=== PATIENT | male | born 1940 | race Caucasian/White ===

== ENCOUNTER 2018-09-20 17:35 | Inpatient (IN) | payer MEDICARE, OTHER, SELFPAY ==
[2018-09-20 18:15] VITALS: BP 168/75; PULSE 79; RESP 16; TEMP 36.3; O2SAT 95; BMI 22.3
[2018-09-20 20:37] VITALS: PULSE 80; O2SAT 95
--- NOTE | 2018-09-20 21:53 | PCM.HP.STD ---
Problem List (1) Debility Status: Acute (2) Multiple falls Status: Acute (3) Healthcare-associated pneumonia Status: Acute (4) Urinary tract infection Status: Acute (5) Chronic obstructive pulmonary disease Status: Chronic (6) Bronchiectasis Status: Chronic (7) Gastric mass Status: Acute (8) Intra-abdominal lymphadenopathy Status: Acute (9) Diabetes mellitus Status: Chronic (10) Hypertension Status: Chronic (11) Hyperlipidemia Status: Chronic (12) GERD (gastroesophageal reflux disease) Status: Chronic History of Present Illness Date of Admission: 09/20/18 Chief Complaint: Here for rehabilitation, strengthening, prior to disposition determination. The patient is a 78 year old Male with below past medical history significant for COPD(no home oxygen), former 30 pack year smoker, diabetes, HTN, presented to [facility] Emergency Department 09/13/2018 with shortness of breath, weakness, productive cough, fever, chills nausea. 1 month prior, he was treated for community acquired pneumonia at [facility]. 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 Patient was treated with Vancomycin, Zosyn, Azithromycin after huerta cultures. Urine antigens for s. pneumo, legionella negative, patient will continue IV Zosyn for 3 more days to complete 10 day total course of IV antibiotics. Urine culture grew. E. Faecalis which is PCN sensitive. Blood cultures negative. 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 EGD with biopsy recommended for 2.4 x 2.4CM gastric mass on smaller curvature of stomach. Patient declined EGD. Oncology consulted but unable to treat without tissue biopsy. Patient's cough, pneumonia, shortness of breath, bronchiectasis improved with treatment, he will be discharged on prednisone taper. 09/20/2018 Admit to TCU with debility, here for rehabilitation, strengthening, intravenous antibiotics, prior to disposition determination. Resident's code status is [id number]-A. Consider EGD with biopsy after resident regains his strength, stamina. Past Medical History Past Medical History (Chronic Problems): Chronic Problems Chronic obstructive pulmonary disease (Chronic) Bronchiectasis (Chronic) Diabetes mellitus (Chronic) Hypertension (Chronic) Hyperlipidemia (Chronic) GERD (gastroesophageal reflux disease) (Chronic) Allergies Iodinated Contrast- Oral and IV Dye [CONTRASTS] Adverse Reaction (Verified 09/20/18 19:28) Unknown NSAIDS (Non-Steroidal Anti-Inflamma Adverse Reaction (Verified 09/20/18 19:28) GI bleed Home Medications: Ambulatory Orders Medication Instructions Recorded Ipratropium/Albuterol Sulfate 3 ml INHALATION Q2H PRN PRN 09/20/18 [Duoneb] Losartan Potassium [Cozaar] 75 mg PO DAILY 09/20/18 Metformin HCl 500 mg PO DAILY 09/20/18 Metoprolol(XL)Succ [Toprol Xl 50 mg PO DAILY 09/20/18 (Beta Radha)] Pantoprazole Sodium [Protonix] 40 mg PO DAILY 09/20/18 Piperacillin Sodium/Tazobactam 4.5 gm IV Q6H 09/20/18 [Zosyn 4.5 Gram Vial] Prednisone 10 mg PO DAILY 09/20/18 Surgical History: no surgical history, - - Left heart cath, EGD with cauterization gastric ulcer. Psychiatric History: No pertinent psych hx Lives: Spouse/ Significant Other Smoking Status: Former smoker - 30 pack year smoking history. Tobacco Use: Non-smoker Alcohol: None Drugs: None - *Family History Maternal History Items: No pertinent history Paternal History Items: No pertinent history Review of Systems Constitutional: Denies: Chills, Fever, Weight Change HEENT: Denies: Head Aches, Sinus Congestion, Sinus Drainage Cardiovascular: Denies: Chest Pain, Palpitations Respiratory: Denies: Cough, Shortness of breath at rest, Sputum production Gastrointestinal: Denies: Abdominal Pain, Nausea, Vomiting Genitourinary: Denies: Dysuria Musculoskeletal: Denies: Joint Pain, Joint Tenderness Skin: Denies: Rash, Wounds Neurological: Denies: Numbness, Tingling, Focal weakness Psychiatric: Denies: Anxiety, Depression, Homicidal Ideations, Suicidal Ideations Hematologic/ Lymphatic: Denies: Easy Bruising, Easy Bleeding VTE Information - Inpt Only VTE Present on Admission: No VTE Mechan Device Prophylaxis: Knee High LAUREL Hose VTE Pharm Prophylaxis ordered?: Yes Patient Problems: Active and Suspected Problems Debility (Acute) Multiple falls (Acute) Healthcare-associated pneumonia (Acute) Urinary tract infection (Acute) Gastric mass (Acute) Intra-abdominal lymphadenopathy (Acute) - Physical Exam General: Alert, Oriented x3, Cooperative HEENT: Atraumatic, PERRLA, EOMI, Normocephalic Neck: Supple, No JVD, Negative Carotid Bruits Lungs: Diminished - at bases., Rhonchi - Few. Cardiovascular: Regular rate, No murmurs Abdomen: Bowel Sounds Present, Soft, Non Tender Extremities: No edema, Capillary Refill Less than 3 Seconds Skin: No rashes, No breakdown Musculoskeletal: No Tenderness to Palpation of Joints or Extremities Neurological: Cranial nerves II-XII grossly intact Psych/Mental Status: Normal Affect, Appropriate Vital Signs Temp Pulse Resp BP Pulse Ox 97.3 F L 79 16 168/75 H 95 09/20/18 18:15 09/20/18 18:15 09/20/18 18:15 09/20/18 18:15 09/20/18 18:15 Oxygen Delivery Method Room Air Weight: 64.637 kg Body Mass Index (BMI) 22.3 Intake and Output for Last 24 Hours 09/18/18 09/19/18 09/20/18 23:59 23:59 23:59 Intake Total 120 / 120 Output Total 100 / 100 Balance Assessment/Plan All Active Problems Debility (Acute) Multiple falls (Acute) Healthcare-associated pneumonia (Acute) Urinary tract infection (Acute) Gastric mass (Acute) Intra-abdominal lymphadenopathy (Acute) 78 year old male with below past medical history hospitalized for sepsis, secondary to healthcare associated pneumonia, complicated by gastric mass with gastrohepatic lymphadenopathy, but patient declined evaluation, admitted to TCU with debility, here for rehabilitation, strengthening, prior to disposition determination. Debility - PT/OT. Dysphagia - ST. Pain - Tylenol 1000MG Q6H PRN mild pain. Bowel - Miralax 17GM daily, Dulcolax 10MG daily PRN. Pneumonia vaccination - Administer Prevnar 13 and/or Pneumovax 23 as necessary. DVT prophylaxis - Lovenox 30MG SC daily. COPD - Duoneb 3ML Q2H PRN, Prednisone taper. Hypertension - Metoprolol succinate 50MG daily, Losartan 100MG daily. Diabetes Mellitus II - Metformin 500MG daily, check A1c. GERD - Pantoprazole 40MG daily. Healthcare associated pneumonia/E. Faecalis urinary tract infection - Zosyn 3.375GM IV Q8H thru 09/23/2018. Gastric mass with intra-abdominal lymphadenopathy - Consider EGD with biopsy as outpatient.
[2018-09-20] MEDS: Piperacil/Tazobactam 3.375 GM/50 ML ML IV (21:59)
[2018-09-20 22:00] VITALS: PULSE 79; RESP 18
[2018-09-20] MEDS: Ipratropium/Albuterol Sulfate 3 ML AMPUL.NEB INHALATION (22:00)
--- NOTE | 2018-09-20 22:03 | HP.PCM_ITS ---
Problem List (1) Debility Status: Acute (2) Multiple falls Status: Acute (3) Healthcare-associated pneumonia Status: Acute (4) Urinary tract infection Status: Acute (5) Chronic obstructive pulmonary disease Status: Chronic (6) Bronchiectasis Status: Chronic (7) Gastric mass Status: Acute (8) Intra-abdominal lymphadenopathy Status: Acute (9) Diabetes mellitus Status: Chronic (10) Hypertension Status: Chronic (11) Hyperlipidemia Status: Chronic (12) GERD (gastroesophageal reflux disease) Status: Chronic History of Present Illness Date of Admission: 09/20/18 Chief Complaint: Here for rehabilitation, strengthening, prior to disposition determination. The patient is a 78 year old Male with below past medical history significant for COPD(no home oxygen), former 30 pack year smoker, diabetes, HTN, presented to [facility] Emergency Department 09/13/2018 with shortness of breath, weakness, productive cough, fever, chills nausea. 1 month prior, he was treated for community acquired pneumonia at [facility]. 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 Patient was treated with Vancomycin, Zosyn, Azithromycin after huerta cultures. Urine antigens for s. pneumo, legionella negative, patient will continue IV Zosyn for 3 more days to complete 10 day total course of IV antibiotics. Urine culture grew. E. Faecalis which is PCN sensitive. Blood cultures negative. 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 EGD with biopsy recommended for 2.4 x 2.4CM gastric mass on smaller curvature of stomach. Patient declined EGD. Oncology consulted but unable to treat without tissue biopsy. Patient's cough, pneumonia, shortness of breath, bronchiectasis improved with treatment, he will be discharged on prednisone taper. 09/20/2018 Admit to TCU with debility, here for rehabilitation, strengthening, intravenous antibiotics, prior to disposition determination. Resident's code status is [email or web address]-A. Consider EGD with biopsy after resident regains his strength, stamina. Past Medical History Past Medical History (Chronic Problems): Chronic Problems Chronic obstructive pulmonary disease (Chronic) Bronchiectasis (Chronic) Diabetes mellitus (Chronic) Hypertension (Chronic) Hyperlipidemia (Chronic) GERD (gastroesophageal reflux disease) (Chronic) Allergies Iodinated Contrast- Oral and IV Dye [CONTRASTS] Adverse Reaction (Verified 09/20/18 19:28) Unknown NSAIDS (Non-Steroidal Anti-Inflamma Adverse Reaction (Verified 09/20/18 19:28) GI bleed Home Medications: Ambulatory Orders Medication Instructions Recorded Ipratropium/Albuterol Sulfate 3 ml INHALATION Q2H PRN PRN 09/20/18 [Duoneb] Losartan Potassium [Cozaar] 75 mg PO DAILY 09/20/18 Metformin HCl 500 mg PO DAILY 09/20/18 Metoprolol(XL)Succ [Toprol Xl 50 mg PO DAILY 09/20/18 (Beta Radha)] Pantoprazole Sodium [Protonix] 40 mg PO DAILY 09/20/18 Piperacillin Sodium/Tazobactam 4.5 gm IV Q6H 09/20/18 [Zosyn 4.5 Gram Vial] Prednisone 10 mg PO DAILY 09/20/18 Surgical History: no surgical history, - - Left heart cath, EGD with cauterization gastric ulcer. Psychiatric History: No pertinent psych hx Lives: Spouse/ Significant Other Smoking Status: Former smoker - 30 pack year smoking history. Tobacco Use: Non-smoker Alcohol: None Drugs: None - *Family History Maternal History Items: No pertinent history Paternal History Items: No pertinent history Review of Systems Constitutional: Denies: Chills, Fever, Weight Change HEENT: Denies: Head Aches, Sinus Congestion, Sinus Drainage Cardiovascular: Denies: Chest Pain, Palpitations Respiratory: Denies: Cough, Shortness of breath at rest, Sputum production Gastrointestinal: Denies: Abdominal Pain, Nausea, Vomiting Genitourinary: Denies: Dysuria Musculoskeletal: Denies: Joint Pain, Joint Tenderness Skin: Denies: Rash, Wounds Neurological: Denies: Numbness, Tingling, Focal weakness Psychiatric: Denies: Anxiety, Depression, Homicidal Ideations, Suicidal Ideations Hematologic/ Lymphatic: Denies: Easy Bruising, Easy Bleeding VTE Information - Inpt Only VTE Present on Admission: No VTE Mechan Device Prophylaxis: Knee High LAUREL Hose VTE Pharm Prophylaxis ordered?: Yes Patient Problems: Active and Suspected Problems Debility (Acute) Multiple falls (Acute) Healthcare-associated pneumonia (Acute) Urinary tract infection (Acute) Gastric mass (Acute) Intra-abdominal lymphadenopathy (Acute) - Physical Exam General: Alert, Oriented x3, Cooperative HEENT: Atraumatic, PERRLA, EOMI, Normocephalic Neck: Supple, No JVD, Negative Carotid Bruits Lungs: Diminished - at bases., Rhonchi - Few. Cardiovascular: Regular rate, No murmurs Abdomen: Bowel Sounds Present, Soft, Non Tender Extremities: No edema, Capillary Refill Less than 3 Seconds Skin: No rashes, No breakdown Musculoskeletal: No Tenderness to Palpation of Joints or Extremities Neurological: Cranial nerves II-XII grossly intact Psych/Mental Status: Normal Affect, Appropriate Vital Signs Temp Pulse Resp BP Pulse Ox 97.3 F L 79 16 168/75 H 95 09/20/18 18:15 09/20/18 18:15 09/20/18 18:15 09/20/18 18:15 09/20/18 18:15 Oxygen Delivery Method Room Air Weight: 64.637 kg Body Mass Index (BMI) 22.3 Intake and Output for Last 24 Hours 09/18/18 09/19/18 09/20/18 23:59 23:59 23:59 Intake Total 120 / 120 Output Total 100 / 100 Balance Assessment/Plan All Active Problems Debility (Acute) Multiple falls (Acute) Healthcare-associated pneumonia (Acute) Urinary tract infection (Acute) Gastric mass (Acute) Intra-abdominal lymphadenopathy (Acute) 78 year old male with below past medical history hospitalized for sepsis, secondary to healthcare associated pneumonia, complicated by gastric mass with gastrohepatic lymphadenopathy, but patient declined evaluation, admitted to TCU with debility, here for rehabilitation, strengthening, prior to disposition determination. * Debility - PT/OT. * Dysphagia - ST. * Pain - Tylenol 1000MG Q6H PRN mild pain. * Bowel - Miralax 17GM daily, Dulcolax 10MG daily PRN. * Pneumonia vaccination - Administer Prevnar 13 and/or Pneumovax 23 as necessary. * DVT prophylaxis - Lovenox 30MG SC daily. * COPD - Duoneb 3ML Q2H PRN, Prednisone taper. * Hypertension - Metoprolol succinate 50MG daily, Losartan 100MG daily. * Diabetes Mellitus II - Metformin 500MG daily, check A1c. * GERD - Pantoprazole 40MG daily. * Healthcare associated pneumonia/E. Faecalis urinary tract infection - Zosyn 3.375GM IV Q8H thru 09/23/2018. * Gastric mass with intra-abdominal lymphadenopathy - Consider EGD with biopsy as outpatient.
--- NOTE | 2018-09-21 01:20 | NURSING ---
Pt noted to be urinating 100cc at a time. bladder scanned for 240cc of urine. Continue to monitor.
[2018-09-21] MEDS: Menthol/Lanolin/Calamine/Znox 113 GM Tube 1 APPLIC TOPICAL ×2 (05:19→16:59)
[2018-09-21] MEDS: Losartan Potassium 100 MG Tablet PO (05:20)
[2018-09-21] MEDS: Pantoprazole Sodium 40 MG Tablet PO (05:21)
[2018-09-21] MEDS: Enoxaparin 30 MG/0.3 ML Syringe SC (05:21)
[2018-09-21] MEDS: Piperacil/Tazobactam 3.375 GM/50 ML ML IV ×3 (05:24→21:06)
[2018-09-21] MEDS: 0.9% NaCl IVPB Med Flush (250 mL) 15 ML IV ×2 (05:24→21:01)
[2018-09-21] MEDS: 0.9% NaCl Peripheral Flush Adult/Peds IV ×2 (05:24→14:16)
[2018-09-21 05:25] VITALS: BP 162/96; PULSE 85
[2018-09-21] MEDS: Metoprolol(XL)Succ 50 MG Tablet PO (05:25)
[2018-09-21 06:24] LABS: Absolute Lymphocyte Count 1.33 X10^3/ul (0.83-4.51); Absolute Neutrophil Count 8.7 X10^3/uL (2.0-7.7); Basophil# 0.01 X10^3/uL; Basophil% 0.1 % (0-1); Eosinophil# 0.04 X10^3/uL; Eosinophils% 0.4 % (0-5); Hematocrit 42.5 % (40-54); Hemoglobin 13.8 g/dl (13.0-16.5); Lymphocyte # 1.33 X10^3/ul (4.0); Mean Corp Hgb Conc 32.5 g/gl (32-36); Mean Corpuscular Hgb 29.6 pg (27.0-32.0); Mean Corpuscular Volume 91.2 fL (80-94); Mean Platelet Vol. 10.2 fl (6.2-12.0); Monocyte# 0.89 X10^3/uL; Neutrophil % 78.7 % (47-70); Platelet Count 311 K/mm3 (150-450); RBC Distribution Width CV 13.4 % (11.6-14.6); RBC Distribution Width SD 43.6 fl (35.1-43.9); Red Blood Count 4.66 M/mm3 (4.6-6.2); White Blood Count 11.1 K/mm3 (4.4-11.0)
[2018-09-21 06:36] LABS: Bedside Glucose 160 mg/dL (70-110)
[2018-09-21 06:50] LABS: Anion Gap 9 (5-15); BUN 28 mg/dL (7-18); BUN/Creat Ratio 23.9 RATIO (10-20); Chloride 103 mmol/L (98-107); Creatinine, Serum 1.17 mg/dL (0.70-1.30); EST Glomerular Filtration Rate 64 mL/min (>60); Est Glom Filt Rate - Afr Amer 77 mL/min (>60); Estimated Creatinine Clearance 46.81 ml/min; Glucose 147 mg/dL (74-106); Potassium 3.9 mmol/L (3.5-5.1); Sodium Level 138 mmol/L (136-145)
[2018-09-21 07:01] LABS: POSITIVE COUNT NO; POSITIVE DIFFERENTIAL NO; POSITIVE MORPHOLOGY NO
[2018-09-21] MEDS: predniSONE 10 MG Tablet 40 MG PO (08:08)
[2018-09-21 08:48] LABS: Hemoglobin A1c 7.8 % (4.2-6.3)
--- NOTE | 2018-09-21 10:54 | NURSING ---
Addendum entered by Larisa Boyd 09/21/18 15:50: pt updated on new order, agreeable. Original Note: Addendum entered by Larisa Boyd 09/21/18 11:35: new order added by Dr Cruz [facility] for BPH Original Note: Dr Cruz updated on A1c, no new orders.
[2018-09-21] MEDS: Tamsulosin HCl 0.4 MG Capsule PO ×2 (11:34→17:00)
[2018-09-21] MEDS: Tuberculin,Purif.prot.deriv. 50 TU/ML Vial 5 ML ID (11:48)
[2018-09-21 16:00] VITALS: BP 123/69; PULSE 84; RESP 18; TEMP 35.7; O2SAT 93
--- NOTE | 2018-09-21 18:43 | NURSING ---
Gel cushion placed under pt d/t bottom hurting, pt felt that it made it worse. tried another it was too painful. pillow placed under buttocks and pt feels thats better than cushoins tried previously.
[2018-09-21] MEDS: Mirtazapine 15 MG Tablet 7.5 MG PO (21:01)
[2018-09-21 21:22] VITALS: PULSE 82; RESP 18
[2018-09-21] MEDS: Ipratropium/Albuterol Sulfate 3 ML AMPUL.NEB INHALATION (21:22)
[2018-09-22] VITALS (8 sets, daily range): BP systolic 104–137; BP diastolic 65–75; PULSE 77–113; RESP 16–24; TEMP 36.3–36.5; O2SAT 90–98
--- NOTE | 2018-09-22 02:11 | NURSING ---
Pt called out to nurses' station reporting he can't breath. Vitals obtained, O2 applied, posterior lungs with wheezes. Dr Cruz notified N.O. DuoNeb now, CXR, and Vest therapy q shift. Will continue to monitor and asses.
--- NOTE | 2018-09-22 02:50 | RAD_ITS ---
STUDY: X-RAY CHEST REASON FOR EXAM: Male, 78 years old. Cough TECHNIQUE: PA and lateral COMPARISON: None. FINDINGS: Lungs are well expanded. There are bibasilar infiltrates greater on the LEFT. There is a small LEFT pleural effusion. There is NO pneumothorax. Normal size heart. Normal mediastinum and yoselyn. Normal visualized pulmonary arteries. Normal visualized aortic arch and descending thoracic aorta. Normal visualized thoracic spine. Normal visualized ribs, clavicles, and shoulders. There is no demonstrated abnormality of the visualized soft tissue structures of the upper abdomen. RAD/Chest PA and Lateral IMPRESSION: Lungs are well expanded. There are bibasilar infiltrates greater on the LEFT. There is a small LEFT pleural effusion. There is NO pneumothorax. There is no demonstrated pleural abnormality. Normal size heart. Electronically Signed: Grupo Riley MD at 7:52 EST , Service support ,
[2018-09-22] MEDS: Piperacil/Tazobactam 3.375 GM/50 ML ML IV ×3 (05:06→21:39)
[2018-09-22] MEDS: Menthol/Lanolin/Calamine/Znox 113 GM Tube 1 APPLIC TOPICAL ×2 (05:13→17:23)
[2018-09-22] MEDS: Metoprolol(XL)Succ 50 MG Tablet PO (06:29)
[2018-09-22] MEDS: Losartan Potassium 100 MG Tablet PO (06:29)
[2018-09-22] MEDS: Pantoprazole Sodium 40 MG Tablet PO (06:29)
[2018-09-22] MEDS: Enoxaparin 30 MG/0.3 ML Syringe SC (06:30)
[2018-09-22] MEDS: Ipratropium/Albuterol Sulfate 3 ML AMPUL.NEB INHALATION ×3 (06:45→21:08)
[2018-09-22 06:46] LABS: Bedside Glucose 126 mg/dL (70-110)
--- NOTE | 2018-09-22 08:08 | NURSING ---
Dr. Cruz reviewed CXR, NO for incentive spirometer.
--- NOTE | 2018-09-22 08:37 | NURSING ---
NO for albuterol nebs [id number] PRN and incentive spirometer.
[2018-09-22] MEDS: predniSONE 10 MG Tablet PO (09:00)
[2018-09-22] MEDS: Acetaminophen 500 MG Tablet 1000 MG PO (10:29)
[2018-09-22] MEDS: 0.9% NaCl Peripheral Flush Adult/Peds IV ×3 (10:30→21:40)
--- NOTE | 2018-09-22 12:33 | PCM.PN.RX ---
<Farhat Garcia D - Last Filed: 09/22/18 12:33> Progress Note - Pharmacy Subjective: TCU Admission Objective: Allergies Iodinated Contrast- Oral and IV Dye [CONTRASTS] Adverse Reaction (Verified 09/20/18 19:28) Unknown NSAIDS (Non-Steroidal Anti-Inflamma Adverse Reaction (Verified 09/20/18 19:28) GI bleed Current Medications Generic Name Dose Route Start Last Admin Trade Name Freq PRN Reason Stop Dose Admin Acetaminophen 1,000 mg 09/20/18 22:14 09/22/18 10:29 Tylenol PO 1,000 mg Q8H PRN PRN Administration MILD PAIN (1-11/28) Albuterol Sulfate 2.5 mg 09/22/18 08:31 Ventolin Aerosols INHALATION Q2H PRN PRN SHORTNESS OF BREATH Albuterol/Ipratropium 3 ml 09/21/18 16:45 09/22/18 06:45 Duoneb INHALATION 3 ml Q6HWA.RT GLORIA Administration Bisacodyl 10 mg 09/20/18 22:15 Dulcolax PO DAILY PRN Constipation Calamine/Phenol 1 applic 09/21/18 06:00 09/22/18 05:13 Calmoseptine Ointment TOPICAL 1 applicatio BID GLORIA Administration Protocol Enoxaparin Sodium 30 mg 09/21/18 06:00 09/22/18 06:30 Lovenox SC 30 mg DAILY@0600 GLORIA Administration Piperacillin Sod/Tazobactam Sod 3.375 gm in 50 mls @ 12.5 mls/hr 09/20/18 22:00 09/22/18 05:06 Zosyn IV 09/23/18 23:59 12.5 mls/hr Q8 GLORIA Administration Sodium Chloride 250 mls @ 15 mls/hr 09/20/18 23:30 09/21/18 21:01 IV 15 mls/hr .[id number] PRN Administration SALINE FLUSH Losartan Potassium 100 mg 09/21/18 06:00 09/22/18 06:29 Cozaar PO 100 mg DAILY GLORIA Administration Metformin HCl 500 mg 09/21/18 08:00 09/22/18 09:00 Glucophage PO 500 mg DAILY@0800 GLORIA Administration Metoprolol Succinate 50 mg 09/21/18 06:00 09/22/18 06:29 Toprol Xl (Beta Radha) PO 50 mg DAILY GLORIA Administration Mirtazapine 7.5 mg 09/21/18 22:00 09/21/18 21:01 Remeron PO 7.5 mg QHS GLORIA Administration Multi-Ingredient Cream 1 applic 09/21/18 01:20 Eucerin TOPICAL BID PRN PRN Protocol Pantoprazole Sodium 40 mg 09/21/18 06:00 09/22/18 06:29 Protonix PO 40 mg DAILY GLORIA Administration Polyethylene Glycol 17 gm 09/21/18 06:00 09/22/18 06:30 Miralax PO Not Given DAILY GLORIA Prednisone 40 mg 09/22/18 08:00 09/22/18 09:00 PO 09/30/18 07:59 40 mg DAILY@0800 GLORIA Administration Taper Sodium Chloride 5 - 15 ml 09/20/18 23:30 09/22/18 10:30 IV 10 ml UD PRN Administration SALINE FLUSH Tamsulosin HCl 0.4 mg 09/21/18 17:30 09/21/18 17:00 Flomax PO 0.4 mg DAILY@1730 GLORIA Administration Tuberculin PPD 5 tu 09/28/18 10:00 Tubersol, Aplisol, Ppd ID 09/28/18 10:01 X1 ONE Problem List Debility (Acute) Multiple falls (Acute) Healthcare-associated pneumonia (Acute) Urinary tract infection (Acute) Chronic obstructive pulmonary disease (Chronic) Bronchiectasis (Chronic) Gastric mass (Acute) Intra-abdominal lymphadenopathy (Acute) Diabetes mellitus (Chronic) Hypertension (Chronic) Hyperlipidemia (Chronic) GERD (gastroesophageal reflux disease) (Chronic) Vital Signs Temp Pulse Resp BP Pulse Ox 97.7 F L 77 18 137/75 H 90 09/22/18 02:03 09/22/18 06:45 09/22/18 06:45 09/22/18 06:29 09/22/18 06:45 Oxygen Flow Rate (L/min) 2 Oxygen Delivery Method Room Air Weight: 61.915 kg Body Mass Index (BMI) 22.3 Sodium 138 mmol/L (136-145) 09/21/18 05:15 Potassium 3.9 mmol/L (3.5-5.1) 09/21/18 05:15 Chloride 103 mmol/L (98-107) 09/21/18 05:15 Carbon Dioxide 26.0 mmol/L (21.0-32.0) 09/21/18 05:15 Anion Gap 9 (5-15) 09/21/18 05:15 BUN 28 mg/dL (7-18) H 09/21/18 05:15 Creatinine 1.17 mg/dL (0.70-1.30) 09/21/18 05:15 Est GFR (MDRD) Af Amer 77 mL/min (>60) 09/21/18 05:15 Est GFR (MDRD) Non-Af 64 mL/min (>60) 09/21/18 05:15 BUN/Creatinine Ratio 23.9 RATIO (10-20) H 09/21/18 05:15 Glucose 147 mg/dL (74-106) H 09/21/18 05:15 Assessment/Plan: 1) Pain APAP for mild pain. Continue to monitor prn medication use, daily pain scores. 2) Pulm Duoneb aerosols, prn albuterol, prednisone. Continue to monitor prn medication use, for shortness of breath. 3) HTN Losartan, metoprolol XL. Continue to monitor BP/HR, electrolytes, renal function. 4) DM2 Metformin daily. Continue to monitor BGT, renal function. 5) GI Pantoprazole daily. Continue to monitor s/s GI distress. 6) ID Piperacillin/tazobactam until 09/23. Continue to monitor s/s infection. 7) BPH Tamsulosin daily. Continue to monitor for symptoms. 8) DVT PPx Enoxaparin daily. Continue to monitor for bleeding/clot. Psychotropic Medications: 9) Appetite/Insomnia Mirtazapine at HS. Continue to monitor for insomnia, weight loss. Unnecessary Medications: None Bowel Regimen: 10) PEG, prn bisacodyl. Continue to monitor prn medication use, for constipation/diarrhea. Date of Note:: 09/22/18 - Provider Comments Provider responsibility: Provider responsible to enter orders to implement recommendations <Dion Cruz Chi - Last Filed: 09/22/18 17:54> Progress Note - Pharmacy Subjective: [] Objective: Allergies Iodinated Contrast- Oral and IV Dye [CONTRASTS] Adverse Reaction (Verified 09/20/18 19:28) Unknown NSAIDS (Non-Steroidal Anti-Inflamma Adverse Reaction (Verified 09/20/18 19:28) GI bleed Current Medications Generic Name Dose Route Start Last Admin Trade Name Freq PRN Reason Stop Dose Admin Acetaminophen 1,000 mg 09/20/18 22:14 09/22/18 10:29 Tylenol PO 1,000 mg Q8H PRN PRN Administration MILD PAIN (1-10) Albuterol Sulfate 2.5 mg 09/22/18 08:31 Ventolin Aerosols INHALATION Q2H PRN PRN SHORTNESS OF BREATH Albuterol/Ipratropium 3 ml 09/21/18 16:45 09/22/18 13:58 Duoneb INHALATION 3 ml Q6HWA.RT GLORIA Administration Bisacodyl 10 mg 09/20/18 22:15 Dulcolax PO DAILY PRN Constipation Calamine/Phenol 1 applic 09/21/18 06:00 09/22/18 17:23 Calmoseptine Ointment TOPICAL 1 applicatio BID GLORIA Administration Protocol Enoxaparin Sodium 30 mg 09/21/18 06:00 09/22/18 06:30 Lovenox SC 30 mg DAILY@0600 GLORIA Administration Piperacillin Sod/Tazobactam Sod 3.375 gm in 50 mls @ 12.5 mls/hr 09/20/18 22:00 09/22/18 13:35 Zosyn IV 09/23/18 23:59 12.5 mls/hr Q8 GLORIA Administration Sodium Chloride 250 mls @ 15 mls/hr 09/20/18 23:30 09/21/18 21:01 IV 15 mls/hr .[id number] PRN Administration SALINE FLUSH Losartan Potassium 100 mg 09/21/18 06:00 09/22/18 06:29 Cozaar PO 100 mg DAILY GLORIA Administration Metformin HCl 500 mg 09/21/18 08:00 09/22/18 09:00 Glucophage PO 500 mg DAILY@0800 GLORIA Administration Metoprolol Succinate 50 mg 09/21/18 06:00 09/22/18 06:29 Toprol Xl (Beta Radha) PO 50 mg DAILY GLORIA Administration Mirtazapine 7.5 mg 09/21/18 22:00 09/21/18 21:01 Remeron PO 7.5 mg QHS GLORIA Administration Multi-Ingredient Cream 1 applic 09/21/18 01:20 Eucerin TOPICAL BID PRN PRN Protocol Pantoprazole Sodium 40 mg 09/21/18 06:00 09/22/18 06:29 Protonix PO 40 mg DAILY GLORIA Administration Polyethylene Glycol 17 gm 09/21/18 06:00 09/22/18 06:30 Miralax PO Not Given DAILY GLORIA Prednisone 40 mg 09/22/18 08:00 09/22/18 09:00 PO 09/30/18 07:59 40 mg DAILY@0800 GLORIA Administration Taper Sodium Chloride 5 - 15 ml 09/20/18 23:30 09/22/18 13:36 IV 10 ml UD PRN Administration SALINE FLUSH Tamsulosin HCl 0.4 mg 09/21/18 17:30 09/22/18 17:22 Flomax PO 0.4 mg DAILY@1730 GLORIA Administration Tuberculin PPD 5 tu 09/28/18 10:00 Tubersol, Aplisol, Ppd ID 09/28/18 10:01 X1 ONE Problem List Debility (Acute) Multiple falls (Acute) Healthcare-associated pneumonia (Acute) Urinary tract infection (Acute) Chronic obstructive pulmonary disease (Chronic) Bronchiectasis (Chronic) Gastric mass (Acute) Intra-abdominal lymphadenopathy (Acute) Diabetes mellitus (Chronic) Hypertension (Chronic) Hyperlipidemia (Chronic) GERD (gastroesophageal reflux disease) (Chronic) Vital Signs Temp Pulse Resp BP Pulse Ox 97.3 F L 92 18 104/65 95 09/22/18 15:49 09/22/18 15:49 09/22/18 15:49 09/22/18 15:49 09/22/18 15:49 Oxygen Flow Rate (L/min) 2 Oxygen Delivery Method Room Air Weight: 61.915 kg Body Mass Index (BMI) 22.3 Sodium 138 mmol/L (136-145) 09/21/18 05:15 Potassium 3.9 mmol/L (3.5-5.1) 09/21/18 05:15 Chloride 103 mmol/L (98-107) 09/21/18 05:15 Carbon Dioxide 26.0 mmol/L (21.0-32.0) 09/21/18 05:15 Anion Gap 9 (5-15) 09/21/18 05:15 BUN 28 mg/dL (7-18) H 09/21/18 05:15 Creatinine 1.17 mg/dL (0.70-1.30) 09/21/18 05:15 Est GFR (MDRD) Af Amer 77 mL/min (>60) 09/21/18 05:15 Est GFR (MDRD) Non-Af 64 mL/min (>60) 09/21/18 05:15 BUN/Creatinine Ratio 23.9 RATIO (10-20) H 09/21/18 05:15 Glucose 147 mg/dL (74-106) H 09/21/18 05:15 Assessment/Plan: Psychotropic Medications: Unnecessary Medications: Bowel Regimen: - Provider Comments Provider responsibility: Provider responsible to enter orders to implement recommendations Provider Comments to Recommendations by Pharmacy: Agree
[2018-09-22] MEDS: Tamsulosin HCl 0.4 MG Capsule PO (17:22)
--- NOTE | 2018-09-22 18:46 | NURSING ---
NO to add magic cup to meals.
[2018-09-22] MEDS: 0.9% NaCl IVPB Med Flush (250 mL) 15 ML IV (21:39)
[2018-09-22] MEDS: Mirtazapine 15 MG Tablet 7.5 MG PO (21:40)
[2018-09-22] MEDS: Albuterol 2.5 MG/3 ML VIAL.NEB. INHALATION (23:20)
[2018-09-23] MEDS: Piperacil/Tazobactam 3.375 GM/50 ML ML IV ×3 (05:08→21:07)
[2018-09-23] MEDS: Menthol/Lanolin/Calamine/Znox 113 GM Tube 1 APPLIC TOPICAL ×2 (05:10→17:54)
[2018-09-23 05:11] VITALS: BP 150/81; PULSE 74
[2018-09-23] MEDS: Metoprolol(XL)Succ 50 MG Tablet PO (05:11)
[2018-09-23] MEDS: Pantoprazole Sodium 40 MG Tablet PO (05:11)
[2018-09-23] MEDS: Losartan Potassium 100 MG Tablet PO (05:11)
[2018-09-23] MEDS: Enoxaparin 30 MG/0.3 ML Syringe SC (05:11)
[2018-09-23 06:31] LABS: Bedside Glucose 143 mg/dL (70-110)
[2018-09-23 06:45] VITALS: PULSE 82; RESP 20
[2018-09-23] MEDS: Ipratropium/Albuterol Sulfate 3 ML AMPUL.NEB INHALATION ×3 (06:45→23:38)
[2018-09-23] MEDS: predniSONE 10 MG Tablet PO (08:04)
[2018-09-23 11:40] VITALS: PULSE 84; RESP 20
[2018-09-23] MEDS: 0.9% NaCl Peripheral Flush Adult/Peds IV ×2 (14:06→21:07)
[2018-09-23] MEDS: 0.9% NaCl IVPB Med Flush (250 mL) 15 ML IV (14:06)
[2018-09-23 15:05] LABS: Bedside Glucose 226 mg/dL (70-110)
--- NOTE | 2018-09-23 15:20 | NURSING ---
Addendum entered by Sandra Oconnell 09/23/18 18:10: DR. THORNE AWARE. N.O. FOR NS BOLUS. Original Note: 1500-KELLEIGH FROM P.T. INFORMED THIS NURSE THAT R' BECAME UNSTEADY AND C/O DIZZINESS WHILE IN THERAPY. ASSISTED R' BACK TO R/C. VS OBTAINED- 125/78, 92HR, 97%RA, 96.1, 18R. ONCE BACK IN R/C R' DENIES FURTHER DIZZINESS. NEURO CHECKS WNL. R' DENIED CP. R' SLIGHTLY SOB. BLOOD SUGAR CHECKED-226. ENCOURAGED R' TO DRINK FLUIDS. THICKENED JUICE GIVEN PER REQUEST. WILL MONITOR. RESTING AT THIS TIME WITH LEGS ELEVATED IN R/C.
[2018-09-23 15:46] VITALS: BP 125/78; PULSE 92; RESP 18; TEMP 35.6; O2SAT 96
[2018-09-23] MEDS: Tamsulosin HCl 0.4 MG Capsule PO (17:54)
--- NOTE | 2018-09-23 18:10 | NURSING ---
NO for 1L IV NS bolus.
[2018-09-23] MEDS: 0.9% Normal Saline 1,000 ML 999 ML IV (18:12)
[2018-09-23] MEDS: Mirtazapine 15 MG Tablet 7.5 MG PO (20:23)
[2018-09-23 23:37] VITALS: PULSE 82; RESP 20
[2018-09-24 05:16] VITALS: BP 158/80; PULSE 78
[2018-09-24] MEDS: Losartan Potassium 100 MG Tablet PO (05:16)
[2018-09-24] MEDS: Pantoprazole Sodium 40 MG Tablet PO (05:16)
[2018-09-24] MEDS: Metoprolol(XL)Succ 50 MG Tablet PO (05:16)
[2018-09-24] MEDS: Menthol/Lanolin/Calamine/Znox 113 GM Tube 1 APPLIC TOPICAL ×2 (05:17→16:05)
[2018-09-24] MEDS: Enoxaparin 30 MG/0.3 ML Syringe SC (05:17)
[2018-09-24 06:36] LABS: Bedside Glucose 115 mg/dL (70-110)
[2018-09-24 06:45] VITALS: PULSE 88; RESP 18; O2SAT 95
[2018-09-24] MEDS: Ipratropium/Albuterol Sulfate 3 ML AMPUL.NEB INHALATION ×2 (06:45→13:40)
[2018-09-24] MEDS: predniSONE 10 MG Tablet PO (08:04)
[2018-09-24 13:40] VITALS: PULSE 86; RESP 16
[2018-09-24 15:21] VITALS: BP 119/77; PULSE 93; RESP 18; TEMP 36.9; O2SAT 94
[2018-09-24] MEDS: Tamsulosin HCl 0.4 MG Capsule PO (17:29)
--- NOTE | 2018-09-24 18:45 | NURSING ---
Attempt made to move pt closer to nurses' station for safety. Pt transferred to rm 12. Pt very upset and angry. Pt informed staff he was going to transfer back to rm [address] Cruz aware. Dr Cruz requesting staff transfer pt back to rm 19.
[2018-09-24] MEDS: Mirtazapine 15 MG Tablet 7.5 MG PO (20:34)
[2018-09-25 06:03] VITALS: BP 148/77; PULSE 92
[2018-09-25] MEDS: Metoprolol(XL)Succ 50 MG Tablet PO (06:03)
[2018-09-25] MEDS: Enoxaparin 30 MG/0.3 ML Syringe SC (06:04)
[2018-09-25] MEDS: Polyethylene Glycol 3350 17 GM PACKET PO (06:04)
[2018-09-25] MEDS: Pantoprazole Sodium 40 MG Tablet PO (06:04)
[2018-09-25] MEDS: Menthol/Lanolin/Calamine/Znox 113 GM Tube 1 APPLIC TOPICAL ×2 (06:04→18:16)
[2018-09-25] MEDS: Losartan Potassium 100 MG Tablet PO (06:04)
[2018-09-25 06:31] LABS: Bedside Glucose 124 mg/dL (70-110)
[2018-09-25 06:35] VITALS: PULSE 88; RESP 20; O2SAT 96
[2018-09-25] MEDS: Ipratropium/Albuterol Sulfate 3 ML AMPUL.NEB INHALATION ×3 (06:35→21:15)
[2018-09-25] MEDS: predniSONE 10 MG Tablet PO (08:04)
[2018-09-25 13:20] VITALS: PULSE 85; RESP 20
[2018-09-25 16:00] VITALS: BP 121/71; PULSE 106; RESP 18; TEMP 35.8; O2SAT 95
[2018-09-25] MEDS: Tamsulosin HCl 0.4 MG Capsule PO (18:14)
[2018-09-25] MEDS: Mirtazapine 15 MG Tablet 7.5 MG PO (21:00)
[2018-09-25 21:15] VITALS: PULSE 93; RESP 18
--- NOTE | 2018-09-25 21:32 | CPS ---
chun not done this round, pt very drowsy, will be done in am
[2018-09-26 05:44] VITALS: BP 129/58; PULSE 109
[2018-09-26] MEDS: Pantoprazole Sodium 40 MG Tablet PO (05:44)
[2018-09-26] MEDS: Metoprolol(XL)Succ 50 MG Tablet PO (05:44)
[2018-09-26] MEDS: Losartan Potassium 100 MG Tablet PO (05:45)
[2018-09-26] MEDS: Enoxaparin 30 MG/0.3 ML Syringe SC (05:45)
[2018-09-26] MEDS: Menthol/Lanolin/Calamine/Znox 113 GM Tube 1 APPLIC TOPICAL ×2 (05:52→17:27)
[2018-09-26 06:46] LABS: Bedside Glucose 147 mg/dL (70-110)
[2018-09-26] MEDS: Ipratropium/Albuterol Sulfate 3 ML AMPUL.NEB INHALATION (06:50)
[2018-09-26 07:07] VITALS: PULSE 89; RESP 17; O2SAT 95
--- NOTE | 2018-09-26 07:08 | CPS ---
did not do vest, patient sleeping
[2018-09-26] MEDS: predniSONE 10 MG Tablet PO (08:24)
[2018-09-26 13:18] VITALS: PULSE 82; RESP 18
[2018-09-26 15:25] VITALS: BP 109/55; PULSE 91; RESP 17; TEMP 36.9; O2SAT 95
[2018-09-26] MEDS: Tamsulosin HCl 0.4 MG Capsule PO (17:27)
[2018-09-26] MEDS: Mirtazapine 15 MG Tablet 7.5 MG PO (19:42)
[2018-09-27 05:07] VITALS: BP 125/66; PULSE 93
[2018-09-27] MEDS: Metoprolol(XL)Succ 50 MG Tablet PO (05:07)
[2018-09-27] MEDS: Losartan Potassium 50 MG Tablet PO (05:08)
[2018-09-27] MEDS: Pantoprazole Sodium 40 MG Tablet PO (05:08)
[2018-09-27] MEDS: Enoxaparin 30 MG/0.3 ML Syringe SC (05:08)
[2018-09-27] MEDS: Menthol/Lanolin/Calamine/Znox 113 GM Tube 1 APPLIC TOPICAL ×2 (05:11→17:51)
[2018-09-27 06:37] VITALS: PULSE 87; RESP 18; O2SAT 97
[2018-09-27] MEDS: Ipratropium/Albuterol Sulfate 3 ML AMPUL.NEB INHALATION ×2 (06:37→18:34)
[2018-09-27 06:45] LABS: Bedside Glucose 114 mg/dL (70-110)
[2018-09-27] MEDS: predniSONE 10 MG Tablet PO (08:46)
[2018-09-27 12:55] VITALS: PULSE 100; RESP 16
[2018-09-27 15:45] VITALS: BP 120/67; PULSE 87; RESP 16; TEMP 35.8; O2SAT 97
--- NOTE | 2018-09-27 16:03 | CASEMGMT ---
Brief interview for mental status (BIMS) and resident mood interview (PHQ-9) completed on this day. BIMS score 15/15. PHQ-9 score
[2018-09-27] MEDS: Tamsulosin HCl 0.4 MG Capsule PO (17:51)
[2018-09-27 18:34] VITALS: PULSE 88; RESP 16; O2SAT 97
[2018-09-27] MEDS: Mirtazapine 15 MG Tablet 7.5 MG PO (20:30)
[2018-09-28] MEDS: Polyethylene Glycol 3350 17 GM PACKET PO (06:02)
[2018-09-28 06:03] VITALS: BP 116/63; PULSE 84
[2018-09-28] MEDS: Losartan Potassium 50 MG Tablet PO (06:03)
[2018-09-28] MEDS: Enoxaparin 30 MG/0.3 ML Syringe SC (06:03)
[2018-09-28] MEDS: Metoprolol(XL)Succ 50 MG Tablet PO (06:03)
[2018-09-28] MEDS: Pantoprazole Sodium 40 MG Tablet PO (06:03)
[2018-09-28] MEDS: Menthol/Lanolin/Calamine/Znox 113 GM Tube 1 APPLIC TOPICAL ×2 (06:14→16:44)
[2018-09-28 06:24] LABS: Absolute Lymphocyte Count 2.34 X10^3/ul (0.83-4.51); Absolute Neutrophil Count 4.6 X10^3/uL (2.0-7.7); Basophil# 0.03 X10^3/uL; Basophil% 0.4 % (0-1); Eosinophil# 0.08 X10^3/uL; Hematocrit 36.1 % (40-54); Hemoglobin 11.4 g/dl (13.0-16.5); Lymphocyte # 2.34 X10^3/ul (4.0); Lymphocyte % 30.5 % (19-41); Mean Corp Hgb Conc 31.6 g/gl (32-36); Mean Corpuscular Hgb 29.6 pg (27.0-32.0); Mean Corpuscular Volume 93.8 fL (80-94); Mean Platelet Vol. 10.6 fl (6.2-12.0); Monocyte# 0.59 X10^3/uL; Monocyte% 7.7 % (0-10); Platelet Count 198 K/mm3 (150-450); RBC Distribution Width CV 14.7 % (11.6-14.6); RBC Distribution Width SD 48.2 fl (35.1-43.9); Red Blood Count 3.85 M/mm3 (4.6-6.2); White Blood Count 7.7 K/mm3 (4.4-11.0)
[2018-09-28 06:26] LABS: BUN 39 mg/dL (7-18); Creatinine, Serum 1.13 mg/dL (0.70-1.30); EST Glomerular Filtration Rate 67 mL/min (>60); Estimated Creatinine Clearance 46.42 ml/min; Glucose 110 mg/dL (74-106); POSITIVE COUNT NO; POSITIVE DIFFERENTIAL NO; POSITIVE MORPHOLOGY NO
[2018-09-28 06:27] LABS: Anion Gap 8 (5-15); BUN/Creat Ratio 34.5 RATIO (10-20); Calcium,Total 8.4 mg/dL (8.5-10.1); Chloride 108 mmol/L (98-107); Est Glom Filt Rate - Afr Amer 80 mL/min (>60); Potassium 3.8 mmol/L (3.5-5.1); Sodium Level 144 mmol/L (136-145)
[2018-09-28 06:41] LABS: Bedside Glucose 108 mg/dL (70-110)
[2018-09-28 06:58] VITALS: PULSE 90; RESP 18
[2018-09-28] MEDS: predniSONE 10 MG Tablet PO (07:55)
[2018-09-28] MEDS: Tuberculin,Purif.prot.deriv. 50 TU/ML Vial 5 ML ID (10:35)
[2018-09-28 13:08] VITALS: PULSE 97; RESP 18
[2018-09-28 15:21] VITALS: BP 104/61; PULSE 94; RESP 18; TEMP 36.2; O2SAT 94
[2018-09-28] MEDS: Tamsulosin HCl 0.4 MG Capsule PO (16:44)
[2018-09-28 19:38] VITALS: PULSE 94; RESP 18
[2018-09-28] MEDS: Ipratropium/Albuterol Sulfate 3 ML AMPUL.NEB INHALATION (19:38)
[2018-09-28] MEDS: Mirtazapine 15 MG Tablet 7.5 MG PO (20:32)
[2018-09-29 04:21] VITALS: BP 124/67; PULSE 105
[2018-09-29] MEDS: Metoprolol(XL)Succ 50 MG Tablet PO (04:21)
[2018-09-29] MEDS: Pantoprazole Sodium 40 MG Tablet PO (04:21)
[2018-09-29] MEDS: Enoxaparin 30 MG/0.3 ML Syringe SC (04:21)
[2018-09-29] MEDS: Losartan Potassium 50 MG Tablet PO (04:24)
[2018-09-29] MEDS: Menthol/Lanolin/Calamine/Znox 113 GM Tube 1 APPLIC TOPICAL ×2 (04:26→17:28)
[2018-09-29 07:20] LABS: Bedside Glucose 151 mg/dL (70-110)
[2018-09-29] MEDS: predniSONE 10 MG Tablet PO (08:04)
--- NOTE | 2018-09-29 10:00 | NURSING ---
Addendum entered by Larisa Urban Oliver 09/29/18 15:03: pt only ate few bites fries, none of sandwich. Pt assisted to BR to void and then pt layed down to rest in bed. pt laying on rt side. alarm in place. Placed leftovers in fridge to reheat later per pt request. Original Note: Addendum entered by Larisa Urban Oliver 09/29/18 14:35: pt had lunch tray delivered at 1140, speech in with pt, pt ate 25% of that meal. Daughter brought in a sandwich & fries from outside restaurant. pt working on fries at this time. States taste is different than hospital food. Will continue to monitor intake. Original Note: Addendum entered by Larisa Urban Oliver 09/29/18 10:41: PT DEVOURING ALL OF HIS SALAD AND EGG. WILL ASSIST PT WITH MENU TO GET BETTER CHOICES FOR PT Original Note: PT REQUESTING SOMETHING TO EAT, PT DID NOT EAT BRKFST FOOD. NOTIFIED DIETARY DEPT, PT WANTING SALAD W/TONGAN DRSG & BOILED EGG, OJ. PT FINISHING UP IN THERAPY.
[2018-09-29 10:24] VITALS: RESP 18; O2SAT 99
[2018-09-29 14:00] VITALS: PULSE 91; RESP 18; O2SAT 97
[2018-09-29] MEDS: Ipratropium/Albuterol Sulfate 3 ML AMPUL.NEB INHALATION ×2 (14:00→19:12)
[2018-09-29 15:33] VITALS: BP 99/59; PULSE 98; RESP 18; TEMP 36.4; O2SAT 97
[2018-09-29] MEDS: Tamsulosin HCl 0.4 MG Capsule PO (17:28)
[2018-09-29 19:12] VITALS: PULSE 95; RESP 18
[2018-09-29] MEDS: Mirtazapine 15 MG Tablet 7.5 MG PO (20:17)
[2018-09-30] MEDS: Losartan Potassium 50 MG Tablet PO (05:49)
[2018-09-30] MEDS: Polyethylene Glycol 3350 17 GM PACKET PO (05:49)
[2018-09-30] MEDS: Pantoprazole Sodium 40 MG Tablet PO (05:49)
[2018-09-30 05:50] VITALS: BP 103/59; PULSE 100
[2018-09-30] MEDS: Enoxaparin 30 MG/0.3 ML Syringe SC (05:50)
[2018-09-30] MEDS: Metoprolol(XL)Succ 50 MG Tablet PO (05:50)
[2018-09-30] MEDS: Menthol/Lanolin/Calamine/Znox 113 GM Tube 1 APPLIC TOPICAL (05:50)
[2018-09-30 06:40] LABS: Bedside Glucose 179 mg/dL (70-110)
[2018-09-30 06:53] VITALS: PULSE 88; RESP 16; O2SAT 96
[2018-09-30] MEDS: Ipratropium/Albuterol Sulfate 3 ML AMPUL.NEB INHALATION ×2 (06:53→13:05)
--- NOTE | 2018-09-30 07:45 | MDS.RN ---
Information for the mds was obtained from review of the clinical record, interview of resident, staff, and direct observation of resident's care.
[2018-09-30 13:05] VITALS: PULSE 98; RESP 16
[2018-09-30 13:51] LABS: Bedside Glucose 227 mg/dL (70-110)
[2018-09-30 14:17] LABS: Absolute Lymphocyte Count 3.59 X10^3/ul (0.83-4.51); Absolute Neutrophil Count 7.3 X10^3/uL (2.0-7.7); Basophil# 0.04 X10^3/uL; Basophil% 0.3 % (0-1); Eosinophil# 0.04 X10^3/uL; Eosinophils% 0.3 % (0-5); Hematocrit 30.7 % (40-54); Hemoglobin 9.6 g/dl (13.0-16.5); Lymphocyte # 3.59 X10^3/ul (4.0); Lymphocyte % 30.7 % (19-41); Mean Corp Hgb Conc 31.3 g/gl (32-36); Mean Corpuscular Hgb 30.4 pg (27.0-32.0); Mean Corpuscular Volume 97.2 fL (80-94); Mean Platelet Vol. 10.1 fl (6.2-12.0); Monocyte# 0.66 X10^3/uL; Monocyte% 5.6 % (0-10); Neutrophil # 7.33 X10^3/uL (2.7-7.7); Neutrophil % 62.7 % (47-70); Platelet Count 199 K/mm3 (150-450); RBC Distribution Width CV 15.1 % (11.6-14.6); Red Blood Count 3.16 M/mm3 (4.6-6.2); White Blood Count 11.7 K/mm3 (4.4-11.0)
[2018-09-30 14:19] LABS: POSITIVE COUNT NO; POSITIVE DIFFERENTIAL NO; POSITIVE MORPHOLOGY NO
[2018-09-30] MEDS: 0.9% Normal Saline 1,000 ML 999 ML IV (14:26)
[2018-09-30 14:28] LABS: Anion Gap 8 (5-15); BUN 63 mg/dL (7-18); BUN/Creat Ratio 44.4 RATIO (10-20); Calcium,Total 8.2 mg/dL (8.5-10.1); Chloride 112 mmol/L (98-107); Creatinine, Serum 1.42 mg/dL (0.70-1.30); EST Glomerular Filtration Rate 51 mL/min (>60); Est Glom Filt Rate - Afr Amer 62 mL/min (>60); Estimated Creatinine Clearance 35.27 ml/min; Glucose 230 mg/dL (74-106); Potassium 4.5 mmol/L (3.5-5.1); Sodium Level 145 mmol/L (136-145)
--- NOTE | 2018-09-30 14:57 | CHAPLAIN ---
Type of Pastoral Visit ___ Initial Visit ___ Follow-up Visit ___ On-call Visit ___ General Patient Visit ___ Spiritual Assessment ___ Family Conference ___ Bereavement _x__ Rapid Response ___ Code Blue ___ Other (describe below) Pastoral Care Referral From ___ Patient ___ Family ___ Nurse ___ Physician ___ Director Of Guidance ___ Bow Tacker ___ Other (describe below) Sacrament/Intervention ___ Active listening ___ Anointing ___ Presybeterian ___ Bereavement ___ Communion ___ Estephania exploration ___ ___ Life review ___ Prayer ___ Reconciliation ___ Sacrament of Sick ___ Supportive presence ___ Wedding ___ Other (describe below) Pastoral Comments communication with daughter of patient; offer of support;
--- NOTE | 2018-09-30 15:03 | NURSING ---
HUMAN DEVELOPMENT PROFESSOR called for pt collapsing on toilet this shift
[2018-09-30 15:11] VITALS: BP 103/53; PULSE 113; RESP 18; TEMP 36.6; O2SAT 99
--- NOTE | 2018-09-30 15:34 | CASEMGMT ---
Plan of care meeting held. 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 Resident daughter wanting to continue with meeting to be able to establish resident level of functioning prior to ENGINEERING ASSOCIATE. No discharge date set at this time. Resident to continue with further care and treatment on the Transitional Care Unit. Resident plans to discharge to home with spouse at time of discharge. Support given. Aissatou Arriaga, CABLE REPAIRER, SENIOR ECONOMIST
--- NOTE | 2018-09-30 16:23 | NURSING ---
pt sent to ED per Dr. Cruz for declining hemoglobin, black tarry stools and decreasing LoC
--- NOTE | 2018-09-30 20:51 | DCINST_ITS ---
- Discharge Diagnoses Current Active Problems: Current Active and Chronic Problems Acute blood loss anemia (Acute) GI bleed (Acute) gastric mass NABEEL (acute kidney injury) (Acute) Lactic acidosis (Acute) Syncope (Acute) You will use the following diet at home:: No restrictions, Regular Your food should be the consistency of: Regular Your liquids should be the consistency of: Regular/Thin Discharge Activity: Return to Normal Activity, Use Walker Weight Bearing Status: Weight bearing as tolerated Call your doctor if you observe: Fever of 101 or Higher, Inability to urinate, Inability to have a bowel movement, Shortness of breath, Chest pain, Uncontrolled pain Allergies/Adverse Reactions: Allergies Iodinated Contrast- Oral and IV Dye [CONTRASTS] Adverse Reaction (Verified 09/30/18 16:13) Unknown NSAIDS (Non-Steroidal Anti-Inflamma Adverse Reaction (Verified 09/30/18 16:13) GI bleed Medications to take at Discharge Ipratropium/Albuterol Sulfate [Duoneb] 3 ml INHALATION Q2H PRN PRN 09/20/18 Losartan Potassium [Cozaar] 50 mg PO DAILY 09/20/18 Metformin HCl 500 mg PO DAILY 09/20/18 Metoprolol(XL)Succ [Toprol Xl (Beta Radha)] 50 mg PO DAILY 09/20/18 Pantoprazole Sodium [Protonix] 40 mg PO DAILY 09/20/18 Prednisone See Taper PO DAILY 09/20/18 Acetaminophen [Tylenol Extra Strength] 500 mg PO Q6H PRN PRN 09/30/18 Albuterol Aerosols [Ventolin Aerosols] 2.5 mg INHALATION Q2H PRN PRN 09/30/18 Bisacodyl [Dulcolax] 10 mg PO Q6H PRN PRN 09/30/18 Enoxaparin Sodium [Lovenox] 30 mg SQ DAILY 09/30/18 Menthol/Lanolin/Calamine/Znox [Calmoseptine Ointment] 1 applic TOPICAL BID 09/30/18 Mineral Oil/Petrolatum,White [Eucerin] 1 applic TOPICAL DAILY PRN PRN 09/30/18 Mirtazapine [Remeron] 7.5 mg PO QHS 09/30/18 Polyethylene Glycol 3350 [Miralax] 17 gm PO DAILY 09/30/18 Tamsulosin HCl 0.4 mg PO DAILY 09/30/18 Test Results: Test results from this visit will be discussed in further detail at your follow- up appointment, if applicable. Proposed Discharge Date: 09/30/18
--- NOTE | 2018-09-30 20:55 | DS.PCM_ITS ---
Discharge Date and Diagnosis - Problem List Patient Problems: Active and Suspected Problems Acute blood loss anemia (Acute) GI bleed (Acute) gastric mass NABEEL (acute kidney injury) (Acute) Lactic acidosis (Acute) Syncope (Acute) Date of Admission: 09/20/18 Date of Discharge: 09/30/18 - Primary Discharge Diagnosis Active and Suspected Problems Acute blood loss anemia (Acute) GI bleed (Acute) gastric mass NABEEL (acute kidney injury) (Acute) Lactic acidosis (Acute) Syncope (Acute) - Secondary Discharge Diagnosis Chronic Problems Chronic obstructive pulmonary disease (Chronic) Bronchiectasis (Chronic) Diabetes mellitus (Chronic) Hypertension (Chronic) Hyperlipidemia (Chronic) GERD (gastroesophageal reflux disease) (Chronic) Hospital Course and Treatment Imaging Results: Clinical Impression(s) from Imaging Studies Chest X-Ray 09/22/18 02:50 IMPRESSION: Lungs are well expanded. There are bibasilar infiltrates greater on the LEFT. There is a small LEFT pleural effusion. There is NO pneumothorax. There is no demonstrated pleural abnormality. Normal size heart. Electronically Signed: Grupo Riley MD at 7:52 EST , Service support , Labs (Last 48 Hours) 09/29/18 09/30/18 09/30/18 07:03 06:28 13:44 WBC RBC Hgb Hct MCV MCH MCHC RDW RDW Differential Plt Count MPV Immature Gran % (Auto) Neut % (Auto) Lymph % (Auto) Cass % (Auto) Eos % (Auto) Baso % (Auto) Absolute Neuts (auto) Absolute Lymphs (auto) Total Counted Sodium Potassium Chloride Carbon Dioxide Anion Gap BUN Creatinine Estim Creat Clear Calc Est GFR (MDRD) Af Amer Est GFR (MDRD) Non-Af BUN/Creatinine Ratio Glucose Calcium POC Glucose 151 H 179 H 227 H 09/30/18 09/30/18 14:08 14:08 WBC 11.7 H RBC 3.16 L Hgb 9.6 L Hct 30.7 L MCV 97.2 H MCH 30.4 MCHC 31.3 L RDW 15.1 H RDW Differential 51.0 H Plt Count 199 MPV 10.1 Immature Gran % (Auto) 0.400 Neut % (Auto) 62.7 Lymph % (Auto) 30.7 Cass % (Auto) 5.6 Eos % (Auto) 0.3 Baso % (Auto) 0.3 Absolute Neuts (auto) 7.3 Absolute Lymphs (auto) 3.59 Total Counted Not Reportable Sodium 145 Potassium 4.5 Chloride 112 H Carbon Dioxide 25.0 Anion Gap 8 BUN 63 H Creatinine 1.42 H Estim Creat Clear Calc 35.27 Est GFR (MDRD) Af Amer 62 Est GFR (MDRD) Non-Af 51 L BUN/Creatinine Ratio 44.4 H Glucose 230 H Calcium 8.2 L POC Glucose Operations: None Procedures: None Summary of Care Provided: The patient is a 78 year old Male with below past medical history hospitalized for sepsis, secondary to healthcare associated pneumonia, complicated by gastric mass with gastrohepatic lymphadenopathy, but patient declined evaluation, admitted to TCU with debility, here for rehabilitation, strengthening, prior to disposition determination. 09/30/2018 Resident became unresponsive, had large bowel movement of melanotic stool, Hemoglobin trending down. Discharge to [facility] Emergency Department for evaluation, admission to hospital. If gastric cancer confirmed by biopsy, recommend discharge to [facility] with Hospice. Resident spouse unable to care for him at home. Patient Problems: Active and Suspected Problems Acute blood loss anemia (Acute) GI bleed (Acute) gastric mass NABEEL (acute kidney injury) (Acute) Lactic acidosis (Acute) Syncope (Acute) - Physical Exam Vital Signs Temp Pulse Resp BP Pulse Ox 97.8 F 113 H 18 103/53 L 99 09/30/18 15:11 09/30/18 15:11 09/30/18 15:11 09/30/18 15:11 09/30/18 15:11 Oxygen Flow Rate (L/min) 2 Oxygen Delivery Method Nasal Cannula Weight: 59.109 kg Body Mass Index (BMI) 22.3 Intake and Output for Last 24 Hours 09/28/18 09/29/18 09/30/18 23:59 23:59 23:59 Intake Total 360 / 360 600 / 600 360 / 360 Balance 360 / 360 600 / 600 360 / 360 Laboratory Tests Past 24 Hrs 09/30/18 09/30/18 14:08 14:08 WBC 11.7 H RBC 3.16 L Hgb 9.6 L Hct 30.7 L MCV 97.2 H MCH 30.4 MCHC 31.3 L RDW 15.1 H RDW Differential 51.0 H Plt Count 199 MPV 10.1 Immature Gran % (Auto) 0.400 Neut % (Auto) 62.7 Lymph % (Auto) 30.7 Cass % (Auto) 5.6 Eos % (Auto) 0.3 Baso % (Auto) 0.3 Absolute Neuts (auto) 7.3 Absolute Lymphs (auto) 3.59 Total Counted Not Reportable Sodium 145 Potassium 4.5 Chloride 112 H Carbon Dioxide 25.0 Anion Gap 8 BUN 63 H Creatinine 1.42 H Estim Creat Clear Calc 35.27 Est GFR (MDRD) Af Amer 62 Est GFR (MDRD) Non-Af 51 L BUN/Creatinine Ratio 44.4 H Glucose 230 H Calcium 8.2 L POC Glucose 09/30/18 09/30/18 13:44 06:28 POC Glucose 227 H 179 H Discharge Diet: No Restrictions Discharge Activity: Return to Normal Activity, Use Walker Weight Bearing Status: Weight bearing as tolerated Call your doctor if you observe: Fever of 101 or Higher, Inability to urinate, Inability to have a bowel movement, Shortness of breath, Chest pain, Uncontrolled pain Home Medications: Medications to take at Discharge Ipratropium/Albuterol Sulfate [Duoneb] 3 ml INHALATION Q2H PRN PRN 09/20/18 Losartan Potassium [Cozaar] 50 mg PO DAILY 09/20/18 Metformin HCl 500 mg PO DAILY 09/20/18 Metoprolol(XL)Succ [Toprol Xl (Beta Radha)] 50 mg PO DAILY 09/20/18 Pantoprazole Sodium [Protonix] 40 mg PO DAILY 09/20/18 Prednisone See Taper PO DAILY 09/20/18 Acetaminophen [Tylenol Extra Strength] 500 mg PO Q6H PRN PRN 09/30/18 Albuterol Aerosols [Ventolin Aerosols] 2.5 mg INHALATION Q2H PRN PRN 09/30/18 Bisacodyl [Dulcolax] 10 mg PO Q6H PRN PRN 09/30/18 Enoxaparin Sodium [Lovenox] 30 mg SQ DAILY 09/30/18 Menthol/Lanolin/Calamine/Znox [Calmoseptine Ointment] 1 applic TOPICAL BID 09/30/18 Mineral Oil/Petrolatum,White [Eucerin] 1 applic TOPICAL DAILY PRN PRN 09/30/18 Mirtazapine [Remeron] 7.5 mg PO QHS 09/30/18 Polyethylene Glycol 3350 [Miralax] 17 gm PO DAILY 09/30/18 Tamsulosin HCl 0.4 mg PO DAILY 09/30/18 Disposition: Acute care Hospital Minutes spent on discharge:: 30 Patient Condition:: Poor Medical Necessity - Tobacco Use Smoking Status: Former smoker - 30 pack year smoking history. Tobacco Use: Non-smoker Meaningful Use Info Meaningful Use Diagnoses (Choose all that apply): None applicable
== END 2018-09-30 16:23 | disposition short-term general hospital (02) | DRG 947 ==
PROVIDERS: Admitting Provider Family Medicine Geriatric Medicine; Referring Provider Family Medicine Geriatric Medicine; Visit Provider Family Medicine Geriatric Medicine
DX: R53.81 Other malaise (principal); J18.9 Pneumonia, unspecified organism; J44.0 Chronic obstructive pulmonary disease with (acute) lower respiratory infection; N39.0 Urinary tract infection, site not specified; D62 Acute posthemorrhagic anemia; K92.2 Gastrointestinal hemorrhage, unspecified; K31.89 Other diseases of stomach and duodenum; I10 Essential (primary) hypertension; E11.9 Type 2 diabetes mellitus without complications; E78.5 Hyperlipidemia, unspecified; R59.0 Localized enlarged lymph nodes; K21.9 Gastro-esophageal reflux disease without esophagitis; R29.6 Repeated falls; Z87.891 Personal history of nicotine dependence; B95.2 Enterococcus as the cause of diseases classified elsewhere; Z66 Do not resuscitate
CPT/HCPCS: 36415; 71046; 80048; 82962; 83036; 85025; 92507; 92526; 92610; 94640; 94667; 94668; 97110; 97116; 97162; 97165; 97530; 97535; J7030; J7050; A4216

== ENCOUNTER 2018-09-30 16:09 | Inpatient (IN) | payer MEDICARE, OTHER, SELFPAY ==
[2018-09-20 18:15] VITALS: BMI 22.3
[2018-09-30] VITALS (20 sets, daily range): BP systolic 81–136; BP diastolic 57–67; PULSE 101–119; RESP 16–26; TEMP 36.2–36.9; O2SAT 97–100; BMI 22.9; BMI 23.5
--- NOTE | 2018-09-30 16:17 | EKG12_ITS ---
Test Reason : Blood Pressure : / mmHG Vent. Rate : 103 BPM Atrial Rate : 103 BPM P-R Int : 148 ms QRS Dur : 060 ms QT Int : 330 ms P-R-T Axes : 065 -26 053 degrees QTc Int : 432 ms Sinus tachycardia Possible Anterior infarct , age undetermined Abnormal ECG Confirmed by JASPER ABARCA, MEHNAZ ([id number]), makeup editor BILL CORRIGAN ([id number]) on 10/05/2018 4:55:48 PM Referred By: MARK Confirmed By:MEHNAZ HUTCHINSON MD
--- NOTE | 2018-09-30 16:28 | ED.DCSUM_ITS ---
- ER Visit Summary Date of Service: 09/30/18 Chief Complaint: Black stool History of Present Illness: The patient is a 78 M with multiple medical problems who was recently admitted at [facility] for healthcare acquired pneumonia who was admitted to TCU in August. He presents because of black stool and drop in hemoglobin. She reports not feeling well. He has no other complaints. He denied cardiac or respiratory symptoms. He denies abdominal pain or vomiting. He denies decreased urine output. He does complain of weakness.. Physical Examination: Vital signs noted and remarkable for a blood pressure of 98/50 and heart rate of 104. He appears pale. Conjunctive is pale. Tongue and buccal mucosa are dry. TMs normal. Sclerae anicteric. Lungs are clear with slightly diminished breath sounds. Heart is rapid and regular. Abdomen is soft nontender. Stool sample brought from TCU is black sticky and has odor of blood. He moves all extremities. Hemoglobin on September 28 was 11.4 and hemoglobin today is 9.6. BUN is increased to 63. Reviewing TCU admission note indicates patient had a gastric mass he declined EGD/biopsy. Oncology was consulted however since there is no tissue biopsy they are unable to provide any assistance or care. Test Results: Coags are normal. Lactate is elevated at 3.1. Emergency Department Course and Treatment: Coags were obtained and patient was typed and screened. Lactate was obtained since he is tachycardic and hyper hypotensive. Will need to discuss CODE STATUS and this will determine proper unit placement. Treatment Plan: 500 cc bolus of normal saline, type and screen and consult for EGD to determine site of bleeding. Dr. Shanna Vera spoke with her father. A medical orders for life-sustaining treatment was completed. He has no CPR, no intubation, no defibrillation and no cardioversion. If he has a respiratory arrest during EGD or colonoscopy he is requesting resuscitation. Placement of central line is acceptable. Disposition: Admit ICU Impression: 1. Hemorrhagic shock secondary to GI bleed 2. Acute anemia secondary to GI bleed 3. 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 It may contain incorrect words, spelling, and punctuation that were not noted in review of the chart prior to signing ED Disposition - Plan for ED Patient: Chief Complaint: Weakness
--- NOTE | 2018-09-30 16:34 | NURSING ---
NO OLD EKGS
[2018-09-30 16:55] LABS: International Normalized Ratio 1.2; Prothrombin Time (Protime)PT. 15.1 SECONDS (11.7-14.9)
[2018-09-30 16:56] LABS: Partial Thromboplast Time 30.9 Seconds (24.1-36.2)
[2018-09-30 17:03] LABS: Lactic Acid 3.1 mmol/L (0.4-2.0)
--- NOTE | 2018-09-30 17:05 | NURSING ---
HOSPITALIST PAGED DR RAZO PAGED
--- NOTE | 2018-09-30 17:06 | ED.RN ---
dr. denson aware of lactic 3.1
--- NOTE | 2018-09-30 17:09 | NURSING ---
DR RAZO CALLED DR ROSE FOR DR PAULA
--- NOTE | 2018-09-30 17:13 | NURSING ---
DR ROSE IN ER
--- NOTE | 2018-09-30 17:22 | NURSING ---
ICU ROSE HEMORRHAGIC SHOCK, ACUTE ANEMIA SECONDARY TO GI BLEED
--- NOTE | 2018-09-30 17:33 | NURSING ---
DR RAZO IN ER
--- NOTE | 2018-09-30 17:33 | NURSING ---
ICU 4
--- NOTE | 2018-09-30 17:46 | HP.PCM_ITS ---
Problem List (1) Acute blood loss anemia Status: Acute (2) GI bleed Status: Acute (3) NABEEL (acute kidney injury) Status: Acute (4) Lactic acidosis Status: Acute (5) Syncope Status: Acute History of Present Illness Date of Admission: 09/30/18 Chief Complaint: melena The patient is a 78 year old M who has been in the transitional care unit since September 20. Previously, patient was at [facility] with pneumonia. Patient has CT imaging of his chest but cut the upper part of his abdomen that showed a mass in his stomach. His recommend that he undergo an EGD, however the patient declined given his tenuous respiratory status at that time. Is no note of any bleeding at that time. Patient was transferred over to the transitional care unit here [facility]. Today, patient had a syncopal episode when he was on the commode. Patient eventually did came to and did receive IV fluids but was noted to have melena and sent to the emergency room. In the emergency room, patient received IV fluids, he had a lactic acid of 3.1. General surgery, with Dr. Vargas, was contacted and the plan is for an EGD on the at around noon. Discussed with Dr. Vera, the patient's daughter, who stated that her mother told her and the patient has been having some bleeding prior to this as well. Patient does have a remote history of EGD that did require cauterization in the past. [] Past Medical History Past Medical History (Chronic Problems): Chronic Problems Chronic obstructive pulmonary disease (Chronic) Bronchiectasis (Chronic) Diabetes mellitus (Chronic) Hypertension (Chronic) Hyperlipidemia (Chronic) GERD (gastroesophageal reflux disease) (Chronic) Allergies Iodinated Contrast- Oral and IV Dye [CONTRASTS] Adverse Reaction (Verified 09/30/18 16:13) Unknown NSAIDS (Non-Steroidal Anti-Inflamma Adverse Reaction (Verified 09/30/18 16:13) GI bleed Home Medications: Ambulatory Orders Medication Instructions Recorded Ipratropium/Albuterol Sulfate 3 ml INHALATION Q2H PRN PRN 09/20/18 [Duoneb] Losartan Potassium [Cozaar] 75 mg PO DAILY 09/20/18 Metformin HCl 500 mg PO DAILY 09/20/18 Metoprolol(XL)Succ [Toprol Xl 50 mg PO DAILY 09/20/18 (Beta Radha)] Pantoprazole Sodium [Protonix] 40 mg PO DAILY 09/20/18 Prednisone 10 mg PO DAILY 09/20/18 Mirtazapine [Remeron] 15 mg PO QHS 09/30/18 Polyethylene Glycol 3350 [Miralax] 17 gm PO DAILY 09/30/18 Tamsulosin HCl 0.4 mg PO DAILY 09/30/18 Surgical History: no surgical history, - - Left heart cath, EGD with cauterization gastric ulcer. Psychiatric History: No pertinent psych hx Smoking Status: Former smoker Tobacco Use: Non-smoker - *Family History Maternal History Items: No pertinent history Paternal History Items: No pertinent history Review of Systems Constitutional: Reports: Malaise. Denies: Anorexia, Chills, Fever, Weakness Eyes: Denies: Blurred vision, Double vision HEENT: Reports: Difficulty Hearing Cardiovascular: Denies: Chest Pain, Palpitations Respiratory: Denies: Cough, Shortness of breath at rest, Sputum production Gastrointestinal: Reports: Abdominal Pain, Nausea, Melena. Denies: Hematochezia Genitourinary: Denies: Dysuria Musculoskeletal: Denies: Joint Pain, Joint Tenderness Skin: Denies: Rash, Wounds Neurological: Reports: - - Syncope today. Denies: Focal weakness, Numbness, Tingling Psychiatric: Denies: Anxiety, Depression Hematologic/ Lymphatic: Reports: Easy Bleeding Comment: A 10 point review of systems were negative except as mentioned in the history of present illness and the other review of systems. VTE Information - Inpt Only VTE Present on Admission: No VTE Mechan Device Prophylaxis: SCD's VTE Pharm Prophylaxis ordered?: No Reason prophylaxis not ordered:: Medical Contraindication Patient Problems: Active and Suspected Problems Debility (Acute) Multiple falls (Acute) Healthcare-associated pneumonia (Acute) Urinary tract infection (Acute) Gastric mass (Acute) Intra-abdominal lymphadenopathy (Acute) Acute blood loss anemia (Acute) GI bleed (Acute) NABEEL (acute kidney injury) (Acute) Lactic acidosis (Acute) Syncope (Acute) - Physical Exam General: Alert, Cooperative, No apparent distress, - - Heart of hearing. Afebrile. Pale complexion. HEENT: Atraumatic, Normocephalic Oral: Moist Mucosa, No Gingival or Mucosal Lesions/ Ulcerations Neck: No Nodes, Thyroid Normal Size and Texture Lungs: Clear to auscultation, Normal air movement, No rhonchi, No wheeze Cardiovascular: Regular rate, Regular Rhythm, Normal S1, Normal S2, No murmurs Abdomen: Bowel Sounds Present, Soft, Non Tender, Non-Distended, No Hepato- splenomegaly Extremities: No edema, No Calf Tenderness Skin: No rashes, No breakdown Musculoskeletal: No Tenderness to Palpation of Joints or Extremities, No Muscle Wasting Neurological: Motor Exam 5/5 strength throughout, - - No clonus Psych/Mental Status: Appropriate, Flat Affect Vital Signs Temp Pulse Resp BP Pulse Ox 36.9 C 104 H 16 98/58 L 100 09/30/18 16:11 09/30/18 16:11 09/30/18 16:11 09/30/18 16:11 09/30/18 16:11 Oxygen Flow Rate (L/min) 2 Oxygen Delivery Method Nasal Cannula Weight: 66.4 kg Body Mass Index (BMI) 22.9 Laboratory Tests Past 24 Hrs 09/30/18 09/30/18 09/30/18 16:20 16:20 16:20 PT 15.1 H INR 1.2 APTT 30.9 Lactic Acid 3.1 H Blood Type Pending Antibody Screen Pending Assessment/Plan All Active Problems Debility (Acute) Multiple falls (Acute) Healthcare-associated pneumonia (Acute) Urinary tract infection (Acute) Gastric mass (Acute) Intra-abdominal lymphadenopathy (Acute) Acute blood loss anemia (Acute) GI bleed (Acute) NABEEL (acute kidney injury) (Acute) Lactic acidosis (Acute) Syncope (Acute) 1. Acute blood loss anemia Hemoglobin in 1 day is gone from 11.4-9.6. Given the patient's current appearance, I think that 9.6 is an over estimation of his actual hemoglobin. Patient be transfused 1 unit of packed red blood cells and will cycle his H&H every 6 hours Secondary to GI bleed 2. GI bleed Source not yet identified, but could be related with PUD or this gastric mass, which I think is most likely culprit Patient be started on IV Protonix Plan is for an EGD on the roughly around noon. Discussed with Dr. Vargas 3. Acute kidney injury Likely prerenal Creatinine went from 1.13-1.42 today IV fluids and monitor 4. Syncope Occurred earlier today Likely vasovagal due to the above issues Continue IVF 5. Diabetes mellitus type II Hold metformin as patient is n.p.o. and may be complicating the patient's lactic acidosis Sliding scale insulin every 6 hours for now while he is n.p.o. 6. Lactic acidosis Secondary to acute blood loss anemia, renal failure and also metformin Currently, hemodynamically stable, therefore will qualify this is a hemorrhagic cyst shock at this time 7. DVT prophylaxis with SCDs. Chemical prophylaxis contraindicated in light of the acute hemorrhage 8. Advanced care planning: Discussed with Dr. Vera, patient is DNR Comfort Care arrest, however, for the EGD that will be rescinded but to be resumed afterwards. Code Visit Inpatient E&M: 49402 Init Hosp L3
--- NOTE | 2018-09-30 17:54 | PCM.CONS.GEN ---
Problem List (1) Gastric mass Status: Acute (2) GI bleed Status: Acute Qualifiers: Gastritis type: other gastritis Comment: gastric mass Reason for Consult Date of Consultation: 09/30/18 History of Present Illness: The patient is a 78 year old M who has been in the transitional care unit since September 20. Previously, patient was at [facility] with pneumonia. Patient has CT imaging of his chest but cut the upper part of his abdomen that showed a mass in his stomach. His recommend that he undergo an EGD, however the patient declined given his tenuous respiratory status at that time. Is no note of any bleeding at that time. Patient was transferred over to the transitional care unit here [facility]. Today, patient had a syncopal episode when he was on the commode. Patient eventually did came to and did receive IV fluids but was noted to have melena and sent to the emergency room. In the emergency room, patient received IV fluids, he had a lactic acid of 3.1. General surgery, with Dr. Vargas, was contacted and the plan is for an EGD on the at around noon. Discussed with Dr. Vera, the patient's daughter, who stated that her mother told her and the patient has been having some bleeding prior to this as well. Patient does have a remote history of EGD that did require cauterization in the past. This was done secondary to NSAID induced possible gastroduodenal bleeding. At the present time I believe the patient does have some hypovolemic shock he is tachycardic and slightly hypotensive. He is actively receiving IV bolus in the emergency department and more than likely will need to have several blood transfusions tonight. Past Medical History Past Medical History (Chronic Problems): Chronic Problems Chronic obstructive pulmonary disease (Chronic) Bronchiectasis (Chronic) Diabetes mellitus (Chronic) Hypertension (Chronic) Hyperlipidemia (Chronic) GERD (gastroesophageal reflux disease) (Chronic) Allergies Iodinated Contrast- Oral and IV Dye [CONTRASTS] Adverse Reaction (Verified 09/30/18 16:13) Unknown NSAIDS (Non-Steroidal Anti-Inflamma Adverse Reaction (Verified 09/30/18 16:13) GI bleed Home Medications: Ambulatory Orders Medication Instructions Recorded Ipratropium/Albuterol Sulfate 3 ml INHALATION Q2H PRN PRN 09/20/18 [Duoneb] Losartan Potassium [Cozaar] 50 mg PO DAILY 09/20/18 Metformin HCl 500 mg PO DAILY 09/20/18 Metoprolol(XL)Succ [Toprol Xl 50 mg PO DAILY 09/20/18 (Beta Radha)] Pantoprazole Sodium [Protonix] 40 mg PO DAILY 09/20/18 Prednisone 10 mg PO DAILY 09/20/18 Acetaminophen [Tylenol Extra 500 mg PO Q6H PRN PRN 09/30/18 Strength] Albuterol Aerosols [Ventolin 2.5 mg INHALATION Q2H PRN PRN 09/30/18 Aerosols] Bisacodyl [Dulcolax] 10 mg PO Q6H PRN PRN 09/30/18 Enoxaparin Sodium [Lovenox] 30 mg SQ DAILY 09/30/18 Menthol/Lanolin/Calamine/Znox 1 applic TOPICAL BID 09/30/18 [Calmoseptine Ointment] Mineral Oil/Petrolatum,White 1 applic TOPICAL DAILY PRN PRN 09/30/18 [Eucerin] Mirtazapine [Remeron] 15 mg PO QHS 09/30/18 Polyethylene Glycol 3350 [Miralax] 17 gm PO DAILY 09/30/18 Tamsulosin HCl 0.4 mg PO DAILY 09/30/18 Surgical History: - - Left heart cath, EGD with cauterization gastric ulcer. Psychiatric History: No pertinent psych hx Smoking Status: Former smoker Tobacco Use: Non-smoker - *Family History Maternal History Items: No pertinent history Paternal History Items: No pertinent history Review of Systems Constitutional: Reports: Anorexia, Malaise, Weight Change, Fatigue. Denies: Chills, Fever Cardiovascular: Denies: Chest Pain, Chest Pressure, Chest Tightness, Palpitations Respiratory: Denies: Cough, Hemoptysis, Shortness of breath at rest, Shortness of breath upon exertion, Wheezing Gastrointestinal: Reports: Melena. Denies: Abdominal Pain, Constipation, Diarrhea, Hematemesis, Nausea, Vomiting Genitourinary: Denies: Dysuria, Frequency, Hematuria, Urgency Musculoskeletal: Denies: Joint Pain Skin: Denies: Lesions, Rash, Wounds Hematologic/ Lymphatic: Reports: Anemia. Denies: Adenopathy, Easy Bruising, Easy Bleeding Patient Problems: Active and Suspected Problems Debility (Acute) Multiple falls (Acute) Healthcare-associated pneumonia (Acute) Urinary tract infection (Acute) Gastric mass (Acute) Intra-abdominal lymphadenopathy (Acute) Acute blood loss anemia (Acute) GI bleed (Acute) gastric mass NABEEL (acute kidney injury) (Acute) Lactic acidosis (Acute) Syncope (Acute) - Physical Exam General: Alert, Cooperative, No apparent distress Oral: Dry Mucosa Neck: Supple, No JVD, Negative Carotid Bruits, No Nodes Lungs: Clear to auscultation Cardiovascular: Regular rate, Regular Rhythm, No murmurs Abdomen: Bowel Sounds Present, Soft, Non Tender, Non-Distended Skin: No rashes, No breakdown Psych/Mental Status: Normal Affect, Appropriate Vital Signs Temp Pulse Resp BP Pulse Ox 98.4 F 104 H 16 98/58 L 100 09/30/18 16:11 09/30/18 16:11 09/30/18 16:11 09/30/18 16:11 09/30/18 16:11 Oxygen Flow Rate (L/min) 2 Oxygen Delivery Method Nasal Cannula Weight: 146 lb 6.191 oz Body Mass Index (BMI) 22.9 Laboratory Tests Past 24 Hrs 09/30/18 09/30/18 09/30/18 16:20 16:20 16:20 PT 15.1 H INR 1.2 APTT 30.9 Lactic Acid 3.1 H Blood Type O POSITIVE Antibody Screen NEGATIVE Assessment/Plan All Active Problems Debility (Acute) Multiple falls (Acute) Healthcare-associated pneumonia (Acute) Urinary tract infection (Acute) Gastric mass (Acute) Intra-abdominal lymphadenopathy (Acute) Acute blood loss anemia (Acute) GI bleed (Acute) NABEEL (acute kidney injury) (Acute) Lactic acidosis (Acute) Syncope (Acute) I believe the bleeding source is most likely going to be this gastric mass. At the present time with his hypovolemic shock I believe it is appropriate to admit him hydrate him and probably give him several units of blood to see if we can make him normotensive. I will plan on doing an upper endoscopy on him around noon or 1:00 tomorrow afternoon. It is obviously concerning to me that his lactic acidosis is at 3.1. Unfortunately I think that he has a significant mortality risk above 30% and encroaching possibly 50% with this admission. I have discussed this extensively with the patient as well as the patient's daughter (Dr. Vera). If the patient is in the ICU the my plan will be to do the scope in the ICU tomorrow. If he is on the floor he obviously will be brought down to the endoscopy unit. Hopefully we will have success using the argon beam bisque kiln placer with this mass.
[2018-09-30 19:26] LABS: Lactic Acid 2.4 mmol/L (0.4-2.0)
[2018-09-30 20:29] LABS: Reflex Lactate? Y
[2018-09-30 21:35] LABS: Allen Test POS; Base Excess -4 mmol/L (-2 to +2); Bicarbonate 20.7 mmol/L (22-26); Blood Gas Specimen Type ART; O2 Delivery Device Nasal Can; PO2 119 mmHG (75-100); SITE R Radial; SO2 99 % (95-99); Time Given 2140; Total Carbon Dioxide 22 mmol/L; pCO2 30.9 mmHg (35-45); pH 7.43 (7.35-7.45)
--- NOTE | 2018-09-30 21:51 | NURSING ---
Second unit pRBCs being infused via rapid infuser initiated at 6326
[2018-09-30 21:55] LABS: Bedside Glucose 160 mg/dL (70-110)
--- NOTE | 2018-09-30 22:19 | NURSING ---
Consent obtained by phone from Daughter Kyle Vera for EGD, Central line and Arterial line placements. Daughter and Patient are both agreeable to these procedures at this time.
--- NOTE | 2018-09-30 22:22 | NURSING ---
Vital signs documented in TAR by Winston Ford RN.
--- NOTE | 2018-09-30 22:30 | NURSING ---
Dr. Vargas bedside preparing for central line insertion. Time out performed between Dr. Vargas and this RN pt and procedure verified. Rt subclavian CVC placed at 2243. CXR ordered.
[2018-09-30 22:54] LABS: Reflex Lactate? Y
--- NOTE | 2018-09-30 23:00 | RAD_ITS ---
STUDY: X-RAY CHEST REASON FOR EXAM: Male, 78 years old. Central line placement. TECHNIQUE: Single frontal view of the chest. COMPARISON: September 22, 2018 FINDINGS: There is a persistent left pleural effusion. There is a persistent left basilar patchy opacity. There is a possibility of lung markings within the upper lungs may be secondary to underlying emphysema. There is a new right central line in place terminating within the expected region of the superior vena cava. Normal size heart. Normal mediastinum and yoselyn. Normal visualized pulmonary arteries. Normal visualized aortic arch and descending thoracic aorta. There are diffuse degenerative changes of the visualized thoracic spine. Normal visualized ribs, clavicles, and shoulders. There is no demonstrated abnormality of the visualized soft tissue structures of the upper abdomen. RAD/CXR for Line Placement IMPRESSION: Right central venous line in a grossly satisfactory position. Left pleural effusion, cannot exclude associated left basilar atelectasis and/or pneumonia. Persistent right basilar opacity may be secondary to underlying atelectasis and/or pneumonia. Electronically Signed: Herminia Daley MD at 23:19 EST Tel , Service support ,
--- NOTE | 2018-09-30 23:16 | NURSING ---
Dr. Vargas at bedside preparing for Arterial line insertion, time out performed and pt and procedure verified. Right radial arterial line placed at [id number]
[2018-10-01] VITALS (42 sets, daily range): BP systolic 103–205; BP diastolic 46–79; PULSE 79–107; RESP 15–30; TEMP 36.3–36.7; O2SAT 94–100
--- NOTE | 2018-10-01 | GASB_PTH ---
PATIENT: LAURIE LEBLANC LOC: [facility] U#:[id number] AGE/SX: 78/M ROOM: [facility] RE09/30/[address]: Dr. David Kim DO : 1940 BED: 1 DIS: 10/04/2018 SPEC #: [id number] RECD: 10/01/18 09:00 STATUS: CHELO REVarun #: [id number] LUCIA: 10/01/18 00:[address]: Rusty Vargas DEPT: SURGICAL PATHOLOGY RECD BY: Timmy Juarez ENTERED: 10/01/18 09:01 SP TYPE: Gastric Bx OTHR DR: MD Dr. Rusty Colmenares MD Dr. Eric Jopperi, DO Dr. Ghasem E Ashelfah, MD No Primary Care Phys Tissues: Gastric mucous membrane Procedures: Special Stain Group II Mucicarmine Stain (control) Surgery Specimen Level IV Alcian Blue/PAS (control) Comments: @ Ordering doctor for SUIV edited from to @ debo CHILEL at 10/01/18 152 @ Submitting doctor edited from to DR.DPEABO Cárdenas by GETACHEW at 10/01/18 1521 HEADER OPERATION: [place] DIAGNOSIS: GI bleed TISSUE SUBMITTED: Biopsy of gastric mass MICROSCOPIC DIAGNOSIS Gastric mass, biopsy: High grade neuroendocrine carcinoma. See Comment. AM:[email or web address] 10/05/18 COMMENT Immunohistochemistry ([id number]) supports the above diagnosis. No microsatellite instability noted. The tumor cells show a high-proliferation index (Ki67 staining in the tumor cells is greater than 90%). Mitotic figures vary from 4 to 7 per high power field. The tumor cells are medium to large in size and contain prominent nucleoli. Focal single cell necrosis is noted. The tumor appears to be present in a fractured, lobulated mass. Single infiltrative tumor cells are not identified. No obvious vascular invasion is seen. Mucin and Alcian blue/PAS stains with matched controls are negative. Case has been reviewed in consultation with Dr. Hendrickson who concurs with the above diagnosis. IDC:[email or web address] MICROSCOPIC DESCRIPTION Slides are reviewed. GROSS DESCRIPTION Received in fixative is one container labeled with the patient's name and designated gastric mass biopsy. The specimen consists of multiple irregular fragments of light cuenca soft tissue that in aggregate measure 0.6 x 0.6 x 0.1 cm. The specimen is totally submitted in one cassette. / AM:jessica 10/01/18 TC:0 [facility]: 25760, 70956 x2 ADDENDUM ADDENDUM ADDENDUM ADDENDUM ADDENDUM 10/07/2018 13:50 ADDENDUM 10/07/2018 13:50 ADDENDUM 10/07/2018 13:50 ADDENDUM 10/07/2018 13:50 ADDENDUM 10/07/2018 13:50 This case was reviewed and diagnosis discussed with Dr. Vargas on 10/05/[address] Hendrickson. This case was reviewed and diagnosis discussed with Dr. Ling on 10/06/[address] Terry.
--- NOTE | 2018-10-01 | IMM_PTH ---
PATIENT: LAURIE LEBLANC LOC: [facility] U#:[id number] AGE/SX: 78/M ROOM: [facility] RE09/30/[address]: Dr. David Kim, : 1940 BED: 1 DIS: 10/04/2018 SPEC #: [id number] RECD: 10/04/18 10:27 STATUS: CHELO REQ #: [id number] LUCIA: 10/01/18 00:[address]: Rusty Vargas DEPT: IMMUNOHISTOCHEMISTRY RECD BY: Lorena Grider ENTERED: 10/04/18 10:30 SP TYPE: IMMUNO OTHR DR: MD Dr. Elvis Colmenares, DO Dr. David Kim, DO No Primary Care Phys Tissues: Stomach, NOS Procedures: Synapto (add) RCC (add) CK8 (initial) MSH2 (add) MLH-1 (add) MSH6 (add) Anti-PMS2 (add) NAPSIN A (add) CD56 (add) CHROMO (add) CK20 (add) CK7 (add) LINDA-2 (add) HEP PAR (add) HER2 MARY BETH (add) KI-67 (add) P53 (add) TTF1 (add) H.PYLORI (add) CDX2 (add) NSE (add) Comments: @ Ordering doctor for NSE. edited from to @ by GETACHEW at 10/04/18 1030 @ Ordering doctor for SYN. edited from to @ by GETACHEW at 10/04/18 1030 @ Ordering doctor for RCC. edited from to DR.DPEABO Cárdenas by GETACHEW at 10/04/18 1030 @ Ordering doctor for CK8 edited from to @ by RGOOD at 10/04/18 1030 @ Ordering doctor for MSH2. edited from to DR.DPEABO Cárdenas by GETACHEW at 10/04/18 1030 @ Ordering doctor for MLH1. edited from to DR.DPEABO Cárdenas by MAYTEOD at 10/04/18 1030 @ Ordering doctor for MSH6. edited from to DR.DPEABO Cárdenas by GETACHEW at 10/04/18 1030 @ Ordering doctor for PMS2. edited from to DR.DPEABO Cárdenas by MAYTEOD at 10/04/18 1030 @ Ordering doctor for NAP. edited from to DR.DPEABO Cárdenas by GETACHEW at 10/04/18 1030 @ Ordering doctor for CD56. edited from to DR.DPEABO Cárdenas by GETACHEW at 10/04/18 1030 @ Ordering doctor for CHROMO. edited from to DR.DPEABO Cárdenas by GETACHEW at 10/04/18 1030 @ Ordering doctor for CK20. edited from to DR.DPEABO Cárdenas by GETACHEW at 10/04/18 1030 @ Ordering doctor for CK7. edited from to DR.DPEABO Cárdenas by GETACHEW at 10/04/18 1030 @ Ordering doctor for LINDA-2. edited from to DR.DPEABO Cárdenas by GETACHEW at 10/04/18 1030 @ Ordering doctor for HEPPAR. edited from to DR.DPEABO Cárdenas by GETACHEW at 10/04/18 1030 @ Ordering doctor for HER2. edited from to DR.DPEABO Cárdenas by GETACHEW at 10/04/18 1030 @ Ordering doctor for KI67. edited from to DR.DPEABO Cárdenas by GETACHEW at 10/04/18 1030 @ Ordering doctor for P53. edited from to DR.DPEABO Cárdenas by GETACHEW at 10/04/18 1030 @ Ordering doctor for TTF1. edited from to DR.DPEABO Cárdenas by GETACHEW at 10/04/18 1030 @ Ordering doctor for H.PYLORI. edited from to DR.DPEABO Cárdenas by GETACHEW at 10/04/18 1030 @ Ordering doctor for CDX2. edited from to DR.DPEABO Cárdenas by GETACHEW at 10/04/18 1030 @ Submitting doctor edited from to DR.DPEABO Cárdenas by GETACHEW at 10/04/18 1030 PHYSICIAN & [address] [address] SPECIMEN INFORMATION: Tissue Source: Biopsy of gastric mass Clinical Info: GI bleed Specimen Number: [id number] CPT code: 46824, 96361 x20 METHODOLOGY: Deparaffinized sections of prefer/formalin-fixed tissue or PAP/DQ stained slides are incubated with monoclonal/polyclonal antibodies/oligonucleotide probes. Localization is made via biotin free immunoperoxidase method. Appropriate controls are performed and reacted as expected. Results on target cell population are indicated in the following table: RESULTS: ANTIBODY / CLONE RESULT CK8 (13fgaaY16) positive CK20 (KS20.8) negative CK7 (OV-TL12/30) negative RCC (PN-15) negative H Pylori (polyclonal) negative CDX2 ([id number]) positive CD56 (123C3.D5) positive NSE Neuron Specific Enolase positive Chromo (LK2H10) positive Synapto (polyclonal) positive TTF-1 (8G7G3/1) negative Napsin A (Rabbit Polyclonal) negative HepPar (OCh1E5) positive MLH1 (M1) positive MSH2 (25D12) positive MSH6 (44) positive PMS2 (WOB3164) positive Ki-67 (30-9) positive, (>90%) P53 (DO-7) positive, ((>50%) LINDA-2 (SP21) positive, focal Her-2neu (CB11) negative These tests were developed and their performance characteristics determined by [facility]. They may not have been cleared or approved by the U.S. Food and Drug Administration. The FDA has determined that such clearance or approval is not necessary. INTERPRETATION: Gastric mass, biopsy: Consistent with high-grade neuroendocrine carcinoma. Result of Microsatellite Instability Study: Negative (no loss of mismatch protein; no microsatellite instability detected). Case has been reviewed in consultation with Dr. Hendrickson who concurs with the above diagnosis. IDC:[id number] AM:jessica 10/05/18
--- NOTE | 2018-10-01 00:45 | OP.PCM_ITS ---
Problem List (1) Gastric mass Status: Acute (2) GI bleed Status: Acute Qualifiers: Gastritis type: other gastritis Comment: gastric mass (3) Hypovolemic shock Status: Acute Report of Operation Date of Procedure: 10/01/18 Pre-Operative Diagnosis: Hypovolemic shock secondary to GI bleed Post-Operative Diagnosis: Same Surgery/Procedure Performed:: 1. Right subclavian triple-lumen catheter. 2. Right radial art line Type of Anesthesia:: Local Description of Procedure: Patient was in the intensive care unit. Bed was placed in the headdown position. The right subclavian neck and chest area was sterilely prepped and d raped in usual fashion. Local was injected in the subclavian area Seldinger's technique was used to gain access to the right subclavian vein. Guidewire was placed through the needle the needle was removed. Skin mina was made in the chest dilator was placed over the guidewire and remove triple lumen catheter was placed over the guidewire and the guidewire was then removed. Butterfly Was applied and a U stitch with 3-0 nylon was used to suture the catheter to the chest. Sterile dressings were applied. Portable chest x-ray was obtained showing no pneumothorax. Right wrist was sterilely prepped and draped in usual fashion local was injected arrow dart kit was used to gain access into the right radial artery it did not thread well and I had to inject more local proximal in the arm and use a another arrow dart kit at this point I was able to gain access to the right radial artery. It was sutured to the skin with a 3-0 nylon. Sterile dressings were applied patient tolerated this procedure well. - Admit VTE Documentation VTE Present on Admission: No VTE Mechan Device Prophylaxis: SCD's VTE Pharm Prophylaxis ordered?: No Reason prophylaxis not ordered:: Treatment Not Indicated
[2018-10-01] MEDS: 0.9% Normal Saline 1,000 ML 100 ML IV ×2 (01:20→04:27)
[2018-10-01 01:37] LABS: Absolute Lymphocyte Count 2.18 X10^3/ul (0.83-4.51); Absolute Neutrophil Count 6.5 X10^3/uL (2.0-7.7); Basophil# 0.02 X10^3/uL; Basophil% 0.2 % (0-1); Eosinophil# 0.01 X10^3/uL; Eosinophils% 0.1 % (0-5); Hematocrit 30.1 % (40-54); Hemoglobin 9.9 g/dl (13.0-16.5); Lymphocyte # 2.18 X10^3/ul (4.0); Lymphocyte % 23.4 % (19-41); Mean Corp Hgb Conc 32.9 g/gl (32-36); Mean Corpuscular Hgb 28.9 pg (27.0-32.0); Mean Corpuscular Volume 87.8 fL (80-94); Mean Platelet Vol. 9.4 fl (6.2-12.0); Monocyte# 0.55 X10^3/uL; Monocyte% 5.9 % (0-10); Neutrophil # 6.51 X10^3/uL (2.7-7.7); Neutrophil % 69.9 % (47-70); Platelet Count 92 K/mm3 (150-450); RBC Distribution Width CV 16.2 % (11.6-14.6); RBC Distribution Width SD 51.2 fl (35.1-43.9); Red Blood Count 3.43 M/mm3 (4.6-6.2); White Blood Count 9.3 K/mm3 (4.4-11.0)
[2018-10-01 01:49] LABS: International Normalized Ratio 1.2; Prothrombin Time (Protime)PT. 15.1 SECONDS (11.7-14.9)
[2018-10-01 01:51] LABS: Anion Gap 8 (5-15); BUN 66 mg/dL (7-18); BUN/Creat Ratio 61.1 RATIO (10-20); Calcium,Total 7.3 mg/dL (8.5-10.1); Chloride 117 mmol/L (98-107); Creatinine, Serum 1.08 mg/dL (0.70-1.30); EST Glomerular Filtration Rate 70 mL/min (>60); Est Glom Filt Rate - Afr Amer 85 mL/min (>60); Estimated Creatinine Clearance 51.85 ml/min; Glucose 174 mg/dL (74-106); Potassium 4.3 mmol/L (3.5-5.1); Sodium Level 149 mmol/L (136-145)
[2018-10-01 01:54] LABS: POSITIVE COUNT NO; POSITIVE DIFFERENTIAL NO; POSITIVE MORPHOLOGY YES
[2018-10-01 01:55] LABS: Differential Indicated SCAN CRITERIA MET
--- NOTE | 2018-10-01 02:10 | NURSING ---
Dr. Vargas at bedside preparing for EGD. Endoscopy RNs, and RAG COLLECTOR in room
[2018-10-01 02:53] LABS: Anisocytosis 1+; Burr Cells RARE; Differential Comment SCANNED; Ovalocyte RARE; Platelet Estimate MOD DEC (ADEQ); Reactive Lymphocyte RARE
--- NOTE | 2018-10-01 03:30 | OP.ENDO_ITS ---
Patient Name: Omar Vera Procedure Date: 10/01/2018 2:15 AM Date of : 1940 Age: 78 Procedure: Upper GI endoscopy Indications: Hematochezia, Active gastrointestinal bleeding Providers: Rusty Vargas MD Medicines: See the Anesthesia note for documentation of the administered medications Patient Profile: This is a 78 year old male. Refer to note in patient chart for documentation of history and physical. Complications: No immediate complications. Procedure: Pre-Anesthesia Assessment: - Prior to the procedure, a History and Physical was performed, and patient medications and allergies were reviewed. The patient's tolerance of previous anesthesia was also reviewed. The risks and benefits of the procedure and the sedation options and risks were discussed with the patient. All questions were answered, and informed consent was obtained. Prior Anticoagulants: The patient has taken no previous anticoagulant or antiplatelet agents. ASA Grade Assessment: IV - A patient with severe systemic disease that is a constant threat to life. After reviewing the risks and benefits, the patient was deemed in satisfactory condition to undergo the procedure. After obtaining informed consent, the endoscope was passed under direct vision. Throughout the procedure, the patient's blood pressure, pulse, and oxygen saturations were monitored continuously. The gastroscope was introduced through the mouth, and advanced to the second part of duodenum. The upper GI endoscopy was accomplished without difficulty. The patient tolerated the procedure well. Scope In: 2:22:40 AM Scope Out: 2:48:28 AM Total Procedure Duration Time 0 hours 25 minutes 48 seconds Findings: The examined esophagus was normal. A large, fungating, non-circumferential mass with no bleeding and no stigmata of recent bleeding was found at the incisura. Biopsies were taken with a cold forceps for histology. After the biopsies I used the argon beam chemical librarian for hemostasis. Once this was done I also injected it with 4 cc of epinephrine. Good hemostasis was achieved. Area was successfully injected with 4 mL of a 1:10,000 solution of epinephrine for hemostasis. One non-bleeding cratered duodenal ulcer with a visible vessel was found in the duodenal bulb. The lesion was 20 mm in largest dimension. Area was successfully injected with 4 mL of a 1:10,000 solution of epinephrine for hemostasis. I made a decision not to use the argon beam chemical librarian nor place a clip on this vessel that was not actively bleeding. I thought injection of epinephrine was enough and was frightened that I could cause more bleeding by doing those 2 other maneuvers. In addition since his platelets had gone down from 190-92 and I was not going to be able to get platelets for 4 hours I thought the most prudent thing to do was only inject the epinephrine.Since I did not see any blood within the stomach nor the duodenum I think the most likely source of his bleeding was from the duodenal ulcer and not the gastric mass. Impression: - Normal esophagus. 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 Biopsied. - One non-bleeding duodenal ulcer with a visible vessel. Injected. Recommendation: - Return patient to ICU for ongoing care. - Clear liquid diet. - Use Protonix (pantoprazole) 80 mg IV daily. - Continue present medications. Procedure Code(s): --- Professional --- 74274, 59, Esophagogastroduodenoscopy, flexible, transoral; with control of bleeding, any method 11521, Esophagogastroduodenoscopy, flexible, transoral; with biopsy, single or multiple Diagnosis Code(s): --- Professional --- C16.8, 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of overlapping sites of stomach K26.4, Chronic or unspecified duodenal ulcer with hemorrhage K92.1, Melena (includes Hematochezia) K92.2, Gastrointestinal hemorrhage, unspecified CPT copyright 2017 [employer]. All rights reserved. The codes documented in this report are preliminary and upon software engineer review may be revised to meet current compliance requirements. MD Rusty Wasserman MD 10/01/2018 3:30:23 AM This report has been signed electronically. Number of Addenda: 0 Note Initiated On: 10/01/2018 2:15 AM
--- NOTE | 2018-10-01 03:37 | PN.SURG_ITS ---
Patient Problems: Active and Suspected Problems Acute blood loss anemia (Acute) GI bleed (Acute) gastric mass NABEEL (acute kidney injury) (Acute) Lactic acidosis (Acute) Syncope (Acute) Hypovolemic shock (Acute) Subjective: At 910 this evening I got a call from the ICU nurse stating that Mr. Vera's heart rate was in the 120s and his blood pressure was 81/57. In his first unit of red blood cells was just now being infused. I immediately came up to see the patient since I was already in the hospital preparing to do an appendectomy. I gave the nurse verbal orders to order 4 units of packed red blood cells and infuse them in a level 1 trauma infuser. Once I completed my appendectomy a came back up to Mr. Vera's room I made a determination that he needed to have a central line as well as an art line which I was able to place. I also ordered 2 units of fresh frozen plasma. I was also informed that he had had several large hematochezia bowel movements. I made a determination that I was going to have to do an urgent EGD on the patient. Anesthesia came up and gave the anesthesia and I performed the upper scope. Patient was noted to have a large gastric mass at the incisura as well as a very large duodenal ulcer with a visible vessel. I injected 4 cc of epinephrine in the duodenum and since it was not actively bleeding and it blanched well with an epinephrine I thought the best course to do was to not attempt to place a clip on it nor use the argon beam hand tool filer on the vessel at this time. His platelets had dropped from 196 to 92 and I was not going to have any platelets available until roughly 5 or 6 in the morning. I thought the risk of causing more bleeding were too high with his platelet count and a precipitous fall. I was able to biopsy the gastric mass which looked malignant and I did use the argon beam hand tool filer and injected epinephrine and achieve good hemostasis from the biopsy sites. Objective: His abdomen is soft and nontender - Physical Exam Vital Signs Temp Pulse Resp BP Pulse Ox 97.5 F L 99 25 H 142/55 H 99 10/01/18 01:17 10/01/18 01:17 10/01/18 01:17 10/01/18 01:17 10/01/18 01:17 Oxygen Flow Rate (L/min) 2 Oxygen Delivery Method Nasal Cannula Weight: 150 lb Body Mass Index (BMI) 23.5 Intake and Output for Last 24 Hours 09/29/18 09/30/18 10/01/18 23:59 23:59 23:59 Intake Total 1600 / 1600 2492 / 2492 Output Total 200 / 200 Balance 1600 / 1600 2292 / 2292 Laboratory Tests Past 24 Hrs 09/30/18 09/30/18 09/30/18 16:20 16:20 16:20 WBC RBC Hgb Hct MCV MCH MCHC RDW RDW Differential Plt Count MPV Immature Gran % (Auto) Neut % (Auto) Lymph % (Auto) [place] % (Auto) Eos % (Auto) Baso % (Auto) Absolute Neuts (auto) Absolute Lymphs (auto) Total Counted Differential Comment Reactive Lymphocytes Platelet Estimate Anisocytosis Ovalocytes Manoj Cells PT 15.1 H INR 1.2 APTT 30.9 Specimen Type Sample Site pH Bicarbonate Actual POC Total CO2 Base Excess O2 Saturation ABG pCO2 ABG pO2 Blas Test O2 Delivery Device Liter Flow Blood Gas Notified Whom Blood Gas Notified Time Sodium Potassium Chloride Carbon Dioxide Anion Gap BUN Creatinine Estim Creat Clear Calc Est GFR (MDRD) Af Amer Est GFR (MDRD) Non-Af BUN/Creatinine Ratio Glucose Lactic Acid 3.1 H Calcium Blood Type O POSITIVE Antibody Screen NEGATIVE Crossmatch 09/30/18 09/30/18 09/30/18 16:20 16:20 18:50 WBC RBC Hgb Hct MCV MCH MCHC RDW RDW Differential Plt Count MPV Immature Gran % (Auto) Neut % (Auto) Lymph % (Auto) [place] % (Auto) Eos % (Auto) Baso % (Auto) Absolute Neuts (auto) Absolute Lymphs (auto) Total Counted Differential Comment Reactive Lymphocytes Platelet Estimate Anisocytosis Ovalocytes Manoj Cells PT INR APTT Specimen Type Sample Site pH Bicarbonate Actual POC Total CO2 Base Excess O2 Saturation ABG pCO2 ABG pO2 Blas Test O2 Delivery Device Liter Flow Blood Gas Notified Whom Blood Gas Notified Time Sodium Potassium Chloride Carbon Dioxide Anion Gap BUN Creatinine Estim Creat Clear Calc Est GFR (MDRD) Af Amer Est GFR (MDRD) Non-Af BUN/Creatinine Ratio Glucose Lactic Acid 2.4 H Calcium Blood Type Antibody Screen Crossmatch See Detail See Detail 09/30/18 10/01/18 10/01/18 21:33 01:25 01:25 WBC 9.3 RBC 3.43 L Hgb 9.9 L Hct 30.1 L MCV 87.8 MCH 28.9 MCHC 32.9 RDW 16.2 H RDW Differential 51.2 H Plt Count 92 L MPV 9.4 Immature Gran % (Auto) 0.500 Neut % (Auto) 69.9 Lymph % (Auto) 23.4 [place] % (Auto) 5.9 Eos % (Auto) 0.1 Baso % (Auto) 0.2 Absolute Neuts (auto) 6.5 Absolute Lymphs (auto) 2.18 Total Counted Not Reportable Differential Comment SCANNED Reactive Lymphocytes RARE Platelet Estimate MOD DEC Anisocytosis 1+ Ovalocytes RARE Manoj Cells RARE PT INR APTT Specimen Type ART Sample Site R Radial pH 7.43 Bicarbonate Actual 20.7 L POC Total CO2 22 Base Excess -4 L O2 Saturation 99 ABG pCO2 30.9 L ABG pO2 119 H Blas Test POS O2 Delivery Device Nasal Can Liter Flow 2.0 Blood Gas Notified Whom ICU MD Blood Gas Notified Time 2140 Sodium 149 H Potassium 4.3 Chloride 117 H Carbon Dioxide 24.0 Anion Gap 8 BUN 66 H Creatinine 1.08 Estim Creat Clear Calc 51.85 Est GFR (MDRD) Af Amer 85 Est GFR (MDRD) Non-Af 70 BUN/Creatinine Ratio 61.1 H Glucose 174 H Lactic Acid Calcium 7.3 L Blood Type Antibody Screen Crossmatch 10/01/18 01:25 WBC RBC Hgb Hct MCV MCH MCHC RDW RDW Differential Plt Count MPV Immature Gran % (Auto) Neut % (Auto) Lymph % (Auto) [place] % (Auto) Eos % (Auto) Baso % (Auto) Absolute Neuts (auto) Absolute Lymphs (auto) Total Counted Differential Comment Reactive Lymphocytes Platelet Estimate Anisocytosis Ovalocytes [place] Cells PT 15.1 H INR 1.2 APTT 32.0 Specimen Type Sample Site pH Bicarbonate Actual POC Total CO2 Base Excess O2 Saturation ABG pCO2 ABG pO2 Blas Test O2 Delivery Device Liter Flow Blood Gas Notified Whom Blood Gas Notified Time Sodium Potassium Chloride Carbon Dioxide Anion Gap BUN Creatinine Estim Creat Clear Calc Est GFR (MDRD) Af Amer Est GFR (MDRD) Non-Af BUN/Creatinine Ratio Glucose Lactic Acid Calcium Blood Type Antibody Screen Crossmatch POC Glucose 09/30/18 20:22 POC Glucose 160 H Medical Necessity - Tobacco Use Smoking Status: Former smoker Tobacco Use: Non-smoker Assessment/Plan All Active Problems Debility (Acute) Multiple falls (Acute) Healthcare-associated pneumonia (Acute) Urinary tract infection (Acute) Gastric mass (Acute) Intra-abdominal lymphadenopathy (Acute) Acute blood loss anemia (Acute) GI bleed (Acute) NABEEL (acute kidney injury) (Acute) Lactic acidosis (Acute) Syncope (Acute) Hypovolemic shock (Acute) This point we are going to repeat another hemoglobin at 6:00 in the morning and he will be receiving his platelets hopefully either at the same time or after the blood draw was performed. I also gave him a bolus of 80 mg of IV Protonix and will be starting a Protonix drip. I fully anticipate him to have further melanotic stools but unless he has a precipitous fall in his blood pressure or becomes tachycardic I do not think I am going to have to do a repeat EGD at this hospitalization. His blood pressure had been increasing in nature and actually was slightly hypertensive and I am going to defer that management to Dr. Meredith. At this point I believe the patient is stable although he has a guarded condition still.
[2018-10-01] MEDS: Labetalol 20 MG/4 ML Vial 10 MG IV ×2 (04:26→09:15)
[2018-10-01] MEDS: CHLORHEXIDINE GLUC 2% CLOTH 1 EACH TOWELETTE TOPICAL (05:47)
[2018-10-01 06:51] LABS: Absolute Lymphocyte Count 3.53 X10^3/ul (0.83-4.51); Absolute Neutrophil Count 9.9 X10^3/uL (2.0-7.7); Basophil# 0.01 X10^3/uL; Basophil% 0.1 % (0-1); Eosinophil# 0.04 X10^3/uL; Eosinophils% 0.3 % (0-5); Hematocrit 31.1 % (40-54); Hemoglobin 10.2 g/dl (13.0-16.5); Lymphocyte # 3.53 X10^3/ul (4.0); Lymphocyte % 24.7 % (19-41); Mean Corp Hgb Conc 32.8 g/gl (32-36); Mean Corpuscular Hgb 28.8 pg (27.0-32.0); Mean Corpuscular Volume 87.9 fL (80-94); Mean Platelet Vol. 10.5 fl (6.2-12.0); Monocyte# 0.75 X10^3/uL; Monocyte% 5.2 % (0-10); Neutrophil # 9.91 X10^3/uL (2.7-7.7); Neutrophil % 69.4 % (47-70); Platelet Count 108 K/mm3 (150-450); RBC Distribution Width CV 16.7 % (11.6-14.6); RBC Distribution Width SD 50.7 fl (35.1-43.9); Red Blood Count 3.54 M/mm3 (4.6-6.2); White Blood Count 14.3 K/mm3 (4.4-11.0)
[2018-10-01 06:59] LABS: POSITIVE COUNT NO; POSITIVE DIFFERENTIAL NO; POSITIVE MORPHOLOGY NO
[2018-10-01] MEDS: Lactated Ringers 1,000 ML 100 ML IV ×2 (07:00→17:25)
[2018-10-01] MEDS: hydrALAZINE 20 MG/ML Vial 10 MG IV (07:02)
--- NOTE | 2018-10-01 07:05 | CON.PCM_ITS ---
Problem List (1) Debility Status: Acute (2) Multiple falls Status: Acute (3) Chronic obstructive pulmonary disease Status: Chronic (4) Bronchiectasis Status: Chronic (5) Gastric mass Status: Acute (6) Diabetes mellitus Status: Chronic (7) Hypertension Status: Chronic (8) Hyperlipidemia Status: Chronic (9) GERD (gastroesophageal reflux disease) Status: Chronic (10) Hypovolemic shock Status: Acute Reason for Consult Date of Consultation: 10/01/18 Reason for Consultation: Hemorrhagic shock History of Present Illness: The patient is a 78 year old M, with past medical history listed below, who presented to [facility] [place] on 09/30/2018 secondary to black stools. Patient reportedly had recently been admitted to [facility] for healthcare acquired pneumonia and was transferred to the TCU in August. Patient started to have black stools with a drop in hemoglobin and complained of not feeling well. Patient did not have any complaints of pain, respiratory distress, nausea or vomiting. On presentation to the ER, patient was noted to have a blood pressure of 98/50 with a heart rate of 104 and appeared pale. Buccal mucosa were reported as dry. Laboratory workup showed a drop in hemoglobin by over 2 g with an elevation of BUN to 63. Patient reportedly had a known gastric mass, but declined EGD and biopsy previously. Patient's lactate was noted to be 3.1, so patient was transferred to the intensive care unit for monitoring. Patient does have a central line and arterial line in place. Overnight, patient had 2 large bloody bowel movements. Surgery was informed and patient eventually had an emergent EGD overnight requiring injection of epinephrine and cautery. Operative note was reviewed. Patient has received a total of 4 units of packed red blood cells, 2 units of FFP and 1 of platelets thus far overnight. Patient has not had any respiratory issues, but hypertension was noted following EGD. Patient has responded well to labetalol. This morning, patient is intermittently confused. Patient continues to deny any pain, but states he does have discomfort from the Fowler. Patient has not had any hematemesis and denies any nausea. No abdominal pain has been noted. Patient has had bowel movement since EGD, but these are reportedly darker and more formed than previous. Patient not cooperative with a more expansive review of systems at this time. Past Medical History Past Medical History (Chronic Problems): Chronic Problems Chronic obstructive pulmonary disease (Chronic) Bronchiectasis (Chronic) Diabetes mellitus (Chronic) Hypertension (Chronic) Hyperlipidemia (Chronic) GERD (gastroesophageal reflux disease) (Chronic) Allergies Iodinated Contrast- Oral and IV Dye [CONTRASTS] Adverse Reaction (Verified 09/30/18 16:13) Unknown NSAIDS (Non-Steroidal Anti-Inflamma Adverse Reaction (Verified 09/30/18 16:13) GI bleed Home Medications: Ambulatory Orders Medication Instructions Recorded Ipratropium/Albuterol Sulfate 3 ml INHALATION Q2H PRN PRN 09/20/18 [Duoneb] Losartan Potassium [Cozaar] 50 mg PO DAILY 09/20/18 Metformin HCl 500 mg PO DAILY 09/20/18 Metoprolol(XL)Succ [Toprol Xl 50 mg PO DAILY 09/20/18 (Beta Radha)] Pantoprazole Sodium [Protonix] 40 mg PO DAILY 09/20/18 Prednisone See Taper PO DAILY 09/20/18 Acetaminophen [Tylenol Extra 500 mg PO Q6H PRN PRN 09/30/18 Strength] Albuterol Aerosols [Ventolin 2.5 mg INHALATION Q2H PRN PRN 09/30/18 Aerosols] Bisacodyl [Dulcolax] 10 mg PO Q6H PRN PRN 09/30/18 Enoxaparin Sodium [Lovenox] 30 mg SQ DAILY 09/30/18 Menthol/Lanolin/Calamine/Znox 1 applic TOPICAL BID 09/30/18 [Calmoseptine Ointment] Mineral Oil/Petrolatum,White 1 applic TOPICAL DAILY PRN PRN 09/30/18 [Eucerin] Mirtazapine [Remeron] 7.5 mg PO QHS 09/30/18 Polyethylene Glycol 3350 [Miralax] 17 gm PO DAILY 09/30/18 Tamsulosin HCl 0.4 mg PO DAILY 09/30/18 Surgical History: - - Left heart cath, EGD with cauterization gastric ulcer. Psychiatric History: No pertinent psych hx Smoking Status: Former smoker Tobacco Use: Non-smoker - *Family History Maternal History Items: No pertinent history Paternal History Items: No pertinent history Review of Systems Comment: See HPI Patient Problems: Active and Suspected Problems Acute blood loss anemia (Acute) GI bleed (Acute) gastric mass NABEEL (acute kidney injury) (Acute) Lactic acidosis (Acute) Syncope (Acute) Hypovolemic shock (Acute) Objective: Chest x-ray shows a right subclavian central line and a minimal left-sided effusion. No echocardiogram is available for review. - Physical Exam General: Alert, Cooperative, No apparent distress, Disoriented, - - No conversational dyspnea. HEENT: Atraumatic, PERRLA, EOMI, Normocephalic, - - No scleral icterus or injection noted. Oral: Moist Mucosa, No Gingival or Mucosal Lesions/ Ulcerations Neck: Supple, No JVD, No Nodes, Trachea Midline Lungs: Clear to auscultation, Normal air movement, No rhonchi, No wheeze, No rales, - - Central line is clean, dry and intact. Cardiovascular: Normal S1, Normal S2, No murmurs, No rub noted, No Gallop, Tachycardic Abdomen: Bowel Sounds Present, Soft, Non Tender, Distended - Slightly Extremities: No clubbing, No cyanosis, No edema, Capillary Refill Less than 3 Seconds Skin: No rashes, No breakdown Musculoskeletal: No Tenderness to Palpation of Joints or Extremities Lymphatic: No Cervical, Supraclavicular, or Inguinal Adenopathy Neurological: Cranial nerves II-XII grossly intact, Neuro grossly intact, Motor Exam 5/5 strength throughout Psych/Mental Status: Agitated, Restless Vital Signs Temp Pulse Resp BP Pulse Ox 36.4 C L 79 18 169/57 H 98 10/01/18 06:55 10/01/18 06:55 10/01/18 06:55 10/01/18 06:55 10/01/18 06:55 Oxygen Flow Rate (L/min) 2 Oxygen Delivery Method Room Air Weight: 62.9 kg Body Mass Index (BMI) 23.5 Intake and Output for Last 24 Hours 09/29/18 09/30/18 10/01/18 23:59 23:59 23:59 Intake Total 1600 / 1600 2841 / 2841 Output Total 1000 / 1000 Balance 1600 / 1600 1841 / 1841 Laboratory Tests Past 24 Hrs 09/30/18 09/30/18 09/30/18 16:20 16:20 16:20 WBC RBC Hgb Hct MCV MCH MCHC RDW RDW Differential Plt Count MPV Immature Gran % (Auto) Neut % (Auto) Lymph % (Auto) Mathews % (Auto) Eos % (Auto) Baso % (Auto) Absolute Neuts (auto) Absolute Lymphs (auto) Total Counted Differential Comment Reactive Lymphocytes Platelet Estimate Anisocytosis Ovalocytes Manoj Cells PT 15.1 H INR 1.2 APTT 30.9 Specimen Type Sample Site pH Bicarbonate Actual POC Total CO2 Base Excess O2 Saturation ABG pCO2 ABG pO2 Blas Test O2 Delivery Device Liter Flow Blood Gas Notified Whom Blood Gas Notified Time Sodium Potassium Chloride Carbon Dioxide Anion Gap BUN Creatinine Estim Creat Clear Calc Est GFR (MDRD) Af Amer Est GFR (MDRD) Non-Af BUN/Creatinine Ratio Glucose Lactic Acid 3.1 H Calcium Blood Type O POSITIVE Antibody Screen NEGATIVE Crossmatch 09/30/18 09/30/18 09/30/18 16:20 16:20 18:50 WBC RBC Hgb Hct MCV MCH MCHC RDW RDW Differential Plt Count MPV Immature Gran % (Auto) Neut % (Auto) Lymph % (Auto) Mathews % (Auto) Eos % (Auto) Baso % (Auto) Absolute Neuts (auto) Absolute Lymphs (auto) Total Counted Differential Comment Reactive Lymphocytes Platelet Estimate Anisocytosis Ovalocytes Manoj Cells PT INR APTT Specimen Type Sample Site pH Bicarbonate Actual POC Total CO2 Base Excess O2 Saturation ABG pCO2 ABG pO2 Blas Test O2 Delivery Device Liter Flow Blood Gas Notified Whom Blood Gas Notified Time Sodium Potassium Chloride Carbon Dioxide Anion Gap BUN Creatinine Estim Creat Clear Calc Est GFR (MDRD) Af Amer Est GFR (MDRD) Non-Af BUN/Creatinine Ratio Glucose Lactic Acid 2.4 H Calcium Blood Type Antibody Screen Crossmatch See Detail See Detail 09/30/18 10/01/18 10/01/18 21:33 01:25 01:25 WBC 9.3 RBC 3.43 L Hgb 9.9 L Hct 30.1 L MCV 87.8 MCH 28.9 MCHC 32.9 RDW 16.2 H RDW Differential 51.2 H Plt Count 92 L MPV 9.4 Immature Gran % (Auto) 0.500 Neut % (Auto) 69.9 Lymph % (Auto) 23.4 Mathews % (Auto) 5.9 Eos % (Auto) 0.1 Baso % (Auto) 0.2 Absolute Neuts (auto) 6.5 Absolute Lymphs (auto) 2.18 Total Counted Not Reportable Differential Comment SCANNED Reactive Lymphocytes RARE Platelet Estimate MOD DEC Anisocytosis 1+ Ovalocytes RARE Manoj Cells RARE PT INR APTT Specimen Type ART Sample Site R Radial pH 7.43 Bicarbonate Actual 20.7 L POC Total CO2 22 Base Excess -4 L O2 Saturation 99 ABG pCO2 30.9 L ABG pO2 119 H Blas Test POS O2 Delivery Device Nasal Can Liter Flow 2.0 Blood Gas Notified Whom ICU Blood Gas Notified Time 2140 Sodium 149 H Potassium 4.3 Chloride 117 H Carbon Dioxide 24.0 Anion Gap 8 BUN 66 H Creatinine 1.08 Estim Creat Clear Calc 51.85 Est GFR (MDRD) Af Amer 85 Est GFR (MDRD) Non-Af 70 BUN/Creatinine Ratio 61.1 H Glucose 174 H Lactic Acid Calcium 7.3 L Blood Type Antibody Screen Crossmatch 10/01/18 10/01/18 01:25 06:00 WBC Pending RBC Pending Hgb Pending Hct Pending MCV Pending MCH Pending MCHC Pending RDW Pending RDW Differential Pending Plt Count Pending MPV Immature Gran % (Auto) Neut % (Auto) Pending Lymph % (Auto) Mathews % (Auto) Eos % (Auto) Baso % (Auto) Absolute Neuts (auto) Pending Absolute Lymphs (auto) Total Counted Pending Differential Comment Reactive Lymphocytes Platelet Estimate Anisocytosis Ovalocytes [employer] Cells PT 15.1 H INR 1.2 APTT 32.0 Specimen Type Sample Site pH Bicarbonate Actual POC Total CO2 Base Excess O2 Saturation ABG pCO2 ABG pO2 Blas Test O2 Delivery Device Liter Flow Blood Gas Notified Whom Blood Gas Notified Time Sodium Potassium Chloride Carbon Dioxide Anion Gap BUN Creatinine Estim Creat Clear Calc Est GFR (MDRD) Af Amer Est GFR (MDRD) Non-Af BUN/Creatinine Ratio Glucose Lactic Acid Calcium Blood Type Antibody Screen Crossmatch POC Glucose 09/30/18 20:22 POC Glucose 160 H Clinical Impression(s) from Imaging Studies Chest X-Ray 09/30/18 23:00 IMPRESSION: Right central venous line in a grossly satisfactory position. Left pleural effusion, cannot exclude associated left basilar atelectasis and/or pneumonia. Persistent right basilar opacity may be secondary to underlying atelectasis and/or pneumonia. Electronically Signed: Herminia Daley MD at 23:19 EST Tel , Service support , Assessment/Plan Active and Suspected Problems Acute blood loss anemia (Acute) GI bleed (Acute) gastric mass NABEEL (acute kidney injury) (Acute) Lactic acidosis (Acute) Syncope (Acute) Hypovolemic shock (Acute) RECOMMENDATIONS: 1. Continue to monitor H&H every 6 2. Labetalol and hydralazine as needed for hypertension 3. Await pathology for prognostication 4. Potential need for repeat endoscopy 5. Monitor in ICU for at least 24 hours given visible vessel 6. Continue PPI drip IMPRESSIONS: 1. Acute blood loss anemia secondary to duodenal ulcer and probable gastric cancer Patient has received 4 units of packed red blood cells, 2 units of FFP and 1 unit of platelets overnight. Patient did have a visible vessel with intervention overnight. Will need to monitor in the intensive care unit for at least 24 hours. Continue with H&H every 6 hours. Transfuse to keep hemoglobin greater than 8 given high likelihood of repeat bleed. Cannot rule out the potential for a repeat endoscopy. Will await pathology results for prognostication. Patient does have reported abdominal adenopathy, so metastatic disease is likely. 2. Hemorrhagic shock secondary to upper GI bleed Patient with elevated lactate and bump in creatinine associated with active GI bleed. Patient has been resuscitated at this time. Hemoglobin is in acceptable range. We will continue to monitor closely. Urine output has remained stable. 3. Hypertensive urgency Patient's blood pressure was elevated following EGD. Unclear if this is secondary to epinephrine versus stability of active blood loss with endogenous endorphins. Patient has responded well to labetalol therapy. We will continue to keep blood pressures less than 160. If patient starts bleeding, this may be tightened further. 4. Recent syncope Clinical suspicion for a vasovagal episode associated with active upper GI bleed. We will continue to monitor. No focal neurologic deficits appreciated at this time. 5. Diabetes mellitus type 2/acute kidney injury/lactic acidosis/advanced age/hypernatremia/hyperchloremia Complicates care, management, recovery and prognosis. Patient has received significant volume resuscitation with normal saline and this likely accounts for the hypernatremia and hyperchloremia. Will transition over to lactated Ringer's Code Visit Inpatient E&M: 04300 Init Hosp L3
[2018-10-01 08:55] LABS: Bedside Glucose 110 mg/dL (70-110)
--- NOTE | 2018-10-01 09:32 | PCM.PROGNOTE ---
Patient Problems: Active and Suspected Problems Acute blood loss anemia (Acute) GI bleed (Acute) gastric mass NABEEL (acute kidney injury) (Acute) Lactic acidosis (Acute) Syncope (Acute) Hypovolemic shock (Acute) Subjective: Chief complaint: Follow-up after admission for hemorrhagic shock secondary to GI bleed, acute blood loss anemia, gastric mass and syncope. Patient seen and examined. No acute events overnight. This morning, he complained of pain at the penile area due to the Fowler catheter. Denies chest pain or shortness of breath. Denied abdominal pain, nausea or vomiting. He is afebrile, slightly tachycardic, blood pressure is elevated, pulse ox is maintained on room air. - Physical Exam General: Alert, Cooperative, No apparent distress, - HEENT: Atraumatic, PERRLA, EOMI, Normocephalic Oral: Moist Mucosa, No Gingival or Mucosal Lesions/ Ulcerations Neck: Supple, No JVD, Negative Carotid Bruits, Trachea Midline, Thyroid Normal Size and Texture Lungs: Clear to auscultation, No rhonchi, No wheeze, No rales, Diminished Cardiovascular: Regular rate, Regular Rhythm, Normal S1, Normal S2, PMI Normal, Tachycardic Abdomen: Bowel Sounds Present, Soft, Non Tender, Non-Distended, No Hepato-splenomegaly Extremities: No clubbing, No cyanosis, No edema Skin: No rashes, No breakdown Lymphatic: No Cervical, Supraclavicular, or Inguinal Adenopathy Neurological: Cranial nerves II-XII grossly intact, Motor Exam 5/5 strength throughout Psych/Mental Status: Agitated, Restless Vital Signs Temp Pulse Resp BP Pulse Ox 97.3 F L 107 H 20 H 165/64 H 95 10/01/18 07:14 10/01/18 08:00 10/01/18 08:00 10/01/18 08:00 10/01/18 08:00 Oxygen Flow Rate (L/min) 2 Oxygen Delivery Method Room Air Weight: 138 lb 10.732 oz Body Mass Index (BMI) 23.5 Intake and Output for Last 24 Hours 09/29/18 09/30/18 10/01/18 23:59 23:59 23:59 Intake Total 1600 / 1600 3041 / 3041 Output Total 1000 / 1000 Balance 1600 / 1600 2040 / 2040 Laboratory Tests Past 24 Hrs 09/30/18 09/30/18 09/30/18 16:20 16:20 16:20 WBC RBC Hgb Hct MCV MCH MCHC RDW RDW Differential Plt Count MPV Immature Gran % (Auto) Neut % (Auto) Lymph % (Auto) Benson % (Auto) Eos % (Auto) Baso % (Auto) Absolute Neuts (auto) Absolute Lymphs (auto) Total Counted Differential Comment Reactive Lymphocytes Platelet Estimate Anisocytosis Ovalocytes Manoj Cells PT 15.1 H INR 1.2 APTT 30.9 Specimen Type Sample Site pH Bicarbonate Actual POC Total CO2 Base Excess O2 Saturation ABG pCO2 ABG pO2 Blas Test O2 Delivery Device Liter Flow Blood Gas Notified Whom Blood Gas Notified Time Sodium Potassium Chloride Carbon Dioxide Anion Gap BUN Creatinine Estim Creat Clear Calc Est GFR (MDRD) Af Amer Est GFR (MDRD) Non-Af BUN/Creatinine Ratio Glucose Lactic Acid 3.1 H Calcium Blood Type O POSITIVE Antibody Screen NEGATIVE Crossmatch 09/30/18 09/30/18 09/30/18 16:20 16:20 18:50 WBC RBC Hgb Hct MCV MCH MCHC RDW RDW Differential Plt Count MPV Immature Gran % (Auto) Neut % (Auto) Lymph % (Auto) Benson % (Auto) Eos % (Auto) Baso % (Auto) Absolute Neuts (auto) Absolute Lymphs (auto) Total Counted Differential Comment Reactive Lymphocytes Platelet Estimate Anisocytosis Ovalocytes [place] Cells PT INR APTT Specimen Type Sample Site pH Bicarbonate Actual POC Total CO2 Base Excess O2 Saturation ABG pCO2 ABG pO2 Blas Test O2 Delivery Device Liter Flow Blood Gas Notified Whom Blood Gas Notified Time Sodium Potassium Chloride Carbon Dioxide Anion Gap BUN Creatinine Estim Creat Clear Calc Est GFR (MDRD) Af Amer Est GFR (MDRD) Non-Af BUN/Creatinine Ratio Glucose Lactic Acid 2.4 H Calcium Blood Type Antibody Screen Crossmatch See Detail See Detail 09/30/18 10/01/18 10/01/18 21:33 01:25 01:25 WBC 9.3 RBC 3.43 L Hgb 9.9 L Hct 30.1 L MCV 87.8 MCH 28.9 MCHC 32.9 RDW 16.2 H RDW Differential 51.2 H Plt Count 92 L MPV 9.4 Immature Gran % (Auto) 0.500 Neut % (Auto) 69.9 Lymph % (Auto) 23.4 Benson % (Auto) 5.9 Eos % (Auto) 0.1 Baso % (Auto) 0.2 Absolute Neuts (auto) 6.5 Absolute Lymphs (auto) 2.18 Total Counted Not Reportable Differential Comment SCANNED Reactive Lymphocytes RARE Platelet Estimate MOD DEC Anisocytosis 1+ Ovalocytes RARE [place] Cells RARE PT INR APTT Specimen Type ART Sample Site R Radial pH 7.43 Bicarbonate Actual 20.7 L POC Total CO2 22 Base Excess -4 L O2 Saturation 99 ABG pCO2 30.9 L ABG pO2 119 H Blas Test POS O2 Delivery Device Nasal Can Liter Flow 2.0 Blood Gas Notified Whom ICU Blood Gas Notified Time 2140 Sodium 149 H Potassium 4.3 Chloride 117 H Carbon Dioxide 24.0 Anion Gap 8 BUN 66 H Creatinine 1.08 Estim Creat Clear Calc 51.85 Est GFR (MDRD) Af Amer 85 Est GFR (MDRD) Non-Af 70 BUN/Creatinine Ratio 61.1 H Glucose 174 H Lactic Acid Calcium 7.3 L Blood Type Antibody Screen Crossmatch 10/01/18 10/01/18 01:25 06:00 WBC 14.3 H RBC 3.54 L Hgb 10.2 L Hct 31.1 L MCV 87.9 MCH 28.8 MCHC 32.8 RDW 16.7 H RDW Differential 50.7 H Plt Count 108 L MPV 10.5 Immature Gran % (Auto) 0.300 Neut % (Auto) 69.4 Lymph % (Auto) 24.7 Benson % (Auto) 5.2 Eos % (Auto) 0.3 Baso % (Auto) 0.1 Absolute Neuts (auto) 9.9 H Absolute Lymphs (auto) 3.53 Total Counted Not Reportable Differential Comment Reactive Lymphocytes Platelet Estimate Anisocytosis Ovalocytes Manoj Cells PT 15.1 H INR 1.2 APTT 32.0 Specimen Type Sample Site pH Bicarbonate Actual POC Total CO2 Base Excess O2 Saturation ABG pCO2 ABG pO2 Blas Test O2 Delivery Device Liter Flow Blood Gas Notified Whom Blood Gas Notified Time Sodium Potassium Chloride Carbon Dioxide Anion Gap BUN Creatinine Estim Creat Clear Calc Est GFR (MDRD) Af Amer Est GFR (MDRD) Non-Af BUN/Creatinine Ratio Glucose Lactic Acid Calcium Blood Type Antibody Screen Crossmatch POC Glucose 10/01/18 09/30/18 05:57 20:22 POC Glucose 110 160 H Medical Necessity - Tobacco Use Smoking Status: Former smoker Tobacco Use: Non-smoker Assessment/Plan All Active Problems Gastric mass (Acute) Acute blood loss anemia (Acute) GI bleed (Acute) NABEEL (acute kidney injury) (Acute) Lactic acidosis (Acute) Syncope (Acute) Hypovolemic shock (Acute) This is a 78 years old male patient was sent from TCU down to the ED because of syncopal episode and black stools, found to have hemorrhagic shock secondary to GI bleed and acute blood loss anemia. Recently, patient was admitted at another hospital for pneumonia, had CT scan chest including the upper part of the abdomen that showed mass in his stomach. #1 hemorrhagic shock: Secondary to GI bleed. Patient has been on IV fluids, received blood transfusion. Blood pressure maintained at this time, still slightly tachycardic, other vital signs are stable. His lactic acid was elevated at 3.1 which is likely because of the shock, improved with IV fluids and blood transfusion. He is on IV fluids, IV Protonix. Plan to continue same treatment. #2 GI bleed/gastric mass: Status post upper EGD that revealed gastric mass, biopsy taken, visible blood vessel with blood clot was seen, status post epinephrine injection. Patient received blood transfusion with packed RBCs and platelets. At this time, blood pressure stable, still tachycardic. Plan to continue same treatment, awaiting biopsy results from the gastric mass. #3 acute blood loss anemia: Probably due to the gastric mass. Patient received a total of 4 units of packed RBCs, 2 units of fresh frozen plasma and 1 unit of platelets. Today's hemoglobin is 10.2 g/dL. Platelet count is 108,000. INR is 1.2. Plan to check H&H every 6 hours, transfuse if hemoglobin came down below 8 g/dL. #5 hypertensive urgency: At this time, blood pressure stabilized. Patient is on IV hydralazine as needed as well as labetalol IV. Plan to monitor. #6 syncopal episode: Attributed to vasovagal syncope due to hemorrhagic shock and blood loss anemia. #7 type 2 diabetes mellitus: Patient kept on n.p.o., blood sugar stable. Continue insulin sliding scale. #8 hypertension: Blood pressure stable at this time, plan as above. #9 hyperlipidemia: Hold statins. #10 GERD: He is on IV Protonix. #11 DVT prophylaxis: SCDs. This note was generated with [employer] software. It may contain incorrect words, spelling, and punctuation that were not noted in checking the note before signing. Code Visit Inpatient E&M: 77901 Subs Hosp L2
[2018-10-01 12:10] LABS: Bedside Glucose 96 mg/dL (70-110)
[2018-10-01 12:12] LABS: Hematocrit 28.2 % (40-54); Hemoglobin 9.2 g/dl (13.0-16.5)
--- NOTE | 2018-10-01 14:18 | CASEMGMT ---
CAR received message from Madyson in TCU, she states pt can return to TCU when ready. SW spoke w/pt's daughter in regard to pt. Pt's daughter is considering hospice, but would like to speak w/pt about it. She did attempt to speak w/pt, however he is too confused at present. Pt's daughter did speak w/pt's however and she does not feel that she can care for pt at home. CAR explained that if they decide on hospice, pt can have hospice at home, hospice in a [place]--explained the hospice services would be covered but room and board would be private pay, or hospice in an inpt facility if pt is symptomatic--and explained that this would be covered by Medicare. Pt's daughter states they would want something in [facility] as pt lives in [place]. SW explained will look into facilities and let her know. SUZANNE Plunkett, D[employer]ITAL MEDIA PRODUCER
--- NOTE | 2018-10-01 14:22 | CASEMGMT ---
CAR called the following hospice facilities in [facility]: [facility], [address] [address] , fax [phone]. [facility] has longer term hospice, where the cost is $160/day for room and board, and hospice services are covered. If someone is symptomatic, it is covered fully by Medicare. They are full right now, and it could be a 1-2 week wait at present. If family is interested, we can fax clinical information to them for them to review, and see if pt qualifies for inpt symptom management. [facility], 3 locations--[place], [place] and [place] To have pt assessed, they would need to see the pt in person to assess for symptom management. To start the process we would need to call and fax any needed clinical information. [facility] [address] To have someone assessed, they would need to speak w/the RN, possibly see the pt in person. To start the process we would need to call and fax requested clinical information. [facility] [address] [place], [place] To have pt assessed, they would have a nurse come to see and assess for inpt symptom management. They have longer term hospice also, cost is $280/day but there is a wait for this. They also offer at home hospice and [place] in [place] [facility] [place]. Other possible options for hospice at home in [facility]: [facility] [phone] [facility] [phone] [facility] Or, if pt would like to go to a [place], we can make a referral to any [place] of pt and family's choice, and find out which hospice agencies go to this facility. Or, if there is a hospice they prefer, we can find out which facilities they cover. CAR will leave this information for pt's daughter. SUZANNE Plunkett, PRESIDING STEWARD
--- NOTE | 2018-10-01 14:53 | CASEMGMT ---
SW called pt's daughter back and reviewed the information in the previous note, explained will leave copy of the note in the chart for her. SW also did make a couple of additional phone calls and included this information in the note as well. CAR explained to let the SW on Thursday know what she would like to do, and SW on Thursday can make the appropriate referral. Pt's daughter states pt may not be able to afford to cover the cost of long-term, but also states that pt will likely not qualify for Medicaid--as this is the one insurance that would cover the room and board for pt in a long-term while on hospice. SW explained that pt can still go back to TCU also while they decide what they want to do. Daughter states too she spoke w/the oncologist and there may be some gentle treatment options, so this is another factor to consider. Plan: TBD. Return to TCU vs referral to hospice of pt and family's choice. If pt does not qualify for inpt symptom management, family to decide if can afford hospice in long-term or will take pt home w/hospice. Daughter to reach out to CAR on Thursday. SUZANNE Plunkett, SERVER ASSISTANT
[2018-10-01 16:45] LABS: Bedside Glucose 87 mg/dL (70-110)
[2018-10-01 16:53] LABS: Hematocrit 29.3 % (40-54); Hemoglobin 9.5 g/dl (13.0-16.5)
[2018-10-02] VITALS (18 sets, daily range): BP systolic 106–156; BP diastolic 50–76; PULSE 78–98; RESP 14–20; TEMP 36.4–37.2; O2SAT 95–98
[2018-10-02] MEDS: Dext 5%-0.45% NS 1,000 ML 100 ML IV ×3 (00:02→18:22)
[2018-10-02 06:21] LABS: Absolute Lymphocyte Count 1.55 X10^3/ul (0.83-4.51); Basophil# 0.01 X10^3/uL; Basophil% 0.1 % (0-1); Eosinophil# 0.08 X10^3/uL; Hematocrit 27.8 % (40-54); Hemoglobin 9.1 g/dl (13.0-16.5); Lymphocyte # 1.55 X10^3/ul (4.0); Lymphocyte % 19.1 % (19-41); Mean Corp Hgb Conc 32.7 g/gl (32-36); Mean Corpuscular Volume 88.5 fL (80-94); Mean Platelet Vol. 9.6 fl (6.2-12.0); Monocyte# 0.44 X10^3/uL; Monocyte% 5.4 % (0-10); Neutrophil % 74.2 % (47-70); Platelet Count 117 K/mm3 (150-450); RBC Distribution Width CV 17.1 % (11.6-14.6); RBC Distribution Width SD 54.1 fl (35.1-43.9); Red Blood Count 3.14 M/mm3 (4.6-6.2); White Blood Count 8.1 K/mm3 (4.4-11.0)
[2018-10-02 06:24] LABS: Anion Gap 7 (5-15); BUN 25 mg/dL (7-18); BUN/Creat Ratio 28.1 RATIO (10-20); Calcium,Total 7.5 mg/dL (8.5-10.1); Chloride 112 mmol/L (98-107); Creatinine, Serum 0.89 mg/dL (0.70-1.30); EST Glomerular Filtration Rate 88 mL/min (>60); Est Glom Filt Rate - Afr Amer 106 mL/min (>60); Estimated Creatinine Clearance 62.92 ml/min; Glucose 103 mg/dL (74-106); Magnesium 1.9 mg/dL (1.6-2.6); Phosphorus 2.2 mg/dL (2.5-4.9); Potassium 3.5 mmol/L (3.5-5.1); Sodium Level 144 mmol/L (136-145)
[2018-10-02 06:26] LABS: POSITIVE COUNT NO; POSITIVE DIFFERENTIAL NO; POSITIVE MORPHOLOGY NO
--- NOTE | 2018-10-02 06:49 | PCM.PN.INT ---
Subjective: Patient did well overnight. No acute issues were reported. Patient has not had any repeat bleeding noted by nursing such as melena, hematochezia, hemoptysis or coffee-ground emesis. Patient continues to report Fowler pain, but otherwise no complaints of dyspnea or chest pain. General: Alert, Cooperative, Confused - Intermittently, - - Appears stated age. No conversational dyspnea appreciated. HEENT: Atraumatic, PERRLA, EOMI, Normocephalic, - - No scleral icterus or injection noted Oral: Moist Mucosa, No Gingival or Mucosal Lesions/ Ulcerations Neck: Supple, No JVD, No Nodes, Trachea Midline Lungs: No rhonchi, No wheeze, No rales, Diminished, - - Symmetric expansion. No dullness to percussion. Cardiovascular: Regular rate, Regular Rhythm, Normal S1, Normal S2, No murmurs, No rub noted, No Gallop Abdomen: Bowel Sounds Present, Soft, Non Tender, Non-Distended Extremities: No clubbing, No cyanosis, No edema Skin: No rashes, No breakdown Musculoskeletal: No Tenderness to Palpation of Joints or Extremities Lymphatic: No Cervical, Supraclavicular, or Inguinal Adenopathy Neurological: Cranial nerves II-XII grossly intact, Neuro grossly intact, Motor Exam 5/5 strength throughout Psych/Mental Status: Flat Affect Vital Signs Temp Pulse Resp BP Pulse Ox 36.6 C 80 15 106/65 96 10/02/18 00:00 10/02/18 06:00 10/02/18 06:00 10/02/18 06:00 10/02/18 06:00 Oxygen Flow Rate (L/min) 2 Oxygen Delivery Method Room Air Weight: 92.4 kg Body Mass Index (BMI) 23.5 Intake and Output for Last 24 Hours 09/30/18 10/01/18 10/02/18 23:59 23:59 23:59 Intake Total 1600 / 1600 4446 / 4446 681 / 681 Output Total 2365 / 2365 600 / 600 Balance 1600 / 1600 2081 / 2081 81 / 81 Labs (Last 48 Hours) 09/30/18 09/30/18 09/30/18 16:20 16:20 16:20 WBC RBC Hgb Hct MCV MCH MCHC RDW RDW Differential Plt Count MPV Immature Gran % (Auto) Neut % (Auto) Lymph % (Auto) [place] % (Auto) Eos % (Auto) Baso % (Auto) Absolute Neuts (auto) Absolute Lymphs (auto) Total Counted Differential Comment Reactive Lymphocytes Platelet Estimate Anisocytosis Ovalocytes Manoj Cells PT 15.1 H INR 1.2 APTT 30.9 Specimen Type Sample Site pH Bicarbonate Actual POC Total CO2 Base Excess O2 Saturation ABG pCO2 ABG pO2 Blas Test O2 Delivery Device Liter Flow Blood Gas Notified Whom Blood Gas Notified Time Sodium Potassium Chloride Carbon Dioxide Anion Gap BUN Creatinine Estim Creat Clear Calc Est GFR (MDRD) Af Amer Est GFR (MDRD) Non-Af BUN/Creatinine Ratio Glucose Lactic Acid 3.1 H Calcium Phosphorus Magnesium POC Glucose Blood Type O POSITIVE Antibody Screen NEGATIVE Crossmatch 09/30/18 09/30/18 09/30/18 16:20 16:20 18:50 WBC RBC Hgb Hct MCV MCH MCHC RDW RDW Differential Plt Count MPV Immature Gran % (Auto) Neut % (Auto) Lymph % (Auto) [place] % (Auto) Eos % (Auto) Baso % (Auto) Absolute Neuts (auto) Absolute Lymphs (auto) Total Counted Differential Comment Reactive Lymphocytes Platelet Estimate Anisocytosis Ovalocytes Manoj Cells PT INR APTT Specimen Type Sample Site pH Bicarbonate Actual POC Total CO2 Base Excess O2 Saturation ABG pCO2 ABG pO2 Blas Test O2 Delivery Device Liter Flow Blood Gas Notified Whom Blood Gas Notified Time Sodium Potassium Chloride Carbon Dioxide Anion Gap BUN Creatinine Estim Creat Clear Calc Est GFR (MDRD) Af Amer Est GFR (MDRD) Non-Af BUN/Creatinine Ratio Glucose Lactic Acid 2.4 H Calcium Phosphorus Magnesium POC Glucose Blood Type Antibody Screen Crossmatch See Detail See Detail 09/30/18 09/30/18 10/01/18 20:22 21:33 01:25 WBC RBC Hgb Hct MCV MCH MCHC RDW RDW Differential Plt Count MPV Immature Gran % (Auto) Neut % (Auto) Lymph % (Auto) [place] % (Auto) Eos % (Auto) Baso % (Auto) Absolute Neuts (auto) Absolute Lymphs (auto) Total Counted Differential Comment Reactive Lymphocytes Platelet Estimate Anisocytosis Ovalocytes [place] Cells PT INR APTT Specimen Type ART Sample Site R Radial pH 7.43 Bicarbonate Actual 20.7 L POC Total CO2 22 Base Excess -4 L O2 Saturation 99 ABG pCO2 30.9 L ABG pO2 119 H Blas Test POS O2 Delivery Device Nasal Can Liter Flow 2.0 Blood Gas Notified Whom ICU MD Blood Gas Notified Time 2140 Sodium 149 H Potassium 4.3 Chloride 117 H Carbon Dioxide 24.0 Anion Gap 8 BUN 66 H Creatinine 1.08 Estim Creat Clear Calc 51.85 Est GFR (MDRD) Af Amer 85 Est GFR (MDRD) Non-Af 70 BUN/Creatinine Ratio 61.1 H Glucose 174 H Lactic Acid Calcium 7.3 L Phosphorus Magnesium POC Glucose 160 H Blood Type Antibody Screen Crossmatch 10/01/18 10/01/18 10/01/18 01:25 01:25 05:57 WBC 9.3 RBC 3.43 L Hgb 9.9 L Hct 30.1 L MCV 87.8 MCH 28.9 MCHC 32.9 RDW 16.2 H RDW Differential 51.2 H Plt Count 92 L MPV 9.4 Immature Gran % (Auto) 0.500 Neut % (Auto) 69.9 Lymph % (Auto) 23.4 [place] % (Auto) 5.9 Eos % (Auto) 0.1 Baso % (Auto) 0.2 Absolute Neuts (auto) 6.5 Absolute Lymphs (auto) 2.18 Total Counted Not Reportable Differential Comment SCANNED Reactive Lymphocytes RARE Platelet Estimate MOD DEC Anisocytosis 1+ Ovalocytes RARE Manoj Cells RARE PT 15.1 H INR 1.2 APTT 32.0 Specimen Type Sample Site pH Bicarbonate Actual POC Total CO2 Base Excess O2 Saturation ABG pCO2 ABG pO2 Blas Test O2 Delivery Device Liter Flow Blood Gas Notified Whom Blood Gas Notified Time Sodium Potassium Chloride Carbon Dioxide Anion Gap BUN Creatinine Estim Creat Clear Calc Est GFR (MDRD) Af Amer Est GFR (MDRD) Non-Af BUN/Creatinine Ratio Glucose Lactic Acid Calcium Phosphorus Magnesium POC Glucose 110 Blood Type Antibody Screen Crossmatch 10/01/18 10/01/18 10/01/18 06:00 11:45 12:04 WBC 14.3 H RBC 3.54 L Hgb 10.2 L 9.2 L Hct 31.1 L 28.2 L MCV 87.9 MCH 28.8 MCHC 32.8 RDW 16.7 H RDW Differential 50.7 H Plt Count 108 L MPV 10.5 Immature Gran % (Auto) 0.300 Neut % (Auto) 69.4 Lymph % (Auto) 24.7 [place] % (Auto) 5.2 Eos % (Auto) 0.3 Baso % (Auto) 0.1 Absolute Neuts (auto) 9.9 H Absolute Lymphs (auto) 3.53 Total Counted Not Reportable Differential Comment Reactive Lymphocytes Platelet Estimate Anisocytosis Ovalocytes [place] Cells PT INR APTT Specimen Type Sample Site pH Bicarbonate Actual POC Total CO2 Base Excess O2 Saturation ABG pCO2 ABG pO2 Blas Test O2 Delivery Device Liter Flow Blood Gas Notified Whom Blood Gas Notified Time Sodium Potassium Chloride Carbon Dioxide Anion Gap BUN Creatinine Estim Creat Clear Calc Est GFR (MDRD) Af Amer Est GFR (MDRD) Non-Af BUN/Creatinine Ratio Glucose Lactic Acid Calcium Phosphorus Magnesium POC Glucose 96 Blood Type Antibody Screen Crossmatch 10/01/18 10/01/18 10/02/18 16:30 16:41 06:00 WBC 8.1 RBC 3.14 L Hgb 9.5 L 9.1 L Hct 29.3 L 27.8 L MCV 88.5 MCH 29.0 MCHC 32.7 RDW 17.1 H RDW Differential 54.1 H Plt Count 117 L MPV 9.6 Immature Gran % (Auto) 0.200 Neut % (Auto) 74.2 H Lymph % (Auto) 19.1 [place] % (Auto) 5.4 Eos % (Auto) 1.0 Baso % (Auto) 0.1 Absolute Neuts (auto) 6.0 Absolute Lymphs (auto) 1.55 Total Counted Not Reportable Differential Comment Reactive Lymphocytes Platelet Estimate Anisocytosis Ovalocytes [place] Cells PT INR APTT Specimen Type Sample Site pH Bicarbonate Actual POC Total CO2 Base Excess O2 Saturation ABG pCO2 ABG pO2 Blas Test O2 Delivery Device Liter Flow Blood Gas Notified Whom Blood Gas Notified Time Sodium Potassium Chloride Carbon Dioxide Anion Gap BUN Creatinine Estim Creat Clear Calc Est GFR (MDRD) Af Amer Est GFR (MDRD) Non-Af BUN/Creatinine Ratio Glucose Lactic Acid Calcium Phosphorus Magnesium POC Glucose 87 Blood Type Antibody Screen Crossmatch 10/02/18 06:00 WBC RBC Hgb Hct MCV MCH MCHC RDW RDW Differential Plt Count MPV Immature Gran % (Auto) Neut % (Auto) Lymph % (Auto) [place] % (Auto) Eos % (Auto) Baso % (Auto) Absolute Neuts (auto) Absolute Lymphs (auto) Total Counted Differential Comment Reactive Lymphocytes Platelet Estimate Anisocytosis Ovalocytes Manoj Cells PT INR APTT Specimen Type Sample Site pH Bicarbonate Actual POC Total CO2 Base Excess O2 Saturation ABG pCO2 ABG pO2 Blas Test O2 Delivery Device Liter Flow Blood Gas Notified Whom Blood Gas Notified Time Sodium 144 Potassium 3.5 Chloride 112 H Carbon Dioxide 25.0 Anion Gap 7 BUN 25 H Creatinine 0.89 Estim Creat Clear Calc 62.92 Est GFR (MDRD) Af Amer 106 Est GFR (MDRD) Non-Af 88 BUN/Creatinine Ratio 28.1 H Glucose 103 Lactic Acid Calcium 7.5 L Phosphorus 2.2 L Magnesium 1.9 POC Glucose Blood Type Antibody Screen Crossmatch Medical Necessity - Tobacco Use Smoking Status: Former smoker Tobacco Use: Non-smoker Assessment/Plan All Active Problems Gastric mass (Acute) Acute blood loss anemia (Acute) GI bleed (Acute) NABEEL (acute kidney injury) (Acute) Lactic acidosis (Acute) Syncope (Acute) Hypovolemic shock (Acute) RECOMMENDATIONS: 1. Okay to monitor H&H daily and discontinue art line 2. Labetalol and hydralazine as needed for hypertension 3. Await pathology for prognostication 4. Defer to surgery on repeat endoscopy 5. Transition to twice daily PPI per orders 6. Possible transfer out of the intensive care unit later today 7. Okay to initiate voiding trial from my perspective IMPRESSIONS: 1. Acute blood loss anemia secondary to duodenal ulcer and probable gastric cancer Patient has received 4 units of packed red blood cells, 2 units of FFP and 1 unit of platelets in total. Patient did have a visible vessel with intervention initially. Monitor H&H on a daily basis. Transfuse to keep hemoglobin greater than 8 given high likelihood of repeat bleed. Cannot rule out the potential for a repeat endoscopy. Will await pathology results for prognostication. Patient does have reported abdominal adenopathy, so metastatic disease is likely. 2. Hemorrhagic shock secondary to upper GI bleed Patient with elevated lactate and bump in creatinine associated with active GI bleed. Patient has been resuscitated at this time. Hemoglobin is in acceptable range. We will continue to monitor closely. Creatinine has normalized with volume resuscitation. No signs of repeat bleeding. 3. Hypertensive urgency Patient's blood pressure was elevated following EGD. Unclear if this is secondary to epinephrine versus stability of active blood loss with endogenous endorphins. Patient has responded well to labetalol therapy as needed. Okay to discontinue art line 4. Recent syncope Clinical suspicion for a vasovagal episode associated with active upper GI bleed. We will continue to monitor. No focal neurologic deficits appreciated at this time. 5. Diabetes mellitus type 2/acute kidney injury/lactic acidosis/advanced age/hypernatremia/hyperchloremia Complicates care, management, recovery and prognosis. Patient has received significant volume resuscitation with normal saline and this likely accounts for the hypernatremia and hyperchloremia. Transition LR appears to have addressed the situation. Okay to Hep-Lock IV from my perspective. Code Visit Inpatient E&M: 92717 Subs Hosp L3
--- NOTE | 2018-10-02 08:43 | PN.SURG_ITS ---
Patient Problems: Active and Suspected Problems Acute blood loss anemia (Acute) GI bleed (Acute) gastric mass NABEEL (acute kidney injury) (Acute) Lactic acidosis (Acute) Syncope (Acute) Hypovolemic shock (Acute) Subjective: Patient's hemoglobin has remained stable, patient does complain of being weak/no energy - Physical Exam General: Alert, Oriented x3, Cooperative, No apparent distress HEENT: Atraumatic Lungs: Normal air movement Cardiovascular: Regular rate Abdomen: Soft, Non Tender, Non-Distended Vital Signs Temp Pulse Resp BP Pulse Ox 97.6 F L 78 15 119/61 98 10/02/18 04:00 10/02/18 07:00 10/02/18 07:00 10/02/18 07:00 10/02/18 07:00 Oxygen Flow Rate (L/min) 2 Oxygen Delivery Method Room Air Weight: 203 lb 11.314 oz Body Mass Index (BMI) 23.5 Intake and Output for Last 24 Hours 09/30/18 10/01/18 10/02/18 23:59 23:59 23:59 Intake Total 1600 / 1600 4446 / 4446 1384 / 1384 Output Total 2365 / 2365 1125 / 1125 Balance 1600 / 1600 2081 / 2081 259 / 259 Laboratory Tests Past 24 Hrs 10/01/18 10/01/18 10/02/18 11:45 16:30 06:00 WBC 8.1 RBC 3.14 L Hgb 9.2 L 9.5 L 9.1 L Hct 28.2 L 29.3 L 27.8 L MCV 88.5 MCH 29.0 MCHC 32.7 RDW 17.1 H RDW Differential 54.1 H Plt Count 117 L MPV 9.6 Immature Gran % (Auto) 0.200 Neut % (Auto) 74.2 H Lymph % (Auto) 19.1 [place] % (Auto) 5.4 Eos % (Auto) 1.0 Baso % (Auto) 0.1 Absolute Neuts (auto) 6.0 Absolute Lymphs (auto) 1.55 Total Counted Not Reportable Sodium Potassium Chloride Carbon Dioxide Anion Gap BUN Creatinine Estim Creat Clear Calc Est GFR (MDRD) Af Amer Est GFR (MDRD) Non-Af BUN/Creatinine Ratio Glucose Calcium Phosphorus Magnesium 10/02/18 06:00 WBC RBC Hgb Hct MCV MCH MCHC RDW RDW Differential Plt Count MPV Immature Gran % (Auto) Neut % (Auto) Lymph % (Auto) [place] % (Auto) Eos % (Auto) Baso % (Auto) Absolute Neuts (auto) Absolute Lymphs (auto) Total Counted Sodium 144 Potassium 3.5 Chloride 112 H Carbon Dioxide 25.0 Anion Gap 7 BUN 25 H Creatinine 0.89 Estim Creat Clear Calc 62.92 Est GFR (MDRD) Af Amer 106 Est GFR (MDRD) Non-Af 88 BUN/Creatinine Ratio 28.1 H Glucose 103 Calcium 7.5 L Phosphorus 2.2 L Magnesium 1.9 POC Glucose 10/01/18 10/01/18 10/01/18 16:41 12:04 05:57 POC Glucose 87 96 110 Medical Necessity - Tobacco Use Smoking Status: Former smoker Tobacco Use: Non-smoker Assessment/Plan All Active Problems Gastric mass (Acute) Acute blood loss anemia (Acute) GI bleed (Acute) NABEEL (acute kidney injury) (Acute) Lactic acidosis (Acute) Syncope (Acute) Hypovolemic shock (Acute) Continue n.p.o. for today, to allow the areas of previous bleeding to heal Continue to monitor hemoglobin Continue PPI Await pathology Griselda Holbrook M.D. Pager: [phone] [facility] [address] [place] [address], [facility], [address] [place] [address] Office: [phone]
--- NOTE | 2018-10-02 09:04 | PCM.PROGNOTE ---
Patient Problems: Active and Suspected Problems Acute blood loss anemia (Acute) GI bleed (Acute) gastric mass NABEEL (acute kidney injury) (Acute) Lactic acidosis (Acute) Syncope (Acute) Hypovolemic shock (Acute) Subjective: Chief complaint: Follow-up after admission for hemorrhagic shock secondary to GI bleed, acute blood loss anemia, gastric mass and syncope. Patient seen and examined. No acute events overnight. He denied abdominal pain, nausea or vomiting. No reported melena, hematochezia or hematemesis. Denies chest pain or shortness of breath. His vital signs are stable. - Physical Exam General: Alert, Cooperative, No apparent distress HEENT: Atraumatic, PERRLA, EOMI, Normocephalic Oral: Moist Mucosa, No Gingival or Mucosal Lesions/ Ulcerations Neck: Supple, No JVD, Negative Carotid Bruits, Trachea Midline, Thyroid Normal Size and Texture Lungs: Clear to auscultation, No rhonchi, No wheeze, No rales, Diminished Cardiovascular: Regular rate, Regular Rhythm, Normal S1, Normal S2, No murmurs, PMI Normal Abdomen: Bowel Sounds Present, Soft, Non Tender, Non-Distended, No Hepato-splenomegaly Extremities: No clubbing, No cyanosis, No edema Skin: No rashes, No breakdown Lymphatic: No Cervical, Supraclavicular, or Inguinal Adenopathy Neurological: Cranial nerves II-XII grossly intact, Neuro grossly intact Psych/Mental Status: Flat Affect Vital Signs Temp Pulse Resp BP Pulse Ox 97.6 F L 78 15 119/61 98 10/02/18 04:00 10/02/18 07:00 10/02/18 07:00 10/02/18 07:00 10/02/18 07:00 Oxygen Flow Rate (L/min) 2 Oxygen Delivery Method Room Air Weight: 203 lb 11.314 oz Body Mass Index (BMI) 23.5 Intake and Output for Last 24 Hours 09/30/18 10/01/18 10/02/18 23:59 23:59 23:59 Intake Total 1600 / 1600 4446 / 4446 1384 / 1384 Output Total 2365 / 2365 1125 / 1125 Balance 1600 / 1600 2081 / 2081 259 / 259 Laboratory Tests Past 24 Hrs 10/01/18 10/01/18 10/02/18 11:45 16:30 06:00 WBC 8.1 RBC 3.14 L Hgb 9.2 L 9.5 L 9.1 L Hct 28.2 L 29.3 L 27.8 L MCV 88.5 MCH 29.0 MCHC 32.7 RDW 17.1 H RDW Differential 54.1 H Plt Count 117 L MPV 9.6 Immature Gran % (Auto) 0.200 Neut % (Auto) 74.2 H Lymph % (Auto) 19.1 [place] % (Auto) 5.4 Eos % (Auto) 1.0 Baso % (Auto) 0.1 Absolute Neuts (auto) 6.0 Absolute Lymphs (auto) 1.55 Total Counted Not Reportable Sodium Potassium Chloride Carbon Dioxide Anion Gap BUN Creatinine Estim Creat Clear Calc Est GFR (MDRD) Af Amer Est GFR (MDRD) Non-Af BUN/Creatinine Ratio Glucose Calcium Phosphorus Magnesium 10/02/18 06:00 WBC RBC Hgb Hct MCV MCH MCHC RDW RDW Differential Plt Count MPV Immature Gran % (Auto) Neut % (Auto) Lymph % (Auto) [place] % (Auto) Eos % (Auto) Baso % (Auto) Absolute Neuts (auto) Absolute Lymphs (auto) Total Counted Sodium 144 Potassium 3.5 Chloride 112 H Carbon Dioxide 25.0 Anion Gap 7 BUN 25 H Creatinine 0.89 Estim Creat Clear Calc 62.92 Est GFR (MDRD) Af Amer 106 Est GFR (MDRD) Non-Af 88 BUN/Creatinine Ratio 28.1 H Glucose 103 Calcium 7.5 L Phosphorus 2.2 L Magnesium 1.9 POC Glucose 10/01/18 10/01/18 16:41 12:04 POC Glucose 87 96 Medical Necessity - Tobacco Use Smoking Status: Former smoker Tobacco Use: Non-smoker Assessment/Plan All Active Problems Gastric mass (Acute) Acute blood loss anemia (Acute) GI bleed (Acute) NABEEL (acute kidney injury) (Acute) Lactic acidosis (Acute) Syncope (Acute) Hypovolemic shock (Acute) This is a 78 years old male patient was sent from TCU down to the ED because of syncopal episode and black stools, found to have hemorrhagic shock secondary to GI bleed and acute blood loss anemia. Recently, patient was admitted at another hospital for pneumonia, had CT scan chest including the upper part of the abdomen that showed mass in his stomach. #1 hemorrhagic shock: Secondary to GI bleed. Blood pressure stabilized, no more tachycardia. Patient is on IV PPI and IV fluids. He received a total of 4 units of packed RBCs. He was kept on n.p.o. Plan to continue same treatment, transfer to PCU. #2 GI bleed/gastric mass: Status post upper EGD that revealed gastric mass, biopsy taken, nonbleeding duodenal ulcer with visible blood vessel, injected with epinephrine. Patient received blood transfusion with packed RBCs and platelets. Blood pressure and heart rate stabilized. He is on IV Protonix. Gastric biopsies pending. Plan as above. #3 acute blood loss anemia: Probably due to the gastric mass. Patient received a total of 4 units of packed RBCs, 2 units of fresh frozen plasma and 1 unit of platelets. Today's hemoglobin is 9.1 g/dL. Platelet count is 117,000. Plan to repeat CBC tomorrow morning. #5 hypertensive urgency: Blood pressure improved. Patient is on IV hydralazine as needed as well as labetalol IV. Plan to monitor. #6 syncopal episode: Attributed to vasovagal syncope due to hemorrhagic shock and blood loss anemia. #7 type 2 diabetes mellitus: Patient kept on n.p.o., blood sugar stable. Continue insulin sliding scale. #8 hypertension: Blood pressure stable at this time, plan as above. #9 hyperlipidemia: Hold statins. #10 GERD: He is on IV Protonix. #11 DVT prophylaxis: SCDs. This note was generated with [employer] software. It may contain incorrect words, spelling, and punctuation that were not noted in checking the note before signing. Code Visit Inpatient E&M: 23452 Subs Hosp L2
--- NOTE | 2018-10-02 10:10 | CM.UR ---
participated in interdisciplinary rounds. He has gotten 4 units of PRBCs, FFP and platelets. Plan is to transfer out of ICU today. Discharge plan is return to TCU vs inpatient hospice. Jona Meier RN, CCM.
[2018-10-02 11:56] LABS: Bedside Glucose 100 mg/dL (70-110)
--- NOTE | 2018-10-02 13:26 | CASEMGMT ---
Social Work Note SW attempted to meet with pt. Pt still confused. SW placed a call to pt's daughter Dr. Vera. Dr. Vera states she would like pt to return to TCU once medically cleared. Dr. Vera states she will be at [facility] later today. Per previous notes, pt is able to return to TCU once medically cleared. Green sheet on chart. Plan: TCU once medically cleared Sandra Quiroga ASSISTANT AT SURGERY, [employer]E [employer]IPPER
[2018-10-02 18:36] LABS: Bedside Glucose 115 mg/dL (70-110)
[2018-10-03] VITALS (13 sets, daily range): BP systolic 120–137; BP diastolic 64–72; PULSE 82–119; RESP 16–18; TEMP 36.6–37.1; O2SAT 94–98
[2018-10-03 01:11] LABS: Bedside Glucose 87 mg/dL (70-110)
[2018-10-03 01:11] LABS: Bedside Glucose 77 mg/dL (70-110)
[2018-10-03 01:15] LABS: Bedside Glucose 135 mg/dL (70-110)
[2018-10-03] MEDS: Dext 5%-0.45% NS 1,000 ML 100 ML IV (05:13)
[2018-10-03 05:31] LABS: Bedside Glucose 120 mg/dL (70-110)
[2018-10-03 06:24] LABS: Absolute Lymphocyte Count 1.55 X10^3/ul (0.83-4.51); Absolute Neutrophil Count 4.3 X10^3/uL (2.0-7.7); Basophil# 0.01 X10^3/uL; Basophil% 0.2 % (0-1); Eosinophils% 1.5 % (0-5); Hematocrit 29.2 % (40-54); Hemoglobin 9.5 g/dl (13.0-16.5); Lymphocyte # 1.55 X10^3/ul (4.0); Lymphocyte % 23.8 % (19-41); Mean Corp Hgb Conc 32.5 g/gl (32-36); Mean Corpuscular Hgb 28.9 pg (27.0-32.0); Mean Corpuscular Volume 88.8 fL (80-94); Mean Platelet Vol. 9.9 fl (6.2-12.0); Monocyte% 7.7 % (0-10); Neutrophil # 4.32 X10^3/uL (2.7-7.7); Neutrophil % 66.5 % (47-70); Platelet Count 135 K/mm3 (150-450); RBC Distribution Width CV 16.4 % (11.6-14.6); RBC Distribution Width SD 52.5 fl (35.1-43.9); Red Blood Count 3.29 M/mm3 (4.6-6.2); White Blood Count 6.5 K/mm3 (4.4-11.0)
[2018-10-03 06:32] LABS: POSITIVE COUNT NO; POSITIVE DIFFERENTIAL NO; POSITIVE MORPHOLOGY NO
[2018-10-03 06:49] LABS: Anion Gap 8 (5-15); BUN 11 mg/dL (7-18); BUN/Creat Ratio 10.5 RATIO (10-20); Calcium,Total 7.5 mg/dL (8.5-10.1); Chloride 109 mmol/L (98-107); Creatinine, Serum 1.05 mg/dL (0.70-1.30); EST Glomerular Filtration Rate 72 mL/min (>60); Est Glom Filt Rate - Afr Amer 88 mL/min (>60); Estimated Creatinine Clearance 49.14 ml/min; Glucose 129 mg/dL (74-106); Potassium 3.1 mmol/L (3.5-5.1); Sodium Level 142 mmol/L (136-145)
--- NOTE | 2018-10-03 08:26 | PCM.PN.SRG ---
Patient Problems: Active and Suspected Problems Acute blood loss anemia (Acute) GI bleed (Acute) gastric mass NABEEL (acute kidney injury) (Acute) Lactic acidosis (Acute) Syncope (Acute) Hypovolemic shock (Acute) Subjective: Patient hemoglobin remains stable, tolerated some clears yesterday - Physical Exam General: Alert, Cooperative, No apparent distress Lungs: Normal air movement Cardiovascular: Regular rate Abdomen: Soft, Non Tender, Non-Distended Vital Signs Temp Pulse Resp BP Pulse Ox 98.7 F 82 18 130/68 H 94 10/03/18 05:17 10/03/18 06:58 10/03/18 05:17 10/03/18 05:17 10/03/18 08:14 Oxygen Flow Rate (L/min) 2 Oxygen Delivery Method Room Air Weight: 134 lb 4.184 oz Body Mass Index (BMI) 23.5 Intake and Output for Last 24 Hours 10/01/18 10/02/18 10/03/18 23:59 23:59 23:59 Intake Total 4446 / 4446 2648 / 2648 1192.3 / 1192.3 Output Total 2365 / 2365 2200 / 2200 2125 / 2125 Balance 2080 / 2080 448 / 448 -932.7 / -932.7 Laboratory Tests Past 24 Hrs 10/03/18 10/03/18 06:00 06:00 WBC 6.5 RBC 3.29 L Hgb 9.5 L Hct 29.2 L MCV 88.8 MCH 28.9 MCHC 32.5 RDW 16.4 H RDW Differential 52.5 H Plt Count 135 L MPV 9.9 Immature Gran % (Auto) 0.300 Neut % (Auto) 66.5 Lymph % (Auto) 23.8 [place] % (Auto) 7.7 Eos % (Auto) 1.5 Baso % (Auto) 0.2 Absolute Neuts (auto) 4.3 Absolute Lymphs (auto) 1.55 Total Counted Not Reportable Sodium 142 Potassium 3.1 L Chloride 109 H Carbon Dioxide 25.0 Anion Gap 8 BUN 11 Creatinine 1.05 Estim Creat Clear Calc 49.14 Est GFR (MDRD) Af Amer 88 Est GFR (MDRD) Non-Af 72 BUN/Creatinine Ratio 10.5 Glucose 129 H Calcium 7.5 L POC Glucose 10/03/18 10/03/18 10/02/18 05:13 00:26 18:16 POC Glucose 120 H 135 H 115 H 10/02/18 10/02/18 10/01/18 11:21 00:49 23:49 POC Glucose 100 87 77 Medical Necessity - Tobacco Use Smoking Status: Former smoker Tobacco Use: Non-smoker Assessment/Plan All Active Problems Gastric mass (Acute) Acute blood loss anemia (Acute) GI bleed (Acute) NABEEL (acute kidney injury) (Acute) Lactic acidosis (Acute) Syncope (Acute) Hypovolemic shock (Acute) Continue clears for today, patient is at high risk for rebleeding due to a gastric mass along with a visible vessel in the duodenal ulcer Continue to monitor hemoglobin Continue PPI Await pathology Griselda Holbrook M.D. Pager: [phone] [facility] [address] [place] [address], [address] [place] [id number] Office: [phone]
[2018-10-03] MEDS: Tamsulosin HCl 0.4 MG Capsule PO (08:49)
--- NOTE | 2018-10-03 08:51 | PCM.PROGNOTE ---
Patient Problems: Active and Suspected Problems Acute blood loss anemia (Acute) GI bleed (Acute) gastric mass NABEEL (acute kidney injury) (Acute) Lactic acidosis (Acute) Syncope (Acute) Hypovolemic shock (Acute) Subjective: Chief complaint: Follow-up after admission for hemorrhagic shock secondary to GI bleed, acute blood loss anemia, gastric mass and syncope. Patient seen and examined. No acute events overnight. He denied any specific complaints apart from discomfort because of the Fowler catheter. Denied abdominal pain, nausea or vomiting. He tolerated full liquid diet. His vital signs are stable. - Physical Exam General: Alert, Oriented x3, Cooperative, No apparent distress HEENT: Atraumatic, PERRLA, EOMI, Normocephalic Oral: Moist Mucosa, No Gingival or Mucosal Lesions/ Ulcerations Neck: Supple, No JVD, Negative Carotid Bruits, Trachea Midline, Thyroid Normal Size and Texture Lungs: Clear to auscultation, No rhonchi, No wheeze, No rales, Diminished Cardiovascular: Regular rate, Regular Rhythm, Normal S1, Normal S2 Abdomen: Bowel Sounds Present, Soft, Non Tender, Non-Distended, No Hepato-splenomegaly Extremities: No clubbing, No cyanosis, No edema Skin: No rashes, No breakdown Lymphatic: No Cervical, Supraclavicular, or Inguinal Adenopathy Neurological: Cranial nerves II-XII grossly intact, Neuro grossly intact Psych/Mental Status: Normal Affect, Appropriate, Alert and oriented to time, place, person, mood and affect Vital Signs Temp Pulse Resp BP Pulse Ox 98.7 F 82 18 130/68 H 94 10/03/18 05:17 10/03/18 06:58 10/03/18 05:17 10/03/18 05:17 10/03/18 08:14 Oxygen Flow Rate (L/min) 2 Oxygen Delivery Method Room Air Weight: 134 lb 4.184 oz Body Mass Index (BMI) 23.5 Intake and Output for Last 24 Hours 10/01/18 10/02/18 10/03/18 23:59 23:59 23:59 Intake Total 4446 / 4446 2648 / 2648 1192.3 / 1192.3 Output Total 2365 / 2365 2200 / 2200 2125 / 2125 Balance 2080 / 208 448 / 448 -932.7 / -932.7 Laboratory Tests Past 24 Hrs 10/03/18 10/03/18 06:00 06:00 WBC 6.5 RBC 3.29 L Hgb 9.5 L Hct 29.2 L MCV 88.8 MCH 28.9 MCHC 32.5 RDW 16.4 H RDW Differential 52.5 H Plt Count 135 L MPV 9.9 Immature Gran % (Auto) 0.300 Neut % (Auto) 66.5 Lymph % (Auto) 23.8 Gilchrist % (Auto) 7.7 Eos % (Auto) 1.5 Baso % (Auto) 0.2 Absolute Neuts (auto) 4.3 Absolute Lymphs (auto) 1.55 Total Counted Not Reportable Sodium 142 Potassium 3.1 L Chloride 109 H Carbon Dioxide 25.0 Anion Gap 8 BUN 11 Creatinine 1.05 Estim Creat Clear Calc 49.14 Est GFR (MDRD) Af Amer 88 Est GFR (MDRD) Non-Af 72 BUN/Creatinine Ratio 10.5 Glucose 129 H Calcium 7.5 L POC Glucose 10/03/18 10/03/18 10/02/18 05:13 00:26 18:16 POC Glucose 120 H 135 H 115 H 10/02/18 10/02/18 10/01/18 11:21 00:49 23:49 POC Glucose 100 87 77 Medical Necessity - Tobacco Use Smoking Status: Former smoker Tobacco Use: Non-smoker Assessment/Plan All Active Problems Gastric mass (Acute) Acute blood loss anemia (Acute) GI bleed (Acute) NABEEL (acute kidney injury) (Acute) Lactic acidosis (Acute) Syncope (Acute) Hypovolemic shock (Acute) This is a 78 years old male patient was sent from TCU down to the ED because of syncopal episode and black stools, found to have hemorrhagic shock secondary to GI bleed and acute blood loss anemia. Recently, patient was admitted at another hospital for pneumonia, had CT scan chest including the upper part of the abdomen that showed mass in his stomach. #1 hemorrhagic shock: Secondary to GI bleed. Blood pressure and heart rate has been stable, no tachycardia. Patient is on IV PPI and IV fluids. He received a total of 4 units of packed RBCs. He is tolerating full liquid diet. Plan: Resume oral medications, change Protonix to p.o., continue full liquid diet, repeat CBC tomorrow morning. #2 GI bleed/gastric mass: Status post upper EGD that revealed gastric mass, biopsy taken, nonbleeding duodenal ulcer with visible blood vessel, injected with epinephrine. Patient received blood transfusion with packed RBCs and platelets. Blood pressure and heart rate stabilized. Gastric mass biopsies pending. #3 acute blood loss anemia: Probably due to the gastric mass. Patient received a total of 4 units of packed RBCs, 2 units of fresh frozen plasma and 1 unit of platelets. Today's hemoglobin is 9.5 g/dL. Platelet count is 135,000. Plan to repeat CBC tomorrow morning. #5 hypertensive urgency: Blood pressure improved. Patient is on IV hydralazine as needed as well as labetalol IV. Plan to resume losartan and metoprolol. #6 syncopal episode: Attributed to vasovagal syncope due to hemorrhagic shock and blood loss anemia. #7 type 2 diabetes mellitus: Tolerating full liquid diet, blood sugar stable. Continue insulin sliding scale. #8 hypertension: Blood pressure stable at this time, plan as above. #9 hyperlipidemia: Resume statins. #10 GERD: He is on IV Protonix, will change it to oral. #11 DVT prophylaxis: SCDs. This note was generated with [employer] dictation software. It may contain incorrect words, spelling, and punctuation that were not noted in checking the note before signing. Code Visit Inpatient E&M: 91930 Subs Hosp L2
[2018-10-03] MEDS: Pantoprazole Sodium 40 MG Tablet PO ×2 (09:10→21:26)
[2018-10-03] MEDS: Losartan Potassium 50 MG Tablet PO (09:10)
[2018-10-03] MEDS: Metoprolol(XL)Succ 50 MG Tablet PO (09:10)
[2018-10-03 11:46] LABS: Bedside Glucose 128 mg/dL (70-110)
[2018-10-03 16:45] LABS: Bedside Glucose 149 mg/dL (70-110)
[2018-10-03] MEDS: Mirtazapine 15 MG Tablet 7.5 MG PO (21:26)
[2018-10-03 21:30] LABS: Bedside Glucose 109 mg/dL (70-110)
[2018-10-04] VITALS (7 sets, daily range): BP systolic 119–124; BP diastolic 56–75; PULSE 88–100; RESP 16–18; TEMP 36.9–37.2; O2SAT 93–96
[2018-10-04 07:05] LABS: Bedside Glucose 108 mg/dL (70-110)
[2018-10-04] MEDS: Ipratropium/Albuterol Sulfate 3 ML AMPUL.NEB INHALATION (07:17)
[2018-10-04 08:00] LABS: Absolute Lymphocyte Count 1.82 X10^3/ul (0.83-4.51); Absolute Neutrophil Count 3.6 X10^3/uL (2.0-7.7); Basophil# 0.01 X10^3/uL; Basophil% 0.2 % (0-1); Eosinophil# 0.13 X10^3/uL; Eosinophils% 2.1 % (0-5); Hematocrit 30.3 % (40-54); Hemoglobin 9.7 g/dl (13.0-16.5); Lymphocyte # 1.82 X10^3/ul (4.0); Lymphocyte % 29.4 % (19-41); Mean Corpuscular Volume 90.4 fL (80-94); Mean Platelet Vol. 10.3 fl (6.2-12.0); Monocyte# 0.58 X10^3/uL; Monocyte% 9.4 % (0-10); Neutrophil # 3.63 X10^3/uL (2.7-7.7); Neutrophil % 58.6 % (47-70); Platelet Count 160 K/mm3 (150-450); RBC Distribution Width CV 16.6 % (11.6-14.6); RBC Distribution Width SD 53.7 fl (35.1-43.9); Red Blood Count 3.35 M/mm3 (4.6-6.2); White Blood Count 6.2 K/mm3 (4.4-11.0)
[2018-10-04 08:02] LABS: POSITIVE COUNT NO; POSITIVE DIFFERENTIAL NO; POSITIVE MORPHOLOGY NO
[2018-10-04] MEDS: Tamsulosin HCl 0.4 MG Capsule PO (09:38)
[2018-10-04] MEDS: Pantoprazole Sodium 40 MG Tablet PO (11:06)
[2018-10-04] MEDS: Metoprolol(XL)Succ 50 MG Tablet PO (11:06)
[2018-10-04] MEDS: Losartan Potassium 50 MG Tablet PO (11:06)
[2018-10-04] MEDS: Insulin Lispro 100 UNIT/ML INSULN.PEN SQ (11:45)
--- NOTE | 2018-10-04 11:48 | PCM.TXEXTCAR ---
- Diet 10/04/18 10:49 Diet: Regular Diet Is pt able to select menu?: No - Routine Orders/Code Status Suppository Type: Dulcolax 10mg Suppository Frequency: Daily PRN Routine Lab Work: CBC - 3 days Code Status: DNRCC-A - Wound(s) Coccyx Wound Type: Pressure Injury - Therapies Physical Therapy: Eval and Treat Occupational Therapy: Eval and Treat - Problem/Diagnosis (1) Hypovolemic shock Status: Acute Current Visit: Yes (2) GI bleed Status: Acute Comment: gastric mass Current Visit: Yes (3) Acute blood loss anemia Status: Acute Current Visit: Yes (4) Duodenal ulcer Status: Acute Current Visit: Yes (5) Lactic acidosis Status: Acute Current Visit: Yes (6) Syncope Status: Acute Current Visit: Yes (7) Hypertensive urgency Status: Acute Current Visit: Yes (8) Gastric mass Status: Chronic Current Visit: No (9) Bronchiectasis Status: Chronic Current Visit: No (10) Chronic obstructive pulmonary disease Status: Chronic Current Visit: No (11) Diabetes mellitus Status: Chronic Current Visit: No (12) GERD (gastroesophageal reflux disease) Status: Chronic Current Visit: No (13) Hyperlipidemia Status: Chronic Current Visit: No (14) Hypertension Status: Chronic Current Visit: No - Allergies/Procedures Done in Hospital Allergies/Adverse Reactions: Allergies Iodinated Contrast- Oral and IV Dye [CONTRASTS] Adverse Reaction (Verified 09/30/18 16:13) Unknown NSAIDS (Non-Steroidal Anti-Inflamma Adverse Reaction (Verified 09/30/18 16:13) GI bleed Procedures: Blood transfusion, EGD - Type of Care/Length of Stay Estimated LOS: Convalescent Care Less Than 30 days Type of Care Needed: Skilled Rehab Potential: Fair Prognosis: Fair - Additional Orders/Day of Discharge Day of Discharge: 10/04/18 - Dietary and Speech Recommendations Dietitian Recommendations/Changes: Consider parenteral nutrition support if NPO continues with contraindication for PO/enteral nutrition. As medically able, rec diet as tolerated to Transitional/low residue, cardiac, 1800 calorie. - Follow Up Care Primary Care Physician: Care Physician,No Primary [Primary Care Provider] - Please follow up with your Primary Care Physician in: 1-2 weeks Please Follow Up With: Rusty Vargas MD When: 1 week
[2018-10-04 12:31] LABS: Bedside Glucose 230 mg/dL (70-110)
--- NOTE | 2018-10-04 12:54 | CASEMGMT ---
Patient is ready for d/c back to TCU. SW spoke with Madyson in TCU and she can take patient back today. Physician spoke with patient's daughter and let her know patient will be going back to TCU today. Plan: d/c back to TCU under skilled level of care. Tresa PATTERSON MSW
--- NOTE | 2018-10-04 14:01 | NURSING ---
REPORT GIVEN TO [facility] AT [facility]-
--- NOTE | 2018-10-04 14:44 | DS.PCM_ITS ---
Discharge Date and Diagnosis - Problem List Patient Problems: Active and Suspected Problems Hypertensive urgency (Acute) Duodenal ulcer (Acute) Acute blood loss anemia (Acute) GI bleed (Acute) gastric mass NABEEL (acute kidney injury) (Acute) Lactic acidosis (Acute) Syncope (Acute) Hypovolemic shock (Acute) Date of Admission: 09/30/18 Date of Discharge: 10/04/18 - Primary Discharge Diagnosis Active and Suspected Problems Acute blood loss anemia secondary to gastric mass, duodenal ulcers Hemorrhagic shock secondary to above Hypertensive urgency Syncope secondary to anemia Type 2 diabetes mellitus Hypertension Hyperlipidemia GERD - Secondary Discharge Diagnosis Chronic Problems Chronic obstructive pulmonary disease (Chronic) Bronchiectasis (Chronic) Gastric mass (Chronic) Diabetes mellitus (Chronic) Hypertension (Chronic) Hyperlipidemia (Chronic) GERD (gastroesophageal reflux disease) (Chronic) Hospital Course and Treatment Imaging Results: RAD/CXR for Line Placement IMPRESSION: Right central venous line in a grossly satisfactory position. Left pleural effusion, cannot exclude associated left basilar atelectasis and/or pneumonia. Persistent right basilar opacity may be secondary to underlying atelectasis and/or pneumonia. Consults: [place] - clean energy policy analyst [place] - general surgery Operations: None Procedures: EGD Summary of Care Provided: Hospital course: The patient is a 78 year old M with past medical history as above who was sent from the TCU after experiencing a syncopal episode and black stools to the emergency room, he was found to have hemorrhagic shock and anemia suspected secondary to upper GI bleed. He had recently had a gastric mass found on a CT scan during a prior hospitalization for pneumonia. The patient was admitted to the ICU and given 4 units of packed red blood cells. General surgery was consulted and performed an EGD in the ICU which found a gastric mass which was biopsied and a duodenal ulcer with a vein present that was injected with epinephrine. He was placed on IV PPI which was transitioned to p.o. twice daily Protonix. He remained stable and was transitioned to the PCU where he was changed to oral Protonix and had his diet gradually advanced. His hemoglobin remained stable and he had no further issues with bleeding, blood loss, or hypotension. He did have hypertensive urgency following the EGD and was given as needed medications such as labetalol and hydralazine which were eventually discontinued without further need for additional oral medications at this time. He was [facility] to [facility] the TCU, in stable condition with the addition of Protonix twice daily at discharge. He will need to follow-up with Dr. Vargas in 1 week and with his PCP in 1-2 weeks. This patient was seen by Jr Nelson PA-C under the supervision of Doctor Julio. [] Patient Problems: Active and Suspected Problems Hypertensive urgency (Acute) Duodenal ulcer (Acute) Acute blood loss anemia (Acute) GI bleed (Acute) gastric mass NABEEL (acute kidney injury) (Acute) Lactic acidosis (Acute) Syncope (Acute) Hypovolemic shock (Acute) - Physical Exam General: Alert, Oriented x3, Cooperative HEENT: Atraumatic, PERRLA, EOMI, Normocephalic Neck: Supple, No JVD, Negative Carotid Bruits Lungs: Clear to auscultation, Normal air movement Cardiovascular: Regular rate, No murmurs Abdomen: Bowel Sounds Present, Soft, Non Tender Extremities: No edema, Capillary Refill Less than 3 Seconds Skin: No rashes, No breakdown Musculoskeletal: No Tenderness to Palpation of Joints or Extremities Neurological: Cranial nerves II-XII grossly intact Psych/Mental Status: Normal Affect, Appropriate, Alert and oriented to time, place, person, mood and affect Vital Signs Temp Pulse Resp BP Pulse Ox 98.9 F 95 16 119/56 L 95 10/04/18 11:08 10/04/18 12:39 10/04/18 11:08 10/04/18 11:08 10/04/18 11:08 Oxygen Flow Rate (L/min) 2 Oxygen Delivery Method Room Air Weight: 138 lb 3.677 oz Body Mass Index (BMI) 23.5 Intake and Output for Last 24 Hours 10/02/18 10/03/18 10/04/18 23:59 23:59 23:59 Intake Total 2648 / 2648 1843.3 / 1843.3 490 / 490 Output Total 2200 / 2200 2605 / 2605 100 / 100 Balance 448 / 448 -761.7 / -761.7 390 / 390 Laboratory Tests Past 24 Hrs 10/04/18 04:45 WBC 6.2 RBC 3.35 L Hgb 9.7 L Hct 30.3 L MCV 90.4 MCH 29.0 MCHC 32.0 RDW 16.6 H RDW Differential 53.7 H Plt Count 160 MPV 10.3 Immature Gran % (Auto) 0.300 Neut % (Auto) 58.6 Lymph % (Auto) 29.4 Garland % (Auto) 9.4 Eos % (Auto) 2.1 Baso % (Auto) 0.2 Absolute Neuts (auto) 3.6 Absolute Lymphs (auto) 1.82 Total Counted Not Reportable POC Glucose 10/04/18 10/04/18 10/03/18 11:41 06:54 21:24 POC Glucose 230 H 108 109 10/03/18 16:20 POC Glucose 149 H Discharge Diet: No Restrictions Discharge Activity: Return to Normal Activity Home Medications: Medications to take at Discharge Ipratropium/Albuterol Sulfate [Duoneb] 3 ml INHALATION Q2H PRN PRN 09/20/18 Losartan Potassium [Cozaar] 50 mg PO DAILY 09/20/18 Metformin HCl 500 mg PO DAILY 09/20/18 Metoprolol(XL)Succ [Toprol Xl (Beta Radha)] 50 mg PO DAILY 09/20/18 Acetaminophen [Tylenol] 500 mg PO Q6H PRN PRN 09/30/18 Albuterol Aerosols [Ventolin Aerosols] 2.5 mg INHALATION Q2H PRN PRN 09/30/18 Bisacodyl [Dulcolax] 10 mg PO Q6H PRN PRN 09/30/18 Menthol/Lanolin/Calamine/Znox [Calmoseptine Ointment] 1 applic TOPICAL BID 09/30/18 Mineral Oil/Petrolatum,White [Eucerin] 1 applic TOPICAL DAILY PRN PRN 09/30/18 Mirtazapine [Remeron] 7.5 mg PO QHS 09/30/18 Polyethylene Glycol 3350 [Miralax] 17 gm PO DAILY 09/30/18 Tamsulosin HCl 0.4 mg PO DAILY 09/30/18 Pantoprazole Sodium [Protonix] 40 mg PO BID #0 tablet 10/04/18 Primary Care Physician: Care Physician,No Primary [Primary Care Provider] - Please follow up with your Primary Care Physician in: 1-2 weeks Please Follow Up With: Rusty Vargas MD When: 1 week Disposition: [facility] facility Minutes spent on discharge:: 35 Patient Condition:: Stable Medical Necessity - Tobacco Use Smoking Status: Former smoker Tobacco Use: Non-smoker Meaningful Use Info Meaningful Use Diagnoses (Choose all that apply): None applicable
== END 2018-10-04 16:02 | disposition skilled nursing facility (03) | DRG 377 ==
LOC: ED 16:47 → ICU 17:51 → PCU 10-02 11:39
PROVIDERS: Hospitalist; Internal Medicine Critical Care Medicine; Surgery; Emergency Provider Emergency Medicine; Visit Provider Internal Medicine
PROC: 0DJ08ZZ Inspection of Upper Intestinal Tract, Via Natural or Artificial Opening Endoscopic (ICD-10-PCS; CPT 43235; principal; 2018-10-01 02:00)
DX: K26.4 Chronic or unspecified duodenal ulcer with hemorrhage (principal); R57.8 Other shock; D62 Acute posthemorrhagic anemia; N17.9 Acute kidney failure, unspecified; E87.2 Acidosis; E11.9 Type 2 diabetes mellitus without complications; K31.9 Disease of stomach and duodenum, unspecified; Z79.84 Long term (current) use of oral hypoglycemic drugs; E78.5 Hyperlipidemia, unspecified; I16.0 Hypertensive urgency; K21.9 Gastro-esophageal reflux disease without esophagitis; I10 Essential (primary) hypertension; J47.9 Bronchiectasis, uncomplicated; Z87.891 Personal history of nicotine dependence; Z79.899 Other long term (current) drug therapy
CPT/HCPCS: 36600; 71045; 80048; 82803; 82962; 83605; 83735; 84100; 85014; 85018; 85025; 85610; 85730; 86644; 86850; 86900; 86920; 86922; 86965; 88305; 88313; 88341; 88342; 93005; 94640; 97162; 97165; 97530; 97535; 99283; J7030; J7040; J7120; P9016; P9017; P9035; A4216; C1751; J3490; J7799

== ENCOUNTER 2018-10-04 16:18 | Inpatient (IN) | payer MEDICARE, OTHER, SELFPAY ==
[2018-10-04 16:18] VITALS: BMI 22.9
[2018-10-04 16:24] VITALS: BP 133/46; PULSE 104; RESP 18; TEMP 37.2; O2SAT 96; BMI 20.3
--- NOTE | 2018-10-04 16:24 | NURSING ---
pt arrived from [facility] via bed at 1624
[2018-10-04] MEDS: Pantoprazole Sodium 40 MG Tablet PO (17:33)
[2018-10-04] MEDS: Menthol/Lanolin/Calamine/Znox 113 GM Tube 1 APPLIC TOPICAL (17:34)
[2018-10-04] MEDS: Mirtazapine 15 MG Tablet 7.5 MG PO (20:12)
--- NOTE | 2018-10-04 20:23 | PCM.HP.STD ---
Problem List (1) Upper gastrointestinal bleed Status: Acute (2) Multiple falls Status: Chronic (3) Debility Status: Chronic (4) Healthcare-associated pneumonia Status: Chronic (5) Intra-abdominal lymphadenopathy Status: Chronic (6) Duodenal ulcer Status: Acute (7) Chronic obstructive pulmonary disease Status: Chronic (8) Bronchiectasis Status: Chronic (9) Gastric mass Status: Chronic (10) Diabetes mellitus Status: Chronic (11) Hypertension Status: Chronic (12) Hyperlipidemia Status: Chronic (13) GERD (gastroesophageal reflux disease) Status: Chronic (14) Syncope Status: Acute History of Present Illness Date of Admission: 10/04/18 Chief Complaint: Here for rehabilitation, strengthening, prior to discharge home with spouse. The patient is a 78 year old Male with below past medical history TCU resident after hospitalization at [facility] for healthcare associated pneumonia, urinary tract infection, debility. 09/30/2018 resident unresponsive, hypotensive, large bowel movement of melanotic stool, Rapid Response Team called. Resident transferred to [facility] Emergency Department for evaluation and admission to hospital. Patient found to have hypotensive shock due to acute anemia from upper gastrointestinal bleeding. 09/30/2018 Admit to ICU Patient was transfused 4 units Packed Red Blood Cells, 2 units Fresh Frozen Plasma, [address] Vargas consulted and performed EGD with biopsy of gastric mass, injected duodenal ulcer with vein with epinephrine. Patient treated with IV Protonix twice daily, then transitioned to PO Protonix twice daily. Hemoglobin stable, diet advanced. Hypertensive urgency controlled with as needed doses of Labetalol, Hydralazine, both of which have been discontinued. Gastric mass biopsy results pending. 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 10/04/2018 Admit to TCU with debility, here for rehabilitation, strengthening, prior to disposition determination. Resident would prefer to go home afterwards, but his spouse states she is unable to care for him at home. He maybe able to go home with 24 hour private duty aides. 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 If biopsy confirmed will discuss with resident whether he would like to pursue treatment, consult [facility] oncology at that time. Past Medical History Past Medical History (Chronic Problems): Chronic Problems Multiple falls (Chronic) Debility (Chronic) Healthcare-associated pneumonia (Chronic) Intra-abdominal lymphadenopathy (Chronic) Chronic obstructive pulmonary disease (Chronic) Bronchiectasis (Chronic) Gastric mass (Chronic) Diabetes mellitus (Chronic) Hypertension (Chronic) Hyperlipidemia (Chronic) GERD (gastroesophageal reflux disease) (Chronic) Allergies Iodinated Contrast- Oral and IV Dye [CONTRASTS] Adverse Reaction (Verified 09/30/18 16:13) Unknown NSAIDS (Non-Steroidal Anti-Inflamma Adverse Reaction (Verified 09/30/18 16:13) GI bleed Home Medications: Ambulatory Orders Medication Instructions Recorded Ipratropium/Albuterol Sulfate 3 ml INHALATION Q2H PRN PRN 09/20/18 [Duoneb] Losartan Potassium [Cozaar] 50 mg PO DAILY 09/20/18 Metformin HCl 500 mg PO DAILY 09/20/18 Metoprolol(XL)Succ [Toprol Xl 50 mg PO DAILY 09/20/18 (Beta Radha)] Acetaminophen [Tylenol] 500 mg PO Q6H PRN PRN 09/30/18 Albuterol Aerosols [Ventolin 2.5 mg INHALATION Q2H PRN PRN 09/30/18 Aerosols] Bisacodyl [Dulcolax] 10 mg PO Q6H PRN PRN 09/30/18 Menthol/Lanolin/Calamine/Znox 1 applic TOPICAL BID 09/30/18 [Calmoseptine Ointment] Mineral Oil/Petrolatum,White 1 applic TOPICAL DAILY PRN PRN 09/30/18 [Eucerin] Mirtazapine [Remeron] 7.5 mg PO QHS 09/30/18 Polyethylene Glycol 3350 [Miralax] 17 gm PO DAILY 09/30/18 Tamsulosin HCl 0.4 mg PO DAILY 09/30/18 Pantoprazole Sodium [Protonix] 40 mg PO BID 10/04/18 Surgical History: - - Left heart cath, EGD with cauterization gastric ulcer, EGD with gastric biopsy, epinephrine injection duodenal ulcer. Psychiatric History: No pertinent psych hx Lives: Spouse/ Significant Other Smoking Status: Former smoker - 30 pack year smoking history. Tobacco Use: Non-smoker Alcohol: None Drugs: None - *Family History Maternal History Items: No pertinent history Paternal History Items: No pertinent history Review of Systems Constitutional: Denies: Chills, Fever, Weight Change HEENT: Denies: Head Aches, Sinus Congestion, Sinus Drainage Cardiovascular: Denies: Chest Pain, Palpitations Respiratory: Denies: Cough, Shortness of breath at rest, Sputum production Gastrointestinal: Denies: Abdominal Pain, Nausea, Vomiting Genitourinary: Denies: Dysuria Musculoskeletal: Denies: Joint Pain, Joint Tenderness Skin: Denies: Rash, Wounds Neurological: Denies: Numbness, Tingling, Focal weakness Psychiatric: Denies: Anxiety, Depression, Homicidal Ideations, Suicidal Ideations Hematologic/ Lymphatic: Denies: Easy Bruising, Easy Bleeding VTE Information - Inpt Only VTE Present on Admission: No VTE Mechan Device Prophylaxis: Knee High LAUREL Hose VTE Pharm Prophylaxis ordered?: No Reason prophylaxis not ordered:: Medical Contraindication Patient Problems: Active and Suspected Problems Upper gastrointestinal bleed (Acute) - Physical Exam General: Alert, Oriented x3, Cooperative HEENT: Atraumatic, PERRLA, EOMI, Normocephalic Neck: Supple, No JVD, Negative Carotid Bruits Lungs: Clear to auscultation, Normal air movement Cardiovascular: Regular rate, No murmurs Abdomen: Bowel Sounds Present, Soft, Non Tender Extremities: No edema, Capillary Refill Less than 3 Seconds Skin: No rashes, No breakdown Musculoskeletal: No Tenderness to Palpation of Joints or Extremities Neurological: Cranial nerves II-XII grossly intact Psych/Mental Status: Normal Affect, Appropriate Vital Signs Temp Pulse Resp BP Pulse Ox 98.9 F 104 H 18 133/46 H 96 10/04/18 16:24 10/04/18 16:24 10/04/18 16:24 10/04/18 16:24 10/04/18 16:24 Oxygen Delivery Method Room Air Weight: 58.876 kg Body Mass Index (BMI) 20.3 Intake and Output for Last 24 Hours 10/02/18 10/03/18 10/04/18 23:59 23:59 23:59 Intake Total 330 / 330 Balance 330 / 330 Assessment/Plan All Active Problems Hypertensive urgency (Acute) Duodenal ulcer (Acute) Upper gastrointestinal bleed (Acute) Acute blood loss anemia (Acute) GI bleed (Acute) NABEEL (acute kidney injury) (Acute) Lactic acidosis (Acute) Syncope (Acute) Hypovolemic shock (Acute) 78 year old male with below past medical history significant for gastric mass hospitalized for hypovolumic shock secondary to upper gastrointestinal bleed from duodenal ulcer, admitted to TCU with debility, here for rehabilitation, strengthening, prior to disposition determination. Debility - PT/OT. Pain - Tylenol 1000MG Q6H PRN mild pain. Bowel - Miralax 17GM daily, Senna/colace 1 tablet BID, Dulcolax 10MG PO daily PRN. Pneumonia vaccination - Administer Prevnar 13 and/or Pneumovax 23 as necessary. DVT prophylaxis - contraindicated due to UGIB. COPD - Duoneb 3ML Q2H PRN. Albuterol 2.5MG Q2H PRN. Hypertension - Metoprolol succinate 50MG daily, Losartan 50MG daily. Skin irritation - Calmoseptine BID buttocks, Eucerin daily PRN dry skin. Diabetes Mellitus II - Metformin 500MG daily. Duodenal ulcer - Pantoprazole 40MG BID. BPH - Tamsulosin 0.4MG daily. 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
--- NOTE | 2018-10-04 20:33 | HP.PCM_ITS ---
Problem List (1) Upper gastrointestinal bleed Status: Acute (2) Multiple falls Status: Chronic (3) Debility Status: Chronic (4) Healthcare-associated pneumonia Status: Chronic (5) Intra-abdominal lymphadenopathy Status: Chronic (6) Duodenal ulcer Status: Acute (7) Chronic obstructive pulmonary disease Status: Chronic (8) Bronchiectasis Status: Chronic (9) Gastric mass Status: Chronic (10) Diabetes mellitus Status: Chronic (11) Hypertension Status: Chronic (12) Hyperlipidemia Status: Chronic (13) GERD (gastroesophageal reflux disease) Status: Chronic (14) Syncope Status: Acute History of Present Illness Date of Admission: 10/04/18 Chief Complaint: Here for rehabilitation, strengthening, prior to discharge home with spouse. The patient is a 78 year old Male with below past medical history TCU resident after hospitalization at [facility] for healthcare associated pneumonia, urinary tract infection, debility. 09/30/2018 resident unresponsive, hypotensive, large bowel movement of melanotic stool, Rapid Response Team called. Resident transferred to [facility] Emergency Department for evaluation and admission to hospital. Patient found to have hypotensive shock due to acute anemia from upper gastrointestinal bleeding. 09/30/2018 Admit to ICU Patient was transfused 4 units Packed Red Blood Cells, 2 units Fresh Frozen Plasma, [address] Vargas consulted and performed EGD with biopsy of gastric mass, injected duodenal ulcer with vein with epinephrine. Patient treated with IV Protonix twice daily, then transitioned to PO Protonix twice daily. Hemoglobin stable, diet advanced. Hypertensive urgency controlled with as needed doses of Labetalol, Hydralazine, both of which have been discontinued. Gastric mass biopsy results pending. 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 10/04/2018 Admit to TCU with debility, here for rehabilitation, strengthening, prior to disposition determination. Resident would prefer to go home afterwards, but his spouse states she is unable to care for him at home. He maybe able to go home with 24 hour private duty aides. 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 If biopsy confirmed will discuss with resident whether he would like to pursue treatment, consult [facility] oncology at that time. Past Medical History Past Medical History (Chronic Problems): Chronic Problems Multiple falls (Chronic) Debility (Chronic) Healthcare-associated pneumonia (Chronic) Intra-abdominal lymphadenopathy (Chronic) Chronic obstructive pulmonary disease (Chronic) Bronchiectasis (Chronic) Gastric mass (Chronic) Diabetes mellitus (Chronic) Hypertension (Chronic) Hyperlipidemia (Chronic) GERD (gastroesophageal reflux disease) (Chronic) Allergies Iodinated Contrast- Oral and IV Dye [CONTRASTS] Adverse Reaction (Verified 09/30/18 16:13) Unknown NSAIDS (Non-Steroidal Anti-Inflamma Adverse Reaction (Verified 09/30/18 16:13) GI bleed Home Medications: Ambulatory Orders Medication Instructions Recorded Ipratropium/Albuterol Sulfate 3 ml INHALATION Q2H PRN PRN 09/20/18 [Duoneb] Losartan Potassium [Cozaar] 50 mg PO DAILY 09/20/18 Metformin HCl 500 mg PO DAILY 09/20/18 Metoprolol(XL)Succ [Toprol Xl 50 mg PO DAILY 09/20/18 (Beta Radha)] Acetaminophen [Tylenol] 500 mg PO Q6H PRN PRN 09/30/18 Albuterol Aerosols [Ventolin 2.5 mg INHALATION Q2H PRN PRN 09/30/18 Aerosols] Bisacodyl [Dulcolax] 10 mg PO Q6H PRN PRN 09/30/18 Menthol/Lanolin/Calamine/Znox 1 applic TOPICAL BID 09/30/18 [Calmoseptine Ointment] Mineral Oil/Petrolatum,White 1 applic TOPICAL DAILY PRN PRN 09/30/18 [Eucerin] Mirtazapine [Remeron] 7.5 mg PO QHS 09/30/18 Polyethylene Glycol 3350 [Miralax] 17 gm PO DAILY 09/30/18 Tamsulosin HCl 0.4 mg PO DAILY 09/30/18 Pantoprazole Sodium [Protonix] 40 mg PO BID 10/04/18 Surgical History: - - Left heart cath, EGD with cauterization gastric ulcer, EGD with gastric biopsy, epinephrine injection duodenal ulcer. Psychiatric History: No pertinent psych hx Lives: Spouse/ Significant Other Smoking Status: Former smoker - 30 pack year smoking history. Tobacco Use: Non-smoker Alcohol: None Drugs: None - *Family History Maternal History Items: No pertinent history Paternal History Items: No pertinent history Review of Systems Constitutional: Denies: Chills, Fever, Weight Change HEENT: Denies: Head Aches, Sinus Congestion, Sinus Drainage Cardiovascular: Denies: Chest Pain, Palpitations Respiratory: Denies: Cough, Shortness of breath at rest, Sputum production Gastrointestinal: Denies: Abdominal Pain, Nausea, Vomiting Genitourinary: Denies: Dysuria Musculoskeletal: Denies: Joint Pain, Joint Tenderness Skin: Denies: Rash, Wounds Neurological: Denies: Numbness, Tingling, Focal weakness Psychiatric: Denies: Anxiety, Depression, Homicidal Ideations, Suicidal Ideations Hematologic/ Lymphatic: Denies: Easy Bruising, Easy Bleeding VTE Information - Inpt Only VTE Present on Admission: No VTE Mechan Device Prophylaxis: Knee High LAUREL Hose VTE Pharm Prophylaxis ordered?: No Reason prophylaxis not ordered:: Medical Contraindication Patient Problems: Active and Suspected Problems Upper gastrointestinal bleed (Acute) - Physical Exam General: Alert, Oriented x3, Cooperative HEENT: Atraumatic, PERRLA, EOMI, Normocephalic Neck: Supple, No JVD, Negative Carotid Bruits Lungs: Clear to auscultation, Normal air movement Cardiovascular: Regular rate, No murmurs Abdomen: Bowel Sounds Present, Soft, Non Tender Extremities: No edema, Capillary Refill Less than 3 Seconds Skin: No rashes, No breakdown Musculoskeletal: No Tenderness to Palpation of Joints or Extremities Neurological: Cranial nerves II-XII grossly intact Psych/Mental Status: Normal Affect, Appropriate Vital Signs Temp Pulse Resp BP Pulse Ox 98.9 F 104 H 18 133/46 H 96 10/04/18 16:24 10/04/18 16:24 10/04/18 16:24 10/04/18 16:24 10/04/18 16:24 Oxygen Delivery Method Room Air Weight: 58.876 kg Body Mass Index (BMI) 20.3 Intake and Output for Last 24 Hours 10/02/18 10/03/18 10/04/18 23:59 23:59 23:59 Intake Total 330 / 330 Balance 330 / 330 Assessment/Plan All Active Problems Hypertensive urgency (Acute) Duodenal ulcer (Acute) Upper gastrointestinal bleed (Acute) Acute blood loss anemia (Acute) GI bleed (Acute) NABEEL (acute kidney injury) (Acute) Lactic acidosis (Acute) Syncope (Acute) Hypovolemic shock (Acute) 78 year old male with below past medical history significant for gastric mass hospitalized for hypovolumic shock secondary to upper gastrointestinal bleed from duodenal ulcer, admitted to TCU with debility, here for rehabilitation, strengthening, prior to disposition determination. * Debility - PT/OT. * Pain - Tylenol 1000MG Q6H PRN mild pain. * Bowel - Miralax 17GM daily, Senna/colace 1 tablet BID, Dulcolax 10MG PO daily PRN. * Pneumonia vaccination - Administer Prevnar 13 and/or Pneumovax 23 as necessary. * DVT prophylaxis - contraindicated due to UGIB. * COPD - Duoneb 3ML Q2H PRN. Albuterol 2.5MG Q2H PRN. * Hypertension - Metoprolol succinate 50MG daily, Losartan 50MG daily. * Skin irritation - Calmoseptine BID buttocks, Eucerin daily PRN dry skin. * Diabetes Mellitus II - Metformin 500MG daily. * Duodenal ulcer - Pantoprazole 40MG BID. * BPH - Tamsulosin 0.4MG daily. 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
[2018-10-04 22:36] LABS: Bedside Glucose 150 mg/dL (70-110)
[2018-10-05] MEDS: Losartan Potassium 50 MG Tablet PO (05:15)
[2018-10-05] MEDS: Menthol/Lanolin/Calamine/Znox 113 GM Tube 1 APPLIC TOPICAL ×2 (05:15→17:40)
[2018-10-05] MEDS: Pantoprazole Sodium 40 MG Tablet PO ×2 (05:16→17:38)
[2018-10-05] MEDS: Polyethylene Glycol 3350 17 GM PACKET PO (05:16)
[2018-10-05] MEDS: Tamsulosin HCl 0.4 MG Capsule PO (05:16)
[2018-10-05] MEDS: Senna/Docusate Sodium 1 Tablet PO ×2 (05:17→17:38)
[2018-10-05] MEDS: Bisacodyl 5 MG Tablet 10 MG PO (05:19)
[2018-10-05 05:23] VITALS: BP 147/79; PULSE 90
[2018-10-05] MEDS: Metoprolol(XL)Succ 50 MG Tablet PO (05:23)
[2018-10-05 05:37] LABS: Absolute Lymphocyte Count 1.95 X10^3/ul (0.83-4.51); Absolute Neutrophil Count 2.8 X10^3/uL (2.0-7.7); Basophil# 0.01 X10^3/uL; Basophil% 0.2 % (0-1); Eosinophil# 0.17 X10^3/uL; Eosinophils% 3.1 % (0-5); Hematocrit 29.8 % (40-54); Hemoglobin 9.7 g/dl (13.0-16.5); Lymphocyte # 1.95 X10^3/ul (4.0); Lymphocyte % 35.1 % (19-41); Mean Corp Hgb Conc 32.6 g/gl (32-36); Mean Corpuscular Hgb 29.7 pg (27.0-32.0); Mean Corpuscular Volume 91.1 fL (80-94); Mean Platelet Vol. 10.1 fl (6.2-12.0); Monocyte# 0.57 X10^3/uL; Monocyte% 10.3 % (0-10); Neutrophil # 2.84 X10^3/uL (2.7-7.7); Neutrophil % 50.9 % (47-70); Platelet Count 194 K/mm3 (150-450); RBC Distribution Width CV 16.6 % (11.6-14.6); RBC Distribution Width SD 52.6 fl (35.1-43.9); Red Blood Count 3.27 M/mm3 (4.6-6.2); White Blood Count 5.6 K/mm3 (4.4-11.0)
[2018-10-05 05:55] LABS: POSITIVE COUNT NO; POSITIVE DIFFERENTIAL NO; POSITIVE MORPHOLOGY NO
[2018-10-05 05:59] LABS: Anion Gap 8 (5-15); BUN 14 mg/dL (7-18); BUN/Creat Ratio 12.4 RATIO (10-20); Calcium,Total 7.9 mg/dL (8.5-10.1); Chloride 110 mmol/L (98-107); Creatinine, Serum 1.13 mg/dL (0.70-1.30); EST Glomerular Filtration Rate 67 mL/min (>60); Est Glom Filt Rate - Afr Amer 80 mL/min (>60); Estimated Creatinine Clearance 44.14 ml/min; Glucose 116 mg/dL (74-106); Potassium 3.9 mmol/L (3.5-5.1); Sodium Level 142 mmol/L (136-145)
[2018-10-05 06:31] LABS: Bedside Glucose 116 mg/dL (70-110)
[2018-10-05] MEDS: Iron Polysaccharide Complex 150 MG CAPSULE PO (08:34)
[2018-10-05] MEDS: Ipratropium/Albuterol Sulfate 3 ML AMPUL.NEB INHALATION (09:27)
[2018-10-05 09:38] VITALS: PULSE 99; RESP 18; O2SAT 95
[2018-10-05 10:58] LABS: LDH 281 U/L (87-241)
[2018-10-05 11:45] LABS: Bedside Glucose 196 mg/dL (70-110)
[2018-10-05 13:35] VITALS: PULSE 98; RESP 16; O2SAT 98
--- NOTE | 2018-10-05 14:17 | NURSING ---
KEEP ASKING PT IF HE WOULD LIKE SOME PAIN MEDS FOR HIS PAIN ON BOTTOM AND PT STATES NO.
--- NOTE | 2018-10-05 14:41 | CHAPLAIN ---
Type of Pastoral Visit _x__ Initial Visit ___ Follow-up Visit ___ On-call Visit ___ General Patient Visit ___ Spiritual Assessment ___ Family Conference ___ Bereavement ___ Rapid Response ___ Code Blue ___ Other (describe below) Pastoral Care Referral From _x__ Patient ___ Family ___ Nurse ___ Physician ___ Friction Paint Machine Tender ___ Geothermal Powerplant Mechanic Helper ___ Other (describe below) Sacrament/Intervention _x__ Active listening ___ Anointing ___ Yarsani ___ Bereavement ___ Communion _x__ Estephania exploration ___ ___ Life review _x__ Prayer ___ Reconciliation ___ Sacrament of Sick _x__ Supportive presence ___ Wedding ___ Other (describe below) Pastoral Comments gave time and presence for patient to report on his current condition and the status of future treatments; pt says he has turned down surgery and chemotherapy and is coming to terms of peace with his situation; pt accepts that there are few answers and certainties in his condition; pt has a bahai in [place] of [employer] and has the support of pigment furnace tender; pt daughter is local here; pt also has and son that are supportive; pt welcomes prayer and spiritual support of voip technician in the future as needed
--- NOTE | 2018-10-05 14:59 | PCM.PN.RX ---
<Farhat Garcia D - Last Filed: 10/05/18 14:59> Progress Note - Pharmacy Subjective: TCU Admission Objective: Allergies Iodinated Contrast- Oral and IV Dye [CONTRASTS] Adverse Reaction (Verified 09/30/18 16:13) Unknown NSAIDS (Non-Steroidal Anti-Inflamma Adverse Reaction (Verified 09/30/18 16:13) GI bleed Current Medications Generic Name Dose Route Start Last Admin Trade Name Freq PRN Reason Stop Dose Admin Acetaminophen 1,000 mg 10/04/18 20:45 Tylenol PO Q6H PRN PRN MILD PAIN (-11/28) Albuterol Sulfate 2.5 mg 10/04/18 16:28 Ventolin Aerosols INHALATION Q2H PRN PRN SOB &/OR WHEEZING Albuterol/Ipratropium 3 ml 10/04/18 16:28 10/05/18 09:27 Duoneb INHALATION 3 ml Q2H PRN PRN Administration SOB &/OR WHEEZING Bisacodyl 10 mg 10/05/18 06:00 10/05/18 05:19 Dulcolax PO 10 mg DAILY GLORIA Administration Calamine/Phenol 1 applic 10/04/18 18:00 10/05/18 05:15 Calmoseptine Ointment TOPICAL 1 applicatio BID GLORIA Administration Protocol Losartan Potassium 50 mg 10/05/18 06:00 10/05/18 05:15 Cozaar PO 50 mg DAILY GLORIA Administration Metformin HCl 500 mg 10/05/18 08:00 10/05/18 08:34 Glucophage PO 500 mg DAILYCM GLORIA Administration Metoprolol Succinate 50 mg 10/05/18 06:00 10/05/18 05:23 Toprol Xl (Beta Radha) PO 50 mg DAILY GLORIA Administration Pantoprazole Sodium 40 mg 10/04/18 18:00 10/05/18 05:16 Protonix PO 40 mg BID GLORIA Administration Polyethylene Glycol 17 gm 10/05/18 06:00 10/05/18 05:16 Miralax PO 17 gm DAILY GLORIA Administration Polysaccharide Iron Complex 150 mg 10/05/18 08:00 10/05/18 08:34 Ferrex 150 PO 150 mg DAILYCM GLORIA Administration Senna/Docusate Sodium 1 tablet 10/05/18 06:00 10/05/18 05:17 Senokot-S, Britt-Colace PO 1 tablet BID GLORIA Administration Tamsulosin HCl 0.4 mg 10/05/18 06:00 10/05/18 05:16 Flomax PO 0.4 mg DAILY GLORIA Administration Tuberculin PPD 5 tu 10/12/18 10:00 Tubersol, Aplisol, Ppd ID 10/12/18 10:01 X1 ONE Problem List Upper gastrointestinal bleed (Acute) Multiple falls (Chronic) Debility (Chronic) Healthcare-associated pneumonia (Chronic) Intra-abdominal lymphadenopathy (Chronic) Vital Signs Temp Pulse Resp BP Pulse Ox 98.9 F 99 18 147/79 H 95 10/04/18 16:24 10/05/18 09:38 10/05/18 09:38 10/05/18 05:23 10/05/18 09:38 Oxygen Delivery Method Room Air Weight: 58.74 kg Body Mass Index (BMI) 20.3 Sodium 142 mmol/L (136-145) 10/05/18 05:10 Potassium 3.9 mmol/L (3.5-5.1) 10/05/18 05:10 Chloride 110 mmol/L (98-107) H 10/05/18 05:10 Carbon Dioxide 24.0 mmol/L (21.0-32.0) 10/05/18 05:10 Anion Gap 8 (5-15) 10/05/18 05:10 BUN 14 mg/dL (7-18) 10/05/18 05:10 Creatinine 1.13 mg/dL (0.70-1.30) 10/05/18 05:10 Est GFR (MDRD) Af Amer 80 mL/min (>60) 10/05/18 05:10 Est GFR (MDRD) Non-Af 67 mL/min (>60) 10/05/18 05:10 BUN/Creatinine Ratio 12.4 RATIO (10-20) 10/05/18 05:10 Glucose 116 mg/dL (74-106) H 10/05/18 05:10 Assessment/Plan: 1) Pain APAP for mild pain. Continue to monitor prn medication use, daily pain scores. 2) Pulm Duoneb aerosols, prn albuterol. Continue to monitor prn medication use, for shortness of breath. 3) HTN Losartan, metoprolol XL. Continue to monitor BP/HR, electrolytes, renal function. 4) DM2 Metformin daily. Continue to monitor BGT, renal function. 5) GI Pantoprazole daily. Continue to monitor s/s GI distress. 6) BPH Tamsulosin daily. Continue to monitor for symptoms. Psychotropic Medications: None Unnecessary Medications: None Bowel Regimen: 7) PEG, prn bisacodyl. Continue to monitor prn medication use, for constipation/diarrhea. Date of Note:: 10/05/18 - Provider Comments Provider responsibility: Provider responsible to enter orders to implement recommendations <Dion Cruz Chi - Last Filed: 10/05/18 17:50> Progress Note - Pharmacy Subjective: [] Objective: Allergies Iodinated Contrast- Oral and IV Dye [CONTRASTS] Adverse Reaction (Verified 09/30/18 16:13) Unknown NSAIDS (Non-Steroidal Anti-Inflamma Adverse Reaction (Verified 09/30/18 16:13) GI bleed Current Medications Generic Name Dose Route Start Last Admin Trade Name Freq PRN Reason Stop Dose Admin Acetaminophen 1,000 mg 10/04/18 20:45 Tylenol PO Q6H PRN PRN MILD PAIN (1-310) Albuterol Sulfate 2.5 mg 10/04/18 16:28 Ventolin Aerosols INHALATION Q2H PRN PRN SOB &/OR WHEEZING Albuterol/Ipratropium 3 ml 10/04/18 16:28 10/05/18 09:27 Duoneb INHALATION 3 ml Q2H PRN PRN Administration SOB &/OR WHEEZING Bisacodyl 10 mg 10/05/18 06:00 10/05/18 05:19 Dulcolax PO 10 mg DAILY GLORIA Administration Calamine/Phenol 1 applic 10/04/18 18:00 10/05/18 17:40 Calmoseptine Ointment TOPICAL 1 applicatio BID GLORIA Administration Protocol Losartan Potassium 50 mg 10/05/18 06:00 10/05/18 05:15 Cozaar PO 50 mg DAILY GLORIA Administration Metformin HCl 500 mg 10/05/18 08:00 10/05/18 08:34 Glucophage PO 500 mg DAILYCM GLORIA Administration Metoprolol Succinate 50 mg 10/05/18 06:00 10/05/18 05:23 Toprol Xl (Beta Radha) PO 50 mg DAILY GLORIA Administration Pantoprazole Sodium 40 mg 10/04/18 18:00 10/05/18 17:38 Protonix PO 40 mg BID GLORIA Administration Polyethylene Glycol 17 gm 10/05/18 06:00 10/05/18 05:16 Miralax PO 17 gm DAILY GLORIA Administration Polysaccharide Iron Complex 150 mg 10/05/18 08:00 10/05/18 08:34 Ferrex 150 PO 150 mg DAILYCM GLORIA Administration Senna/Docusate Sodium 1 tablet 10/05/18 06:00 10/05/18 17:38 Senokot-S, Britt-Colace PO 1 tablet BID GLORIA Administration Tamsulosin HCl 0.4 mg 10/05/18 06:00 10/05/18 05:16 Flomax PO 0.4 mg DAILY GLORIA Administration Tuberculin PPD 5 tu 10/12/18 10:00 Tubersol, Aplisol, Ppd ID 10/12/18 10:01 X1 ONE Problem List Upper gastrointestinal bleed (Acute) Multiple falls (Chronic) Debility (Chronic) Healthcare-associated pneumonia (Chronic) Intra-abdominal lymphadenopathy (Chronic) Vital Signs Temp Pulse Resp BP Pulse Ox 98.9 F 100 16 94/55 L 98 10/05/18 15:58 10/05/18 15:58 10/05/18 15:58 10/05/18 15:58 10/05/18 15:58 Oxygen Delivery Method Room Air Weight: 58.74 kg Body Mass Index (BMI) 20.3 Sodium 142 mmol/L (136-145) 10/05/18 05:10 Potassium 3.9 mmol/L (3.5-5.1) 10/05/18 05:10 Chloride 110 mmol/L (98-107) H 10/05/18 05:10 Carbon Dioxide 24.0 mmol/L (21.0-32.0) 10/05/18 05:10 Anion Gap 8 (5-15) 10/05/18 05:10 BUN 14 mg/dL (7-18) 10/05/18 05:10 Creatinine 1.13 mg/dL (0.70-1.30) 10/05/18 05:10 Est GFR (MDRD) Af Amer 80 mL/min (>60) 10/05/18 05:10 Est GFR (MDRD) Non-Af 67 mL/min (>60) 10/05/18 05:10 BUN/Creatinine Ratio 12.4 RATIO (10-20) 10/05/18 05:10 Glucose 116 mg/dL (74-106) H 10/05/18 05:10 Assessment/Plan: Psychotropic Medications: Unnecessary Medications: Bowel Regimen: - Provider Comments Provider responsibility: Provider responsible to enter orders to implement recommendations Provider Comments to Recommendations by Pharmacy: Agree
[2018-10-05 15:58] VITALS: BP 94/55; PULSE 100; RESP 16; TEMP 37.2; O2SAT 98
--- NOTE | 2018-10-05 16:20 | NURSING ---
HEELS RED, FLOAT HEELS. REPORTED TO GABY MURILLO
[2018-10-05 16:51] LABS: Bedside Glucose 126 mg/dL (70-110)
[2018-10-05 21:26] LABS: Bedside Glucose 131 mg/dL (70-110)
[2018-10-06] MEDS: Menthol/Lanolin/Calamine/Znox 113 GM Tube 1 APPLIC TOPICAL ×2 (05:42→16:55)
[2018-10-06] MEDS: Polyethylene Glycol 3350 17 GM PACKET PO (05:44)
[2018-10-06 05:45] VITALS: BP 134/75; PULSE 96
[2018-10-06] MEDS: Pantoprazole Sodium 40 MG Tablet PO ×2 (05:45→16:55)
[2018-10-06] MEDS: Metoprolol(XL)Succ 50 MG Tablet PO (05:45)
[2018-10-06] MEDS: Tamsulosin HCl 0.4 MG Capsule PO (05:45)
[2018-10-06] MEDS: Senna/Docusate Sodium 1 Tablet PO ×2 (05:45→16:55)
[2018-10-06] MEDS: Losartan Potassium 50 MG Tablet PO (05:45)
[2018-10-06] MEDS: Bisacodyl 5 MG Tablet 10 MG PO (05:47)
[2018-10-06 06:45] LABS: Bedside Glucose 110 mg/dL (70-110)
[2018-10-06] MEDS: Iron Polysaccharide Complex 150 MG CAPSULE PO (08:10)
--- NOTE | 2018-10-06 08:34 | CON.PCM_ITS ---
Problem List (1) Primary neuroendocrine carcinoma of stomach Status: Acute - Consult Date of Consult: 10/06/18 - Reason for Consult HPI: patient is a 78-year-old male who has a past medical history significant for COPD. He was admitted to [facility] at the end of July for pneumonia. Evidently he was treated with steroids in addition to antibiotics. a CT of the chest was performed during his hospitalization and he was observed to have a possible gastric mass. EGD was entertained but deferred secondary to his respiratory status at the time.He was discharged to the [facility] transitional care unit. while there he developed a syncopal episode and was noted to have melena. He was transferred to the emergency department. He was then admitted to the ICU for hypovolemic shock and was managed acutely with volume resuscitation and transfusion. He underwent an urgent EGD which revealed a sessile gastric mass that was biopsied. He was also observed to have a duodenal ulcer with visible vessel. The vessel was treated with epinephrine injection. 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 The patient does not have a history of reflux. However in retrospect he may have been having some melena/bright red blood per stool for several months. He is also lost weight. His appetite is rather poor. He denies nausea. He denies abdominal pain. He has been having diarrhea and bowel incontinence. Allergies Iodinated Contrast- Oral and IV Dye [CONTRASTS] Adverse Reaction (Verified 09/30/18 16:13) Unknown NSAIDS (Non-Steroidal Anti-Inflamma Adverse Reaction (Verified 09/30/18 16:13) GI bleed Current Medications Acetaminophen (Tylenol) 1,000 mg PO Q6H PRN PRN PRN Reason: MILD PAIN (-11/28) Albuterol Sulfate (Ventolin Aerosols) 2.5 mg INHALATION Q2H PRN PRN PRN Reason: SOB &/OR WHEEZING Albuterol/Ipratropium (Duoneb) 3 ml INHALATION Q2H PRN PRN PRN Reason: SOB &/OR WHEEZING Last Admin: 10/05/18 09:27 Dose: 3 ml Bisacodyl (Dulcolax) 10 mg PO DAILY [facility] Last Admin: 10/06/18 05:47 Dose: 10 mg Calamine/Phenol (Calmoseptine Ointment) 1 applic TOPICAL BID [facility]; Protocol Last Admin: 10/06/18 05:42 Dose: 1 applicatio Losartan Potassium (Cozaar) 50 mg PO DAILY [facility] Last Admin: 10/06/18 05:45 Dose: 50 mg [facility] ([facility]) [facility] Last Admin: 10/06/18 08:10 Dose: 500 mg Metoprolol Succinate (Toprol Xl (Beta Radha)) 50 mg PO DAILY [facility] Last Admin: 10/06/18 05:45 Dose: 50 mg Pantoprazole Sodium (Protonix) 40 mg PO BID [facility] Last Admin: 10/06/18 05:45 Dose: 40 mg Polyethylene Glycol (Miralax) 17 gm PO DAILY [facility] Last Admin: 10/06/18 05:44 Dose: 17 gm Polysaccharide Iron Complex (Ferrex 150) [facility] Last Admin: 10/06/18 08:10 Dose: 150 mg Senna/Docusate Sodium (Senokot-S, Britt-Colace) 1 tablet PO BID [facility] Last Admin: 10/06/18 05:45 Dose: 1 tablet Tamsulosin HCl (Flomax) 0.4 mg PO DAILY [facility] Last Admin: 10/06/18 05:45 Dose: 0.4 mg Tuberculin PPD (Tubersol, Aplisol, Ppd) 5 tu ID [id number] ONE Stop: 10/12/18 10:01 Problem List Upper gastrointestinal bleed (Acute) Multiple falls (Chronic) Debility (Chronic) Healthcare-associated pneumonia (Chronic) Intra-abdominal lymphadenopathy (Chronic) Primary neuroendocrine carcinoma of stomach (Acute) Surgical History: - - Left heart cath, EGD with cauterization gastric ulcer, EGD with gastric biopsy, epinephrine injection duodenal ulcer. Psychiatric History: No pertinent psych hx Lives: Spouse/ Significant Other Smoking Status: Former smoker - 30 pack year smoking history. Tobacco Use: Non-smoker Alcohol: None Drugs: None - *Family History Maternal History Items: No pertinent history Paternal History Items: No pertinent history Review of Systems Constitutional: Denies: Chills, Fever HEENT: Denies: Head Aches, Sinus Congestion, Sinus Drainage Cardiovascular: Denies: Chest Pain, Palpitations Respiratory: Denies: Cough has improved. No sputum production currently. Gastrointestinal: See above. Genitourinary: Denies: Dysuria Musculoskeletal: Denies: Joint Pain, Joint Tenderness Skin: Denies: Rash, Wounds Neurological: Denies: Numbness, Tingling, Focal weakness Psychiatric: Denies: Anxiety, Depression, Homicidal Ideations, Suicidal Ideations Hematologic/ Lymphatic: Denies: Easy Bruising, Easy Bleeding PHYSICAL EXAM: Vitals: Vital Signs Temp 98.9 F 10/05/18 15:58 Pulse 96 10/06/18 05:45 Resp 16 10/05/18 15:58 BP 134/75 H 10/06/18 05:45 Pulse Ox 98 10/05/18 15:58 Intake & Output 10/04/18 10/05/18 10/06/18 23:59 23:59 23:59 Intake Total 330 / 330 580 / 580 90 / 90 Balance 330 / 330 580 / 580 90 / 90 Weight: 58.876 kg 58.74 kg Intake: Oral 330 / 330 580 / 580 90 / 90 Other: Incontinent Amount Large Large Number of Bowel Movements 1 Fatigued-appearing but in no acute distress. EYES: Sclerae are anicteric bilaterally. NECK: Supple. LYMPHATIC: There is no palpable cervical or supraclavicular adenopathy. RESPIRATORY: Inspiratory breath sounds are of diminished intensity in all sibley. CARDIOVASCULAR: Rhythm is regular. ABDOMEN: The abdomen is nondistended. No organomegaly. No mass appreciated and no tenderness. Extremities: No swelling or edema. SKIN: No jaundice or rash. Laboratory Results - last 24 hr 10/05/18 10/05/18 10/05/18 05:10 11:38 16:47 Lactate Dehydrogenase 281 H POC Glucose 196 H 126 H 10/05/18 10/06/18 21:19 06:39 Lactate Dehydrogenase POC Glucose 131 H 110 ASSESSMENT/PLAN: 1) high-grade gastric neuroendocrine tumor. Assessment: -Unclear as to whether the diarrhea is related but otherwise patient is asymptomatic from the disease. -I discussed the case with Dr. Vargas. Endoscopically it was evident that the duodenal ulcer had cause the significant GI bleed. Most likely etiology of the ulcer is stress and recent use of high-dose steroids to manage COPD exacerbation/pneumonia. -I discussed with the patient and his daughter the approach to workup. I recommended staging with an abdominal MRI given his allergy to IV contrast material and the need to avoid steroid prep given the recent ulcer. Also he'll require biochemical workup which will include a 24-hour urine collection to quantitate 5-hydroxyindoleacetic acid. -We also discussed the potential use of octreotide to potentially palliate diarrhea and also potentially increase progression free survival. -Clinically, likelihood of Mitch-Wilkinson syndrome very low given age of presentation. Additionally cannot stop proton pump inhibitor currently in order to measure gastrin levels. Plan: -MRI abdomen. -24 hour urine for 5-HIAA. -Can start short acting octreotide 100 ?g subcutaneous every 8 hours following MRI.
[2018-10-06 09:24] LABS: Vitamin B12 735 pg/mL (211-911)
--- NOTE | 2018-10-06 10:04 | NURSING ---
dr Ling here to see pt for consult order. Had ordered 24 hr urine, notified him that pt incont of urine most of time. new order to discontinue order.
[2018-10-06 11:56] LABS: Bedside Glucose 147 mg/dL (70-110)
--- NOTE | 2018-10-06 14:12 | NURSING ---
pt off unit via bed to MRI at this time.
[2018-10-06 15:45] VITALS: BP 106/58; PULSE 91; RESP 16; TEMP 37.2; O2SAT 94
--- NOTE | 2018-10-06 15:52 | CASEMGMT ---
Social Work Spoke with resident daughter, Shanna. Shanna voicing that resident is currently unsure about hospice services but if resident would choose to go with hospice services, [facility] ([phone]) in [place], [place] would be resident's choice. Will continue to follow. ELVIA Anna
[2018-10-06 16:51] LABS: Bedside Glucose 125 mg/dL (70-110)
--- NOTE | 2018-10-06 19:02 | NURSING ---
Addendum entered by Larisa Boyd 10/06/18 19:06: Dr Cruz notified, new order chest xray, solumedrol 125 x1 & vest therapy, give aerosal tx now. stat Original Note: This nurse notified by Marisol MERCADO that PT wasn't responding to questions, and didn't look well, and stumbled durning transfer. Pt noted to be pale in color and lying in bed, Pt wouldn't respond to this nurse questions, pulse 109 , SP02 96 . This nurse notified Larisa GRIFFIN
[2018-10-06 19:05] VITALS: BP 81/58; PULSE 104; RESP 18; O2SAT 95
[2018-10-06 19:08] VITALS: PULSE 93; RESP 16
[2018-10-06] MEDS: Ipratropium/Albuterol Sulfate 3 ML AMPUL.NEB INHALATION (19:08)
--- NOTE | 2018-10-06 19:20 | RAD_ITS ---
STUDY: X-RAY CHEST REASON FOR EXAM: Male, 78 years old. Shortness of breath TECHNIQUE: Frontal and lateral views COMPARISON: September 30, 2018 FINDINGS: Interval removal of right venous line. The lungs are expanded. Left pleural effusion is again noted. Bibasilar interstitial prominence. Possible left perihilar infiltrate. Normal size heart. Normal mediastinum and yoselyn. Normal visualized pulmonary arteries. Normal visualized aortic arch and descending thoracic aorta. Degenerative changes of the thoracic spine. Normal visualized ribs, clavicles, and shoulders. There is no demonstrated abnormality of the visualized soft tissue structures of the upper abdomen. RAD/Chest PA and Lateral IMPRESSION: Left pleural effusion is again noted. Bibasilar interstitial prominence. Possible left perihilar infiltrate. Electronically Signed: Vitor Maddox DO at 23:56 EST Tel [phone], Service support ,
[2018-10-06] MEDS: 0.9% NaCl Peripheral Flush Adult/Peds IV ×3 (19:42→21:47)
[2018-10-06] MEDS: MethylPREDNISolone 125 MG/2 ML Vial IV (19:42)
[2018-10-06 19:45] LABS: Hematocrit 31.6 % (40-54)
[2018-10-06 21:16] LABS: Bedside Glucose 188 mg/dL (70-110)
[2018-10-06] MEDS: Mirtazapine 15 MG Tablet 7.5 MG PO (21:25)
--- NOTE | 2018-10-06 21:34 | NURSING ---
Pt accepted hs med without issue, mouth care provided at this time. Appears comfortable and in no distress. RN aware, continuing to monitor.
[2018-10-06] MEDS: 0.9% Normal Saline 1,000 ML 999 ML IV (21:51)
[2018-10-07 05:22] VITALS: BP 95/56; PULSE 88
[2018-10-07] MEDS: Menthol/Lanolin/Calamine/Znox 113 GM Tube 1 APPLIC TOPICAL ×2 (05:22→17:39)
[2018-10-07] MEDS: Metoprolol(XL)Succ 25 MG Tablet PO (05:22)
[2018-10-07] MEDS: Senna/Docusate Sodium 1 Tablet PO ×2 (05:23→17:35)
[2018-10-07] MEDS: Polyethylene Glycol 3350 17 GM PACKET PO (05:23)
[2018-10-07] MEDS: Pantoprazole Sodium 40 MG Tablet PO ×2 (05:23→17:35)
[2018-10-07] MEDS: Tamsulosin HCl 0.4 MG Capsule PO (05:25)
[2018-10-07 06:41] LABS: Bedside Glucose 200 mg/dL (70-110)
[2018-10-07] MEDS: Iron Polysaccharide Complex 150 MG CAPSULE PO (08:11)
[2018-10-07 09:05] VITALS: PULSE 89; RESP 20
[2018-10-07] MEDS: Ipratropium/Albuterol Sulfate 3 ML AMPUL.NEB INHALATION ×3 (09:05→19:02)
[2018-10-07] MEDS: 0.9% NaCl Peripheral Flush Adult/Peds IV (09:31)
[2018-10-07] MEDS: 0.9% Normal Saline 1,000 ML 60 ML IV (09:39)
[2018-10-07 11:11] LABS: Bedside Glucose 200 mg/dL (70-110)
[2018-10-07 12:42] VITALS: PULSE 85; RESP 16
[2018-10-07 13:00] VITALS: PULSE 94; RESP 16; O2SAT 97
[2018-10-07 15:25] VITALS: BP 109/62; PULSE 94; RESP 20; TEMP 36.6; O2SAT 97
[2018-10-07 17:11] LABS: Bedside Glucose 141 mg/dL (70-110)
[2018-10-07 19:02] VITALS: PULSE 95; RESP 16; O2SAT 95
[2018-10-07 21:15] LABS: Bedside Glucose 166 mg/dL (70-110)
[2018-10-08] MEDS: 0.9% Normal Saline 1,000 ML 60 ML IV ×2 (02:29→20:05)
[2018-10-08] MEDS: Pantoprazole Sodium 40 MG Tablet PO ×2 (06:25→17:09)
[2018-10-08] MEDS: Senna/Docusate Sodium 1 Tablet PO ×2 (06:25→17:09)
[2018-10-08] MEDS: Tamsulosin HCl 0.4 MG Capsule PO (06:25)
[2018-10-08 06:27] VITALS: PULSE 88
[2018-10-08] MEDS: Metoprolol(XL)Succ 25 MG Tablet PO (06:27)
[2018-10-08] MEDS: Menthol/Lanolin/Calamine/Znox 113 GM Tube 1 APPLIC TOPICAL ×2 (06:31→17:15)
[2018-10-08 06:45] LABS: Bedside Glucose 87 mg/dL (70-110)
[2018-10-08 06:47] VITALS: PULSE 76; RESP 18; O2SAT 99
[2018-10-08] MEDS: Ipratropium/Albuterol Sulfate 3 ML AMPUL.NEB INHALATION ×3 (06:47→18:50)
[2018-10-08] MEDS: Iron Polysaccharide Complex 150 MG CAPSULE PO (08:16)
--- NOTE | 2018-10-08 08:29 | NURSING ---
Dr. Cruz reviewed MRI results, NNO.
[2018-10-08 11:36] LABS: Bedside Glucose 93 mg/dL (70-110)
[2018-10-08 12:59] VITALS: PULSE 89; RESP 18
[2018-10-08 16:00] VITALS: BP 127/70; PULSE 107; RESP 18; TEMP 36.8; O2SAT 98
--- NOTE | 2018-10-08 17:01 | PCM.PROGNOTE ---
Patient Problems: Active and Suspected Problems Upper gastrointestinal bleed (Acute) Primary neuroendocrine carcinoma of stomach (Acute) - Physical Exam Vital Signs Temp Pulse Resp BP Pulse Ox 98.2 F 107 H 18 127/70 H 98 10/08/18 16:00 10/08/18 16:00 10/08/18 16:00 10/08/18 16:00 10/08/18 16:00 Oxygen Delivery Method Room Air Weight: 58.74 kg Body Mass Index (BMI) 20.3 Intake and Output for Last 24 Hours 10/06/18 10/07/18 10/08/18 23:59 23:59 23:59 Intake Total 630 / 630 700 / 700 600 / 600 Balance 630 / 630 700 / 700 600 / 600 POC Glucose 10/08/18 10/08/18 10/07/18 11:25 06:41 21:08 POC Glucose 93 87 166 H 10/07/18 17:01 POC Glucose 141 H Medical Necessity - Tobacco Use Smoking Status: Former smoker - 30 pack year smoking history. Tobacco Use: Non-smoker Assessment/Plan All Active Problems Hypertensive urgency (Acute) Duodenal ulcer (Acute) Upper gastrointestinal bleed (Acute) Primary neuroendocrine carcinoma of stomach (Acute) Acute blood loss anemia (Acute) GI bleed (Acute) NABEEL (acute kidney injury) (Acute) Lactic acidosis (Acute) Syncope (Acute) Hypovolemic shock (Acute) Met with patient and family today to discuss treatment plan. Patient not having abdominal pain. Typically 3-4 loose stools a day without watery diarrhea. Can have nocturnal bowel incontinence. No nausea. Appetite fluctuates. Discussed that in ideal circumstances, would obtain octreotide scan and obtain surgical opinion if no distant metastatic disease, but given his recent h/o of pneumonia and GI bleed with ensuing debility, he prefers a medical approach at this time. I suggested a trial of octreotide to which he agrees. Tentatively plan to reimage in a couple months.
[2018-10-08 17:06] LABS: Bedside Glucose 114 mg/dL (70-110)
--- NOTE | 2018-10-08 18:13 | NURSING ---
Dr. Ling in to see patient today, NO for sandostatin 0.1mg SQ TID x 7 days.
[2018-10-08 18:50] VITALS: PULSE 93; RESP 18
[2018-10-08] MEDS: 0.9% NaCl Peripheral Flush Adult/Peds IV (20:08)
[2018-10-08 21:16] LABS: Bedside Glucose 106 mg/dL (70-110)
[2018-10-08 22:20] VITALS: RESP 16; O2SAT 96
--- NOTE | 2018-10-09 03:30 | NURSING ---
Addendum entered by Cynthia Banda 10/09/18 04:13: While in pt room with nurse GABY Henao cleansing pt abrasion to right outer knee this nurse notice a bed bug crawling on the pt bed. Put bed bug in container notified clerical warehouse worker and housekeeping. Original Note: During pt rounds, pt found sitting upright on buttocks without gown on, and attends off facing bathroom door in his room with IV pole standing next to him. Pt stated he was going to the bathroom. Personal alarm noted to be unclipped. Pt denies hitting head. Pt denies pain. Small abrasions noted to Right elbow; bandaid applied and Right knee; adaptic dressing applied. Alert to self and time, reoriented to place. BP 141/77, Temp 98.2, Pulse Ox- 96%, HR 104. Dr Cruz notified. Madyson and Nikki emailed.
[2018-10-09 06:30] VITALS: PULSE 88; RESP 16
[2018-10-09] MEDS: Ipratropium/Albuterol Sulfate 3 ML AMPUL.NEB INHALATION ×2 (06:30→19:05)
[2018-10-09 06:31] LABS: Bedside Glucose 89 mg/dL (70-110)
[2018-10-09 07:09] VITALS: PULSE 94
[2018-10-09] MEDS: Metoprolol(XL)Succ 25 MG Tablet PO (07:09)
[2018-10-09] MEDS: Polyethylene Glycol 3350 17 GM PACKET PO (07:09)
[2018-10-09] MEDS: Pantoprazole Sodium 40 MG Tablet PO ×2 (07:09→16:36)
[2018-10-09] MEDS: Senna/Docusate Sodium 1 Tablet PO ×2 (07:10→16:37)
[2018-10-09] MEDS: Tamsulosin HCl 0.4 MG Capsule PO (07:11)
[2018-10-09] MEDS: Menthol/Lanolin/Calamine/Znox 113 GM Tube 1 APPLIC TOPICAL ×2 (07:16→16:51)
[2018-10-09] MEDS: Octreotide 0.1 MG/ML ML SC ×3 (09:47→22:08)
[2018-10-09] MEDS: Iron Polysaccharide Complex 150 MG CAPSULE PO (09:50)
[2018-10-09 11:06] LABS: Bedside Glucose 105 mg/dL (70-110)
[2018-10-09] MEDS: 0.9% Normal Saline 1,000 ML 60 ML IV (13:00)
[2018-10-09 15:26] VITALS: BP 148/87; PULSE 82; RESP 16; TEMP 36.2; O2SAT 96
--- NOTE | 2018-10-09 16:11 | NURSING ---
Pt refusing is Sc injection at this time. Pt not understanding why he has to get this medication by injection. Pt was very upset when this nurse gave first dose this AM and is refusing this dose. Larisa GRIFFIN aware
[2018-10-09 17:01] LABS: Bedside Glucose 200 mg/dL (70-110)
[2018-10-09 19:05] VITALS: PULSE 84; RESP 16
[2018-10-09 20:56] LABS: Bedside Glucose 199 mg/dL (70-110)
[2018-10-09 22:00] VITALS: PULSE 82; RESP 16; O2SAT 96
[2018-10-10] VITALS (7 sets, daily range): BP systolic 143–163; BP diastolic 84–85; PULSE 66–96; RESP 16–18; TEMP 37; O2SAT 94–95
[2018-10-10] MEDS: Pantoprazole Sodium 40 MG Tablet PO ×2 (06:45→17:03)
[2018-10-10] MEDS: Polyethylene Glycol 3350 17 GM PACKET PO (06:45)
[2018-10-10 06:46] LABS: Bedside Glucose 134 mg/dL (70-110)
[2018-10-10] MEDS: Tamsulosin HCl 0.4 MG Capsule PO (06:46)
[2018-10-10] MEDS: Senna/Docusate Sodium 1 Tablet PO ×2 (06:46→17:03)
[2018-10-10] MEDS: Menthol/Lanolin/Calamine/Znox 113 GM Tube 1 APPLIC TOPICAL ×2 (06:46→17:03)
[2018-10-10] MEDS: Octreotide 0.1 MG/ML ML SC ×3 (06:47→20:01)
[2018-10-10] MEDS: Ipratropium/Albuterol Sulfate 3 ML AMPUL.NEB INHALATION ×2 (06:50→13:20)
[2018-10-10] MEDS: Metoprolol(XL)Succ 50 MG Tablet PO (06:51)
[2018-10-10] MEDS: Iron Polysaccharide Complex 150 MG CAPSULE PO (07:59)
[2018-10-10 11:20] LABS: Bedside Glucose 150 mg/dL (70-110)
[2018-10-10] MEDS: Losartan Potassium 50 MG Tablet PO (11:38)
[2018-10-10 16:50] LABS: Bedside Glucose 126 mg/dL (70-110)
[2018-10-10 21:20] LABS: Bedside Glucose 172 mg/dL (70-110)
[2018-10-11] MEDS: Menthol/Lanolin/Calamine/Znox 113 GM Tube 1 APPLIC TOPICAL ×2 (05:11→17:54)
[2018-10-11] MEDS: Polyethylene Glycol 3350 17 GM PACKET PO (05:12)
[2018-10-11] MEDS: Pantoprazole Sodium 40 MG Tablet PO ×2 (05:12→17:52)
[2018-10-11] MEDS: Tamsulosin HCl 0.4 MG Capsule PO (05:12)
[2018-10-11 05:13] VITALS: BP 142/82; PULSE 72
[2018-10-11] MEDS: Metoprolol(XL)Succ 50 MG Tablet PO (05:13)
[2018-10-11] MEDS: Octreotide 0.1 MG/ML ML SC ×2 (05:13→13:20)
[2018-10-11] MEDS: Senna/Docusate Sodium 1 Tablet PO ×2 (05:13→17:52)
[2018-10-11] MEDS: Losartan Potassium 50 MG Tablet PO (05:14)
[2018-10-11 06:40] VITALS: PULSE 88; RESP 20
[2018-10-11] MEDS: Ipratropium/Albuterol Sulfate 3 ML AMPUL.NEB INHALATION ×2 (06:40→23:19)
[2018-10-11] MEDS: Iron Polysaccharide Complex 150 MG CAPSULE PO (07:52)
[2018-10-11 09:01] LABS: Bedside Glucose 107 mg/dL (70-110)
[2018-10-11 11:15] LABS: Bedside Glucose 198 mg/dL (70-110)
--- NOTE | 2018-10-11 13:28 | CASEMGMT ---
Brief interview for mental status (BIMS) and resident mood interview (PHQ-9) completed on this day. BIMS score 08/05. PHQ-9 score 02/14
[2018-10-11 15:27] VITALS: BP 123/63; PULSE 72; RESP 18; TEMP 36.3; O2SAT 94
[2018-10-11 16:52] LABS: Bedside Glucose 182 mg/dL (70-110)
[2018-10-11 21:26] LABS: Bedside Glucose 263 mg/dL (70-110)
--- NOTE | 2018-10-11 22:00 | NURSING ---
This nurse tried administering sandostatin injection pt refused stating he do not get it at this time. Had a Rn try and pt refused again. States will take in the morning.
[2018-10-11 22:43] VITALS: PULSE 74; RESP 16; O2SAT 97
[2018-10-11 23:19] VITALS: PULSE 75; RESP 18
[2018-10-12 05:49] LABS: Absolute Lymphocyte Count 2.15 X10^3/ul (0.83-4.51); Basophil# 0.02 X10^3/uL; Basophil% 0.4 % (0-1); Eosinophil# 0.12 X10^3/uL; Eosinophils% 2.5 % (0-5); Hematocrit 31.6 % (40-54); Hemoglobin 9.8 g/dl (13.0-16.5); Lymphocyte # 2.15 X10^3/ul (4.0); Lymphocyte % 44.8 % (19-41); Mean Corpuscular Hgb 29.1 pg (27.0-32.0); Mean Corpuscular Volume 93.8 fL (80-94); Mean Platelet Vol. 9.4 fl (6.2-12.0); Monocyte# 0.48 X10^3/uL; Neutrophil # 2.02 X10^3/uL (2.7-7.7); Neutrophil % 42.1 % (47-70); Platelet Count 321 K/mm3 (150-450); RBC Distribution Width CV 16.7 % (11.6-14.6); RBC Distribution Width SD 54.6 fl (35.1-43.9); Red Blood Count 3.37 M/mm3 (4.6-6.2); White Blood Count 4.8 K/mm3 (4.4-11.0)
[2018-10-12 06:03] LABS: POSITIVE COUNT NO; POSITIVE DIFFERENTIAL NO; POSITIVE MORPHOLOGY NO
[2018-10-12 06:21] LABS: Anion Gap 8 (5-15); BUN 15 mg/dL (7-18); BUN/Creat Ratio 12.9 RATIO (10-20); Calcium,Total 7.9 mg/dL (8.5-10.1); Chloride 111 mmol/L (98-107); Creatinine, Serum 1.16 mg/dL (0.70-1.30); EST Glomerular Filtration Rate 65 mL/min (>60); Est Glom Filt Rate - Afr Amer 78 mL/min (>60); Glucose 124 mg/dL (74-106); Potassium 3.4 mmol/L (3.5-5.1); Sodium Level 145 mmol/L (136-145)
[2018-10-12] MEDS: Albuterol 2.5 MG/3 ML VIAL.NEB. INHALATION (06:53)
[2018-10-12 06:54] VITALS: PULSE 82
[2018-10-12] MEDS: Pantoprazole Sodium 40 MG Tablet PO ×2 (06:54→17:00)
[2018-10-12] MEDS: Metoprolol(XL)Succ 50 MG Tablet PO (06:54)
[2018-10-12] MEDS: Senna/Docusate Sodium 1 Tablet PO ×2 (06:54→17:00)
[2018-10-12] MEDS: Losartan Potassium 50 MG Tablet PO (06:55)
[2018-10-12] MEDS: Tamsulosin HCl 0.4 MG Capsule PO (06:55)
[2018-10-12] MEDS: Polyethylene Glycol 3350 17 GM PACKET PO (06:57)
[2018-10-12] MEDS: Menthol/Lanolin/Calamine/Znox 113 GM Tube 1 APPLIC TOPICAL ×2 (06:58→18:41)
[2018-10-12 07:15] LABS: Bedside Glucose 121 mg/dL (70-110)
[2018-10-12 07:21] VITALS: PULSE 82; RESP 20
--- NOTE | 2018-10-12 07:39 | NURSING ---
This nurse notice increase confusion this morning from pt. Tried given sandostatin injection pt refused stating he gets it at 10 am not 6 am tried explain to pt what time injection are given. Took medication as order but when given water pitcher to drink pt tilted the cup instead of sucking out of the straw. This nurse had to cue pt to suck of straw twices. Rn's made aware.
[2018-10-12] MEDS: Iron Polysaccharide Complex 150 MG CAPSULE PO (07:57)
--- NOTE | 2018-10-12 08:41 | NURSING ---
Dr. Cruz reviewed labs, NO for KCL 20mEq x1 and recheck BMP in AM.
[2018-10-12 11:31] LABS: Bedside Glucose 182 mg/dL (70-110)
[2018-10-12] MEDS: Octreotide 0.1 MG/ML ML SC ×2 (14:50→21:21)
[2018-10-12 15:56] VITALS: BP 123/68; PULSE 76; RESP 18; TEMP 37; O2SAT 95
[2018-10-12 16:51] LABS: Bedside Glucose 133 mg/dL (70-110)
[2018-10-12 18:53] VITALS: PULSE 79; RESP 18
[2018-10-12] MEDS: Ipratropium/Albuterol Sulfate 3 ML AMPUL.NEB INHALATION (18:53)
[2018-10-12 21:21] LABS: Bedside Glucose 242 mg/dL (70-110)
[2018-10-12 22:33] VITALS: PULSE 78; RESP 18; O2SAT 96
[2018-10-13 06:13] LABS: Anion Gap 9 (5-15); BUN 15 mg/dL (7-18); BUN/Creat Ratio 12.8 RATIO (10-20); Calcium,Total 8.1 mg/dL (8.5-10.1); Chloride 111 mmol/L (98-107); Creatinine, Serum 1.17 mg/dL (0.70-1.30); EST Glomerular Filtration Rate 64 mL/min (>60); Est Glom Filt Rate - Afr Amer 77 mL/min (>60); Estimated Creatinine Clearance 42.43 ml/min; Glucose 158 mg/dL (74-106); Potassium 3.6 mmol/L (3.5-5.1); Sodium Level 146 mmol/L (136-145)
[2018-10-13 06:31] VITALS: PULSE 87
[2018-10-13] MEDS: Menthol/Lanolin/Calamine/Znox 113 GM Tube 1 APPLIC TOPICAL ×2 (06:31→18:39)
[2018-10-13] MEDS: Pantoprazole Sodium 40 MG Tablet PO ×2 (06:31→18:35)
[2018-10-13] MEDS: Metoprolol(XL)Succ 50 MG Tablet PO (06:31)
[2018-10-13] MEDS: Tamsulosin HCl 0.4 MG Capsule PO (06:32)
[2018-10-13] MEDS: Octreotide 0.1 MG/ML ML SC ×3 (06:32→21:22)
[2018-10-13] MEDS: Losartan Potassium 50 MG Tablet PO (06:32)
[2018-10-13 06:50] LABS: Bedside Glucose 149 mg/dL (70-110)
[2018-10-13 07:49] VITALS: PULSE 86; RESP 16; O2SAT 92
[2018-10-13] MEDS: Ipratropium/Albuterol Sulfate 3 ML AMPUL.NEB INHALATION ×2 (07:49→13:00)
[2018-10-13] MEDS: Iron Polysaccharide Complex 150 MG CAPSULE PO (08:57)
[2018-10-13 11:45] LABS: Bedside Glucose 222 mg/dL (70-110)
[2018-10-13 13:00] VITALS: PULSE 89; RESP 16; O2SAT 94
--- NOTE | 2018-10-13 13:22 | MDS.RN ---
Information for the mds was obtained from review of the clinical record, interview of resident, staff, and direct observation of resident's care.
[2018-10-13 15:20] VITALS: BP 128/72; PULSE 88; RESP 16; TEMP 37.2; O2SAT 97
[2018-10-13 17:01] LABS: Bedside Glucose 400 mg/dL (70-110)
--- NOTE | 2018-10-13 17:37 | NURSING ---
Pt BS elevated at 400 this evening, Dr. Cruz notified. NO for x1 dose of humalog 10units SC.
[2018-10-13] MEDS: Senna/Docusate Sodium 1 Tablet PO (18:35)
[2018-10-13] MEDS: Insulin Lispro 100 UNIT/ML INSULN.PEN 10 UNIT SC (18:37)
[2018-10-13 20:14] VITALS: PULSE 76; RESP 18; O2SAT 94
[2018-10-13 20:55] LABS: Bedside Glucose 63 mg/dL (70-110)
[2018-10-13 21:20] LABS: Bedside Glucose 98 mg/dL (70-110)
[2018-10-14] MEDS: Pantoprazole Sodium 40 MG Tablet PO ×2 (06:09→17:56)
[2018-10-14] MEDS: Losartan Potassium 50 MG Tablet PO (06:09)
[2018-10-14] MEDS: Menthol/Lanolin/Calamine/Znox 113 GM Tube 1 APPLIC TOPICAL ×2 (06:09→17:56)
[2018-10-14 06:10] VITALS: PULSE 83
[2018-10-14] MEDS: Octreotide 0.1 MG/ML ML SC ×3 (06:10→22:27)
[2018-10-14] MEDS: Metoprolol(XL)Succ 50 MG Tablet PO (06:10)
[2018-10-14] MEDS: Tamsulosin HCl 0.4 MG Capsule PO (06:10)
[2018-10-14 06:22] VITALS: PULSE 88; RESP 20
[2018-10-14] MEDS: Ipratropium/Albuterol Sulfate 3 ML AMPUL.NEB INHALATION ×3 (06:22→18:40)
[2018-10-14 06:31] LABS: Bedside Glucose 135 mg/dL (70-110)
[2018-10-14] MEDS: Iron Polysaccharide Complex 150 MG CAPSULE PO (07:55)
[2018-10-14 10:51] LABS: Bedside Glucose 332 mg/dL (70-110)
--- NOTE | 2018-10-14 12:01 | NURSING ---
blood sugar preprandial 332 at lunch, Dr Cruz notified, new order for metformin x1 now and daily.
[2018-10-14 13:30] VITALS: PULSE 79; RESP 16
[2018-10-14 15:27] VITALS: BP 127/72; PULSE 92; RESP 16; TEMP 37.1; O2SAT 95
--- NOTE | 2018-10-14 15:52 | CHAPLAIN ---
Type of Pastoral Visit ___ Initial Visit _x__ Follow-up Visit ___ On-call Visit ___ General Patient Visit ___ Spiritual Assessment ___ Family Conference ___ Bereavement ___ Rapid Response ___ Code Blue ___ Other (describe below) Pastoral Care Referral From _x__ Patient ___ Family ___ Nurse ___ Physician ___ Machine Fastener ___ Film Crew Member ___ Other (describe below) Sacrament/Intervention _x__ Active listening ___ Anointing ___ Samaritan ___ Bereavement ___ Communion ___ Estephania exploration ___ ___ Life review _x__ Prayer ___ Reconciliation ___ Sacrament of Sick _x__ Supportive presence ___ Wedding ___ Other (describe below) Pastoral Comments patient discusses his status with therapy and signs of progress; pt is focused on his Care Team meeting tomorrow afternoon; pt asks for prayer to accept what the staff decides is best for him; pt has goal to be at home; pt says that staff at hospital is good but his stay has been very long for him
[2018-10-14 17:30] LABS: Bedside Glucose 235 mg/dL (70-110)
[2018-10-14 18:40] VITALS: PULSE 75; RESP 16; O2SAT 94
[2018-10-14 21:11] LABS: Bedside Glucose 137 mg/dL (70-110)
[2018-10-15] MEDS: Octreotide 0.1 MG/ML ML SC ×3 (06:09→22:19)
[2018-10-15] MEDS: Pantoprazole Sodium 40 MG Tablet PO ×2 (06:10→17:46)
[2018-10-15] MEDS: Tamsulosin HCl 0.4 MG Capsule PO (06:10)
[2018-10-15] MEDS: Losartan Potassium 50 MG Tablet PO (06:11)
[2018-10-15] MEDS: Senna/Docusate Sodium 1 Tablet PO ×2 (06:11→17:46)
[2018-10-15 06:13] VITALS: BP 141/77; PULSE 75
[2018-10-15] MEDS: Polyethylene Glycol 3350 17 GM PACKET PO (06:13)
[2018-10-15] MEDS: Metoprolol(XL)Succ 50 MG Tablet PO (06:13)
[2018-10-15] MEDS: Menthol/Lanolin/Calamine/Znox 113 GM Tube 1 APPLIC TOPICAL ×2 (06:19→17:47)
[2018-10-15 06:30] VITALS: PULSE 78; RESP 16
[2018-10-15] MEDS: Ipratropium/Albuterol Sulfate 3 ML AMPUL.NEB INHALATION ×2 (06:30→19:00)
[2018-10-15 06:51] LABS: Bedside Glucose 142 mg/dL (70-110)
[2018-10-15] MEDS: Iron Polysaccharide Complex 150 MG CAPSULE PO (08:36)
--- NOTE | 2018-10-15 09:28 | CASEMGMT ---
Addendum entered by Jessie Arriaga 10/15/18 10:56: Reviewed and approved [employer] student M[employer] documentation. ELVIA GARCIA Original Note: Brief interview for mental status (BIMS) and mood (PHQ-9) completed on this day. BIMS score 08/05. PHQ-9 score 02/14. Amado Deleon social work student
[2018-10-15 11:50] LABS: Bedside Glucose 194 mg/dL (70-110)
--- NOTE | 2018-10-15 14:54 | CASEMGMT ---
Plan of care meeting held. Resident present as well as resident family. No discharge date set at this time. Resident to continue with further care and treatment on the Transitional Care Unit. Resident plans to discharge to home with spouse at time of discharge. Support given. Will continue to follow. ELVIA Anna
[2018-10-15 16:00] VITALS: BP 125/69; PULSE 84; RESP 18; TEMP 36.4; O2SAT 95
[2018-10-15 19:00] VITALS: PULSE 76; RESP 16
[2018-10-15 20:51] LABS: Bedside Glucose 162 mg/dL (70-110)
[2018-10-16] MEDS: Losartan Potassium 50 MG Tablet PO (05:05)
[2018-10-16] MEDS: Senna/Docusate Sodium 1 Tablet PO ×2 (05:05→18:25)
[2018-10-16] MEDS: Polyethylene Glycol 3350 17 GM PACKET PO (05:05)
[2018-10-16] MEDS: Tamsulosin HCl 0.4 MG Capsule PO (05:05)
[2018-10-16] MEDS: Pantoprazole Sodium 40 MG Tablet PO ×2 (05:05→18:25)
[2018-10-16 05:07] VITALS: BP 124/79; PULSE 75
[2018-10-16] MEDS: Metoprolol(XL)Succ 50 MG Tablet PO (05:07)
[2018-10-16] MEDS: Octreotide 0.1 MG/ML ML SC ×2 (05:11→13:15)
[2018-10-16] MEDS: Menthol/Lanolin/Calamine/Znox 113 GM Tube 1 APPLIC TOPICAL ×2 (05:11→18:28)
[2018-10-16 06:51] LABS: Bedside Glucose 145 mg/dL (70-110)
[2018-10-16 07:05] VITALS: PULSE 72; RESP 16; O2SAT 97
[2018-10-16] MEDS: Ipratropium/Albuterol Sulfate 3 ML AMPUL.NEB INHALATION ×3 (07:08→19:36)
[2018-10-16] MEDS: Iron Polysaccharide Complex 150 MG CAPSULE PO (07:45)
[2018-10-16 11:50] LABS: Bedside Glucose 295 mg/dL (70-110)
[2018-10-16 13:24] VITALS: PULSE 76; RESP 18
[2018-10-16 15:10] VITALS: PULSE 84; RESP 16; O2SAT 97
[2018-10-16 15:24] VITALS: BP 137/74; PULSE 82; RESP 18; TEMP 37; O2SAT 95
[2018-10-16 16:50] LABS: Bedside Glucose 302 mg/dL (70-110)
[2018-10-16 19:36] VITALS: PULSE 78; RESP 16
[2018-10-16 21:21] LABS: Bedside Glucose 192 mg/dL (70-110)
[2018-10-17 06:54] VITALS: PULSE 82; RESP 18; O2SAT 96
[2018-10-17] MEDS: Ipratropium/Albuterol Sulfate 3 ML AMPUL.NEB INHALATION ×3 (06:54→19:45)
[2018-10-17 07:00] LABS: Bedside Glucose 142 mg/dL (70-110)
[2018-10-17 07:16] VITALS: PULSE 89
[2018-10-17] MEDS: Tamsulosin HCl 0.4 MG Capsule PO (07:16)
[2018-10-17] MEDS: Metoprolol(XL)Succ 50 MG Tablet PO (07:16)
[2018-10-17] MEDS: Pantoprazole Sodium 40 MG Tablet PO ×2 (07:16→18:04)
[2018-10-17] MEDS: Losartan Potassium 50 MG Tablet PO (07:16)
[2018-10-17] MEDS: Senna/Docusate Sodium 1 Tablet PO ×2 (07:16→18:04)
[2018-10-17] MEDS: Menthol/Lanolin/Calamine/Znox 113 GM Tube 1 APPLIC TOPICAL ×2 (07:19→18:05)
[2018-10-17] MEDS: Iron Polysaccharide Complex 150 MG CAPSULE PO (07:46)
[2018-10-17 11:50] LABS: Bedside Glucose 165 mg/dL (70-110)
[2018-10-17 13:00] VITALS: PULSE 90; RESP 16; O2SAT 96
[2018-10-17 13:04] VITALS: PULSE 86; RESP 18
[2018-10-17 15:19] VITALS: BP 131/74; PULSE 84; RESP 16; TEMP 36.9; O2SAT 97
[2018-10-17 17:10] LABS: Bedside Glucose 156 mg/dL (70-110)
[2018-10-17 19:45] VITALS: PULSE 86; RESP 14; O2SAT 96
[2018-10-17 22:16] LABS: Bedside Glucose 231 mg/dL (70-110)
[2018-10-18] MEDS: Losartan Potassium 50 MG Tablet PO (05:51)
[2018-10-18] MEDS: Tamsulosin HCl 0.4 MG Capsule PO (05:51)
[2018-10-18] MEDS: Pantoprazole Sodium 40 MG Tablet PO ×2 (05:51→16:45)
[2018-10-18] MEDS: Senna/Docusate Sodium 1 Tablet PO ×2 (05:51→16:45)
[2018-10-18 05:54] VITALS: BP 136/85; PULSE 79
[2018-10-18] MEDS: Metoprolol(XL)Succ 50 MG Tablet PO (05:54)
[2018-10-18] MEDS: Polyethylene Glycol 3350 17 GM PACKET PO (05:56)
[2018-10-18] MEDS: Menthol/Lanolin/Calamine/Znox 113 GM Tube 1 APPLIC TOPICAL ×2 (05:56→16:48)
[2018-10-18 05:57] VITALS: BP 136/85; PULSE 79
[2018-10-18 06:20] VITALS: PULSE 88; RESP 16
[2018-10-18] MEDS: Ipratropium/Albuterol Sulfate 3 ML AMPUL.NEB INHALATION ×3 (06:20→18:53)
[2018-10-18 06:45] LABS: Bedside Glucose 109 mg/dL (70-110)
[2018-10-18] MEDS: Iron Polysaccharide Complex 150 MG CAPSULE PO (09:22)
[2018-10-18 11:26] LABS: Bedside Glucose 177 mg/dL (70-110)
[2018-10-18] MEDS: Octreotide 0.1 MG/ML ML SC ×2 (15:04→21:46)
[2018-10-18 15:40] VITALS: BP 139/80; PULSE 87; RESP 18; TEMP 36.7; O2SAT 96
[2018-10-18 17:11] LABS: Bedside Glucose 186 mg/dL (70-110)
[2018-10-18 18:53] VITALS: PULSE 85; RESP 18
[2018-10-18 21:26] LABS: Bedside Glucose 240 mg/dL (70-110)
[2018-10-18 22:00] VITALS: PULSE 88; RESP 18; O2SAT 95
[2018-10-19 05:53] LABS: Absolute Lymphocyte Count 2.18 X10^3/ul (0.83-4.51); Absolute Neutrophil Count 2.8 X10^3/uL (2.0-7.7); Basophil# 0.02 X10^3/uL; Basophil% 0.4 % (0-1); Eosinophil# 0.07 X10^3/uL; Eosinophils% 1.2 % (0-5); Hematocrit 33.5 % (40-54); Hemoglobin 10.3 g/dl (13.0-16.5); Lymphocyte # 2.18 X10^3/ul (4.0); Lymphocyte % 38.4 % (19-41); Mean Corp Hgb Conc 30.7 g/gl (32-36); Mean Corpuscular Hgb 29.5 pg (27.0-32.0); Mean Platelet Vol. 9.3 fl (6.2-12.0); Monocyte# 0.59 X10^3/uL; Monocyte% 10.4 % (0-10); Neutrophil % 49.2 % (47-70); Platelet Count 254 K/mm3 (150-450); RBC Distribution Width CV 17.7 % (11.6-14.6); RBC Distribution Width SD 59.7 fl (35.1-43.9); Red Blood Count 3.49 M/mm3 (4.6-6.2); White Blood Count 5.7 K/mm3 (4.4-11.0)
[2018-10-19 05:54] LABS: POSITIVE COUNT NO; POSITIVE DIFFERENTIAL NO; POSITIVE MORPHOLOGY NO
[2018-10-19 06:15] LABS: Anion Gap 8 (5-15); BUN 17 mg/dL (7-18); BUN/Creat Ratio 13.9 RATIO (10-20); Calcium,Total 8.7 mg/dL (8.5-10.1); Chloride 107 mmol/L (98-107); Creatinine, Serum 1.22 mg/dL (0.70-1.30); EST Glomerular Filtration Rate 61 mL/min (>60); Est Glom Filt Rate - Afr Amer 74 mL/min (>60); Estimated Creatinine Clearance 40.69 ml/min; Glucose 133 mg/dL (74-106); Potassium 3.8 mmol/L (3.5-5.1); Sodium Level 145 mmol/L (136-145)
[2018-10-19] MEDS: Pantoprazole Sodium 40 MG Tablet PO ×2 (06:29→17:04)
[2018-10-19] MEDS: Tamsulosin HCl 0.4 MG Capsule PO (06:29)
[2018-10-19] MEDS: Senna/Docusate Sodium 1 Tablet PO ×2 (06:29→17:04)
[2018-10-19] MEDS: Octreotide 0.1 MG/ML ML SC ×3 (06:30→21:59)
[2018-10-19] MEDS: Losartan Potassium 50 MG Tablet PO (06:30)
[2018-10-19] MEDS: Polyethylene Glycol 3350 17 GM PACKET PO (06:30)
[2018-10-19 06:35] VITALS: PULSE 82
[2018-10-19] MEDS: Metoprolol(XL)Succ 50 MG Tablet PO (06:35)
[2018-10-19] MEDS: Menthol/Lanolin/Calamine/Znox 113 GM Tube 1 APPLIC TOPICAL ×2 (06:39→17:04)
[2018-10-19 06:46] VITALS: PULSE 84; RESP 20
[2018-10-19] MEDS: Ipratropium/Albuterol Sulfate 3 ML AMPUL.NEB INHALATION ×3 (06:46→19:56)
[2018-10-19 07:06] LABS: Bedside Glucose 142 mg/dL (70-110)
[2018-10-19] MEDS: Iron Polysaccharide Complex 150 MG CAPSULE PO (09:34)
[2018-10-19 11:45] LABS: Bedside Glucose 241 mg/dL (70-110)
--- NOTE | 2018-10-19 12:53 | CASEMGMT ---
Reviewed and approved [employer] student documentation. ELVIA Anna
[2018-10-19 13:05] VITALS: PULSE 88; RESP 20
[2018-10-19 14:50] VITALS: PULSE 76; RESP 16; O2SAT 95
[2018-10-19 15:28] VITALS: BP 129/73; PULSE 76; RESP 18; TEMP 36.4; O2SAT 95
[2018-10-19 17:10] LABS: Bedside Glucose 172 mg/dL (70-110)
[2018-10-19 19:55] VITALS: PULSE 86; RESP 16
[2018-10-19 21:15] LABS: Bedside Glucose 192 mg/dL (70-110)
[2018-10-20] MEDS: Menthol/Lanolin/Calamine/Znox 113 GM Tube 1 APPLIC TOPICAL ×2 (06:19→18:07)
[2018-10-20] MEDS: Polyethylene Glycol 3350 17 GM PACKET PO (06:20)
[2018-10-20 06:21] VITALS: BP 142/77; PULSE 80
[2018-10-20] MEDS: Losartan Potassium 50 MG Tablet PO (06:21)
[2018-10-20] MEDS: Tamsulosin HCl 0.4 MG Capsule PO (06:21)
[2018-10-20] MEDS: Pantoprazole Sodium 40 MG Tablet PO ×2 (06:21→18:04)
[2018-10-20] MEDS: Senna/Docusate Sodium 1 Tablet PO ×2 (06:21→18:04)
[2018-10-20] MEDS: Metoprolol(XL)Succ 50 MG Tablet PO (06:21)
[2018-10-20] MEDS: Octreotide 0.1 MG/ML ML SC ×3 (06:27→21:33)
[2018-10-20 06:51] LABS: Bedside Glucose 142 mg/dL (70-110)
[2018-10-20] MEDS: Iron Polysaccharide Complex 150 MG CAPSULE PO (08:44)
[2018-10-20 11:51] LABS: Bedside Glucose 152 mg/dL (70-110)
--- NOTE | 2018-10-20 12:46 | NURSING ---
pt diabetic, spoke with lorena, customer service representative teacher regarding Ensure vs. glucerna. order change to glucerna. She is also recommending appetite stimulant d/t wt loss. will update dr greer
[2018-10-20 13:21] VITALS: PULSE 72; RESP 18; O2SAT 94
[2018-10-20] MEDS: Ipratropium/Albuterol Sulfate 3 ML AMPUL.NEB INHALATION (13:21)
[2018-10-20 16:00] VITALS: BP 130/70; PULSE 88; RESP 16; TEMP 36.7; O2SAT 96
[2018-10-20 17:31] LABS: Bedside Glucose 167 mg/dL (70-110)
[2018-10-20] MEDS: Glucerna Shake 120 ML LIQUID PO ×2 (18:05→21:33)
[2018-10-20] MEDS: Mirtazapine 15 MG Tablet 7.5 MG PO (21:33)
[2018-10-20 21:36] LABS: Bedside Glucose 210 mg/dL (70-110)
[2018-10-21] MEDS: Octreotide 0.1 MG/ML ML SC ×3 (06:33→22:09)
[2018-10-21] MEDS: Glucerna Shake 120 ML LIQUID PO (06:33)
[2018-10-21] MEDS: Tamsulosin HCl 0.4 MG Capsule PO (06:34)
[2018-10-21] MEDS: Losartan Potassium 50 MG Tablet PO (06:34)
[2018-10-21] MEDS: Polyethylene Glycol 3350 17 GM PACKET PO (06:34)
[2018-10-21 06:35] VITALS: PULSE 68; RESP 18; O2SAT 97
[2018-10-21] MEDS: Ipratropium/Albuterol Sulfate 3 ML AMPUL.NEB INHALATION ×2 (06:35→18:48)
[2018-10-21] MEDS: Pantoprazole Sodium 40 MG Tablet PO ×2 (06:35→17:03)
[2018-10-21] MEDS: Senna/Docusate Sodium 1 Tablet PO ×2 (06:35→17:03)
[2018-10-21] MEDS: Menthol/Lanolin/Calamine/Znox 113 GM Tube 1 APPLIC TOPICAL ×2 (06:36→17:03)
[2018-10-21 06:41] VITALS: BP 140/78; PULSE 67
[2018-10-21] MEDS: Metoprolol(XL)Succ 50 MG Tablet PO (06:41)
[2018-10-21 06:51] LABS: Bedside Glucose 130 mg/dL (70-110)
[2018-10-21] MEDS: Iron Polysaccharide Complex 150 MG CAPSULE PO (08:20)
[2018-10-21 11:56] LABS: Bedside Glucose 231 mg/dL (70-110)
[2018-10-21 16:00] VITALS: BP 127/78; PULSE 80; RESP 16; TEMP 36.3; O2SAT 95
--- NOTE | 2018-10-21 17:00 | CASEMGMT ---
Social Work Advanced directives in chart noted to not have been signed by resident. Met with resident and resident family in room. Completed new documented for Health Care Power of civil litigation attorney as well as Living Will. Original given to resident and resident family and copy placed on resident chart. Aissatou PATTERSON MSW
[2018-10-21 17:16] LABS: Bedside Glucose 176 mg/dL (70-110)
[2018-10-21 18:48] VITALS: PULSE 87; RESP 18
[2018-10-21 21:16] LABS: Bedside Glucose 229 mg/dL (70-110)
[2018-10-21 23:17] VITALS: PULSE 80; RESP 18; O2SAT 93
[2018-10-22] MEDS: Glucerna Shake 120 ML LIQUID PO (06:13)
[2018-10-22] MEDS: Tamsulosin HCl 0.4 MG Capsule PO (06:14)
[2018-10-22] MEDS: Pantoprazole Sodium 40 MG Tablet PO ×2 (06:14→17:17)
[2018-10-22] MEDS: Senna/Docusate Sodium 1 Tablet PO ×2 (06:14→17:17)
[2018-10-22 06:15] VITALS: BP 145/75; PULSE 75
[2018-10-22] MEDS: Polyethylene Glycol 3350 17 GM PACKET PO (06:15)
[2018-10-22] MEDS: Metoprolol(XL)Succ 50 MG Tablet PO (06:15)
[2018-10-22] MEDS: Losartan Potassium 50 MG Tablet PO (06:16)
[2018-10-22] MEDS: Menthol/Lanolin/Calamine/Znox 113 GM Tube 1 APPLIC TOPICAL ×2 (06:17→17:17)
[2018-10-22] MEDS: Octreotide 0.1 MG/ML ML SC ×3 (06:18→21:58)
[2018-10-22 06:51] LABS: Bedside Glucose 128 mg/dL (70-110)
[2018-10-22 08:20] VITALS: PULSE 81; RESP 16; O2SAT 94
[2018-10-22] MEDS: Ipratropium/Albuterol Sulfate 3 ML AMPUL.NEB INHALATION ×3 (08:20→19:18)
[2018-10-22] MEDS: Iron Polysaccharide Complex 150 MG CAPSULE PO (08:44)
[2018-10-22 11:01] LABS: Bedside Glucose 139 mg/dL (70-110)
[2018-10-22 13:30] VITALS: PULSE 85; RESP 16; O2SAT 95
[2018-10-22 15:00] VITALS: PULSE 110; RESP 18; O2SAT 92
[2018-10-22 15:46] VITALS: BP 130/73; PULSE 105; RESP 18; TEMP 37.4; O2SAT 93
[2018-10-22 17:01] LABS: Bedside Glucose 192 mg/dL (70-110)
[2018-10-22 19:18] VITALS: PULSE 78; RESP 16
[2018-10-22 21:31] LABS: Bedside Glucose 173 mg/dL (70-110)
--- NOTE | 2018-10-22 22:10 | NURSING ---
Addendum entered by Kari Painter 10/22/18 22:34: Dr. Cruz notified. New orders given for respiratory panel, daily weight, and Amoxicillin 500mg TID x 10 day first dose given now for sinusitis. Original Note: Addendum entered by Cynthia Banda 10/22/18 22:15: Eriberto Mata notified Original Note: This nurse was administering meds as ordered noticed pt had swelling around both eyes and redness to cheek. Listen to abdomen are normative in all four quadrant. Lungs clear A&P bilaterally, heart sounds regular, +1 pitting edema in BLE. VS BP- 139/81, P-95, R-18, Temp-99.1 oral.
[2018-10-23] MEDS: AMOXICILLIN 500 MG CAPSULE PO ×4 (00:14→21:35)
[2018-10-23] MEDS: Senna/Docusate Sodium 1 Tablet PO ×2 (06:05→18:49)
[2018-10-23] MEDS: Tamsulosin HCl 0.4 MG Capsule PO (06:05)
[2018-10-23] MEDS: Losartan Potassium 50 MG Tablet PO (06:05)
[2018-10-23] MEDS: Glucerna Shake 120 ML LIQUID PO ×3 (06:05→18:49)
[2018-10-23] MEDS: Pantoprazole Sodium 40 MG Tablet PO ×2 (06:05→18:49)
[2018-10-23] MEDS: Polyethylene Glycol 3350 17 GM PACKET PO (06:05)
[2018-10-23] MEDS: Octreotide 0.1 MG/ML ML SC ×3 (06:05→21:35)
[2018-10-23] MEDS: Menthol/Lanolin/Calamine/Znox 113 GM Tube 1 APPLIC TOPICAL ×2 (06:13→18:53)
[2018-10-23 06:14] VITALS: BP 119/71; PULSE 95
[2018-10-23] MEDS: Metoprolol(XL)Succ 50 MG Tablet PO (06:14)
[2018-10-23 06:47] VITALS: PULSE 75; RESP 16
[2018-10-23] MEDS: Ipratropium/Albuterol Sulfate 3 ML AMPUL.NEB INHALATION ×3 (06:47→19:26)
[2018-10-23 07:11] LABS: Bedside Glucose 136 mg/dL (70-110)
[2018-10-23] MEDS: Iron Polysaccharide Complex 150 MG CAPSULE PO (09:49)
[2018-10-23 11:41] LABS: Bedside Glucose 222 mg/dL (70-110)
[2018-10-23 13:12] VITALS: PULSE 78; RESP 20
--- NOTE | 2018-10-23 15:50 | NURSING ---
Dr. Cruz notified of resp panel results, nno.
[2018-10-23 16:00] VITALS: BP 111/63; PULSE 76; RESP 16; TEMP 37.1; O2SAT 94
[2018-10-23 17:16] LABS: Bedside Glucose 262 mg/dL (70-110)
[2018-10-23 18:42] LABS: Bacteria 0 SEEN /hpf (None Seen); Red Blood Cells-Urine 0 SEEN /hpf (0-5); Squamous Epithelial Cells - UA 0 SEEN /hpf (0-5)
[2018-10-23 18:44] LABS: Color, Urine Yellow (Yellow); Glucose, Dipstick 250 mg/dl (Normal); Ketone-Dipstick Negative (Negative); Leukocyte Esterase-Dipstick 25 /ul (Negative); Nitrite-Dipstick Negative (Negative); Occult Blood-Urine Negative /ul (Negative); Protein-Dipstick 30 mg/dl (Negative); Urine Bilirubin Dipstick Negative (Negative); Urine Clarity Clear (Clear); Urine Urobilinogen Normal (Normal)
--- NOTE | 2018-10-23 18:50 | NURSING ---
Pt refusing straight cath for sample for UA, attempted to collect clean catch specimen, patient not very accommodating during sample collection.
[2018-10-23 18:56] LABS: Mucous, Urine 1+ /hpf (<or=2+); White Blood Cells 0-5 SEEN /hpf (0-5)
[2018-10-23 19:26] VITALS: PULSE 84; RESP 18; O2SAT 95
[2018-10-23 20:35] VITALS: PULSE 92; O2SAT 96
[2018-10-23 21:41] LABS: Bedside Glucose 208 mg/dL (70-110)
[2018-10-24] MEDS: AMOXICILLIN 500 MG CAPSULE PO ×3 (05:30→21:16)
[2018-10-24] MEDS: Menthol/Lanolin/Calamine/Znox 113 GM Tube 1 APPLIC TOPICAL ×2 (05:30→18:52)
[2018-10-24 05:31] VITALS: BP 113/65; PULSE 81
[2018-10-24] MEDS: Tamsulosin HCl 0.4 MG Capsule PO (05:31)
[2018-10-24] MEDS: Pantoprazole Sodium 40 MG Tablet PO ×2 (05:31→18:50)
[2018-10-24] MEDS: Senna/Docusate Sodium 1 Tablet PO ×2 (05:31→18:53)
[2018-10-24] MEDS: Metoprolol(XL)Succ 50 MG Tablet PO (05:31)
[2018-10-24] MEDS: Glucerna Shake 120 ML LIQUID PO ×3 (05:31→21:16)
[2018-10-24] MEDS: Polyethylene Glycol 3350 17 GM PACKET PO (05:31)
[2018-10-24] MEDS: Losartan Potassium 50 MG Tablet PO (05:31)
[2018-10-24] MEDS: Octreotide 0.1 MG/ML ML SC ×3 (05:38→21:24)
[2018-10-24 06:18] VITALS: PULSE 80; RESP 16
[2018-10-24] MEDS: Ipratropium/Albuterol Sulfate 3 ML AMPUL.NEB INHALATION ×3 (06:18→19:12)
[2018-10-24 07:06] LABS: Bedside Glucose 154 mg/dL (70-110)
[2018-10-24] MEDS: Iron Polysaccharide Complex 150 MG CAPSULE PO (08:28)
--- NOTE | 2018-10-24 10:30 | NURSING ---
Dr. Cruz reviewed UA results, NNO.
[2018-10-24 11:26] LABS: Bedside Glucose 271 mg/dL (70-110)
[2018-10-24 12:51] VITALS: PULSE 80; RESP 16
[2018-10-24 15:36] VITALS: BP 120/68; PULSE 86; RESP 16; TEMP 36.8; O2SAT 94
[2018-10-24 16:56] LABS: Bedside Glucose 156 mg/dL (70-110)
[2018-10-24 19:12] VITALS: PULSE 90; RESP 18
[2018-10-24 21:06] LABS: Bedside Glucose 235 mg/dL (70-110)
[2018-10-24 21:17] VITALS: PULSE 85; O2SAT 97
[2018-10-25] MEDS: Polyethylene Glycol 3350 17 GM PACKET PO (06:06)
[2018-10-25] MEDS: Losartan Potassium 50 MG Tablet PO (06:06)
[2018-10-25] MEDS: AMOXICILLIN 500 MG CAPSULE PO ×3 (06:06→21:34)
[2018-10-25] MEDS: Menthol/Lanolin/Calamine/Znox 113 GM Tube 1 APPLIC TOPICAL ×2 (06:06→17:36)
[2018-10-25 06:07] VITALS: BP 114/56; PULSE 78
[2018-10-25] MEDS: Metoprolol(XL)Succ 50 MG Tablet PO (06:07)
[2018-10-25] MEDS: Pantoprazole Sodium 40 MG Tablet PO ×2 (06:07→17:34)
[2018-10-25] MEDS: Tamsulosin HCl 0.4 MG Capsule PO (06:07)
[2018-10-25] MEDS: Octreotide 0.1 MG/ML ML SC ×3 (06:13→21:41)
[2018-10-25 06:36] LABS: Bedside Glucose 145 mg/dL (70-110)
[2018-10-25] MEDS: Ipratropium/Albuterol Sulfate 3 ML AMPUL.NEB INHALATION ×2 (07:10→20:21)
[2018-10-25 07:24] VITALS: PULSE 82; RESP 19
[2018-10-25] MEDS: Iron Polysaccharide Complex 150 MG CAPSULE PO (07:35)
[2018-10-25 10:45] VITALS: PULSE 76; RESP 16; O2SAT 98
[2018-10-25 11:31] LABS: Bedside Glucose 277 mg/dL (70-110)
[2018-10-25] MEDS: Glucerna Shake 120 ML LIQUID PO ×2 (11:37→21:40)
--- NOTE | 2018-10-25 15:26 | CASEMGMT ---
Social Work Spoke with resident and resident family in room. Resident requesting for discharge date to be set for 10/28/18. Spoke with team, team is agreeable to discharge date and recommending for resident to continue with physical therapy and to have 24hr care within the home at time of discharge. Resident and resident family voicing understanding to recommendations. Resident requesting for outpatient physical therapy to be set up through [facility] through [facility] - [phone]. Resident does not want to have home therapy. Resident to discharge to home with spouse. Resident reporting to have all needed durable medical equipment already set up within the home. Resident family to provide transportation home for resident at time of discharge. Support given. Telephone call to [facility], mail left. Will continue to follow to set up appointment. Proposed discharge date: 10/28/18 PLAN: Discharge to home with spouse and outpatient physical therapy. Aissatou GAN, YESENIA
[2018-10-25 15:37] VITALS: BP 117/70; PULSE 88; RESP 14; TEMP 36.6; O2SAT 97
[2018-10-25 16:02] LABS: Bedside Glucose 203 mg/dL (70-110)
--- NOTE | 2018-10-25 16:42 | CASEMGMT ---
Social Work Telephone call from [facility] [place] Office (P:[phone]; F:[phone]). Outpatient physical therapy set up for 11/01/18 @ 12:15pm. Order to be faxed when obtained. Resident agreeable to appointment time and date. Appointment reminder provided to resident. Proposed discharge date: 10/28/18 PLAN: Discharge to home with spouse and outpatient physical therapy. Aissatou GAN, YESENIA
[2018-10-25] MEDS: Senna/Docusate Sodium 1 Tablet PO (17:35)
--- NOTE | 2018-10-25 20:21 | PCM.DC ---
- Discharge Diagnoses Current Active Problems: Current Active and Chronic Problems Upper gastrointestinal bleed (Acute) Multiple falls (Chronic) Debility (Chronic) Healthcare-associated pneumonia (Chronic) Intra-abdominal lymphadenopathy (Chronic) Primary neuroendocrine carcinoma of stomach (Acute) You will use the following diet at home:: No restrictions, Regular Your food should be the consistency of: Regular Your liquids should be the consistency of: Regular/Thin Discharge Activity: Return to Normal Activity, May Shower, Use Walker May resume sexual activity in: No Restrictions Weight Bearing Status: Weight bearing as tolerated Call your doctor if you observe: Fever of 101 or Higher, Inability to urinate, Inability to have a bowel movement, Shortness of breath, Chest pain, Uncontrolled pain Allergies/Adverse Reactions: Allergies Iodinated Contrast- Oral and IV Dye [CONTRASTS] Adverse Reaction (Verified 09/30/18 16:13) Unknown NSAIDS (Non-Steroidal Anti-Inflamma Adverse Reaction (Verified 09/30/18 16:13) GI bleed Medications to take at Discharge Menthol/Lanolin/Calamine/Znox [Calmoseptine Ointment] 1 applic TOPICAL BID 09/30/18 Mineral Oil/Petrolatum,White [Eucerin] 1 applic TOPICAL DAILY PRN PRN 09/30/18 Acetaminophen [Tylenol] 1,000 mg PO Q6H PRN PRN tablet 10/25/18 Ipratropium/Albuterol Sulfate [Duoneb] 3 ml INHALATION Q6HWA.RT PRN 30 Days #120 ampul.neb 10/25/18 Iron Polysaccharide Complex [Ferrex 150] 150 mg PO DAILYCM #30 cap 10/25/18 Losartan Potassium [Cozaar] 50 mg PO DAILY #30 tab 10/25/18 Metformin HCl [Glucophage] 500 mg PO BIDCM #60 tab 10/25/18 Metoprolol(XL)Succ [Toprol Xl (Beta Radha)] 50 mg PO DAILY #30 tab 10/25/18 Pantoprazole Sodium [Protonix] 40 mg PO BID #60 tab 10/25/18 Tamsulosin HCl 0.4 mg PO DAILY #30 cap 10/25/18 The following prescriptions were given: Ipratropium/Albuterol Sulfate [Duoneb] 3 ml INHALATION Q6HWA.RT PRN 30 Days #120 ampul.neb PRN Reason: Shortness Of Breath Iron Polysaccharide Complex [Ferrex 150] 150 mg PO DAILYCM #30 cap Losartan Potassium [Cozaar] 50 mg PO DAILY #30 tab Metoprolol(XL)Succ [Toprol Xl (Beta Radha)] 50 mg PO DAILY #30 tab Tamsulosin HCl 0.4 mg PO DAILY #30 cap Metformin HCl [Glucophage] 500 mg PO BIDCM #60 tab Pantoprazole Sodium [Protonix] 40 mg PO BID #60 tab Primary Care Physician: Care Physician,No Primary [Primary Care Provider] - Please follow up with your Primary Care Physician in: Froylan Burkett MD in 1 week. [phone] Test Results: Test results from this visit will be discussed in further detail at your follow-up appointment, if applicable. Please Follow Up With: Shai Ling DO When: [phone] in 1 week. Proposed Discharge Date: 10/28/18
[2018-10-25 20:22] VITALS: PULSE 85; RESP 18
--- NOTE | 2018-10-25 20:24 | DCINST_ITS ---
- Discharge Diagnoses Current Active Problems: Current Active and Chronic Problems Upper gastrointestinal bleed (Acute) Multiple falls (Chronic) Debility (Chronic) Healthcare-associated pneumonia (Chronic) Intra-abdominal lymphadenopathy (Chronic) Primary neuroendocrine carcinoma of stomach (Acute) You will use the following diet at home:: No restrictions, Regular Your food should be the consistency of: Regular Your liquids should be the consistency of: Regular/Thin Discharge Activity: Return to Normal Activity, May Shower, Use Walker May resume sexual activity in: No Restrictions Weight Bearing Status: Weight bearing as tolerated Call your doctor if you observe: Fever of 101 or Higher, Inability to urinate, Inability to have a bowel movement, Shortness of breath, Chest pain, Uncontrolled pain Allergies/Adverse Reactions: Allergies Iodinated Contrast- Oral and IV Dye [CONTRASTS] Adverse Reaction (Verified 09/30/18 16:13) Unknown NSAIDS (Non-Steroidal Anti-Inflamma Adverse Reaction (Verified 09/30/18 16:13) GI bleed Medications to take at Discharge Menthol/Lanolin/Calamine/Znox [Calmoseptine Ointment] 1 applic TOPICAL BID 09/30/18 Mineral Oil/Petrolatum,White [Eucerin] 1 applic TOPICAL DAILY PRN PRN 09/30/18 Acetaminophen [Tylenol] 1,000 mg PO Q6H PRN PRN tablet 10/25/18 Ipratropium/Albuterol Sulfate [Duoneb] 3 ml INHALATION Q6HWA.RT PRN 30 Days #120 ampul.neb 10/25/18 Iron Polysaccharide Complex [Ferrex 150] 150 mg PO DAILYCM #30 cap 10/25/18 Losartan Potassium [Cozaar] 50 mg PO DAILY #30 tab 10/25/18 Metformin HCl [Glucophage] 500 mg PO BIDCM #60 tab 10/25/18 Metoprolol(XL)Succ [Toprol Xl (Beta Radha)] 50 mg PO DAILY #30 tab 10/25/18 Pantoprazole Sodium [Protonix] 40 mg PO BID #60 tab 10/25/18 Tamsulosin HCl 0.4 mg PO DAILY #30 cap 10/25/18 The following prescriptions were given: Ipratropium/Albuterol Sulfate [Duoneb] 3 ml INHALATION Q6HWA.RT PRN 30 Days #120 ampul.neb PRN Reason: Shortness Of Breath Iron Polysaccharide Complex [Ferrex 150] 150 mg PO DAILYCM #30 cap Losartan Potassium [Cozaar] 50 mg PO DAILY #30 tab Metoprolol(XL)Succ [Toprol Xl (Beta Radah)] 50 mg PO DAILY #30 tab Tamsulosin HCl 0.4 mg PO DAILY #30 cap Metformin HCl [Glucophage] 500 mg PO BIDCM #60 tab Pantoprazole Sodium [Protonix] 40 mg PO BID #60 tab Primary Care Physician: Care Physician,No Primary [Primary Care Provider] - Please follow up with your Primary Care Physician in: Froylan Burkett MD in 1 week. [phone] Test Results: Test results from this visit will be discussed in further detail at your follow- up appointment, if applicable. Please Follow Up With: Shai Ling DO When: [phone] in 1 week. Proposed Discharge Date: 10/28/18
--- NOTE | 2018-10-25 20:24 | PCM.DC.SUM ---
Discharge Date and Diagnosis - Problem List Patient Problems: Active and Suspected Problems Upper gastrointestinal bleed (Acute) Primary neuroendocrine carcinoma of stomach (Acute) Date of Admission: 10/04/18 Date of Discharge: 10/28/18 - Primary Discharge Diagnosis Active and Suspected Problems Upper gastrointestinal bleed (Acute) Primary neuroendocrine carcinoma of stomach (Acute) - Secondary Discharge Diagnosis Chronic Problems Multiple falls (Chronic) Debility (Chronic) Healthcare-associated pneumonia (Chronic) Intra-abdominal lymphadenopathy (Chronic) Chronic obstructive pulmonary disease (Chronic) Bronchiectasis (Chronic) Gastric mass (Chronic) Diabetes mellitus (Chronic) Hypertension (Chronic) Hyperlipidemia (Chronic) GERD (gastroesophageal reflux disease) (Chronic) Hospital Course and Treatment Imaging Results: 10/04/18 16:30 Diet: Regular Diet Clinical Impression(s) from Imaging Studies Chest X-Ray 10/06/18 19:20 IMPRESSION: Left pleural effusion is again noted. Bibasilar interstitial prominence. Possible left perihilar infiltrate. Electronically Signed: Vitor Maddox DO at 23:56 EST Tel [phone], Service support , Labs (Last 48 Hours) 10/23/18 10/24/18 10/24/18 21:28 07:01 11:20 POC Glucose 208 H 154 H 271 H 10/24/18 10/24/18 10/25/18 16:50 20:54 06:33 POC Glucose 156 H 235 H 145 H 10/25/18 10/25/18 11:19 15:50 POC Glucose 277 H 203 H Operations: None Procedures: None Summary of Care Provided: The patient is a 78 year old Male with below past medical history significant for gastric mass hospitalized for hypovolumic shock secondary to upper gastrointestinal bleed from duodenal ulcer, admitted to TCU with debility, here for rehabilitation, strengthening, prior to disposition determination. 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 Shai Ling at [facility] to receive octreotide injections every month. Once octreotide ineffective, refer resident to hospice at home, or retirement care facility with hospice. His spouse is unable to care for him if he becomes debilitated. Discharge home with spouse, and outpatient physical therapy. Patient Problems: Active and Suspected Problems Upper gastrointestinal bleed (Acute) Primary neuroendocrine carcinoma of stomach (Acute) - Physical Exam Vital Signs Temp Pulse Resp BP Pulse Ox 97.8 F 85 18 117/70 97 10/25/18 15:37 10/25/18 20:22 10/25/18 20:22 10/25/18 15:37 10/25/18 15:37 Oxygen Delivery Method Room Air Weight: 56.926 kg Body Mass Index (BMI) 20.3 Intake and Output for Last 24 Hours 10/23/18 10/24/18 10/25/18 23:59 23:59 23:59 Intake Total 540 / 540 460 / 460 780 / 780 Balance 540 / 540 460 / 460 780 / 780 Microbiology Past 72 Hours 10/23/18 00:45 Respiratory Panel (PCR) - Final Mucosa - Nasopharyngeal POC Glucose 10/25/18 10/25/18 10/25/18 15:50 11:19 06:33 POC Glucose 203 H 277 H 145 H 10/24/18 20:54 POC Glucose 235 H Discharge Diet: No Restrictions Discharge Activity: Return to Normal Activity, May Shower, Use Walker May resume sexual activity in: No Restrictions Weight Bearing Status: Weight bearing as tolerated Call your doctor if you observe: Fever of 101 or Higher, Inability to urinate, Inability to have a bowel movement, Shortness of breath, Chest pain, Uncontrolled pain Home Medications: Medications to take at Discharge Menthol/Lanolin/Calamine/Znox [Calmoseptine Ointment] 1 applic TOPICAL BID 09/30/18 Mineral Oil/Petrolatum,White [Eucerin] 1 applic TOPICAL DAILY PRN PRN 09/30/18 Acetaminophen [Tylenol] 1,000 mg PO Q6H PRN PRN tablet 10/25/18 Ipratropium/Albuterol Sulfate [Duoneb] 3 ml INHALATION Q6HWA.RT PRN 30 Days #120 ampul.neb 10/25/18 Iron Polysaccharide Complex [Ferrex 150] 150 mg PO DAILYCM #30 cap 10/25/18 Losartan Potassium [Cozaar] 50 mg PO DAILY #30 tab 10/25/18 Metformin HCl [Glucophage] 500 mg PO BIDCM #60 tab 10/25/18 Metoprolol(XL)Succ [Toprol Xl (Beta Radha)] 50 mg PO DAILY #30 tab 10/25/18 Pantoprazole Sodium [Protonix] 40 mg PO BID #60 tab 10/25/18 Tamsulosin HCl 0.4 mg PO DAILY #30 cap 10/25/18 Following Prescrptions Were Given to Patient: Ipratropium/Albuterol Sulfate [Duoneb] 3 ml INHALATION Q6HWA.RT PRN 30 Days #120 ampul.neb PRN Reason: Shortness Of Breath Iron Polysaccharide Complex [Ferrex 150] 150 mg PO DAILYCM #30 cap Losartan Potassium [Cozaar] 50 mg PO DAILY #30 tab Metoprolol(XL)Succ [Toprol Xl (Beta Radha)] 50 mg PO DAILY #30 tab Tamsulosin HCl 0.4 mg PO DAILY #30 cap Metformin HCl [Glucophage] 500 mg PO BIDCM #60 tab Pantoprazole Sodium [Protonix] 40 mg PO BID #60 tab Primary Care Physician: Care Physician,No Primary [Primary Care Provider] - Please follow up with your Primary Care Physician in: Froylan Burkett MD in 1 week. [phone] Please Follow Up With: Shai Ling DO When: [phone] in 1 week. Disposition: Home Minutes spent on discharge:: 30 Patient Condition:: Poor Medical Necessity - Tobacco Use Smoking Status: Former smoker - 30 pack year smoking history. Tobacco Use: Non-smoker Meaningful Use Info Meaningful Use Diagnoses (Choose all that apply): None applicable
--- NOTE | 2018-10-25 20:27 | DS.PCM_ITS ---
Discharge Date and Diagnosis - Problem List Patient Problems: Active and Suspected Problems Upper gastrointestinal bleed (Acute) Primary neuroendocrine carcinoma of stomach (Acute) Date of Admission: 10/04/18 Date of Discharge: 10/28/18 - Primary Discharge Diagnosis Active and Suspected Problems Upper gastrointestinal bleed (Acute) Primary neuroendocrine carcinoma of stomach (Acute) - Secondary Discharge Diagnosis Chronic Problems Multiple falls (Chronic) Debility (Chronic) Healthcare-associated pneumonia (Chronic) Intra-abdominal lymphadenopathy (Chronic) Chronic obstructive pulmonary disease (Chronic) Bronchiectasis (Chronic) Gastric mass (Chronic) Diabetes mellitus (Chronic) Hypertension (Chronic) Hyperlipidemia (Chronic) GERD (gastroesophageal reflux disease) (Chronic) Hospital Course and Treatment Imaging Results: 10/04/18 16:30 Diet: Regular Diet Clinical Impression(s) from Imaging Studies Chest X-Ray 10/06/18 19:20 IMPRESSION: Left pleural effusion is again noted. Bibasilar interstitial prominence. Possible left perihilar infiltrate. Electronically Signed: Vitor Maddox DO at 23:56 EST Tel [phone], Service support , Labs (Last 48 Hours) 10/23/18 10/24/18 10/24/18 21:28 07:01 11:20 POC Glucose 208 H 154 H 271 H 10/24/18 10/24/18 10/25/18 16:50 20:54 06:33 POC Glucose 156 H 235 H 145 H 10/25/18 10/25/18 11:19 15:50 POC Glucose 277 H 203 H Operations: None Procedures: None Summary of Care Provided: The patient is a 78 year old Male with below past medical history significant for gastric mass hospitalized for hypovolumic shock secondary to upper gastrointestinal bleed from duodenal ulcer, admitted to TCU with debility, here for rehabilitation, strengthening, prior to disposition determination. 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 Shai Ling at [facility] to receive octreotide injections every month. Once octreotide ineffective, refer resident to hospice at home, or retirement care facility with hospice. His spouse is unable to care for him if he becomes debilitated. Discharge home with spouse, and outpatient physical therapy. Patient Problems: Active and Suspected Problems Upper gastrointestinal bleed (Acute) Primary neuroendocrine carcinoma of stomach (Acute) - Physical Exam Vital Signs Temp Pulse Resp BP Pulse Ox 97.8 F 85 18 117/70 97 10/25/18 15:37 10/25/18 20:22 10/25/18 20:22 10/25/18 15:37 10/25/18 15:37 Oxygen Delivery Method Room Air Weight: 56.926 kg Body Mass Index (BMI) 20.3 Intake and Output for Last 24 Hours 10/23/18 10/24/18 10/25/18 23:59 23:59 23:59 Intake Total 540 / 540 460 / 460 780 / 780 Balance 540 / 540 460 / 460 780 / 780 Microbiology Past 72 Hours 10/23/18 00:45 Respiratory Panel (PCR) - Final Mucosa - Nasopharyngeal POC Glucose 10/25/18 10/25/18 10/25/18 15:50 11:19 06:33 POC Glucose 203 H 277 H 145 H 10/24/18 20:54 POC Glucose 235 H Discharge Diet: No Restrictions Discharge Activity: Return to Normal Activity, May Shower, Use Walker May resume sexual activity in: No Restrictions Weight Bearing Status: Weight bearing as tolerated Call your doctor if you observe: Fever of 101 or Higher, Inability to urinate, Inability to have a bowel movement, Shortness of breath, Chest pain, Uncontrolled pain Home Medications: Medications to take at Discharge Menthol/Lanolin/Calamine/Znox [Calmoseptine Ointment] 1 applic TOPICAL BID 09/30/18 Mineral Oil/Petrolatum,White [Eucerin] 1 applic TOPICAL DAILY PRN PRN 09/30/18 Acetaminophen [Tylenol] 1,000 mg PO Q6H PRN PRN tablet 10/25/18 Ipratropium/Albuterol Sulfate [Duoneb] 3 ml INHALATION Q6HWA.RT PRN 30 Days #120 ampul.neb 10/25/18 Iron Polysaccharide Complex [Ferrex 150] 150 mg PO DAILYCM #30 cap 10/25/18 Losartan Potassium [Cozaar] 50 mg PO DAILY #30 tab 10/25/18 Metformin HCl [Glucophage] 500 mg PO BIDCM #60 tab 10/25/18 Metoprolol(XL)Succ [Toprol Xl (Beta Radha)] 50 mg PO DAILY #30 tab 10/25/18 Pantoprazole Sodium [Protonix] 40 mg PO BID #60 tab 10/25/18 Tamsulosin HCl 0.4 mg PO DAILY #30 cap 10/25/18 Following Prescrptions Were Given to Patient: Ipratropium/Albuterol Sulfate [Duoneb] 3 ml INHALATION Q6HWA.RT PRN 30 Days #120 ampul.neb PRN Reason: Shortness Of Breath Iron Polysaccharide Complex [Ferrex 150] 150 mg PO DAILYCM #30 cap Losartan Potassium [Cozaar] 50 mg PO DAILY #30 tab Metoprolol(XL)Succ [Toprol Xl (Beta Radha)] 50 mg PO DAILY #30 tab Tamsulosin HCl 0.4 mg PO DAILY #30 cap Metformin HCl [Glucophage] 500 mg PO BIDCM #60 tab Pantoprazole Sodium [Protonix] 40 mg PO BID #60 tab Primary Care Physician: Care Physician,No Primary [Primary Care Provider] - Please follow up with your Primary Care Physician in: Froylan Burkett MD in 1 week. [phone] Please Follow Up With: Shai Ling DO When: [phone] in 1 week. Disposition: Home Minutes spent on discharge:: 30 Patient Condition:: Poor Medical Necessity - Tobacco Use Smoking Status: Former smoker - 30 pack year smoking history. Tobacco Use: Non-smoker Meaningful Use Info Meaningful Use Diagnoses (Choose all that apply): None applicable
[2018-10-25 20:56] LABS: Bedside Glucose 168 mg/dL (70-110)
[2018-10-26 06:57] LABS: Bedside Glucose 136 mg/dL (70-110)
[2018-10-26 07:13] VITALS: PULSE 79; RESP 18; O2SAT 98
[2018-10-26] MEDS: Ipratropium/Albuterol Sulfate 3 ML AMPUL.NEB INHALATION ×2 (07:13→19:54)
[2018-10-26] MEDS: Tamsulosin HCl 0.4 MG Capsule PO (07:17)
[2018-10-26] MEDS: Glucerna Shake 120 ML LIQUID PO ×2 (07:17→11:52)
[2018-10-26] MEDS: Polyethylene Glycol 3350 17 GM PACKET PO (07:17)
[2018-10-26] MEDS: Losartan Potassium 50 MG Tablet PO (07:17)
[2018-10-26] MEDS: Senna/Docusate Sodium 1 Tablet PO ×2 (07:18→17:38)
[2018-10-26] MEDS: AMOXICILLIN 500 MG CAPSULE PO ×3 (07:18→21:47)
[2018-10-26] MEDS: Pantoprazole Sodium 40 MG Tablet PO ×2 (07:18→17:38)
[2018-10-26] MEDS: Menthol/Lanolin/Calamine/Znox 113 GM Tube 1 APPLIC TOPICAL ×2 (07:18→17:39)
[2018-10-26] MEDS: Octreotide 0.1 MG/ML ML SC ×3 (07:20→21:47)
[2018-10-26 07:25] VITALS: BP 132/76; PULSE 74
[2018-10-26] MEDS: Metoprolol(XL)Succ 50 MG Tablet PO (07:25)
[2018-10-26] MEDS: Iron Polysaccharide Complex 150 MG CAPSULE PO (07:43)
--- NOTE | 2018-10-26 09:31 | CASEMGMT ---
Social Work Faxed order for outpatient physical therapy to [facility]. Proposed discharge date: 10/28/18 PLAN: Discharge to home with spouse and outpatient physical therapy. Aissatou GAN, YESENIA
[2018-10-26 11:41] LABS: Bedside Glucose 131 mg/dL (70-110)
[2018-10-26 15:37] VITALS: BP 129/62; PULSE 74; RESP 18; TEMP 37; O2SAT 97
[2018-10-26 16:52] LABS: Bedside Glucose 110 mg/dL (70-110)
[2018-10-26 19:54] VITALS: PULSE 78; RESP 18
[2018-10-26 21:22] LABS: Bedside Glucose 223 mg/dL (70-110)
[2018-10-26 21:48] VITALS: O2SAT 97
[2018-10-27] MEDS: Polyethylene Glycol 3350 17 GM PACKET PO (06:34)
[2018-10-27 06:41] LABS: Bedside Glucose 124 mg/dL (70-110)
[2018-10-27] MEDS: Tamsulosin HCl 0.4 MG Capsule PO (06:42)
[2018-10-27] MEDS: AMOXICILLIN 500 MG CAPSULE PO ×3 (06:42→21:03)
[2018-10-27] MEDS: Pantoprazole Sodium 40 MG Tablet PO ×2 (06:42→17:22)
[2018-10-27] MEDS: Senna/Docusate Sodium 1 Tablet PO ×2 (06:42→17:22)
[2018-10-27] MEDS: Octreotide 0.1 MG/ML ML SC ×3 (06:42→21:08)
[2018-10-27] MEDS: Losartan Potassium 50 MG Tablet PO (06:42)
[2018-10-27 06:43] VITALS: BP 140/80; PULSE 78
[2018-10-27] MEDS: Metoprolol(XL)Succ 50 MG Tablet PO (06:43)
[2018-10-27] MEDS: Menthol/Lanolin/Calamine/Znox 113 GM Tube 1 APPLIC TOPICAL ×2 (06:49→17:25)
[2018-10-27 06:55] VITALS: PULSE 82; RESP 16; O2SAT 92
[2018-10-27] MEDS: Ipratropium/Albuterol Sulfate 3 ML AMPUL.NEB INHALATION ×3 (06:55→19:48)
[2018-10-27] MEDS: Iron Polysaccharide Complex 150 MG CAPSULE PO (09:12)
[2018-10-27] MEDS: Glucerna Shake 120 ML LIQUID PO ×3 (11:31→21:07)
[2018-10-27 11:56] LABS: Bedside Glucose 329 mg/dL (70-110)
[2018-10-27 12:55] VITALS: PULSE 76; RESP 16
[2018-10-27 13:35] VITALS: PULSE 91; RESP 16; O2SAT 96
[2018-10-27 15:38] VITALS: BP 124/75; PULSE 92; RESP 16; TEMP 36.3; O2SAT 95
[2018-10-27 17:06] LABS: Bedside Glucose 163 mg/dL (70-110)
--- NOTE | 2018-10-27 17:12 | CASEMGMT ---
Brief interview for mental status (BIMS) and resident mood interview (PHQ-9) completed on this day. BIMS score 15. PHQ-9 score 02/14
[2018-10-27 19:10] VITALS: PULSE 89; RESP 14
[2018-10-27 21:32] LABS: Bedside Glucose 143 mg/dL (70-110)
[2018-10-28] MEDS: Tamsulosin HCl 0.4 MG Capsule PO (05:49)
[2018-10-28] MEDS: Losartan Potassium 50 MG Tablet PO (05:49)
[2018-10-28] MEDS: Pantoprazole Sodium 40 MG Tablet PO (05:49)
[2018-10-28] MEDS: Menthol/Lanolin/Calamine/Znox 113 GM Tube 1 APPLIC TOPICAL (05:49)
[2018-10-28] MEDS: AMOXICILLIN 500 MG CAPSULE PO ×2 (05:49→13:10)
[2018-10-28] MEDS: Senna/Docusate Sodium 1 Tablet PO (05:49)
[2018-10-28] MEDS: Glucerna Shake 120 ML LIQUID PO (05:50)
[2018-10-28] MEDS: Polyethylene Glycol 3350 17 GM PACKET PO (05:50)
[2018-10-28] MEDS: Octreotide 0.1 MG/ML ML SC ×2 (05:57→13:11)
[2018-10-28 05:58] VITALS: BP 147/81; PULSE 83
[2018-10-28] MEDS: Metoprolol(XL)Succ 50 MG Tablet PO (05:58)
[2018-10-28 06:35] VITALS: PULSE 72; RESP 16; O2SAT 94
[2018-10-28] MEDS: Ipratropium/Albuterol Sulfate 3 ML AMPUL.NEB INHALATION ×2 (06:35→12:55)
[2018-10-28 06:57] LABS: Bedside Glucose 158 mg/dL (70-110)
[2018-10-28] MEDS: Iron Polysaccharide Complex 150 MG CAPSULE PO (07:41)
[2018-10-28 11:12] LABS: Bedside Glucose 206 mg/dL (70-110)
[2018-10-28 11:21] VITALS: PULSE 92; RESP 16; O2SAT 96
[2018-10-28 11:25] VITALS: BP 141/87; PULSE 90; RESP 16; TEMP 36.5; O2SAT 94
[2018-10-28 12:55] VITALS: PULSE 70; RESP 16
[2018-10-28 13:59] VITALS: BP 126/71; PULSE 89; RESP 16; TEMP 36.6; O2SAT 97
--- NOTE | 2018-11-01 14:36 | MDS.RN ---
Information for the mds was obtained from review of the clinical record, interview of resident, staff, and direct observation of resident's care.
--- NOTE | 2018-11-01 17:28 | PCM.PN.HH ---
Home Health Note - Plan Overview of reason of hospitalization: 78 year old male with below past medical history significant for gastric mass hospitalized for hypovolumic shock secondary to upper gastrointestinal bleed from duodenal ulcer, admitted to TCU with debility, here for rehabilitation, strengthening, prior to disposition determination. Discharge home with spouse, and Home Health Care. Problems: Complete List of Medical Problems Hypertensive urgency (Acute) Duodenal ulcer (Acute) Upper gastrointestinal bleed (Acute) Multiple falls (Chronic) Debility (Chronic) Healthcare-associated pneumonia (Chronic) Intra-abdominal lymphadenopathy (Chronic) Primary neuroendocrine carcinoma of stomach (Acute) Chronic obstructive pulmonary disease (Chronic) Bronchiectasis (Chronic) Gastric mass (Chronic) Diabetes mellitus (Chronic) Hypertension (Chronic) Hyperlipidemia (Chronic) GERD (gastroesophageal reflux disease) (Chronic) Acute blood loss anemia (Acute) GI bleed (Acute) NABEEL (acute kidney injury) (Acute) Lactic acidosis (Acute) Syncope (Acute) Hypovolemic shock (Acute) - Requirements and Reasons Disciplines Needed/Ordered: Physical Therapy Reason for Disciplines: Disease Specific Monitoring/education, Medication Management/Knowledge Deficit, Gait Training, Stair Training, Fall Prevention, Home Safety/Equipment Instruction, Balance and/or Posture Training, Transfer Training Related To: Change in Medical Treatment Plan, Shortness of Breath with Activity, Physical Impairments, Unsteady Gait/Balance, Fall Risk Patient is unable to leave the home: Without Aid of Supportive Devices (crutches, cane, wheelchair, walker), Without the assistance of another person - Additional Disciplines Additional Disciplines Needed/Ordered: Occupational Therapy, Home Health Aide
== END 2018-10-28 13:10 | disposition home or self-care (01) | DRG 948 ==
PROVIDERS: Internal Medicine Hematology & Oncology; Admitting Provider Family Medicine Geriatric Medicine; Referring Provider Family Medicine Geriatric Medicine; Visit Provider Family Medicine Geriatric Medicine
DX: R53.81 Other malaise (principal); C7A.8 Other malignant neuroendocrine tumors; E11.9 Type 2 diabetes mellitus without complications; N40.0 Benign prostatic hyperplasia without lower urinary tract symptoms; K26.9 Duodenal ulcer, unspecified as acute or chronic, without hemorrhage or perforation; J44.9 Chronic obstructive pulmonary disease, unspecified; I10 Essential (primary) hypertension; E78.5 Hyperlipidemia, unspecified; K21.9 Gastro-esophageal reflux disease without esophagitis; Z87.891 Personal history of nicotine dependence; F32.9 Major depressive disorder, single episode, unspecified
CPT/HCPCS: 36415; 71046; 80048; 81001; 82607; 82962; 83615; 85014; 85018; 85025; 87633; 94640; 94667; 94668; 97110; 97116; 97163; 97166; 97530; 97535; 97802; J7030; A4216; J2354

== ENCOUNTER → 2018-10-06 10:36 | Outpatient (CLI) | payer MEDICARE, OTHER, SELFPAY ==
[2018-10-04 16:24] VITALS: BMI 20.3
--- NOTE | 2018-10-06 13:15 | MRI_ITS ---
STUDY: MRI ABDOMEN WITH AND WITHOUT CONTRAST REASON FOR EXAM: Male, 78 years old. Gastric neuroendocrine tumor. Recent diagnosis of gastric mass. TECHNIQUE: Standardized fat and water weighted pulse sequences were obtained in all 3 orthogonal planes post contrast administration. 6 ml of Gadavist contrast material was administered intravenously for the contrast portion of the examination. COMPARISON: X-ray chest 10/06/2017, 09/30/2018, 09/22/2018. FINDINGS: Body wall soft tissues: No acute process. Osseous structures: Mild spondylosis. No acute process is visible. Inferior chest: Complex loculated left pleural effusion. Difficult to discern if there is a mass or dense consolidation at the left lower lobe, medial basilar favoring dense consolidation with some air bronchograms. Further characterization is necessary. Normal distal esophagus. Mild to moderate cardiomegaly without pericardial effusion. Hepatobiliary: Tiny left hepatic cyst measuring about 5 mm, too small for additional characterization. Otherwise normal liver parenchyma. No hepatomegaly. Nondilated intrahepatic biliary tree and common bile duct. A few tiny gallstones within noninflamed gallbladder. Pancreas: Trace ductal ectasia, mild to moderate atrophy, tiny cystic focus at the distal pancreatic tail measuring about 3 mm, too small for additional imaging characterization. Spleen: Normal. Adrenal glands: Normal. Urinary tract: There are several small grossly benign appearing renal cysts, the largest measuring approximately 9 mm, too small for definitive imaging characterization. There is no hydronephrosis. Vasculature: No acute process. Stomach: The gastric wall appears normal. Normal gastric lumen.. Lying medial to the lesser curvature of the gastric fundus, closely abutting the wall but with a preserved fat plane that does not appear to violate the serosa, there is a multi lobulated mass exhibiting low to intermediate signal on T1, intermediate signal on T2, bright signal on high B-value diffusion images consistent with diffusion restriction. Morphology of the lobulated mass favors multiple adjacent oval masses, quite likely a cluster of enlarged lymph nodes. The dominant oval mass superior-posterior measures approximately 2.8 x 2.0By 2.8 cm, circumscribed margins, oval shape. 3 additional immediately adjacent circumscribed oval masses masses measure 2.4 cm and 2.3 cm and 1.7 cm respectively. These exhibit a heterogeneous pattern of internal enhancement, and relatively bright rim enhancement. MRI/MRI Abd WITH and W/O Contrast IMPRESSION: 1. There are 4 closely adjacent sharply circumscribed oval enhancing masses which lie above the plane of the pancreas, just medial to the serosal margin of the lesser curvature of the gastric fundus. Intimately adjacent to the gastric artery, without apparent violation of the serosal margin of the stomach and therefore not suspected to represent extension of a gastric mass. Morphology and enhancement characteristics favor a cluster of enlarged lymph nodes. Quite suspicious for malignancy, favoring metastatic adenopathy. 2. There is no convincing evidence of gastric mass. 3. Consolidating features at the right lung base medially, with what appears to be a loculated complex pleural effusion at the left lung base. 4. Cardiomegaly. Electronically Signed: Kwadwo Newman MD at 14:18 EST Tel , Service support ,
--- OUTSIDE RECORDS SUMMARY | 2018-12-11 05:48 | XMS RPT_ITS ---
:1940 Author Organization [place] Support Name Relationship Address Phone LUCIA VERA Unavailable Unavailable + SHANNA VERA Unavailable Unavailable + LUCIA SULLIVAN Unavailable [address] + [place] [address] BENJI SHANNA Unavailable Unavailable + R Unavailable Unavailable Unavailable OMARLUCIA Unavailable [address] + [place] [address] SHANNA VERA Unavailable Unavailable + R Unavailable Unavailable Unavailable OMARLUCIA Unavailable [address] + [place] [address] SHANNA VERA Unavailable Unavailable + R Unavailable Unavailable Unavailable OMARLUCIA Unavailable [address] + [place] [address] BENJI SHANNA Unavailable Unavailable + R Unavailable Unavailable Unavailable OMARANUELEN Unavailable [address] + [place] [address] SHANNA VERA Unavailable Unavailable + R Unavailable Unavailable Unavailable OMARANUELEN Unavailable [address] + [place] [address] SHANNA VERA Unavailable Unavailable + R Unavailable Unavailable Unavailable OMARLUCIA Unavailable [address] + [place] [address] SHANNA VERA Unavailable Unavailable + R Unavailable Unavailable Unavailable OMAR LUCIA Unavailable [address] + [place] [address] BENJI SHANNA Unavailable Unavailable + R Unavailable Unavailable Unavailable DUCKANUELEN Unavailable [address] + [place] [address] BENJI SHANNA Unavailable Unavailable + R Unavailable Unavailable Unavailable DUCKANUELEN Unavailable [address] + [place] [address] BENJI SHANNA Unavailable Unavailable + R Unavailable Unavailable Unavailable DUCKANUELEN Unavailable [address] + [place] [address] BENJI SHANNA Unavailable Unavailable + R Unavailable Unavailable Unavailable DUCKANUELEN Unavailable [address] + [place] [address] BENJI SHANNA Unavailable Unavailable + R Unavailable Unavailable Unavailable DUCKANUELEN Unavailable [address] + [place] [address] BENJI SHANNA Unavailable Unavailable + R Unavailable Unavailable Unavailable ANUEL SULLIVANEN Unavailable [address] + [place] [address] BENJIALONDRASHANNA Unavailable Unavailable + R Unavailable Unavailable Unavailable LUCIA VERA Unavailable Unavailable + BENJI SHANNA Unavailable Unavailable + LUCIA VERA Unavailable [address] + [place] [address] ANUEL VERAEN Unavailable [address] + [place] [address] ANUEL VERAEN Unavailable [address] + [place] [address] ANUEL VERAEN Unavailable [address] + [place] [address] ANUEL VERAEN Unavailable [address] + [place] [address] ANUEL VERAEN Unavailable [address] + [place] [address] BENJI, LUCIA Unavailable [address] + [place] [address] BENJI, LUCIA Unavailable [address] + [place] [address] BENJI, LUCIA Unavailable [address] + [place] [address] BENJI, LUCIA Unavailable [address] + [place] [address] BENJI, LUCIA Unavailable [address] + [place] [address] BENJI, LUCIA Unavailable [address] + [place] [address] BENJI, LUCIA Unavailable [address] + [place] [address] BENJI, LUCIA Unavailable [address] + [place] [address] BENJI, LUCIA Unavailable [address] + [place] [address] BENJI, LUCIA Unavailable [address] + [place] [address] BENJI, LUCIA Unavailable [address] + [place] [address] BENJI, LUCIA Unavailable [address] + [place] [address] BENJI, LUCIA Unavailable [address] + [place] [address] Care Team Providers Name Role Phone Anthony, Dion Chi Admitting Unavailable Anthony, Dion Chi Attending Unavailable Anthony, Dion Chi Referring Unavailable Primay Care Physicia, No Primary Care Unavailable Rusty Vargas Consulting Unavailable Federico, Elvis Admitting Unavailable David Kim Attending Unavailable Jr Meredith Consulting Unavailable Federico, Elvis Admitting Unavailable Elvis Caballero Attending Unavailable Primay Care Physicia, No Primary Care Unavailable Rusty Vargas Consulting Unavailable Avinasheri, Elvis Consulting Unavailable Federico, Elvis Admitting Unavailable Rusty Vargas Attending Unavailable Primay Care Physicia, No Primary Care Unavailable Rusty Vargas Consulting Unavailable Jr Meredith Consulting Unavailable Avinasheri, Elvis Consulting Unavailable Jopperi, Elvis Admitting Unavailable Ashelfah, Ghasem Attending Unavailable Primay Care Physicia, No Primary Care Unavailable Alicia, Rusty Consulting Unavailable Masoud, Jr Consulting Unavailable Ashelfah, Ghasem Consulting Unavailable Jopperi, Elvis Admitting Unavailable Masoud, Jr Attending Unavailable Primay Care Physicia, No Primary Care Unavailable Ashland, Rusty Consulting Unavailable Masoud, Jr Consulting Unavailable Ashelfah, Ghasem Consulting Unavailable Jopperi, Elvis Admitting Unavailable Robotham, Griselda Attending Unavailable Primay Care Physicia, No Primary Care Unavailable Ashland, Rusty Consulting Unavailable Masoud, Jr Consulting Unavailable Ashelfah, Ghasem Consulting Unavailable Jopperi, Elvis Admitting Unavailable Ashelfah, Ghasem Attending Unavailable Primay Care Physicia, No Primary Care Unavailable Ashland, Rusty Consulting Unavailable Masoud, Jr Consulting Unavailable Ashelfah, Ghasem Consulting Unavailable Jopperi, Elvis Admitting Unavailable Masoud, Jr Attending Unavailable Primay Care Physicia, No Primary Care Unavailable Ashland, Rusty Consulting Unavailable Masoud, Jr Consulting Unavailable Ashelfah, Ghasem Consulting Unavailable Jopperi, Elivs Admitting Unavailable Robotham, Griselda Attending Unavailable Primay Care Physicia, No Primary Care Unavailable Ashland, Rusty Consulting Unavailable Masoud, Jr Consulting Unavailable Ashelfah, Ghasem Consulting Unavailable Jopperi, Elvis Admitting Unavailable Ashelfah, Ghasem Attending Unavailable Primay Care Physicia, No Primary Care Unavailable Alicia, Rusty Consulting Unavailable Masoud, Jr Consulting Unavailable Ashelfah, Ghasem Consulting Unavailable Margaritaky, David Attending Unavailable Jopperi, Elvis Admitting Unavailable Primay Care Physicia, No Primary Care Unavailable Alicia, Rusty Consulting Unavailable Masoud, Jr Consulting Unavailable Tereletsky, David Consulting Unavailable Anthony, Dion Chi Admitting Unavailable Anthony, Dion Chi Attending Unavailable Anthony, Dion Chi Referring Unavailable Primay Care Physicia, No Primary Care Unavailable Masci, Shai Consulting Unavailable Masci, Shai Attending Unavailable Masci, Shai Referring Unavailable Primay Care Physicia, No Primary Care Unavailable Dr. Sid Champion Attending Unavailable Dr. Karly Sepulveda Referring Unavailable UNKNOWN, PCP Primary Care Unavailable PROVIDER, UNKNOWN Admitting Unavailable PROVIDER, UNKNOWN Attending Unavailable NAIMA AKHTAR Primary Care Unavailable PROVIDER, UNKNOWN Admitting Unavailable PROVIDER, UNKNOWN Attending Unavailable AKHTAR, NAIMA Primary Care Unavailable PROVIDER, UNKNOWN Admitting Unavailable PROVIDER, UNKNOWN Attending Unavailable AKHTAR, NAIMA Primary Care Unavailable PROVIDER, UNKNOWN Admitting Unavailable PROVIDER, UNKNOWN Attending Unavailable AKHTAR, NAIMA Primary Care Unavailable AKHTAR, NAIMA Primary Care Unavailable DASARATHY, JAIVIDHYA Attending Unavailable DASARATHY, JAIVIDHYA Admitting Unavailable PROVIDER, UNKNOWN Admitting Unavailable PROVIDER, UNKNOWN Attending Unavailable AKHTAR, NAIMA Primary Care Unavailable PROVIDER, UNKNOWN Admitting Unavailable PROVIDER, UNKNOWN Attending Unavailable AKHTAR, NAIMA Primary Care Unavailable PROVIDER, UNKNOWN Admitting Unavailable PROVIDER, UNKNOWN Attending Unavailable AKHTAR, NAIMA Referring Unavailable AKHTAR, NAIMA Primary Care Unavailable PROVIDER, UNKNOWN Admitting Unavailable PROVIDER, UNKNOWN Attending Unavailable AKHTAR, NAIMA Primary Care Unavailable PROVIDER, UNKNOWN Admitting Unavailable PROVIDER, UNKNOWN Attending Unavailable AKHTAR, NAIMA Primary Care Unavailable PROVIDER, UNKNOWN Admitting Unavailable PROVIDER, UNKNOWN Attending Unavailable DASARATHY, JAIVIDHYA Referring Unavailable AKHTAR, NAIMA Primary Care Unavailable PROVIDER, UNKNOWN Admitting Unavailable PROVIDER, UNKNOWN Attending Unavailable DASARATHY, JAIVIDHYA Referring Unavailable AKHTAR, NAIMA Primary Care Unavailable PROVIDER, UNKNOWN Admitting Unavailable PROVIDER, UNKNOWN Attending Unavailable DASARATHY, JAIVIDHYA Referring Unavailable AKHTAR, NAIMA Primary Care Unavailable PROVIDER, UNKNOWN Admitting Unavailable PROVIDER, UNKNOWN Attending Unavailable DASARATHY, JAIVIDHYA Referring Unavailable AKHTAR, NAIMA Primary Care Unavailable PROVIDER, UNKNOWN Admitting Unavailable PROVIDER, UNKNOWN Attending Unavailable DASARATHY, JAIVIDHYA Referring Unavailable AKHTAR, NAIMA Primary Care Unavailable PROVIDER, UNKNOWN Admitting Unavailable PROVIDER, UNKNOWN Attending Unavailable DASARATHY, JAIVIDHYA Referring Unavailable AKHTAR, NAIMA Primary Care Unavailable PROVIDER, UNKNOWN Admitting Unavailable PROVIDER, UNKNOWN Attending Unavailable AKHTAR, NAIMA Primary Care Unavailable PROVIDER, UNKNOWN Admitting Unavailable PROVIDER, UNKNOWN Attending Unavailable AKHTAR, NAIMA Referring Unavailable AKHTAR, NAIMA Primary Care Unavailable PROVIDER, UNKNOWN Admitting Unavailable PROVIDER, UNKNOWN Attending Unavailable DASARATHY, JAIVIDHYA Referring Unavailable AKHTAR, NAIMA Primary Care Unavailable Ej Upton Attending Unavailable UNKNOWN, PCP Primary Care Unavailable Ej Upton Admitting Unavailable Ej Upton Referring Unavailable PROBLEMS PROBLEMS DATE TYPE CONDITION / CODE ATTENDING STATUS SOURCE 10/12/2018 Unknown R53.81 - Other Anthony, Dion Chi Active [facility] R53.81(ICD-10) Hospital Repository 09/20/2018 Admitting Sepsis, unspecified Ej Upton Active [facility] Medical diagnosis organism / Center A41.9(ICD-10) Repository 09/20/2018 Final diagnosis Sepsis, unspecified [facility] (discharge) organism / Center A41.9(ICD-10) Repository 09/20/2018 Final diagnosis Pneumonia, [facility], [facility] (discharge) unspecified Center organism / Repository J18.9(ICD-10) 09/20/2018 Final diagnosis Acute respiratory [facility], [facility] (discharge) failure with Center hypoxia / Repository J96.01(ICD-10) 09/20/2018 Final diagnosis Urinary tract [facility], [facility] (discharge) infection, site not Center specified / Repository N39.0(ICD-10) 09/20/2018 Final diagnosis Acute kidney [facility], [facility] (discharge) failure, Center unspecified / Repository N17.9(ICD-10) 09/20/2018 Final diagnosis 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[facility], [facility]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 Center / C16.2(ICD-10) Repository 09/20/2018 Final diagnosis 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[facility], [facility]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 Repository / C77.2(ICD-10) 09/20/2018 Final diagnosis Pleural effusion in [facility], [facility] (discharge) other conditions Center classified Repository elsewhere / J91.8(ICD-10) 09/20/2018 Final diagnosis Bronchiectasis with [facility], [facility] (discharge) acute lower Center respiratory Repository infection / J47.0(ICD-10) 09/20/2018 Final diagnosis Alkalosis / [facility], [facility] (discharge) E87.3(ICD-10) Center Repository 09/20/2018 Final diagnosis Severe sepsis [facility], [facility] (discharge) without septic Center shock / Repository R65.20(ICD-10) 09/20/2018 Final diagnosis Emphysema, [facility], [facility] (discharge) unspecified / Center J43.9(ICD-10) Repository 09/20/2018 Final diagnosis Type 2 diabetes [facility], [facility] (discharge) mellitus with Center hyperglycemia / Repository E11.65(ICD-10) 09/20/2018 Final diagnosis Pulmonary fibrosis, [facility], [facility] (discharge) unspecified / Center J84.10(ICD-10) Repository 09/20/2018 Final diagnosis Essential (primary) [facility], Ej [facility] (discharge) hypertension / Center I10(ICD-10) Repository 09/20/2018 Final diagnosis Ataxia, unspecified [facility], Ej Active [facility] (discharge) / R27.0(ICD-10) Center Repository 09/20/2018 Final diagnosis Repeated falls / [facility], Ej Active [facility] (discharge) R29.6(ICD-10) Center Repository 09/20/2018 Final diagnosis Unspecified fall, [facility], [facility]j [facility] (discharge) initial encounter / Center W19.XXXA(ICD-10) Repository 09/20/2018 Final diagnosis Pleurodynia / [facility], Ej Active [facility] (discharge) R07.81(ICD-10) Center Repository 09/20/2018 Final diagnosis Oth bacterial [facility], [facility] (discharge) agents as the cause Center of diseases classd Repository elswhr / B96.89(ICD-10) 09/20/2018 Final diagnosis Do not resuscitate [facility], [facility] (discharge) / Z66(ICD-10) Center Repository 09/20/2018 Final diagnosis Nosocomial [facility], [facility]j [facility] (discharge) condition / Center Y95(ICD-10) Repository 09/20/2018 Final diagnosis Weakness / [facility], Ej [facility] (discharge) R53.1(ICD-10) Center Repository 09/20/2018 Final diagnosis Prsnl hx of TIA [facility], [facility]j [facility] (discharge) (TIA), and cereb Center infrc w/o resid Repository deficits / Z86.73(ICD-10) 09/20/2018 Final diagnosis Personal history of [facility], Ej [facility] (discharge) nicotine dependence Center / Z87.891(ICD-10) Repository 09/20/2018 Final diagnosis Unspecified hearing [facility], Ej Active [facility] (discharge) loss, unspecified Center ear / Repository H91.90(ICD-10) 07/22/2018 Active Encounter for other Unknown Active [facility] / Z51.89(ICD-10) Repository PROCEDURES PROCEDURES DATE CODE DESCRIPTION STATUS SOURCE 08/19/2018 08486(C4) THERAPEUTIC EXERCISE Completed [facility] Repository 08/19/2018 60495(C4) NEUROMUSCULAR Completed [facility] REEDUCATION System Repository 08/19/2018 G8980(C4) MOBILITY D/C STATUS Completed [facility] Repository 08/16/2018 42628(C4) XR CHEST PA+LAT Completed [facility] Repository 07/27/2018 95834(C4) NEUROMUSCULAR Completed [facility] REEDUCATION [facility] Repository 07/27/2018 70156(C4) NEUROMUSCULAR Completed [facility] Repository 07/27/2018 52669(C4) NEUROMUSCULAR Completed [facility] Repository 07/27/2018 57511(C4) THERAPEUTIC ACTIVITY EA Completed [facility] 15MIN System Repository 07/20/2018 12949(C4) THERAPEUTIC EXERCISE Completed [facility] Repository 07/20/2018 34089(C4) NEUROMUSCULAR Completed [facility] REEDUCATION [facility] Repository 07/20/2018 92650(C4) NEUROMUSCULAR Completed [facility] Repository 07/20/2018 90919(C4) NEUROMUSCULAR Completed [facility] Repository 07/08/2018 04175(C4) THERAPEUTIC EXERCISE Completed [facility] Repository 07/08/2018 29882(C4) NEUROMUSCULAR Completed [facility] Repository 07/08/2018 72164(C4) NEUROMUSCULAR Completed [facility] Repository 07/06/2018 08617(C4) THERAPEUTIC EXERCISE Completed [facility] Repository 07/06/2018 57900(C4) NEUROMUSCULAR Completed [facility] Repository 07/06/2018 56692(C4) NEUROMUSCULAR Completed [facility] Repository 07/06/2018 25119(C4) NEUROMUSCULAR Completed [facility] Repository 06/24/2018 42126(C4) THERAPEUTIC EXERCISE Completed [facility] Repository 06/24/2018 23217(C4) GAIT TRAINING THERAPY Completed [facility] Repository 06/24/2018 80875(C4) NEUROMUSCULAR Completed [facility] Repository 06/24/2018 51915(C4) NEUROMUSCULAR Completed [facility] Repository 06/24/2018 E0100(C4) CANE, ALL TYPES Completed [facility] Repository 06/11/2018 50457(C4) XR CHEST PA+LAT Completed [facility] Repository 06/02/2018 OT105(C4) RECERT PT/OT/SPEECH [facility] 06/02/2018 46043(C4) PT EVAL HIGH COMPLEX 45 [facility] 06/02/2018 G8978(C4) MOBILITY CURRENT STATUS [facility] 06/02/2018 G8979(C4) MOBILITY GOAL STATUS Completed [facility] Repository 05/29/2018 IQM244(C4) FALL PRECAUTIONS Completed [facility] Repository 05/29/2018 30655(C4) COMPLETE BLOOD COUNT [facility] W/DIFF System Repository 05/29/2018 75858(C4) BASIC METABOLIC PANEL [facility] 05/29/2018 56342(C4) MAGNESIUM Completed [facility] Repository 05/29/2018 86277(C4) XR CHEST PA+LAT [facility] Rep[facility] 05/29/2018 93883(C4) URINALYSIS [facility] 05/29/2018 11008(C4) URINALYSIS,AUTO-IN Completed [facility] Repository 05/29/2018 44537(C4) CT HEAD W/O CONTRAST [facility] 05/29/2018 WS4026(C4) BED REQUEST FOR THE Com[facility] F[facility]OR [facility] Repository 05/29/2018 [id number](C4) ADMIT TO FLOOR [facility] 05/29/2018 [id number](C4) UPDATE TREATMENT TEAM Com[facility] RESIDENT [facility] Repository 05/29/2018 [id number](C4) UPDATE ATTENDING [facility] Rep[facility] 05/29/2018 [id number](C4) MEASURE WEIGHT [facility] 05/29/2018 [id number](C4) RECORD HEIGHT [facility] 05/29/2018 [id number](C4) MEASURE VITAL SIGNS Completed [facility] WITH PULSE OXIMETRY System Repository 05/29/2018 [id number](C4) NOTIFY MD [facility] 05/29/2018 [id number](C4) INSERT PERIPHERAL IV Com[facility] ACCESS [facility] Repository 05/29/2018 [id number](C4) IP RESPIRATORY THERAPY Completed [facility] SERVICE REQUEST System Repository 05/29/2018 CODE1(C4) FULL CODE Completed [facility] Repository 05/29/2018 UKD122(C4) FALL PRECAUTIONS Completed [facility] Repository 05/29/2018 [id number](C4) [id number] Completed [facility] Repository 05/29/2018 [id number](C4) UP WITH ASSISTANCE Completed [facility] Repository 05/29/2018 [id number](C4) BRONCHO-PULMONARY Completed [facility] HYGIENE-ASSESS FOR System Repository BRONCHPULMONARY HYGIENE 05/29/2018 [id number](C4) IP NURSING POCT GLUCOSE Completed [facility] Repository 05/29/2018 [id number](C4) IP NURSING POCT GLUCOSE Completed [facility] Repository 05/29/2018 [id number](C4) IP NURSING POCT GLUCOSE Completed [facility] Repository 05/29/2018 [id number](C4) IP NURSING POCT GLUCOSE Completed [facility] Repository 05/29/2018 [id number](C4) IP NURSING POCT GLUCOSE Completed [facility] Repository 05/29/2018 [id number](C4) IP NURSING POCT GLUCOSE Completed [facility] Repository 05/29/2018 [id number](C4) IP NURSING POCT GLUCOSE Completed [facility] Repository 05/29/2018 [id number](C4) IP NURSING POCT GLUCOSE Completed [facility] Repository 05/29/2018 [id number](C4) MEASURE INTAKE AND Completed [facility] OUTPUT System Repository 05/29/2018 [id number](C4) IP RESPIRATORY THERAPY Completed [facility] SERVICE REQUEST System Repository 05/29/2018 [id number](C4) IP PHYSICAL THERAPY Completed [facility] SERVICE REQUEST System Repository 05/29/2018 [id number](C4) IP OCCUPATIONAL THERAPY Completed [facility] SERVICE REQUEST System Repository 05/29/2018 87941(C4) GLUCOSE, FINGERSTICK-IN Completed [facility] OFFICE System Repository 05/29/2018 39835(C4) GLUCOSE, FINGERSTICK-IN Completed [facility] OFFICE System Repository 05/29/2018 40268(C4) GLUCOSE, FINGERSTICK-IN Completed [facility] OFFICE System Repository 05/29/2018 [id number](C4) INITIATE INCENTIVE Completed [facility] SPIROMETRY System Repository 05/29/2018 36268(C4) EKG 12 LEAD - PERFORM Completed [facility] Repository 05/29/2018 [id number](C4) IP NURSING POCT GLUCOSE Completed [facility] Repository 05/29/2018 [id number](C4) IP NURSING POCT GLUCOSE Completed [facility] Repository 05/29/2018 [id number](C4) IP NURSING POCT GLUCOSE Completed [facility] Repository 05/29/2018 [id number](C4) IP NURSING POCT GLUCOSE Completed [facility] Repository 05/29/2018 20666(C4) COMPLETE BLOOD COUNT Completed [facility] W/DIFF System Repository 05/29/2018 44195(C4) BASIC METABOLIC PANEL Completed [facility] Repository 05/29/2018 14462(C4) GLUCOSE, FINGERSTICK-IN Completed [facility] OFFICE System Repository 05/29/2018 30595(C4) GLUCOSE, FINGERSTICK-IN Completed [facility] OFFICE [facility] Repository 05/29/2018 41183(C4) GLUCOSE, FINGERSTICK-IN Completed [facility] OFFICE System Repository 05/29/2018 10135(C4) GLUCOSE, FINGERSTICK-IN Completed [facility] OFFICE [facility] Repository 05/29/2018 [id number](C4) IP NURSING POCT GLUCOSE Completed [facility] Repository 05/29/2018 [id number](C4) IP NURSING POCT GLUCOSE Completed [facility] Repository 05/29/2018 [id number](C4) IP NURSING POCT GLUCOSE Completed [facility] Repository 05/29/2018 [id number](C4) IP NURSING POCT GLUCOSE Completed [facility] Repository 05/29/2018 42402(C4) BASIC METABOLIC PANEL Completed [facility] Repository 05/29/2018 67072(C4) COMPLETE BLOOD COUNT Completed [facility] Repository 05/29/2018 40816(C4) GLUCOSE, FINGERSTICK-IN Completed [facility] OFFICE System Repository 05/29/2018 [id number](C4) OUT OF BED TO CHAIR FOR Completed [facility] MEALS System Repository 05/29/2018 [id number](C4) OUT OF BED TO CHAIR Completed [facility] Repository 05/29/2018 41813(C4) GLUCOSE, FINGERSTICK-IN Completed [facility] OFFICE System Repository 05/29/2018 [id number](C4) DISCHARGE PATIENT Completed [facility] Repository 05/29/2018 [id number](C4) HOME CARE SERVICE [facility] Repository 05/29/2018 E0143(C4) FOLDING WALKER, Completed [facility] SEAT System Repository 05/29/2018 PT115(C4) PHYSICAL THERAPY [facility] Repository REQUEST 05/29/2018 OT101(C4) OCCUP Com[facility] [id number] System Repository 05/29/2018 07291(C4) GLUCOSE, FINGERSTICK-IN [facility] 05/12/2018 PT101(C4) PHYS THERAPY ADULT Com[facility]TREAT [facility] RQST System Repository 05/12/2018 62441(C4) HEMOGLOBIN A1C Completed [facility] Repository 01/22/2018 66185(C4) GLUCOSE, FINGERSTICK-IN Completed [facility] [employer] [facility] OFFICE System Repository 01/22/2018 59497(C4) FULL LIPID PROFILE [facility] 01/22/2018 60582(C4) BASIC METABOLIC PANEL Completed [facility] Repository 01/22/2018 28344(C4) COMPLETE BLOOD COUNT Completed [facility] Repository 01/22/2018 03469(C4) HEPATIC FUNCTION PANEL Completed [facility] Repository 01/22/2018 07965(C4) TSH, HIGH SENSITIVITY Completed [facility] Repository 12/04/2017 52227(C4) GLUCOSE, FINGERSTICK-IN Completed [facility] Repository 12/04/2017 99950(C4) HEMOGLOBIN A1C Completed [facility] Repository RESULTS RESULTS BEDSIDE GLUCOSE Collected: 10/16/2018 Status: F Source: MANDEEP 9:14 PM [facility] REPOSITORY TYPE CODE TESTS RESULT OUT OF REFERENCE UNITS RANGE LAB L501.080 70-110 mg/dL High BEDSIDE GLU 192 Result Comment: MANAGEMENT OF PATIENT CARE PER NURSING PROTOCOL Performed By: #### L501.080 #### [facility] [place] [address] BEDSIDE GLUCOSE Collected: 10/16/2018 Status: F Source: MANDEEP 4:41 PM [facility] REPOSITORY TYPE CODE TESTS RESULT OUT OF REFERENCE UNITS RANGE LAB L501.080 70-110 mg/dL High BEDSIDE GLU 302 Result Comment: MANAGEMENT OF PATIENT CARE PER NURSING PROTOCOL Performed By: #### L501.080 #### [facility] Point of Care [address] [place] [address] BEDSIDE GLUCOSE Collected: 10/16/2018 Status: F Source: MANDEEP 11:38 AM [facility] REPOSITORY TYPE CODE TESTS RESULT OUT OF REFERENCE UNITS RANGE LAB L501.080 70-110 mg/dL High BEDSIDE GLU 295 Result Comment: MANAGEMENT OF PATIENT CARE PER NURSING PROTOCOL Performed By: #### L501.080 #### [facility] Point of Care [address] [place] [address] BEDSIDE GLUCOSE Collected: 10/16/2018 Status: F Source: MANDEEP 6:46 AM [facility] REPOSITORY TYPE CODE TESTS RESULT OUT OF REFERENCE UNITS RANGE LAB L501.080 70-110 mg/dL High BEDSIDE GLU 145 Result Comment: MANAGEMENT OF PATIENT CARE PER NURSING PROTOCOL Performed By: #### L501.080 #### [facility] Point of Care [address] [place] [address] BEDSIDE GLUCOSE Collected: 10/15/2018 Status: F Source: MANDEEP 8:41 PM [facility] REPOSITORY TYPE CODE TESTS RESULT OUT OF REFERENCE UNITS RANGE LAB L501.080 70-110 mg/dL High BEDSIDE GLU 162 Result Comment: MANAGEMENT OF PATIENT CARE PER NURSING PROTOCOL Performed By: #### L501.080 #### [facility] Point of Care [address] [place] [address] BEDSIDE GLUCOSE Collected: 10/15/2018 Status: F Source: MANDEEP 11:38 AM [facility] REPOSITORY TYPE CODE TESTS RESULT OUT OF REFERENCE UNITS RANGE LAB L501.080 70-110 mg/dL High BEDSIDE GLU 194 Result Comment: MANAGEMENT OF PATIENT CARE PER NURSING PROTOCOL Performed By: #### L501.080 #### [facility] Point of Care [address] [place] [address] BEDSIDE GLUCOSE Collected: 10/15/2018 Status: F Source: MANDEEP 6:28 AM [facility] REPOSITORY TYPE CODE TESTS RESULT OUT OF REFERENCE UNITS RANGE LAB L501.080 70-110 mg/dL High BEDSIDE GLU 142 Result Comment: MANAGEMENT OF PATIENT CARE PER NURSING PROTOCOL Performed By: #### L501.080 #### [facility] Point of Care [address] [place] [address] BEDSIDE GLUCOSE Collected: 10/14/2018 Status: F Source: MANDEEP 8:53 PM [facility] REPOSITORY TYPE CODE TESTS RESULT OUT OF REFERENCE UNITS RANGE LAB L501.080 70-110 mg/dL High BEDSIDE GLU 137 Result Comment: MANAGEMENT OF PATIENT CARE PER NURSING PROTOCOL Performed By: #### L501.080 #### [facility] Point of Care [address] [place] [address] BEDSIDE GLUCOSE Collected: 10/14/2018 Status: F Source: MANDEEP 5:17 PM [facility] REPOSITORY TYPE CODE TESTS RESULT OUT OF REFERENCE UNITS RANGE LAB L501.080 70-110 mg/dL High BEDSIDE GLU 235 Result Comment: MANAGEMENT OF PATIENT CARE PER NURSING PROTOCOL Performed By: #### L501.080 #### [facility] Point of Care [address] [place] [address] BEDSIDE GLUCOSE Collected: 10/14/2018 Status: F Source: MANDEEP 10:40 AM [facility] REPOSITORY TYPE CODE TESTS RESULT OUT OF REFERENCE UNITS RANGE LAB L501.080 70-110 mg/dL High BEDSIDE GLU 332 Result Comment: MANAGEMENT OF PATIENT CARE PER NURSING PROTOCOL Performed By: #### L501.080 #### [facility] Point of Care [address] [place] [address] BEDSIDE GLUCOSE Collected: 10/14/2018 Status: F Source: MANDEEP 6:22 AM [facility] REPOSITORY TYPE CODE TESTS RESULT OUT OF REFERENCE UNITS RANGE LAB L501.080 70-110 mg/dL High BEDSIDE GLU 135 Result Comment: MANAGEMENT OF PATIENT CARE PER NURSING PROTOCOL Performed By: #### L501.080 #### [facility] Point of Care [address] [place] [address] BEDSIDE GLUCOSE Collected: 10/13/2018 Status: F Source: MANDEEP 9:14 PM [facility] REPOSITORY TYPE CODE TESTS RESULT OUT OF RANGE REFERENCE UNITS LAB L501.080 70-110 mg/dL Normal BEDSIDE GLU 98 Result Comment: MANAGEMENT OF PATIENT CARE PER NURSING PROTOCOL Performed By: #### L501.080 #### [facility] Point of Care [address] [place] [address] BEDSIDE GLUCOSE Collected: 10/13/2018 Status: F Source: MNADEEP 8:51 PM [facility] REPOSITORY TYPE CODE TESTS RESULT OUT OF REFERENCE UNITS RANGE LAB L501.080 70-110 mg/dL Low BEDSIDE GLU 63 Result Comment: MANAGEMENT OF PATIENT CARE PER NURSING PROTOCOL Performed By: #### L501.080 #### [facility] Point of Care [address] [place] [address] BEDSIDE GLUCOSE Collected: 10/13/2018 Status: F Source: MANDEEP 4:50 PM [facility] REPOSITORY TYPE CODE TESTS RESULT OUT OF REFERENCE UNITS RANGE LAB L501.080 70-110 mg/dL High BEDSIDE GLU 400 Result Comment: MANAGEMENT OF PATIENT CARE PER NURSING PROTOCOL Performed By: #### L501.080 #### [facility] Point of Care [address] [place] [address] BEDSIDE GLUCOSE Collected: 10/13/2018 Status: F Source: MANDEEP 11:18 AM [facility] REPOSITORY TYPE CODE TESTS RESULT OUT OF REFERENCE UNITS RANGE LAB L501.080 70-110 mg/dL High BEDSIDE GLU 222 Result Comment: MANAGEMENT OF PATIENT CARE PER NURSING PROTOCOL Performed By: #### L501.080 #### [facility] Point of Care [address] [place] [address] BEDSIDE GLUCOSE Collected: 10/13/2018 Status: F Source: MANDEEP 6:29 AM [facility] REPOSITORY TYPE CODE TESTS RESULT OUT OF REFERENCE UNITS RANGE LAB L501.080 70-110 mg/dL High BEDSIDE GLU 149 Result Comment: MANAGEMENT OF PATIENT CARE PER NURSING PROTOCOL Performed By: #### L501.080 #### [facility] Point of Care [address] [place] [address] BASIC METABOLIC Collected: 10/13/2018 Status: F Source: MANDEEP PROFILE (BMP) 5:05 AM [facility] REPOSITORY TYPE CODE TESTS RESULT OUT OF RANGE REFERENCE UNITS LAB L501.0100 74-106 mg/dL High GLU 158 Result Comment: Fasting Glucose result greater than or equal to 126 mg/dL suggests DIABETES MELLITUS per A.D.A. criteria. Please note revised GLUCOSE reference range effective 2017. LAB L501.1000 7-18 mg/dL Normal BUN 15 LAB L501.1100 0.70-1.30 mg/dL Normal CREAT,SERUM 1.17 Result Comment: The validity of the calculated GFR AND GFRAA in patients over 70 years has not been determined. Clinical correlation is essential. LAB L501.1110 >60 mL/min Normal EST GFR 64 Result Comment: Non- GFR Calc LAB L501.1115 >60 mL/min Normal EST GFR - AA 77 Result Comment: GFR Calc LAB L501.1255 ml/min Normal Estimated CRCL 42.43 LAB L501.1300 10-20 RATIO Normal BUN/CRE 12.8 LAB L501.2200 8.5-10 mg/dL Low .1 CA 8.1 LAB L501.5300 136-14 mmol/L High 5 NA 146 LAB L501.5600 3.5-5. mmol/L Normal 1 K 3.6 LAB L501.5900 98-107 mmol/L High CL 111 LAB L501.6100 21.0-3 mmol/L Normal 2.0 CO2 26.0 LAB L501.6200 5-15 Normal GAP 9 Performed By: #### L500.2500 #### [facility] [address] [place], [place], [address] BEDSIDE GLUCOSE Collected: 10/12/2018 Status: F Source: MANDEEP 9:17 PM [facility] REPOSITORY TYPE CODE TESTS RESULT OUT OF REFERENCE UNITS RANGE LAB L501.080 70-110 mg/dL High BEDSIDE GLU 242 Result Comment: MANAGEMENT OF PATIENT CARE PER NURSING PROTOCOL Performed By: #### L501.080 #### [facility] Point of Care [address] [place], [place] [address] HISTORY AND PHYSICAL Observed: 10/12/2018 Status: F Source: MANDEEP EXAM 5:42 PM [facility] REPOSITORY [facility] Medical Records Department [address] [place] [address] History and Physical 10/04/182022 MR#: [id number] Acct: [id number] Name: OMAR VERA Rep #: [id number] : 1940 78 From: Dion Cruz MD PCP: Care Physician, No Primary Status: ADM IN Y Location: [place] [id number] ADDENDUM by Dion Cruz MD on 10/12/18 at 1741 Code Visit Appetite decrease/depression/insomnia - Mirtazapine 7.5MG QHS. 10/12/18 1742 <Electronically signed by Dion Cruz MD> Date Dion Cruz MD cc: No Primary Care Physician; Dion Cruz MD * Signed Problem List (1) Upper gastrointestinal bleed Status: Acute (2) Multiple falls Status: Chronic (3) Debility Status: Chronic (4) Healthcare-associated pneumonia Status: Chronic (5) Intra-abdominal lymphadenopathy Status: Chronic (6) Duodenal ulcer Status: Acute (7) Chronic obstructive pulmonary disease Status: Chronic (8) Bronchiectasis Status: Chronic (9) Gastric mass Status: Chronic (10) Diabetes mellitus Status: Chronic (11) Hypertension Status: Chronic (12) Hyperlipidemia Status: Chronic (13) GERD (gastroesophageal reflux disease) Status: Chronic (14) Syncope Status: Acute History of Present Illness Date of Admission: 10/04/18 Chief Complaint: Here for rehabilitation, strengthening, prior to discharge home with spouse. The patient is a 78 year old Male with below past medical history TCU resident after hospitalization at [facility] for healthcare associated pneumonia, urinary tract infection, debility. 09/30/2018 resident unresponsive, hypotensive, large bowel movement of melanotic stool, Rapid Response Team called. Resident transferred to [facility] Emergency Department for evaluation and admission to hospital. Patient found to have hypotensive shock due to acute anemia from upper gastrointestinal bleeding. 09/30/2018 Admit to ICU Patient was transfused 4 units Packed Red Blood Cells, 2 units Fresh Frozen Plasma, [address] Vargas consulted and performed EGD with biopsy of gastric mass, injected duodenal ulcer with vein with epinephrine. Patient treated with IV Protonix twice daily, then transitioned to PO Protonix twice daily. Hemoglobin stable, diet advanced. Hypertensive urgency controlled with as needed doses of Labetalol, Hydralazine, both of which have been discontinued. Gastric mass biopsy results pending. 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 10/04/2018 Admit to TCU with debility, here for rehabilitation, strengthening, prior to disposition determination. Resident would prefer to go home afterwards, but his spouse states she is unable to care for him at home. He maybe able to go home with 24 hour private duty aides. 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 If biopsy confirmed will discuss with resident whether he would like to pursue treatment, consult [facility] oncology at that time. Past Medical History Past Medical History (Chronic Problems): Chronic Problems Multiple falls (Chronic) Debility (Chronic) Healthcare-associated pneumonia (Chronic) Intra-abdominal lymphadenopathy (Chronic) Chronic obstructive pulmonary disease (Chronic) Bronchiectasis (Chronic) Gastric mass (Chronic) Diabetes mellitus (Chronic) Hypertension (Chronic) Hyperlipidemia (Chronic) GERD (gastroesophageal reflux disease) (Chronic) Allergies Iodinated Contrast- Oral and IV Dye [CONTRASTS] Adverse Reaction (Verified 09/30/18 16:13) Unknown NSAIDS (Non-Steroidal Anti-Inflamma Adverse Reaction (Verified 09/30/18 16:13) GI bleed Home Medications: Ambulatory Orders Medication Instructions Recorded Ipratropium/Albuterol Sulfate 3 ml INHALATION Q2H PRN PRN 09/20/18 Surgical History: - - Left heart cath, EGD with cauterization gastric ulcer, EGD with gastric biopsy, epinephrine injection duodenal ulcer. Psychiatric History: No pertinent psych hx Lives: Spouse/ Significant Other Smoking Status: Former smoker - 30 pack year smoking history. Tobacco Use: Non-smoker Alcohol: None Drugs: None - *Family History Maternal History Items: No pertinent history Paternal History Items: No pertinent history Review of Systems Constitutional: Denies: Chills, Fever, Weight Change HEENT: Denies: Head Aches, Sinus Congestion, Sinus Drainage Cardiovascular: Denies: Chest Pain, Palpitations Respiratory: Denies: Cough, Shortness of breath at rest, Sputum production Gastrointestinal: Denies: Abdominal Pain, Nausea, Vomiting Genitourinary: Denies: Dysuria Musculoskeletal: Denies: Joint Pain, Joint Tenderness Skin: Denies: Rash, Wounds Neurological: Denies: Numbness, Tingling, Focal weakness Psychiatric: Denies: Anxiety, Depression, Homicidal Ideations, Suicidal Ideations Hematologic/ Lymphatic: Denies: Easy Bruising, Easy Bleeding VTE Information - Inpt Only VTE Present on Admission: No VTE Mechan Device Prophylaxis: Knee High LAUREL Hose VTE Pharm Prophylaxis ordered?: No Reason prophylaxis not ordered:: Medical Contraindication Patient Problems: Active and Suspected Problems Upper gastrointestinal bleed (Acute) - Physical Exam General: Alert, Oriented x3, Cooperative HEENT: Atraumatic, PERRLA, EOMI, Normocephalic Neck: Supple, No JVD, Negative Carotid Bruits Lungs: Clear to auscultation, Normal air movement Cardiovascular: Regular rate, No murmurs Abdomen: Bowel Sounds Present, Soft, Non Tender Extremities: No edema, Capillary Refill Less than 3 Seconds Skin: No rashes, No breakdown Musculoskeletal: No Tenderness to Palpation of Joints or Extremities Neurological: Cranial nerves II-XII grossly intact Psych/Mental Status: Normal Affect, Appropriate Vital Signs Temp Pulse Resp BP Pulse Ox 98.9 F 104 H 18 133/46 H 96 10/04/18 16:24 10/04/18 16:24 10/04/18 16:24 10/04/18 16:24 10/04/18 16:24 Oxygen Delivery Method Room Air Weight: 58.876 kg Body Mass Index (BMI) 20.3 Intake and Output for Last 24 Hours Intake Total 330 / 330 Balance 330 / 330 Assessment/Plan All Active Problems Hypertensive urgency (Acute) Duodenal ulcer (Acute) Upper gastrointestinal bleed (Acute) Acute blood loss anemia (Acute) GI bleed (Acute) SPIKE (acute kidney injury) (Acute) Lactic acidosis (Acute) Syncope (Acute) Hypovolemic shock (Acute) 78 year old male with below past medical history significant for gastric mass hospitalized for hypovolumic shock secondary to upper gastrointestinal bleed from duodenal ulcer, admitted to TCU with debility, here for rehabilitation, strengthening, prior to disposition determination. * Debility - PT/OT. * Pain - Tylenol 1000MG Q6H PRN mild pain. * Bowel - Miralax 17GM daily, Senna/colace 1 tablet BID, Dulcolax 10MG PO daily PRN. * Pneumonia vaccination - Administer Prevnar 13 and/or Pneumovax 23 as necessary. * DVT prophylaxis - contraindicated due to UGIB. * COPD - Duoneb 3ML Q2H PRN. Albuterol 2.5MG Q2H PRN. * Hypertension - Metoprolol succinate 50MG daily, Losartan 50MG daily. * Skin irritation - Calmoseptine BID buttocks, Eucerin daily PRN dry skin. * Diabetes Mellitus II - Metformin 500MG daily. * Duodenal ulcer - Pantoprazole 40MG BID. * BPH - Tamsulosin 0.4MG daily. 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 10/04/182043 <Electronically signed by Dion Cruz MD> Date Dion Cruz MD Cosigner Signature: Date (if applicable) CC: No Primary Care Physician; Dion Cruz MD Signed BEDSIDE GLUCOSE Collected: 10/12/2018 Status: F Source: MANDEEP 4:44 PM [facility] REPOSITORY TYPE CODE TESTS RESULT OUT OF REFERENCE UNITS RANGE LAB L501.080 70-110 mg/dL High BEDSIDE GLU 133 Result Comment: MANAGEMENT OF PATIENT CARE PER NURSING PROTOCOL Performed By: #### L501.080 #### [facility] Point of Care [address] [place], [place] [address] BEDSIDE GLUCOSE Collected: 10/12/2018 Status: F Source: MANDEEP 11:19 AM [facility] REPOSITORY TYPE CODE TESTS RESULT OUT OF REFERENCE UNITS RANGE LAB L501.080 70-110 mg/dL High BEDSIDE GLU 182 Result Comment: MANAGEMENT OF PATIENT CARE PER NURSING PROTOCOL Performed By: #### L501.080 #### [facility] Point of Care [address] [place] [address] BEDSIDE GLUCOSE Collected: 10/12/2018 Status: F Source: MANDEEP 6:32 AM [facility] REPOSITORY TYPE CODE TESTS RESULT OUT OF REFERENCE UNITS RANGE LAB L501.080 70-110 mg/dL High BEDSIDE GLU 121 Result Comment: MANAGEMENT OF PATIENT CARE PER NURSING PROTOCOL Performed By: #### L501.080 #### [facility] Point of Care [address] [place], [place] [address] CBC W/DIFF, AUTOMATED Collected: 10/12/2018 Status: F Source: MANDEEP 5:05 AM [facility] REPOSITORY TYPE CODE TESTS RESULT OUT OF RANGE REFERENCE UNITS LAB L100.1000 4.4-11.0 K/mm3 Normal WBC 4.8 LAB L100.1200 4.6-6.2 M/mm3 Low RBC 3.37 LAB L100.1300 13.0-16.5 g/dl Low HGB 9.8 LAB L100.1400 40-54 % Low HCT 31.6 LAB L100.1500 80-94 fL Normal MCV 93.8 LAB L100.1600 27.0-32.0 pg Normal MCH 29.1 LAB L100.1700 32-36 g/gl Low MCHC 31.0 LAB L100.1810 11.6-14.6 % High RDW CV 16.7 LAB L100.1820 35.1-43.9 fl High RDW SD 54.6 LAB L100.1900 150-450 K/mm3 Normal PLT 321 LAB L100.2000 6.2-12.0 fl Normal MPV 9.4 LAB L100.2100 47-70 % Low NEUT% 42.1 LAB L100.2200 19-41 % High LY% 44.8 LAB L100.2300 0-10 % Normal MONO% 10.0 LAB L100.2400 0-5 % Normal EO% 2.5 LAB L100.2500 0-1 % Normal BASO% 0.4 LAB L100.2550 0.0-0.9 % Normal IM GRAN % 0.200 Result Comment: IG% - Immature Granulocytes (promyelocytes, myelocytes and metamyelocytes) > 1% indicates that a LEFT SHIFT is Present. LAB L100.2620 2.0-7.7 X10 3/uL Normal Absolute Neut 2.0 LAB L100.2720 0.83-4.51 X10 3/ul Normal Absolute Lymph 2.15 Performed By: #### L100.0100 #### [facility] [address] [place], [place], [address] BASIC METABOLIC Collected: 10/12/2018 Status: F Source: [place] PROFILE (BMP) 5:05 AM [facility] REPOSITORY TYPE CODE TESTS RESULT OUT OF RANGE REFERENCE UNITS LAB L501.0100 74-106 mg/dL High GLU 124 Result Comment: Fasting Glucose result from 100 to 125 mg/dL suggests IMPAIRED HOMEOSTASIS per A.D.A. criteria. Please note revised GLUCOSE reference range effective 2017. LAB L501.1000 7-18 mg/dL Normal BUN 15 LAB L501.1100 0.70-1.30 mg/dL Normal CREAT,SERUM 1.16 Result Comment: The validity of the calculated GFR AND GFRAA in patients over 70 years has not been determined. Clinical correlation is essential. LAB L501.1110 >60 mL/min Normal EST GFR 65 Result Comment: Non- GFR Calc LAB L501.1115 >60 mL/min Normal EST GFR - AA 78 Result Comment: GFR Calc LAB L501.1255 ml/min Normal Estimated CRCL 42.90 LAB L501.1300 10-20 RATIO Normal BUN/CRE 12.9 LAB L501.2200 8.5-10 mg/dL Low .1 CA 7.9 LAB L501.5300 136-14 mmol/L Normal 5 NA 145 LAB L501.5600 3.5-5. mmol/L Low 1 K 3.4 LAB L501.5900 98-107 mmol/L High CL 111 LAB L501.6100 21.0-3 mmol/L Normal 2.0 CO2 26.0 LAB L501.6200 5-15 Normal GAP 8 Performed By: #### L500.2500 #### [facility] [address] [place], [place], [address] BEDSIDE GLUCOSE Collected: 10/11/2018 Status: F Source: MANDEEP 9:12 PM [facility] REPOSITORY TYPE CODE TESTS RESULT OUT OF REFERENCE UNITS RANGE LAB L501.080 70-110 mg/dL High BEDSIDE GLU 263 Result Comment: MANAGEMENT OF PATIENT CARE PER NURSING PROTOCOL Performed By: #### L501.080 #### [facility] Point of Care [address] [place] [address] BEDSIDE GLUCOSE Collected: 10/11/2018 Status: F Source: MANDEEP 4:43 PM [facility] REPOSITORY TYPE CODE TESTS RESULT OUT OF REFERENCE UNITS RANGE LAB L501.080 70-110 mg/dL High BEDSIDE GLU 182 Result Comment: MANAGEMENT OF PATIENT CARE PER NURSING PROTOCOL Performed By: #### L501.080 #### [facility] Point of Care [address] [place] [address] BEDSIDE GLUCOSE Collected: 10/11/2018 Status: F Source: MANDEEP 11:01 AM [facility] REPOSITORY TYPE CODE TESTS RESULT OUT OF REFERENCE UNITS RANGE LAB L501.080 70-110 mg/dL High BEDSIDE GLU 198 Result Comment: MANAGEMENT OF PATIENT CARE PER NURSING PROTOCOL Performed By: #### L501.080 #### [facility] Point of Care [address] [place] [address] BEDSIDE GLUCOSE Collected: 10/11/2018 Status: F Source: MANDEEP 6:28 AM [facility] REPOSITORY TYPE CODE TESTS RESULT OUT OF RANGE REFERENCE UNITS LAB L501.080 70-110 mg/dL Normal BEDSIDE GLU 107 Result Comment: MANAGEMENT OF PATIENT CARE PER NURSING PROTOCOL Performed By: #### L501.080 #### [facility] Point of Care [address] [place] [address] BEDSIDE GLUCOSE Collected: 10/10/2018 Status: F Source: MANDEEP 9:17 PM [facility] REPOSITORY TYPE CODE TESTS RESULT OUT OF REFERENCE UNITS RANGE LAB L501.080 70-110 mg/dL High BEDSIDE GLU 172 Result Comment: MANAGEMENT OF PATIENT CARE PER NURSING PROTOCOL Performed By: #### L501.080 #### [facility] Point of Care [address] [place] [address] BEDSIDE GLUCOSE Collected: 10/10/2018 Status: F Source: MANDEEP 4:38 PM [facility] REPOSITORY TYPE CODE TESTS RESULT OUT OF REFERENCE UNITS RANGE LAB L501.080 70-110 mg/dL High BEDSIDE GLU 126 Result Comment: MANAGEMENT OF PATIENT CARE PER NURSING PROTOCOL Performed By: #### L501.080 #### [facility] Point of Care [address] [place] [address] BEDSIDE GLUCOSE Collected: 10/10/2018 Status: F Source: MANDEEP 11:04 AM [facility] REPOSITORY TYPE CODE TESTS RESULT OUT OF REFERENCE UNITS RANGE LAB L501.080 70-110 mg/dL High BEDSIDE GLU 150 Result Comment: MANAGEMENT OF PATIENT CARE PER NURSING PROTOCOL Performed By: #### L501.080 #### [facility] Point of Care [address] [place] [address] BEDSIDE GLUCOSE Collected: 10/10/2018 Status: F Source: MANDEEP 6:40 AM [facility] REPOSITORY TYPE CODE TESTS RESULT OUT OF REFERENCE UNITS RANGE LAB L501.080 70-110 mg/dL High BEDSIDE GLU 134 Result Comment: MANAGEMENT OF PATIENT CARE PER NURSING PROTOCOL Performed By: #### L501.080 #### [facility] Point of Care [address] [place] [address] BEDSIDE GLUCOSE Collected: 10/09/2018 Status: F Source: MANDEEP 8:53 PM [facility] REPOSITORY TYPE CODE TESTS RESULT OUT OF REFERENCE UNITS RANGE LAB L501.080 70-110 mg/dL High BEDSIDE GLU 199 Result Comment: MANAGEMENT OF PATIENT CARE PER NURSING PROTOCOL Performed By: #### L501.080 #### [facility] Point of Care [address] [place] [address] BEDSIDE GLUCOSE Collected: 10/09/2018 Status: F Source: MANDEEP 4:56 PM [facility] REPOSITORY TYPE CODE TESTS RESULT OUT OF REFERENCE UNITS RANGE LAB L501.080 70-110 mg/dL High BEDSIDE GLU 200 Result Comment: MANAGEMENT OF PATIENT CARE PER NURSING PROTOCOL Performed By: #### L501.080 #### [facility] Point of Care [address] [place] [address] BEDSIDE GLUCOSE Collected: 10/09/2018 Status: F Source: MANDEEP 10:50 AM [facility] REPOSITORY TYPE CODE TESTS RESULT OUT OF RANGE REFERENCE UNITS LAB L501.080 70-110 mg/dL Normal BEDSIDE GLU 105 Result Comment: MANAGEMENT OF PATIENT CARE PER NURSING PROTOCOL Performed By: #### L501.080 #### [facility] Point of Care [address] [place] [address] BEDSIDE GLUCOSE Collected: 10/09/2018 Status: F Source: [place] 6:24 AM [facility] REPOSITORY TYPE CODE TESTS RESULT OUT OF RANGE REFERENCE UNITS LAB L501.080 70-110 mg/dL Normal BEDSIDE GLU 89 Result Comment: MANAGEMENT OF PATIENT CARE PER NURSING PROTOCOL Performed By: #### L501.080 #### [facility] Point of Care [address] [place] [address] BEDSIDE GLUCOSE Collected: 10/08/2018 Status: F Source: [place] 9:13 PM [facility] REPOSITORY TYPE CODE TESTS RESULT OUT OF RANGE REFERENCE UNITS LAB L501.080 70-110 mg/dL Normal BEDSIDE GLU 106 Result Comment: MANAGEMENT OF PATIENT CARE PER NURSING PROTOCOL Performed By: #### L501.080 #### [facility] Point of Care [address] [place] [address] BEDSIDE GLUCOSE Collected: 10/08/2018 Status: F Source: [place] 5:01 PM [facility] REPOSITORY TYPE CODE TESTS RESULT OUT OF REFERENCE UNITS RANGE LAB L501.080 70-110 mg/dL High BEDSIDE GLU 114 Result Comment: Dr Hutton Followed MANAGEMENT OF PATIENT CARE PER NURSING PROTOCOL Performed By: #### L501.080 #### [facility] Point of Care [address] [place] [address] BEDSIDE GLUCOSE Collected: 10/08/2018 Status: F Source: [place] 11:25 AM [facility] REPOSITORY TYPE CODE TESTS RESULT OUT OF RANGE REFERENCE UNITS LAB L501.080 70-110 mg/dL Normal BEDSIDE GLU 93 Result Comment: MANAGEMENT OF PATIENT CARE PER NURSING PROTOCOL Performed By: #### L501.080 #### [facility] Point of Care [address] [place] [address] BEDSIDE GLUCOSE Collected: 10/08/2018 Status: F Source: [place] 6:41 AM [facility] REPOSITORY TYPE CODE TESTS RESULT OUT OF RANGE REFERENCE UNITS LAB L501.080 70-110 mg/dL Normal BEDSIDE GLU 87 Result Comment: MANAGEMENT OF PATIENT CARE PER NURSING PROTOCOL Performed By: #### L501.080 #### [facility] Point of Care [address] [place] [address] BEDSIDE GLUCOSE Collected: 10/07/2018 Status: F Source: [place] 9:08 PM [facility] REPOSITORY TYPE CODE TESTS RESULT OUT OF REFERENCE UNITS RANGE LAB L501.080 70-110 mg/dL High BEDSIDE GLU 166 Result Comment: MANAGEMENT OF PATIENT CARE PER NURSING PROTOCOL Performed By: #### L501.080 #### [facility] Point of Care [address] [place] [address] BEDSIDE GLUCOSE Collected: 10/07/2018 Status: F Source: [place] 5:01 PM [facility] REPOSITORY TYPE CODE TESTS RESULT OUT OF REFERENCE UNITS RANGE LAB L501.080 70-110 mg/dL High BEDSIDE GLU 141 Result Comment: MANAGEMENT OF PATIENT CARE PER NURSING PROTOCOL Performed By: #### L501.080 #### [facility] Point of Care [address] [place] [address] BEDSIDE GLUCOSE Collected: 10/07/2018 Status: F Source: [place] 10:53 AM [facility] REPOSITORY TYPE CODE TESTS RESULT OUT OF REFERENCE UNITS RANGE LAB L501.080 70-110 mg/dL High BEDSIDE GLU 200 Result Comment: MANAGEMENT OF PATIENT CARE PER NURSING PROTOCOL Performed By: #### L501.080 #### [facility] Point of Care [address] [place] [address] BEDSIDE GLUCOSE Collected: 10/07/2018 Status: F Source: [place] 6:34 AM [facility] REPOSITORY TYPE CODE TESTS RESULT OUT OF REFERENCE UNITS RANGE LAB L501.080 70-110 mg/dL High BEDSIDE GLU 200 Result Comment: MANAGEMENT OF PATIENT CARE PER NURSING PROTOCOL Performed By: #### L501.080 #### [facility] Point of Care [address] [place] [address] BEDSIDE GLUCOSE Collected: 10/06/2018 Status: F Source: [place] 9:10 PM [facility] REPOSITORY TYPE CODE TESTS RESULT OUT OF REFERENCE UNITS RANGE LAB L501.080 70-110 mg/dL High BEDSIDE GLU 188 Result Comment: MANAGEMENT OF PATIENT CARE PER NURSING PROTOCOL Performed By: #### L501.080 #### [facility] Point of Care [address] [place] [address] CHEST PA AND LATERAL Observed: 10/06/2018 Status: F Source: [place] 7:04 PM [facility] REPOSITORY [facility] Imaging Services [address] [place] [address] Chest PA and Lateral MR#: [id number] Acct: [id number] Name: OMAR VERA Rep #: [id number] : 1940 M 78 From: Vitor Maddox DO PCP: Care Physician, No Primary Status: ADM IN Study: Chest PA and Lateral Date of Exam: 10/06/18 Exam# [id number] Ordering Dr: Dion Cruz MD STUDY: X-RAY CHEST REASON FOR EXAM: Male, 78 years old. Shortness of breath TECHNIQUE: Frontal and lateral views COMPARISON: September 30, 2018 FINDINGS: Interval removal of right venous line. The lungs are expanded. Left pleural effusion is again noted. Bibasilar interstitial prominence. Possible left perihilar infiltrate. Normal size heart. Normal mediastinum and yoselyn. Normal visualized pulmonary arteries. Normal visualized aortic arch and descending thoracic aorta. Degenerative changes of the thoracic spine. Normal visualized ribs, clavicles, and shoulders. There is no demonstrated abnormality of the visualized soft tissue structures of the upper abdomen. RAD/Chest PA and Lateral IMPRESSION: Left pleural effusion is again noted. Bibasilar interstitial prominence. Possible left perihilar infiltrate. Electronically Signed: Vitor Maddox DO at 23:56 EST Tel [phone], Service support , CC: No Primary Care Physician; Dion Cruz MD Entry Level Paralegal: Signed HH, HEMOGLOBIN AND Collected: 10/06/2018 Status: F Source: [place] HEMATOCRIT 5:36 PM [facility] REPOSITORY TYPE CODE TESTS RESULT OUT OF RANGE REFERENCE UNITS LAB L100.1300 13.0-16.5 g/dl Low HGB 10.0 LAB L100.1400 40-54 % Low HCT 31.6 Performed By: #### L100.0600 #### [facility] [address] [facility] [place], [address] BEDSIDE GLUCOSE Collected: 10/06/2018 Status: F Source: [place] 4:41 PM [facility] REPOSITORY TYPE CODE TESTS RESULT OUT OF REFERENCE UNITS RANGE LAB L501.080 70-110 mg/dL High BEDSIDE GLU 125 Result Comment: MANAGEMENT OF PATIENT CARE PER NURSING PROTOCOL Performed By: #### L501.080 #### [facility] Point of Care [address] [facility] [place] [address] MRI ABD WITH AND W/O Observed: 10/06/2018 Status: F Source: [place] CONTRAST 1:17 PM [facility] REPOSITORY [facility] Imaging Services [address] [place] [address] MRI Abd WITH and W/O Contrast MR#: [id number] Acct: [id number] Name: OMAR VERA Rep #: [id number] : 1940 M 78 From: Kwadwo Newman MD PCP: Care Physician, No Primary Status: REG CLI Study: MRI Abd WITH and W/O Contrast Date of Exam: 10/06/18 Exam# [id number] Ordering Dr: Shai Ling DO STUDY: MRI ABDOMEN WITH AND WITHOUT CONTRAST REASON FOR EXAM: Male, 78 years old. Gastric neuroendocrine tumor. Recent diagnosis of gastric mass. TECHNIQUE: Standardized fat and water weighted pulse sequences were obtained in all 3 orthogonal planes post contrast administration. 6 ml of Gadavist contrast material was administered intravenously for the contrast portion of the examination. COMPARISON: X-ray chest 10/06/2017, 09/30/2018, 09/22/2018. FINDINGS: Body wall soft tissues: No acute process. Osseous structures: Mild spondylosis. No acute process is visible. Inferior chest: Complex loculated left pleural effusion. Difficult to discern if there is a mass or dense consolidation at the left lower lobe, medial basilar favoring dense consolidation with some air bronchograms. Further characterization is necessary. Normal distal esophagus. Mild to moderate cardiomegaly without pericardial effusion. Hepatobiliary: Tiny left hepatic cyst measuring about 5 mm, too small for additional characterization. Otherwise normal liver parenchyma. No hepatomegaly. Nondilated intrahepatic biliary tree and common bile duct. A few tiny gallstones within noninflamed gallbladder. Pancreas: Trace ductal ectasia, mild to moderate atrophy, tiny cystic focus at the distal pancreatic tail measuring about 3 mm, too small for additional imaging characterization. Spleen: Normal. Adrenal glands: Normal. Urinary tract: There are several small grossly benign appearing renal cysts, the largest measuring approximately 9 mm, too small for definitive imaging characterization. There is no hydronephrosis. Vasculature: No acute process. Stomach: The gastric wall appears normal. Normal gastric lumen.. Lying medial to the lesser curvature of the gastric fundus, closely abutting the wall but with a preserved fat plane that does not appear to violate the serosa, there is a multi lobulated mass exhibiting low to intermediate signal on T1, intermediate signal on T2, bright signal on high B-value diffusion images consistent with diffusion restriction. Morphology of the lobulated mass favors multiple adjacent oval masses, quite likely a cluster of enlarged lymph nodes. The dominant oval mass superior-posterior measures approximately 2.8 x 2.0By 2.8 cm, circumscribed margins, oval shape. 3 additional immediately adjacent circumscribed oval masses masses measure 2.4 cm and 2.3 cm and 1.7 cm respectively. These exhibit a heterogeneous pattern of internal enhancement, and relatively bright rim enhancement. MRI/MRI Abd WITH and W/O Contrast IMPRESSION: 1. There are 4 closely adjacent sharply circumscribed oval enhancing masses which lie above the plane of the pancreas, just medial to the serosal margin of the lesser curvature of the gastric fundus. Intimately adjacent to the gastric artery, without apparent violation of the serosal margin of the stomach and therefore not suspected to represent extension of a gastric mass. Morphology and enhancement characteristics favor a cluster of enlarged lymph nodes. Quite suspicious for malignancy, favoring metastatic adenopathy. 2. There is no convincing evidence of gastric mass. 3. Consolidating features at the right lung base medially, with what appears to be a loculated complex pleural effusion at the left lung base. 4. Cardiomegaly. Electronically Signed: Kwadwo Newman MD at 14:18 EST Tel , Service support , CC: No Primary Care Physician; Shai Ling DO Entry Level Paralegal: Signed BEDSIDE GLUCOSE Collected: 10/06/2018 Status: F Source: [place] 11:45 AM [facility] REPOSITORY TYPE CODE TESTS RESULT OUT OF REFERENCE UNITS RANGE LAB L501.080 70-110 mg/dL High BEDSIDE GLU 147 Result Comment: MANAGEMENT OF PATIENT CARE PER NURSING PROTOCOL Performed By: #### L501.080 #### [facility] Point of Care [address] [facility] [place] [address] CONSULTATION Observed: 10/06/2018 Status: F Source: [place] 8:46 AM [facility] REPOSITORY [facility] Medical Records Department [address] [place] [address] Consultation 10/06/18 0832 MR#: [id number] Acct: [id number] Name: OMAR VERA Rep #: [id number] : 1940 78 From: Shai Ling DO PCP: Care Physician, No Primary Status: ADM IN Y Location: [facility] [id number] Problem List (1) Primary neuroendocrine carcinoma of stomach Status: Acute - Consult Date of Consult: 10/06/18 - Reason for Consult HPI: patient is a 78-year-old male who has a past medical history significant for COPD. He was admitted to [facility] at the end of July for pneumonia. Evidently he was treated with steroids in addition to antibiotics. a CT of the chest was performed during his hospitalization and he was observed to have a possible gastric mass. EGD was entertained but deferred secondary to his respiratory status at the time.He was discharged to the [facility] transitional care unit. while there he developed a syncopal episode and was noted to have melena. He was transferred to the emergency department. He was then admitted to the ICU for hypovolemic shock and was managed acutely with volume resuscitation and transfusion. He underwent an urgent EGD which revealed a sessile gastric mass that was biopsied. He was also observed to have a duodenal ulcer with visible vessel. The vessel was treated with epinephrine injection. 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 The patient does not have a history of reflux. However in retrospect he may have been having some melena/bright red blood per stool for several months. He is also lost weight. His appetite is rather poor. He denies nausea. He denies abdominal pain. He has been having diarrhea and bowel incontinence. Allergies Iodinated Contrast- Oral and IV Dye [CONTRASTS] Adverse Reaction (Verified 09/30/18 16:13) Unknown NSAIDS (Non-Steroidal Anti-Inflamma Adverse Reaction (Verified 09/30/18 16:13) GI bleed Current Medications Acetaminophen (Tylenol) 1,000 mg PO Q6H PRN PRN PRN Reason: MILD PAIN (1-310) Albuterol Sulfate (Ventolin Aerosols) 2.5 mg INHALATION Q2H PRN PRN PRN Reason: SOB AND /OR WHEEZING Albuterol/Ipratropium (Duoneb) 3 ml INHALATION Q2H PRN PRN PRN Reason: SOB AND /OR WHEEZING Last Admin: 10/05/18 09:27 Dose: 3 ml Bisacodyl (Dulcolax) 10 mg PO DAILY [facility] Last Admin: 10/06/18 05:47 Dose: 10 mg Calamine/Phenol (Calmoseptine Ointment) 1 applic TOPICAL BID [facility]; Protocol Last Admin: 10/06/18 05:42 Dose: 1 applicatio Losartan Potassium (Cozaar) 50 mg PO DAILY [facility] Last Admin: 10/06/18 05:45 Dose: 50 mg Metformin HCl (Glucophage) 500 mg PO DAILYCM [facility] Last Admin: 10/06/18 08:10 Dose: 500 mg Metoprolol Succinate (Toprol Xl (Beta Radha)) 50 mg PO DAILY [facility] Last Admin: 10/06/18 05:45 Dose: 50 mg Pantoprazole Sodium (Protonix) 40 mg PO BID [facility] Last Admin: 10/06/18 05:45 Dose: 40 mg Polyethylene Glycol (Miralax) 17 gm PO DAILY [facility] Last Admin: 10/06/18 05:44 Dose: 17 gm [facility]ysaccharide [facility] Last Admin: 10/06/18 08:10 Dose: 150 mg Senna/Docusate Sodium (Senokot-S, Britt-Colace) 1 tablet PO BID [facility] Last Admin: 10/06/18 05:45 Dose: 1 tablet Tamsulosin HCl (Flomax) 0.4 mg PO DAILY [facility] Last Admin: 10/06/18 05:45 Dose: 0.4 mg Tuberculin PPD (Tubersol, Aplisol, Ppd) 5 tu ID X1 ONE Stop: 10/12/18 10:01 Problem List Upper gastrointestinal bleed (Acute) Multiple falls (Chronic) Debility (Chronic) Healthcare-associated pneumonia (Chronic) Intra-abdominal lymphadenopathy (Chronic) Primary neuroendocrine carcinoma of stomach (Acute) Surgical History: - - Left heart cath, EGD with cauterization gastric ulcer, EGD with gastric biopsy, epinephrine injection duodenal ulcer. Psychiatric History: No pertinent psych hx Lives: Spouse/ Significant Other Smoking Status: Former smoker - 30 pack year smoking history. Tobacco Use: Non-smoker Alcohol: None Drugs: None - *Family History Maternal History Items: No pertinent history Paternal History Items: No pertinent history Review of Systems Constitutional: Denies: Chills, Fever HEENT: Denies: Head Aches, Sinus Congestion, Sinus Drainage Cardiovascular: Denies: Chest Pain, Palpitations Respiratory: Denies: Cough has improved. No sputum production currently. Gastrointestinal: See above. Genitourinary: Denies: Dysuria Musculoskeletal: Denies: Joint Pain, Joint Tenderness Skin: Denies: Rash, Wounds Neurological: Denies: Numbness, Tingling, Focal weakness Psychiatric: Denies: Anxiety, Depression, Homicidal Ideations, Suicidal Ideations Hematologic/ Lymphatic: Denies: Easy Bruising, Easy Bleeding PHYSICAL EXAM: Vitals: Vital Signs Temp 98.9 F 10/05/18 15:58 Pulse 96 10/06/18 05:45 Resp 16 10/05/18 15:58 BP 134/75 H 10/06/18 05:45 Pulse Ox 98 10/05/18 15:58 Intake AND Output Intake Total 330 / 330 580 / 580 90 / 90 Fatigued-appearing but in no acute distress. EYES: Sclerae are anicteric bilaterally. NECK: Supple. LYMPHATIC: There is no palpable cervical or supraclavicular adenopathy. RESPIRATORY: Inspiratory breath sounds are of diminished intensity in all sibley. CARDIOVASCULAR: Rhythm is regular. ABDOMEN: The abdomen is nondistended. No organomegaly. No mass appreciated and no tenderness. Extremities: No swelling or edema. SKIN: No jaundice or rash. Laboratory Results - last 24 hr Lactate Dehydrogenase 281 H POC Glucose 196 H 126 H Lactate Dehydrogenase POC Glucose 131 H 110 ASSESSMENT/PLAN: 1) high-grade gastric neuroendocrine tumor. Assessment: -Unclear as to whether the diarrhea is related but otherwise patient is asymptomatic from the disease. -I discussed the case with Dr. Vargas. Endoscopically it was evident that the duodenal ulcer had cause the significant GI bleed. Most likely etiology of the ulcer is stress and recent use of high-dose steroids to manage COPD exacerbation/pneumonia. -I discussed with the patient and his daughter the approach to workup. I recommended staging with an abdominal MRI given his allergy to IV contrast material and the need to avoid steroid prep given the recent ulcer. Also he'll require biochemical workup which will include a 24-hour urine collection to quantitate 5-hydroxyindoleacetic acid. -We also discussed the potential use of octreotide to potentially palliate diarrhea and also potentially increase progression free survival. -Clinically, likelihood of Mitch-Wilkinson syndrome very low given age of presentation. Additionally cannot stop proton pump inhibitor currently in order to measure gastrin levels. Plan: -MRI abdomen. -24 hour urine for 5-HIAA. -Can start short acting octreotide 100 g subcutaneous every 8 hours following MRI. 10/06/18 0846 <Electronically signed by Shai Ling DO> Date Shai Ling DO Cosigner Signature (if applicable): Date CC: No Primary Care Physician; Shanna Vera DO; Rusty Vargas MD; Shai Ling DO; Dion Cruz MD Signed VITAMIN B12 Collected: 10/06/2018 Status: F Source: [place] 8:35 AM [facility] REPOSITORY TYPE CODE TESTS RESULT OUT OF RANGE REFERENCE UNITS LAB L503.0105 211-911 pg/mL Normal Vitamin B12 735 Performed By: #### L503.0105 #### [facility] [address] [place], [address] BEDSIDE GLUCOSE Collected: 10/06/2018 Status: F Source: [place] 6:39 AM [facility] REPOSITORY TYPE CODE TESTS RESULT OUT OF RANGE REFERENCE UNITS LAB L501.080 70-110 mg/dL Normal BEDSIDE GLU 110 Result Comment: MANAGEMENT OF PATIENT CARE PER NURSING PROTOCOL Performed By: #### L501.080 #### [facility] Point of Care [address] [place] [address] BEDSIDE GLUCOSE Collected: 10/05/2018 Status: F Source: [place] 9:19 PM [facility] REPOSITORY TYPE CODE TESTS RESULT OUT OF REFERENCE UNITS RANGE LAB L501.080 70-110 mg/dL High BEDSIDE GLU 131 Result Comment: MANAGEMENT OF PATIENT CARE PER NURSING PROTOCOL Performed By: #### L501.080 #### [facility] Point of Care [address] [place] [address] 12 LEAD ELECTROCARDIOGRAM Observed: 10/05/2018 Status: F Source: [place] 4:56 PM [facility] REPOSITORY [facility] Cardiovascular Services [address] [place] [address] 12 Lead EKG 09/30/18 1623 MR#: [id number] Acct: [id number] Name: OMAR VERA Rep #: [id number] : 1940 78 From: Kye Tim MD Attending Dr: David Kim DO Status: DIS IN Ordering Dr: Alex Crespo MD Date: 09/30/18 Location: [facility] Sex: M C Admitted: 01/10/19 Test Reason : Blood Pressure : / mmHG Vent. Rate : 103 BPM Atrial Rate : 103 BPM P-R Int : 148 ms QRS Dur : 060 ms QT Int : 330 ms P-R-T Axes : 065 -26 053 degrees QTc Int : 432 ms Sinus tachycardia Possible Anterior infarct , age undetermined Abnormal ECG Confirmed by KYE TIM MD ([id number]), video news editor BILL CORRIGAN ([id number]) on 10/05/2018 4:55:48 PM Referred By: SL Confirmed By:KYE TIM MD 10/05/18 1655 Date Kye Tim MD CC: No Primary Care Physician; David Kim DO; Alex Crespo MD Signed BEDSIDE GLUCOSE Collected: 10/05/2018 Status: F Source: [place] 4:47 PM [facility] REPOSITORY TYPE CODE TESTS RESULT OUT OF REFERENCE UNITS RANGE LAB L501.080 70-110 mg/dL High BEDSIDE GLU 126 Result Comment: MANAGEMENT OF PATIENT CARE PER NURSING PROTOCOL Performed By: #### L501.080 #### [facility] Point of Care [address] [place] [address] BEDSIDE GLUCOSE Collected: 10/05/2018 Status: F Source: [place] 11:38 AM [facility] REPOSITORY TYPE CODE TESTS RESULT OUT OF REFERENCE UNITS RANGE LAB L501.080 70-110 mg/dL High BEDSIDE GLU 196 Result Comment: MANAGEMENT OF PATIENT CARE PER NURSING PROTOCOL Performed By: #### L501.080 #### [facility] Point of Care [address] [facility] [place] [address] DISCHARGE SUMMARY Observed: 10/05/2018 Status: F Source: [place] 9:14 AM [facility] REPOSITORY [facility] Medical Records Department [address] [facility] [address] [place] [address] Discharge Summary 10/04/18 1437 MR#: [id number] Acct: [id number] Name: OMAR VERA Rep #: [id number] : 1940 78 From: Jr MIRANDA PCP: Care Physician, No Primary Status: DIS IN Y Location: [place] [id number] ADDENDUM by David Kim DO on 10/05/18 at 0914 Code Visit Seen and examined today independently of Jr Nelson, I also talked with the patient's daughter who is a physician. Patient does not appear to understand that he will be transferred to TCU for rehab, patient's daughter states that she has talked to the patient about this and he has understood it as far she knows. Patient has refused any treatment for his gastric mass. On 10/04/18, patient was seen and examined: On examination he appeared in good health and spirits. Vital signs as documented. Skin warm and dry and without overt rashes. Neck without JVD. Lungs clear. Heart exam notable for regular rhythm, normal sounds and absence of murmurs, rubs or gallops. Abdomen unremarkable and without evidence of organomegaly, masses, or abdominal aortic enlargement. Extremities nonedematous. Neuro: Cranial nerves II through XII are grossly intact, no focal motor deficits were noted, sensation to light touch and pinprick intact. Psych: Patient is alert and oriented x3, he does not appear anxious or depressed On 10/04/18, patient was seen and examined and felt to be in stable condition for transfer to TCU for further care, patient's gastric biopsy result was pending at the time of his discharge to TCU. I have reviewed Jr Nelson's discharge summary including final diagnosis and medical plan and endorse it. Inpatient E AND M: [id number] Disch Hosp 10/05/18 0914 <Electronically signed by David Kim DO> Date David Kim DO cc: No Primary Care Physician; RUTH Nelson; David Kim DO * Signed Discharge Date and Diagnosis - Problem List Patient Problems: Active and Suspected Problems Hypertensive urgency (Acute) Duodenal ulcer (Acute) Acute blood loss anemia (Acute) GI bleed (Acute) gastric mass SPIKE (acute kidney injury) (Acute) Lactic acidosis (Acute) Syncope (Acute) Hypovolemic shock (Acute) Date of Admission: 09/30/18 Date of Discharge: 10/04/18 - Primary Discharge Diagnosis Active and Suspected Problems Acute blood loss anemia secondary to gastric mass, duodenal ulcers Hemorrhagic shock secondary to above Hypertensive urgency Syncope secondary to anemia Type 2 diabetes mellitus Hypertension Hyperlipidemia GERD - Secondary Discharge Diagnosis Chronic Problems Chronic obstructive pulmonary disease (Chronic) Bronchiectasis (Chronic) Gastric mass (Chronic) Diabetes mellitus (Chronic) Hypertension (Chronic) Hyperlipidemia (Chronic) GERD (gastroesophageal reflux disease) (Chronic) Hospital Course and Treatment Imaging Results: RAD/CXR for Line Placement IMPRESSION: Right central venous line in a grossly satisfactory position. Left pleural effusion, cannot exclude associated left basilar atelectasis and/or pneumonia. Persistent right basilar opacity may be secondary to underlying atelectasis and/or pneumonia. Consults: Masoud - hop farm worker Alicia - general surgery Operations: None Procedures: EGD Summary of Care Provided: Hospital course: The patient is a 78 year old M with past medical history as above who was sent from the TCU after experiencing a syncopal episode and black stools to the emergency room, he was found to have hemorrhagic shock and anemia suspected secondary to upper GI bleed. He had recently had a gastric mass found on a CT scan during a prior hospitalization for pneumonia. The patient was admitted to the ICU and given 4 units of packed red blood cells. General surgery was consulted and performed an EGD in the ICU which found a gastric mass which was biopsied and a duodenal ulcer with a vein present that was injected with epinephrine. He was placed on IV PPI which was transitioned to p.o. twice daily Protonix. He remained stable and was transitioned to the PCU where he was changed to oral Protonix and had his diet gradually advanced. His hemoglobin remained stable and he had no further issues with bleeding, blood loss, or hypotension. He did have hypertensive urgency following the EGD and was given as needed medications such as labetalol and hydralazine which were eventually discontinued without further need for additional oral medications at this time. He was discharged back to care home, the TCU, in stable condition with the addition of Protonix twice daily at discharge. He will need to follow-up with Dr. Vargas in 1 week and with his PCP in 1- 2 weeks. This patient was seen by Jr Nelson PA-C under the supervision of Doctor Kim. [] Patient Problems: Active and Suspected Problems Hypertensive urgency (Acute) Duodenal ulcer (Acute) Acute blood loss anemia (Acute) GI bleed (Acute) gastric mass SPIKE (acute kidney injury) (Acute) Lactic acidosis (Acute) Syncope (Acute) Hypovolemic shock (Acute) - Physical Exam General: Alert, Oriented x3, Cooperative HEENT: Atraumatic, PERRLA, EOMI, Normocephalic Neck: Supple, No JVD, Negative Carotid Bruits Lungs: Clear to auscultation, Normal air movement Cardiovascular: Regular rate, No murmurs Abdomen: Bowel Sounds Present, Soft, Non Tender Extremities: No edema, Capillary Refill Less than 3 Seconds Skin: No rashes, No breakdown Musculoskeletal: No Tenderness to Palpation of Joints or Extremities Neurological: Cranial nerves II-XII grossly intact Psych/Mental Status: Normal Affect, Appropriate, Alert and oriented to time, place, person, mood and affect Vital Signs Temp Pulse Resp BP Pulse Ox 98.9 F 95 16 119/56 L 95 10/04/18 11:08 10/04/18 12:39 10/04/18 11:08 10/04/18 11:08 10/04/18 11:08 Oxygen Flow Rate (L/min) 2 Oxygen Delivery Method Room Air Weight: 138 lb 3.677 oz Body Mass Index (BMI) 23.5 Intake and Output for Last 24 Hours Intake Total 2648 / 2648 1843.3 / 1843.3 490 / 490 Output Total 2200 / 2200 2605 / 2605 100 / 100 Balance 448 / 448 -761.7 / -761.7 390 / 390 Laboratory Tests Past 24 Hrs POC Glucose POC Glucose 230 H 108 109 POC Glucose 149 H Discharge Diet: No Restrictions Discharge Activity: Return to Normal Activity Home Medications: Medications to take at Discharge Ipratropium/Albuterol Sulfate [Duoneb] 3 ml INHALATION Q2H PRN PRN 09/20/18 Losartan Potassium [Cozaar] 50 mg PO DAILY 09/20/18 Metformin HCl 500 mg PO DAILY 09/20/18 Metoprolol(XL)Succ [Toprol Xl (Beta Radha)] 50 mg PO DAILY 09/20/18 Acetaminophen [Tylenol] 500 mg PO Q6H PRN PRN 09/30/18 Albuterol Aerosols [Ventolin Aerosols] 2.5 mg INHALATION Q2H PRN PRN 09/30/18 Bisacodyl [Dulcolax] 10 mg PO Q6H PRN PRN 09/30/18 Menthol/Lanolin/Calamine/Znox [Calmoseptine Ointment] 1 applic TOPICAL BID 09/30/18 Mineral Oil/Petrolatum,White [Eucerin] 1 applic TOPICAL DAILY PRN PRN 09/30/18 Mirtazapine [Remeron] 7.5 mg PO QHS 09/30/18 Polyethylene Glycol 3350 [Miralax] 17 gm PO DAILY 09/30/18 Tamsulosin HCl 0.4 mg PO DAILY 09/30/18 Pantoprazole Sodium [Protonix] 40 mg PO BID #0 tablet 10/04/18 Primary Care Physician: Care Physician,No Primary [Primary Care Provider] - Please follow up with your Primary Care Physician in: 1-2 weeks Please Follow Up With: Rusty Vargas MD When: 1 week Disposition: Shelter facility Minutes spent on discharge:: 35 Patient Condition:: Stable Medical Necessity - Tobacco Use Smoking Status: Former smoker Tobacco Use: Non-smoker Meaningful Use Info Meaningful Use Diagnoses (Choose all that apply): None applicable 10/04/18 1445 <Electronically signed by Jr MIRANDA> Date Jr MIRANDA 10/04/18 1719<Electronically signed by David Kim DO> Cosigner Signature (if applicable): Date David Kim DO CC: No Primary Care Physician; RUTH Nelson; David Kim DO Signed BEDSIDE GLUCOSE Collected: 10/05/2018 Status: F Source: [place] 6:23 AM [facility] REPOSITORY TYPE CODE TESTS RESULT OUT OF REFERENCE UNITS RANGE LAB L501.080 70-110 mg/dL High BEDSIDE GLU 116 Result Comment: MANAGEMENT OF PATIENT CARE PER NURSING PROTOCOL Performed By: #### L501.080 #### [facility] Point of Care [address] [place], [place] [address] CBC W/DIFF, AUTOMATED Collected: 10/05/2018 Status: F Source: [place] 5:10 AM [facility] REPOSITORY TYPE CODE TESTS RESULT OUT OF RANGE REFERENCE UNITS LAB L100.1000 4.4-11.0 K/mm3 Normal WBC 5.6 LAB L100.1200 4.6-6.2 M/mm3 Low RBC 3.27 LAB L100.1300 13.0-16.5 g/dl Low HGB 9.7 LAB L100.1400 40-54 % Low HCT 29.8 LAB L100.1500 80-94 fL Normal MCV 91.1 LAB L100.1600 27.0-32.0 pg Normal MCH 29.7 LAB L100.1700 32-36 g/gl Normal MCHC 32.6 LAB L100.1810 11.6-14.6 % High RDW CV 16.6 LAB L100.1820 35.1-43.9 fl High RDW SD 52.6 LAB L100.1900 150-450 K/mm3 Normal PLT 194 LAB L100.2000 6.2-12.0 fl Normal MPV 10.1 LAB L100.2100 47-70 % Normal NEUT% 50.9 LAB L100.2200 19-41 % Normal LY% 35.1 LAB L100.2300 0-10 % High MONO% 10.3 LAB L100.2400 0-5 % Normal EO% 3.1 LAB L100.2500 0-1 % Normal BASO% 0.2 LAB L100.2550 0.0-0.9 % Normal IM GRAN % 0.400 Result Comment: IG% - Immature Granulocytes (promyelocytes, myelocytes and metamyelocytes) > 1% indicates that a LEFT SHIFT is Present. LAB L100.2620 2.0-7.7 X10 3/uL Normal Absolute Neut 2.8 LAB L100.2720 0.83-4.51 X10 3/ul Normal Absolute Lymph 1.95 Performed By: #### L100.0100 #### [facility] [address] [place], [place], [address] BASIC METABOLIC Collected: 10/05/2018 Status: F Source: [place] PROFILE (BMP) 5:10 AM [facility] REPOSITORY TYPE CODE TESTS RESULT OUT OF RANGE REFERENCE UNITS LAB L501.0100 74-106 mg/dL High GLU 116 Result Comment: Fasting Glucose result from 100 to 125 mg/dL suggests IMPAIRED HOMEOSTASIS per A.D.A. criteria. Please note revised GLUCOSE reference range effective 2017. LAB L501.1000 7-18 mg/dL Normal BUN 14 LAB L501.1100 0.70-1.30 mg/dL Normal CREAT,SERUM 1.13 Result Comment: The validity of the calculated GFR AND GFRAA in patients over 70 years has not been determined. Clinical correlation is essential. LAB L501.1110 >60 mL/min Normal EST GFR 67 Result Comment: Non- GFR Calc LAB L501.1115 >60 mL/min Normal EST GFR - AA 80 Result Comment: GFR Calc LAB L501.1255 ml/min Normal Estimated CRCL 44.14 LAB L501.1300 10-20 RATIO Normal BUN/CRE 12.4 LAB L501.2200 8.5-10 mg/dL Low .1 CA 7.9 LAB L501.5300 136-14 mmol/L Normal 5 NA 142 LAB L501.5600 3.5-5. mmol/L Normal 1 K 3.9 LAB L501.5900 98-107 mmol/L High CL 110 LAB L501.6100 21.0-3 mmol/L Normal 2.0 CO2 24.0 LAB L501.6200 5-15 Normal GAP 8 Performed By: #### L500.2500 #### [facility] [address] [place], [address] LDH Collected: 10/05/2018 Status: F Source: [place] 5:10 AM [facility] REPOSITORY TYPE CODE TESTS RESULT OUT OF RANGE REFERENCE UNITS LAB L504.2610 87-241 U/L High LDH 281 Performed By: #### L504.2610 #### [facility] [address] [place], [address] BEDSIDE GLUCOSE Collected: 10/04/2018 Status: F Source: [place] 10:33 PM [facility] REPOSITORY TYPE CODE TESTS RESULT OUT OF REFERENCE UNITS RANGE LAB L501.080 70-110 mg/dL High BEDSIDE GLU 150 Result Comment: MANAGEMENT OF PATIENT CARE PER NURSING PROTOCOL Performed By: #### L501.080 #### [facility] Point of Care [address] [place] [address] CONSULTATION Observed: 10/04/2018 Status: F Source: [place] 1:15 PM [facility] REPOSITORY [facility] Medical Records Department [address] [place] [address] Consultation 09/30/18 1754 MR#: [id number] Acct: [id number] Name: OMAR VERA Rep #: [id number] : 1940 78 From: Rusty Vargas MD PCP: Care Physician, No Primary Status: ADM IN Location: [place] [address] Problem List (1) Gastric mass Status: Acute (2) GI bleed Status: Acute Qualifiers: Gastritis type: other gastritis Comment: gastric mass Reason for Consult Date of Consultation: 09/30/18 History of Present Illness: The patient is a 78 year old M who has been in the transitional care unit since September 20. Previously, patient was at [facility] with pneumonia. Patient has CT imaging of his chest but cut the upper part of his abdomen that showed a mass in his stomach. His recommend that he undergo an EGD, however the patient declined given his tenuous respiratory status at that time. Is no note of any bleeding at that time. Patient was transferred over to the transitional care unit here [facility]. Today, patient had a syncopal episode when he was on the commode. Patient eventually did came to and did receive IV fluids but was noted to have melena and sent to the emergency room. In the emergency room, patient received IV fluids, he had a lactic acid of 3.1. General surgery, with Dr. Vargas, was contacted and the plan is for an EGD on the at around noon. Discussed with Dr. Vera, the patient's daughter, who stated that her mother told her and the patient has been having some bleeding prior to this as well. Patient does have a remote history of EGD that did require cauterization in the past. This was done secondary to NSAID induced possible gastroduodenal bleeding. At the present time I believe the patient does have some hypovolemic shock he is tachycardic and slightly hypotensive. He is actively receiving IV bolus in the emergency department and more than likely will need to have several blood transfusions tonight. Past Medical History Past Medical History (Chronic Problems): Chronic Problems Chronic obstructive pulmonary disease (Chronic) Bronchiectasis (Chronic) Diabetes mellitus (Chronic) Hypertension (Chronic) Hyperlipidemia (Chronic) GERD (gastroesophageal reflux disease) (Chronic) Allergies Iodinated Contrast- Oral and IV Dye [CONTRASTS] Adverse Reaction (Verified 09/30/18 16:13) Unknown NSAIDS (Non-Steroidal Anti-Inflamma Adverse Reaction (Verified 09/30/18 16:13) GI bleed Home Medications: Ambulatory Orders Medication Instructions Recorded Ipratropium/Albuterol Sulfate 3 ml INHALATION Q2H PRN PRN 09/20/18 [Duoneb] Losartan Potassium [Cozaar] 50 mg PO DAILY 09/20/18 Surgical History: - - Left heart cath, EGD with cauterization gastric ulcer. Psychiatric History: No pertinent psych hx Smoking Status: Former smoker Tobacco Use: Non-smoker - *Family History Maternal History Items: No pertinent history Paternal History Items: No pertinent history Review of Systems Constitutional: Reports: Anorexia, Malaise, Weight Change, Fatigue. Denies: Chills, Fever Cardiovascular: Denies: Chest Pain, Chest Pressure, Chest Tightness, Palpitations Respiratory: Denies: Cough, Hemoptysis, Shortness of breath at rest, Shortness of breath upon exertion, Wheezing Gastrointestinal: Reports: Melena. Denies: Abdominal Pain, Constipation, Diarrhea, Hematemesis, Nausea, Vomiting Genitourinary: Denies: Dysuria, Frequency, Hematuria, Urgency Musculoskeletal: Denies: Joint Pain Skin: Denies: Lesions, Rash, Wounds Hematologic/ Lymphatic: Reports: Anemia. Denies: Adenopathy, Easy Bruising, Easy Bleeding Patient Problems: Active and Suspected Problems Debility (Acute) Multiple falls (Acute) Healthcare-associated pneumonia (Acute) Urinary tract infection (Acute) Gastric mass (Acute) Intra-abdominal lymphadenopathy (Acute) Acute blood loss anemia (Acute) GI bleed (Acute) gastric mass SPIKE (acute kidney injury) (Acute) Lactic acidosis (Acute) Syncope (Acute) - Physical Exam General: Alert, Cooperative, No apparent distress Oral: Dry Mucosa Neck: Supple, No JVD, Negative Carotid Bruits, No Nodes Lungs: Clear to auscultation Cardiovascular: Regular rate, Regular Rhythm, No murmurs Abdomen: Bowel Sounds Present, Soft, Non Tender, Non-Distended Skin: No rashes, No breakdown Psych/Mental Status: Normal Affect, Appropriate Vital Signs Temp Pulse Resp BP Pulse Ox 98.4 F 104 H 16 98/58 L 100 09/30/18 16:11 09/30/18 16:11 09/30/18 16:11 09/30/18 16:11 09/30/18 16:11 Oxygen Flow Rate (L/min) 2 Oxygen Delivery Method Nasal Cannula Weight: 146 lb 6.191 oz Body Mass Index (BMI) 22.9 Laboratory Tests Past 24 Hrs PT 15.1 H INR 1.2 APTT 30.9 Lactic Acid 3.1 H Blood Type O POSITIVE Antibody Screen NEGATIVE Assessment/Plan All Active Problems Debility (Acute) Multiple falls (Acute) Healthcare-associated pneumonia (Acute) Urinary tract infection (Acute) Gastric mass (Acute) Intra-abdominal lymphadenopathy (Acute) Acute blood loss anemia (Acute) GI bleed (Acute) SPIKE (acute kidney injury) (Acute) Lactic acidosis (Acute) Syncope (Acute) I believe the bleeding source is most likely going to be this gastric mass. At the present time with his hypovolemic shock I believe it is appropriate to admit him hydrate him and probably give him several units of blood to see if we can make him normotensive. I will plan on doing an upper endoscopy on him around noon or 1:00 tomorrow afternoon. It is obviously concerning to me that his lactic acidosis is at 3.1. Unfortunately I think that he has a significant mortality risk above 30% and encroaching possibly 50% with this admission. I have discussed this extensively with the patient as well as the patient's daughter (Dr. Vera). If the patient is in the ICU the my plan will be to do the scope in the ICU tomorrow. If he is on the floor he obviously will be brought down to the endoscopy unit. Hopefully we will have success using the argon beam wheelchair rental clerk with this mass. 10/04/18 1312 <Electronically signed by Rusty Vargas MD> Date Rusty Vargas MD Cosigner Signature (if applicable): Date CC: No Primary Care Physician; Jr Meredith MD; Rusty Vargas MD Signed OPERATIVE REPORT Observed: 10/04/2018 Status: F Source: [place] 1:15 PM [facility] REPOSITORY [facility] Medical Records Department [address] [facility] [place] [address] Operative Report 10/01/18 0041 MR#: [id number] Acct: [id number] Name: OMAR VERA Rep #: [id number] : 1940 78 From: Rusty Vargas MD PCP: Care Physician, No Primary Status: ADM IN Location: [place] [address] Problem List (1) Gastric mass Status: Acute (2) GI bleed Status: Acute Qualifiers: Gastritis type: other gastritis Comment: gastric mass (3) Hypovolemic shock Status: Acute Report of Operation Date of Procedure: 10/01/18 Pre-Operative Diagnosis: Hypovolemic shock secondary to GI bleed Post-Operative Diagnosis: Same Surgery/Procedure Performed:: 1. Right subclavian triple- lumen catheter. 2. Right radial art line Type of Anesthesia:: Local Description of Procedure: Patient was in the intensive care unit. Bed was placed in the headdown position. The right subclavian neck and chest area was sterilely prepped and draped in usual fashion. Local was injected in the subclavian area Seldinger's technique was used to gain access to the right subclavian vein. Guidewire was placed through the needle the needle was removed. Skin mina was made in the chest dilator was placed over the guidewire and remove triple lumen catheter was placed over the guidewire and the guidewire was then removed. Butterfly Was applied and a U stitch with 3-0 nylon was used to suture the catheter to the chest. Sterile dressings were applied. Portable chest x-ray was obtained showing no pneumothorax. Right wrist was sterilely prepped and draped in usual fashion local was injected arrow dart kit was used to gain access into the right radial artery it did not thread well and I had to inject more local proximal in the arm and use a another arrow dart kit at this point I was able to gain access to the right radial artery. It was sutured to the skin with a 3-0 nylon. Sterile dressings were applied patient tolerated this procedure well. - Admit VTE Documentation VTE Present on Admission: No VTE Mechan Device Prophylaxis: SCD's VTE Pharm Prophylaxis ordered?: No Reason prophylaxis not ordered:: Treatment Not Indicated 10/04/18 1312 <Electronically signed by Rusty Vargas MD> Date Rusty Vargas MD CC: No Primary Care Physician; Jr Meredith MD; Rusty Vargas MD Signed TRANSFER TO [facility] Observed: 10/04/2018 Status: F Source: [facility] 12:19 PM [facility] REPOSITORY [facility] Medical Records Department [address] [place] [id number] Transfer to [facility] MR#: [id number] Acct: [id number] Name: OMAR VERA Rep #: [id number] : 1940 78 From: Jr MIRANDA PCP: Care Physician, No Primary Status: ADM IN OMAR VERA (Patient) (Health Ins. Claim No.) (Day of Discharge to Facility) Certification of patient admission REQUIRED AT TIME OF ADMISSION. I CERTIFY THAT [facility] SERVICES ARE REQUIRED TO BE GIVEN ON AN IN-PATIENT BASIS BECAUSE OF THE ABOVE NAMED PATIENT'S NEED FOR SENIOR LIVING CARE ON A CONTINUING BASIS FOR THE CONDITION(S) FOR WHICH HE/SHE WAS RECEIVING IN-PATIENT HOSPITAL SERVICES PRIOR TO HIS/HER TRANSFER TO THE [facility]. 10/04/18 1152 <Electronically signed by Jr MIRANDA> Date Jr MIRANDA - Diet 10/04/18 10:49 Diet: Regular Diet Is pt able to select menu?: No - Routine Orders/Code Status Suppository Type: Dulcolax 10mg Suppository Frequency: Daily PRN Routine Lab Work: CBC - 3 days Code Status: DNC-A - Wound(s) Coccyx Wound Type: Pressure Injury - Therapies Physical Therapy: Eval and Treat Occupational Therapy: Eval and Treat - Problem/Diagnosis (1) Hypovolemic shock Status: Acute Current Visit: Yes (2) GI bleed Status: Acute Comment: gastric mass Current Visit: Yes (3) Acute blood loss anemia Status: Acute Current Visit: Yes (4) Duodenal ulcer Status: Acute Current Visit: Yes (5) Lactic acidosis Status: Acute Current Visit: Yes (6) Syncope Status: Acute Current Visit: Yes (7) Hypertensive urgency Status: Acute Current Visit: Yes (8) Gastric mass Status: Chronic Current Visit: No (9) Bronchiectasis Status: Chronic Current Visit: No (10) Chronic obstructive pulmonary disease Status: Chronic Current Visit: No (11) Diabetes mellitus Status: Chronic Current Visit: No (12) GERD (gastroesophageal reflux disease) Status: Chronic Current Visit: No (13) Hyperlipidemia Status: Chronic Current Visit: No (14) Hypertension Status: Chronic Current Visit: No - Allergies/Procedures Done in Hospital Allergies/Adverse Reactions: Allergies Iodinated Contrast- Oral and IV Dye [CONTRASTS] Adverse Reaction (Verified 09/30/18 16:13) Unknown NSAIDS (Non-Steroidal Anti-Inflamma Adverse Reaction (Verified 09/30/18 16:13) GI bleed Procedures: Blood transfusion, EGD - Type of Care/Length of Stay Estimated LOS: Convalescent Care Less Than 30 days Type of Care Needed: Skilled Rehab Potential: Fair Prognosis: Fair - Additional Orders/Day of Discharge Day of Discharge: 10/04/18 - Dietary and Speech Recommendations Dietitian Recommendations/Changes: Consider parenteral nutrition support if NPO continues with contraindication for PO/enteral nutrition. As medically able, rec diet as tolerated to Transitional/low residue, cardiac, 1800 calorie. - Follow Up Care Primary Care Physician: Care Physician,No Primary [Primary Care Provider] - Please follow up with your Primary Care Physician in: 1-2 weeks Please Follow Up With: Rusty Vargas MD When: 1 week 10/04/18 3342 <Electronically signed by Jr MIRANDA> Date Jr MIRANDA CC: No Primary Care Physician; Jr Meredith MD; Rusty Vargas MD Signed BEDSIDE GLUCOSE Collected: 10/04/2018 Status: F Source: [place] 11:41 AM [facility] REPOSITORY TYPE CODE TESTS RESULT OUT OF REFERENCE UNITS RANGE LAB L501.080 70-110 mg/dL High BEDSIDE GLU 230 Result Comment: MANAGEMENT OF PATIENT CARE PER NURSING PROTOCOL Performed By: #### L501.080 #### [facility] Point of Care [address] [place] [address] BEDSIDE GLUCOSE Collected: 10/04/2018 Status: F Source: [place] 6:54 AM [facility] REPOSITORY TYPE CODE TESTS RESULT OUT OF RANGE REFERENCE UNITS LAB L501.080 70-110 mg/dL Normal BEDSIDE GLU 108 Result Comment: MANAGEMENT OF PATIENT CARE PER NURSING PROTOCOL Performed By: #### L501.080 #### [facility] Point of Care [address] [place], [place] [address] CBC W/DIFF, AUTOMATED Collected: 10/04/2018 Status: F Source: [place] 4:45 AM [facility] REPOSITORY TYPE CODE TESTS RESULT OUT OF RANGE REFERENCE UNITS LAB L100.1000 4.4-11.0 K/mm3 Normal WBC 6.2 LAB L100.1200 4.6-6.2 M/mm3 Low RBC 3.35 LAB L100.1300 13.0-16.5 g/dl Low HGB 9.7 LAB L100.1400 40-54 % Low HCT 30.3 LAB L100.1500 80-94 fL Normal MCV 90.4 LAB L100.1600 27.0-32.0 pg Normal MCH 29.0 LAB L100.1700 32-36 g/gl Normal MCHC 32.0 LAB L100.1810 11.6-14.6 % High RDW CV 16.6 LAB L100.1820 35.1-43.9 fl High RDW SD 53.7 LAB L100.1900 150-450 K/mm3 Normal PLT 160 LAB L100.2000 6.2-12.0 fl Normal MPV 10.3 LAB L100.2100 47-70 % Normal NEUT% 58.6 LAB L100.2200 19-41 % Normal LY% 29.4 LAB L100.2300 0-10 % Normal MONO% 9.4 LAB L100.2400 0-5 % Normal EO% 2.1 LAB L100.2500 0-1 % Normal BASO% 0.2 LAB L100.2550 0.0-0.9 % Normal IM GRAN % 0.300 Result Comment: IG% - Immature Granulocytes (promyelocytes, myelocytes and metamyelocytes) > 1% indicates that a LEFT SHIFT is Present. LAB L100.2620 2.0-7.7 X10 3/uL Normal Absolute Neut 3.6 LAB L100.2720 0.83-4.51 X10 3/ul Normal Absolute Lymph 1.82 Performed By: #### L100.0100 #### [facility] [address] [place], [place], [id number] BEDSIDE GLUCOSE Collected: 10/03/2018 Status: F Source: [place] 9:24 PM [facility] REPOSITORY TYPE CODE TESTS RESULT OUT OF RANGE REFERENCE UNITS LAB L501.080 70-110 mg/dL Normal BEDSIDE GLU 109 Result Comment: MANAGEMENT OF PATIENT CARE PER NURSING PROTOCOL Performed By: #### L501.080 #### [facility] Point of Care [address] [facility] [place], [place] [id number] BEDSIDE GLUCOSE Collected: 10/03/2018 Status: F Source: [place] 4:20 PM [facility] REPOSITORY TYPE CODE TESTS RESULT OUT OF REFERENCE UNITS RANGE LAB L501.080 70-110 mg/dL High BEDSIDE GLU 149 Result Comment: MANAGEMENT OF PATIENT CARE PER NURSING PROTOCOL Performed By: #### L501.080 #### [facility] Point of Care [address] [place], [place] [id number] BEDSIDE GLUCOSE Collected: 10/03/2018 Status: F Source: [place] 11:19 AM [facility] REPOSITORY TYPE CODE TESTS RESULT OUT OF REFERENCE UNITS RANGE LAB L501.080 70-110 mg/dL High BEDSIDE GLU 128 Result Comment: MANAGEMENT OF PATIENT CARE PER NURSING PROTOCOL Performed By: #### L501.080 #### [facility] Point of Care [address] [place], [place] [address] CBC W/DIFF, AUTOMATED Collected: 10/03/2018 Status: F Source: [place] 6:00 AM [facility] REPOSITORY TYPE CODE TESTS RESULT OUT OF RANGE REFERENCE UNITS LAB L100.1000 4.4-11.0 K/mm3 Normal WBC 6.5 LAB L100.1200 4.6-6.2 M/mm3 Low RBC 3.29 LAB L100.1300 13.0-16.5 g/dl Low HGB 9.5 LAB L100.1400 40-54 % Low HCT 29.2 LAB L100.1500 80-94 fL Normal MCV 88.8 LAB L100.1600 27.0-32.0 pg Normal MCH 28.9 LAB L100.1700 32-36 g/gl Normal MCHC 32.5 LAB L100.1810 11.6-14.6 % High RDW CV 16.4 LAB L100.1820 35.1-43.9 fl High RDW SD 52.5 LAB L100.1900 150-450 K/mm3 Low PLT 135 LAB L100.2000 6.2-12.0 fl Normal MPV 9.9 LAB L100.2100 47-70 % Normal NEUT% 66.5 LAB L100.2200 19-41 % Normal LY% 23.8 LAB L100.2300 0-10 % Normal MONO% 7.7 LAB L100.2400 0-5 % Normal EO% 1.5 LAB L100.2500 0-1 % Normal BASO% 0.2 LAB L100.2550 0.0-0.9 % Normal IM GRAN % 0.300 Result Comment: IG% - Immature Granulocytes (promyelocytes, myelocytes and metamyelocytes) > 1% indicates that a LEFT SHIFT is Present. LAB L100.2620 2.0-7.7 X10 3/uL Normal Absolute Neut 4.3 LAB L100.2720 0.83-4.51 X10 3/ul Normal Absolute Lymph 1.55 Performed By: #### L100.0100 #### [facility] [address] [place], [address] BASIC METABOLIC Collected: 10/03/2018 Status: F Source: [place] PROFILE (BMP) 6:00 AM [facility] REPOSITORY TYPE CODE TESTS RESULT OUT OF RANGE REFERENCE UNITS LAB L501.0100 74-106 mg/dL High GLU 129 Result Comment: Fasting Glucose result greater than or equal to 126 mg/dL suggests DIABETES MELLITUS per A.D.A. criteria. Please note revised GLUCOSE reference range effective 2017. LAB L501.1000 7-18 mg/dL Normal BUN 11 LAB L501.1100 0.70-1.30 mg/dL Normal CREAT,SERUM 1.05 Result Comment: The validity of the calculated GFR AND GFRAA in patients over 70 years has not been determined. Clinical correlation is essential. LAB L501.1110 >60 mL/min Normal EST GFR 72 Result Comment: Non- GFR Calc LAB L501.1115 >60 mL/min Normal EST GFR - AA 88 Result Comment: GFR Calc LAB L501.1255 ml/min Normal Estimated CRCL 49.14 LAB L501.1300 10-20 RATIO Normal BUN/CRE 10.5 LAB L501.2200 8.5-10 mg/dL Low .1 CA 7.5 LAB L501.5300 136-14 mmol/L Normal 5 NA 142 LAB L501.5600 3.5-5. mmol/L Low 1 K 3.1 LAB L501.5900 98-107 mmol/L High CL 109 LAB L501.6100 21.0-3 mmol/L Normal 2.0 CO2 25.0 LAB L501.6200 5-15 Normal GAP 8 Performed By: #### L500.2500 #### [facility] [address] [place], [place], [address] BEDSIDE GLUCOSE Collected: 10/03/2018 Status: F Source: [place] 5:13 AM [facility] REPOSITORY TYPE CODE TESTS RESULT OUT OF REFERENCE UNITS RANGE LAB L501.080 70-110 mg/dL High BEDSIDE GLU 120 Result Comment: MANAGEMENT OF PATIENT CARE PER NURSING PROTOCOL Performed By: #### L501.080 #### [facility] Point of Care [address] [place], [place] [address] BEDSIDE GLUCOSE Collected: 10/03/2018 Status: F Source: [place] 12:26 AM [facility] REPOSITORY TYPE CODE TESTS RESULT OUT OF REFERENCE UNITS RANGE LAB L501.080 70-110 mg/dL High BEDSIDE GLU 135 Result Comment: MANAGEMENT OF PATIENT CARE PER NURSING PROTOCOL Performed By: #### L501.080 #### [facility] Point of Care [address] [place] [address] BEDSIDE GLUCOSE Collected: 10/02/2018 Status: F Source: [place] 6:16 PM [facility] REPOSITORY TYPE CODE TESTS RESULT OUT OF REFERENCE UNITS RANGE LAB L501.080 70-110 mg/dL High BEDSIDE GLU 115 Result Comment: MANAGEMENT OF PATIENT CARE PER NURSING PROTOCOL Performed By: #### L501.080 #### [facility] Point of Care [address] [place] [address] BEDSIDE GLUCOSE Collected: 10/02/2018 Status: F Source: [place] 11:21 AM [facility] REPOSITORY TYPE CODE TESTS RESULT OUT OF RANGE REFERENCE UNITS LAB L501.080 70-110 mg/dL Normal BEDSIDE GLU 100 Result Comment: MANAGEMENT OF PATIENT CARE PER NURSING PROTOCOL Performed By: #### L501.080 #### [facility] Point of Care [address] [place] [address] BASIC METABOLIC Collected: 10/02/2018 Status: F Source: [place] PROFILE (BMP) 6:00 AM [facility] REPOSITORY Order Comment: LINE DRAW TYPE CODE TESTS RESULT OUT OF RANGE REFERENCE UNITS LAB L501.0100 74-106 mg/dL Normal GLU 103 Result Comment: Fasting Glucose result from 100 to 125 mg/dL suggests IMPAIRED HOMEOSTASIS per A.D.A. criteria. Please note revised GLUCOSE reference range effective 2017. LAB L501.1000 7-18 mg/dL High BUN 25 LAB L501.1100 0.70-1.30 mg/dL Normal CREAT,SERUM 0.89 Result Comment: The validity of the calculated GFR AND GFRAA in patients over 70 years has not been determined. Clinical correlation is essential. LAB L501.1110 >60 mL/min Normal EST GFR 88 Result Comment: Non- GFR Calc LAB L501.1115 >60 mL/min Normal EST GFR - AA 106 Result Comment: GFR Calc LAB L501.1255 ml/min Normal Estimated CRCL 62.92 LAB L501.1300 10-20 RATIO High BUN/CRE 28.1 LAB L501.2200 8.5-10 mg/dL Low .1 CA 7.5 LAB L501.5300 136-14 mmol/L Normal 5 NA 144 LAB L501.5600 3.5-5. mmol/L Normal 1 K 3.5 LAB L501.5900 98-107 mmol/L High CL 112 LAB L501.6100 21.0-3 mmol/L Normal 2.0 CO2 25.0 LAB L501.6200 5-15 Normal GAP 7 Performed By: #### L500.2500, L501.2300, L501.5200 #### [facility] [address] [place], [address] PHOSPHORUS Collected: 10/02/2018 Status: F Source: [place] 6:00 AM [facility] REPOSITORY Order Comment: LINE DRAW TYPE CODE TESTS RESULT OUT OF RANGE REFERENCE UNITS LAB L501.2300 2.5-4.9 mg/dL Low PHOS 2.2 Performed By: #### L500.2500, L501.2300, L501.5200 #### [facility] [address] [place], [place], [address] MAGNESIUM Collected: 10/02/2018 Status: F Source: [place] 6:00 AM [facility] REPOSITORY Order Comment: LINE DRAW TYPE CODE TESTS RESULT OUT OF RANGE REFERENCE UNITS LAB L501.5200 1.6-2.6 mg/dL Normal MG 1.9 Performed By: #### L500.2500, L501.2300, L501.5200 #### [facility] [address] [place], [address] CBC W/DIFF, AUTOMATED Collected: 10/02/2018 Status: F Source: [place] 6:00 AM [facility] REPOSITORY Order Comment: LINE DRAW TYPE CODE TESTS RESULT OUT OF RANGE REFERENCE UNITS LAB L100.1000 4.4-11.0 K/mm3 Normal WBC 8.1 LAB L100.1200 4.6-6.2 M/mm3 Low RBC 3.14 LAB L100.1300 13.0-16.5 g/dl Low HGB 9.1 LAB L100.1400 40-54 % Low HCT 27.8 LAB L100.1500 80-94 fL Normal MCV 88.5 LAB L100.1600 27.0-32.0 pg Normal MCH 29.0 LAB L100.1700 32-36 g/gl Normal MCHC 32.7 LAB L100.1810 11.6-14.6 % High RDW CV 17.1 LAB L100.1820 35.1-43.9 fl High RDW SD 54.1 LAB L100.1900 150-450 K/mm3 Low PLT 117 LAB L100.2000 6.2-12.0 fl Normal MPV 9.6 LAB L100.2100 47-70 % High NEUT% 74.2 LAB L100.2200 19-41 % Normal LY% 19.1 LAB L100.2300 0-10 % Normal MONO% 5.4 LAB L100.2400 0-5 % Normal EO% 1.0 LAB L100.2500 0-1 % Normal BASO% 0.1 LAB L100.2550 0.0-0.9 % Normal IM GRAN % 0.200 Result Comment: IG% - Immature Granulocytes (promyelocytes, myelocytes and metamyelocytes) > 1% indicates that a LEFT SHIFT is Present. LAB L100.2620 2.0-7.7 X10 3/uL Normal Absolute Neut 6.0 LAB L100.2720 0.83-4.51 X10 3/ul Normal Absolute Lymph 1.55 Performed By: #### L100.0100 #### [facility] [address] [facility] [place], [address] CONSULTATION Observed: 10/02/2018 Status: F Source: [place] 5:51 AM [facility] REPOSITORY [facility] Medical Records Department [address] [place] [address] Consultation 10/01/18 0659 MR#: [id number] Acct: [id number] Name: OMAR VERA Rep #: [id number] : 1940 78 From: Jr Meredith MD PCP: Care Physician, No Primary Status: ADM IN Y Location: ICU ICU04-1 Problem List (1) Debility Status: Acute (2) Multiple falls Status: Acute (3) Chronic obstructive pulmonary disease Status: Chronic (4) Bronchiectasis Status: Chronic (5) Gastric mass Status: Acute (6) Diabetes mellitus Status: Chronic (7) Hypertension Status: Chronic (8) Hyperlipidemia Status: Chronic (9) GERD (gastroesophageal reflux disease) Status: Chronic (10) Hypovolemic shock Status: Acute Reason for Consult Date of Consultation: 10/01/18 Reason for Consultation: Hemorrhagic shock History of Present Illness: The patient is a 78 year old M, with past medical history listed below, who presented to [facility] on 09/30/2018 secondary to black stools. Patient reportedly had recently been admitted to [facility] for healthcare acquired pneumonia and was transferred to the TCU in August. Patient started to have black stools with a drop in hemoglobin and complained of not feeling well. Patient did not have any complaints of pain, respiratory distress, nausea or vomiting. On presentation to the ER, patient was noted to have a blood pressure of 98/50 with a heart rate of 104 and appeared pale. Buccal mucosa were reported as dry. Laboratory workup showed a drop in hemoglobin by over 2 g with an elevation of BUN to 63. Patient reportedly had a known gastric mass, but declined EGD and biopsy previously. Patient's lactate was noted to be 3.1, so patient was transferred to the intensive care unit for monitoring. Patient does have a central line and arterial line in place. Overnight, patient had 2 large bloody bowel movements. Surgery was informed and patient eventually had an emergent EGD overnight requiring injection of epinephrine and cautery. Operative note was reviewed. Patient has received a total of 4 units of packed red blood cells, 2 units of FFP and 1 of platelets thus far overnight. Patient has not had any respiratory issues, but hypertension was noted following EGD. Patient has responded well to labetalol. This morning, patient is intermittently confused. Patient continues to deny any pain, but states he does have discomfort from the Fowler. Patient has not had any hematemesis and denies any nausea. No abdominal pain has been noted. Patient has had bowel movement since EGD, but these are reportedly darker and more formed than previous. Patient not cooperative with a more expansive review of systems at this time. Past Medical History Past Medical History (Chronic Problems): Chronic Problems Chronic obstructive pulmonary disease (Chronic) Bronchiectasis (Chronic) Diabetes mellitus (Chronic) Hypertension (Chronic) Hyperlipidemia (Chronic) GERD (gastroesophageal reflux disease) (Chronic) Allergies Iodinated Contrast- Oral and IV Dye [CONTRASTS] Adverse Reaction (Verified 09/30/18 16:13) Unknown NSAIDS (Non-Steroidal Anti-Inflamma Adverse Reaction (Verified 09/30/18 16:13) GI bleed Home Medications: Ambulatory Orders Medication Instructions Recorded Ipratropium/Albuterol Sulfate 3 ml INHALATION Q2H PRN PRN 09/20/18 [Duoneb] Losartan Potassium [Cozaar] 50 mg PO DAILY 09/20/18 Metformin HCl 500 mg PO DAILY 09/20/18 Surgical History: - - Left heart cath, EGD with cauterization gastric ulcer. Psychiatric History: No pertinent psych hx Smoking Status: Former smoker Tobacco Use: Non-smoker - *Family History Maternal History Items: No pertinent history Paternal History Items: No pertinent history Review of Systems Comment: See HPI Patient Problems: Active and Suspected Problems Acute blood loss anemia (Acute) GI bleed (Acute) gastric mass SPIKE (acute kidney injury) (Acute) Lactic acidosis (Acute) Syncope (Acute) Hypovolemic shock (Acute) Objective: Chest x-ray shows a right subclavian central line and a minimal left-sided effusion. No echocardiogram is available for review. - Physical Exam General: Alert, Cooperative, No apparent distress, Disoriented, - - No conversational dyspnea. HEENT: Atraumatic, PERRLA, EOMI, Normocephalic, - - No scleral icterus or injection noted. Oral: Moist Mucosa, No Gingival or Mucosal Lesions/ Ulcerations Neck: Supple, No JVD, No Nodes, Trachea Midline Lungs: Clear to auscultation, Normal air movement, No rhonchi, No wheeze, No rales, - - Central line is clean, dry and intact. Cardiovascular: Normal S1, Normal S2, No murmurs, No rub noted, No Gallop, Tachycardic Abdomen: Bowel Sounds Present, Soft, Non Tender, Distended - Slightly Extremities: No clubbing, No cyanosis, No edema, Capillary Refill Less than 3 Seconds Skin: No rashes, No breakdown Musculoskeletal: No Tenderness to Palpation of Joints or Extremities Lymphatic: No Cervical, Supraclavicular, or Inguinal Adenopathy Neurological: Cranial nerves II-XII grossly intact, Neuro grossly intact, Motor Exam 5/5 strength throughout Psych/Mental Status: Agitated, Restless Vital Signs Temp Pulse Resp BP Pulse Ox 36.4 C L 79 18 169/57 H 98 10/01/18 06:55 10/01/18 06:55 10/01/18 06:55 10/01/18 06:55 10/01/18 06:55 Oxygen Flow Rate (L/min) 2 Oxygen Delivery Method Room Air Weight: 62.9 kg Body Mass Index (BMI) 23.5 Intake and Output for Last 24 Hours Intake Total 1600 / 1600 2841 / 2841 Output Total 1000 / 1000 Balance 1600 / 1600 1841 / 1841 Laboratory Tests Past 24 Hrs WBC RBC Hgb Hct MCV MCH MCHC RDW RDW Differential WBC RBC Hgb Hct MCV MCH MCHC RDW WBC 9.3 RBC 3.43 L Hgb 9.9 L Hct 30.1 L MCV 87.8 MCH 28.9 MCHC 32.9 RDW 16.2 H RDW Differential 51.2 H WBC Pending RBC Pending Hgb Pending Hct Pending MCV Pending MCH Pending MCHC Pending POC Glucose POC Glucose 160 H Clinical Impression(s) from Imaging Studies Chest X-Ray 09/30/18 23:00 IMPRESSION: Right central venous line in a grossly satisfactory position. Left pleural effusion, cannot exclude associated left basilar atelectasis and/or pneumonia. Persistent right basilar opacity may be secondary to underlying atelectasis and/or pneumonia. Electronically Signed: Herminia Daley MD at 23:19 EST Tel , Service support , Assessment/Plan Active and Suspected Problems Acute blood loss anemia (Acute) GI bleed (Acute) gastric mass SPIKE (acute kidney injury) (Acute) Lactic acidosis (Acute) Syncope (Acute) Hypovolemic shock (Acute) RECOMMENDATIONS: 1. Continue to monitor H AND H every 6 2. Labetalol and hydralazine as needed for hypertension 3. Await pathology for prognostication 4. Potential need for repeat endoscopy 5. Monitor in ICU for at least 24 hours given visible vessel 6. Continue PPI drip IMPRESSIONS: 1. Acute blood loss anemia secondary to duodenal ulcer and probable gastric cancer Patient has received 4 units of packed red blood cells, 2 units of FFP and 1 unit of platelets overnight. Patient did have a visible vessel with intervention overnight. Will need to monitor in the intensive care unit for at least 24 hours. Continue with H AND H every 6 hours. Transfuse to keep hemoglobin greater than 8 given high likelihood of repeat bleed. Cannot rule out the potential for a repeat endoscopy. Will await pathology results for prognostication. Patient does have reported abdominal adenopathy, so metastatic disease is likely. 2. Hemorrhagic shock secondary to upper GI bleed Patient with elevated lactate and bump in creatinine associated with active GI bleed. Patient has been resuscitated at this time. Hemoglobin is in acceptable range. We will continue to monitor closely. Urine output has remained stable. 3. Hypertensive urgency Patient's blood pressure was elevated following EGD. Unclear if this is secondary to epinephrine versus stability of active blood loss with endogenous endorphins. Patient has responded well to labetalol therapy. We will continue to keep blood pressures less than 160. If patient starts bleeding, this may be tightened further. 4. Recent syncope Clinical suspicion for a vasovagal episode associated with active upper GI bleed. We will continue to monitor. No focal neurologic deficits appreciated at this time. 5. Diabetes mellitus type 2/acute kidney injury/lactic acidosis/advanced age/hypernatremia/hyperchloremia Complicates care, management, recovery and prognosis. Patient has received significant volume resuscitation with normal saline and this likely accounts for the hypernatremia and hyperchloremia. Will transition over to lactated Ringer's Code Visit Inpatient E AND M: [id number] Init Hosp L3 10/02/18 0551 <Electronically signed by Jr Meredith MD> Date Jr Meredith MD Cosigner Signature (if applicable): Date CC: No Primary Care Physician; Jr Meredith MD; Rusty Vargas MD Signed BEDSIDE GLUCOSE Collected: 10/02/2018 Status: F Source: [place] 12:49 AM [facility] REPOSITORY TYPE CODE TESTS RESULT OUT OF RANGE REFERENCE UNITS LAB L501.080 70-110 mg/dL Normal BEDSIDE GLU 87 Result Comment: MANAGEMENT OF PATIENT CARE PER NURSING PROTOCOL Performed By: #### L501.080 #### [facility] Point of Care [address] [place] [address] BEDSIDE GLUCOSE Collected: 10/01/2018 Status: F Source: [place] 11:49 PM [facility] REPOSITORY TYPE CODE TESTS RESULT OUT OF RANGE REFERENCE UNITS LAB L501.080 70-110 mg/dL Normal BEDSIDE GLU 77 Result Comment: MANAGEMENT OF PATIENT CARE PER NURSING PROTOCOL Performed By: #### L501.080 #### [facility] Point of Care [address] [place] [address] BEDSIDE GLUCOSE Collected: 10/01/2018 Status: F Source: [place] 4:41 PM [facility] REPOSITORY TYPE CODE TESTS RESULT OUT OF RANGE REFERENCE UNITS LAB L501.080 70-110 mg/dL Normal BEDSIDE GLU 87 Result Comment: MANAGEMENT OF PATIENT CARE PER NURSING PROTOCOL Performed By: #### L501.080 #### [facility] Point of Care [address] [place] [address] HH, HEMOGLOBIN AND Collected: 10/01/2018 Status: F Source: [place] HEMATOCRIT 4:30 PM [facility] REPOSITORY TYPE CODE TESTS RESULT OUT OF RANGE REFERENCE UNITS LAB L100.1300 13.0-16.5 g/dl Low HGB 9.5 LAB L100.1400 40-54 % Low HCT 29.3 Performed By: #### L100.0600 #### [facility] [address] [place], [address] BEDSIDE GLUCOSE Collected: 10/01/2018 Status: F Source: [place] 12:04 PM [facility] REPOSITORY TYPE CODE TESTS RESULT OUT OF RANGE REFERENCE UNITS LAB L501.080 70-110 mg/dL Normal BEDSIDE GLU 96 Result Comment: MANAGEMENT OF PATIENT CARE PER NURSING PROTOCOL Performed By: #### L501.080 #### [facility] Point of Care [address] [place] [address] HH, HEMOGLOBIN AND Collected: 10/01/2018 Status: F Source: [place] HEMATOCRIT 11:45 AM [facility] REPOSITORY TYPE CODE TESTS RESULT OUT OF RANGE REFERENCE UNITS LAB L100.1300 13.0-16.5 g/dl Low HGB 9.2 LAB L100.1400 40-54 % Low HCT 28.2 Performed By: #### L100.0600 #### [facility] [address] [place], [place], [id number] CBC W/DIFF, AUTOMATED Collected: 10/01/2018 Status: F Source: [place] 6:00 AM [facility] REPOSITORY TYPE CODE TESTS RESULT OUT OF RANGE REFERENCE UNITS LAB L100.1000 4.4-11.0 K/mm3 High WBC 14.3 LAB L100.1200 4.6-6.2 M/mm3 Low RBC 3.54 LAB L100.1300 13.0-16.5 g/dl Low HGB 10.2 LAB L100.1400 40-54 % Low HCT 31.1 LAB L100.1500 80-94 fL Normal MCV 87.9 LAB L100.1600 27.0-32.0 pg Normal MCH 28.8 LAB L100.1700 32-36 g/gl Normal MCHC 32.8 LAB L100.1810 11.6-14.6 % High RDW CV 16.7 LAB L100.1820 35.1-43.9 fl High RDW SD 50.7 LAB L100.1900 150-450 K/mm3 Low PLT 108 LAB L100.2000 6.2-12.0 fl Normal MPV 10.5 LAB L100.2100 47-70 % Normal NEUT% 69.4 LAB L100.2200 19-41 % Normal LY% 24.7 LAB L100.2300 0-10 % Normal MONO% 5.2 LAB L100.2400 0-5 % Normal EO% 0.3 LAB L100.2500 0-1 % Normal BASO% 0.1 LAB L100.2550 0.0-0.9 % Normal IM GRAN % 0.300 Result Comment: IG% - Immature Granulocytes (promyelocytes, myelocytes and metamyelocytes) > 1% indicates that a LEFT SHIFT is Present. LAB L100.2620 2.0-7.7 X10 3/uL High Absolute Neut 9.9 LAB L100.2720 0.83-4.51 X10 3/ul Normal Absolute Lymph 3.53 Performed By: #### L100.0100 #### [facility] [address] [place], [address] BEDSIDE GLUCOSE Collected: 10/01/2018 Status: F Source: [place] 5:57 AM [facility] REPOSITORY TYPE CODE TESTS RESULT OUT OF RANGE REFERENCE UNITS LAB L501.080 70-110 mg/dL Normal BEDSIDE GLU 110 Result Comment: MANAGEMENT OF PATIENT CARE PER NURSING PROTOCOL Performed By: #### L501.080 #### [facility] Point of Care [address] [place] [address] OPERATIVE REPORT - Observed: 10/01/2018 Status: F Source: [place] ENDOSCOPY 3:30 AM [facility] REPOSITORY [facility] Medical Records Department [address] [place] [address] Operative Report - Endoscopy MR#: [id number] Acct: [id number] Name: OMAR VERA Rep #: [id number] : 1940 78 From: Rusty Vargas MD PCP: Care Physician, No Primary Status: ADM IN Patient Name: Omar Vera Procedure Date: 10/01/2018 2:15 AM Date of : 1940 Age: 78 Procedure: Upper GI endoscopy Indications: Hematochezia, Active gastrointestinal bleeding Providers: Rusty Vargas MD Medicines: See the Anesthesia note for documentation of the administered medications Patient Profile: This is a 78 year old male. Refer to note in patient chart for documentation of history and physical. Complications: No immediate complications. Procedure: Pre-Anesthesia Assessment: - Prior to the procedure, a History and Physical was performed, and patient medications and allergies were reviewed. The patient's tolerance of previous anesthesia was also reviewed. The risks and benefits of the procedure and the sedation options and risks were discussed with the patient. All questions were answered, and informed consent was obtained. Prior Anticoagulants: The patient has taken no previous anticoagulant or antiplatelet agents. ASA Grade Assessment: IV - A patient with severe systemic disease that is a constant threat to life. After reviewing the risks and benefits, the patient was deemed in satisfactory condition to undergo the procedure. After obtaining informed consent, the endoscope was passed under direct vision. Throughout the procedure, the patient's blood pressure, pulse, and oxygen saturations were monitored continuously. The gastroscope was introduced through the mouth, and advanced to the second part of duodenum. The upper GI endoscopy was accomplished without difficulty. The patient tolerated the procedure well. Scope In: 2:22:40 AM Scope Out: 2:48:28 AM Total Procedure Duration Time 0 hours 25 minutes 48 seconds Findings: The examined esophagus was normal. A large, fungating, non-circumferential mass with no bleeding and no stigmata of recent bleeding was found at the incisura. Biopsies were taken with a cold forceps for histology. After the biopsies I used the argon beam wheelchair rental clerk for hemostasis. Once this was done I also injected it with 4 cc of epinephrine. Good hemostasis was achieved. Area was successfully injected with 4 mL of a 1:10,000 solution of epinephrine for hemostasis. One non-bleeding cratered duodenal ulcer with a visible vessel was found in the duodenal bulb. The lesion was 20 mm in largest dimension. Area was successfully injected with 4 mL of a 1:10,000 solution of epinephrine for hemostasis. I made a decision not to use the argon beam wheelchair rental clerk nor place a clip on this vessel that was not actively bleeding. I thought injection of epinephrine was enough and was frightened that I could cause more bleeding by doing those 2 other maneuvers. In addition since his platelets had gone down from 190-92 and I was not going to be able to get platelets for 4 hours I thought the most prudent thing to do was only inject the epinephrine.Since I did not see any blood within the stomach nor the duodenum I think the most likely source of his bleeding was from the duodenal ulcer and not the gastric mass. Impression: - Normal esophagus. 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 Biopsied. - One non-bleeding duodenal ulcer with a visible vessel. Injected. Recommendation: - Return patient to ICU for ongoing care. - Clear liquid diet. - Use Protonix (pantoprazole) 80 mg IV daily. - Continue present medications. Procedure Code(s): --- Professional --- 90504, 59, Esophagogastroduodenoscopy, flexible, transoral; with control of bleeding, any method 53071, Esophagogastroduodenoscopy, flexible, transoral; with biopsy, single or multiple Diagnosis Code(s): --- Professional --- C16.8, 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of overlapping sites of stomach K26.4, Chronic or unspecified duodenal ulcer with hemorrhage K92.1, Melena (includes Hematochezia) K92.2, Gastrointestinal hemorrhage, unspecified CPT copyright 2017 [employer]. All rights reserved. The codes documented in this report are preliminary and upon environmental remediation consultant review may be revised to meet current compliance requirements. MD Rusty Wasserman MD 10/01/2018 3:30:23 AM This report has been signed electronically. Number of Addenda: 0 Note Initiated On: 10/01/2018 2:15 AM 10/01/18329 Date Rusty Vargas MD Cosigner Signature: Date (if indicated) CC: No Primary Care Physician; Jr Meredith MD; Rusty Vargas MD; Elvis Caballero DO Date Dictated: 10/01/18214 Date Transcribed: Entry Level Paralegal: LAMBERT Signed PROTHROMBIN TIME W/INR Collected: 10/01/2018 Status: F Source: [place] 1:25 AM [facility] REPOSITORY TYPE CODE TESTS RESULT OUT OF RANGE REFERENCE UNITS LAB L300.4150 11.7-14.9 SECONDS High PROTIME 15.1 LAB L300.4200 Normal INR 1.2 Performed By: #### L300.3900, L300.4310 #### [facility] [address] [place], [place], [id number] PARTIAL THROMBOPLAST Collected: 10/01/2018 Status: F Source: [place] TIME 1:25 AM [facility] REPOSITORY TYPE CODE TESTS RESULT OUT OF RANGE REFERENCE UNITS LAB L300.4310 24.1-36.2 Seconds Normal PTT 32.0 Performed By: #### L300.3900, L300.4310 #### [facility] [address] [place], [address] BASIC METABOLIC Collected: 10/01/2018 Status: F Source: [place] PROFILE (BMP) 1:25 AM [facility] REPOSITORY TYPE CODE TESTS RESULT OUT OF RANGE REFERENCE UNITS LAB L501.0100 74-106 mg/dL High GLU 174 Result Comment: Fasting Glucose result greater than or equal to 126 mg/dL suggests DIABETES MELLITUS per A.D.A. criteria. Please note revised GLUCOSE reference range effective 2017. LAB L501.1000 7-18 mg/dL High BUN 66 LAB L501.1100 0.70-1.30 mg/dL Normal CREAT,SERUM 1.08 Result Comment: The validity of the calculated GFR AND GFRAA in patients over 70 years has not been determined. Clinical correlation is essential. LAB L501.1110 >60 mL/min Normal EST GFR 70 Result Comment: Non- GFR Calc LAB L501.1115 >60 mL/min Normal EST GFR - AA 85 Result Comment: GFR Calc LAB L501.1255 ml/min Normal Estimated CRCL 51.85 LAB L501.1300 10-20 RATIO High BUN/CRE 61.1 LAB L501.2200 8.5-10 mg/dL Low .1 CA 7.3 LAB L501.5300 136-14 mmol/L High 5 NA 149 LAB L501.5600 3.5-5. mmol/L Normal 1 K 4.3 LAB L501.5900 98-107 mmol/L High CL 117 LAB L501.6100 21.0-3 mmol/L Normal 2.0 CO2 24.0 LAB L501.6200 5-15 Normal GAP 8 Performed By: #### L500.2500 #### [facility] [address] [place], [address] CBC W/DIFF, AUTOMATED Collected: 10/01/2018 Status: F Source: [place] 1:25 AM [facility] REPOSITORY TYPE CODE TESTS RESULT OUT OF RANGE REFERENCE UNITS LAB L100.1000 4.4-11.0 K/mm3 Normal WBC 9.3 LAB L100.1200 4.6-6.2 M/mm3 Low RBC 3.43 LAB L100.1300 13.0-16.5 g/dl Low HGB 9.9 LAB L100.1400 40-54 % Low HCT 30.1 LAB L100.1500 80-94 fL Normal MCV 87.8 LAB L100.1600 27.0-32.0 pg Normal MCH 28.9 LAB L100.1700 32-36 g/gl Normal MCHC 32.9 LAB L100.1810 11.6-14.6 % High RDW CV 16.2 LAB L100.1820 35.1-43.9 fl High RDW SD 51.2 LAB L100.1900 150-450 K/mm3 Low PLT 92 LAB L100.2000 6.2-12.0 fl Normal MPV 9.4 LAB L100.2100 47-70 % Normal NEUT% 69.9 LAB L100.2200 19-41 % Normal LY% 23.4 LAB L100.2300 0-10 % Normal MONO% 5.9 LAB L100.2400 0-5 % Normal EO% 0.1 LAB L100.2500 0-1 % Normal BASO% 0.2 LAB L100.2550 0.0-0.9 % Normal IM GRAN % 0.500 Result Comment: IG% - Immature Granulocytes (promyelocytes, myelocytes and metamyelocytes) > 1% indicates that a LEFT SHIFT is Present. LAB L100.2620 2.0-7.7 X10 3/uL Normal Absolute Neut 6.5 LAB L100.2720 0.83-4.51 X10 3/ul Normal Absolute Lymph 2.18 LAB L100.4500 SMEAR Normal COMMENT SCANNED LAB L100.4700 Normal REACTIVE LYMPH RARE LAB L100.5500 ADEQ PLT Normal EST MOD DEC LAB L100.7200 VIGNESH Normal CELLS RARE LAB L100.7300 ANISO Normal 1+ LAB L100.8200 Normal OVALOCYTE RARE Performed By: #### L100.0100 #### [facility] [address] [place], [place], [id number] GASTRIC BIOPSY Observed: 10/01/2018 Status: F Source: [place] 12:00 AM [facility] REPOSITORY Patient: OMAR VERA : 1940 (78/M) Acct Num: [id number] Phys: David Kim DO Unit Num: [id number] Loc: [facility] [id number] Specimen: [id number] Received: 10/01/18899 Spec Type: Gastric Bx TISSUES 1 TISSUES: Gastric mucous membrane ADDENDUM Addendum Number 1 This case was reviewed and diagnosis discussed with Dr. Vargas on 10/05/[address] Hendrickson. This case was reviewed and diagnosis discussed with Dr. Ling on 10/06/[address] Terry. Addendum Signed Fernando Terry, DO <signature on file> COMMENT Immunohistochemistry ([id number]) supports the above diagnosis. No microsatellite instability noted. The tumor cells show a high-proliferation index (Ki67 staining in the tumor cells is greater than 90%). Mitotic figures vary from 4 to 7 per high power field. The tumor cells are medium to large in size and contain prominent nucleoli. Focal single cell necrosis is noted. The tumor appears to be present in a fractured, lobulated mass. Single infiltrative tumor cells are not identified. No obvious vascular invasion is seen. Mucin and Alcian blue/PAS stains with matched controls are negative. Case has been reviewed in consultation with Dr. Hendrickson who concurs with the above diagnosis. IDC:SJ GROSS DESCRIPTION Received in fixative is one container labeled with the patient's name and designated gastric mass biopsy. The specimen consists of multiple irregular fragments of light cuenca soft tissue that in aggregate measure 0.6 x 0.6 x 0.1 cm. The specimen is totally submitted in one cassette. / AM:jessica 10/01/18 TC:0 CPT: 28883, 32270 x2 HEADER OPERATION: [place] PRE[place]OP DIAGNOSIS: GI bleed TISSUE SUBMITTED: Biopsy of gastric mass MICROSCOPIC DESCRIPTION Slides are reviewed. MICROSCOPIC DIAGNOSIS Gastric mass, biopsy: High grade neuroendocrine carcinoma. See Comment. AM:jessica 10/05/18 Signed Fernando Terry, DO 10/05/18 <signature on file> Performed By: #### PGASB #### [facility] [address] [place], [address] IMMUNOHISTOCHEMISTRY Observed: 10/01/2018 Status: F Source: [place] 12:00 AM [facility] REPOSITORY Patient: OMAR VERA : 1940 (78/M) Acct Num: [id number] Phys: David Kim DO Unit Num: [id number] Loc: [facility] [id number] Specimen: [id number] Received: 10/04/181026 Spec Type: IMMUNO TISSUES 1 TISSUES: Stomach, NOS SPECIMEN INFORMATION: Tissue Source: Biopsy of gastric mass Clinical Info: GI bleed Specimen Number: [id number] CPT code: 24885, 96843 x20 METHODOLOGY: Deparaffinized sections of prefer/formalin-fixed tissue or PAP/DQ stained slides are incubated with monoclonal/polyclonal antibodies/oligonucleotide probes. Localization is made via biotin free immunoperoxidase method. Appropriate controls are performed and reacted as expected. Results on target cell population are indicated in the following table: RESULTS: ANTIBODY / CLONE RESULT CK8 (71roguH49) positive CK20 (KS20.8) negative CK7 (OV-TL12/30) negative RCC (PN-15) negative H Pylori (polyclonal) negative CDX2 ([id number]) positive CD56 (123C3.D5) positive NSE Neuron Specific Enolase positive Chromo (LK2H10) positive Synapto (polyclonal) positive TTF-1 (8G7G3/1) negative Napsin A (Rabbit Polyclonal) negative HepPar (OCh1E5) positive MLH1 (M1) positive MSH2 (25D12) positive MSH6 (44) positive PMS2 (GNJ0863) positive Ki-67 (30-9) positive, (>90%) P53 (DO-7) positive, ((>50%) LINDA-2 (SP21) positive, focal Her-2neu (CB11) negative These tests were developed and their performance characteristics determined by [facility]. They may not have been cleared or approved by the U.S. Food and Drug Administration. The FDA has determined that such clearance or approval is not necessary. INTERPRETATION: Gastric mass, biopsy: Consistent with high-grade neuroendocrine carcinoma. Result of Microsatellite Instability Study: Negative (no loss of mismatch protein; no microsatellite instability detected). Case has been reviewed in consultation with Dr. Hendrickson who concurs with the above diagnosis. IDC:JACOB AM:jessica 10/05/18 [facility] [address] [address] Signed Fernando Terry, 10/05/18 <signature on file> Performed By: #### PIMM #### [facility] [address] [place] [address]. [place], [place], [address] CXR FOR LINE PLACEMENT Observed: 09/30/2018 Status: F Source: [place] 10:45 PM [facility] REPOSITORY [facility] Imaging Services [address] [place] [address] CXR for Line Placement MR#: [id number] Acct: [id number] Name: OMAR VERA Rep #: [id number] : 1940 M 78 From: Herminia Daley MD PCP: Care Physician, No Primary Status: ADM IN Study: CXR for Line Placement Date of Exam: 09/30/18 Exam# [id number] Ordering Dr: Rusty Vargas MD STUDY: X-RAY CHEST REASON FOR EXAM: Male, 78 years old. Central line placement. TECHNIQUE: Single frontal view of the chest. COMPARISON: September 22, 2018 FINDINGS: There is a persistent left pleural effusion. There is a persistent left basilar patchy opacity. There is a possibility of lung markings within the upper lungs may be secondary to underlying emphysema. There is a new right central line in place terminating within the expected region of the superior vena cava. Normal size heart. Normal mediastinum and yoselyn. Normal visualized pulmonary arteries. Normal visualized aortic arch and descending thoracic aorta. There are diffuse degenerative changes of the visualized thoracic spine. Normal visualized ribs, clavicles, and shoulders. There is no demonstrated abnormality of the visualized soft tissue structures of the upper abdomen. RAD/CXR for Line Placement IMPRESSION: Right central venous line in a grossly satisfactory position. Left pleural effusion, cannot exclude associated left basilar atelectasis and/or pneumonia. Persistent right basilar opacity may be secondary to underlying atelectasis and/or pneumonia. Electronically Signed: Herminia Daley MD at 23:19 EST Tel , Service support , CC: No Primary Care Physician; Rusty Vargas MD Entry Level Paralegal: Signed BLOOD GASES BY CPS Collected: 09/30/2018 Status: F Source: [place] 9:33 PM [facility] REPOSITORY TYPE CODE TESTS RESULT OUT OF RANGE REFERENCE UNITS LAB L9000.9990 Normal BLD GAS TYPE ART LAB L9001.1000 Normal SITE R Radial LAB L9001.1010 Normal ALMA TEST POS LAB L9001.1050 O2 Normal Delivery Dev Nasal Can LAB L9001.1055 /min Normal LPM 2.0 LAB L9001.1104 Normal Results To ICU LAB L9001.1105 Normal Time Given 2140 LAB L9001.1110 7.35-7.45 pH Normal - I-STAT 7.43 LAB L9001.1210 35-45 mmHg Low pCO2 - ISTAT 30.9 LAB L9001.1310 75-100 mmHG High PO2 I-STAT 119 LAB L9001.2300 22-26 mmol/L Low HCO3 ISTAT 20.7 LAB L9001.2400 -2 to +2 mmol/L Low BE ISTAT -4 LAB L9001.2415 mmol/L Normal TOTAL CO2 22 ISTAT LAB L9001.2425 95-99 % Normal SO2 ISTAT 99 Performed By: #### L9000.0800 #### [facility] Point of Care [address] [place] [address] DISCHARGE SUMMARY Observed: 09/30/2018 Status: F Source: [place] 8:55 PM [facility] REPOSITORY [facility] Medical Records Department [address] [place] [address] Discharge Summary 09/30/182050 MR#: [id number] Acct: [id number] Name: OMAR VERA Rep #: [id number] : 1940 78 From: Dion Cruz MD PCP: Status: DIS IN Y Location: [place] [address] Discharge Date and Diagnosis - Problem List Patient Problems: Active and Suspected Problems Acute blood loss anemia (Acute) GI bleed (Acute) gastric mass SPIKE (acute kidney injury) (Acute) Lactic acidosis (Acute) Syncope (Acute) Date of Admission: 09/20/18 Date of Discharge: 09/30/18 - Primary Discharge Diagnosis Active and Suspected Problems Acute blood loss anemia (Acute) GI bleed (Acute) gastric mass SPIKE (acute kidney injury) (Acute) Lactic acidosis (Acute) Syncope (Acute) - Secondary Discharge Diagnosis Chronic Problems Chronic obstructive pulmonary disease (Chronic) Bronchiectasis (Chronic) Diabetes mellitus (Chronic) Hypertension (Chronic) Hyperlipidemia (Chronic) GERD (gastroesophageal reflux disease) (Chronic) Hospital Course and Treatment Imaging Results: Clinical Impression(s) from Imaging Studies Chest X-Ray 09/22/18 02:50 IMPRESSION: Lungs are well expanded. There are bibasilar infiltrates greater on the LEFT. There is a small LEFT pleural effusion. There is NO pneumothorax. There is no demonstrated pleural abnormality. Normal size heart. Electronically Signed: Grupo Riley MD at 7:52 EST , Service support , Labs (Last 48 Hours) WBC 11.7 H RBC 3.16 L Hgb 9.6 L Hct 30.7 L MCV 97.2 H MCH 30.4 MCHC 31.3 L RDW 15.1 H RDW Differential 51.0 H Operations: None Procedures: None Summary of Care Provided: The patient is a 78 year old Male with below past medical history hospitalized for sepsis, secondary to healthcare associated pneumonia, complicated by gastric mass with gastrohepatic lymphadenopathy, but patient declined evaluation, admitted to TCU with debility, here for rehabilitation, strengthening, prior to disposition determination. 09/30/2018 Resident became unresponsive, had large bowel movement of melanotic stool, Hemoglobin trending down. Discharge to [facility] for evaluation, admission to hospital. If gastric cancer confirmed by biopsy, recommend discharge to [facility] with Hospice. Resident spouse unable to care for him at home. Patient Problems: Active and Suspected Problems Acute blood loss anemia (Acute) GI bleed (Acute) gastric mass SPIKE (acute kidney injury) (Acute) Lactic acidosis (Acute) Syncope (Acute) - Physical Exam Vital Signs Temp Pulse Resp BP Pulse Ox 97.8 F 113 H 18 103/53 L 99 09/30/18 15:11 09/30/18 15:11 09/30/18 15:11 09/30/18 15:11 09/30/18 15:11 Oxygen Flow Rate (L/min) 2 Oxygen Delivery Method Nasal Cannula Weight: 59.109 kg Body Mass Index (BMI) 22.3 Intake and Output for Last 24 Hours Intake Total 360 / 360 600 / 600 360 / 360 Balance 360 / 360 600 / 600 360 / 360 Laboratory Tests Past 24 Hrs WBC 11.7 H RBC 3.16 L Hgb 9.6 L Hct 30.7 L MCV 97.2 H MCH 30.4 MCHC 31.3 L RDW 15.1 H POC Glucose POC Glucose 227 H 179 H Discharge Diet: No Restrictions Discharge Activity: Return to Normal Activity, Use Walker Weight Bearing Status: Weight bearing as tolerated Call your doctor if you observe: Fever of 101 or Higher, Inability to urinate, Inability to have a bowel movement, Shortness of breath, Chest pain, Uncontrolled pain Home Medications: Medications to take at Discharge Ipratropium/Albuterol Sulfate [Duoneb] 3 ml INHALATION Q2H PRN PRN 09/20/18 Losartan Potassium [Cozaar] 50 mg PO DAILY 09/20/18 Metformin HCl 500 mg PO DAILY 09/20/18 Metoprolol(XL)Succ [Toprol Xl (Beta Radha)] 50 mg PO DAILY 09/20/18 Pantoprazole Sodium [Protonix] 40 mg PO DAILY 09/20/18 Prednisone See Taper PO DAILY 09/20/18 Acetaminophen [Tylenol Extra Strength] 500 mg PO Q6H PRN PRN 09/30/18 Albuterol Aerosols [Ventolin Aerosols] 2.5 mg INHALATION Q2H PRN PRN 09/30/18 Bisacodyl [Dulcolax] 10 mg PO Q6H PRN PRN 09/30/18 Enoxaparin Sodium [Lovenox] 30 mg SQ DAILY 09/30/18 Menthol/Lanolin/Calamine/Znox [Calmoseptine Ointment] 1 applic TOPICAL BID 09/30/18 Mineral Oil/Petrolatum,White [Eucerin] 1 applic TOPICAL DAILY PRN PRN 09/30/18 Mirtazapine [Remeron] 7.5 mg PO QHS 09/30/18 Polyethylene Glycol 3350 [Miralax] 17 gm PO DAILY 09/30/18 Tamsulosin HCl 0.4 mg PO DAILY 09/30/18 Disposition: [facility] Minutes spent on discharge:: 30 Patient Condition:: Poor Medical Necessity - Tobacco Use Smoking Status: Former smoker - 30 pack year smoking history. Tobacco Use: Non-smoker Meaningful Use Info Meaningful Use Diagnoses (Choose all that apply): None applicable 09/30/182054 <Electronically signed by Dion Cruz MD> Date Dion Cruz MD Cosigner Signature (if applicable): Date CC: Dion Cruz MD Signed DISCHARGE INSTRUCTION Observed: 09/30/2018 Status: F Source: [place] 8:51 PM [facility] REPOSITORY [facility] Medical Records Department [address] [facility] [address] Instructions for Home/Discharge Instructions 09/30/182049 MR#: [id number] Acct: [id number] Name: OMAR VERA Rigoberto Rep #: [id number] : 1940 78 From: Dion Cruz MD PCP: Status: DIS IN - Discharge Diagnoses Current Active Problems: Current Active and Chronic Problems Acute blood loss anemia (Acute) GI bleed (Acute) gastric mass SPIKE (acute kidney injury) (Acute) Lactic acidosis (Acute) Syncope (Acute) You will use the following diet at home:: No restrictions, Regular Your food should be the consistency of: Regular Your liquids should be the consistency of: Regular/Thin Discharge Activity: Return to Normal Activity, Use Walker Weight Bearing Status: Weight bearing as tolerated Call your doctor if you observe: Fever of 101 or Higher, Inability to urinate, Inability to have a bowel movement, Shortness of breath, Chest pain, Uncontrolled pain Allergies/Adverse Reactions: Allergies Iodinated Contrast- Oral and IV Dye [CONTRASTS] Adverse Reaction (Verified 09/30/18 16:13) Unknown NSAIDS (Non-Steroidal Anti-Inflamma Adverse Reaction (Verified 09/30/18 16:13) GI bleed Medications to take at Discharge Ipratropium/Albuterol Sulfate [Duoneb] 3 ml INHALATION Q2H PRN PRN 09/20/18 Losartan Potassium [Cozaar] 50 mg PO DAILY 09/20/18 Metformin HCl 500 mg PO DAILY 09/20/18 Metoprolol(XL)Succ [Toprol Xl (Beta Rahda)] 50 mg PO DAILY 09/20/18 Pantoprazole Sodium [Protonix] 40 mg PO DAILY 09/20/18 Prednisone See Taper PO DAILY 09/20/18 Acetaminophen [Tylenol Extra Strength] 500 mg PO Q6H PRN PRN 09/30/18 Albuterol Aerosols [Ventolin Aerosols] 2.5 mg INHALATION Q2H PRN PRN 09/30/18 Bisacodyl [Dulcolax] 10 mg PO Q6H PRN PRN 09/30/18 Enoxaparin Sodium [Lovenox] 30 mg SQ DAILY 09/30/18 Menthol/Lanolin/Calamine/Znox [Calmoseptine Ointment] 1 applic TOPICAL BID 09/30/18 Mineral Oil/Petrolatum,White [Eucerin] 1 applic TOPICAL DAILY PRN PRN 09/30/18 Mirtazapine [Remeron] 7.5 mg PO QHS 09/30/18 Polyethylene Glycol 3350 [Miralax] 17 gm PO DAILY 09/30/18 Tamsulosin HCl 0.4 mg PO DAILY 09/30/18 Test Results: Test results from this visit will be discussed in further detail at your follow-up appointment, if applicable. Proposed Discharge Date: 09/30/18 09/30/182050 <Electronically signed by Dion Cruz MD> Date Dion Cruz MD CC: Signed BEDSIDE GLUCOSE Collected: 09/30/2018 Status: F Source: [place] 8:22 PM [facility] REPOSITORY TYPE CODE TESTS RESULT OUT OF REFERENCE UNITS RANGE LAB L501.080 70-110 mg/dL High BEDSIDE GLU 160 Result Comment: MANAGEMENT OF PATIENT CARE PER NURSING PROTOCOL Performed By: #### L501.080 #### [facility] Point of Care [address] [place] [address] LACTIC ACID Collected: 09/30/2018 Status: F Source: [place] 6:50 PM [facility] REPOSITORY Order Comment: Yes/No query for Sepsis Lactate Rule Y TYPE CODE TESTS RESULT OUT OF REFERENCE UNITS RANGE LAB L503.6005 0.4-2.0 mmol/L High LACTIC ACID 2.4 Result Comment: Critical Result(s) Called E.CHAVEZ at: 19:27:10 09/30/2018 by: BREONNA VALENTINE Performed By: #### L503.6005 #### [facility] [address] [place], [address] HISTORY AND PHYSICAL Observed: 09/30/2018 Status: F Source: [place] EXAM 5:53 PM [facility] REPOSITORY [facility] Medical Records Department [address] [facility] [place] [address] History and Physical 09/30/18 1741 MR#: [id number] Acct: [id number] Name: OMAR VERA Rep #: [id number] : 1940 78 From: Elvis Caballero DO PCP: Care Physician, No Primary Status: ADM IN Y Location: ICU ICU04-1 Problem List (1) Acute blood loss anemia Status: Acute (2) GI bleed Status: Acute (3) SPIKE (acute kidney injury) Status: Acute (4) Lactic acidosis Status: Acute (5) Syncope Status: Acute History of Present Illness Date of Admission: 09/30/18 Chief Complaint: melena The patient is a 78 year old M who has been in the transitional care unit since September 20. Previously, patient was at [facility] with pneumonia. Patient has CT imaging of his chest but cut the upper part of his abdomen that showed a mass in his stomach. His recommend that he undergo an EGD, however the patient declined given his tenuous respiratory status at that time. Is no note of any bleeding at that time. Patient was transferred over to the transitional care unit here [facility]. Today, patient had a syncopal episode when he was on the commode. Patient eventually did came to and did receive IV fluids but was noted to have melena and sent to the emergency room. In the emergency room, patient received IV fluids, he had a lactic acid of 3.1. General surgery, with Dr. Vargas, was contacted and the plan is for an EGD on the at around noon. Discussed with Dr. Vera, the patient's daughter, who stated that her mother told her and the patient has been having some bleeding prior to this as well. Patient does have a remote history of EGD that did require cauterization in the past. [] Past Medical History Past Medical History (Chronic Problems): Chronic Problems Chronic obstructive pulmonary disease (Chronic) Bronchiectasis (Chronic) Diabetes mellitus (Chronic) Hypertension (Chronic) Hyperlipidemia (Chronic) GERD (gastroesophageal reflux disease) (Chronic) Allergies Iodinated Contrast- Oral and IV Dye [CONTRASTS] Adverse Reaction (Verified 09/30/18 16:13) Unknown NSAIDS (Non-Steroidal Anti-Inflamma Adverse Reaction (Verified 09/30/18 16:13) GI bleed Home Medications: Ambulatory Orders Medication Instructions Recorded Ipratropium/Albuterol Sulfate 3 ml INHALATION Q2H PRN PRN 09/20/18 [Duoneb] Losartan Potassium [Cozaar] 75 mg PO DAILY 09/20/18 Surgical History: no surgical history, - - Left heart cath, EGD with cauterization gastric ulcer. Psychiatric History: No pertinent psych hx Smoking Status: Former smoker Tobacco Use: Non-smoker - *Family History Maternal History Items: No pertinent history Paternal History Items: No pertinent history Review of Systems Constitutional: Reports: Malaise. Denies: Anorexia, Chills, Fever, Weakness Eyes: Denies: Blurred vision, Double vision HEENT: Reports: Difficulty Hearing Cardiovascular: Denies: Chest Pain, Palpitations Respiratory: Denies: Cough, Shortness of breath at rest, Sputum production Gastrointestinal: Reports: Abdominal Pain, Nausea, Melena. Denies: Hematochezia Genitourinary: Denies: Dysuria Musculoskeletal: Denies: Joint Pain, Joint Tenderness Skin: Denies: Rash, Wounds Neurological: Reports: - - Syncope today. Denies: Focal weakness, Numbness, Tingling Psychiatric: Denies: Anxiety, Depression Hematologic/ Lymphatic: Reports: Easy Bleeding Comment: A 10 point review of systems were negative except as mentioned in the history of present illness and the other review of systems. VTE Information - Inpt Only VTE Present on Admission: No VTE Mechan Device Prophylaxis: SCD's VTE Pharm Prophylaxis ordered?: No Reason prophylaxis not ordered:: Medical Contraindication Patient Problems: Active and Suspected Problems Debility (Acute) Multiple falls (Acute) Healthcare-associated pneumonia (Acute) Urinary tract infection (Acute) Gastric mass (Acute) Intra-abdominal lymphadenopathy (Acute) Acute blood loss anemia (Acute) GI bleed (Acute) SPIKE (acute kidney injury) (Acute) Lactic acidosis (Acute) Syncope (Acute) - Physical Exam General: Alert, Cooperative, No apparent distress, - - Heart of hearing. Afebrile. Pale complexion. HEENT: Atraumatic, Normocephalic Oral: Moist Mucosa, No Gingival or Mucosal Lesions/ Ulcerations Neck: No Nodes, Thyroid Normal Size and Texture Lungs: Clear to auscultation, Normal air movement, No rhonchi, No wheeze Cardiovascular: Regular rate, Regular Rhythm, Normal S1, Normal S2, No murmurs Abdomen: Bowel Sounds Present, Soft, Non Tender, Non-Distended, No Hepato-splenomegaly Extremities: No edema, No Calf Tenderness Skin: No rashes, No breakdown Musculoskeletal: No Tenderness to Palpation of Joints or Extremities, No Muscle Wasting Neurological: Motor Exam 5/5 strength throughout, - - No clonus Psych/Mental Status: Appropriate, Flat Affect Vital Signs Temp Pulse Resp BP Pulse Ox 36.9 C 104 H 16 98/58 L 100 09/30/18 16:11 09/30/18 16:11 09/30/18 16:11 09/30/18 16:11 09/30/18 16:11 Oxygen Flow Rate (L/min) 2 Oxygen Delivery Method Nasal Cannula Weight: 66.4 kg Body Mass Index (BMI) 22.9 Laboratory Tests Past 24 Hrs PT 15.1 H INR 1.2 APTT 30.9 Lactic Acid 3.1 H Blood Type Pending Antibody Screen Pending Assessment/Plan All Active Problems Debility (Acute) Multiple falls (Acute) Healthcare-associated pneumonia (Acute) Urinary tract infection (Acute) Gastric mass (Acute) Intra-abdominal lymphadenopathy (Acute) Acute blood loss anemia (Acute) GI bleed (Acute) SPIKE (acute kidney injury) (Acute) Lactic acidosis (Acute) Syncope (Acute) 1. Acute blood loss anemia Hemoglobin in 1 day is gone from 11.4-9.6. Given the patient's current appearance, I think that 9.6 is an over estimation of his actual hemoglobin. Patient be transfused 1 unit of packed red blood cells and will cycle his H AND H every 6 hours Secondary to GI bleed 2. GI bleed Source not yet identified, but could be related with PUD or this gastric mass, which I think is most likely culprit Patient be started on IV Protonix Plan is for an EGD on the roughly around noon. Discussed with Dr. Vargas 3. Acute kidney injury Likely prerenal Creatinine went from 1.13-1.42 today IV fluids and monitor 4. Syncope Occurred earlier today Likely vasovagal due to the above issues Continue IVF 5. Diabetes mellitus type II Hold metformin as patient is n.p.o. and may be complicating the patient's lactic acidosis Sliding scale insulin every 6 hours for now while he is n.p.o. 6. Lactic acidosis Secondary to acute blood loss anemia, renal failure and also metformin Currently, hemodynamically stable, therefore will qualify this is a hemorrhagic cyst shock at this time 7. DVT prophylaxis with SCDs. Chemical prophylaxis contraindicated in light of the acute hemorrhage 8. Advanced care planning: Discussed with Dr. Vera, patient is DNR Comfort Care arrest, however, for the EGD that will be rescinded but to be resumed afterwards. Code Visit Inpatient E AND M: 19855 Init Hosp L3 09/30/18 0513 <Electronically signed by Elvis Caballero DO> Date Elvis Caballero DO Cosigner Signature: Date (if applicable) CC: No Primary Care Physician; Elvis Caballero DO Signed EMERGENCY DEPARTMENT Observed: 09/30/2018 Status: F Source: [place] SUMMARY 5:20 PM [facility] REPOSITORY [facility] Medical Records Department [address] [place] [address] Emergency Department Summary 09/30/18 1623 MR#: [id number] Acct: [id number] Name: OMAR VERA Rep #: [id number] : 1940 78 From: Alex Crespo MD PCP: Care Physician, No Primary Status: REG ER - ER Visit Summary Date of Service: 09/30/18 Chief Complaint: Black stool History of Present Illness: The patient is a 78 M with multiple medical problems who was recently admitted at [facility] for healthcare acquired pneumonia who was admitted to TCU in August. He presents because of black stool and drop in hemoglobin. She reports not feeling well. He has no other complaints. He denied cardiac or respiratory symptoms. He denies abdominal pain or vomiting. He denies decreased urine output. He does complain of weakness.. Physical Examination: Vital signs noted and remarkable for a blood pressure of 98/50 and heart rate of 104. He appears pale. Conjunctive is pale. Tongue and buccal mucosa are dry. TMs normal. Sclerae anicteric. Lungs are clear with slightly diminished breath sounds. Heart is rapid and regular. Abdomen is soft nontender. Stool sample brought from TCU is black sticky and has odor of blood. He moves all extremities. Hemoglobin on September 28 was 11.4 and hemoglobin today is 9.6. BUN is increased to 63. Reviewing TCU admission note indicates patient had a gastric mass he declined EGD/biopsy. Oncology was consulted however since there is no tissue biopsy they are unable to provide any assistance or care. Test Results: Coags are normal. Lactate is elevated at 3.1. Emergency Department Course and Treatment: Coags were obtained and patient was typed and screened. Lactate was obtained since he is tachycardic and hyper hypotensive. Will need to discuss CODE STATUS and this will determine proper unit placement. Treatment Plan: 500 cc bolus of normal saline, type and screen and consult for EGD to determine site of bleeding. Dr. Shanna Vera spoke with her father. A medical orders for life-sustaining treatment was completed. He has no CPR, no intubation, no defibrillation and no cardioversion. If he has a respiratory arrest during EGD or colonoscopy he is requesting resuscitation. Placement of central line is acceptable. Disposition: Admit ICU Impression: 1. Hemorrhagic shock secondary to GI bleed 2. Acute anemia secondary to GI bleed 3. History of 2.4 x 2.6 gastric mass lesser curvature This note was generated with [employer] dictation software. It may contain incorrect words, spelling, and punctuation that were not noted in review of the chart prior to signing ED Disposition - Plan for ED Patient: Chief Complaint: Weakness What to do if you have Problems For any increased pain, shortness of breath, bleeding, nausea or vomiting, chest pain, or any unexpected problems, contact your Primary Care Provider. Call [facility] ([phone]) or report to the closest Emergency Room. Call 911 if necessary. 09/30/18 1720 <Electronically signed by Alex Crespo MD> Date Alex Crespo MD Cosigner Signature (If Indicated): Date CC: No Primary Care Physician; Rusty Vargas MD PROTHROMBIN TIME W/INR Collected: 09/30/2018 Status: F Source: [place] 4:20 PM [facility] REPOSITORY TYPE CODE TESTS RESULT OUT OF RANGE REFERENCE UNITS LAB L300.4150 11.7-14.9 SECONDS High PROTIME 15.1 LAB L300.4200 Normal INR 1.2 Performed By: #### L300.3900, L300.4310 #### [facility] [address] [place], [address] PARTIAL THROMBOPLAST Collected: 09/30/2018 Status: F Source: [place] TIME 4:20 PM [facility] REPOSITORY TYPE CODE TESTS RESULT OUT OF RANGE REFERENCE UNITS LAB L300.4310 24.1-36.2 Seconds Normal PTT 30.9 Performed By: #### L300.3900, L300.4310 #### [facility] [address] [place], [address] LACTIC ACID Collected: 09/30/2018 Status: F Source: [place] 4:20 PM [facility] REPOSITORY Order Comment: Yes/No query for Sepsis Lactate Rule Y TYPE CODE TESTS RESULT OUT OF REFERENCE UNITS RANGE LAB L503.6005 0.4-2.0 mmol/L High LACTIC ACID 3.1 Result Comment: Critical Result(s) Called Darvin KAT at: 17:03:50 09/30/2018 by: BREONNA VALENTINE Performed By: #### L503.6005 #### [facility] [address] [place], [address] TYPE AND SCREEN Collected: 09/30/2018 Status: F Source: [place] 4:20 PM [facility] REPOSITORY Order Comment: Reason for Type AND Screen/Red Cells: HEMORRHAGE, GI BLEED TYPE CODE TESTS RESULT OUT OF RANGE REFERENCE UNITS LAB B10.0800 O Normal BLOOD TYPE GEL POSITIVE LAB B100.4000 Normal Antibody NEGATIVE Screen Performed By: #### B101.7450 #### [facility] [address] [place], [address] RC Collected: 09/30/2018 Status: F Source: [place] 4:20 PM [facility] REPOSITORY TYPE CODE TESTS RESULT OUT OF REFERENCE UNITS RANGE LAB U100.0000 [id number] TRANSFUSED PRODUCT: T AND S with Crossmatch, Red Cells COUNT: 2 Performed By: #### U100.0000 #### [facility] - refer to report for specific site RC Collected: 09/30/2018 Status: F Source: [place] 4:20 PM [facility] REPOSITORY TYPE CODE TESTS RESULT OUT OF REFERENCE UNITS RANGE LAB U100.0000 [id number] TRANSFUSED PRODUCT: T AND S with Crossmatch, Red Cells COUNT: 2 Performed By: #### U100.0000 #### [facility] - refer to report for specific site FFP Collected: 09/30/2018 Status: F Source: [place] 4:20 PM [facility] REPOSITORY TYPE CODE TESTS RESULT OUT OF REFERENCE UNITS RANGE LAB U100.0900 [id number] TRANSFUSED PRODUCT: Fresh Frozen Plasma COUNT: 2 Performed By: #### U100.0900 #### [facility] - refer to report for specific site CBC W/DIFF, AUTOMATED Collected: 09/30/2018 Status: F Source: [place] 2:08 PM [facility] REPOSITORY TYPE CODE TESTS RESULT OUT OF RANGE REFERENCE UNITS LAB L100.1000 4.4-11.0 K/mm3 High WBC 11.7 LAB L100.1200 4.6-6.2 M/mm3 Low RBC 3.16 LAB L100.1300 13.0-16.5 g/dl Low HGB 9.6 LAB L100.1400 40-54 % Low HCT 30.7 LAB L100.1500 80-94 fL High MCV 97.2 LAB L100.1600 27.0-32.0 pg Normal MCH 30.4 LAB L100.1700 32-36 g/gl Low MCHC 31.3 LAB L100.1810 11.6-14.6 % High RDW CV 15.1 LAB L100.1820 35.1-43.9 fl High RDW SD 51.0 LAB L100.1900 150-450 K/mm3 Normal PLT 199 LAB L100.2000 6.2-12.0 fl Normal MPV 10.1 LAB L100.2100 47-70 % Normal NEUT% 62.7 LAB L100.2200 19-41 % Normal LY% 30.7 LAB L100.2300 0-10 % Normal MONO% 5.6 LAB L100.2400 0-5 % Normal EO% 0.3 LAB L100.2500 0-1 % Normal BASO% 0.3 LAB L100.2550 0.0-0.9 % Normal IM GRAN % 0.400 Result Comment: IG% - Immature Granulocytes (promyelocytes, myelocytes and metamyelocytes) > 1% indicates that a LEFT SHIFT is Present. LAB L100.2620 2.0-7.7 X10 3/uL Normal Absolute Neut 7.3 LAB L100.2720 0.83-4.51 X10 3/ul Normal Absolute Lymph 3.59 Performed By: #### L100.0100, L500.2500 #### [facility] [address] [place], [address] BASIC METABOLIC Collected: 09/30/2018 Status: F Source: [place] PROFILE (BMP) 2:08 PM [facility] REPOSITORY TYPE CODE TESTS RESULT OUT OF RANGE REFERENCE UNITS LAB L501.0100 74-106 mg/dL High GLU 230 Result Comment: Glucose result greater than or equal to 200 mg/dL suggests DIABETES MELLITUS per A.D.A. criteria. Please note revised GLUCOSE reference range effective 2017. LAB L501.1000 7-18 mg/dL High BUN 63 LAB L501.1100 0.70-1.30 mg/dL High CREAT,SERUM 1.42 Result Comment: The validity of the calculated GFR AND GFRAA in patients over 70 years has not been determined. Clinical correlation is essential. LAB L501.1110 >60 mL/min Low EST GFR 51 Result Comment: Non- GFR Calc LAB L501.1115 >60 mL/min Normal EST GFR - AA 62 Result Comment: GFR Calc LAB L501.1255 ml/min Normal Estimated CRCL 35.27 LAB L501.1300 10-20 RATIO High BUN/CRE 44.4 LAB L501.2200 8.5-10 mg/dL Low .1 CA 8.2 LAB L501.5300 136-14 mmol/L Normal 5 NA 145 LAB L501.5600 3.5-5. mmol/L Normal 1 K 4.5 LAB L501.5900 98-107 mmol/L High CL 112 LAB L501.6100 21.0-3 mmol/L Normal 2.0 CO2 25.0 LAB L501.6200 5-15 Normal GAP 8 Performed By: #### L100.0100, L500.2500 #### [facility] [address] [place], [address] BEDSIDE GLUCOSE Collected: 09/30/2018 Status: F Source: [place] 1:44 PM [facility] REPOSITORY TYPE CODE TESTS RESULT OUT OF REFERENCE UNITS RANGE LAB L501.080 70-110 mg/dL High BEDSIDE GLU 227 Result Comment: MANAGEMENT OF PATIENT CARE PER NURSING PROTOCOL Performed By: #### L501.080 #### [facility] Point of Care [address] [place] [address] PPHR Collected: 09/30/2018 Status: F Source: [place] 11:20 AM [facility] REPOSITORY TYPE CODE TESTS RESULT OUT OF REFERENCE UNITS RANGE LAB U100.0700 [id number] TRANSFUSED PRODUCT: Platelets Apheresis PPHR LR SD COUNT: 1 Performed By: #### U100.0700 #### [facility] - refer to report for specific site BEDSIDE GLUCOSE Collected: 09/30/2018 Status: F Source: [place] 6:28 AM [facility] REPOSITORY TYPE CODE TESTS RESULT OUT OF REFERENCE UNITS RANGE LAB L501.080 70-110 mg/dL High BEDSIDE GLU 179 Result Comment: MANAGEMENT OF PATIENT CARE PER NURSING PROTOCOL Performed By: #### L501.080 #### [facility] Point of Care [address] [place] [address] BEDSIDE GLUCOSE Collected: 09/29/2018 Status: F Source: [place] 7:03 AM [facility] REPOSITORY TYPE CODE TESTS RESULT OUT OF REFERENCE UNITS RANGE LAB L501.080 70-110 mg/dL High BEDSIDE GLU 151 Result Comment: MANAGEMENT OF PATIENT CARE PER NURSING PROTOCOL Performed By: #### L501.080 #### [facility] Point of Care [address] [place] [address] BEDSIDE GLUCOSE Collected: 09/28/2018 Status: F Source: [place] 6:26 AM [facility] REPOSITORY TYPE CODE TESTS RESULT OUT OF RANGE REFERENCE UNITS LAB L501.080 70-110 mg/dL Normal BEDSIDE GLU 108 Result Comment: MANAGEMENT OF PATIENT CARE PER NURSING PROTOCOL Performed By: #### L501.080 #### [facility] Point of Care [address] [place] [address] BASIC METABOLIC Collected: 09/28/2018 Status: F Source: [place] PROFILE (BMP) 5:20 AM [facility] REPOSITORY TYPE CODE TESTS RESULT OUT OF RANGE REFERENCE UNITS LAB L501.0100 74-106 mg/dL High GLU 110 Result Comment: Fasting Glucose result from 100 to 125 mg/dL suggests IMPAIRED HOMEOSTASIS per A.D.A. criteria. Please note revised GLUCOSE reference range effective 2017. LAB L501.1000 7-18 mg/dL High BUN 39 LAB L501.1100 0.70-1.30 mg/dL Normal CREAT,SERUM 1.13 Result Comment: The validity of the calculated GFR AND GFRAA in patients over 70 years has not been determined. Clinical correlation is essential. LAB L501.1110 >60 mL/min Normal EST GFR 67 Result Comment: Non- GFR Calc LAB L501.1115 >60 mL/min Normal EST GFR - AA 80 Result Comment: GFR Calc LAB L501.1255 ml/min Normal Estimated CRCL 46.42 LAB L501.1300 10-20 RATIO High BUN/CRE 34.5 LAB L501.2200 8.5-10 mg/dL Low .1 CA 8.4 LAB L501.5300 136-14 mmol/L Normal 5 NA 144 LAB L501.5600 3.5-5. mmol/L Normal 1 K 3.8 LAB L501.5900 98-107 mmol/L High CL 108 LAB L501.6100 21.0-3 mmol/L Normal 2.0 CO2 28.0 LAB L501.6200 5-15 Normal GAP 8 Performed By: #### L500.2500 #### [facility] [address] [place], [address] CBC W/DIFF, AUTOMATED Collected: 09/28/2018 Status: F Source: [place] 5:20 AM [facility] REPOSITORY TYPE CODE TESTS RESULT OUT OF RANGE REFERENCE UNITS LAB L100.1000 4.4-11.0 K/mm3 Normal WBC 7.7 LAB L100.1200 4.6-6.2 M/mm3 Low RBC 3.85 LAB L100.1300 13.0-16.5 g/dl Low HGB 11.4 LAB L100.1400 40-54 % Low HCT 36.1 LAB L100.1500 80-94 fL Normal MCV 93.8 LAB L100.1600 27.0-32.0 pg Normal MCH 29.6 LAB L100.1700 32-36 g/gl Low MCHC 31.6 LAB L100.1810 11.6-14.6 % High RDW CV 14.7 LAB L100.1820 35.1-43.9 fl High RDW SD 48.2 LAB L100.1900 150-450 K/mm3 Normal PLT 198 LAB L100.2000 6.2-12.0 fl Normal MPV 10.6 LAB L100.2100 47-70 % Normal NEUT% 60.0 LAB L100.2200 19-41 % Normal LY% 30.5 LAB L100.2300 0-10 % Normal MONO% 7.7 LAB L100.2400 0-5 % Normal EO% 1.0 LAB L100.2500 0-1 % Normal BASO% 0.4 LAB L100.2550 0.0-0.9 % Normal IM GRAN % 0.400 Result Comment: IG% - Immature Granulocytes (promyelocytes, myelocytes and metamyelocytes) > 1% indicates that a LEFT SHIFT is Present. LAB L100.2620 2.0-7.7 X10 3/uL Normal Absolute Neut 4.6 LAB L100.2720 0.83-4.51 X10 3/ul Normal Absolute Lymph 2.34 Performed By: #### L100.0100 #### [facility] [address] [facility] [id number] BEDSIDE GLUCOSE Collected: 09/27/2018 Status: F Source: [place] 6:24 AM [facility] REPOSITORY TYPE CODE TESTS RESULT OUT OF REFERENCE UNITS RANGE LAB L501.080 70-110 mg/dL High BEDSIDE GLU 114 Result Comment: MANAGEMENT OF PATIENT CARE PER NURSING PROTOCOL Performed By: #### L501.080 #### [facility] Point of Care [address] [facility] [place], [place] [id number] BEDSIDE GLUCOSE Collected: 09/26/2018 Status: F Source: [place] 6:34 AM [facility] REPOSITORY TYPE CODE TESTS RESULT OUT OF REFERENCE UNITS RANGE LAB L501.080 70-110 mg/dL High BEDSIDE GLU 147 Result Comment: MANAGEMENT OF PATIENT CARE PER NURSING PROTOCOL Performed By: #### L501.080 #### [facility] Point of Care [address] [facility] [place] [address] BEDSIDE GLUCOSE Collected: 09/25/2018 Status: F Source: [place] 6:19 AM [facility] REPOSITORY TYPE CODE TESTS RESULT OUT OF REFERENCE UNITS RANGE LAB L501.080 70-110 mg/dL High BEDSIDE GLU 124 Result Comment: MANAGEMENT OF PATIENT CARE PER NURSING PROTOCOL Performed By: #### L501.080 #### [facility] Point of Care [address] [place] [address] BEDSIDE GLUCOSE Collected: 09/24/2018 Status: F Source: [place] 6:06 AM [facility] REPOSITORY TYPE CODE TESTS RESULT OUT OF REFERENCE UNITS RANGE LAB L501.080 70-110 mg/dL High BEDSIDE GLU 115 Result Comment: MANAGEMENT OF PATIENT CARE PER NURSING PROTOCOL Performed By: #### L501.080 #### [facility] Point of Care [address] [place] [address] BEDSIDE GLUCOSE Collected: 09/23/2018 Status: F Source: [place] 3:01 PM [facility] REPOSITORY TYPE CODE TESTS RESULT OUT OF REFERENCE UNITS RANGE LAB L501.080 70-110 mg/dL High BEDSIDE GLU 226 Result Comment: MANAGEMENT OF PATIENT CARE PER NURSING PROTOCOL Performed By: #### L501.080 #### [facility] Point of Care [address] [place] [address] BEDSIDE GLUCOSE Collected: 09/23/2018 Status: F Source: [place] 6:16 AM [facility] REPOSITORY TYPE CODE TESTS RESULT OUT OF REFERENCE UNITS RANGE LAB L501.080 70-110 mg/dL High BEDSIDE GLU 143 Result Comment: MANAGEMENT OF PATIENT CARE PER NURSING PROTOCOL Performed By: #### L501.080 #### [facility] Point of Care [address] [place] [address] BEDSIDE GLUCOSE Collected: 09/22/2018 Status: F Source: [place] 6:24 AM [facility] REPOSITORY TYPE CODE TESTS RESULT OUT OF REFERENCE UNITS RANGE LAB L501.080 70-110 mg/dL High BEDSIDE GLU 126 Result Comment: MANAGEMENT OF PATIENT CARE PER NURSING PROTOCOL Performed By: #### L501.080 #### [facility] Point of Care [address] [place] [address] CHEST PA AND LATERAL Observed: 09/22/2018 Status: F Source: [place] 2:03 AM [facility] REPOSITORY [facility] Imaging Services [address] [place] [address] Chest PA and Lateral MR#: [id number] Acct: [id number] Name: OMAR VERA Rep #: [id number] : 1940 M 78 From: Grupo Riley PCP: Status: ADM IN Study: Chest PA and Lateral Date of Exam: 09/22/18 Exam# [id number] Ordering Dr: Dion Cruz MD STUDY: X-RAY CHEST REASON FOR EXAM: Male, 78 years old. Cough TECHNIQUE: PA and lateral COMPARISON: None. FINDINGS: Lungs are well expanded. There are bibasilar infiltrates greater on the LEFT. There is a small LEFT pleural effusion. There is NO pneumothorax. Normal size heart. Normal mediastinum and yoselyn. Normal visualized pulmonary arteries. Normal visualized aortic arch and descending thoracic aorta. Normal visualized thoracic spine. Normal visualized ribs, clavicles, and shoulders. There is no demonstrated abnormality of the visualized soft tissue structures of the upper abdomen. RAD/Chest PA and Lateral IMPRESSION: Lungs are well expanded. There are bibasilar infiltrates greater on the LEFT. There is a small LEFT pleural effusion. There is NO pneumothorax. There is no demonstrated pleural abnormality. Normal size heart. Electronically Signed: Grupo Riley MD at 7:52 EST , Service support , CC: Dion Cruz MD Entry Level Paralegal: Signed HISTORY AND PHYSICAL Observed: 09/21/2018 Status: F Source: [place] EXAM 3:41 PM [facility] REPOSITORY [facility] Medical Records Department [address] [place] [address] History and Physical 09/20/18 2153 MR#: [id number] Acct: [id number] Name: OMAR VERA Rep #: [id number] : 1940 78 From: Dion Cruz MD PCP: Status: ADM IN Y Location: [facility] TCU19-1 ADDENDUM by Dion Cruz MD on 09/21/18 at 1541 Code Visit Appetite decrease/insomnia - Stop Melatonin, Start Mirtazapine 7.5MG at bedtime. 09/21/18 1541 <Electronically signed by Dion Cruz MD> Date Dion Cruz MD cc: Dion Cruz MD * Signed ADDENDUM by Dion Cruz MD on 09/20/18 at 2217 Code Visit Insomnia - Melatonin 3MG QHS PRN. 09/20/182216 <Electronically signed by Dion Cruz MD> Date Dion Cruz MD cc: Dion Cruz MD * Signed Problem List (1) Debility Status: Acute (2) Multiple falls Status: Acute (3) Healthcare-associated pneumonia Status: Acute (4) Urinary tract infection Status: Acute (5) Chronic obstructive pulmonary disease Status: Chronic (6) Bronchiectasis Status: Chronic (7) Gastric mass Status: Acute (8) Intra-abdominal lymphadenopathy Status: Acute (9) Diabetes mellitus Status: Chronic (10) Hypertension Status: Chronic (11) Hyperlipidemia Status: Chronic (12) GERD (gastroesophageal reflux disease) Status: Chronic History of Present Illness Date of Admission: 09/20/18 Chief Complaint: Here for rehabilitation, strengthening, prior to disposition determination. The patient is a 78 year old Male with below past medical history significant for COPD(no home oxygen), former 30 pack year smoker, diabetes, HTN, presented to [facility] Emergency Department 09/13/2018 with shortness of breath, weakness, productive cough, fever, chills nausea. 1 month prior, he was treated for community acquired pneumonia at [facility]. 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 Patient was treated with Vancomycin, Zosyn, Azithromycin after huerta cultures. Urine antigens for s. pneumo, legionella negative, patient will continue IV Zosyn for 3 more days to complete 10 day total course of IV antibiotics. Urine culture grew. E. Faecalis which is PCN sensitive. Blood cultures negative. 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 EGD with biopsy recommended for 2.4 x 2.4CM gastric mass on smaller curvature of stomach. Patient declined EGD. Oncology consulted but unable to treat without tissue biopsy. Patient's cough, pneumonia, shortness of breath, bronchiectasis improved with treatment, he will be discharged on prednisone taper. 09/20/2018 Admit to TCU with debility, here for rehabilitation, strengthening, intravenous antibiotics, prior to disposition determination. Resident's code status is DNRCC-A. Consider EGD with biopsy after resident regains his strength, stamina. Past Medical History Past Medical History (Chronic Problems): Chronic Problems Chronic obstructive pulmonary disease (Chronic) Bronchiectasis (Chronic) Diabetes mellitus (Chronic) Hypertension (Chronic) Hyperlipidemia (Chronic) GERD (gastroesophageal reflux disease) (Chronic) Allergies Iodinated Contrast- Oral and IV Dye [CONTRASTS] Adverse Reaction (Verified 09/20/18 19:28) Unknown NSAIDS (Non-Steroidal Anti-Inflamma Adverse Reaction (Verified 09/20/18 19:28) GI bleed Home Medications: Ambulatory Orders Medication Instructions Recorded Ipratropium/Albuterol Sulfate 3 ml INHALATION Q2H PRN PRN 09/20/18 Surgical History: no surgical history, - - Left heart cath, EGD with cauterization gastric ulcer. Psychiatric History: No pertinent psych hx Lives: Spouse/ Significant Other Smoking Status: Former smoker - 30 pack year smoking history. Tobacco Use: Non-smoker Alcohol: None Drugs: None - *Family History Maternal History Items: No pertinent history Paternal History Items: No pertinent history Review of Systems Constitutional: Denies: Chills, Fever, Weight Change HEENT: Denies: Head Aches, Sinus Congestion, Sinus Drainage Cardiovascular: Denies: Chest Pain, Palpitations Respiratory: Denies: Cough, Shortness of breath at rest, Sputum production Gastrointestinal: Denies: Abdominal Pain, Nausea, Vomiting Genitourinary: Denies: Dysuria Musculoskeletal: Denies: Joint Pain, Joint Tenderness Skin: Denies: Rash, Wounds Neurological: Denies: Numbness, Tingling, Focal weakness Psychiatric: Denies: Anxiety, Depression, Homicidal Ideations, Suicidal Ideations Hematologic/ Lymphatic: Denies: Easy Bruising, Easy Bleeding VTE Information - Inpt Only VTE Present on Admission: No VTE Mechan Device Prophylaxis: Knee High LAUREL Hose VTE Pharm Prophylaxis ordered?: Yes Patient Problems: Active and Suspected Problems Debility (Acute) Multiple falls (Acute) Healthcare-associated pneumonia (Acute) Urinary tract infection (Acute) Gastric mass (Acute) Intra-abdominal lymphadenopathy (Acute) - Physical Exam General: Alert, Oriented x3, Cooperative HEENT: Atraumatic, PERRLA, EOMI, Normocephalic Neck: Supple, No JVD, Negative Carotid Bruits Lungs: Diminished - at bases., Rhonchi - Few. Cardiovascular: Regular rate, No murmurs Abdomen: Bowel Sounds Present, Soft, Non Tender Extremities: No edema, Capillary Refill Less than 3 Seconds Skin: No rashes, No breakdown Musculoskeletal: No Tenderness to Palpation of Joints or Extremities Neurological: Cranial nerves II-XII grossly intact Psych/Mental Status: Normal Affect, Appropriate Vital Signs Temp Pulse Resp BP Pulse Ox 97.3 F L 79 16 168/75 H 95 09/20/18 18:15 09/20/18 18:15 09/20/18 18:15 09/20/18 18:15 09/20/18 18:15 Oxygen Delivery Method Room Air Weight: 64.637 kg Body Mass Index (BMI) 22.3 Intake and Output for Last 24 Hours Intake Total 120 / 120 Output Total 100 / 100 Balance Assessment/Plan All Active Problems Debility (Acute) Multiple falls (Acute) Healthcare-associated pneumonia (Acute) Urinary tract infection (Acute) Gastric mass (Acute) Intra-abdominal lymphadenopathy (Acute) 78 year old male with below past medical history hospitalized for sepsis, secondary to healthcare associated pneumonia, complicated by gastric mass with gastrohepatic lymphadenopathy, but patient declined evaluation, admitted to TCU with debility, here for rehabilitation, strengthening, prior to disposition determination. * Debility - PT/OT. * Dysphagia - ST. * Pain - Tylenol 1000MG Q6H PRN mild pain. * Bowel - Miralax 17GM daily, Dulcolax 10MG daily PRN. * Pneumonia vaccination - Administer Prevnar 13 and/or Pneumovax 23 as necessary. * DVT prophylaxis - Lovenox 30MG SC daily. * COPD - Duoneb 3ML Q2H PRN, Prednisone taper. * Hypertension - Metoprolol succinate 50MG daily, Losartan 100MG daily. * Diabetes Mellitus II - Metformin 500MG daily, check A1c. * GERD - Pantoprazole 40MG daily. * Healthcare associated pneumonia/E. Faecalis urinary tract infection - Zosyn 3.375GM IV Q8H thru 09/23/2018. * Gastric mass with intra-abdominal lymphadenopathy - Consider EGD with biopsy as outpatient. 09/20/18 [id number] <Electronically signed by Dion Cruz MD> Date Dion Cruz MD Cosigner Signature: Date (if applicable) CC: Dion Cruz MD Signed BEDSIDE GLUCOSE Collected: 09/21/2018 Status: F Source: [place] 6:24 AM [facility] REPOSITORY TYPE CODE TESTS RESULT OUT OF REFERENCE UNITS RANGE LAB L501.080 70-110 mg/dL High BEDSIDE GLU 160 Result Comment: Dr Hutton Followed MANAGEMENT OF PATIENT CARE PER NURSING PROTOCOL Performed By: #### L501.080 #### [facility] Point of Care [address] [place] [address] CBC W/DIFF, AUTOMATED Collected: 09/21/2018 Status: F Source: [place] 5:15 AM [facility] REPOSITORY TYPE CODE TESTS RESULT OUT OF RANGE REFERENCE UNITS LAB L100.1000 4.4-11.0 K/mm3 High WBC 11.1 LAB L100.1200 4.6-6.2 M/mm3 Normal RBC 4.66 LAB L100.1300 13.0-16.5 g/dl Normal HGB 13.8 LAB L100.1400 40-54 % Normal HCT 42.5 LAB L100.1500 80-94 fL Normal MCV 91.2 LAB L100.1600 27.0-32.0 pg Normal MCH 29.6 LAB L100.1700 32-36 g/gl Normal MCHC 32.5 LAB L100.1810 11.6-14.6 % Normal RDW CV 13.4 LAB L100.1820 35.1-43.9 fl Normal RDW SD 43.6 LAB L100.1900 150-450 K/mm3 Normal PLT 311 LAB L100.2000 6.2-12.0 fl Normal MPV 10.2 LAB L100.2100 47-70 % High NEUT% 78.7 LAB L100.2200 19-41 % Low LY% 12.0 LAB L100.2300 0-10 % Normal MONO% 8.0 LAB L100.2400 0-5 % Normal EO% 0.4 LAB L100.2500 0-1 % Normal BASO% 0.1 LAB L100.2550 0.0-0.9 % Normal IM GRAN % 0.800 Result Comment: IG% - Immature Granulocytes (promyelocytes, myelocytes and metamyelocytes) > 1% indicates that a LEFT SHIFT is Present. LAB L100.2620 2.0-7.7 X10 3/uL High Absolute Neut 8.7 LAB L100.2720 0.83-4.51 X10 3/ul Normal Absolute Lymph 1.33 Performed By: #### L100.0100 #### [facility] [address] [place], [address] HEMOGLOBIN A1C Collected: 09/21/2018 Status: F Source: [place] 5:15 AM [facility] REPOSITORY TYPE CODE TESTS RESULT OUT OF RANGE REFERENCE UNITS LAB L501.9985 4.2-6.3 % High HGB A1C 7.8 Performed By: #### L501.9985 #### [facility] [address] [place], [address] DISCHARGE SUMMARY Observed: 09/20/2018 Status: COMPLETED Source: [facility] 1:16 PM [facility] Send Summary: Discharge Summary Providers: Provider RoleProvider Name Saulo, Ej Lou, Todd Rob, Davian ConsultingAlberto Michel, Pcp Ej Meyer Note Recipients: Alberto Michel MD Debs, Michael, MD Raad, Dany, MD Discharge: Summary: Admission Date: .13-Sep-2018 18:18:00 Discharge Date: 20-Sep-2018 Attending Physician at Discharge: Ej Upton Admission Reason: Dyspnea(1) Final Discharge Diagnoses: #sepsis 2/2 HAP #HAP #acute respiratory failure 2/2 pna, requiring oxygen #uti #spike #gastric mass on lesser curvature #gastric malignancy, suspected #lymphadenopathy vs. lymph node mets, suspected Procedures: N/A Condition at Discharge: Satisfactory Disposition at Discharge: Shelter Facility Vital Signs: T PRBPSpO2 [id number]/8198% Date/Time09/20 8: 8: 8: 8: 8:00 Range(36.3C - 36.6C ) (66 - 93 ) (17 - 18 ) (134 - 160 )/ (64 - 88 ) (95% - 100% ) As of 19-Sep-2018 16:00:00, patient is on 2 L/min of oxygen via nasal cannula. Physical Exam: Physical Exam: Constitutional: thin, on 2L NC, awake/alert/oriented x3, no distress, alert and cooperative ENMT: moist mucus membranes Respiratory/Thorax: improved rhonchi, more pronounced at left base. Cardiovascular: Regular, rate and rhythm, no murmurs, 2+ equal pulses of the extremities, normal S 1and S 2 Gastrointestinal: Nondistended, soft, non-tender, no rebound tenderness or guarding, no masses palpable, no organomegaly, +BS, no bruits Genitourinary: deferred Musculoskeletal: ROM intact, no joint swelling, normal strength Extremities: normal extremities, trace pedal edema , contusions or wounds, no clubbing Hospital Course: 78M with PMHx of COPD (no home oxygen), former 30 pack year smoker, HTN, and DM who presented from home for worsening SOB/ dyspnea on exertion. Admits to productive cough, fevers, chills, and nausea. 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 Patient was treated with Vancomycin/Zosyn/Azithromycin before legionella/strep. pneumonia/Mycoplasma resulted negative this admission. Patient will be discharged on Zosyn for another 3 days, to complete total 7 days antibiotics for pneumonia. Patient also found to have E. faecalis in urine, sensitive to penicillins. BC remained negative. Pulm consulted and patient underwent infectious workup including negative T-spot test, and elevated IgE raising suspiscion for ABPA. Pulm recommended bronchoscopy however this was deferred to outpatient pending GI mass workup. Patient originally had CT chest for respiratory distress/pneumonia, at which time was found to have emphysema/bronchiectasis/LLL consolidation/loculated pleural effusion. Incidentally noted to have mass in lesser curvature of stomach with gastrohepatic lymph node enlargement, after which dedicated CT A/P was obtained. GI was consulted and recommended EGD with biopsy for which patient was scheduled. Family and patient aware of findings and agreeable to EGD/biopsy/ possible bronchoscopy, however on day of EGD patient changed his mind and refused EGD. EGD was cancelled and will be deferred to outpatient procedure should patient reconsider his wishes. Code status changed to DNR-CCA this admission. Patient was also seen by oncology, who were following pending pathology and biopsy results, however pt refused EGD/biopsy. Patient will be discharged to [facility] per family request as his son in-law is emergency medical service coordinator there. Will continue on IV Zosyn for 3 more days for total 10 days Abx treatment for pneumonia/UTI. Will give prednisone taper and PPI while on steroids. Will follow up with GI and pulm as an outpatient for future bronchoscopy/EGD. Discharge Information: and Continuing Care: Discharge Instructions: Additional Orders: Additional Instructions: YOU WERE TREATED FOR PNEUMONIA AND A UTI (URINARY TRACT INFECTION). FOR THIS YOU RECEIVED IV ANTIBIOTICS, STEROIDS, BREATHING TREATMENTS. YOU WERE SEEN BY DR. MICHEL, PULMONOLOGY WHO RECOMMENDED A BRONCHOSCOPY AN OUTPATIENT. FOLLOW UP WITH DR. MICHEL IN 2-3 WEEKS YOU WERE EVALUATED FOR A GASTRIC MASS ON THE LESSER CURVATURE OF YOUR STOMACH. FOR THIS YOU WERE SEEN BY DR. CHAMPION, GASTROENTEROLOGY. IT WAS RECOMMENDED THAT YOU GET AN EGD WITH A BIOPSY TO FURTHER EVALUATE THIS MASS. IF YOU CHANGE YOU MIND AND DECIDE TO PURSUE WORKUP, CONTACT DR. JACEK CHAMPION'S OFFICE. FOLLOW UP WITH DR. CHAMPION IN 3-4 WEEKS. YOU ARE BEING DISCHARGED ON IV ZOSYN, STOP DATE 09/23/2017. YOU WILL ALSO BE GIVEN A PREDNISONE TAPER WELL. Rehab Services: Occupational Therapy Orders: Eval [facility] Treat ([facility]) 3-5 times/week Physical Therapy Orders: Eval and Treat ([facility]) daily Speech Therapy Orders: Eval and Treat ([facility]) Care Recommendation: I recommend that INPATIENT care is required at:: Skilled Estimated Stay: Convalescent stay < 30 days Follow Up Appointments: Follow-Up Appointment 01: Physician/Dept/Service: Dr. Alberto Michel, Pulmonary Reason for Referral: pneumonia, possible ABPA, possible bronch Call to Schedule in: Office requests to call you directly to schedule appointment Location: [facility] [employer], [address] [address]. Follow-Up Appointment 02: Physician/Dept/Service: Dr. Jacek Champion, Gastroenterology Reason for Referral: gastric mass, possible EGD with biopsy Scheduled Date/Time: 13-Oct-2018 11:30 Location: [facility] [employer], [address] [address] Discharge Medications: Home Medication losartan - 75 milligram(s) orally once a day Toprol-XL 50 mg oral tablet, extended release - 1 tab(s) orally once a day metFORMIN 500 mg oral tablet - 1 tab(s) orally once a day piperacillin-tazobactam 4 g-0.5 g/100 mL intravenous solution - 4.5 gram(s) intravenous every 6 hours ipratropium-albuterol 0.5 mg-2.5 mg/3 mLinhalation solution - 3 milliliter(s) inhaled every 8 hours predniSONE 10 mg oral tablet - Take 40 mg daily for 3 days, then take 30 mg daily for 3 days, then take 20 mg daily for 3 days, then take 10 mg daily for 3 days. Protonix 40 mg oral delayed release tablet - 1 tab(s) orally once a day PRN Medication ipratropium-albuterol 0.5 mg-2.5 mg/3 mLinhalation solution - 3 milliliter(s) inhaled every 2 hours, As needed, Shortness of Breath Lab Results - Pending: None Radiology Results - Pending: None Signature/Cosignature/Attestation: Attending AttestationI saw and evaluated the patient. I personally obtained the boykin and critical portions of the history and physical exam or was physically present for boykin and critical portions performed by the resident/fellow. I reviewed the resident/fellows documentation and discussed the patient with the resident/fellow. I agree with the resident/fellows medical decision making as documented in the residents note. I personally evaluated the patient (as noted in the above attestation) on 20-Sep-2018 Electronic Signatures: Ej Upton) (Signed 04-Oct-2018 11:38) Authored: Summary Content, Ongoing Care, Signature/Cosignature/Attestation Co-Signer: Send Summary, Summary Content, Ongoing Care, Signature/Cosignature/Attestation Karly Sepulveda (DO (Resident)) (Signed 20-Sep-2018 13:19) Authored: Send Summary, Summary Content, Ongoing Care, Signature/Cosignature/Attestation Last Updated: 04-Oct-2018 11:38 by Ej Upton) References: 1. Data Referenced From Consult-Hematology - Oncology 09/14/2018 12:26 PM DISCHARGE PROFILE2 Observed: 09/20/2018 Status: UNK Source: [facility] 11:44 AM [facility] REPOSITORY Discharge Orders: Anticipated Discharge Date: Anticipated Discharge [id number] Additional Orders: Additional Instructions YOU WERE TREATED FOR PNEUMONIA AND A UTI (URINARY TRACT INFECTION). FOR THIS YOU RECEIVED IV ANTIBIOTICS, STEROIDS, BREATHING TREATMENTS. YOU WERE SEEN BY DR. MICHEL, PULMONOLOGY WHO RECOMMENDED A BRONCHOSCOPY AN OUTPATIENT. FOLLOW UP WITH DR. MICHEL IN 2-3 WEEKS YOU WERE EVALUATED FOR A GASTRIC MASS ON THE LESSER CURVATURE OF YOUR STOMACH. FOR THIS YOU WERE SEEN BY DR. CHAMPION, GASTROENTEROLOGY. IT WAS RECOMMENDED THAT YOU GET AN EGD WITH A BIOPSY TO FURTHER EVALUATE THIS MASS. IF YOU CHANGE YOU MIND AND DECIDE TO PURSUE WORKUP, CONTACT DR. JACEK CHAMPION'S OFFICE. FOLLOW UP WITH DR. CHAMPION IN 3-4 WEEKS. YOU ARE BEING DISCHARGED ON IV ZOSYN, STOP DATE 09/23/2017. YOU WILL ALSO BE GIVEN A PREDNISONE TAPER WELL. Hospital Course (Home Care/Gold Form): Hospital Course: Hospital Course: include significant abnormal lab values 78M with PMHx of COPD (no home oxygen), former 30 pack year smoker, HTN, and DM who presented from home for worsening SOB/ dyspnea on exertion. Admits to productive cough, fevers, chills, and nausea. 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 Patient was treated with Vancomycin/Zosyn/Azithromycin before legionella/strep. pneumonia/Mycoplasma resulted negative this admission. Patient will be discharged on Zosyn for another 3 days, to complete total 7 days antibiotics for pneumonia. Patient also found to have E. faecalis in urine, sensitive to penicillins. BC remained negative. Pulm consulted and patient underwent infectious workup including negative T-spot test, and elevated IgE raising suspiscion for ABPA. Pulm recommended bronchoscopy however this was deferred to outpatient pending GI mass workup. Patient originally had CT chest for respiratory distress/pneumonia, at which time was found to have emphysema/bronchiectasis/LLL consolidation/loculated pleural effusion. Incidentally noted to have mass in lesser curvature of stomach with gastrohepatic lymph node enlargement, after which dedicated CT A/P was obtained. GI was consulted and recommended EGD with biopsy for which patient was scheduled. Family and patient aware of findings and agreeable to EGD/biopsy/ possible bronchoscopy, however on day of EGD patient changed his mind and refused EGD. EGD was cancelled and will be deferred to outpatient procedure should patient reconsider his wishes. Code status changed to DNR-CCA this admission. Patient was also seen by oncology, who were following pending pathology and biopsy results, however pt refused EGD/biopsy. Patient will be discharged to [facility] per family request as his son in-law is emergency medical service coordinator there. Will continue on IV Zosyn for 3 more days for total 10 days Abx treatment for pneumonia/UTI. Will give prednisone taper and PPI while on steroids. Will follow up with GI and pulm as an outpatient for future bronchoscopy/EGD. Gold Form Orders: Care Recommendation: I recommend that INPATIENT care is required at:Skilled Estimated StayConvalescent stay < 30 days PrognosisGood Rehab Potential/FunctionImprove Provider CertificationI certify that inpatient care is required at the level recommended above. To the best of my knowledge, all information provided about the individual is a true and accurate reflection of the individual's condition. Therapy Orders: Occupational Therapy OrdersEval and Treat ([facility]) 3-5 times/week Physical Therapy OrdersEval and Treat ([facility]) daily Speech Therapy OrdersEval and Treat ([facility]) Provider Follow Up: Physician To Follow at Skilled/RehabAttending Physician at Skilled/Rehab Provider FINAL REVIEW of Orders: Final Review: Final Review of Medication Reconciliation and Orders Completedby Physician Reviewing ProviderKarly Sepulveda DO (Resident) at 20-Sep-2018 13:22:22 Appointments: Follow-Up Appointment 01: Physician/Dept/ServiceDr. Alberto Altaqi, Pulmonary Reason for Referralpneumonia, possible ABPA, possible bronch Call to Schedule inOffice requests to call you directly to schedule appointment [id number] [place] [address], [address] [address]. Phone [phone] CommentsPlease bring your insurance card, photo id, a list of medication in the original bottle, any co-pays you may have, and the discharge summary Follow-Up Appointment 02: Physician/Dept/ServiceDr. Jacek Champion, Gastroenterology Reason for Referralgastric mass, possible EGD with biopsy Scheduled Date/[id number] 11:[id number] [place] [address], [address], [place] [address] Phone [phone] CommentsPlease bring your insurance card, photo id, a list of medication in the original bottle, any co-pays you may have, and the discharge summary Gold Form - Nursing Summary: Special Treatments/Procedures (in past 14 days): Chemotherapyno Dialysisno IV Medicationyes, IV Zosyn Last Date [id number] Oxygen Therapyyes, 2L Transfusionsno Feverno Radiationno Ventilatorno Tracheostomyno Suctioningno Nutrition: Nutritional Statusfeeds self IV Hydration: Type Of Vascular AccessPeripheral IV Peripheral IV #1 Insertion [id number] Peripheral IV #1 LocationRight Hand Device #1Angiocath Peripheral IV #1 Gauge20 gauge Sensory/Comfort: Visionuses glasses/contacts Hearinguses hearing aid SpeechAccented Elimination: Bladderincontinent, occasional Boweldiapered, incontinent, occasional Last Bowel [id number] Toiletingdiapered, toilet Safety: Restraintsno Fall Riskprevious falls Medication/Hygiene/Mobility: Medication Administrationsupervision only Bathingassist Dressingassist Bed Mobilityindependent Wheelchairassist Transfersassist Ambulationassist Electronic Signatures: Anisha Fernández (RN) (Signed 20-Sep-2018 15:52) Authored: Gold Form - Nursing Summary Dot Vera (PT ACC REP) (Signed 20-Sep-2018 14:56) Authored: Appointments Karly Sepulveda (DO (Resident)) (Signed 20-Sep-2018 13:22) Authored: Discharge Orders, Hospital Course (Home Care/Gold Form), Gold Form Orders, Provider FINAL REVIEW of Orders, Appointments, Gold Form - Synchronous Motor Assembler Summary Last Updated: 20-Sep-2018 15:52 by Anisha Fernández (RN) GLUCOSE-POCT Collected: 09/20/2018 Status: F Source: [facility] 11:41 AM [facility] REPOSITORY TYPE CODE TESTS RESULT OUT OF RANGE REFERENCE UNITS LAB GLUP(LOINC) 74 - 99 mg/dL High 209 GLUCOSE-POCT Performed By: #### GLUPO #### [place] [id number] GLUCOSE-POCT Collected: 09/20/2018 Status: F Source: [facility] 7:48 AM [facility] REPOSITORY TYPE CODE TESTS RESULT OUT OF RANGE REFERENCE UNITS LAB GLUP(LOINC) 74 - 99 mg/dL High 158 GLUCOSE-POCT Performed By: #### GLUPO #### [address] [address] CBC Collected: 09/20/2018 Status: F Source: [facility] 5:30 AM [facility] REPOSITORY TYPE CODE TESTS RESULT OUT OF REFERENCE UNITS RANGE LAB WBCR(LOINC 4.4 - 11.3 x10E9/L ) WBC High 12.4 LAB NRBC(LOINC 0.0 - 0.0 /100 WBC ) NUCLEATED RBC 0.0 LAB RBCCT(LOIN 4.50 - 5.90 x10E12/L C) Low RBC 4.11 LAB HGB(LOINC) 13.5 - 17.5 g/dL Low HGB 12.5 LAB HCT(LOINC) 41.0 - 52.0 % Low HCT 38.3 LAB MCV(LOINC) 80 - 100 fL MCV 93 LAB MCHC2(LOIN 32.0 - 36.0 g/dL C) MCHC 32.6 LAB PLTCT(LOIN 150 - 450 x10E9/L C) PLT 337 LAB RDWCV(LOIN 11.5 - 14.5 % C) RDW-CV 13.0 Performed By: #### CBC #### [address] [address] BASIC METABOLIC PANEL Collected: 09/20/2018 Status: F Source: [facility] 5:30 AM [facility] TYPE CODE TESTS RESULT OUT OF RANGE REFERENCE UNITS LAB GLU(LOINC) 74 - 99 mg/dL High GLUCOSE 243 LAB SOD(LOINC) 136 - 145 mmol/L SODIUM 136 LAB K(LOINC) 3.5 - 5.3 mmol/L POTASSIUM 4.7 LAB CHLOR(LOIN 98 - 107 mmol/L C) CHLORIDE 102 LAB BIC(LOINC) 21 - 32 mmol/L BICARBONATE 25 LAB ANGAP(LOIN 10 - 20 mmol/L C) ANION GAP 14 LAB UREA(LOINC 6 - 23 mg/dL ) High UREA NITROGEN 30 LAB CREA(LOINC 0.50 - 1.30 mg/dL ) CREATININE 1.26 LAB GFRFN(LOIN >60 mL/min/1.7 C) 3m2 GFR-NON Abnormal AM. 55 LAB GFRAA(LOIN >60 mL/min/1.7 C) 3m2 GFR- AM. 67 Result Comment: CALCULATIONS OF ESTIMATED GFR ARE PERFORMED USING THE MDRD STUDY EQUATION FOR THE IDMS-TRACEABLE CREATININE METHODS. CLIN CHEM 2007;53:766-72 LAB CA(LOINC) 8.6 - 10.3 mg/dL Low CALCIUM 7.6 Performed By: #### BMP #### [address] [address] GLUCOSE-POCT Collected: 09/20/2018 Status: F Source: [facility] 4:12 AM [facility] REPOSITORY TYPE CODE TESTS RESULT OUT OF RANGE REFERENCE UNITS LAB GLUP(LOINC) 74 - 99 mg/dL High 236 GLUCOSE-POCT Performed By: #### GLUPO #### [address] [address] GLUCOSE-POCT Collected: 09/20/2018 Status: F Source: [facility] 12:18 AM [facility] REPOSITORY TYPE CODE TESTS RESULT OUT OF RANGE REFERENCE UNITS LAB GLUP(LOINC) 74 - 99 mg/dL High 259 GLUCOSE-POCT Performed By: #### GLUPO #### [facility] [address] [place] [address] GLUCOSE-POCT Collected: 09/19/2018 Status: F Source: [facility] 7:43 PM [facility] REPOSITORY TYPE CODE TESTS RESULT OUT OF RANGE REFERENCE UNITS LAB GLUP(LOINC) 74 - 99 mg/dL High 122 GLUCOSE-POCT Performed By: #### GLUPO #### [facility] [address] [place] [address] DAILY PROGRESS Observed: 09/19/2018 Status: COMPLETED Source: [facility] NOTE-GENERAL INTERNAL 2:59 PM [facility] MEDICINE REPOSITORY Service: General Internal Medicine Subjective Data: OMAR VERA is a 78 year old Male who is Hospital Day # 7. 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 He is ambulating with PT at a brisk pace with the aid of a walker. Objective Data: Objective Information: T PRBPSpO2 [id number]/7797% Date/Time09/19 12: 12: 12: 12: 12:00 Range(36.1C - 36.6C ) (60 - 66 ) (18 - 18 ) (143 - 175 )/ (65 - 84 ) (97% - 100% ) Physical Exam: Constitutional: thin, on 2L NC, awake/alert/oriented x3, no distress, alert and cooperative ENMT: moist mucus membranes Respiratory/Thorax: Again heard are diffuse rhonchi, loudest at left base. Cardiovascular: Regular, rate and rhythm, no murmurs, 2+ equal pulses of the extremities, normal S 1and S 2 Gastrointestinal: Nondistended, soft, non-tender, no rebound tenderness or guarding, no masses palpable, no organomegaly, +BS, no bruits Genitourinary: deferred Musculoskeletal: ROM intact, no joint swelling, normal strength Extremities: normal extremities, trace pedal edema , contusions or wounds, no clubbing Medication: Medications: Continuous Medications No continuous medications are active Scheduled Medications 1. Acetylcysteine 10% Inhalation: 4 mL Inhalation Every 8 Hours 2. Albuterol 2.5mg - Ipratropium 0.5 mg/ 3mL Neb Soln: 3 mL Inhalation Every 8 Hours 3. Azithromycin IV Piggy Back: 500 mg IntraVenous Piggyback Every 24 Hours 4. Codeine 10 mg - guaiFENesin 100mg per 5 mL Oral Liquid: 5 mL Oral Every 6 Hours 5. Enoxaparin SubCutaneous: 40 mg SubCutaneous Every 24 Hours 6. Insulin Lispro Mild Corrective Scale: unit(s) SubCutaneous Every 4 Hours 7. Losartan: 75 mg Oral Daily 8. methylPREDNISolone Sodium Succinate Injectable: 40 mg IntraMuscular Every 8 Hours 9. Metoprolol Succinate Extended Release: 50 mg Oral Daily 10. Pantoprazole Injectable: 40 mg IntraVenous Push Every 24 Hours 11. Piperacillin - Tazobactam 4.5 gram/Iso-osmotic 100 mL Premix IVPB: 100 mL IntraVenous Piggyback Every 6 Hours PRN Medications 1. Acetaminophen: 650 mg Oral Every 4 Hours 2. Albuterol 2.5mg - Ipratropium 0.5 mg/ 3mL Neb Soln: 3 mL Inhalation Every 2 Hours 3. Dextrose 50% in Water Injectable: 25 gram(s) IntraVenous Push Every 15 Minutes 4. Glucagon Injectable: 1 mg IntraMuscular Every 15 Minutes Recent Lab Results: Results: I have reviewed these laboratory results: Glucose_POCT 19-Sep-2018 12:22:00 ResultValue Glucose-POCT 260 H Complete Blood Count 19-Sep-2018 05:55:00 ResultValue White Blood Cell Count 14.1 H Nucleated Erythrocyte Count 0.0 Red Blood Cell Count 3.96 L HGB 11.9 L HCT 37.1 L MCV 94 MCHC 32.1 PLT 354 RDW-CV 12.8 Basic Metabolic Panel 19-Sep-2018 05:55:00 ResultValue Glucose, Serum 144 H NA 137 K 4.5 CL 105 Bicarbonate, Serum 24 Anion Gap, Serum 13 BUN 29 H CREAT 1.02 GFR-Non >60 GFR- >60 Calcium, Serum 7.4 L Vancomycin Level, Trough 18-Sep-2018 22:50:00 ResultValue Vancomycin Level, Trough 5.3 Radiology Results: Results: Impression: 1. Stable chest. 2. Left basilar consolidation with bandlike volume loss. 3. Small left pleural effusion versus thickening. 4. Right basilar interstitial pneumonia. Xray Chest 2 View PA + Lateral [Sep 18 2018 3:29PM] Impression: There has been no significant change from previous examination. Xray Chest 2 View PA + Lateral [Sep 17 2018 10:43AM] Assessment and Plan: Additional Dx: Pleural effusion: Entered Date: 17-Sep-2018 13:58 Pneumonia: Entered Date: 17-Sep-2018 13:58 Bronchiectasis: Entered Date: 17-Sep-2018 13:58 COPD (chronic obstructive pulmonary disease): Entered Date: 17-Sep-2018 13:57 Respiratory failure: Entered Date: 17-Sep-2018 13:[address] scan, stomach: Entered Date: 15-Sep-2018 17:52 Medical History: Lymphadenopathy: Entered Date: 15-Sep-2018 17:09 Comorbidities: Comorbidity: acute kidney injury, sepsis... Kidney: acute renal failure Sepsis: severe sepsis Assessment: 78M with PMHx of COPD, HTN, and DM who presents due to dyspnea. Admits to productive cough, ataxia, fevers, chills, and nausea. Currently admitted for sepsis 2/2 HAP, and new gastric mass / possibly gastric malignancy with enlarges lymph nodes. Family and patient now decline endoscopy/biopsy while inpatient. Code status changed to DNR-CCA this admission. He is clinically improving. Persistent leukocytosis while receiving steroids. legionella/strep pneumonia negative, sputum culture unrevealing. #sepsis 2/2 HAP #HAP #acute respiratory failure 2/2 pna, requiring oxygen - weaned to 2L NC, will continue to wean - Sepsis 3: initial tachypnea. - continue Zosyn, azithromycin for HAP, - day 6 - Vancomycin stopped after day 6 -sputum culture reveals likely respiratory aiyana -mycoplasma pending -BC negative to date -continue duonebs/solu-medrol, continue mucomyst - alpha1 anti-trypsin: pending -T-spot negative - IGE, elevated at 529. - pulm resumed steroids #UTI -UC growing E. faecalis, sensitive to penicillins -currently on zosyn/azith, #SPIKE, resolved -Cr 1.02 today -on home losartan #gastric mass on lesser curvature #gastric malignancy, suspected #lymphadenopathy vs. lymph node mets, suspected -continue protonix -GI consulted: refused EGD and biopsy. should patient reconsider, this can be done as outpatient -oncology consulted: recommend checking tumor markers . (Ca 19-9, CEA) were WNL this admission -resume diet and lovenox - Patient declines inpatient endoscopy, may pursue this as outpatient #COPD #HTN #DM2 -continue toprol XL, ISS -holding home metformin #dvt prophylaxis -lovenox, scds Code Status: DNR-CCA /DNI Dispo: Planned DC to SNF, will discuss with pill maker. PT/OT to eval Signature/Cosignature/Attestation: Attending AttestationI saw and evaluated the patient. I personally obtained the boykin and critical portions of the history and physical exam or was physically present for boykin and critical portions performed by the resident/fellow. I reviewed the resident/fellows documentation and discussed the patient with the resident/fellow. I agree with the resident/fellows medical decision making as documented in the residents note. I personally evaluated the patient (as noted in the above attestation) on 19-Sep-2018 Electronic Signatures: Ej Upton) (Signed 04-Oct-2018 11:37) Authored: Signature/Cosignature/Attestation Co-Signer: Service, Subjective Data, Objective Data, Assessment and Plan, Signature/Cosignature/Attestation Bao Morrow (DO (Resident)) (Signed 19-Sep-2018 15:09) Authored: Service, Subjective Data, Objective Data, Assessment and Plan, Signature/Cosignature/Attestation Last Updated: 04-Oct-2018 11:37 by Ej Upton) GLUCOSE-POCT Collected: 09/19/2018 Status: F Source: [facility] 12:22 PM [facility]ENTER REPOSITORY TYPE CODE TESTS RESULT OUT OF RANGE REFERENCE UNITS LAB GLUP(LOINC) 74 - 99 mg/dL High 260 GLUCOSE-POCT Performed By: #### GLUPO #### [facility] [address] [place] [address] DAILY PROGRESS Observed: 09/19/2018 Status: COMPLETED Source: [facility] NOTE-PULMONOLOGY 9:43 AM MEDICAL CENTER REPOSITORY Service: Pulmonology Subjective Data: OMAR VERA is a 78 year old Male who is Hospital Day # 7. Additional Information: Still SOB, some congestion, can't bring it out. Objective Data: Objective Information: T PRBPSpO2 [id number]% Date/Time09/19 8: 8: 8: 8: 8:00 Range(36.2C - 36.6C ) (60 - 72 ) (18 - 18 ) (143 - 170 )/ (65 - 84 ) (96% - 100% ) ---- Intake and Output ----- Mn/Dy/Year TimeIntakeOutputNet Sep 19, 2018 6:00 [id number] Sep 18, 2018 10:00 [id number] Sep 18, 2018 2:00 [id number] The Intake and Output Totals for the last 24 hours are: IntakeOutputNet [id number] Physical Exam: Constitutional: Awake, alert Eyes: PERRL, EOMI, clear sclera ENMT: mucous membranes moist, no apparent injury, no lesions seen Head/Neck: Neck supple, no apparent injury, thyroid without mass or tenderness, No JVD, trachea midline, no bruits Respiratory/Thorax: few rhonchi, few wheezes Cardiovascular: RRR Skin: Warm and dry, no lesions, no rashes Medication: Medications: ANTI-INFECTIVES: 1. Azithromycin IV Piggy Back: 500 mg IntraVenous Piggyback Every 24 Hours 2. Piperacillin - Tazobactam 4.5 gram/Iso-osmotic 100 mL Premix IVPB: 100 mL IntraVenous Piggyback Every 6 Hours CARDIOVASCULAR AGENTS: 1. Losartan: 75 mg Oral Daily 2. Metoprolol Succinate Extended Release: 50 mg Oral Daily CENTRAL NERVOUS SYSTEM AGENTS: 1. Acetaminophen: 650 mg Oral Every 4 Hours PRN COAGULATION MODIFIERS: 1. Enoxaparin SubCutaneous: 40 mg SubCutaneous Every 24 Hours GASTROINTESTINAL AGENTS: 1. Pantoprazole Injectable: 40 mg IntraVenous Push Every 24 Hours HORMONES/HORMONE MODIFIERS: 1. methylPREDNISolone Sodium Succinate Injectable: 40 mg IntraMuscular Every 8 Hours METABOLIC AGENTS: 1. Insulin Lispro Mild Corrective Scale: unit(s) SubCutaneous Every 4 Hours 2. Dextrose 50% in Water Injectable: 25 gram(s) IntraVenous Push Every 15 Minutes PRN 3. Glucagon Injectable: 1 mg IntraMuscular Every 15 Minutes PRN RESPIRATORY AGENTS: 1. Albuterol 2.5mg - Ipratropium 0.5 mg/ 3mL Neb Soln: 3 mL Inhalation Every 2 Hours PRN 2. Albuterol 2.5mg - Ipratropium 0.5 mg/ 3mL Neb Soln: 3 mL Inhalation Every 8 Hours 3. Acetylcysteine 10% Inhalation: 4 mL Inhalation Every 8 Hours 4. Codeine 10 mg - guaiFENesin 100mg per 5 mL Oral Liquid: 5 mL Oral Every 6 Hours Recent Lab Results: Results: I have reviewed these laboratory results: Complete Blood Count 19-Sep-2018 05:55:00 ResultValue White Blood Cell Count 14.1 H Nucleated Erythrocyte Count 0.0 Red Blood Cell Count 3.96 L HGB 11.9 L HCT 37.1 L MCV 94 MCHC 32.1 PLT 354 RDW-CV 12.8 Basic Metabolic Panel 19-Sep-2018 05:55:00 ResultValue Glucose, Serum 144 H NA 137 K 4.5 CL 105 Bicarbonate, Serum 24 Anion Gap, Serum 13 BUN 29 H CREAT 1.02 GFR-Non >60 GFR- >60 Calcium, Serum 7.4 L Radiology Results: Results: Impression: 1. Stable chest. 2. Left basilar consolidation with bandlike volume loss. 3. Small left pleural effusion versus thickening. 4. Right basilar interstitial pneumonia. Xray Chest 2 View PA + Lateral [Sep 18 2018 3:29PM] Assessment and Plan: Additional Dx: Pleural effusion: Entered Date: 17-Sep-2018 13:58 Pneumonia: Entered Date: 17-Sep-2018 13:58 Bronchiectasis: Entered Date: 17-Sep-2018 13:58 COPD (chronic obstructive pulmonary disease): Entered Date: 17-Sep-2018 13:57 Respiratory failure: Entered Date: 17-Sep-2018 13:[address] scan, stomach: Entered Date: 15-Sep-2018 17:52 Assessment: Add BPH. Electronic Signatures: Jazmyn Morrissey) (Signed 19-Sep-2018 09:45) Authored: Service, Subjective Data, Objective Data, Assessment and Plan, Signature/Cosignature/Attestation Last Updated: 19-Sep-2018 09:45 by Jazmyn Morrissey) CBC Collected: 09/19/2018 Status: F Source: [facility] 5:55 AM [facility]ENTER REPOSITORY TYPE CODE TESTS RESULT OUT OF REFERENCE UNITS RANGE LAB WBCR(LOINC 4.4 - 11.3 x10E9/L ) WBC High 14.1 LAB NRBC(LOINC 0.0 - 0.0 /100 WBC ) NUCLEATED RBC 0.0 LAB RBCCT(LOIN 4.50 - 5.90 x10E12/L C) Low RBC 3.96 LAB HGB(LOINC) 13.5 - 17.5 g/dL Low HGB 11.9 LAB HCT(LOINC) 41.0 - 52.0 % Low HCT 37.1 LAB MCV(LOINC) 80 - 100 fL MCV 94 LAB MCHC2(LOIN 32.0 - 36.0 g/dL C) MCHC 32.1 LAB PLTCT(LOIN 150 - 450 x10E9/L C) PLT 354 LAB RDWCV(LOIN 11.5 - 14.5 % C) RDW-CV 12.8 Performed By: #### CBC #### [facility] [address] [place] [address] BASIC METABOLIC PANEL Collected: 09/19/2018 Status: F Source: [facility] 5:55 AM [facility]ENTER REPOSITORY TYPE CODE TESTS RESULT OUT OF REFERENCE UNITS RANGE LAB GLU(LOINC) 74 - 99 mg/dL GLUCOSE High 144 LAB SOD(LOINC) 136 - 145 mmol/L SODIUM 137 LAB K(LOINC) 3.5 - 5.3 mmol/L POTASSIUM 4.5 LAB CHLOR(LOIN 98 - 107 mmol/L C) CHLORIDE 105 LAB BIC(LOINC) 21 - 32 mmol/L BICARBONATE 24 LAB ANGAP(LOIN 10 - 20 mmol/L C) ANION GAP 13 LAB UREA(LOINC 6 - 23 mg/dL ) UREA High NITROGEN 29 LAB CREA(LOINC 0.50 - 1.30 mg/dL ) CREATININE 1.02 LAB GFRFN(LOIN >60 mL/min/1.7 C) 3m2 GFR-NON AM. >60 LAB GFRAA(LOIN >60 mL/min/1.7 C) 3m2 GFR- AM. >60 Result Comment: CALCULATIONS OF ESTIMATED GFR ARE PERFORMED USING THE MDRD STUDY EQUATION FOR THE IDMS-TRACEABLE CREATININE METHODS. CLIN CHEM 2007;53:766-72 LAB CA(LOINC) 8.6 - 10.3 mg/dL Low CALCIUM 7.4 Performed By: #### BMP #### [address] [address] GLUCOSE-POCT Collected: 09/19/2018 Status: F Source: [facility] 3:51 AM [facility]ENTER REPOSITORY TYPE CODE TESTS RESULT OUT OF RANGE REFERENCE UNITS LAB GLUP(LOINC) 74 - 99 mg/dL High 185 GLUCOSE-POCT Performed By: #### GLUPO #### [address] [address] GLUCOSE-POCT Collected: 09/19/2018 Status: F Source: [facility] 12:14 AM [facility]ENTER REPOSITORY TYPE CODE TESTS RESULT OUT OF RANGE REFERENCE UNITS LAB GLUP(LOINC) 74 - 99 mg/dL High 184 GLUCOSE-POCT Performed By: #### GLUPO #### [address] [address] VANCOMYCIN,TROUGH Collected: Status: F Source: [facility] 09/18/2018 10:50 PM MEDICAL [facility]ENTER REPOSITORY TYPE CODE TESTS RESULT OUT OF RANGE REFERENCE UNITS LAB VANCT(LOINC 5.0 - 20.0 ug/mL ) 5.3 VANCOMYCIN,T ROUGH Result Comment: Vancomycin levels should be interpreted in conjunction with the dose, disease being treated, vancomycin OZZY, time of draw (trough concentrations should be obtained just before the next dose at steady-state), and other clinical information. Trough concentrations of 15-20 ug/mL are desired for severe infections. Ref.: Am J Health-Syst Pharm 66: 83-98, 2008. Performed By: #### VANCT #### [facility] [address] [place] [id number] GLUCOSE-POCT Collected: 09/18/2018 Status: F Source: [facility] 8:34 PM [facility] REPOSITORY TYPE CODE TESTS RESULT OUT OF RANGE REFERENCE UNITS LAB GLUP(LOINC) 74 - 99 mg/dL High 202 GLUCOSE-POCT Performed By: #### GLUPO #### [address] [address] DAILY PROGRESS Observed: 09/18/2018 Status: COMPLETED Source: [facility] NOTE-GENERAL INTERNAL 5:15 PM MEDICAL CENTER MEDICINE REPOSITORY Service: General Internal Medicine Subjective Data: OMAR VERA is a 78 year old Male who is Hospital Day # 6. Additional Information: Dr Vera reports feeling slightly better today with improved appetite. He is again weak. Objective Data: Objective Information: ---- Intake and Output ----- Mn/Dy/Year TimeIntakeOutputNet Sep 18, 2018 2:00 [id number] Sep 17, 2018 10:00 [id number] The Intake and Output Totals for the last 24 hours are: IntakeOutputNet [id number] Physical Exam: Constitutional: thin, on 2L NC, awake/alert/oriented x3, no distress, alert and cooperative ENMT: moist mucus membranes Respiratory/Thorax: Again heard are diffuse rhonchi, loudest at left base. Cardiovascular: Regular, rate and rhythm, no murmurs, 2+ equal pulses of the extremities, normal S 1and S 2 Gastrointestinal: Nondistended, soft, non-tender, no rebound tenderness or guarding, no masses palpable, no organomegaly, +BS, no bruits Genitourinary: deferred Musculoskeletal: ROM intact, no joint swelling, normal strength Extremities: normal extremities, trace pedal edema , contusions or wounds, no clubbing Medication: Medications: Continuous Medications No continuous medications are active Scheduled Medications 1. Acetylcysteine 10% Inhalation: 4 mL Inhalation Every 8 Hours 2. Albuterol 2.5mg - Ipratropium 0.5 mg/ 3mL Neb Soln: 3 mL Inhalation Every 8 Hours 3. Azithromycin IV Piggy Back: 500 mg IntraVenous Piggyback Every 24 Hours 4. Codeine 10 mg - guaiFENesin 100mg per 5 mL Oral Liquid: 5 mL Oral Every 6 Hours 5. Enoxaparin SubCutaneous: 40 mg SubCutaneous Every 24 Hours 6. Insulin Lispro Mild Corrective Scale: unit(s) SubCutaneous Every 4 Hours 7. Losartan: 75 mg Oral Daily 8. methylPREDNISolone Sodium Succinate Injectable: 40 mg IntraMuscular Every 8 Hours 9. Metoprolol Succinate Extended Release: 50 mg Oral Daily 10. Pantoprazole Injectable: 40 mg IntraVenous Push Every 24 Hours 11. Piperacillin - Tazobactam 4.5 gram/Iso-osmotic 100 mL Premix IVPB: 100 mL IntraVenous Piggyback Every 6 Hours PRN Medications 1. Acetaminophen: 650 mg Oral Every 4 Hours 2. Albuterol 2.5mg - Ipratropium 0.5 mg/ 3mL Neb Soln: 3 mL Inhalation Every 2 Hours 3. Dextrose 50% in Water Injectable: 25 gram(s) IntraVenous Push Every 15 Minutes 4. Glucagon Injectable: 1 mg IntraMuscular Every 15 Minutes Assessment and Plan: Additional Dx: Pleural effusion: Entered Date: 17-Sep-2018 13:58 Pneumonia: Entered Date: 17-Sep-2018 13:58 Bronchiectasis: Entered Date: 17-Sep-2018 13:58 COPD (chronic obstructive pulmonary disease): Entered Date: 17-Sep-2018 13:57 Respiratory failure: Entered Date: 17-Sep-2018 13:[address] scan, stomach: Entered Date: 15-Sep-2018 17:52 Medical History: Lymphadenopathy: Entered Date: 15-Sep-2018 17:09 Comorbidities: Comorbidity: acute kidney injury, sepsis... Kidney: acute renal failure Sepsis: severe sepsis Assessment: 78M with PMHx of COPD, HTN, and DM who presents due to dyspnea. Admits to productive cough, ataxia, fevers, chills, and nausea. 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 Family and patient now decline endoscopy/biopsy while inpatient. Code status changed to DNR-CCA this admission. #sepsis 2/2 HAP #HAP #acute respiratory failure 2/2 pna, requiring oxygen - weaned to 2L NC - Sepsis 3: initial tachypnea. leukocytosis WBC 12.6 today - continue Zosyn, azithromycin for HAP, - day 5 - Vancomycin stopped after day 6 -legionella/strep pneumonia negative, -sputum culture reveals likely respiratory aiyana -mycoplasma pending -BC negative to date -continue duonebs/solu-medrol, continue mucomyst -pulm consulted : may benefit from bronchoscopy pending GI evaluation. however this can also be done as outpatient pending gastric evaluation and workup - alpha1 anti-trypsin, T-spot pending - IGE, elevated at 529. pulm holding off on steroids at this time pending gastric mass evaluation #UTI -UC growing E. faecalis -currently on zosyn/azith, sputum culture unrevealing #SPIKE, resolved -doing ok off IVF -Cr 1.09 today -on home losartan #gastric mass on lesser curvature #gastric malignancy, suspected #lymphadenopathy vs. lymph node mets, suspected -continue protonix -GI consulted: refused EGD. should patient reconsider, this can be done as outpatient -oncology consulted: recommend checking tumor markers . (Ca 19-9, CEA) were WNL this admission -resume diet and lovenox - Patient declines inpatient endoscopy, may pursue this as outpatient #COPD #HTN #DM2 -continue toprol XL, ISS -holding home metformin #dvt prophylaxis -lovenox, scds Code Status: DNR-CCA /DNI Dispo: Planned DC to SNF, will discuss with pill maker. PT/OT to eval Signature/Cosignature/Attestation: Attending AttestationI saw and evaluated the patient. I personally obtained the boykin and critical portions of the history and physical exam or was physically present for boykin and critical portions performed by the resident/fellow. I reviewed the resident/fellows documentation and discussed the patient with the resident/fellow. I agree with the resident/fellows medical decision making as documented in the residents note. I personally evaluated the patient (as noted in the above attestation) on 19-Aug-2018 Electronic Signatures: Ej Upton) (Signed 04-Oct-2018 11:36) Authored: Signature/Cosignature/Attestation Co-Signer: Service, Subjective Data, Objective Data, Assessment and Plan, Signature/Cosignature/Attestation Bao Morrow (DO (Resident)) (Signed 18-Sep-2018 17:32) Authored: Service, Subjective Data, Objective Data, Assessment and Plan, Signature/Cosignature/Attestation Last Updated: 04-Oct-2018 11:36 by Ej Upton) GLUCOSE-POCT Collected: 09/18/2018 Status: F Source: [facility] 3:55 PM [facility]ICAL [facility]ENTER REPOSITORY TYPE CODE TESTS RESULT OUT OF RANGE REFERENCE UNITS LAB GLUP(LOINC) 74 - 99 mg/dL High 196 GLUCOSE-POCT Performed By: #### GLUPO #### [facility] [address] [id number] CHEST 2 VIEW PA AND Observed: 09/18/2018 Status: F Source: [facility] LAT 2:54 PM MEDICAL [facility]ENTER REPOSITORY Patient Name: OMAR VERA STUDY: CHEST 2 VIEW PA AND LAT; 09/18/2018 2:54 pm INDICATION: Signs/Symptoms: cough. COMPARISON: 09/17/2018 ACCESSION NUMBER(S): [id number] ORDERING CLINICIAN: BAO MORROW FINDINGS: CARDIOMEDIASTINAL SILHOUETTE: Cardiomediastinal silhouette is normal in size and configuration. LUNGS: There is persistent left basilar pneumonia with the bandlike volume loss. There is a small left pleural effusion versus thickening. There is right basilar interstitial pneumonia, unchanged. ABDOMEN: No remarkable upper abdominal findings. BONES: No acute osseous changes. IMPRESSION: 1. Stable chest. 2. Left basilar consolidation with bandlike volume loss. 3. Small left pleural effusion versus thickening. 4. Right basilar interstitial pneumonia. Electronically signed by: JOSE MIGUEL TALBERT MD GLUCOSE-POCT Collected: 09/18/2018 Status: F Source: [facility] 11:44 AM MEDICAL [facility]ENTER REPOSITORY TYPE CODE TESTS RESULT OUT OF RANGE REFERENCE UNITS LAB GLUP(LOINC) 74 - 99 mg/dL High 252 GLUCOSE-POCT Performed By: #### GLUPO #### [id number] [place] [address] GLUCOSE-POCT Collected: 09/18/2018 Status: F Source: [facility] 8:08 AM [facility]ICAL [facility]ENTER REPOSITORY TYPE CODE TESTS RESULT OUT OF RANGE REFERENCE UNITS LAB GLUP(LOINC) 74 - 99 mg/dL High 153 GLUCOSE-POCT Performed By: #### GLUPO #### [facility] [address] [place] [address] CBC Collected: 09/18/2018 Status: F Source: [facility] 5:55 AM MEDICAL [facility]ENTER REPOSITORY TYPE CODE TESTS RESULT OUT OF REFERENCE UNITS RANGE LAB WBCR(LOINC 4.4 - 11.3 x10E9/L ) WBC High 12.6 LAB NRBC(LOINC 0.0 - 0.0 /100 WBC ) NUCLEATED RBC 0.0 LAB RBCCT(LOIN 4.50 - 5.90 x10E12/L C) Low RBC 4.07 LAB HGB(LOINC) 13.5 - 17.5 g/dL Low HGB 12.3 LAB HCT(LOINC) 41.0 - 52.0 % Low HCT 38.1 LAB MCV(LOINC) 80 - 100 fL MCV 94 LAB MCHC2(LOIN 32.0 - 36.0 g/dL C) MCHC 32.3 LAB PLTCT(LOIN 150 - 450 x10E9/L C) PLT 369 LAB RDWCV(LOIN 11.5 - 14.5 % C) RDW-CV 13.0 Performed By: #### CBC #### [facility] [address] [place] [address] BASIC METABOLIC PANEL Collected: 09/18/2018 Status: F Source: [facility] 5:55 AM [facility]ENTER REPOSITORY TYPE CODE TESTS RESULT OUT OF REFERENCE UNITS RANGE LAB GLU(LOINC) 74 - 99 mg/dL GLUCOSE High 180 LAB SOD(LOINC) 136 - 145 mmol/L SODIUM 138 LAB K(LOINC) 3.5 - 5.3 mmol/L POTASSIUM 4.5 LAB CHLOR(LOIN 98 - 107 mmol/L C) CHLORIDE 106 LAB BIC(LOINC) 21 - 32 mmol/L BICARBONATE 25 LAB ANGAP(LOIN 10 - 20 mmol/L C) ANION GAP 12 LAB UREA(LOINC 6 - 23 mg/dL ) UREA High NITROGEN 30 LAB CREA(LOINC 0.50 - 1.30 mg/dL ) CREATININE 1.09 LAB GFRFN(LOIN >60 mL/min/1.7 C) 3m2 GFR-NON AM. >60 LAB GFRAA(LOIN >60 mL/min/1.7 C) 3m2 GFR- AM. >60 Result Comment: CALCULATIONS OF ESTIMATED GFR ARE PERFORMED USING THE MDRD STUDY EQUATION FOR THE IDMS-TRACEABLE CREATININE METHODS. CLIN CHEM 2007;53:766-72 LAB CA(LOINC) 8.6 - 10.3 mg/dL Low CALCIUM 7.6 Performed By: #### BMP #### [facility] [address] [place] [address] GLUCOSE-POCT Collected: 09/18/2018 Status: F Source: [facility] 4:08 AM [facility]ICAL [facility]ENTER REPOSITORY TYPE CODE TESTS RESULT OUT OF RANGE REFERENCE UNITS LAB GLUP(LOINC) 74 - 99 mg/dL High 184 GLUCOSE-POCT Performed By: #### GLUPO #### [address] [address] GLUCOSE-POCT Collected: 09/18/2018 Status: F Source: [facility] 12:06 AM [facility]ICAL [facility]ENTER REPOSITORY TYPE CODE TESTS RESULT OUT OF RANGE REFERENCE UNITS LAB GLUP(LOINC) 74 - 99 mg/dL High 266 GLUCOSE-POCT Performed By: #### GLUPO #### [address] [address] GLUCOSE-POCT Collected: 09/17/2018 Status: F Source: [facility] 8:08 PM [facility] REPOSITORY TYPE CODE TESTS RESULT OUT OF RANGE REFERENCE UNITS LAB GLUP(LOINC) 74 - 99 mg/dL High 229 GLUCOSE-POCT Performed By: #### GLUPO #### [address] [address] GLUCOSE-POCT Collected: 09/17/2018 Status: F Source: [facility] 3:46 PM [facility]ENTER REPOSITORY TYPE CODE TESTS RESULT OUT OF RANGE REFERENCE UNITS LAB GLUP(LOINC) 74 - 99 mg/dL High 225 GLUCOSE-POCT Performed By: #### GLUPO #### [address] [address] DAILY PROGRESS Observed: 09/17/2018 Status: COMPLETED Source: [facility] NOTE-PULMONOLOGY 1:55 PM [facility] REPOSITORY Service: Pulmonology Subjective Data: OMAR VERA is a 78 year old Male who is Hospital Day # 5. Additional Information: A little language barrier. Still SOB. Objective Data: Objective Information: T PRBPSpO2 [id number]/7898% Date/Time09/17 12: 12: 12: 12: 12:00 Range(36C - 36.7C ) (70 - 84 ) (16 - 18 ) (133 - 169 )/ (65 - 85 ) (93% - 98% ) Physical Exam: Constitutional: Awake, alert Eyes: PERRL, EOMI, clear sclera ENMT: mucous membranes moist, no apparent injury, no lesions seen Head/Neck: Neck supple, no apparent injury, thyroid without mass or tenderness, No JVD, trachea midline, no bruits Respiratory/Thorax: few rhonchi, few wheezes Cardiovascular: RRR Gastrointestinal: soft Skin: Warm and dry, no lesions, no rashes Medication: Medications: 1. Vancomycin - Pharmacy to Dose: 1 each As Specified Variable ANTI-INFECTIVES: 1. Vancomycin IV Piggy Back: 1.5 gram(s) IntraVenous Piggyback Every 24 Hours 2. Azithromycin IV Piggy Back: 500 mg IntraVenous Piggyback Every 24 Hours 3. Piperacillin - Tazobactam 4.5 gram/Iso-osmotic 100 mL Premix IVPB: 100 mL IntraVenous Piggyback Every 6 Hours CARDIOVASCULAR AGENTS: 1. Losartan: 75 mg Oral Daily 2. Metoprolol Succinate Extended Release: 50 mg Oral Daily CENTRAL NERVOUS SYSTEM AGENTS: 1. Acetaminophen: 650 mg Oral Every 4 Hours PRN COAGULATION MODIFIERS: 1. Enoxaparin SubCutaneous: 40 mg SubCutaneous Every 24 Hours GASTROINTESTINAL AGENTS: 1. Pantoprazole Injectable: 40 mg IntraVenous Push Every 24 Hours HORMONES/HORMONE MODIFIERS: 1. methylPREDNISolone Sodium Succinate Injectable: 40 mg IntraMuscular Every 8 Hours METABOLIC AGENTS: 1. Insulin Lispro Mild Corrective Scale: unit(s) SubCutaneous Every 4 Hours 2. Dextrose 50% in Water Injectable: 25 gram(s) IntraVenous Push Every 15 Minutes PRN 3. Glucagon Injectable: 1 mg IntraMuscular Every 15 Minutes PRN RESPIRATORY AGENTS: 1. Albuterol 2.5mg - Ipratropium 0.5 mg/ 3mL Neb Soln: 3 mL Inhalation Every 2 Hours PRN 2. Albuterol 2.5mg - Ipratropium 0.5 mg/ 3mL Neb Soln: 3 mL Inhalation Every 8 Hours 3. Acetylcysteine 10% Inhalation: 4 mL Inhalation Every 8 Hours 4. Codeine 10 mg - guaiFENesin 100mg per 5 mL Oral Liquid: 5 mL Oral Every 6 Hours Recent Lab Results: Results: I have reviewed these laboratory results: Complete Blood Count 17-Sep-2018 06:40:00 ResultValue White Blood Cell Count 10.9 Nucleated Erythrocyte Count 0.0 Red Blood Cell Count 3.89 L HGB 11.9 L HCT 37.2 L MCV 96 MCHC 32.0 PLT 377 RDW-CV 13.2 Basic Metabolic Panel 17-Sep-2018 06:40:00 ResultValue Glucose, Serum 169 H NA 139 K 4.6 CL 107 Bicarbonate, Serum 26 Anion Gap, Serum 11 BUN 29 H CREAT 1.15 GFR-Non >60 GFR- >60 Calcium, Serum 7.4 L Respiratory Allergy Profile Region 5, IC 17-Sep-2018 06:40:00 ResultValue Immunocap Interpretation, IgE SEE COMMENT REFERENCE RANGE (IMMUNOCAP) IGE KU/L CLASS INTERPRETATION < 0.35 0 BELOW DETECTION 0.35- 0.69 1 LOW POSITIVE 0.70- 3.49 2 MODERATE POSITIVE 3.50- 17.49 3 HIGH P Radiology Results: Results: Impression: There has been no significant change from previous examination. Xray Chest 2 View PA + Lateral [Sep 17 2018 10:43AM] Impression: No definite evidence of acute posttraumatic abnormality in the chest. Respiratory motion limits evaluation of the lung parenchyma. A there is moderate to severe bilateral centrilobular emphysema. Moderate bilateral cylindrical bronchiectasis with multifocal segmental and subsegmental mucoid impaction. There are bilateral tree-in-bud opacities suggesting infectious/inflammatory pneumonitis. Mildly increased bilateral interstitial markings likely reflect chronic interstitial fibrosis with or without a component of mild acute pulmonary interstitial edema. There is left lower lobe consolidation with volume loss, probably reflecting a combination of atelectasis with pneumonia or aspiration. There are calcifications within the area of consolidative left lower lobe opacity, probably reflecting old granulomas. Underlying neoplasm related to the areas of abnormal parenchymal opacity cannot be excluded. There is a small loculated left basilar pleural effusion. Empyema or malignant effusion are possibilities. Correlation with pleural fluid sampling may be helpful. No pleural effusion on the right. No pneumothorax. There are bulky gastrohepatic lymph nodes measuring up to 2.4 x 2.4 cm in transaxial diameters. There is the suggestion of a subserosal mass arising exophytically from the lesser curvature the stomach on axial images 52 and 53, poorly delineated without IV contrast but measuring at least up to 2.7 x 2.0 cm in transaxial diameters. 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 Recommend further workup with nonemergent CT abdomen and pelvis CT Chest without Contrast [Sep 13 2018 8:00PM] Assessment and Plan: Additional Dx: Pleural effusion: Entered Date: 17-Sep-2018 13:58 Pneumonia: Entered Date: 17-Sep-2018 13:58 Bronchiectasis: Entered Date: 17-Sep-2018 13:58 COPD (chronic obstructive pulmonary disease): Entered Date: 17-Sep-2018 13:57 Respiratory failure: Entered Date: 17-Sep-2018 13:[address] scan, stomach: Entered Date: 15-Sep-2018 17:52 Assessment: Same medicines for now. Electronic Signatures: Jazmyn Morrissey) (Signed 17-Sep-2018 13:59) Authored: Service, Subjective Data, Objective Data, Assessment and Plan, Signature/Cosignature/Attestation Last Updated: 17-Sep-2018 13:59 by Jazmyn Morrissey) GLUCOSE-POCT Collected: 09/17/2018 Status: F Source: [facility] 11:35 AM [facility] REPOSITORY TYPE CODE TESTS RESULT OUT OF RANGE REFERENCE UNITS LAB GLUP(LOINC) 74 - 99 mg/dL High 155 GLUCOSE-POCT Performed By: #### GLUPO #### [facility] [address] [place] [address] CHEST 2 VIEW PA AND Observed: 09/17/2018 Status: F Source: [facility] LAT 9:56 AM MEDICAL CENTER REPOSITORY Patient Name: OMAR VERA STUDY: CHEST 2 VIEW PA AND LAT; 09/17/2018 9:56 am INDICATION: Signs/Symptoms: re-assess pneumonia/bronhciectasis. COMPARISON: 09/13/2018 ACCESSION NUMBER(S): [id number] ORDERING CLINICIAN: KARLY SEPULVEDA TECHNIQUE: Frontal and lateral views of the chest. FINDINGS: The cardiomediastinal silhouette is enlarged. Moderate left pleural effusion with left lower lobe consolidative opacity. No definite right pleural effusion. Interstitial opacities within the right lower lobe. Lungs are hyperinflated and hyperlucent compatible with emphysema.. No pneumothorax. IMPRESSION: There has been no significant change from previous examination. Electronically signed by: LAKISHA ACUNA MD GLUCOSE-POCT Collected: 09/17/2018 Status: F Source: [facility] 6:49 AM [facility]ICAL [facility]ENTER REPOSITORY TYPE CODE TESTS RESULT OUT OF RANGE REFERENCE UNITS LAB GLUP(LOINC) 74 - 99 mg/dL High 209 GLUCOSE-POCT Performed By: #### GLUPO #### [facility] [address] [place] [address] CBC Collected: 09/17/2018 Status: F Source: [facility] 6:40 AM [facility] REPOSITORY TYPE CODE TESTS RESULT OUT OF REFERENCE UNITS RANGE LAB WBCR(LOINC 4.4 - 11.3 x10E9/L ) WBC 10.9 LAB NRBC(LOINC 0.0 - 0.0 /100 WBC ) NUCLEATED RBC 0.0 LAB RBCCT(LOIN 4.50 - 5.90 x10E12/L C) Low RBC 3.89 LAB HGB(LOINC) 13.5 - 17.5 g/dL Low HGB 11.9 LAB HCT(LOINC) 41.0 - 52.0 % Low HCT 37.2 LAB MCV(LOINC) 80 - 100 fL MCV 96 LAB MCHC2(LOIN 32.0 - 36.0 g/dL C) MCHC 32.0 LAB PLTCT(LOIN 150 - 450 x10E9/L C) PLT 377 LAB RDWCV(LOIN 11.5 - 14.5 % C) RDW-CV 13.2 Performed By: #### CBC #### [facility] [address] [place] [address] BASIC METABOLIC PANEL Collected: 09/17/2018 Status: F Source: [facility] 6:40 AM [facility] REPOSITORY TYPE CODE TESTS RESULT OUT OF REFERENCE UNITS RANGE LAB GLU(LOINC) 74 - 99 mg/dL GLUCOSE High 169 LAB SOD(LOINC) 136 - 145 mmol/L SODIUM 139 LAB K(LOINC) 3.5 - 5.3 mmol/L POTASSIUM 4.6 LAB CHLOR(LOIN 98 - 107 mmol/L C) CHLORIDE 107 LAB BIC(LOINC) 21 - 32 mmol/L BICARBONATE 26 LAB ANGAP(LOIN 10 - 20 mmol/L C) ANION GAP 11 LAB UREA(LOINC 6 - 23 mg/dL ) UREA High NITROGEN 29 LAB CREA(LOINC 0.50 - 1.30 mg/dL ) CREATININE 1.15 LAB GFRFN(LOIN >60 mL/min/1.7 C) 3m2 GFR-NON AM. >60 LAB GFRAA(LOIN >60 mL/min/1.7 C) 3m2 GFR- AM. >60 Result Comment: CALCULATIONS OF ESTIMATED GFR ARE PERFORMED USING THE MDRD STUDY EQUATION FOR THE IDMS-TRACEABLE CREATININE METHODS. CLIN CHEM 2007;53:766-72 LAB CA(LOINC) 8.6 - 10.3 mg/dL Low CALCIUM 7.4 Performed By: #### BMP #### [facility] [address] [place] [address] RESPIRATORY ALLERGY Collected: 09/17/2018 Status: F Source: [facility] 6:40 AM [facility] REPOSITORY TYPE CODE TESTS RESULT OUT OF REFERENCE UNITS RANGE LAB ICIGE(LOIN 0.0 - 70.0 KU/L C) High IMMUNOCAP IGE 387.0 Result Comment: Note: Omalizumab (Xolair, GenentPipeliner CRM; humanized IgG1 antihuman IgE Fc) treatment does not significantly interfere with the accuracy of total IgE on the ImmunoCAP (BeavEx) platform. J Allergy Clin Immunol 2006;117:759-66). Allergens, parasitic diseases, smoking, and alcohol consumption have been reported to increase levels of total IgE in serum. LAB ICG03(LOINC) <0.35 KU/L GRASS,BERMUDA,IGE,IC Abnormal 6.93 Result Comment: SEE IMMUNOCAP INTERP.IGE LAB ICG04(LOINC) <0.35 KU/L GRASS,CAMILLE,IGE,IC Abnormal 7.57 Result Comment: SEE IMMUNOCAP INTERP.IGE LAB ICG05(LOINC) <0.35 KU/L GRASS,[place] Abnormal BLUE,IGE,IC 7.24 Result Comment: SEE IMMUNOCAP INTERP.IGE LAB ICG02(LOINC) <0.35 KU/L GRASS,ROSEMARIE,IGE,IC Abnormal 7.15 Result Comment: SEE IMMUNOCAP INTERP.IGE LAB ICL03(LOINC) <0.35 KU/L LAMBS Abnormal QUARTERS,IGE,IC 6.96 Result Comment: SEE IMMUNOCAP INTERP.IGE LAB ICP11(LOINC) <0.35 KU/L PIGWEED,IGE,IC Abnormal 5.85 Result Comment: SEE IMMUNOCAP INTERP.IGE LAB ICR02(LOINC) <0.35 KU/L RAGWEED,SHORT,IGE,IC Abnormal 6.02 Result Comment: SEE IMMUNOCAP INTERP.IGE LAB ICA07(LOINC) <0.35 KU/L RAMOS,WHITE,IGE,IC Abnormal 6.59 Result Comment: SEE IMMUNOCAP INTERP.IGE LAB ICB02(LOINC) <0.35 KU/L Abnormal BIRCH,IGE,IC 2.86 Result Comment: SEE IMMUNOCAP INTERP.IGE LAB ICB08(LOINC) <0.35 KU/L BOX Abnormal ELDER,IGE,IC 5.49 Result Comment: SEE IMMUNOCAP INTERP.IGE LAB ICJ01(LOINC) <0.35 KU/L CEDAR MTN/JUNIPER,IGE,IC Abnormal 4.97 Result Comment: SEE IMMUNOCAP INTERP.IGE LAB ICC06(LOINC) <0.35 KU/L COTTONWOOD,IGE,IC Abnormal 4.71 Result Comment: SEE IMMUNOCAP INTERP.IGE LAB ICE03(LOINC) <0.35 KU/L Abnormal ELM,IGE,IC 4.86 Result Comment: SEE IMMUNOCAP INTERP.IGE LAB ICM07(LOINC) <0.35 KU/L Abnormal MULBERRY, WHITE, IGE,IC 3.60 Result Comment: SEE IMMUNOCAP INTERP.IGE LAB ICO01(LOINC) <0.35 KU/L Abnormal OAK,IGE,IC 5.95 Result Comment: SEE IMMUNOCAP INTERP.IGE LAB ICP09(LOINC) <0.35 KU/L PECAN Abnormal HICKORY,IGE,IC 3.14 Result Comment: SEE IMMUNOCAP INTERP.IGE LAB ICS04(LOINC) <0.35 KU/L SYCAMORE,MAPLE Abnormal LEAF IGE,IC 7.20 Result Comment: SEE IMMUNOCAP INTERP.IGE LAB ICW05(LOINC) <0.35 KU/L WAL[place]UT Abnormal TREE,IGE,IC 4.76 Result Comment: SEE IMMUNOCAP INTERP.IGE LAB ICR06(LOINC) <0.35 KU/L BERMUDIAN Abnormal THISTLE,IGE,IC 7.05 Result Comment: SEE IMMUNOCAP INTERP.IGE LAB ICS10(LOINC) <0.35 KU/L SHEEP Abnormal SORREL,IGE,IC 6.12 Result Comment: SEE IMMUNOCAP INTERP.IGE LAB ICC04(LOINC) <0.35 KU/L CAT EPI./DANDER,IGE,IC <0.35 Result Comment: SEE IMMUNOCAP INTERP.IGE LAB ICD04(LOINC) <0.35 KU/L DOG DANDER <0.35 IGE,IC Result Comment: SEE IMMUNOCAP INTERP.IGE LAB ICA03(LOINC) <0.35 KU/L ALTERNARIA,IGE,IC <0.35 Result Comment: SEE IMMUNOCAP INTERP.IGE LAB ICA04(LOINC) <0.35 KU/L ASPERGILUS,IGE,IC Abnormal 2.68 Result Comment: SEE IMMUNOCAP INTERP.IGE LAB ICC14(LOINC) <0.35 KU/L CLADOSPORIUM HERBARUM IGE,IC <0.35 Result Comment: SEE IMMUNOCAP INTERP.IGE LAB ICP05(LOINC) <0.35 KU/L PENICILLIUM,IGE,IC Abnormal 0.40 Result Comment: SEE IMMUNOCAP INTERP.IGE LAB ICE05(LOINC) <0.35 KU/L GERMAN Abnormal PLANTAIN,IGE,IC 5.52 Result Comment: SEE IMMUNOCAP INTERP.IGE LAB ICD02(LOINC) <0.35 KU/L D.FARINA,IGE,IC Abnormal 1.68 Result Comment: SEE IMMUNOCAP INTERP.IGE LAB ICD01(LOINC) <0.35 KU/L D.PTERONYSSINUS,IGE,IC <0.35 Result Comment: SEE IMMUNOCAP INTERP.IGE LAB ICC12(LOINC) <0.35 KU/L COCKROACH,IGE,IC Abnormal 3.07 Result Comment: SEE IMMUNOCAP INTERP.IGE LAB ICRRE(LOINC) IMMUNOCAP SEE INTERP.IGE COMMENT Result Comment: REFERENCE RANGE (IMMUNOCAP) IGE KU/L CLASS INTERPRETATION < 0.35 0 BELOW DETECTION 0.35- 0.69 1 LOW POSITIVE 0.70- 3.49 2 MODERATE POSITIVE 3.50- 17.49 3 HIGH POSITIVE 17.50- 49 4 VERY HIGH POSITIVE 50 - 99 5 VERY HIGH POSITIVE >100 6 VERY HIGH POSITIVE Performed By: #### ICPA2 #### [facility] [address] [place] [address] GLUCOSE-POCT Collected: 09/17/2018 Status: F Source: [facility] 3:52 AM [facility]ICAL [facility]ENTER REPOSITORY TYPE CODE TESTS RESULT OUT OF RANGE REFERENCE UNITS LAB GLUP(LOINC) 74 - 99 mg/dL High 130 GLUCOSE-POCT Performed By: #### GLUPO #### [facility] [address] [place] [address] GLUCOSE-POCT Collected: 09/16/2018 Status: F Source: [facility] 11:39 PM MEDICAL [facility]ENTER REPOSITORY TYPE CODE TESTS RESULT OUT OF RANGE REFERENCE UNITS LAB GLUP(LOINC) 74 - 99 mg/dL High 155 GLUCOSE-POCT Performed By: #### GLUPO #### [facility] [address] [place] [address] DAILY PROGRESS Observed: Status: COMPLETED Source: [facility] NOTE-GASTROENTEROLOGY 09/16/2018 8:10 PM MEDICAL CENTER REPOSITORY Service: Gastroenterology Subjective Data: OMAR VERA is a 78 year old Male who is Hospital Day # 4. Additional Information: The patient is feeling better he is not coughing on bringing up from that much as before he denied any chest pain dyspnea Objective Data: Objective Information: ---- Intake and Output ----- Mn/Dy/[facility] Sep 16, 2018 2:00 [id number] Sep 15, 2018 10:00 [id number] The Intake and Output Totals for the last 24 hours are: IntakeOutputNet [id number] T PRBPSpO2 [id number]/6597% Date/Time09/16 16: 16: 16: 16: 16:00 Range(36.1C - 37C ) (63 - 84 ) (17 - 18 ) (108 - 154 )/ (62 - 76 ) (95% - 98% ) As of 16-Sep-2018 08:00:00, patient is on 2 L/min of oxygen via nasal cannula. Highest temp of 37 C was recorded at 09/16 4:00 ---- Intake and Output ----- Mn[facility]Dy/[facility] Sep 16, 2018 2:00 [id number] Sep 15, 2018 10:00 [id number] The Intake and Output Totals for the last 24 hours are: IntakeOutputNet [id number] Physical Exam: Constitutional: He was sitting in a chair when I examined him he was alert and oriented. Examination of the lung showed some rales in bases but no wheezing noted he was not cyanotic. There is no peripheral cyanosis noted heart shows no murmurs abdomen exam is under more Recent Lab Results: Results: I have reviewed these laboratory results: Complete Blood Count 16-Sep-2018 06:05:00 ResultValue White Blood Cell Count 12.5 H Nucleated Erythrocyte Count 0.0 Red Blood Cell Count 3.80 L HGB 11.4 L HCT 35.7 L MCV 94 MCHC 31.9 L PLT 387 RDW-CV 13.0 Basic Metabolic Panel 16-Sep-2018 06:05:00 ResultValue Glucose, Serum 135 H NA 142 K 4.2 CL 110 H Bicarbonate, Serum 24 Anion Gap, Serum 12 BUN 36 H CREAT 1.13 GFR-Non >60 GFR- >60 Calcium, Serum 7.5 L Assessment and Plan: Assessment: We'll attempt an EGD on this patient tomorrow I discussed with the patient is negative would have it done. Subsequently I spoke with the daughter over the phone with the physician. She wanted to be sure that he should be resuscitated if he were to get any arrest or respiratory depression and that he should be intubated if this were to happen during a procedure. We will follow the family's wishes Electronic Signatures: Jacek Champion) (Signed 16-Sep-2018 20:13) Authored: Service, Subjective Data, Objective Data, Assessment and Plan, Signature/Cosignature/Attestation Last Updated: 16-Sep-2018 20:13 by Jacek Champion) GLUCOSE-POCT Collected: 09/16/2018 Status: F Source: [facility] 7:40 PM MEDICAL CENTER REPOSITORY TYPE CODE TESTS RESULT OUT OF RANGE REFERENCE UNITS LAB GLUP(LOINC) 74 - 99 mg/dL High 229 GLUCOSE-POCT Performed By: #### GLUPO #### [address] [address] GLUCOSE-POCT Collected: 09/16/2018 Status: F Source: [facility] 4:27 PM MEDICAL CENTER REPOSITORY TYPE CODE TESTS RESULT OUT OF RANGE REFERENCE UNITS LAB GLUP(LOINC) 74 - 99 mg/dL High 171 GLUCOSE-POCT Performed By: #### GLUPO #### [facility] [address] [place] [address] GLUCOSE-POCT Collected: 09/16/2018 Status: F Source: [facility] 11:25 AM MEDICAL CENTER REPOSITORY TYPE CODE TESTS RESULT OUT OF RANGE REFERENCE UNITS LAB GLUP(LOINC) 74 - 99 mg/dL High 230 GLUCOSE-POCT Performed By: #### GLUPO #### [facility] [address] [place] [id number] DAILY PROGRESS Observed: 09/16/2018 Status: COMPLETED Source: [facility] 10:05 AM [facility] CENTER MEDICINE REPOSITORY Service: General Internal Medicine Subjective Data: OMAR VERA is a 78 year old Male who is Hospital Day # 4. Additional Information: pt seen reports cough/SOB improved. remains on 2L NC. seen by GI yesterday and is agreeable to EGD/biopsy, is under the impression that this is a scar from previous GI bleed with cauterization. d/w GI, is scheduled to have EGD with biopsy tomorrow. -will be NPO after midnight and hold tomorrow's lovenox on 09/17/2018 d/w SW, PT recommending SNF. Family is considering SNF vs. HHC after discharge. Pt is Medicare and will not need pre-cert. Updates given to daughter Shanna over the phone. She is a high school science teacher and requesting if on discharge patient can go to [facility] where her is emergency medical service coordinator. Discussed living will, patient will sign it this admission with witnesses. Objective Data: Objective Information: ---- Intake and Output ----- Mn/Dy/Year TimeIntakeOutputNet Sep 15, 2018 10:00 [id number] Sep 15, 2018 2:00 [id number] The Intake and Output Totals for the last 24 hours are: IntakeOutputNet 508nullnull T PRBPSpO2 [id number]/6998% Date/Time09/16 12: 12: 12: 12: 12:00 Range(36.1C - 37C ) (63 - 82 ) (17 - 18 ) (108 - 154 )/ (60 - 76 ) (95% - 98% ) As of 16-Sep-2018 08:00:00, patient is on 2 L/min of oxygen via nasal cannula. Highest temp of 37 C was recorded at 09/16 4:00 Physical Exam: Constitutional: thin, on NC, awake/alert/oriented x3, no distress, alert and cooperative ENMT: moist mucus membranes Respiratory/Thorax: diffuse rhonchi more pronounced on left base, slightly improved today Cardiovascular: Regular, rate and rhythm, no murmurs, 2+ equal pulses of the extremities, normal S 1and S 2 Gastrointestinal: Nondistended, soft, non-tender, no rebound tenderness or guarding, no masses palpable, no organomegaly, +BS, no bruits Genitourinary: deferred Musculoskeletal: ROM intact, no joint swelling, normal strength Extremities: normal extremities, trace pedal edema , contusions or wounds, no clubbing Neurological: alert and oriented x3, no focal deficits Skin: Warm and dry, no lesions, no rashes Medication: Medications: Continuous Medications No continuous medications are active Scheduled Medications 1. Acetylcysteine 10% Inhalation: 4 mL Inhalation Every 8 Hours 2. Albuterol 2.5mg - Ipratropium 0.5 mg/ 3mL Neb Soln: 3 mL Inhalation Every 8 Hours 3. Azithromycin IV Piggy Back: 500 mg IntraVenous Piggyback Every 24 Hours 4. Codeine 10 mg - guaiFENesin 100mg per 5 mL Oral Liquid: 5 mL Oral Every 6 Hours 5. Enoxaparin SubCutaneous: 40 mg SubCutaneous Every 24 Hours 6. Insulin Lispro Mild Corrective Scale: unit(s) SubCutaneous Every 4 Hours 7. Losartan: 75 mg Oral Daily 8. methylPREDNISolone Sodium Succinate Injectable: 40 mg IntraMuscular Every 8 Hours 9. Metoprolol Succinate Extended Release: 50 mg Oral Daily 10. Pantoprazole Injectable: 40 mg IntraVenous Push Every 24 Hours 11. Piperacillin - Tazobactam 4.5 gram/Iso-osmotic 100 mL Premix IVPB: 100 mL IntraVenous Piggyback Every 6 Hours 12. Vancomycin - Pharmacy to Dose: 1 each As Specified Variable 13. Vancomycin IV Piggy Back: 1.5 gram(s) IntraVenous Piggyback Every 24 Hours PRN Medications 1. Acetaminophen: 650 mg Oral Every 4 Hours 2. Albuterol 2.5mg - Ipratropium 0.5 mg/ 3mL Neb Soln: 3 mL Inhalation Every 2 Hours 3. Dextrose 50% in Water Injectable: 25 gram(s) IntraVenous Push Every 15 Minutes 4. Glucagon Injectable: 1 mg IntraMuscular Every 15 Minutes Recent Lab Results: Results: I have reviewed these laboratory results: Complete Blood Count 16-Sep-2018 06:05:00 ResultValue White Blood Cell Count 12.5 H Nucleated Erythrocyte Count 0.0 Red Blood Cell Count 3.80 L HGB 11.4 L HCT 35.7 L MCV 94 MCHC 31.9 L PLT 387 RDW-CV 13.0 Basic Metabolic Panel 16-Sep-2018 06:05:00 ResultValue Glucose, Serum 135 H NA 142 K 4.2 CL 110 H Bicarbonate, Serum 24 Anion Gap, Serum 12 BUN 36 H CREAT 1.13 GFR-Non >60 GFR- >60 Calcium, Serum 7.5 L Radiology Results: Results: Impression: 1. There are 3 focal areas of nodular soft tissue thickening near the lesser curvature of the stomach identified similar to previous CT scan of the chest measuring up to 2.4 cm in thickness. 2 of the more anterior nodules abut the posterior wall of the stomach, however, the exact relationship to the gastric wall cannot be assessed due to streaking artifacts. Further evaluation with endoscopic ultrasound or re-attempt CT scan of the abdomen with Gastrografin contrast can be performed for better assessment. A PET-CT study can also be obtained for further evaluation as clinically warranted. 2. Near complete consolidation of the left lower lobe and associated loculated pleural effusion. Empyema in or abscess cannot be excluded. Clinical correlation recommended. Correlation with fluid aspiration suggested. Additional bibasilar lung infiltrate and/or atelectasis. 3. Suggestion of left renalcyst. 4. Previously seen gallbladder calculi obscured by streaking artifacts in the current exam. 5. Prostatomegaly. 6. Additional nonacute findings as described. CT Abdomen and Pelvis without Contrast [Sep 14 2018 8:37AM] Impression: No definite evidence of acute posttraumatic abnormality in the chest. Respiratory motion limits evaluation of the lung parenchyma. A there is moderate to severe bilateral centrilobular emphysema. Moderate bilateral cylindrical bronchiectasis with multifocal segmental and subsegmental mucoid impaction. There are bilateral tree-in-bud opacities suggesting infectious/inflammatory pneumonitis. Mildly increased bilateral interstitial markings likely reflect chronic interstitial fibrosis with or without a component of mild acute pulmonary interstitial edema. There is left lower lobe consolidation with volume loss, probably reflecting a combination of atelectasis with pneumonia or aspiration. There are calcifications within the area of consolidative left lower lobe opacity, probably reflecting old granulomas. Underlying neoplasm related to the areas of abnormal parenchymal opacity cannot be excluded. There is a small loculated left basilar pleural effusion. Empyema or malignant effusion are possibilities. Correlation with pleural fluid sampling may be helpful. No pleural effusion on the right. No pneumothorax. There are bulky gastrohepatic lymph nodes measuring up to 2.4 x 2.4 cm in transaxial diameters. There is the suggestion of a subserosal mass arising exophytically from the lesser curvature the stomach on axial images 52 and 53, poorly delineated without IV contrast but measuring at least up to 2.7 x 2.0 cm in transaxial diameters. 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 Recommend further workup with nonemergent CT abdomen and pelvis CT Chest without Contrast [Sep 13 2018 8:00PM] Impression: 1. Constellation of findings suggestive of fluid overload demonstrated by a small left pleural effusion, bilateral pulmonary edema and cardiomegaly. Xray Chest 1 View [Sep 13 2018 7:19PM] Assessment and Plan: Comorbidities: Comorbidity: acute kidney injury, sepsis... Kidney: acute renal failure Sepsis: severe sepsis Assessment: 78M with PMHx of COPD, HTN, and DM who presents due to dyspnea. Admits to productive cough, ataxia, fevers, chills, and nausea. 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 Family and patient aware of findings and agreeable to EGD/biopsy/ possible bronchoscopy. Code status changed to DNR-CCA this admission. #sepsis 2/2 HAP #HAP #acute respiratory failure 2/2 pna, requiring oxygen - weaned to 2L NC -SIRS criteria: initial leukocytosis WBC 14.8 and tachycardia, HR 124 -continue Vanc - day 4, and Zosyn for HAP, - day 3 -continue Azithromycin for atypicals, - day 3 -legionella/strep pneumonia negative, -sputum culture pleiomorphic growing gram + bacilli -mycoplasma pending -BC negative to date -continue duonebs/solu-medrol, continue mucomyst -pulm consulted : may benefit from bronchoscopy pending GI evaluation. however this can also be done as outpatient pending gastric evaluation and workup - alpha1 anti-trypsin, T-spot pending - IGE, elevated at 529. pulm holding off on steroids at this time pending gastric mass evaluation #UTI -UC growing E. faecalis -currently on vanc/zosyn, will consider de-escalating as sensitivities result #SPIKE, resolved -doing ok off IVF -Cr 1.13 today -will resume home losartan #gastric mass on lesser curvature #gastric malignancy, suspected #lymphadenopathy vs. lymph node mets, suspected -continue protonix -GI consulted: EGD with biopsy tomorrow -oncology consulted: recommend checking tumor markers . (Ca 19-9, CEA) were WNL this admission -will be NPO after midnight and hold tomorrow's lovenox on 09/17/2018 #COPD #HTN #DM2 -continue toprol XL, ISS -holding home metformin #dvt prophylaxis -lovenox, scds Code Status: DNR-CCA /DNI PT/OT: SNF Dispo: Going for EGD with biopsy tomorrow for gastric mass. currently treating for pneumonia. will likely need SNF Signature/Cosignature/Attestation: Attending AttestationI saw and evaluated the patient. I personally obtained the boykin and critical portions of the history and physical exam or was physically present for boykin and critical portions performed by the resident/fellow. I reviewed the resident/fellows documentation and discussed the patient with the resident/fellow. I agree with the resident/fellows medical decision making as documented in the residents note. I personally evaluated the patient (as noted in the above attestation) on 16-Sep-2018 Electronic Signatures: Ej Upton) (Signed 17-Sep-2018 16:51) Authored: Signature/Cosignature/Attestation Co-Signer: Subjective Data, Assessment and Plan, Signature/Cosignature/Attestation Karly Sepulveda (DO (Resident)) (Signed 16-Sep-2018 16:41) Authored: Service, Subjective Data, Objective Data, Assessment and Plan, Signature/Cosignature/Attestation Last Updated: 17-Sep-2018 16:51 by Ej Upton) DAILY PROGRESS Observed: 09/16/2018 Status: COMPLETED Source: [facility] 9:27 AM [facility] REPOSITORY Service: Pulmonology History of Present Illness: History Present Illness: HPI: 78 Gentleman according to sent with history of COPD and hypertension diabetes was recently discharged from [facility] for pneumonia, he presented with increased shortness breath, moderate to severe at rest, increased with exertion, associated thick phlegm, no hemoptysis, no fever no chills, 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 Subjective Data: OMAR VERA is a 78 year old Male who is Hospital Day # 4. Overnight Events: Acute events in the past 24 hours include Additional Information: Social breath, unable to expectorate today, had a history of bleeding ulcer in the past, to undergo EGD tomorrow for concern of gastric carcinoma/lymphoma History of venous of breath is at rest, requiring oxygen, associated with cough white in nature with difficult to expectorate. Objective Data: Objective Information: ---- Intake and Output ----- Mn/Dy/Year TimeIntakeOutputNet Sep 15, 2018 10:00 [id number] Sep 15, 2018 2:00 [id number] The Intake and Output Totals for the last 24 hours are: IntakeOutputNet [id number] Physical Exam: Constitutional: Well developed, awake/alert/oriented x3, no distress, alert and cooperative Eyes: PERRL, EOMI, clear sclera ENMT: mucous membranes moist, no apparent injury, no lesions seen [place] Score 2 Head/Neck: Neck supple, no apparent injury, thyroid without mass or tenderness, No JVD, trachea midline, no bruits Respiratory/Thorax: Bilateral air entry ,No dullness, persistent wheezing and rhonchi, normal I:E ratio Patent airways, CTAB, normal breath sounds with good chest expansion, thorax symmetric, he is on oxygen Cardiovascular: Regular, rate and rhythm, no murmurs, 2+ equal pulses of the extremities, normal S 1and S 2 Gastrointestinal: Nondistended, soft, non-tender, no rebound tenderness or guarding, no masses palpable, no organomegaly, +BS, no bruits Genitourinary: No Discharge, vesicles or other abnormalities Musculoskeletal: ROM intact, no joint swelling, normal strength Extremities: normal extremities, no cyanosis edema, contusions or wounds,mild clubbing Neurological: alert and oriented x3, intact senses, motor, response and reflexes, normal strength Breast: No masses, tenderness, no discharge or discoloration Lymphatic: No significant lymphadenopathy Psychological: Appropriate mood and behavior Skin: Warm and dry, no lesions, no rashes Medication: Medications: Continuous Medications No continuous medications are active Scheduled Medications 1. Acetylcysteine 10% Inhalation: 4 mL Inhalation Every 8 Hours 2. Albuterol 2.5mg - Ipratropium 0.5 mg/ 3mL Neb Soln: 3 mL Inhalation Every 8 Hours 3. Azithromycin IV Piggy Back: 500 mg IntraVenous Piggyback Every 24 Hours 4. Enoxaparin SubCutaneous: 40 mg SubCutaneous Every 24 Hours 5. Insulin Lispro Mild Corrective Scale: unit(s) SubCutaneous Every 4 Hours 6. Losartan: 75 mg Oral Daily 7. methylPREDNISolone Sodium Succinate Injectable: 40 mg IntraMuscular Every 8 Hours 8. Metoprolol Succinate Extended Release: 50 mg Oral Daily 9. Pantoprazole Injectable: 40 mg IntraVenous Push Every 24 Hours 10. Piperacillin - Tazobactam 4.5 gram/Iso-osmotic 100 mL Premix IVPB: 100 mL IntraVenous Piggyback Every 6 Hours 11. Vancomycin - Pharmacy to Dose: 1 each As Specified Variable 12. Vancomycin IV Piggy Back: 1.5 gram(s) IntraVenous Piggyback Every 24 Hours PRN Medications 1. Acetaminophen: 650 mg Oral Every 4 Hours 2. Albuterol 2.5mg - Ipratropium 0.5 mg/ 3mL Neb Soln: 3 mL Inhalation Every 2 Hours 3. Dextrose 50% in Water Injectable: 25 gram(s) IntraVenous Push Every 15 Minutes 4. Glucagon Injectable: 1 mg IntraMuscular Every 15 Minutes Recent Lab Results: Results: I have reviewed these laboratory results: Vancomycin Level, Random 15-Sep-2018 20:50:00 ResultValue Vancomycin Level, Random 7.8 Complete Blood Count Trending View [id number] 05:40:00 14-Sep-2018 11:25:00 White Blood Cell Count16.4 H 14.8 H Nucleated Erythrocyte Count0.0 0.0 Red Blood Cell Count3.66 L 4.00 L HGB10.9 L 12.3 L HCT34.4 L 37.3 L MCV94 93 MCHC31.7 L 33.0 [id number] 402 RDW-CV13.2 13.3 Basic Metabolic Panel 15-Sep-2018 05:40:00 ResultValue Glucose, Serum 153 H NA 141 K 3.7 CL 108 H Bicarbonate, Serum 23 Anion Gap, Serum 14 BUN 33 H CREAT 1.25 GFR-Non 56 A GFR- 68 Calcium, Serum 7.3 L Immunoglobulin E Level, Serum 15-Sep-2018 05:40:00 ResultValue Immunoglobulin E Level, Serum 529 H Rapid Influenza A + B Ag 14-Sep-2018 21:42:00 ResultValue Rapid Flu A Test NEGATIVE Rapid Flu B Test NEGATIVE Radiology Results: Results: Impression: 1. There are 3 focal areas of nodular soft tissue thickening near the lesser curvature of the stomach identified similar to previous CT scan of the chest measuring up to 2.4 cm in thickness. 2 of the more anterior nodules abut the posterior wall of the stomach, however, the exact relationship to the gastric wall cannot be assessed due to streaking artifacts. Further evaluation with endoscopic ultrasound or re-attempt CT scan of the abdomen with Gastrografin contrast can be performed for better assessment. A PET-CT study can also be obtained for further evaluation as clinically warranted. 2. Near complete consolidation of the left lower lobe and associated loculated pleural effusion. Empyema in or abscess cannot be excluded. Clinical correlation recommended. Correlation with fluid aspiration suggested. Additional bibasilar lung infiltrate and/or atelectasis. 3. Suggestion of left renalcyst. 4. Previously seen gallbladder calculi obscured by streaking artifacts in the current exam. 5. Prostatomegaly. 6. Additional nonacute findings as described. CT Abdomen and Pelvis without Contrast [Sep 14 2018 8:37AM] Impression: No definite evidence of acute posttraumatic abnormality in the chest. Respiratory motion limits evaluation of the lung parenchyma. A there is moderate to severe bilateral centrilobular emphysema. Moderate bilateral cylindrical bronchiectasis with multifocal segmental and subsegmental mucoid impaction. There are bilateral tree-in-bud opacities suggesting infectious/inflammatory pneumonitis. Mildly increased bilateral interstitial markings likely reflect chronic interstitial fibrosis with or without a component of mild acute pulmonary interstitial edema. There is left lower lobe consolidation with volume loss, probably reflecting a combination of atelectasis with pneumonia or aspiration. There are calcifications within the area of consolidative left lower lobe opacity, probably reflecting old granulomas. Underlying neoplasm related to the areas of abnormal parenchymal opacity cannot be excluded. There is a small loculated left basilar pleural effusion. Empyema or malignant effusion are possibilities. Correlation with pleural fluid sampling may be helpful. No pleural effusion on the right. No pneumothorax. There are bulky gastrohepatic lymph nodes measuring up to 2.4 x 2.4 cm in transaxial diameters. There is the suggestion of a subserosal mass arising exophytically from the lesser curvature the stomach on axial images 52 and 53, poorly delineated without IV contrast but measuring at least up to 2.7 x 2.0 cm in transaxial diameters. 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 09/15/18 Patient was able to expectorate better using the family claims methods above-mentioned His shortness breath is moderate at rest increased with exertion, associated with thick phlegm production, no reported hemoptysis, improved with bronchodilators and mucolytics. 09/16/18 Patient still having difficulty expectorating sputum, she he is on oxygen, shortness breath is moderate to severe on exertion moderate at rest, Labs, chest x-ray and CAT scans were reviewed and as outlined above, and reviewed imaging personally. 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 I will send region 5 IgE panel which will include Aspergillus specific antigens. Discussed with GI service, EGD is planned for tomorrow, primary concern is lymphoma versus carcinoma. Oxygen for saturation above 92% cnt bronchodilator therapy, mucolytic therapy with Mucomyst and hypertonic saline, incentive spirometry and flutter valve Continue on broad-spectrum IV antibiotics with IV vancomycin and Zosyn and azithromycin, Vanco trough was subtherapeutic we'll adjust dosing. Follow-up Checkt- spot Patient will benefit from bronchoscopy Bronchoscopy planned to be determined after GI workup was done, and a it could be done as an outpatient Check sputum culture Clinically bilateral bronchiectasis is suggestive of nontuberculous mycobacteria i.e. mac infection versus enzymatic deficiencies including alpha-1 antitrypsin versus ABPA Follow-up results of alpha-1 antitrypsin Discussed the case with the primary care provider team Electronic Signatures: Alberto Michel) (Signed 16-Sep-2018 09:34) Authored: Service, History of Present Illness, Subjective Data, Objective Data, Assessment and Plan, Signature/Cosignature/Attestation Last Updated: 16-Sep-2018 09:34 by Alberto Michel) GLUCOSE-POCT Collected: 09/16/2018 Status: F Source: [facility] 7:41 AM MEDICAL [facility]ENTER REPOSITORY TYPE CODE TESTS RESULT OUT OF RANGE REFERENCE UNITS LAB GLUP(LOINC) 74 - 99 mg/dL High 149 GLUCOSE-POCT Performed By: #### GLUPO #### [facility] [address] [place] [address] CBC Collected: 09/16/2018 Status: F Source: [facility] 6:05 AM MEDICAL CENTER REPOSITORY TYPE CODE TESTS RESULT OUT OF REFERENCE UNITS RANGE LAB WBCR(LOINC 4.4 - 11.3 x10E9/L ) WBC High 12.5 LAB NRBC(LOINC 0.0 - 0.0 /100 WBC ) NUCLEATED RBC 0.0 LAB RBCCT(LOIN 4.50 - 5.90 x10E12/L C) Low RBC 3.80 LAB HGB(LOINC) 13.5 - 17.5 g/dL Low HGB 11.4 LAB HCT(LOINC) 41.0 - 52.0 % Low HCT 35.7 LAB MCV(LOINC) 80 - 100 fL MCV 94 LAB MCHC2(LOIN 32.0 - 36.0 g/dL C) Low MCHC 31.9 LAB PLTCT(LOIN 150 - 450 x10E9/L C) PLT 387 LAB RDWCV(LOIN 11.5 - 14.5 % C) RDW-CV 13.0 Performed By: #### CBC #### [facility] [address] [place] [address] BASIC METABOLIC PANEL Collected: 09/16/2018 Status: F Source: [facility] 6:05 AM MEDICAL CENTER REPOSITORY TYPE CODE TESTS RESULT OUT OF REFERENCE UNITS RANGE LAB GLU(LOINC) 74 - 99 mg/dL GLUCOSE High 135 LAB SOD(LOINC) 136 - 145 mmol/L SODIUM 142 LAB K(LOINC) 3.5 - 5.3 mmol/L POTASSIUM 4.2 LAB CHLOR(LOIN 98 - 107 mmol/L C) CHLORIDE High 110 LAB BIC(LOINC) 21 - 32 mmol/L BICARBONATE 24 LAB ANGAP(LOIN 10 - 20 mmol/L C) ANION GAP 12 LAB UREA(LOINC 6 - 23 mg/dL ) UREA High NITROGEN 36 LAB CREA(LOINC 0.50 - 1.30 mg/dL ) CREATININE 1.13 LAB GFRFN(LOIN >60 mL/min/1.7 C) 3m2 GFR-NON AM. >60 LAB GFRAA(LOIN >60 mL/min/1.7 C) 3m2 GFR- AM. >60 Result Comment: CALCULATIONS OF ESTIMATED GFR ARE PERFORMED USING THE MDRD STUDY EQUATION FOR THE IDMS-TRACEABLE CREATININE METHODS. CLIN CHEM 2007;53:766-72 LAB CA(LOINC) 8.6 - 10.3 mg/dL Low CALCIUM 7.5 Performed By: #### BMP #### [facility] [address] [place] [address] CEA Collected: 09/16/2018 Status: F Source: [facility] [address] [place] [address] REPOSITORY TYPE CODE TESTS RESULT OUT OF RANGE REFERENCE UNITS LAB CEA(LOINC) ug/L CEA 1.1 Result Comment: CEA testing is performed by chemiluminescent immunoassay using the Siemens Advia Centaur. Values obtained with different analytic methods cannot be used interchangeably. . Serum CEA measurement is intended for use as an aid in the management of patients previously treated for cancer. This assay is not intended for screening or diagnosis of cancer in the general population. The results must not be used as the sole means for clinical diagnosis or patient management decisions. REF VALUES NONSMOKERS 0-2.5 SMOKERS 0-5.0 Performed By: #### CEA #### [facility] [address] [place] [address] CA19-9 Collected: 09/16/2018 Status: F Source: [facility] [address]:[address] [place] [address] REPOSITORY TYPE CODE TESTS RESULT OUT OF RANGE REFERENCE UNITS LAB CA199(LOINC 0.00 - 30.90 U/mL ) CA19-9 14.54 Result Comment: CA 19-9 testing is performed by chemiluminescent immunoassay using the Siemens Advia Centaur. Values obtained with different analytic methods cannot be used interchangeably. . Serum CA 19-9 measurement is indicated for the serial measurement of CA 19-9 to aid in the management of patients diagnosed with cancers of the exocrine pancreas. This assay is not intended for screening or diagnosis of cancer in the general population. The results must not be used as the sole means for clinical diagnosis or patient management decisions. . Patients known to be genotypically negative for the Marquis blood group antigens will be unable to produce CA 19-9 antigen, even in malignant tissue. Phenotyping for the presence of the Marquis antigen may be insufficient to detect true Marquis antigen negative individuals. . The results must not be used as the sole means for clinical diagnosis or patient management decisions. Performed By: #### CA199 #### [facility] [address] [place] [address] MYCOPLASMA IGG AB Collected: 09/16/2018 Status: F Source: [facility] [address] [place] [address] REPOSITORY TYPE CODE TESTS RESULT OUT OF REFERENCE UNITS RANGE LAB MYCOG(LOIN <=0.09 U/L C) MYCOPLASMA IGG 0.09 AB Result Comment: INTERPRETIVE INFORMATION: Mycoplasma pneumoniae Ab, IgG 0.09 U/L or less ............ Negative 0.10 - 0.32 U/L ............. Equivocal 0.33 U/L or greater ......... Positive INTERPRETIVE DATA: Over 50% of healthy adults have a relatively high background of specific M. pneumoniae IgG antibodies in their sera, probably because of past M. pneumoniae infections. Therefore, paired sera obtained with a time interval of 1 to 3 weeks are highly recommended in adults to confirm reinfection by M. pneumoniae, which is demonstrated by a significant change in IgG antibodies. A significant change is indicated if one sample is above 0.32 U/L and the other is below 0.20 U/L. Performed by [facility], [address] [place] [address] [email or web address] Jose Leach MD - Lab. Director Performed By: #### MYCOG #### [facility] [address] [place] [address] GLUCOSE-POCT Collected: 09/16/2018 Status: F Source: [facility] 4:24 AM MEDICAL CENTER REPOSITORY TYPE CODE TESTS RESULT OUT OF RANGE REFERENCE UNITS LAB GLUP(LOINC) 74 - 99 mg/dL High 126 GLUCOSE-POCT Performed By: #### GLUPO #### [facility] [address] [place] [address] GLUCOSE-POCT Collected: 09/16/2018 Status: F Source: [facility] 12:07 AM MEDICAL CENTER REPOSITORY TYPE CODE TESTS RESULT OUT OF RANGE REFERENCE UNITS LAB GLUP(LOINC) 74 - 99 mg/dL High 255 GLUCOSE-POCT Performed By: #### GLUPO #### [facility] [address] [place] [address] CLINICAL EVENT Observed: 09/15/2018 Status: UNK Source: [facility] NOTE-VANCO RPH TO DOSE 11:17 PM MEDICAL CENTER REPOSITORY Event: Topic: VANCO RPH TO DOSE Details: trough = 7.8 - not in range begin vanco 1.5 g iv daily at 0001. check vanco trough prior to 4th dose on 18 at 2300 goal trough = 15-20 - sepsis/pna Electronic Signatures: Roxy Glover (PharmD) (Signed 15-Sep-2018 23:25) Authored: Event Last Updated: 15-Sep-2018 23:25 by Roxy Glover (PharmD) VANCOMYCIN Collected: 09/15/2018 Status: F Source: [facility] 8:50 PM MEDICAL CENTER REPOSITORY TYPE CODE TESTS RESULT OUT OF REFERENCE UNITS RANGE LAB VANCU(LOIN ug/mL C) VANCOMYCIN 7.8 Result Comment: .Therapeutic Ranges: Peak: All ages: 30.0-40.0 ug/mL . Trough: Age <18y: 5.0-10.0 ug/mL . Age >/= 18y: 5.0-20.0 ug/mL . Vancomycin trough concentrations drawn immediately prior to the next dose at steady-state are preferred for monitoring patients treated with vancomycin. Ref.: Am J Health-Syst Pharm 66: 83-98, 2008. Performed By: #### VANCU #### [place] [id number] GLUCOSE-POCT Collected: 09/15/2018 Status: F Source: [facility] 7:39 PM MEDICAL CENTER REPOSITORY TYPE CODE TESTS RESULT OUT OF RANGE REFERENCE UNITS LAB GLUP(LOINC) 74 - 99 mg/dL High 306 GLUCOSE-POCT Performed By: #### GLUPO #### [place] [id number] CONSULT-GASTROENTEROLOGY Observed: Status: COMPLETED Source: [facility] 09/15/2018 5:39 PM MEDICAL CENTER REPOSITORY Service: Service: Gastroenterology History of Present Illness: HPI: Requested to see patient because of abnormal CAT scan This patient was seen and examined. He claims he has No GI Symptoms except in the Last 2 Weeks His Appetite Went down Because of the Recent Episode of Pneumonia and Cough. He Specifically Denies Any Heartburn Dysphagia Weight Loss or Any Abdominal Pains Dr. Vera was admitted at [facility] because of pneumonia and discharged. He became more short of breath and was admitted and is now thought to have bronchiectasis. He claims he had a colonoscopy done when he was 44 years of age. 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 There is no family history of colon cancer Review Family/Social History and ROS: Review Family/Social History and ROS: No family/social history has been recorded on this patient. No ROS has been documented on this patient. Constitutional: POSITIVE: Fever, Chills, Anorexia, Malaise Eyes: NEGATIVE: Blurry Vision, Drainage, Diploplia, Redness, Vision Loss/ Change Respiratory: POSITIVE: Productive Cough, Wheezing, Shortness of Breath Cardiac: NEGATIVE: Chest Pain, Dyspnea on Exertion, Orthopnea, Palpitations, Syncope Gastrointestinal: NEGATIVE: Nausea, Vomiting, Diarrhea, Constipation, Abdominal Pain Genitourinary: NEGATIVE: Discharge, Dysuria, Flank Pain, Frequency, Hematuria Musculoskeletal: NEGATIVE: Decreased ROM, Pain, Swelling, Stiffness, Weakness Neurological: NEGATIVE: Dizziness, Confusion, Headache, Seizures, Syncope Skin: NEGATIVE: Mass, Pain, Pruritus, Rash, Ulcer Endocrine: NEGATIVE: Heat Intolerance, Cold Intolerance, Sweat, Polyuria, Thirst Allergic/Immunologic: NEGATIVE: Anaphylaxis, Itchy/ Teary Eyes, Itching, Sneezing, Swelling Breast: NEGATIVE: Pain, Mass, Discharge, Nipple Itching, Gynecomastia All Other Systems: All other systems reviewed and are negative Allergies: NSAIDs: GI Bleeding contrast (specific type unknown): Unknown Objective: Objective Information: T PRBPSpO2 [id number]/[id number]% Date/Time09/15 15: 15: 15: 15: 15:25 Range(36.2C - 36.7C ) (67 - 95 ) (18 - 20 ) (106 - 150 )/ (54 - 71 ) (94% - 98% ) As of 15-Sep-2018 16:00:00, patient is on 2 L/min of oxygen via nasal cannula. ---- Intake and Output ----- Mn/Dy/Year TimeIntakeOutputNet Sep 15, 2018 2:00 [id number] Sep 15, 2018 6:00 [id number] Sep 14, 2018 10:00 [id number] The Intake and Output Totals for the last 24 hours are: IntakeOutputNet [id number] Physical Exam: Constitutional: A thin alert gentleman who looks older than his stated age Eyes: PERRL, EOMI, clear sclera ENMT: mucous membranes moist, no apparent injury, no lesions seen Head/Neck: Neck supple, no apparent injury, thyroid without mass or tenderness, No JVD, trachea midline, no bruits Respiratory/Thorax: Patient has a lot of rales particularly in in both the basis no wheezing is noted Cardiovascular: Regular, rate and rhythm, no murmurs, 2+ equal pulses of the extremities, normal S 1and S 2 Gastrointestinal: Nondistended, soft, non-tender, no rebound tenderness or guarding, no masses palpable, no organomegaly, +BS, no bruits. I don't feel any tenderness in the abdomen. No masses are felt no free fluid present Genitourinary: No Discharge, vesicles or other abnormalities Musculoskeletal: ROM intact, no joint swelling, normal strength Extremities: normal extremities, no cyanosis edema, contusions or wounds, no clubbing Neurological: No gross weaknesses note Breast: No masses, tenderness, no discharge or discoloration Lymphatic: No significant lymphadenopathy Psychological: Appears anxious Skin: Warm and dry, no lesions, no rashes Recent Lab Results: Results: I have reviewed these laboratory results: Complete Blood Count 15-Sep-2018 05:40:00 ResultValue White Blood Cell Count 16.4 H Nucleated Erythrocyte Count 0.0 Red Blood Cell Count 3.66 L HGB 10.9 L HCT 34.4 L MCV 94 MCHC 31.7 L PLT 412 RDW-CV 13.2 Basic Metabolic Panel 14-Sep-2018 16:00:00 ResultValue Glucose, Serum 214 H NA 141 K 4.2 CL 108 H Bicarbonate, Serum 24 Anion Gap, Serum 13 BUN 33 H CREAT 1.22 GFR-Non 57 A GFR- 69 Calcium, Serum 7.6 L Brain Natriuretic Peptide 13-Sep-2018 19:59:00 ResultValue Brain Natriuretic Peptide 92 Radiology Results: Results: Impression: 1. There are 3 focal areas of nodular soft tissue thickening near the lesser curvature of the stomach identified similar to previous CT scan of the chest measuring up to 2.4 cm in thickness. 2 of the more anterior nodules abut the posterior wall of the stomach, however, the exact relationship to the gastric wall cannot be assessed due to streaking artifacts. Further evaluation with endoscopic ultrasound or re-attempt CT scan of the abdomen with Gastrografin contrast can be performed for better assessment. A PET-CT study can also be obtained for further evaluation as clinically warranted. 2. Near complete consolidation of the left lower lobe and associated loculated pleural effusion. Empyema in or abscess cannot be excluded. Clinical correlation recommended. Correlation with fluid aspiration suggested. Additional bibasilar lung infiltrate and/or atelectasis. 3. Suggestion of left renalcyst. 4. Previously seen gallbladder calculi obscured by streaking artifacts in the current exam. 5. Prostatomegaly. 6. Additional nonacute findings as described. CT Abdomen and Pelvis without Contrast [Sep 14 2018 8:37AM] Impression: No definite evidence of acute posttraumatic abnormality in the chest. Respiratory motion limits evaluation of the lung parenchyma. A there is moderate to severe bilateral centrilobular emphysema. Moderate bilateral cylindrical bronchiectasis with multifocal segmental and subsegmental mucoid impaction. There are bilateral tree-in-bud opacities suggesting infectious/inflammatory pneumonitis. Mildly increased bilateral interstitial markings likely reflect chronic interstitial fibrosis with or without a component of mild acute pulmonary interstitial edema. There is left lower lobe consolidation with volume loss, probably reflecting a combination of atelectasis with pneumonia or aspiration. There are calcifications within the area of consolidative left lower lobe opacity, probably reflecting old granulomas. Underlying neoplasm related to the areas of abnormal parenchymal opacity cannot be excluded. There is a small loculated left basilar pleural effusion. Empyema or malignant effusion are possibilities. Correlation with pleural fluid sampling may be helpful. No pleural effusion on the right. No pneumothorax. There are bulky gastrohepatic lymph nodes measuring up to 2.4 x 2.4 cm in transaxial diameters. There is the suggestion of a subserosal mass arising exophytically from the lesser curvature the stomach on axial images 52 and 53, poorly delineated without IV contrast but measuring at least up to 2.7 x 2.0 cm in transaxial diameters. 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 Recommend further workup with nonemergent CT abdomen and pelvis CT Chest without Contrast [Sep 13 2018 8:00PM] Impression: 1. Constellation of findings suggestive of fluid overload demonstrated by a small left pleural effusion, bilateral pulmonary edema and cardiomegaly. Xray Chest 1 View [Sep 13 2018 7:19PM] Assessment: I don't appreciate any cervical lymph node or supraclavicular lymphadenopathy in this patient and I reviewed the CT scan. This clearly raises a question about a lesion in the stomach. I recommended an upper GI endoscopy evaluation on this patient. He had multiple questions which were answered to his satisfaction. I also discussed the case with the business specialist. We'll attempt to do a EGD on him on Thursday hopefully by that time his pulmonary situation should improve further. The differential diagnoses here would include an obvious carcinoma versus a lymphoma. Because of the latter concern a biopsy certainly should be obtained The patient wonder whether this could be a scar this seems very unlikely. There is also a good possibility that really nothing of any significance since occasionally 1 tends to get false positive CAT scans particularly of the stomach were distention etc. This note was created using [employer] dictation technology and unintended errors may first Electronic Signatures: Jacek Champion) (Signed 15-Sep-2018 17:51) Authored: Service, History of Present Illness, Review Family/Social History and ROS, Allergies, Objective, Assessment/Recommendations, Signature/Cosignature/Attestation Last Updated: 15-Sep-2018 17:51 by Jacek Champion) GLUCOSE-POCT Collected: 09/15/2018 Status: F Source: [facility] 4:24 PM MEDICAL CENTER REPOSITORY TYPE CODE TESTS RESULT OUT OF RANGE REFERENCE UNITS LAB GLUP(LOINC) 74 - 99 mg/dL High 188 GLUCOSE-POCT Performed By: #### GLUPO #### [facility] [address] [place] [address] DISCHARGE PLANNING Observed: 09/15/2018 Status: UNK Source: [facility] NOTE 3:48 PM MEDICAL CENTER REPOSITORY Patient Learning: Factors that Impact Ability to Learnhearing problems, language(1) Other Factors: Functional Screen: In the recent/past 2-4 weeks, patient or family have noticedno issues that require a rehabilitation consult at this time(2) Discharge Planning: Discharge Plannin09/15/18 SOCIAL WORK NOTE SW met with pt who is alert and oriented x3, own decision maker. Pt is a retired physician. SW explained therapy's recommendation of snf, pt not sure if he wants snf or go home with family and hhc. Pt does have good family support and willing to have hhc services in his home. Pt to talk to family. SW left a snf list in room and name of [facility] along with sw contact information. SW to follow up with pt's decision after his conversation with family Sagrario SUZANNE Gotti 09/16/18 SOCIAL WORK NOTE SW spoke to Dr and called pt's dtr Dr Shanna Vera about snf. Pt's son in law is the emergency medical service coordinator at [facility] and that would be an option for pt per family. Dr Shanna Vera is asking sw to discuss with pt on a [address] call which was done. Pt is aware of option to go to [facility], or to go to a snf in the area. Pt wants to think about this overnight, told sw he is having a scope tomorrow, and will discuss with sw tomorrow. SW to follow up as needed. Sagrario SUZANNE Gotti 09/17/18 SOCIAL WORK NOTE SW went to room to follow up on yesterdays conversation. Pt soundly sleeping, no family in room. Pt refused EGD/ biopsy today, pt being ruled out for malignancy. Pts dtr Dr Vera was going to call sw back with a determination on snf placement. Will follow for pt/family's decision pending test results and pt wishes. Therapy could not see today, was eating lunch per therapy note. Sagrario Genao CORI GANS 09/20/18 1524 SOCIAL WORK NOTE Followed up with patient to confirm discharge plan. He asked that I follow up with his daughter, Shanna. Phoned and spoke with Shanna who is agreeable with patient going to [facility]. Referral made via AC and patient was accepted. Patient is being discharged to [facility] for skilled placement. He is being transported via [facility] scheduled at 1530. Patient's daughter, Shanna, was notified of the transfer via phone. [id number] is pending in [facility]. SUZANNE Reid Final Disposition/Discharge: Disposition/Discharge Information: Discharge/Transfer Information: Discharge/Transfer Date/[id number] 16:30 Discharge Modewheelchair Transportation Methodambulance Valuables/Medications/Belongings [facility]es [facility] Electronic Signatures: Anisha Fernández (RN) (Signed 20-Sep-2018 16:45) Authored: Final Disposition/Discharge Citlalli Morgan (CAR) (Signed 20-Sep-2018 15:31) Authored: Discharge Planning Note Sagrario Genao (CAR) (Signed 17-Sep-2018 14:46) Authored: Discharge Planning Note Last Updated: 20-Sep-2018 16:45 by Anisha Fernández (GABY) References: 1. Data Referenced From 5. Education 09/14/2018 2:20 AM 2. Data Referenced From Admission Risk Screen - Adult 09/14/2018 2:20 AM GLUCOSE-POCT Collected: 09/15/2018 Status: F Source: [facility] 11:29 AM MEDICAL CENTER REPOSITORY TYPE CODE TESTS RESULT OUT OF RANGE REFERENCE UNITS LAB GLUP(LOINC) 74 - 99 mg/dL High 234 GLUCOSE-POCT Performed By: #### GLUPO #### [facility] [address] [place] [address] DAILY PROGRESS Observed: 09/15/2018 Status: COMPLETED Source: [facility] NOTE-PULMONOLOGY 9:40 AM MEDICAL CENTER REPOSITORY Service: Pulmonology History of Present Illness: History Present Illness: HPI: 78 Gentleman according to sent with history of COPD and hypertension diabetes was recently discharged from [facility] for pneumonia, he presented with increased shortness breath, moderate to severe at rest, increased with exertion, associated thick phlegm, no hemoptysis, no fever no chills, 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 Subjective Data: OMAR VERA is a 78 year old Male who is Hospital Day # 3. Overnight Events: Acute events in the past 24 hours include Additional Information: Increased expectoration, shortness breath, on O2, on multiple medications for airway clearance. Objective Data: Objective Information: ---- Intake and Output ----- Mn/Dy/Year TimeIntakeOutrehoboth mckin[facility] christ[facility] health care servicesNet Sep 15, 2018 6:00 [id number] Sep 14, 2018 10:00 [id number] Sep 14, 2018 2:00 [id number] The Intake and Output Totals for the last 24 hours are: IntakeOutputNet [id number] Physical Exam: Constitutional: Well developed, awake/alert/oriented x3, no distress, alert and cooperative Eyes: PERRL, EOMI, clear sclera ENMT: mucous membranes moist, no apparent injury, no lesions seen Mal[place] Score 2 Head/Neck: Neck supple, no apparent injury, thyroid without mass or tenderness, No JVD, trachea midline, no bruits Respiratory/Thorax: Bilateral air entry ,No dullness, mild wheezin and rhoinci, normal I:E ratio Patent airways, CTAB, normal breath sounds with good chest expansion, thorax symmetric Cardiovascular: Regular, rate and rhythm, no murmurs, 2+ equal pulses of the extremities, normal S 1and S 2 Gastrointestinal: Nondistended, soft, non-tender, no rebound tenderness or guarding, no masses palpable, no organomegaly, +BS, no bruits Genitourinary: No Discharge, vesicles or other abnormalities Musculoskeletal: ROM intact, no joint swelling, normal strength Extremities: normal extremities, no cyanosis edema, contusions or wounds,mild clubbing Neurological: alert and oriented x3, intact senses, motor, response and reflexes, normal strength Breast: No masses, tenderness, no discharge or discoloration Lymphatic: No significant lymphadenopathy Psychological: Appropriate mood and behavior Skin: Warm and dry, no lesions, no rashes Medication: Medications: Continuous Medications 1. Sodium Chloride 0.9% Infusion: 1000 mL IntraVenous <Continuous> Scheduled Medications 1. Acetylcysteine 10% Inhalation: 4 mL Inhalation Every 8 Hours 2. Albuterol 2.5mg - Ipratropium 0.5 mg/ 3mL Neb Soln: 3 mL Inhalation Every 8 Hours 3. Azithromycin IV Piggy Back: 500 mg IntraVenous Piggyback Every 24 Hours 4. Enoxaparin SubCutaneous: 40 mg SubCutaneous Every 24 Hours 5. Insulin Lispro Mild Corrective Scale: unit(s) SubCutaneous Every 4 Hours 6. methylPREDNISolone Sodium Succinate Injectable: 40 mg IntraMuscular Every 8 Hours 7. Metoprolol Succinate Extended Release: 50 mg Oral Daily 8. Pantoprazole Injectable: 40 mg IntraVenous Push Every 24 Hours 9. Piperacillin - Tazobactam 4.5 gram/Iso-osmotic 100 mL Premix IVPB: 100 mL IntraVenous Piggyback Every 6 Hours 10. Vancomycin - Pharmacy to Dose: 1 each As Specified Variable 11. Vancomycin 1 gram IVPB/ Premixed Soln 200 mL: 200 mL IntraVenous Piggyback <User Schedule> PRN Medications 1. Acetaminophen: 650 mg Oral Every 4 Hours 2. Albuterol 2.5mg - Ipratropium 0.5 mg/ 3mL Neb Soln: 3 mL Inhalation Every 2 Hours 3. Dextrose 50% in Water Injectable: 25 gram(s) IntraVenous Push Every 15 Minutes 4. Glucagon Injectable: 1 mg IntraMuscular Every 15 Minutes Recent Lab Results: Results: I have reviewed these laboratory results: Complete Blood Count 15-Sep-2018 05:40:00 ResultValue White Blood Cell Count 16.4 H Nucleated Erythrocyte Count 0.0 Red Blood Cell Count 3.66 L HGB 10.9 L HCT 34.4 L MCV 94 MCHC 31.7 L PLT 412 RDW-CV 13.2 Basic Metabolic Panel 15-Sep-2018 05:40:00 ResultValue Glucose, Serum 153 H NA 141 K 3.7 CL 108 H Bicarbonate, Serum 23 Anion Gap, Serum 14 BUN 33 H CREAT 1.25 GFR-Non 56 A GFR- 68 Calcium, Serum 7.3 L Radiology Results: Results: No Results have been selected. Please select Results from the Available Results list before marking as Reviewed. Impression: 1. There are 3 focal areas of nodular soft tissue thickening near the lesser curvature of the stomach identified similar to previous CT scan of the chest measuring up to 2.4 cm in thickness. 2 of the more anterior nodules abut the posterior wall of the stomach, however, the exact relationship to the gastric wall cannot be assessed due to streaking artifacts. Further evaluation with endoscopic ultrasound or re-attempt CT scan of the abdomen with Gastrografin contrast can be performed for better assessment. A PET-CT study can also be obtained for further evaluation as clinically warranted. 2. Near complete consolidation of the left lower lobe and associated loculated pleural effusion. Empyema in or abscess cannot be excluded. Clinical correlation recommended. Correlation with fluid aspiration suggested. Additional bibasilar lung infiltrate and/or atelectasis. 3. Suggestion of left renalcyst. 4. Previously seen gallbladder calculi obscured by streaking artifacts in the current exam. 5. Prostatomegaly. 6. Additional nonacute findings as described. CT Abdomen and Pelvis without Contrast [Sep 14 2018 8:37AM] Impression: No definite evidence of acute posttraumatic abnormality in the chest. Respiratory motion limits evaluation of the lung parenchyma. A there is moderate to severe bilateral centrilobular emphysema. Moderate bilateral cylindrical bronchiectasis with multifocal segmental and subsegmental mucoid impaction. There are bilateral tree-in-bud opacities suggesting infectious/inflammatory pneumonitis. Mildly increased bilateral interstitial markings likely reflect chronic interstitial fibrosis with or without a component of mild acute pulmonary interstitial edema. There is left lower lobe consolidation with volume loss, probably reflecting a combination of atelectasis with pneumonia or aspiration. There are calcifications within the area of consolidative left lower lobe opacity, probably reflecting old granulomas. Underlying neoplasm related to the areas of abnormal parenchymal opacity cannot be excluded. There is a small loculated left basilar pleural effusion. Empyema or malignant effusion are possibilities. Correlation with pleural fluid sampling may be helpful. No pleural effusion on the right. No pneumothorax. There are bulky gastrohepatic lymph nodes measuring up to 2.4 x 2.4 cm in transaxial diameters. There is the suggestion of a subserosal mass arising exophytically from the lesser curvature the stomach on axial images 52 and 53, poorly delineated without IV contrast but measuring at least up to 2.7 x 2.0 cm in transaxial diameters. 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 Recommend further workup with nonemergent CT abdomen and pelvis CT Chest without Contrast [Sep 13 2018 8:00PM] Impression: No evidence of acute intracranial abnormality. No acute cervical spine fracture or malalignment. CT C Spine without Contrast [Sep 13 2018 7:47PM] Impression: 1. Constellation of findings suggestive of fluid overload demonstrated by a small left pleural effusion, bilateral pulmonary edema and cardiomegaly. 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 09/15/18 Patient was able to expectorate better using the family claims methods above-mentioned His shortness breath is moderate at rest increased with exertion, associated with thick phlegm production, no reported hemoptysis, improved with bronchodilators and mucolytics. Labs, chest x-ray and CAT scans were reviewed and as outlined above, and reviewed imaging personally. Assessment #1 acute hypoxic respiratory failure #2 diffuse bronchiectasis #3 left lower lobe consolidation suggestive of pneumonia #4 bulky gastric lymph node suggestive of malignancy #5History of diabetes and hypertension #6 history of exposure to tuberculosis but negative skin test Plan Patient GI evaluation is pending, ongoing discussion with the family regarding workup, essentially to okay with GI workup. Oxygen for saturation above 92% cnt bronchodilator therapy, mucolytic therapy with Mucomyst and hypertonic saline, incentive spirometry and flutter valve Continue on broad-spectrum IV antibiotics with [facility] [place] due to the recent hospitalization with IV vancomycin and Zosyn and azithromycin Follow-up Checkt- spot Patient will benefit from bronchoscopy Bronchoscopy planned to be determined after GI workup was done, and a it could be done as an outpatient Check sputum culture Clinically bilateral bronchiectasis is suggestive of nontuberculous mycobacteria i.e. mac infection versus enzymatic deficiencies including alpha-1 antitrypsin versus ABPA Follow-up results of alpha-1 antitrypsin, IgE level Discussed the case with the primary care provider team Electronic Signatures: Alberto Michel) (Signed 15-Sep-2018 09:45) Authored: Service, History of Present Illness, Subjective Data, Objective Data, Assessment and Plan, Signature/Cosignature/Attestation Last Updated: 15-Sep-2018 09:45 by Alberto Michel) DAILY PROGRESS Observed: 09/15/2018 Status: COMPLETED Source: [facility] NOTE-HEMATOLOGY - ONCOLOGY 8:30 AM MEDICAL CENTER REPOSITORY Service: Hematology - Oncology Subjective Data: OMAR VERA is a 78 year old Male who is Hospital Day # 3. Mr. Vera is a 78 year old male with a history of COPD, HTN, DM, 30 pack year smoking history who presented with 2 weeks of worsening dyspnea, productive cough, and fever/chills/night sweats. He admits to 5# weight loss. He was treated 1 month ago for similar symptoms and at that time diagnosed with pneumonia. In the ED he was found to have hyperglycemia, CT chest showed LLL opacity, left basilar pleural effusion, emphysema/bronchiectasis, and gastrohepatic lymph nodes suspicious for gastric malignancy. 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 He quit smoking 20- 30 years ago. He has been doing well until the past month when his respiratory difficulties started. He has had no early satiety, and didn't start losing weight until the past few weeks when he developed pneumonia. He has no abdominal pain. He has regular bowel movements. He is not interested in surgery if he is found to have cancer, but would agree to chemo/radiation if cancer is diagnosed and they are recommended. Objective Data: Objective Information: ---- Intake and Output ----- Mn/Dy/Year TimeIntakeOutputNet Sep 15, 2018 6:00 [id number] Sep 14, 2018 10:00 [id number] Sep 14, 2018 2:00 [id number] The Intake and Output Totals for the last 24 hours are: IntakeOutputNet [id number] T PRBPSpO2 [id number]/5994% Date/Time09/15 8: 8: 8: 8: 8:00 Range(36.1C - 36.5C ) (67 - 95 ) (18 - 20 ) (106 - 128 )/ (54 - 66 ) (94% - 96% ) As of 15-Sep-2018 00:00:00, patient is on 2 L/min of oxygen via nasal cannula. Physical Exam: Constitutional: Well developed, awake/alert/oriented x3, no distress, alert and cooperative Eyes: PERRL, EOMI, clear sclera ENMT: mucous membranes moist, no apparent injury, no lesions seen Head/Neck: Neck supple, no apparent injury, No JVD, trachea midline, no bruits Respiratory/Thorax: Patent airways, clear to auscultation bilaterally, normal breath sounds with good chest expansion, thorax symmetric Cardiovascular: Regular, rate and rhythm, no murmurs, 2+ equal pulses of the extremities, normal S1 and S2 Gastrointestinal: Nondistended, soft, non-tender, no rebound tenderness or guarding, no masses palpable, no organomegaly, +bowel sounds, no bruits Musculoskeletal: ROM intact, no joint swelling, normal strength Extremities: normal extremities, no cyanosis, edema, contusions or wounds, no clubbing Neurological: alert and oriented x3, intact senses, motor, response and reflexes, normal strength Lymphatic: No significant lymphadenopathy Psychological: Appropriate mood and behavior Skin: Warm and dry, no lesions, no rashes Medication: Medications: Continuous Medications 1. Sodium Chloride 0.9% Infusion: 1000 mL IntraVenous <Continuous> Scheduled Medications 1. Acetylcysteine 10% Inhalation: 4 mL Inhalation Every 8 Hours 2. Albuterol 2.5mg - Ipratropium 0.5 mg/ 3mL Neb Soln: 3 mL Inhalation Every 8 Hours 3. Azithromycin IV Piggy Back: 500 mg IntraVenous Piggyback Every 24 Hours 4. Enoxaparin SubCutaneous: 40 mg SubCutaneous Every 24 Hours 5. Insulin Lispro Mild Corrective Scale: unit(s) SubCutaneous Every 4 Hours 6. methylPREDNISolone Sodium Succinate Injectable: 40 mg IntraMuscular Every 8 Hours 7. Metoprolol Succinate Extended Release: 50 mg Oral Daily 8. Pantoprazole Injectable: 40 mg IntraVenous Push Every 24 Hours 9. Piperacillin - Tazobactam 4.5 gram/Iso-osmotic 100 mL Premix IVPB: 100 mL IntraVenous Piggyback Every 6 Hours 10. Vancomycin - Pharmacy to Dose: 1 each As Specified Variable 11. Vancomycin 1 gram IVPB/ Premixed Soln 200 mL: 200 mL IntraVenous Piggyback <User Schedule> PRN Medications 1. Acetaminophen: 650 mg Oral Every 4 Hours 2. Albuterol 2.5mg - Ipratropium 0.5 mg/ 3mL Neb Soln: 3 mL Inhalation Every 2 Hours 3. Dextrose 50% in Water Injectable: 25 gram(s) IntraVenous Push Every 15 Minutes 4. Glucagon Injectable: 1 mg IntraMuscular Every 15 Minutes Recent Lab Results: Results: I have reviewed these laboratory results: Complete Blood Count Trending View [id number] 05:40:00 14-Sep-2018 11:25:00 White Blood Cell Count16.4 H 14.8 H Nucleated Erythrocyte Count0.0 0.0 Red Blood Cell Count3.66 L 4.00 L HGB10.9 L 12.3 L HCT34.4 L 37.3 L MCV94 93 MCHC31.7 L 33.0 [id number] 402 RDW-CV13.2 13.3 Rapid Influenza A + B Ag 14-Sep-2018 21:42:00 ResultValue Rapid Flu A Test NEGATIVE Rapid Flu B Test NEGATIVE Basic Metabolic Panel 14-Sep-2018 16:00:00 ResultValue Glucose, Serum 214 H NA 141 K 4.2 CL 108 H Bicarbonate, Serum 24 Anion Gap, Serum 13 BUN 33 H CREAT 1.22 GFR-Non 57 A GFR- 69 Calcium, Serum 7.6 L Legionella Antigen, Urine 13-Sep-2018 23:53:00 ResultValue Legionella Antigen, Urine NEGATIVE Arterial Full Panel 13-Sep-2018 20:10:00 ResultValue pH, Arterial 7.48 H pCO2, Arterial 32 L pO2, Arterial 132 H Patient-Temperature 37.0 FIO2 32 SO2, Arterial 99 HCT 36.0 L Sodium-Level 136 Potassium-Level 3.5 Chloride-Level 106 Calcium, Ionized-Level 1.14 Glucose-Level 163 H Lactate-Level 1.3 Base Excess-Blood 0.8 Bicarbonate, Calculated, Arterial 23.8 HGB, Calculated 12.2 L Anion Gap-Level 10 Site of Arterial Puncture R Radial Alma's Test (Collateral Circulation) Positive Apparatus Cannula PT + INR, Plasma 13-Sep-2018 19:59:00 ResultValue Prothrombin Time, Plasma 15.4 H International Normalized Ratio, Plasma 1.4 H Lactate, Level 13-Sep-2018 19:59:00 ResultValue Lactate, Level 1.6 Troponin I, Serum 13-Sep-2018 19:59:00 ResultValue Troponin I, Serum 0.02 Brain Natriuretic Peptide 13-Sep-2018 19:59:00 ResultValue Brain Natriuretic Peptide 92 Creatine Kinase, Level 13-Sep-2018 19:59:00 ResultValue Creatine Kinase, Level 35 CKMB 13-Sep-2018 19:59:00 ResultValue CKMB 1.7 Radiology Results: Results: Impression: 1. There are 3 focal areas of nodular soft tissue thickening near the lesser curvature of the stomach identified similar to previous CT scan of the chest measuring up to 2.4 cm in thickness. 2 of the more anterior nodules abut the posterior wall of the stomach, however, the exact relationship to the gastric wall cannot be assessed due to streaking artifacts. Further evaluation with endoscopic ultrasound or re-attempt CT scan of the abdomen with Gastrografin contrast can be performed for better assessment. A PET-CT study can also be obtained for further evaluation as clinically warranted. 2. Near complete consolidation of the left lower lobe and associated loculated pleural effusion. Empyema in or abscess cannot be excluded. Clinical correlation recommended. Correlation with fluid aspiration suggested. Additional bibasilar lung infiltrate and/or atelectasis. 3. Suggestion of left renalcyst. 4. Previously seen gallbladder calculi obscured by streaking artifacts in the current exam. 5. Prostatomegaly. 6. Additional nonacute findings as described. CT Abdomen and Pelvis without Contrast [Sep 14 2018 8:37AM] Impression: No definite evidence of acute posttraumatic abnormality in the chest. Respiratory motion limits evaluation of the lung parenchyma. A there is moderate to severe bilateral centrilobular emphysema. Moderate bilateral cylindrical bronchiectasis with multifocal segmental and subsegmental mucoid impaction. There are bilateral tree-in-bud opacities suggesting infectious/inflammatory pneumonitis. Mildly increased bilateral interstitial markings likely reflect chronic interstitial fibrosis with or without a component of mild acute pulmonary interstitial edema. There is left lower lobe consolidation with volume loss, probably reflecting a combination of atelectasis with pneumonia or aspiration. There are calcifications within the area of consolidative left lower lobe opacity, probably reflecting old granulomas. Underlying neoplasm related to the areas of abnormal parenchymal opacity cannot be excluded. There is a small loculated left basilar pleural effusion. Empyema or malignant effusion are possibilities. Correlation with pleural fluid sampling may be helpful. No pleural effusion on the right. No pneumothorax. There are bulky gastrohepatic lymph nodes measuring up to 2.4 x 2.4 cm in transaxial diameters. There is the suggestion of a subserosal mass arising exophytically from the lesser curvature the stomach on axial images 52 and 53, poorly delineated without IV contrast but measuring at least up to 2.7 x 2.0 cm in transaxial diameters. 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 Recommend further workup with nonemergent CT abdomen and pelvis CT Chest without Contrast [Sep 13 2018 8:00PM] Impression: No evidence of acute intracranial abnormality. No acute cervical spine fracture or malalignment. CT C Spine without Contrast [Sep 13 2018 7:47PM] Impression: No evidence of acute intracranial abnormality. No acute cervical spine fracture or malalignment. CT Head without Contrast [Sep 13 2018 7:47PM] Assessment and Plan: Assessment: 78M with hx COPD, HTN, DM< 30 pack year smoking history presents with cough/fever/chills/night sweat and CT findings concerning for malignancy. Sepsis secondary to pneumonia Pneumonia with loculated pleural effusion Emphysema SPIKE Gastrohepatic lymph node enlargement suspicious for gastric malignancy with possible pulmonary metastasis - pulmonology following - check tumor markers - recommend GI evaluation and possible endoscopic biopsy, which patient is currently agreeable to - aggressive supportive care Signature/Cosignature/Attestation: Attending AttestationI saw and evaluated the patient. I personally obtained the boykin and critical portions of the history and physical exam or was physically present for boykin and critical portions performed by the resident/fellow. I reviewed the resident/fellows documentation and discussed the patient with the resident/fellow. I agree with the resident/fellows medical decision making as documented in the resident/fellows note with the exception/addition of the following: I personally evaluated the patient (as noted in the above attestation) on 15-Sep-2018 Comments/ Additional Findings Findings on CT Scan concerning for malignancy. Await GI evaluation. Pulmonary note reviewed. Further recommendations pending biopsy results. All questions answered to the satisfaction of the patient. Electronic Signatures: Megha Gonzalez ( (Resident)) (Signed 15-Sep-2018 10:22) Authored: Service, Subjective Data, Objective Data, Assessment and Plan, Signature/Cosignature/Attestation Adilia Ontiveros () (Signed 15-Sep-2018 17:09) Authored: Signature/Cosignature/Attestation Co-Signer: Subjective Data, Assessment and Plan, Signature/Cosignature/Attestation Last Updated: 15-Sep-2018 17:09 by Adilia Ontiveros () DAILY PROGRESS Observed: 09/15/2018 Status: COMPLETED Source: [facility] NOTE-GENERAL INTERNAL 8:28 AM MEDICAL CENTER MEDICINE REPOSITORY Service: General Internal Medicine Subjective Data: OMAR VERA is a 78 year old Male who is Hospital Day # 3. Additional Information: pt seen this morning, reports SOB and some left sided chest discomfort. remains NSR on telemetry with HR 80s. Pt agreeable to EGD/biopsy pending GI recommendations. seen by pulm this AM and being evaluated for possible TB exposure. pt denies previous positive PPD test. however has received BCG vaccine. to be seen by PT/OT today. may need SNF placement after hospitalization. pt had living will filled out yesterday with family calls made to Lynn Ledesma and Dallin's office for notary services, messages left. will request [facility] to notarize the living will and signature. Objective Data: Objective Information: ---- Intake and Output ----- Mn/Dy/Year TimeIntakeOutputNet Sep 15, 2018 6:00 [id number] Sep 14, 2018 10:00 [id number] Sep 14, 2018 2:00 [id number] The Intake and Output Totals for the last 24 hours are: IntakeOutputNet [id number] T PRBPSpO2 [id number]/5994% Date/Time09/15 8: 8: 8: 8: 8:00 Range(36.1C - 36.5C ) (67 - 95 ) (18 - 20 ) (106 - 128 )/ (54 - 66 ) (94% - 96% ) As of 15-Sep-2018 00:00:00, patient is on 2 L/min of oxygen via nasal cannula. Physical Exam: Constitutional: thin, on NC, awake/alert/oriented x3, no distress, alert and cooperative ENMT: moist mucus membranes Respiratory/Thorax: diffuse rhonchi more pronounced on left base, slightly improved today Cardiovascular: Regular, rate and rhythm, no murmurs, 2+ equal pulses of the extremities, normal S 1and S 2 Gastrointestinal: Nondistended, soft, non-tender, no rebound tenderness or guarding, no masses palpable, no organomegaly, +BS, no bruits Genitourinary: deferred Musculoskeletal: ROM intact, no joint swelling, normal strength Extremities: normal extremities, no cyanosis edema, contusions or wounds, no clubbing Neurological: alert and oriented x3, no focal deficits Skin: Warm and dry, no lesions, no rashes Medication: Medications: Continuous Medications 1. Sodium Chloride 0.9% Infusion: 1000 mL IntraVenous <Continuous> Scheduled Medications 1. Acetylcysteine 10% Inhalation: 4 mL Inhalation Every 8 Hours 2. Albuterol 2.5mg - Ipratropium 0.5 mg/ 3mL Neb Soln: 3 mL Inhalation Every 8 Hours 3. Azithromycin IV Piggy Back: 500 mg IntraVenous Piggyback Every 24 Hours 4. Enoxaparin SubCutaneous: 40 mg SubCutaneous Every 24 Hours 5. Insulin Lispro Mild Corrective Scale: unit(s) SubCutaneous Every 4 Hours 6. methylPREDNISolone Sodium Succinate Injectable: 40 mg IntraMuscular Every 8 Hours 7. Metoprolol Succinate Extended Release: 50 mg Oral Daily 8. Pantoprazole Injectable: 40 mg IntraVenous Push Every 24 Hours 9. Piperacillin - Tazobactam 4.5 gram/Iso-osmotic 100 mL Premix IVPB: 100 mL IntraVenous Piggyback Every 6 Hours 10. Vancomycin - Pharmacy to Dose: 1 each As Specified Variable 11. Vancomycin 1 gram IVPB/ Premixed Soln 200 mL: 200 mL IntraVenous Piggyback <User Schedule> PRN Medications 1. Acetaminophen: 650 mg Oral Every 4 Hours 2. Albuterol 2.5mg - Ipratropium 0.5 mg/ 3mL Neb Soln: 3 mL Inhalation Every 2 Hours 3. Dextrose 50% in Water Injectable: 25 gram(s) IntraVenous Push Every 15 Minutes 4. Glucagon Injectable: 1 mg IntraMuscular Every 15 Minutes Recent Lab Results: Results: I have reviewed these laboratory results: Complete Blood Count 15-Sep-2018 05:40:00 ResultValue White Blood Cell Count 16.4 H Nucleated Erythrocyte Count 0.0 Red Blood Cell Count 3.66 L HGB 10.9 L HCT 34.4 L MCV 94 MCHC 31.7 L PLT 412 RDW-CV 13.2 Basic Metabolic Panel 15-Sep-2018 05:40:00 ResultValue Glucose, Serum 153 H NA 141 K 3.7 CL 108 H Bicarbonate, Serum 23 Anion Gap, Serum 14 BUN 33 H CREAT 1.25 GFR-Non 56 A GFR- 68 Calcium, Serum 7.3 L Radiology Results: Results: Impression: 1. There are 3 focal areas of nodular soft tissue thickening near the lesser curvature of the stomach identified similar to previous CT scan of the chest measuring up to 2.4 cm in thickness. 2 of the more anterior nodules abut the posterior wall of the stomach, however, the exact relationship to the gastric wall cannot be assessed due to streaking artifacts. Further evaluation with endoscopic ultrasound or re-attempt CT scan of the abdomen with Gastrografin contrast can be performed for better assessment. A PET-CT study can also be obtained for further evaluation as clinically warranted. 2. Near complete consolidation of the left lower lobe and associated loculated pleural effusion. Empyema in or abscess cannot be excluded. Clinical correlation recommended. Correlation with fluid aspiration suggested. Additional bibasilar lung infiltrate and/or atelectasis. 3. Suggestion of left renalcyst. 4. Previously seen gallbladder calculi obscured by streaking artifacts in the current exam. 5. Prostatomegaly. 6. Additional nonacute findings as described. CT Abdomen and Pelvis without Contrast [Sep 14 2018 8:37AM] Impression: No definite evidence of acute posttraumatic abnormality in the chest. Respiratory motion limits evaluation of the lung parenchyma. A there is moderate to severe bilateral centrilobular emphysema. Moderate bilateral cylindrical bronchiectasis with multifocal segmental and subsegmental mucoid impaction. There are bilateral tree-in-bud opacities suggesting infectious/inflammatory pneumonitis. Mildly increased bilateral interstitial markings likely reflect chronic interstitial fibrosis with or without a component of mild acute pulmonary interstitial edema. There is left lower lobe consolidation with volume loss, probably reflecting a combination of atelectasis with pneumonia or aspiration. There are calcifications within the area of consolidative left lower lobe opacity, probably reflecting old granulomas. Underlying neoplasm related to the areas of abnormal parenchymal opacity cannot be excluded. There is a small loculated left basilar pleural effusion. Empyema or malignant effusion are possibilities. Correlation with pleural fluid sampling may be helpful. No pleural effusion on the right. No pneumothorax. There are bulky gastrohepatic lymph nodes measuring up to 2.4 x 2.4 cm in transaxial diameters. There is the suggestion of a subserosal mass arising exophytically from the lesser curvature the stomach on axial images 52 and 53, poorly delineated without IV contrast but measuring at least up to 2.7 x 2.0 cm in transaxial diameters. 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 Recommend further workup with nonemergent CT abdomen and pelvis CT Chest without Contrast [Sep 13 2018 8:00PM] Impression: 1. Constellation of findings suggestive of fluid overload demonstrated by a small left pleural effusion, bilateral pulmonary edema and cardiomegaly. Xray Chest 1 View [Sep 13 2018 7:19PM] Assessment and Plan: Comorbidities: Comorbidity: acute kidney injury, sepsis... Kidney: acute renal failure Sepsis: severe sepsis Assessment: 78M with PMHx of COPD, HTN, and DM who presents due to dyspnea. Admits to productive cough, ataxia, fevers, chills, and nausea. 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 Family and patient aware of findings and agreeable to EGD/biopsy/ possible bronchoscopy. Code status changed to DNR-CCA this admission. #sepsis 2/2 HAP #HAP #acute respiratory failure 2/2 pna, requiring oxygen -stable on 3L NC, will wean as tolerated -initial leukocytosis and tachycardia, will continue IVF and Abx -continue Vanc - day 3, and Zosyn for HAP, - day 2 -continue Azithromycin for atypicals, - day 2 -legionella negative, sputum culture/strep pneumonia/mycoplasma pending -BC negative to date -continue duonebs/solu-medrol, continue mucomyst -pulm consulted : will check IGE, alpha1 anti-trypsin, T-spot . may benefit from bronchoscopy however this can also be done as outpatient pending gastric evaluation and workup #UTI -UC growing E. faecalis -currently on vanc/zosyn, will consider de-escalating as sensitivities result #SPIKE, resolved -on Ns @ 75, SPIKE resolved as Cr 1.3- > 1.2 . -will D/C Fluids today -will resume home losartan #gastric mass on lesser curvature #gastric malignancy, suspected #lymphadenopathy vs. lymph node mets, suspected -continue protonix -GI consulted, -oncology consulted: recommend checking tumor markers (Ca 19-9, CEA) #COPD #HTN #DM2 -continue toprol XL, ISS -holding home metformin #dvt prophylaxis -lovenox, scds Code Status: DNR-CCA /DNI PT/OT: SNF Dispo: will likely need EGD with biopsy this admission for gastric mass. currently treating for pneumonia. will likely need SNF Signature/Cosignature/Attestation: Attending AttestationI saw and evaluated the patient. I personally obtained the boykin and critical portions of the history and physical exam or was physically present for boykin and critical portions performed by the resident/fellow. I reviewed the resident/fellows documentation and discussed the patient with the resident/fellow. I agree with the resident/fellows medical decision making as documented in the residents note. I personally evaluated the patient (as noted in the above attestation) on 15-Sep-2018 Electronic Signatures: Ej Upton) (Signed 17-Sep-2018 16:51) Authored: Signature/Cosignature/Attestation Co-Signer: Subjective Data, Assessment and Plan, Signature/Cosignature/Attestation Karly Sepulveda (DO (Resident)) (Signed 15-Sep-2018 15:11) Authored: Service, Subjective Data, Objective Data, Assessment and Plan, Signature/Cosignature/Attestation Last Updated: 17-Sep-2018 16:51 by Ej Upton) CBC Collected: 09/15/2018 Status: F Source: [facility] 5:40 AM MEDICAL CENTER REPOSITORY TYPE CODE TESTS RESULT OUT OF REFERENCE UNITS RANGE LAB WBCR(LOINC 4.4 - 11.3 x10E9/L ) WBC High 16.4 LAB NRBC(LOINC 0.0 - 0.0 /100 WBC ) NUCLEATED RBC 0.0 LAB RBCCT(LOIN 4.50 - 5.90 x10E12/L C) Low RBC 3.66 LAB HGB(LOINC) 13.5 - 17.5 g/dL Low HGB 10.9 LAB HCT(LOINC) 41.0 - 52.0 % Low HCT 34.4 LAB MCV(LOINC) 80 - 100 fL MCV 94 LAB MCHC2(LOIN 32.0 - 36.0 g/dL C) Low MCHC 31.7 LAB PLTCT(LOIN 150 - 450 x10E9/L C) PLT 412 LAB RDWCV(LOIN 11.5 - 14.5 % C) RDW-CV 13.2 Performed By: #### CBC #### [facility] [address] [place] [address] BASIC METABOLIC PANEL Collected: 09/15/2018 Status: F Source: [facility] 5:40 AM [facility] REPOSITORY TYPE CODE TESTS RESULT OUT OF RANGE REFERENCE UNITS LAB GLU(LOINC) 74 - 99 mg/dL High GLUCOSE 153 LAB SOD(LOINC) 136 - 145 mmol/L SODIUM 141 LAB K(LOINC) 3.5 - 5.3 mmol/L POTASSIUM 3.7 LAB CHLOR(LOIN 98 - 107 mmol/L C) High CHLORIDE 108 LAB BIC(LOINC) 21 - 32 mmol/L BICARBONATE 23 LAB ANGAP(LOIN 10 - 20 mmol/L C) ANION GAP 14 LAB UREA(LOINC 6 - 23 mg/dL ) High UREA NITROGEN 33 LAB CREA(LOINC 0.50 - 1.30 mg/dL ) CREATININE 1.25 LAB GFRFN(LOIN >60 mL/min/1.7 C) 3m2 GFR-NON Abnormal AM. 56 LAB GFRAA(LOIN >60 mL/min/1.7 C) 3m2 GFR- AM. 68 Result Comment: CALCULATIONS OF ESTIMATED GFR ARE PERFORMED USING THE MDRD STUDY EQUATION FOR THE IDMS-TRACEABLE CREATININE METHODS. CLIN CHEM 2007;53:766-72 LAB CA(LOINC) 8.6 - 10.3 mg/dL Low CALCIUM 7.3 Performed By: #### BMP #### [facility] [address] [place] [address] IGE Collected: 09/15/2018 Status: F Source: [facility] 5:40 AM [facility] REPOSITORY TYPE CODE TESTS RESULT OUT OF RANGE REFERENCE UNITS LAB IGE(LOINC) 0 - 150 IU/mL High IGE 529 Performed By: #### IGE #### [facility] [address] [place] [address] T-SPOT TB Collected: 09/15/2018 Status: F Source: [facility] 5:40 AM [facility] REPOSITORY TYPE CODE TESTS RESULT OUT OF REFERENCE UNITS RANGE LAB TBSIN(LOINC Normal Value: ) Negative T-SPOT.TB Negative INTERP Result Comment: A negative test result does not exclude the possibility of exposure to or infection with Mycobacterium tuberculosis (M. tuberculosis). Patients with recent exposure to TB infected individuals exhibiting a negative T-SPOT.TB result should be considered for retesting within 6 weeks or if other relevant clinical symptoms indicate. Results from T-SPOT.TB testing must be used in conjunction with each individual's epidemiological history, current medical status, and results of other diagnostic evaluations. The T-SPOT.TB test is qualitative and results are reported as positive, borderline or negative, given that the test controls perform as expected. In line with the Centers for Disease Control and Prevention's 2010 recommendation to report quantitative measurements alongside the qualitative result, the laboratory provides spot counts for informational purposes only. The T-SPOT.TB test should not be interpreted as a quantitative test. LAB TBSPA(LOINC) PANEL 0 A SPOT COUNT LAB TBSPB(LOINC) PANEL 0 B SPOT COUNT LAB TBSNG(LOINC) NIL[NEG]CONTROL Passed SPOT COUNT LAB TBSPS(LOINC) POS CONTROL SPOT Passed COUNT Performed By: #### TSPOT #### [employer] [address] [place] [address] ALPHA-1 ANTITRYPSIN Collected: 09/15/2018 Status: F Source: [facility] PHENOTYPE 5:40 AM [facility] REPOSITORY TYPE CODE TESTS RESULT OUT OF RANGE REFERENCE UNITS LAB A1ANT(LOINC 90-200 mg/dL ) High 236 [id number] TRYPSIN Result Comment: To convert to umol/L, multiply mg/dL by 0.185 LAB A1APH(LOINC) A-1 ANTITRYP.PHENOTYPE See Note Result Comment: Unable to determine the enjba-4-hqhawjvlbye phenotype of this patient. The sample appears to have more than two opfpd-9-fnuvjjhfycf variants. Because all individuals have only two ukjny-0-xgoybwdsaql alleles, the presence of more than two zlcoz-9-wwutedoipkh variants is unexpected. This suggests that the patient has been recently transfused or has received therapeutic agents derived from human plasma. If repeat testing is necessary it is recommended that a sample be collected 21 days following the last transfusion or after discontinuing treatment with therapeutics derived from human plasma. Performed by [facility], [address] [place] [address] [email or web address], Jose Leach MD - Lab. Director Performed By: #### A1ATP #### [facility] [address] [place] [address] GLUCOSE-POCT Collected: 09/15/2018 Status: F Source: [facility] 4:00 AM [facility] REPOSITORY TYPE CODE TESTS RESULT OUT OF RANGE REFERENCE UNITS LAB GLUP(LOINC) 74 - 99 mg/dL High 177 GLUCOSE-POCT Performed By: #### GLUPO #### [address] [address] GLUCOSE-POCT Collected: 09/15/2018 Status: F Source: [facility] 12:13 AM [facility] REPOSITORY TYPE CODE TESTS RESULT OUT OF RANGE REFERENCE UNITS LAB GLUP(LOINC) 74 - 99 mg/dL High 227 GLUCOSE-POCT Performed By: #### GLUPO #### [address] [address] RAPID FLU A AND B Collected: 09/14/2018 Status: F Source: [facility] 9:42 PM MEDICAL CENTER REPOSITORY TYPE CODE TESTS RESULT OUT OF REFERENCE UNITS RANGE LAB FLUA(LOINC Negative ) INFLUENZA A AG, NEGATIVE RAPID Result Comment: A negative test result does not eliminate the possibility of influenza A or B infection as the viral level of the sample may be below the detectable limit of the test. Negative test results may be confirmed by PCR, which is performed on specimens in viral transport medium. . LAB FLUB(LOINC) Negative INFLUENZA B AG, NEGATIVE RAPID Result Comment: A negative test result does not eliminate the possibility of influenza A or B infection as the viral level of the sample may be below the detectable limit of the test. Negative test results may be confirmed by PCR, which is performed on specimens in viral transport medium. . LAB SOURCE(LOINC) Lab Specimen Source Performed By: #### FLUAB #### [address] [address] Observed: 09/14/2018 Status: F Source: [facility] 8:54 PM [facility] CULT./,[facility] REPOSITORY PATIENT: OMAR VERA LOCATION: [address]#: [id number] : 38 AGE: SEX: M ORDERED BY: ALBERTO CLAYTON SOURCE: SPUTUM COLLECTED: 09/14/18 20:54 ANTIBIOTICS AT [facility].: RECEIVED : 09/15/18 02:30 SITE: R E S U L T S GRAM STAIN FINAL 09/15/18 18:07 GRAM STAIN INDICATES SPECIMEN CONSISTS OF LOWER RESPIRATORY TRACT SECRETIONS. PREDOMINANT ORGANISM = PLEOMORPHIC GRAM (+) [facility]ACILLI. RESPIRATORY CULT./,[facility] FINAL 09/20/18 14:31 NO GROWTH, CULTURE IN PROGRESS. ISOLATE1 : Actinomyces species 4+ Organism Actinom sp Antibiotic KB INTRP Ciprofloxacin S Erythromycin S Linezolid S Penicillin S Ampicillin S Tetracycline S Trimeth/Sulfa R Vancomycin S Clindamycin S Levofloxacin S S=SUSCEPTIBLE I=INTERMEDIATE R=RESISTANT SDD=SUSCEPTIBLE DOSE DEPENDENT NS=NONSUSCEPTIBLE X=REPORTED IN ERROR Performed By: #### RESPL #### [facility] [address] [place] [address] GLUCOSE-POCT Collected: 09/14/2018 Status: F Source: [facility] 8:16 PM MEDICAL CENTER REPOSITORY TYPE CODE TESTS RESULT OUT OF RANGE REFERENCE UNITS LAB GLUP(LOINC) 74 - 99 mg/dL High 307 GLUCOSE-POCT Performed By: #### GLUPO #### [facility] [id number] [place] [address] GLUCOSE-POCT Collected: 09/14/2018 Status: F Source: [facility] 4:56 PM MEDICAL CENTER REPOSITORY TYPE CODE TESTS RESULT OUT OF RANGE REFERENCE UNITS LAB GLUP(LOINC) 74 - 99 mg/dL High 184 GLUCOSE-POCT Performed By: #### GLUPO #### [facility] [address] [place] [address] BASIC METABOLIC PANEL Collected: 09/14/2018 Status: F Source: [facility] 4:00 PM MEDICAL CENTER REPOSITORY TYPE CODE TESTS RESULT OUT OF RANGE REFERENCE UNITS LAB GLU(LOINC) 74 - 99 mg/dL High GLUCOSE 214 LAB SOD(LOINC) 136 - 145 mmol/L SODIUM 141 LAB K(LOINC) 3.5 - 5.3 mmol/L POTASSIUM 4.2 LAB CHLOR(LOIN 98 - 107 mmol/L C) High CHLORIDE 108 LAB BIC(LOINC) 21 - 32 mmol/L BICARBONATE 24 LAB ANGAP(LOIN 10 - 20 mmol/L C) ANION GAP 13 LAB UREA(LOINC 6 - 23 mg/dL ) High UREA NITROGEN 33 LAB CREA(LOINC 0.50 - 1.30 mg/dL ) CREATININE 1.22 LAB GFRFN(LOIN >60 mL/min/1.7 C) 3m2 GFR-NON Abnormal AM. 57 LAB GFRAA(LOIN >60 mL/min/1.7 C) 3m2 GFR- AM. 69 Result Comment: CALCULATIONS OF ESTIMATED GFR ARE PERFORMED USING THE MDRD STUDY EQUATION FOR THE IDMS-TRACEABLE CREATININE METHODS. CLIN CHEM 2007;53:766-72 LAB CA(LOINC) 8.6 - 10.3 mg/dL Low CALCIUM 7.6 Performed By: #### BMP #### [facility] [address] [place] [id number] DAILY PROGRESS Observed: 09/14/2018 Status: COMPLETED Source: [facility] NOTE-GENERAL INTERNAL 2:03 PM MEDICAL CENTER MEDICINE REPOSITORY Service: General Internal Medicine Subjective Data: OMAR VERA is a 78 year old Male who is Hospital Day # 2. Additional Information: pt reports he developed productive cough/F/C/left sided CP/ SOB over the last few days, which prompted ED visit. discussed CT findings of possible pneumonia and pleural effusion. d/w pulm, will possibly do bronchoscopy . sputum culture and T-spot ordered d/w pt regarding CT findings of gastric mass, possible malignancy with lypmh node mets. GI consulted. Pt stating he doesn't want a biopsy because he doesn't want to know. Has had 1 prior EGD at which time he was found to have ulcer 2/2 ASA and NSAID use. Was cauterized at the time. No prior known history of cancer. Admits to 5 lbs. weight loss in the last 2 weeks, however patient not sure how much total weight he has lost. admits to decreased appetite. former 30 pack year smoker, denies ETOH/drug use. 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 patient now agreeable to possible EGD and biopsy. code status discussed at length. family requested a living will, paperwork provided. family requesting possible SNF placement, will d/w case management tomorrow as they are not in-house currently. CODE STATUS: DNR-CCA (DNAR)/ DNI. paperwork signed and in chart/computer Objective Data: Objective Information: ---- Intake and Output ----- Mn/Dy/Year TimeIntakeOutputNet Sep 14, 2018 2:00 [id number] PRBPSpO2 [id number]% Date/Time09/14 16: 16: 16: 16: 16:00 Range(35.9C - 36.9C ) (86 - 124 ) (18 - 22 ) (112 - 178 )/ (58 - 88 ) (92% - 97% ) As of 13-Sep-2018 21:42:00, patient is on 0.2 L/min of oxygen via nasal cannula. Highest temp of 36.9 C was recorded at 09/13 18:23 Physical Exam: Constitutional: thin, on NC, awake/alert/oriented x3, no distress, alert and cooperative ENMT: moist mucus membranes Respiratory/Thorax: diffuse rhonchi more pronounced on left base, Cardiovascular: Regular, rate and rhythm, no murmurs, 2+ equal pulses of the extremities, normal S 1and S 2 Gastrointestinal: Nondistended, soft, non-tender, no rebound tenderness or guarding, no masses palpable, no organomegaly, +BS, no bruits Genitourinary: deferred Musculoskeletal: ROM intact, no joint swelling, normal strength Extremities: normal extremities, no cyanosis edema, contusions or wounds, no clubbing Neurological: alert and oriented x3, no focal deficits Skin: Warm and dry, no lesions, no rashes Medication: Medications: Continuous Medications 1. Sodium Chloride 0.9% Infusion: 1000 mL IntraVenous <Continuous> Scheduled Medications 1. Acetylcysteine 10% Inhalation: 10 mL Inhalation Every 8 Hours 2. Albuterol 2.5mg - Ipratropium 0.5 mg/ 3mL Neb Soln: 3 mL Inhalation Every 4 Hours 3. Azithromycin IV Piggy Back: 500 mg IntraVenous Piggyback Every 24 Hours 4. Enoxaparin SubCutaneous: 40 mg SubCutaneous Every 24 Hours 5. Insulin Lispro Mild Corrective Scale: unit(s) SubCutaneous Every 4 Hours 6. methylPREDNISolone Sodium Succinate Injectable: 40 mg IntraMuscular Every 8 Hours 7. Metoprolol Succinate Extended Release: 50 mg Oral Daily 8. Pantoprazole Injectable: 40 mg IntraVenous Push Every 24 Hours 9. Piperacillin - Tazobactam 4.5 gram/Iso-osmotic 100 mL Premix IVPB: 100 mL IntraVenous Piggyback Every 6 Hours 10. Vancomycin - Pharmacy to Dose: 1 each As Specified Variable 11. Vancomycin 1 gram IVPB/ Premixed Soln 200 mL: 200 mL IntraVenous Piggyback <User Schedule> PRN Medications 1. Acetaminophen: 650 mg Oral Every 4 Hours 2. Albuterol 2.5mg - Ipratropium 0.5 mg/ 3mL Neb Soln: 3 mL Inhalation Every 2 Hours 3. Dextrose 50% in Water Injectable: 25 gram(s) IntraVenous Push Every 15 Minutes 4. Glucagon Injectable: 1 mg IntraMuscular Every 15 Minutes Recent Lab Results: Results: I have reviewed these laboratory results: Basic Metabolic Panel 14-Sep-2018 16:00:00 ResultValue Glucose, Serum 214 H NA 141 K 4.2 CL 108 H Bicarbonate, Serum 24 Anion Gap, Serum 13 BUN 33 H CREAT 1.22 GFR-Non 57 A GFR- 69 Calcium, Serum 7.6 L Complete Blood Count 14-Sep-2018 11:25:00 ResultValue White Blood Cell Count 14.8 H Nucleated Erythrocyte Count 0.0 Red Blood Cell Count 4.00 L HGB 12.3 L HCT 37.3 L MCV 93 MCHC 33.0 PLT 402 RDW-CV 13.3 Legionella Antigen, Urine 13-Sep-2018 23:53:00 ResultValue Legionella Antigen, Urine NEGATIVE Urinalysis 13-Sep-2018 23:49:00 ResultValue Color, Urine YELLOW Reference Range: STRAW,YELLOW Appearance, Urine HAZY Specific Reading, Urine 1.023 pH, Urine 5.0 Protein, Urine 100 (2+) A Glucose, Urine >=500 (3+) A Blood, Urine NEGATIVE Ketones, Urine 20 (1+) A Bilirubin, Urine NEGATIVE Urobilinogen, Urine 4.0 H Nitrite, Urine NEGATIVE Leukocyte Esterase, Urine NEGATIVE Radiology Results: Results: Impression: 1. There are 3 focal areas of nodular soft tissue thickening near the lesser curvature of the stomach identified similar to previous CT scan of the chest measuring up to 2.4 cm in thickness. 2 of the more anterior nodules abut the posterior wall of the stomach, however, the exact relationship to the gastric wall cannot be assessed due to streaking artifacts. Further evaluation with endoscopic ultrasound or re-attempt CT scan of the abdomen with Gastrografin contrast can be performed for better assessment. A PET-CT study can also be obtained for further evaluation as clinically warranted. 2. Near complete consolidation of the left lower lobe and associated loculated pleural effusion. Empyema in or abscess cannot be excluded. Clinical correlation recommended. Correlation with fluid aspiration suggested. Additional bibasilar lung infiltrate and/or atelectasis. 3. Suggestion of left renalcyst. 4. Previously seen gallbladder calculi obscured by streaking artifacts in the current exam. 5. Prostatomegaly. 6. Additional nonacute findings as described. CT Abdomen and Pelvis without Contrast [Sep 14 2018 8:37AM] Impression: No definite evidence of acute posttraumatic abnormality in the chest. Respiratory motion limits evaluation of the lung parenchyma. A there is moderate to severe bilateral centrilobular emphysema. Moderate bilateral cylindrical bronchiectasis with multifocal segmental and subsegmental mucoid impaction. There are bilateral tree-in-bud opacities suggesting infectious/inflammatory pneumonitis. Mildly increased bilateral interstitial markings likely reflect chronic interstitial fibrosis with or without a component of mild acute pulmonary interstitial edema. There is left lower lobe consolidation with volume loss, probably reflecting a combination of atelectasis with pneumonia or aspiration. There are calcifications within the area of consolidative left lower lobe opacity, probably reflecting old granulomas. Underlying neoplasm related to the areas of abnormal parenchymal opacity cannot be excluded. There is a small loculated left basilar pleural effusion. Empyema or malignant effusion are possibilities. Correlation with pleural fluid sampling may be helpful. No pleural effusion on the right. No pneumothorax. There are bulky gastrohepatic lymph nodes measuring up to 2.4 x 2.4 cm in transaxial diameters. There is the suggestion of a subserosal mass arising exophytically from the lesser curvature the stomach on axial images 52 and 53, poorly delineated without IV contrast but measuring at least up to 2.7 x 2.0 cm in transaxial diameters. 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 Recommend further workup with nonemergent CT abdomen and pelvis CT Chest without Contrast [Sep 13 2018 8:00PM] Impression: 1. Constellation of findings suggestive of fluid overload demonstrated by a small left pleural effusion, bilateral pulmonary edema and cardiomegaly. Xray Chest 1 View [Sep 13 2018 7:19PM] Assessment and Plan: Comorbidities: Comorbidity: acute kidney injury, sepsis... Kidney: acute renal failure Sepsis: severe sepsis Assessment: 78M with PMHx of COPD, HTN, and DM who presents due to dyspnea. Admits to productive cough, ataxia, fevers, chills, and nausea. 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 Family and patient aware of findings and agreeable to EGD/biopsy/ possible bronchoscopy. Code status changed to DNR-CCA this admission. #sepsis 2/2 HAP #HAP #SPIKE, resolved #gastric mass on lesser curvature #COPD #HTN #DM2 #dvt prophylaxis -on Ns @ 74, SPIKE resolved as Cr 1.3- > 1.2 . -initial leukocytosis and tachycardia, will continue IVF and Abx -continue Vanc/Zosyn for HAP, - day 1 -continue Azithromycin for atypicals, -legionella mnegative, sputum culture/strep pneu,monia/mycoplasma pending -continue duonebs/solu-medrol, will add mucomyst -continue protonix -lovenox, scds -pulm consulted : will check IGE, alpha1 anti-trypsin, T-spot -GI consulted, will evaluate tomorrow -oncology consulted: recommend checking tumor markers Code Status: DNR-CCA /DNI Dispo: will likely need EGD with biopsy this admission for gastric mass. currently treating for pneumonia. will likely need SNF vs. HHC on discharge Signature/Cosignature/Attestation: Attending AttestationI saw and evaluated the patient. I personally obtained the boykin and critical portions of the history and physical exam or was physically present for boykin and critical portions performed by the resident/fellow. I reviewed the resident/fellows documentation and discussed the patient with the resident/fellow. I agree with the resident/fellows medical decision making as documented in the residents note. I personally evaluated the patient (as noted in the above attestation) on 14-Sep-2018 Electronic Signatures: Ej Upton) (Signed 17-Sep-2018 16:50) Authored: Signature/Cosignature/Attestation Co-Signer: Subjective Data, Assessment and Plan, Signature/Cosignature/Attestation Karly Sepulveda (DO (Resident)) (Signed 14-Sep-2018 18:23) Authored: Service, Subjective Data, Objective Data, Assessment and Plan, Signature/Cosignature/Attestation Last Updated: 17-Sep-2018 16:50 by Ej Upton) CONSULT-HEMATOLOGY - Observed: 09/14/2018 Status: COMPLETED Source: [facility] 12:26 PM [facility] Service: Service: Hematology - Oncology History of Present Illness: Admission Reason: Dyspnea HPI: Omar is a 78M with PMHx of COPD, HTN, and DM who presents due to dyspnea. Of note, due to patient's condition, HPI is supplemented from records on hand. Patient notes for the past two weeks he has become more dyspneic with productive cough, along with fevers and chills. As condition has worsened, family reports patient has been unable to support himself and has fallen several times. His symptoms have gotten progressively worse without relief. Family notes he was treated 1 months ago for pneumonia with similar symptoms. Denies chest pain, abdominal pain, vomiting, diarrhea, hemoptysis, edema, or orthopnea. In the ER, pt was hyperglycemic with elevated BUN and creatinine, along with elevated Alk Phos. ABG was 7.48/32/132/24. CXR was suggestive of fluid overload and b/l pulmonary edema. However, for more detail a CT chest was ordered. CT chest was significant for b/l centilobular emphysema, bronchiectasis, mucoid impaction, b/l tree-in-bud opacities, consolidative LLL opacity and left basilar pleural effusion. Also, bulky gastrohepatic lymph nodes are suspicious for gastric malignancy. Pt was also tachycardic and hypoxic on room air. He was given 30ml/kg and treated with IV abx for HCAP. Interview on September 14, 2018. The patient complained of feeling weak and tired and shortness of breath which has improved since admission. The patient denied any history of abdominal pain, nausea, vomiting, hematemesis, melena, hematochezia, hematuria, abdominal pain, jaundice. PMHx: as above PSHx: unable to obtain All: Contrast, NSAIDs Meds: see order reconciliation Social: 30 py hx of smoking FHx: denies ROS General: denies weight gain, denies loss of appetite, Admits fever, chills, night sweats. HEENT: denies headaches, dizziness, head trauma, visual changes, eye pain, tinnitus, nosebleeds, hoarseness or throat pain Respiratory: denies chest pain, Admits dyspnea, cough and denies hemoptysis Cardiovascular: denies orthopnea, paroxysmal nocturnal dyspnea and leg swelling Gastrointestinal: denies pain, nausea vomiting, diarrhea, constipation, melena or bleeding. Genitourinary: denies hematuria, frequency, urgency or dysuria Neurology: denies syncope, seizures, paralysis, paraesthesia Endocrine: denies polyuria, polydipsia, skin or hair changes, and heat or cold intolerance Musculoskeletal: denies joint pain, swelling, arthritis or myalgia Hematologic: denies bleeding, adenopathy and easy bruising Skin: denies rashes and skin discoloration Psychiatry: denies depression Review Family/Social History and ROS: Review Family/Social History and ROS: No family/social history has been recorded on this patient. Review of system as per history of present illness all others negative Allergies: NSAIDs: GI Bleeding contrast (specific type unknown): Unknown Objective: Physical Exam: Constitutional: Well developed, awake/alert/oriented x3, no distress, alert and cooperative Eyes: PERRL, EOMI, clear sclera ENMT: mucous membranes moist, no apparent injury, no lesions seen Head/Neck: Neck supple, no apparent injury, thyroid without mass or tenderness, No JVD, trachea midline, no bruits Respiratory/Thorax: Patent airways, CTAB, normal breath sounds with good chest expansion, thorax symmetric Gastrointestinal: Nondistended, soft, non-tender, no rebound tenderness or guarding, no masses palpable, no organomegaly, +BS, no bruits Genitourinary: No Discharge, vesicles or other abnormalities Musculoskeletal: ROM intact, no joint swelling, normal strength Extremities: normal extremities, no cyanosis edema, contusions or wounds, no clubbing Neurological: alert and oriented x3, intact senses, motor, response and reflexes, normal strength Breast: No masses, tenderness, no discharge or discoloration Lymphatic: No significant lymphadenopathy Psychological: Appropriate mood and behavior Skin: Warm and dry, no lesions, no rashes Medications: Medications: Continuous Medications 1. Sodium Chloride 0.9% Infusion: 1000 mL IntraVenous <Continuous> Scheduled Medications 1. Albuterol 2.5mg - Ipratropium 0.5 mg/ 3mL Neb Soln: 3 mL Inhalation Every 4 Hours 2. Azithromycin IV Piggy Back: 500 mg IntraVenous Piggyback Every 24 Hours 3. Enoxaparin SubCutaneous: 40 mg SubCutaneous Every 24 Hours 4. Insulin Lispro Mild Corrective Scale: unit(s) SubCutaneous Every 4 Hours 5. methylPREDNISolone Sodium Succinate Injectable: 40 mg IntraMuscular Every 8 Hours 6. Metoprolol Succinate Extended Release: 50 mg Oral Daily 7. Pantoprazole Injectable: 40 mg IntraVenous Push Every 24 Hours 8. Piperacillin - Tazobactam 4.5 gram/Iso-osmotic 100 mL Premix IVPB: 100 mL IntraVenous Piggyback Every 6 Hours 9. Vancomycin - Pharmacy to Dose: 1 each As Specified Variable 10. Vancomycin 1 gram IVPB/ Premixed Soln 200 mL: 200 mL IntraVenous Piggyback <User Schedule> PRN Medications 1. Acetaminophen: 650 mg Oral Every 4 Hours 2. Albuterol 2.5mg - Ipratropium 0.5 mg/ 3mL Neb Soln: 3 mL Inhalation Every 2 Hours 3. Dextrose 50% in Water Injectable: 25 gram(s) IntraVenous Push Every 15 Minutes 4. Glucagon Injectable: 1 mg IntraMuscular Every 15 Minutes Recent Lab Results: Results: I have reviewed these laboratory results: Urinalysis 13-Sep-2018 23:49:00 ResultValue Color, Urine YELLOW Reference Range: STRAW,YELLOW Appearance, Urine HAZY Specific Reading, Urine 1.023 pH, Urine 5.0 Protein, Urine 100 (2+) A Glucose, Urine >=500 (3+) A Blood, Urine NEGATIVE Ketones, Urine 20 (1+) A Bilirubin, Urine NEGATIVE Urobilinogen, Urine 4.0 H Nitrite, Urine NEGATIVE Leukocyte Esterase, Urine NEGATIVE Urinalysis, Microscopic 13-Sep-2018 23:49:00 ResultValue White Cells 5 A Red Blood Cells 1 A Epithelial Cells, Squamous <1 Mucous 2+ Hyaline Casts 1+ A Glucose_POCT 13-Sep-2018 22:58:00 ResultValue Glucose-POCT 251 H Arterial Full Panel 13-Sep-2018 20:10:00 ResultValue pH, Arterial 7.48 H pCO2, Arterial 32 L pO2, Arterial 132 H Patient-Temperature 37.0 FIO2 32 SO2, Arterial 99 HCT 36.0 L Sodium-Level 136 Potassium-Level 3.5 Chloride-Level 106 Calcium, Ionized-Level 1.14 Glucose-Level 163 H Lactate-Level 1.3 Base Excess-Blood 0.8 Bicarbonate, Calculated, Arterial 23.8 HGB, Calculated 12.2 L Anion Gap-Level 10 Site of Arterial Puncture R Radial Alma's Test (Collateral Circulation) Positive Apparatus Cannula Comprehensive Metabolic Panel 13-Sep-2018 19:59:00 ResultValue Glucose, Serum 161 H NA 138 K 3.8 CL 102 Bicarbonate, Serum 25 Anion Gap, Serum 15 BUN 29 H CREAT 1.31 H GFR-Non 53 A GFR- 64 Calcium, Serum 8.3 L ALB 2.7 L ALKP 174 H T Pro 7.7 T Bili 0.9 Alanine Aminotransferase, Serum 20 Aspartate Transaminase, Serum 28 PT + INR, Plasma 13-Sep-2018 19:59:00 ResultValue Prothrombin Time, Plasma 15.4 H International Normalized Ratio, Plasma 1.4 H Lipase, Serum 13-Sep-2018 19:59:00 ResultValue Lipase, Serum 25 Lactate, Level 13-Sep-2018 19:59:00 ResultValue Lactate, Level 1.6 Troponin I, Serum 13-Sep-2018 19:59:00 ResultValue Troponin I, Serum 0.02 Activated Partial Thromboplastin Time 13-Sep-2018 19:59:00 ResultValue Activated Partial Thromboplastin Time 29 Brain Natriuretic Peptide 13-Sep-2018 19:59:00 ResultValue Brain Natriuretic Peptide 92 Creatine Kinase, Level 13-Sep-2018 19:59:00 ResultValue Creatine Kinase, Level 35 CKMB 13-Sep-2018 19:59:00 ResultValue CKMB 1.7 Assessment: Omar is a 78M with PMHx of COPD, HTN, and DM who presents due to dyspnea. Admits to productive cough, ataxia, fevers, chills, and nausea. He was treated for pneumonia 1 month. He does not appear fluid overloaded, but thin. He is tachycardic, hypoxic, and chest CT reveals multiple opacities. CT also reveals emphysema and possible malignancy in the lungs as well as in the gastric antrum. Pt does have a 30 py history of smoking, but records are limited as his care is usually obtained elsewhere. Plan is as follows. #Sepsis: 2/ with opacities on CT, due to recent treatment will treat as HCAP #Pneumonia #Emphysema #Effusion #gastrohepatic lymph node enlargement 2/2 suspected gastric malignancy #SPIKE #DVT prophylaxis I had a long discussion with the patient and explained about significance of perigastric lymph nodes. The patient claims to have lost 5 pounds. He denies any abdominal symptoms. Physical examination revealed bronchial breathing in left lung base. The CT scan findings are suggestive of a malignancy. Consider GI evaluation with possible endoscopy and a biopsy if agreeable. Given extensive history of smoking and findings in the lung would also consider pulmonary evaluation. Consider tumor markers. The patient is reluctant to order anything right now but will consider it after discussing with the family Agree with current management Thank you for allowing me to participate in care of your patient if you have any questions specific to call me Electronic Signatures: Max Gonzalez) (Signed 14-Sep-2018 12:33) Authored: Service, History of Present Illness, Review Family/Social History and ROS, Allergies, Objective, Assessment/Recommendations, Signature/Cosignature/Attestation Last Updated: 14-Sep-2018 12:33 by Max Gonzalez) CBC Collected: 09/14/2018 Status: F Source: [facility] 11:25 AM [facility] REPOSITORY TYPE CODE TESTS RESULT OUT OF REFERENCE UNITS RANGE LAB WBCR(LOINC 4.4 - 11.3 x10E9/L ) WBC High 14.8 LAB NRBC(LOINC 0.0 - 0.0 /100 WBC ) NUCLEATED RBC 0.0 LAB RBCCT(LOIN 4.50 - 5.90 x10E12/L C) Low RBC 4.00 LAB HGB(LOINC) 13.5 - 17.5 g/dL Low HGB 12.3 LAB HCT(LOINC) 41.0 - 52.0 % Low HCT 37.3 LAB MCV(LOINC) 80 - 100 fL MCV 93 LAB MCHC2(LOIN 32.0 - 36.0 g/dL C) MCHC 33.0 LAB PLTCT(LOIN 150 - 450 x10E9/L C) PLT 402 LAB RDWCV(LOIN 11.5 - 14.5 % C) RDW-CV 13.3 Performed By: #### CBC #### [facility] [address] [place] [address] EMR ADDON Collected: 09/14/2018 Status: X Source: [facility] 10:22 AM [facility] REPOSITORY Order Comment: TEST EMR ADDON WAS CANCELLED, 09/14/2018 10:28 SPECIAL TUBES. TYPE CODE TESTS RESULT OUT OF REFERENCE UNITS RANGE LAB EMRAC(LOIN C) ADDON CONFIRMATION Canceled Performed By: #### EMRAD #### [facility] [address] [place] [address] CT ABDOMEN AND PELVIS Observed: 09/14/2018 Status: F Source: [facility] WO CONTRAST 7:56 AM [facility] REPOSIT[facility] Patient Name: OMAR VERA STUDY: CT ABDOMEN AND PELVIS WO CONTRAST; 09/14/2018 7:56 am INDICATION: Signs/Symptoms: gastric malignancy. COMPARISON: None ACCESSION NUMBER(S): [id number] ORDERING CLINICIAN: RYLEE VERMA TECHNIQUE: CT of the abdomen and pelvis was performed. Contiguous axial images were obtained at 3 mm slice thickness through the abdomen and pelvis. Coronal and sagittal reconstructions at 3 mm slice thickness were performed. No intravenous contrast was administered; positive oral contrast was given. FINDINGS: Please note that the evaluation of vessels, lymph nodes and organs is limited without intravenous contrast. There is left lung volume loss with moderate area of consolidation involving particularly the left lower lobe and lingula. There is loculated small amount of left pleural effusion adjacent to the left lung base. Mild diffuse interstitial and alveolar infiltrate within the right lower lobe and right middle lobe perihilar space. Contrast material within the stomach and loops of small bowel causing mild streaking artifacts. There is mild irregular wall thickening of the posterior wall of the distal stomach measuring up to 1.3 cm in thickness. Evaluation is limited to streaking artifacts. There are 3 focal areas of nodular soft tissue thickening near the lesser curvature of the stomach identified similar to previous CT scan of the chest measuring up to 2.4 cm in thickness. 2 of the more anterior nodules abut the posterior wall of the stomach, however, the exact relationship to the gastric wall cannot be assessed due to streaking artifacts. Liver, pancreas, bilateral adrenal glands, spleen and the right kidney are within normal limits. There is a low-attenuation lesion within the inferior pole cortex of the left kidney measuring approximately 4 cm in diameter suggestive of a cyst. No ascites or focal fluid collections. No free air. Aorta normal in caliber. Wall calcification of the distal aorta and main branches. Prostate enlarged measuring 4.0 x 4.9 cm in size. Focal prostatic calcifications. No free fluid in the pelvis. In urinary bladder incompletely distended. No bladder calculi or masses. No evidence for lymphadenopathy. Visualized appendix within normal limits. Multilevel degenerative changes of the spine but no evidence for destructive lytic or blastic bone lesions. Degenerative changes of the SI joints also seen. IMPRESSION: 1. There are 3 focal areas of nodular soft tissue thickening near the lesser curvature of the stomach identified similar to previous CT scan of the chest measuring up to 2.4 cm in thickness. 2 of the more anterior nodules abut the posterior wall of the stomach, however, the exact relationship to the gastric wall cannot be assessed due to streaking artifacts. Further evaluation with endoscopic ultrasound or re-attempt CT scan of the abdomen with Gastrografin contrast can be performed for better assessment. A PET-CT study can also be obtained for further evaluation as clinically warranted. 2. Near complete consolidation of the left lower lobe and associated loculated pleural effusion. Empyema in or abscess cannot be excluded. Clinical correlation recommended. Correlation with fluid aspiration suggested. Additional bibasilar lung infiltrate and/or atelectasis. 3. Suggestion of left renal cyst. 4. Previously seen gallbladder calculi obscured by streaking artifacts in the current exam. 5. Prostatomegaly. 6. Additional nonacute findings as described. 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 Review Family/Social History and ROS: Review Family/Social History and ROS: No family/social history has been recorded on this patient. No ROS has been documented on this patient. I have reviewed the family and social history and review of systems from the History and Physical. Social History: Smoking Status: never smoker Constitutional: NEGATIVE: Fever, Chills, Anorexia, Weight Loss, Malaise Eyes: NEGATIVE: Drainage ENMT: NEGATIVE: Nasal Discharge, Nasal Congestion, Ear Pain, Mouth Pain, Throat Pain Respiratory: POSITIVE: Productive Cough, Wheezing, Shortness of Breath; NEGATIVE: Hemoptysis Cardiac: POSITIVE: Dyspnea on Exertion, Palpitations; NEGATIVE: Chest Pain, Orthopnea, Syncope Gastrointestinal: NEGATIVE: Nausea, Vomiting, Diarrhea, Constipation, Abdominal Pain Genitourinary: NEGATIVE: Discharge, Dysuria, Flank Pain, Frequency, Hematuria Musculoskeletal: NEGATIVE: Decreased ROM, Pain, Swelling, Stiffness, Weakness Psychiatric: NEGATIVE: Mood Changes, Anxiety, Hallucinations, Sleep Changes, Suicidal Ideas Skin: NEGATIVE: Mass, Pain, Pruritus, Rash, Ulcer Allergies: NSAIDs: GI Bleeding contrast (specific type unknown): Unknown Objective: Objective Information: T PRBPSpO2 [id number]/8892% Date/Time09/13 22: 22: 22: 22: 22:42 Range(36.9C - 36.9C ) (109 - 124 ) (20 - 22 ) (150 - 178 )/ (71 - 88 ) (92% - 97% ) As of 13-Sep-2018 21:42:00, patient is on 0.2 L/min of oxygen via nasal cannula. Highest temp of 36.9 C was recorded at 09/13 18:23 Physical Exam: Constitutional: Appears ill, on oxygen at 2 L Eyes: PERRL, EOMI, clear sclera ENMT: mucous membranes moist, no apparent injury, no lesions seen Head/Neck: Neck supple, no apparent injury, thyroid without mass or tenderness, No JVD, trachea midline, no bruits Respiratory/Thorax: Rhonchi bilateral, minimal wheezing Cardiovascular: Regular, rate and rhythm, no murmurs, 2+ equal pulses of the extremities, normal S 1and S 2 Gastrointestinal: Nondistended, soft, non-tender, no rebound tenderness or guarding, no masses palpable, no organomegaly, +BS, no bruits Musculoskeletal: ROM intact, no joint swelling, normal strength Extremities: normal extremities, no cyanosis edema, contusions or wounds, mild clubbing Neurological: alert and oriented x3, intact senses, motor, response and reflexes, normal strength Lymphatic: No significant lymphadenopathy Psychological: Appropriate mood and behavior Skin: Warm and dry, no lesions, no rashes Recent Lab Results: Results: I have reviewed these laboratory results: Urinalysis 13-Sep-2018 23:49:00 ResultValue Color, Urine YELLOW Reference Range: STRAW,YELLOW Appearance, Urine HAZY Specific Reading, Urine 1.023 pH, Urine 5.0 Protein, Urine 100 (2+) A Glucose, Urine >=500 (3+) A Blood, Urine NEGATIVE Ketones, Urine 20 (1+) A Bilirubin, Urine NEGATIVE Urobilinogen, Urine 4.0 H Nitrite, Urine NEGATIVE Leukocyte Esterase, Urine NEGATIVE Urinalysis, Microscopic 13-Sep-2018 23:49:00 ResultValue White Cells 5 A Red Blood Cells 1 A Epithelial Cells, Squamous <1 Mucous 2+ Hyaline Casts 1+ A Arterial Full Panel 13-Sep-2018 20:10:00 ResultValue pH, Arterial 7.48 H pCO2, Arterial 32 L pO2, Arterial 132 H Patient-Temperature 37.0 FIO2 32 SO2, Arterial 99 HCT 36.0 L Sodium-Level 136 Potassium-Level 3.5 Chloride-Level 106 Calcium, Ionized-Level 1.14 Glucose-Level 163 H Lactate-Level 1.3 Base Excess-Blood 0.8 Bicarbonate, Calculated, Arterial 23.8 HGB, Calculated 12.2 L Anion Gap-Level 10 Site of Arterial Puncture R Radial Alma's Test (Collateral Circulation) Positive Apparatus Cannula Comprehensive Metabolic Panel 13-Sep-2018 19:59:00 ResultValue Glucose, Serum 161 H NA 138 K 3.8 CL 102 Bicarbonate, Serum 25 Anion Gap, Serum 15 BUN 29 H CREAT 1.31 H GFR-Non 53 A GFR- 64 Calcium, Serum 8.3 L ALB 2.7 L ALKP 174 H T Pro 7.7 T Bili 0.9 Alanine Aminotransferase, Serum 20 Aspartate Transaminase, Serum 28 PT + INR, Plasma 13-Sep-2018 19:59:00 ResultValue Prothrombin Time, Plasma 15.4 H International Normalized Ratio, Plasma 1.4 H Radiology Results: Results: No Results have been selected. Please select Results from the Available Results list before marking as Reviewed. Impression: No definite evidence of acute posttraumatic abnormality in the chest. Respiratory motion limits evaluation of the lung parenchyma. A there is moderate to severe bilateral centrilobular emphysema. Moderate bilateral cylindrical bronchiectasis with multifocal segmental and subsegmental mucoid impaction. There are bilateral tree-in-bud opacities suggesting infectious/inflammatory pneumonitis. Mildly increased bilateral interstitial markings likely reflect chronic interstitial fibrosis with or without a component of mild acute pulmonary interstitial edema. There is left lower lobe consolidation with volume loss, probably reflecting a combination of atelectasis with pneumonia or aspiration. There are calcifications within the area of consolidative left lower lobe opacity, probably reflecting old granulomas. Underlying neoplasm related to the areas of abnormal parenchymal opacity cannot be excluded. There is a small loculated left basilar pleural effusion. Empyema or malignant effusion are possibilities. Correlation with pleural fluid sampling may be helpful. No pleural effusion on the right. No pneumothorax. There are bulky gastrohepatic lymph nodes measuring up to 2.4 x 2.4 cm in transaxial diameters. There is the suggestion of a subserosal mass arising exophytically from the lesser curvature the stomach on axial images 52 and 53, poorly delineated without IV contrast but measuring at least up to 2.7 x 2.0 cm in transaxial diameters. 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 Labs, chest x-ray and CAT scans were reviewed and as outlined above, and reviewed imaging personally. Assessment #1 acute hypoxic respiratory failure #2 diffuse bronchiectasis #3 left lower lobe consolidation suggestive of pneumonia #4 bulky gastric lymph node suggestive of malignancy #5History of diabetes and hypertension #6 history of exposure to tuberculosis but negative skin test Plan Oxygen for saturation above 92% Initiate bronchodilator therapy, mucolytic therapy with Mucomyst and hypertonic saline, incentive spirometry and flutter valve Start patient on broad-spectrum IV antibiotics with H [place] due to the recent hospitalization with IV vancomycin and Zosyn and azithromycin Checkt- spot Patient will benefit from bronchoscopy Bronchoscopy planned to be determined after GI workup was done it could be done as an outpatient Check sputum culture Clinically bilateral bronchiectasis is suggestive of nontuberculous mycobacteria i.e. mac infection versus enzymatic deficiencies including alpha-1 antitrypsin versus ABPA Check alpha-1 antitrypsin, IgE level Discussed the case with the primary care provider team Electronic Signatures: Alberto Michel) (Signed 15-Sep-2018 09:40) Authored: Service, History of Present Illness, Review Family/Social History and ROS, Allergies, Objective, Assessment/Recommendations, Signature/Cosignature/Attestation Last Updated: 15-Sep-2018 09:40 by Alberto Michel) CLINICAL EVENT Observed: 09/14/2018 Status: UNK Source: [facility] NOTE-RPH TO DOSE 4:58 AM [facility] REPOSITORY Event: Topic: RPH TO DOSE [facility] Details: trough is scheduled for 09/16 at 2100. dosing 1 gram daily. Electronic Signatures: Syed Melo (PharmD) (Signed 14-Sep-2018 04:59) Authored: Event Last Updated: 14-Sep-2018 04:59 by Syed Melo (PharmD) HISTORY AND PHYSICAL Observed: 09/14/2018 Status: COMPLETED Source: [facility] 3:55 AM [facility] REPOSITORY History of Present Illness: Admission Reason: Dyspnea HPI: Omar is a 78M with PMHx of COPD, HTN, and DM who presents due to dyspnea. Of note, due to patient's condition, HPI is supplemented from records on hand. Patient notes for the past two weeks he has become more dyspneic with productive cough, along with fevers and chills. As condition has worsened, family reports patient has been unable to support himself and has fallen several times. His symptoms have gotten progressively worse without relief. Family notes he was treated 1 months ago for pneumonia with similar symptoms. Denies chest pain, abdominal pain, vomiting, diarrhea, hemoptysis, edema, or orthopnea. In the ER, pt was hyperglycemic with elevated BUN and creatinine, along with elevated Alk Phos. ABG was 7.48/32/132/24. CXR was suggestive of fluid overload and b/l pulmonary edema. However, for more detail a CT chest was ordered. CT chest was significant for b/l centilobular emphysema, bronchiectasis, mucoid impaction, b/l tree-in-bud opacities, consolidative LLL opacity and left basilar pleural effusion. Also, bulky gastrohepatic lymph nodes are suspicious for gastric malignancy. Pt was also tachycardic and hypoxic on room air. He was given 30ml/kg and treated with IV abx for HCAP. PMHx: as above PSHx: unable to obtain All: Contrast, NSAIDs Meds: see order reconciliation Social: 30 py hx of smoking FHx: denies ROS General: denies weight gain, denies loss of appetite, Admits fever, chills, night sweats. HEENT: denies headaches, dizziness, head trauma, visual changes, eye pain, tinnitus, nosebleeds, hoarseness or throat pain Respiratory: denies chest pain, Admits dyspnea, cough and denies hemoptysis Cardiovascular: denies orthopnea, paroxysmal nocturnal dyspnea and leg swelling Gastrointestinal: denies pain, nausea vomiting, diarrhea, constipation, melena or bleeding. Genitourinary: denies hematuria, frequency, urgency or dysuria Neurology: denies syncope, seizures, paralysis, paraesthesia Endocrine: denies polyuria, polydipsia, skin or hair changes, and heat or cold intolerance Musculoskeletal: denies joint pain, swelling, arthritis or myalgia Hematologic: denies bleeding, adenopathy and easy bruising Skin: denies rashes and skin discoloration Psychiatry: denies depression Comorbidities: Comorbid Conditionschronic obstructive pulmonary disease, hypertension COPDwith emphysema Allergies: NSAIDs: GI Bleeding contrast (specific type unknown): Unknown Objective: Objective Information: T PRBPSpO2 [id number]/8892% Date/Time09/13 22: 22: 22: 22: 22:42 Range(36.9C - 36.9C ) (109 - 124 ) (20 - 22 ) (150 - 178 )/ (71 - 88 ) (92% - 97% ) As of 13-Sep-2018 21:42:00, patient is on 0.2 L/min of oxygen via nasal cannula. Highest temp of 36.9 C was recorded at 09/13 18:23 PE General appearance: thin, not in pain or distress, in no respiratory distress HEENT: Atraumatic/normocephalic, EOMI, EMERALD, pharynx clear, moist mucosa, redness of the uvula appreciated, Neck: Supple, no jugular venous distension, lymphadenopathy, thyromegaly or carotid bruits Chest: diminished breath sounds, distant wheezing, b/l crackles and Cardiovascular: tachycardic, no murmur, rub or gallop Abdomen: Normal sounds present, soft, lax with no tenderness, no hepatosplenomegaly, and no masses Extremities: No edema. Pulses are equally present. Skin: intact, no rashes Neurologic: Alert and oriented x 3, No focal deficit Medications: Medications: Continuous Medications 1. Sodium Chloride 0.9% Infusion: 1000 mL IntraVenous <Continuous> Scheduled Medications 1. Albuterol 2.5mg - Ipratropium 0.5 mg/ 3mL Neb Soln: 3 mL Inhalation Every 4 Hours 2. Enoxaparin SubCutaneous: 40 mg SubCutaneous Every 24 Hours 3. Insulin Lispro Mild Corrective Scale: unit(s) SubCutaneous Every 4 Hours 4. methylPREDNISolone Sodium Succinate Injectable: 40 mg IntraMuscular Every 8 Hours 5. Metoprolol Succinate Extended Release: 50 mg Oral Daily 6. Pantoprazole Injectable: 40 mg IntraVenous Push Every 24 Hours 7. Piperacillin - Tazobactam 4.5 gram/Iso-osmotic 100 mL Premix IVPB: 100 mL IntraVenous Piggyback Every 6 Hours 8. Vancomycin - Pharmacy to Dose: 1 each As Specified Variable PRN Medications 1. Acetaminophen: 650 mg Oral Every 4 Hours 2. Albuterol 2.5mg - Ipratropium 0.5 mg/ 3mL Neb Soln: 3 mL Inhalation Every 2 Hours 3. Dextrose 50% in Water Injectable: 25 gram(s) IntraVenous Push Every 15 Minutes 4. Glucagon Injectable: 1 mg IntraMuscular Every 15 Minutes Recent Lab Results: Results: I have reviewed these laboratory results: Urinalysis 13-Sep-2018 23:49:00 ResultValue Color, Urine YELLOW Reference Range: STRAW,YELLOW Appearance, Urine HAZY Specific Reading, Urine 1.023 pH, Urine 5.0 Protein, Urine 100 (2+) A Glucose, Urine >=500 (3+) A Blood, Urine NEGATIVE Ketones, Urine 20 (1+) A Bilirubin, Urine NEGATIVE Urobilinogen, Urine 4.0 H Nitrite, Urine NEGATIVE Leukocyte Esterase, Urine NEGATIVE Urinalysis, Microscopic 13-Sep-2018 23:49:00 ResultValue White Cells 5 A Red Blood Cells 1 A Epithelial Cells, Squamous <1 Mucous 2+ Hyaline Casts 1+ A Glucose_POCT 13-Sep-2018 22:58:00 ResultValue Glucose-POCT 251 H Arterial Full Panel 13-Sep-2018 20:10:00 ResultValue pH, Arterial 7.48 H pCO2, Arterial 32 L pO2, Arterial 132 H Patient-Temperature 37.0 FIO2 32 SO2, Arterial 99 HCT 36.0 L Sodium-Level 136 Potassium-Level 3.5 Chloride-Level 106 Calcium, Ionized-Level 1.14 Glucose-Level 163 H Lactate-Level 1.3 Base Excess-Blood 0.8 Bicarbonate, Calculated, Arterial 23.8 HGB, Calculated 12.2 L Anion Gap-Level 10 Site of Arterial Puncture R Radial Alma's Test (Collateral Circulation) Positive Apparatus Cannula Comprehensive Metabolic Panel 13-Sep-2018 19:59:00 ResultValue Glucose, Serum 161 H NA 138 K 3.8 CL 102 Bicarbonate, Serum 25 Anion Gap, Serum 15 BUN 29 H CREAT 1.31 H GFR-Non 53 A GFR- 64 Calcium, Serum 8.3 L ALB 2.7 L ALKP 174 H T Pro 7.7 T Bili 0.9 Alanine Aminotransferase, Serum 20 Aspartate Transaminase, Serum 28 PT + INR, Plasma 13-Sep-2018 19:59:00 ResultValue Prothrombin Time, Plasma 15.4 H International Normalized Ratio, Plasma 1.4 H Lipase, Serum 13-Sep-2018 19:59:00 ResultValue Lipase, Serum 25 Lactate, Level 13-Sep-2018 19:59:00 ResultValue Lactate, Level 1.6 Troponin I, Serum 13-Sep-2018 19:59:00 ResultValue Troponin I, Serum 0.02 Activated Partial Thromboplastin Time 13-Sep-2018 19:59:00 ResultValue Activated Partial Thromboplastin Time 29 Brain Natriuretic Peptide 13-Sep-2018 19:59:00 ResultValue Brain Natriuretic Peptide 92 Creatine Kinase, Level 13-Sep-2018 19:59:00 ResultValue Creatine Kinase, Level 35 CKMB 13-Sep-2018 19:59:00 ResultValue CKMB 1.7 Radiology Results: Results: Impression: No definite evidence of acute posttraumatic abnormality in the chest. Respiratory motion limits evaluation of the lung parenchyma. A there is moderate to severe bilateral centrilobular emphysema. Moderate bilateral cylindrical bronchiectasis with multifocal segmental and subsegmental mucoid impaction. There are bilateral tree-in-bud opacities suggesting infectious/inflammatory pneumonitis. Mildly increased bilateral interstitial markings likely reflect chronic interstitial fibrosis with or without a component of mild acute pulmonary interstitial edema. There is left lower lobe consolidation with volume loss, probably reflecting a combination of atelectasis with pneumonia or aspiration. There are calcifications within the area of consolidative left lower lobe opacity, probably reflecting old granulomas. Underlying neoplasm related to the areas of abnormal parenchymal opacity cannot be excluded. There is a small loculated left basilar pleural effusion. Empyema or malignant effusion are possibilities. Correlation with pleural fluid sampling may be helpful. No pleural effusion on the right. No pneumothorax. There are bulky gastrohepatic lymph nodes measuring up to 2.4 x 2.4 cm in transaxial diameters. There is the suggestion of a subserosal mass arising exophytically from the lesser curvature the stomach on axial images 52 and 53, poorly delineated without IV contrast but measuring at least up to 2.7 x 2.0 cm in transaxial diameters. 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 Recommend further workup with nonemergent CT abdomen and pelvis CT Chest without Contrast [Sep 13 2018 8:00PM] Impression: No evidence of acute intracranial abnormality. No acute cervical spine fracture or malalignment. CT C Spine without Contrast [Sep 13 2018 7:47PM] Impression: No evidence of acute intracranial abnormality. No acute cervical spine fracture or malalignment. CT Head without Contrast [Sep 13 2018 7:47PM] Impression: 1. Constellation of findings suggestive of fluid overload demonstrated by a small left pleural effusion, bilateral pulmonary edema and cardiomegaly. Xray Chest 1 View [Sep 13 2018 7:19PM] Assessment and Plan: Assessment: Omar is a 78M with PMHx of COPD, HTN, and DM who presents due to dyspnea. Admits to productive cough, ataxia, fevers, chills, and nausea. He was treated for pneumonia 1 month. He does not appear fluid overloaded, but thin. He is tachycardic, hypoxic, and chest CT reveals multiple opacities. CT also reveals emphysema and possible malignancy in the lungs as well as in the gastric antrum. Pt does have a 30 py history of smoking, but records are limited as his care is usually obtained elsewhere. Plan is as follows. #Sepsis: 2/ with opacities on CT, due to recent treatment will treat as HCAP #Pneumonia #Emphysema #Effusion #gastrohepatic lymph node enlargement 2/ suspected gastric malignancy #SPIKE #DVT prophylaxis - Pt was recently on abx, has copd, and is septic: treat with Vanc, Zosyn, and azithromycin - blood and urine cultures - sputum culture - legionella, strep, mycoplasma antigens - Duoneb mateusz and as needed - solu-medrol 40 q8 - Pulm consulted - Oncology consulted - PPI IV q24 - npo - SPIKE suspected due to intravascular volume depeletion, start IVF NS - Lovenox 40 subcutaneous q24 Signatures/Attestation/Certification: Attending AttestationI saw and evaluated the patient. I personally obtained the boykin and critical portions of the history and physical exam or was physically present for boykin and critical portions performed by the resident/fellow. I reviewed the resident/fellows documentation and discussed the patient with the resident/fellow. I agree with the resident/fellows medical decision making as documented in the residents note. I personally evaluated the patient (as noted in the above attestation) on 14-Sep-2018 Attending Provider Inpatient Certification StatementI certify this patients need for inpatient care based on the above documentation including; the order to admit as inpatient, the anticipated length of stay, diagnosis, problem list and plan of care, and discharge plan. Electronic Signatures: Ej Upton) (Signed 17-Sep-2018 16:50) Authored: Signatures/Attestation/Certification Co-Signer: History of Present Illness, Comorbidities, Allergies, Objective, Assessment and Plan, Signatures/Attestation/Certification Rylee Verma (DO (Resident)) (Signed 14-Sep-2018 05:19) Authored: History of Present Illness, Comorbidities, Allergies, Objective, Assessment and Plan, Signatures/Attestation/Certification Last Updated: 17-Sep-2018 16:50 by Ej Upton) ADMISSION RISK SCREEN Observed: 09/14/2018 Status: UNK Source: [facility] Allergies: Allergies: NSAIDs: GI Bleeding contrast (specific type unknown): Unknown Patient Verification: New W ID Band Applied in my Departmentyes Patient Identity Verified Bypatient ID Band FULL Name, include Middle, spelling matches patient's ID used for verificationyes ID Band Matches Patient ID used for Verficationyes ID Band MRN Matches EMR MRNyes Advance Directive: Advance Directive Medicalno (1) Advance Directive Information Givenpatient/family declined Falls Screen: Type of Assessmentadmission High Risk Factorsgait instability, recent falls Risk for Injury Associated with Fallnone Fall Risk Conclusionhigh falls risk with low risk for associated injury [place] Safety InterventionsWDL *orient to call system *instruct to call for assistance before getting out of bed *non-slip footwear when patient is out of bed *call justice in reach *personal items and telephone in reach *physically safe environment (no spills or clutter) *bed in lowest position with wheels locked *appropriate side rails in place *room/bathroom lighting operational, light cord in reach *appropriate signage on door Family Violence Screen: Are you or have you been threatened or abused physically, emotionally, or sexually by anyoneno Has anyone ever threatened to hurt your family or your petsno Does anyone try to keep you from having/contacting other friends or doing things outside your homeno Do you feel UNSAFE going back to the place where you are livingno Do you feel anyone has exploited or taken advantage of you financially or of your personal propertyno Clinical assessment: Are there any apparent signs of injuries/behaviors that could be related to abuse/neglectno Social Service Consult for abuse/neglect needed this visitno Functional screen: Functional Screen: In the recent/past 2-4 weeks, patient or family have noticedno issues that require a rehabilitation consult at this time Learning Assessment (Patient): Patient is Able to be Assessed for Learningyes Factors Influencing Readiness to Learnn/a Factors that Impact Ability to Learnhearing problems, language Devices/Methods Used to Communicateglasses, hearing aids Learning Preferencesverbal instruction; written material Cultural Considerationsnone Developmental Considerationsnone Sabianism Considerationsnone Learning Assessment (Other Learner): Other learner availableno Suicide/Depression Screen: During the past month, have you often been bothered by feeling down, depressed or hopelessno (1) During the past month, have you often had little interest or pleasure in doing thingsno (1) Have you had any thoughts of harming yourselfno (1) Have you had any thoughts of harming anyone elseno (1) Adult Nutrition Screen: Have you recently lost weight without tryingno Have you been eating poorly because of a decreased appetiteno MST Score0 RiskMST = 0 or 1 Not at risk. Eating well with little or no weight loss Nutrition Consult needed this visitno Can Patient Participate in Room Serviceyes Patient requires Paper Dishes/Plastic Utensilsno Pain Screen: Pain Scalenumerical 0-10 Pain Scale Educationteaching provided Current Pain Level3 = Mild Acceptable Pain Level2 = Mild Expression of Pain (nonverbal)none Chronic Painno Spiritual Screen: Are there any cultural, spiritual, oriental orthodox practices/values/needs that are important for us to knowno Do you want a visit/item from [facility] Would you like your Screw Supervisor/Postbed Stitcher notifiedno CAGE: Is this an injured patient at a Trauma Center ([facility] / [facility]): no (1) Vaccinations: Vaccination - Influenza Vaccination Screen: Is it flu season (between and )Yes Screening for identified contraindications to influenza vaccinationpatient already received vaccine this season Vaccination - Pneumonia Vaccination Screen: Patient has received a previous pneumonia vaccine:yes Hector: Skin - Hector Scale: Hector: Sensory Perception (response to environment)(3) slightly limited Hector: Moisture (degree skin exposed to moisture)(4) rarely moist Hector: Activity (ability to walk)(3) walks occasionally Hector: Mobility (amount/control of body movement)(3) slightly limited Hector: Nutrition (quality of food intake)(3) adequate Hector: Friction and Shear(3) no apparent problem Hector: Score19 Significant Indicatiors: Significant Indicators: Complete Pressure Injury: Pressure Injury Present on Admissionno Electronic Signatures: Anisha Fernández) (Signed 14-Sep-2018 02:23) Authored: Admission Risk Screens, Vaccinations, Hector, Pressure Injury Last Updated: 14-Sep-2018 02:23 by Anisha Fernández (RN) References: 1. Data Referenced From Risk Screen - Adult Emergency 09/13/2018 6:52 PM PATIENT PROFILE - Observed: 09/14/2018 Status: UNK Source: [facility]ULT V2 2:16 AM [facility]ICAL CENTER REPOSITORY Profile: Initial Info: How to be AddressedDuck Spoken Language PreferredEnglish (1) Source of Informationpatient Are you currently using the Personal Electronic Health Record or AppDirect Stated Reason for Admissionfever chills cough Arrived Fromemergency department Employment Statusretired Patient Belongingsnone; remains with patient Patient Belongings Remaining with Patientclothing; cell phone/electronics Medications Brought to Hospitalno General Health: Weight in kg65.9 kilogram(s) Weight in dkj345.2 pound(s) Height in feet5 feet Height in inches7 inch(es) Height in cm170.1 centimeter(s) BMI (kg/m2)22.775 square meter Weight Methodactual (measured) Scale Typestanding Height Methodstated RSP Based Care: How would you like to participate in your carekeep updated with plan of care What is the number one concern for you during this hospitalizationto feel better What is the most important thing we can do to support you during this hospitalizationkeep updated Is there anything we need to know to best care for youno Substance: Current or Former Substance Use never: e-Cigarette/Vaping, Street Drugs YES: Cigarette/Tobacco, Alcohol Tobacco Cessation Education (provide if tobacco use within the last 12 mos)not applicable Other Tobacco Use Commentsquit many years ago Alcohol Use Statuscurrent alcohol Alcohol Use Additional Commentsrarely/social drinker Health Mgmt: Symptoms/Conditions Managed at Homenone Barriers to Managing Healthnone Relationship/Environ: Primary Source of Support/Comfortspouse Lives Withspouse Living Arrangementshouse Significant Exposurenone Resource/Environmental Concernsnone [facility] Anticipated at Transitionnone Significant IndicatorsComplete Information Review: Allergies, Home Meds and Significant Events have been Reviewed and Verified with Patient/Familyyes ALLERGY, INTOLERANCE, ADVERSE EVENT: Allergies: NSAIDs: Drug Category, GI Bleeding, Active contrast (specific type unknown): Contrast, Unknown, Active Electronic Signatures: Anisha Fernández (GABY) (Signed 14-Sep-2018 02:19) Authored: Profile, Additional Information Last Updated: 14-Sep-2018 02:19 by Anisha Fernández (GABY) References: 1. Data Referenced From Triage - ED 09/13/2018 6:23 PM LEGIONELLA AG, URINE Collected: 09/13/2018 Status: F Source: [facility] 11:53 PM MEDICAL CENTER REPOSITORY TYPE CODE TESTS RESULT OUT OF REFERENCE UNITS RANGE LAB LEGUR(LOIN Negative C) LEGIONELLA AG, NEGATIVE URINE Result Comment: NEGATIVE FOR LEGIONELLA PNEUMOPHILIA SEROGROUP 1 ANTIGEN IN URINE, SUGGESTING NO CURRENT OR PAST INFECTION. LAB SOURCE(LOINC) Lab Specimen Source Performed By: #### LEGUR #### [facility] [address] [place] [address] URINALYSIS Collected: 09/13/2018 Status: F Source: [facility] 11:49 [facility] REPOSITORY TYPE CODE TESTS RESULT OUT OF RANGE REFERENCE UNITS LAB COLU(LOIN STRAW,YELLOW C) COLOR YELLOW LAB APPRU(TAE CLEAR NC) APPEARANCE HAZY LAB SPGRU(TAE 1.005 - 1.035 NC) SPECIFIC GRAVITY 1.023 LAB EMILY(LOINC 5.0 - 8.0 ) pH 5.0 LAB PROTU(TAE NEGATIVE mg/dL NC) PROTEIN Abnormal 100 (2+) LAB GLUCU(TAE NEGATIVE mg/dL NC) GLUCOSE Abnormal >=500 (3+) LAB BLDU(LOIN NEGATIVE C) BLOOD NEGATIVE LAB KETU(LOIN NEGATIVE mg/dL C) KETONES Abnormal 20 (1+) LAB BILIU(TAE NEGATIVE NC) BILIRUBIN NEGATIVE LAB UROU2(TAE 0.0 - 1.9 mg/dL NC) High UROBILINOGEN 4.0 Result Comment: SOME PIGMENTS AND MEDICATIONS MAY CAUSE A FALSE POSITIVE UROBILINOGEN LAB NITRU(LOINC) NEGATIVE NITRITE NEGATIVE LAB LEUKU(LOINC) NEGATIVE LEUKOCYTE NEGATIVE ESTERASE Performed By: #### UA #### [facility] [address] [place] [address] UA MICROSCOPIC Collected: 09/13/2018 Status: F Source: [facility] 11:49 PM [facility]ICAL [facility]ENTER REPOSITORY TYPE CODE TESTS RESULT OUT OF RANGE REFERENCE UNITS LAB WBCUR(LOIN 0-5 /HPF C) Abnormal WBC 5 LAB RBCUR(LOIN 0-5 /HPF C) Abnormal RBC 1 LAB EPSQE(LOIN /HPF C) SQUAMOUS <1 EPITH. CELLS LAB MUCOU(LOIN /LPF C) MUCUS 2+ LAB HYCUR(LOIN /LPF C) Abnormal HYALINE CAST 1+ Performed By: #### UAMIC #### [facility] [address] [place] [address] S.PNEUMONIAE AG,U Collected: 09/13/2018 Status: F Source: [facility] 11:49 PM [facility] REPOSITORY TYPE CODE TESTS RESULT OUT OF REFERENCE UNITS RANGE LAB SPNAG(LOINC Negative ) Negative S.PNEUMONIAE AG,U Result Comment: INTERPRETIVE INFORMATION: Streptococcus pneumoniae Ag, Urine False-positives may occur because of cross-reactivity with other members of the S. mitis group. Clinical correlation is recommended. Performed by [facility], [address] [place], [place] [address] [address] [email or web address] MD - Lab. Director Performed By: #### SPNAG #### [facility] [address] [place] [address] URINE Observed: 09/13/2018 Status: F Source: [facility] CULTURE,BACTERIAL 11:49 [facility] REPOSITORY PATIENT: OMAR VERA LOCATION: [address]#: [id number] : 38 AGE: SEX: M ORDERED BY: JAZMYN HAMILTON SOURCE: URINE COLLECTED: 09/13/18 23:49 ANTIBIOTICS AT LUCIA.: RECEIVED : 09/14/18 11:41 SITE: Clean Catch/Voided R E S U L T S URINE CULTURE,BACTERIAL FINAL 09/16/18 16:43 ISOLATE1 : Enterococcus faecalis >100,000 CFU/ML Organism Ec faecalis Antibiotic BP INTRP Ampicillin S Ciprofloxacin S Nitrofurantoin S Levofloxacin S Penicillin S Tetracycline R Vancomycin S S=SUSCEPTIBLE I=INTERMEDIATE R=RESISTANT SDD=SUSCEPTIBLE DOSE DEPENDENT NS=NONSUSCEPTIBLE X=REPORTED IN ERROR Performed By: #### URINC #### [facility] [address] [place] [address] GLUCOSE-POCT Collected: 09/13/2018 Status: F Source: [facility] 10:58 PM [facility]ICAL CENTER REPOSITORY TYPE CODE TESTS RESULT OUT OF RANGE REFERENCE UNITS LAB GLUP(LOINC) 74 - 99 mg/dL High 251 GLUCOSE-POCT Performed By: #### GLUPO #### [facility] [address] [place] [address] ARTERIAL FULL PANEL Collected: 09/13/2018 Status: F Source: [facility] 8:10 PM MEDICAL CENTER REPOSITORY TYPE CODE TESTS RESULT OUT OF REFERENCE UNITS RANGE LAB PHART(LOIN 7.38 - 7.42 C) pH High 7.48 LAB PCO2A(LOIN 38 - 42 mmHg C) PCO2 Low 32 LAB PO2A(LOINC 85 - 95 mmHg ) PO2 High 132 LAB TEMP(LOINC degrees C ) PATIENT TEMPERATURE 37.0 Result Comment: NOTE: PATIENT RESULTS ARE NOT CORRECTED FOR TEMPERATURE. LAB FIO2(LOINC) 21 - 100 % FIO2 32 LAB SO2%A(LOINC) 94 - 100 % SO2 99 LAB HCTN(LOINC) 41.0 - % 52.0 HCT Low 36.0 LAB SODN(LOINC) 136 - 145 mmol/L SODIUM 136 LAB POTN(LOINC) 3.5 - 5.3 mmol/L POTASSIUM 3.5 LAB CHLN(LOINC) 98 - 107 mmol/L CHLORIDE 106 LAB IONCA(LOINC) 1.10 - mmol/L 1.33 CALCIUM, IONIZED 1.14 LAB GLUN(LOINC) 74 - 99 mg/dL GLUCOSE High 163 LAB LACTN(LOINC) 0.4 - 2.0 mmol/L LACTATE 1.3 LAB BSEXB(LOINC) -2.0 - mmol/L 3.0 BASE EXCESS-BLOOD 0.8 LAB BICAR(LOINC) 22.0 - mmol/L 26.0 BICARB, CALCULATED 23.8 LAB HGBNC(LOINC) 13.5 - g/dL 17.5 HGB, Low CALCULATED 12.2 LAB ANGPN(LOINC) 10 - 25 mmol/L ANION GAP 10 LAB BGSIT(LOINC) SITE OF R ARTERIAL PUNCTURE Radial LAB BGALL(LOINC) ALMA'S TEST[COLLATERAL Positive CIRCULATION] LAB APPAR(LOINC) APPARATUS Cannula Performed By: #### AFPA3 #### [place] [id number] APTT Collected: 09/13/2018 Status: F Source: [facility] 7:59 [facility] REPOSITORY TYPE CODE TESTS RESULT OUT OF RANGE REFERENCE UNITS LAB APTT(LOINC) 28 - 38 sec APTT 29 Result Comment: Note new reference range as of 07/13/2018. THE APTT IS NO LONGER USED FOR MONITORING UNFRACTIONATED HEPARIN THERAPY. FOR MONITORING HEPARIN THERAPY, USE THE HEPARIN ASSAY. Performed By: #### APTT #### [address] [address] PT/INR Collected: 09/13/2018 Status: F Source: [facility] 7:59 PM [facility] REPOSITORY TYPE CODE TESTS RESULT OUT OF REFERENCE UNITS RANGE LAB PT(LOINC) 9.7 - 12.7 sec PROTHROMBIN High TIME 15.4 Result Comment: Note new reference range as of 07/13/2018. LAB INR(LOINC) 0.9 - 1.1 High PT, INR 1.4 Performed By: #### PTINR #### [address] [address] LACTATE Collected: 09/13/2018 Status: F Source: [facility] 7:59 PM [facility] REPOSITORY TYPE CODE TESTS RESULT OUT OF REFERENCE UNITS RANGE LAB LACT(LOINC) 0.4 - 2.0 mmol/L LACTATE 1.6 Result Comment: Venipuncture immediately after or during the administration of Metamizole may lead to falsely low results. Testing should be performed immediately prior to Metamizole dosing. Performed By: #### LACT #### [facility] [address] [place] [address] COMPREHENSIVE PANEL Collected: 09/13/2018 Status: F Source: [facility] 7:59 PM [facility]ICAL [facility]ENTER REPOSITORY TYPE CODE TESTS RESULT OUT OF REFERENCE UNITS RANGE LAB GLU(LOINC) 74 - 99 mg/dL High GLUCOSE 161 LAB SOD(LOINC) 136 - 145 mmol/L SODIUM 138 LAB K(LOINC) 3.5 - 5.3 mmol/L POTASSIUM 3.8 Result Comment: MILD HEMOLYSIS DETECTED. The result may be falsely elevated due to hemolysis or other interferents. Clinical correlation is recommended. Repeat testing may be considered. LAB CHLOR(LOINC) 98 - 107 mmol/L CHLORIDE 102 LAB BIC(LOINC) 21 - 32 mmol/L BICARBONATE 25 LAB ANGAP(LOINC) 10 - 20 mmol/L ANION GAP 15 LAB UREA(LOINC) 6 - 23 mg/dL High UREA NITROGEN 29 LAB CREA(LOINC) 0.50 - mg/dL High 1.30 CREATININE 1.31 LAB GFRFN(LOINC) >60 mL/min/1.73 m2 GFR-NON Abnormal AM. 53 LAB GFRAA(LOINC) >60 mL/min/1.73 m2 GFR- AM. 64 Result Comment: CALCULATIONS OF ESTIMATED GFR ARE PERFORMED USING THE MDRD STUDY EQUATION FOR THE IDMS-TRACEABLE CREATININE METHODS. CLIN CHEM 2007;53:766-72 LAB CA(LOINC) 8.6 - 10.3 mg/dL CALCIUM Low 8.3 LAB ALB(LOINC) 3.4 - 5.0 g/dL ALBUMIN Low 2.7 LAB AP(LOINC) 33 - 136 U/L ALKALINE High PHOSPHATASE 174 LAB TP(LOINC) 6.4 - 8.2 g/dL TOTAL PROTEIN 7.7 LAB AST(LOINC) 9 - 39 U/L AST 28 Result Comment: MILD HEMOLYSIS DETECTED. The result may be falsely elevated due to hemolysis or other interferents. Clinical correlation is recommended. Repeat testing may be considered. LAB TBILI(LOINC) 0.0 - 1.2 mg/dL BILIRUBIN,TOTAL 0.9 LAB ALT(LOINC) 10 - 52 U/L ALT 20 Result Comment: Patients treated with Sulfasalazine may generate falsely decreased results for ALT. Performed By: #### CMP #### [address] [address] LIPASE Collected: 09/13/2018 Status: F Source: [facility] 7:59 PM [facility] REPOSITORY TYPE CODE TESTS RESULT OUT OF REFERENCE UNITS RANGE LAB LIPAS(LOINC 9 - 82 U/L ) LIPASE 25 Result Comment: Venipuncture immediately after or during the administration of Metamizole may lead to falsely low results. Testing should be performed immediately prior to Metamizole dosing. G-icviyw-v-benzoquinone imine (metabolite of Acetaminophen) will generate erroneously low results in samples for patients that have taken toxic doses of acetaminophen. Performed By: #### LIPAS #### [address] [address] CREATINE KINASE Collected: 09/13/2018 Status: F Source: [facility] 7:59 PM [facility] REPOSITORY TYPE CODE TESTS RESULT OUT OF REFERENCE UNITS RANGE LAB CK(LOINC) 0 - 325 U/L CREATINE 35 KINASE Performed By: #### CK #### [place] [id number] TROPONIN I Collected: 09/13/2018 Status: F Source: [facility] 7:59 [facility] REPOSITORY TYPE CODE TESTS RESULT OUT OF REFERENCE UNITS RANGE LAB TROP2(LOINC 0.00 - 0.03 ng/mL ) TROPONIN I 0.02 Result Comment: LESS THAN 0.04 NG/ML: NEGATIVE REPEAT TESTING IN FOUR TO SIX HOURS IF CLINICALLY INDICATED. 0.04 - 0.5 NG/ML: CONSISTENT WITH POSSIBLE CARDIAC DAMAGE AND POSSIBLE INCREASED CLINICAL RISK. SERIAL MEASUREMENTS MAY HELP ASSESS EXTENT OF MYOCARDIAL DAMAGE. >0.5 NG/ML: CONSISTENT WITH CARDIAC DAMAGE, INCREASED CLINICAL RISK AND MYOCARDIAL INFARCTION. SERIAL MEASUREMENTS MAY HELP ASSESS EXTENT OF MYOCARDIAL DAMAGE. . Note: Troponin I testing is performed using different testing methodology at [facility] than at other [facility]. Direct result comparisons should only be made within the same method. Performed By: #### TROP2 #### [place] [id number] CKMB Collected: 09/13/2018 Status: F Source: [facility] 7:59 PM MEDICAL CENTER REPOSITORY TYPE CODE TESTS RESULT OUT OF RANGE REFERENCE UNITS LAB CKMB(LOINC) ng/mL CKMB 1.7 Result Comment: CKMB testing is performed using different testing methodology at [facility] than at other system [facility]. Direct result comparisons should only be made within the same method. REF VALUES CKMB <7 and RI <4% :Negative CKMB <7 and RI >4% :Equivocal CKMB >=7 and RI <4% :Equivocal CKMB >=7 and RI >4% :Positive Performed By: #### CKMB #### [facility] [address] [place] [address] BNP Collected: 09/13/2018 Status: F Source: [facility] 7:59 PM [facility] REPOSITORY TYPE CODE TESTS RESULT OUT OF RANGE REFERENCE UNITS LAB BNP2(LOINC) 0 - 99 pg/mL BNP 92 Result Comment: . <100 pg/mL - Heart failure unlikely 100-299 pg/mL - Intermediate probability of acute heart . failure exacerbation. Correlate with clinical . context and patient history. >=300 pg/mL - Heart Failure likely. Correlate with clinical . context and patient history. BNP testing is performed using different testing methodology at [facility] than at other [facility]. Direct result comparisons should only be made within the same method. Performed By: #### BNP2 #### [facility] [address] [place] [address] Observed: 09/13/2018 Status: F Source: [facility] BLOOD CULTURE, 7:56 PM [facility] BACTERIAL REPOSITORY PATIENT: OMAR VERA LOCATION: [address]#: [id number] : 38 AGE: SEX: M ORDERED BY: JAZMYN HAMILTON SOURCE: Blood COLLECTED: 09/13/18 19:56 ANTIBIOTICS AT LUCIA.: RECEIVED : 09/13/18 23:06 SITE: right ANTECUBITAL R E S U L T S BLOOD CULTURE, BACTERIAL FINAL 09/18/18 23:42 No Growth at 1 days No Growth at 2 days No Growth at 3 days No Growth at 4 days NO GROWTH - FINAL REPORT Performed By: #### BLDC #### [facility] [address] [place] [id number] EMR ADDON Collected: 09/13/2018 Status: X Source: [facility] 7:51 PM MEDICAL CENTER REPOSITORY Order Comment: TEST EMR ADDON WAS CANCELLED, 09/13/2018 20:08 DUPLICATE. TYPE CODE TESTS RESULT OUT OF REFERENCE UNITS RANGE LAB EMRAC(LOIN C) ADDON CONFIRMATION Canceled Performed By: #### EMRAD #### [facility] [address] [place] [address] Observed: 09/13/2018 Status: F Source: [facility] BLOOD CULTURE, 7:45 PM MEDICAL CENTER BACTERIAL REPOSITORY PATIENT: OMAR VERA LOCATION: [address] BILL#: [id number] : 38 AGE: SEX: M ORDERED BY: JAZMYN HAMILTON SOURCE: Blood COLLECTED: 09/13/18 19:45 ANTIBIOTICS AT LUCIA.: RECEIVED : 09/13/18 23:04 SITE: left ANTECUBITAL R E S U L T S BLOOD CULTURE, BACTERIAL FINAL 09/18/18 23:42 No Growth at 1 days No Growth at 2 days No Growth at 3 days No Growth at 4 days NO GROWTH - FINAL REPORT Performed By: #### BLDC #### [facility] [address] [place] [address] CT HEAD WO CONTRAST Observed: 09/13/2018 Status: F Source: [facility] 7:30 PM MEDICAL CENTER REPOSITORY Patient Name: OMAR VERA STUDY: CT HEAD WO CONTRAST; CT C-SPINE WO CONTRAST;; 09/13/2018 7:30 pm INDICATION: Signs/Symptoms: SOB/TRAUMA. COMPARISON: None. ACCESSION NUMBER(S): [id number]; [id number] ORDERING CLINICIAN: JAZMYN HAMILTON TECHNIQUE: Noncontrast CT exams of the head and cervical spine. Multiplanar cervical spine reformations. FINDINGS: BRAIN PARENCHYMA: Moderate volume loss. There is periventricular and subcortical white matter hypoattenuation, most in keeping with chronic microvascular ischemic change. Asymmetric hypodensity in the right aspect of the morena, probably a chronic lacunar infarct. Delgadillo-white matter interfaces are preserved. No mass, mass effect or midline shift. HEMORRHAGE: No acute intracranial hemorrhage. VENTRICLES and EXTRA-AXIAL SPACES: Normal size. EXTRACRANIAL SOFT TISSUES: Within normal limits. PARANASAL SINUSES/MASTOIDS: The visualized paranasal sinuses and mastoid air cells are aerated. CALVARIUM: No depressed skull fracture. No destructive osseous lesion. OTHER FINDINGS: None. CERVICAL SPINE: Evaluation of the visible spine is slightly limited by motion artifact, particularly lower cervical levels and visible upper thoracic levels. ALIGNMENT: Normal. VERTEBRAE: No acute fracture. Multilevel large bridging anterior osteophytes. Mild focal ossification of posterior longitudinal ligament posterior to the C4 superior endplate. Multilevel small disc osteophytes. Minor multilevel bilateral hypertrophic facet arthropathy. SPINAL CANAL: No critical spinal canal stenosis. Moderate to severe, moderate and mild canal stenosis, respectively at C3-C4, C4- C5 and C6-C7 levels from small posterior disc protrusions. PREVERTEBRAL SOFT TISSUES: No prevertebral soft tissue swelling. LUNG APICES: Respiratory motion limits evaluation of the imaged lungs. No gross abnormality is seen in the visible lung parenchyma or pleura. OTHER FINDINGS: Incidental ligamentum nuchae ossification. IMPRESSION: No evidence of acute intracranial abnormality. No acute cervical spine fracture or malalignment. Electronically signed by: SONJA PEREZ MD CT C-SPINE WO Observed: 09/13/2018 Status: F Source: [facility] 7:30 PM MEDICAL CENTER REPOSITORY Patient Name: OMAR VERA STUDY: CT HEAD WO CONTRAST; CT C-SPINE WO CONTRAST;; 09/13/2018 7:30 pm INDICATION: Signs/Symptoms: SOB/TRAUMA. COMPARISON: None. ACCESSION NUMBER(S): [id number]; [id number] ORDERING CLINICIAN: JAZMYN HAMILTON TECHNIQUE: Noncontrast CT exams of the head and cervical spine. Multiplanar cervical spine reformations. FINDINGS: BRAIN PARENCHYMA: Moderate volume loss. There is periventricular and subcortical white matter hypoattenuation, most in keeping with chronic microvascular ischemic change. Asymmetric hypodensity in the right aspect of the morena, probably a chronic lacunar infarct. Delgadillo-white matter interfaces are preserved. No mass, mass effect or midline shift. HEMORRHAGE: No acute intracranial hemorrhage. VENTRICLES and EXTRA-AXIAL SPACES: Normal size. EXTRACRANIAL SOFT TISSUES: Within normal limits. PARANASAL SINUSES/MASTOIDS: The visualized paranasal sinuses and mastoid air cells are aerated. CALVARIUM: No depressed skull fracture. No destructive osseous lesion. OTHER FINDINGS: None. CERVICAL SPINE: Evaluation of the visible spine is slightly limited by motion artifact, particularly lower cervical levels and visible upper thoracic levels. ALIGNMENT: Normal. VERTEBRAE: No acute fracture. Multilevel large bridging anterior osteophytes. Mild focal ossification of posterior longitudinal ligament posterior to the C4 superior endplate. Multilevel small disc osteophytes. Minor multilevel bilateral hypertrophic facet arthropathy. SPINAL CANAL: No critical spinal canal stenosis. Moderate to severe, moderate and mild canal stenosis, respectively at C3-C4, C4- C5 and C6-C7 levels from small posterior disc protrusions. PREVERTEBRAL SOFT TISSUES: No prevertebral soft tissue swelling. LUNG APICES: Respiratory motion limits evaluation of the imaged lungs. No gross abnormality is seen in the visible lung parenchyma or pleura. OTHER FINDINGS: Incidental ligamentum nuchae ossification. IMPRESSION: No evidence of acute intracranial abnormality. No acute cervical spine fracture or malalignment. Electronically signed by: SONJA PEREZ MD CT CHEST WO CONTRAST Observed: 09/13/2018 Status: F Source: [facility] 7:30 PM MEDICAL CENTER REPOSITORY Patient Name: OMAR VERA STUDY: CT CHEST WO CONTRAST;; 09/13/2018 7:30 pm INDICATION: Signs/Symptoms: SOB/TRAUMA. COMPARISON: None. ACCESSION NUMBER(S): [id number] ORDERING CLINICIAN: JAZMYN HAMILTON TECHNIQUE: Noncontrast CT of the chest with multiplanar reformations. FINDINGS: VESSELS: Aorta and pulmonary artery are normal caliber. Atherosclerotic calcifications in the aorta and coronary arteries. HEART: Moderate cardiomegaly no pericardial effusion. MEDIASTINUM AND YOSELYN: No pathologically enlarged lymph nodes. LUNG, PLEURA, AND LARGE AIRWAYS: Respiratory motion limits evaluation of the lung parenchyma. A there is moderate to severe bilateral centrilobular emphysema. Moderate bilateral cylindrical bronchiectasis with multifocal segmental and subsegmental mucoid impaction. There are bilateral tree-in-bud opacities suggesting infectious/inflammatory pneumonitis. Mildly increased bilateral interstitial markings likely reflect chronic interstitial fibrosis with or without a component of mild acute pulmonary interstitial edema. There is left lower lobe consolidation with volume loss, probably reflecting a combination of atelectasis and pneumonia or aspiration. There are calcifications within the area of consolidative left lower lobe opacity, probably reflecting old granulomas. Underlying neoplasm related to the areas of abnormal parenchymal opacity cannot be excluded. There is a small loculated left basilar pleural effusion. No pleural effusion on the right. No pneumothorax. Central airways are patent. CHEST WALL AND LOWER NECK: Within normal limits. UPPER ABDOMEN: No acute abnormality of the partially visualized abdomen. Cholelithiasis without evidence of acute cholecystitis. There are bulky gastrohepatic lymph nodes measuring up to 2.4 x 2.4 cm in transaxial diameters. There is the suggestion of a subserosal mass arising exophytically from the lesser curvature the stomach on axial images 52 and 53, poorly delineated without IV contrast but measuring at least up to 2.7 x 2.0 cm in transaxial diameters. 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 BONES: No acute osseous abnormality. DISH of the thoracic spine. No suspicious osseous lesion is seen. IMPRESSION: No definite evidence of acute posttraumatic abnormality in the chest. Respiratory motion limits evaluation of the lung parenchyma. A there is moderate to severe bilateral centrilobular emphysema. Moderate bilateral cylindrical bronchiectasis with multifocal segmental and subsegmental mucoid impaction. There are bilateral tree-in-bud opacities suggesting infectious/inflammatory pneumonitis. Mildly increased bilateral interstitial markings likely reflect chronic interstitial fibrosis with or without a component of mild acute pulmonary interstitial edema. There is left lower lobe consolidation with volume loss, probably reflecting a combination of atelectasis with pneumonia or aspiration. There are calcifications within the area of consolidative left lower lobe opacity, probably reflecting old granulomas. Underlying neoplasm related to the areas of abnormal parenchymal opacity cannot be excluded. There is a small loculated left basilar pleural effusion. Empyema or malignant effusion are possibilities. Correlation with pleural fluid sampling may be helpful. No pleural effusion on the right. No pneumothorax. There are bulky gastrohepatic lymph nodes measuring up to 2.4 x 2.4 cm in transaxial diameters. There is the suggestion of a subserosal mass arising exophytically from the lesser curvature the stomach on axial images 52 and 53, poorly delineated without IV contrast but measuring at least up to 2.7 x 2.0 cm in transaxial diameters. 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 Recommend further workup with nonemergent CT abdomen and pelvis Electronically signed by: SONJA PEREZ MD PROVIDER NOTE - ED Observed: 09/13/2018 Status: COMPLETED Source: [facility] V2 7:12 PM MEDICAL CENTER REPOSITORY Provider Note - ED v2: Chart Review: ED NOTES ED NOTES: HPI: Patient is a 78 year old male with past medical history including COPD, HTN, remote CVA, diabetes mellitus, and hearing loss presenting to the ED for multiple mechanical falls. He states that his first mechanical fall was two weeks ago. He notes mild anorexia, productive cough, and rib pain. He notes that the rib pain is from a fall he had today. He denies ethanol use. He reports being treated for pneumonia one month ago. Patient expresses no further medical complaints at this time. Review of systems: All other systems are reviewed and negative except as noted in history of present illness. Physical Exam: General: Alert, nontoxic, well-appearing, and in no acute distress. HEENT: Head is normocephalic and atraumatic. PERRL and EOMI bilaterally. No scleral icterus or conjunctival pallor. Neck: Supple. No lymphadenopathy. Cardiovascular: Regular rate and rhythm. Normal S1-S2, no murmurs, rubs, or gallops. No JVD or peripheral pitting edema. Respiratory: Clear to auscultation bilaterally. Abdomen: Soft. Nontender. Nondistended. Normal bowel sounds and no hepatosplenomegaly. Musculoskeletal/Extremities: Full ROM. No joint tenderness or swelling. Neurologic: Alert and oriented 3. No gross focal neuro deficits. Skin: Warm dry and intact. No rash or lesions. Psychiatric: Normal mood. Normal affect. Medical Decision Making: Patient was seen and evaluated in the ED. Patient is a 78 year old male with past medical history including COPD, HTN, remote CVA, diabetes mellitus, and hearing loss presenting to the ED for multiple mechanical falls. Patient was ordered an EKG, chest x-ray, CT head, CT chest, CT cervical spine, urinalysis, and appropriate labs. Patient was given Duoneb 3 mL via Nebulizer and Solu-Medrol 125 mg IVPO. Patient's blood pressure was 150/79 and heart rate is 124 bpm. Differentials include, but not limited to: Differential include mechanical fall, visual disturbance, gait impairment, environmental hazards. Interpretations of Testing: Blood gas shows pH 7.48, pO2 132, pCO2 32. CMP revealed a glucose of 161, BUN 29, creatinine 1.31, GFR 53, albumin 2.7, alkaline phosphatase 174. INR 1.4, prothrombin time 15.4. Otherwise unremarkable. Per radiology, CT head and cervical spine show, No evidence of acute intracranial abnormality. No acute cervical spine fracture or malalignment. Per radiology, CT chest shows, No definite evidence of acute posttraumatic abnormality in the chest. Respiratory motion limits evaluation of the lung parenchyma. A there is moderate to severe bilateral centrilobular emphysema. Moderate bilateral cylindrical bronchiectasis with multifocal segmental and subsegmental mucoid impaction. There are bilateral tree-in-bud opacities suggesting infectious/inflammatory pneumonitis. Mildly increased bilateral interstitial markings likely reflect chronic interstitial fibrosis with or without a component of mild acute pulmonary interstitial edema. There is left lower lobe consolidation with volume loss, probably reflecting a combination of atelectasis with pneumonia or aspiration. There are calcifications within the area of consolidative left lower lobe opacity, probably reflecting old granulomas. Underlying neoplasm related to the areas of abnormal parenchymal opacity cannot be excluded. There is a small loculated left basilar pleural effusion. Empyema or malignant effusion are possibilities. Correlation with pleural fluid sampling may be helpful. No pleural effusion on the right. No pneumothorax. There are bulky gastrohepatic lymph nodes measuring up to 2.4 x 2.4 cm in transaxial diameters. There is the suggestion of a subserosal mass arising exophytically from the lesser curvature the stomach on axial images 52 and 53, poorly delineated without IV contrast but measuring at least up to 2.7 x 2.0 cm in transaxial diameters. 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 Recommend further workup with nonemergent CT abdomen and pelvis. Per radiology, chest x-ray shows, Constellation of findings suggestive of fluid overload demonstrated by a small left pleural effusion, bilateral pulmonary edema and cardiomegaly. 09/13/2018, 18:29: EKG obtained in the ED and interpreted by me indicates sinus tachycardia at a rate of 128 bpm, NAD. No old EKG for comparison. Reevaluation: 09/13/2018 203: I updated the patient regarding his lab and imaging results. I discussed the plan to admit. Patient and family were in agreement. Plan and Disposition: 09/13/2018, 19:32: I have reviewed the patients history, physical exam, and test information with the admitting physician, Dr. Upton, who agrees to admit the patient. I discussed the results and plan for admission with the patient. All questions were answered. Patient expressed understanding and felt comfortable with the plan. Impression: 1. weakness 2. ataxia 3. shortness of breath on exertion 4. COPD 5. pneumonia 6. Pleural effusion 7. Bronchiectasis HISTORY OF PRESENTING ILLNESS OMAR is a 78 year old Male and was seen by me at 13-Sep-2018 18:43 for a chief complaint of cough (patient arrives with and daughter, daughter states he is coughing more and not eating much, he also fell about 2 weeks and has been having general body pain since, daughter states he is falling more often, patient was recently treated for pneumonia (about a month ago)) . Triage Information: Most recent Vital Sign Value Date Temp (F): 98.4 09-13-2018 18:23 Temp (C): 36.9 09-13-2018 18:23 Heart Rate (beats/min): 124 09-13-2018 18:23 Respirations (breaths/min): 20 09-13-2018 18:23 SpO2 (%): 92 09-13-2018 18:23 BP Systolic (mm Hg): 150 09-13-2018 18:23 BP Diastolic (mm Hg): 79 09-13-2018 18:23 PAST MEDICAL HISTORY ATTESTATION: I have reviewed and confirmed nurse's/medic's notes for patient's medications, allergies, medical history, and surgical history ALLERGIES/INTOLERANCES: Allergy Allergen: NSAIDs Type: Drug Category Reaction: GI Bleeding Allergen: contrast (specific type unknown) Type: Contrast Reaction: Unknown HEALTH HISTORY: No documented data. OUTPATIENT MEDICATIONS: Home Medications Review Status for Reconciliation: Incomplete Med Status: Incomplete Medication History Drug Name: losartan Instructions: 75 milligram(s) orally once a day Drug Name: Toprol-XL 50 mg oral tablet, extended release Instructions: 1 tab(s) orally once a day Drug Name: metFORMIN 500 mg oral tablet Instructions: 1 tab(s) orally once a day SIGNIFICANT EVENTS: Past Medical History Description:Pneumonia RESULTS/VITAL SIGNS RESULTS: Recent Lab Results: I have reviewed these laboratory results: Arterial Full Panel 13-Sep-2018 20:10:00 ResultValue pH, Arterial 7.48 H pCO2, Arterial 32 L pO2, Arterial 132 H Patient-Temperature 37.0 FIO2 32 SO2, Arterial 99 HCT 36.0 L Sodium-Level 136 Potassium-Level 3.5 Chloride-Level 106 Calcium, Ionized-Level 1.14 Glucose-Level 163 H Lactate-Level 1.3 Base Excess-Blood 0.8 Bicarbonate, Calculated, Arterial 23.8 HGB, Calculated 12.2 L Anion Gap-Level 10 Site of Arterial Puncture R Radial Alma's Test (Collateral Circulation) Positive Apparatus Cannula Comprehensive Metabolic Panel 13-Sep-2018 19:59:00 ResultValue Glucose, Serum 161 H NA 138 K 3.8 CL 102 Bicarbonate, Serum 25 Anion Gap, Serum 15 BUN 29 H CREAT 1.31 H GFR-Non 53 A GFR- 64 Calcium, Serum 8.3 L ALB 2.7 L ALKP 174 H T Pro 7.7 T Bili 0.9 Alanine Aminotransferase, Serum 20 Aspartate Transaminase, Serum 28 PT + INR, Plasma 13-Sep-2018 19:59:00 ResultValue Prothrombin Time, Plasma 15.4 H International Normalized Ratio, Plasma 1.4 H Lipase, Serum 13-Sep-2018 19:59:00 ResultValue Lipase, Serum 25 Lactate, Level 13-Sep-2018 19:59:00 ResultValue Lactate, Level 1.6 Troponin I, Serum 13-Sep-2018 19:59:00 ResultValue Troponin I, Serum 0.02 Activated Partial Thromboplastin Time 13-Sep-2018 19:59:00 ResultValue Activated Partial Thromboplastin Time 29 Brain Natriuretic Peptide 13-Sep-2018 19:59:00 ResultValue Brain Natriuretic Peptide 92 Creatine Kinase, Level 13-Sep-2018 19:59:00 ResultValue Creatine Kinase, Level 35 CKMB 13-Sep-2018 19:59:00 ResultValue CKMB 1.7 Radiology Results: Impression: No definite evidence of acute posttraumatic abnormality in the chest. Respiratory motion limits evaluation of the lung parenchyma. A there is moderate to severe bilateral centrilobular emphysema. Moderate bilateral cylindrical bronchiectasis with multifocal segmental and subsegmental mucoid impaction. There are bilateral tree-in-bud opacities suggesting infectious/inflammatory pneumonitis. Mildly increased bilateral interstitial markings likely reflect chronic interstitial fibrosis with or without a component of mild acute pulmonary interstitial edema. There is left lower lobe consolidation with volume loss, probably reflecting a combination of atelectasis with pneumonia or aspiration. There are calcifications within the area of consolidative left lower lobe opacity, probably reflecting old granulomas. Underlying neoplasm related to the areas of abnormal parenchymal opacity cannot be excluded. There is a small loculated left basilar pleural effusion. Empyema or malignant effusion are possibilities. Correlation with pleural fluid sampling may be helpful. No pleural effusion on the right. No pneumothorax. There are bulky gastrohepatic lymph nodes measuring up to 2.4 x 2.4 cm in transaxial diameters. There is the suggestion of a subserosal mass arising exophytically from the lesser curvature the stomach on axial images 52 and 53, poorly delineated without IV contrast but measuring at least up to 2.7 x 2.0 cm in transaxial diameters. 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 Recommend further workup with nonemergent CT abdomen and pelvis CT Chest without Contrast [Sep 13 2018 8:00PM] Impression: No evidence of acute intracranial abnormality. No acute cervical spine fracture or malalignment. CT C Spine without Contrast [Sep 13 2018 7:47PM] Impression: No evidence of acute intracranial abnormality. No acute cervical spine fracture or malalignment. CT Head without Contrast [Sep 13 2018 7:47PM] Impression: 1. Constellation of findings suggestive of fluid overload demonstrated by a small left pleural effusion, bilateral pulmonary edema and cardiomegaly. Xray Chest 1 View [Sep 13 2018 7:19PM] VITAL SIGNS: T PRBP SpO2O2(LPM) %FiO2 Method 13-Sep-2018 21:42:[id number] 93 supplemental O2 13-Sep-2018 20:42:[id number] 95 supplemental O2 13-Sep-2018 19:40:[id number] 97 supplemental O2 13-Sep-2018 18:23:[id number]/79 92 room air, no respiratory support CLINICAL IMPRESSION Diagnosis/Annotation: ED Dx Name:Weakness Code:R53.1 Name:Ataxia Code:R27.0 Name:Short of breath on exertion Code:R06.02 Name:COPD (chronic obstructive pulmonary disease) Code:J44.9 Name:Bronchiectasis Code:J47.9 Name:Pleural effusion Code:J90 Name:Pneumonia Code:J18.9 Dispostion: hospitalized ATTESTATION Scribe Name: Balaji Fayena Scribing on Behalf of: Dr. Jazmyn Hamilton ATTENDING SCRIBE ATTESTATION STATEMENT I, Jazmyn aHmilton MD, attests all medical record entries made by the scribe were under my direction and personally dictated by me. I have reviewed the chart and agree that the record accurately reflects my performance of the history, physical, and assessment plan. I have also personally directed, reviewed, and agree with disposition instructions. CRITICAL CARE TIME Is this a critically ill patient: yes Billing Provider Critical Care Time (mins): 35 Primary Critical Care Issue/Treatment (See MDM/ED Course/Tx Plan for greater detail): (weakness ataxia shortness of breath on exertion COPD pneumonia Pleural effusion Bronchiectasis) Additional Critical Care Provided: direct patient care (not related to procedure), additional history taking, interpretation of diagnostic studies, documentation, consultation with other physicians and consult w/ pt's family directly relating to pts condition Electronic Signatures: Jazmyn Hamilton) (Signed 13-Sep-2018 22:39) Authored: Provider Note - ED v2 Balaji Slade (Scribe) (Entered 13-Sep-2018 19:19) Entered: Provider Note - ED v2 Last Updated: 13-Sep-2018 22:39 by Jazmyn Hamilton () References: 1. Data Referenced From Triage - ED 09/13/2018 06:23 PM CHEST 1 VIEW Observed: 09/13/2018 Status: F Source: [facility] 7:07 PM [facility] REPOSITORY Patient Name: OMAR VERA STUDY: TH CHEST 1 VIEW; 09/13/2018 7:07 pm INDICATION: Signs/Symptoms: SOB. COMPARISON: None. ACCESSION NUMBER(S): [id number] ORDERING CLINICIAN: JAZMYN HAMILTON FINDINGS: Single portable view of the chest. There is a small left pleural effusion with probable adjacent compressive atelectasis.. There is diffuse bibasilar interstitial markings and central vascular congestion. The cardiomediastinal silhouette is enlarged. There is no focal consolidation or pneumothorax. No acute osseous abnormality. IMPRESSION: 1. Constellation of findings suggestive of fluid overload demonstrated by a small left pleural effusion, bilateral pulmonary edema and cardiomegaly. Electronically signed by: OLIVIA REYNOLDS MD RISK SCREEN - ADULT Observed: 09/13/2018 Status: UNK Source: [facility] 6:52 PM [facility] Preferred Language: Preferred Language: Preferred Language for Discussing Health Care (patient/designee)Dutch Advanced Directives: Advance Directive Medicalno Family Violence Adult: Abuse Screen: Are you or have you been threatened or abused physically, emotionally, or sexually by anyoneno Suicide / Depression: Suicide/Depression Screen: During the past month, have you often been bothered by feeling down, depressed or hopelessno During the past month, have you often had little interest or pleasure in doing thingsno Have you had any thoughts of harming yourselfno (1) Have you had any thoughts of harming anyone elseno (1) Learning Assessment (Patient): Learning Assessment (Patient): Patient is Able to be Assessed for Learningyes Factors Influencing Readiness to Learnacuteness of illness Factors that Impact Ability to Learnhearing problems, language Devices/Methods Used to Communicatenone Learning Preferencesverbal instruction; written material Cultural Considerationsnone Developmental Considerationsnone Sabianism Considerationsnone Learning Assessment (Other Learner): Learning Assessment (Other Learner): Other learner availableno Fall Risk Adult: Falls Risk: Altered Mobilityunsteady gait, falls Change in Mental Statusno Relevant Medical History / Diagnosisnone Fall Historynone Altered Eliminationyes, incontinent Medications that Might Alter: equilibrium, cognitive judgement or severity of injurynone Sensory Deficitno UNABLE or UNWILLING to Follow Directionsno Patient Identified as a Falls Riskyes Pressure Injury: Pressure Injury Present on Admissionno Respiratory / Cough /TB: ED / TB / Cough / Respiratory Screen: Do you have a coughyes... Has your cough lasted longer than 2 weeksno Smoking/Social History (Required age 13 or older): Smoking Status: former smoker Admission Risk Screen: Significant IndicatorsComplete CAGE: CAGE: Is this an injured patient at a Trauma Center ([facility] / [facility]): no Electronic Signatures: Bautista Kingsley (GABY) (Signed 13-Sep-2018 18:53) Authored: Preferred Language, Advanced Directives, Family Violence Adult, Suicide / Depression, Learning Assessment (Patient), Learning Assessment (Other Learner), Fall Risk Adult, Pressure Injury, Respiratory / Cough /TB, Smoking/Social History (Required age 13 or older), CAGE Last Updated: 13-Sep-2018 18:53 by Bautista Kingsley (GABY) References: 1. Data Referenced From Triage - ED 09/13/2018 6:23 PM TRIAGE - ED Observed: 09/13/2018 Status: UNK Source: [facility] 6:23 PM [facility] REPOSITORY Quick Triage: The patient and/or guardian verbally acknowledges placement for services into the following (when Urgent Care Service hours are operating):emergency department Pain: Acceptable Pain Level (0-10)0 Pain Rating (0-10): Rest5 Pain Rating (0-10): Activity5 Pain Management Plan / Pain Scale Reviewpatient/family verbalize understanding Chart Review: CHIEF COMPLAINT OMAR VERA is a Male patient with a chief complaint of cough (patient arrives with and daughter, daughter states he is coughing more and not eating much, he also fell about 2 weeks and has been having general body pain since, daughter states he is falling more often, patient was recently treated for pneumonia (about a month ago)). Onset of the Complaint: 13-Sep-2018 18:45 Triage Date/Time: 13-Sep-2018 18:23 Pain Rating (0-10): Rest: 5 Pain Rating (0-10): Activity: 5 Acceptable Pain Level (0-10): 0 Pain location: general body Vital Signs: Temperature: 98.4F ( 36.9C) taken temporal Blood Pressure: 150/79 Mean: Heart Rate: 124 Respiratory Rate: 20 Pulse Oximetry: 92% on room air, no respiratory support. Height: 5 feet 7.00 inches. 170.1 CM Weight: 155.0 pounds. Calculated 70.3 kg. (stated) Calculated BMI (kg/m2): 24.296 Calculated BSA (m2) 1.82 Cough lasting greater than 3 weeks: no Patient immunocompromised related to: N/A Travel outside of [place]: no Allergies: yes Patient has suicidal thoughts: no Patient has homicidal thoughts: no CECILY: 2 Symptoms Are POSITIVE For: body aches, chest pain, congestion, cough and dyspnea. Symptoms Are Negative For: chills, diaphoresis, fever, headache and malaise. PAIN Pain Scale Used: ABDIRASHID ARRIVAL INFORMATION Means of Arrival: wheelchair Mode of Arrival: private vehicle Arrival From: home Accompanied By: self, immediate family member and spouse/significant other Language: Spoken Language Preferred: Dutch Reading Language Preferred: Dutch Building Cleaner Requested: no language interpreter was requested MDRO: History of MDRO: no Present on Arrival: Device Present on Arrival to ED: no Pressure Ulcer Present on Arrival to ED: no PAST MEDICAL HISTORY Immunization History: Last Known Tetanus Immunization: Unknown TRAVEL HISTORY Travel Exposure History: NO travel to International locations in the past 30 days Past Medical History: Past Medical History Reviewedyes Pneumonia: Past Medical History, Active Electronic Signatures: Bautista Kingsley (RN) (Signed 13-Sep-2018 18:45) Authored: Triage Amy Chauhan (RN) (Signed 13-Sep-2018 18:30) Authored: Triage, Past Medical History Last Updated: 13-Sep-2018 18:45 by Bautista Kingsley (RN) XR CHEST PA+LAT Observed: 08/16/2018 Status: F Source: [facility] 12:47 PM SYSTEM REPOSITORY EXAMINATION: XR CHEST 2 VIEW PA+LAT CLINICAL HISTORY: Cough TECHNOLOGISTS NOTE: COMPARISON: 06/11/2018, CT 11/28/2010 FINDINGS: Cardiomediastinal silhouette: Unchanged. Atherosclerotic calcifications are present in the vasculature. Trachea: No deviation Lungs/Pleura: The lungs are hyperinflated, with prominent reticular markings and bronchiectasis most pronounced at the lung bases, consistent with underlying chronic lung changes as better seen by CT 11/28/2010. There is probable pleural parenchymal scarring at the left lung base and chronic collapse of a portion of the left lower lobe, similar to the prior exams. There is no evidence of pneumothorax, definite pleural effusion or pulmonary edema. Musculoskeletal: Prominent osteophytes, similar to the prior exam. IMPRESSION: No significant change in the radiographic appearance of the chest with evidence of underlying chronic lung changes, as above. Please correlate clinically. MACRO: None XR CHEST PA+LAT Observed: 06/11/2018 Status: F Source: [facility] 4:11 PM SYSTEM REPOSITORY EXAMINATION: XR CHEST 2 VIEW PA+LAT CLINICAL HISTORY: CAP follow up TECHNOLOGISTS NOTE: COMPARISON: May 28, 2018 00:42 and additional studies dating back to May 18, 2008 FINDINGS: Cardiomediastinal silhouette: Normal. Trachea: No deviation. Lungs/Pleura: Hyperinflation of the lungs and coarsened interstitial opacities in the right lower lung. No focal pulmonary consolidation, effusion or pneumothorax. Musculoskeletal: Osteophytic endplate spurring and bridging of multiple thoracic vertebra.. IMPRESSION: 1. No acute cardiopulmonary findings. 2. Chronic obstructive pulmonary disease/emphysema. MACRO: None GLUCOSE, FINGERSTICK-IN Collected: 05/30/2018 Status: F Source: THE OFFICE 4:04 PM [facility] REPOSITORY TYPE CODE TESTS RESULT OUT OF RANGE REFERENCE UNITS LAB Uzbek 80-116 mg/dL GLUCOSE, 98 POC Performed By: #### [id number] #### NURSING GLUCOSE PROGRAM [address] [place], [id number] GLUCOSE, FINGERSTICK-IN Collected: 05/30/2018 Status: F Source: THE OFFICE 11:30 AM [facility] REPOSITORY TYPE CODE TESTS RESULT OUT OF RANGE REFERENCE UNITS LAB Uzbek 80-116 mg/dL High GLUCOSE, 191 POC Performed By: #### [id number] #### NURSING GLUCOSE PROGRAM [address] [place] [address], [id number] GLUCOSE, FINGERSTICK-IN Collected: 05/30/2018 Status: F Source: THE OFFICE 7:45 AM [facility] REPOSITORY TYPE CODE TESTS RESULT OUT OF RANGE REFERENCE UNITS LAB U[place] 80-116 mg/dL High GLUCOSE, 132 POC Performed By: #### [id number] #### NURSING GLUCOSE PROGRAM [address] [place] [address], [id number] COMPLETE BLOOD COUNT Collected: 05/30/2018 Status: F [facility] AM SYSTEM REPOSITORY TYPE CODE TESTS RESULT OUT OF RANGE REFERENCE UNITS LAB WBC 4.5-11.5 K/uL WBC 9.9 LAB RBC 4.50-5.90 M/uL RBC 5.12 LAB HGB 13.9-16.3 g/dL HGB 15.6 LAB HCT 41.0-53.0 % HCT 46.1 LAB MCV 80-100 fL MCV 90 LAB MCH 26.0-34.0 pg MCH 30.5 LAB MCHC 32.0-35.9 g/dL MCHC 33.8 LAB PLT 150-400 K/uL PLT 209 LAB RDW 11.5-14.5 % RDW-CV 13.0 LAB MPV 8.5-11.5 fL MPV 10.9 Performed By: #### CBC #### [facility] [address] [place] [address], [id number] BASIC METABOLIC PANEL Collected: 05/30/2018 Status: F [facility] 2:22 AM SYSTEM REPOSITORY TYPE CODE TESTS RESULT OUT OF REFERENCE UNITS RANGE LAB GLU 80-116 mg/dL GLU High 140 LAB NA3 135-148 mmol/L Low NA 133 LAB POT 3.3-5.3 mmol/L K 3.8 LAB CO2 21-30 mmol/L Low CO2 19 LAB CHLOR 97-111 mmol/L CL 105 LAB BUN 8-22 mg/dL BUN High 26 LAB CREAT 0.80-1.30 mg/dL CREAT 1.17 LAB CA 8.4-10.4 mg/dL CA 8.8 LAB ANION GAP 5-13 ANION GAP 13 LAB eGFR >=60 mL/min/1.73 Low sqm ESTIMATED GFR 59 (CKD-EPI) Performed By: #### [id number] #### [facility] [address] [place] [address], [id number] GLUCOSE, FINGERSTICK-IN Collected: 05/29/2018 Status: F Source: THE OFFICE 9:[address] [facility] REPOSITORY TYPE CODE TESTS RESULT OUT OF RANGE REFERENCE UNITS LAB U[place] 80-116 mg/dL High GLUCOSE, 148 POC Performed By: #### [id number] #### NURSING GLUCOSE PROGRAM [address] [place] [address], [id number] GLUCOSE, FINGERSTICK-IN Collected: 05/29/2018 Status: F Source: THE OFFICE 4:[address] [facility] REPOSITORY TYPE CODE TESTS RESULT OUT OF RANGE REFERENCE UNITS LAB U[place] 80-116 mg/dL GLUCOSE, 98 POC Performed By: #### [id number] #### NURSING GLUCOSE PROGRAM [address] [place] [address], [id number] GLUCOSE, FINGERSTICK-IN Collected: 05/29/2018 Status: F Source: THE OFFICE 11:37 AM [facility] REPOSITORY TYPE CODE TESTS RESULT OUT OF RANGE REFERENCE UNITS LAB U[place] 80-116 mg/dL High GLUCOSE, 257 POC Performed By: #### [id number] #### NURSING GLUCOSE PROGRAM [address] [place] [address], [id number] GLUCOSE, FINGERSTICK-IN Collected: 05/29/2018 Status: F Source: THE OFFICE 9:[address] [facility] REPOSITORY TYPE CODE TESTS RESULT OUT OF RANGE REFERENCE UNITS LAB U[place] 80-116 mg/dL High GLUCOSE, 215 POC Performed By: #### [id number] #### NURSING GLUCOSE PROGRAM [address] [place] [address], [id number] COMPLETE BLOOD COUNT Collected: 05/29/2018 Status: F Source: THE [facility] W/DIFF 3:01 AM SYSTEM REPOSITORY TYPE CODE TESTS RESULT OUT OF REFERENCE UNITS RANGE LAB WBC 4.5-11.5 K/uL WBC 9.8 LAB RBC 4.50-5.90 M/uL RBC 5.05 LAB HGB 13.9-16.3 g/dL HGB 15.6 LAB HCT 41.0-53.0 % HCT 45.6 LAB MCV 80-100 fL MCV 90 LAB MCH 26.0-34.0 pg MCH 30.9 LAB MCHC 32.0-35.9 g/dL MCHC 34.2 LAB PLT 150-400 K/uL PLT 188 LAB RDW 11.5-14.5 % RDW-CV 13.1 LAB MPV 8.5-11.5 fL MPV 10.7 LAB CPnT 31.0-76.0 % NEUTROPHILS 69.7 LAB CPIY 24.0-44.0 % Low LYMPHOCYTES 20.8 LAB CPmO 2.0-11.0 % MONOCYTES 8.6 LAB CPeO 0.1-4.0 % EOSINOPHIL 0.8 LAB CPbA <=1.9 % BASOPHILS 0.1 LAB nt 1.50-8.00 K/uL NEUTROPHIL # 6.81 LAB ly 1.00-4.80 K/uL LYMPHOCYTES # 2.03 LAB mo 0.20-1.00 K/uL MONOCYTE # 0.84 LAB eo 0.00-0.70 K/uL EOSINOPHIL # 0.08 LAB ba 0.00-0.20 K/uL BASOPHIL # 0.01 Performed By: #### CBCD #### [facility] [address] [place] [address], [id number] BASIC METABOLIC PANEL Collected: 05/29/2018 Status: F Source: [facility] 2:48 AM SYSTEM REPOSITORY TYPE CODE TESTS RESULT OUT OF RANGE REFERENCE UNITS LAB GLU 80-116 mg/dL High GLU 118 LAB NA3 135-148 mmol/L NA 136 LAB POT 3.3-5.3 mmol/L K 3.8 Result Comment: Hemolysis present LAB CO2 21-30 mmol/L CO2 24 LAB CHLOR 97-111 mmol/L CL 104 LAB BUN 8-22 mg/dL BUN High 23 LAB CREAT 0.80-1.30 mg/dL CREAT 1.06 LAB CA 8.4-10.4 mg/dL CA 8.6 LAB ANION GAP 5-13 ANION GAP 12 LAB eGFR >=60 mL/min/1.73sq m ESTIMATED GFR (CKD-EPI) 67 Performed By: #### CH8 #### [facility] [address] [place] [address], GLUCOSE, FINGERSTICK-IN Collected: 05/28/2018 Status: F Source: THE OFFICE 5:12 PM [facility] REPOSITORY TYPE CODE TESTS RESULT OUT OF RANGE REFERENCE UNITS LAB Uzbek 80-116 mg/dL High GLUCOSE, 119 POC Result Comment: Notified GABY BERMUDEZ MD Performed By: #### [id number] #### NURSING GLUCOSE PROGRAM [address] [place] [address], [id number] GLUCOSE, FINGERSTICK-IN Collected: 05/28/2018 Status: F Source: THE OFFICE 9:39 AM [facility] REPOSITORY TYPE CODE TESTS RESULT OUT OF RANGE REFERENCE UNITS LAB Uzbek 80-116 mg/dL High GLUCOSE, 160 POC Performed By: #### [id number] #### NURSING GLUCOSE PROGRAM [address] [place] [address], [id number] GLUCOSE, FINGERSTICK-IN Collected: 05/28/2018 Status: F Source: THE OFFICE 5:39 AM [facility] REPOSITORY TYPE CODE TESTS RESULT OUT OF RANGE REFERENCE UNITS LAB Uzbek 80-116 mg/dL High GLUCOSE, 135 POC Performed By: #### [id number] #### NURSING GLUCOSE PROGRAM [address] [place] [address], [address] URINALYSIS,AUTO-IN OFFICE Collected: Status: F Source: THE 05/28/2018 1:[address] SYSTEM REPOSITORY Order Comment: TEST PERFORMED AT: Emergency Department POC Laboratory [address] [place] [address] [place], [place] [address] TYPE CODE TESTS RESULT OUT OF RANGE REFERENCE UNITS LAB Color, Urine COLOR, POC Yellow LAB CLARITY CLARITY, POC Clear LAB Ph,urine 5.0-8.0 PH, URINE POC 8.0 LAB SPECIFIC GRAVITY 1.005 - 1.030 SPECIFIC 1.025 GRAVITY, POC LAB PROTEIN Negative Abnormal PROTEIN, >=300 URINE POC LAB GLUCOSE Negative Abnormal GLUCOSE, 100 URINE POC LAB KETONES Negative KETONES, Negative URINE POC LAB BILIRUBIN Negative BILIRUBIN, Negative URINE POC LAB UROBILINOGEN 0.2 - 1.0 UROBILINOGEN, 1.0 URINE POC LAB BLOOD Negative Abnormal BLOOD, URINE Trace POC LAB LEUKOCYTES Negative LEUKOCYTES, Negative URINE POC LAB NITRITES Negative NITRITES, Negative URINE POC Performed By: #### [id number] #### [facility] [address] [place] [address] [place], [place] XR CHEST PA+LAT Observed: 05/28/2018 Status: F Source: THE [place] 12:48 AM SYSTEM REPOSITORY EXAMINATION: XR CHEST 2 VIEW PA+LATED CLINICAL HISTORY: cough TECHNOLOGISTS NOTE: COMPARISON: Chest radiograph 06/04/2010 FINDINGS: Cardiomediastinal silhouette: Normal Trachea: No deviation Lungs/Pleura: Patchy opacity in the right lower lobe with infection possible in the proper clinical setting. Blunting of the left costophrenic angle suggestive of scarring or trace pleural effusion. Other: IMPRESSION: Patchy opacity at the right lower lobe with infection possible in the proper clinical setting. Blunting of the left costophrenic angle suggestive of scarring or trace pleural effusion. Suggest follow-up imaging to ensure resolution. MACRO: None CT HEAD W/O CONTRAST Observed: 05/28/2018 Status: F Source: THE [place] 12:42 AM SYSTEM REPOSITORY EXAMINATION: CT HEAD W/OED CLINICAL HISTORY: hx of CVA. New difficulty ambulating. LKWT around 7pm TECHNOLOGISTS NOTE: COMPARISON: MRI/MRA head 11/21/15.. TECHNIQUE: Thin axial imaging of the head was performed without intravenous contrast. FINDINGS: Acute Change: No evidence of acute hemorrhage, mass, or infarct. Chronic Changes: Extensive atherosclerotic calcifications of the bilateral vertebral arteries at the skull base with no significant change in the ectasia of the basilar artery better characterized on prior MR dated 11/21/2015. Ventricles and sulci: Within normal limits for age. Areas of low attenuation within subcortical and periventricular white matter which is nonspecific and can be seen in the setting of chronic microangiopathy. Other: The skull, included paranasal sinuses and orbits are unremarkable. IMPRESSION: No significant interval change to suggest an acute intracranial abnormality. MRI is more sensitive for acute processes such as infarction. MACRO: None URINALYSIS Collected: 05/28/2018 Status: F Source: THE 12:05 AM [place] SYSTEM REPOSITORY Order Comment: A negative leukocyte esterase AND negative nitrite test or absence of pyuria (urine WBC count <= 5-10) make a UTI (urinary tract infection) very unlikely in a non-neutropenic adult (<=5% likelihood in many studies). A positive leukocyte esterase, nitrite and/or pyuria is a nonspecific result. This can be seen in conditions other than a UTI e.g. asymptomatic bacteriuria, gynecologic infections, sexually transmitted infections, and noninfectious conditions (positive predictive value for UTI around 50%) TYPE CODE TESTS RESULT OUT OF RANGE REFERENCE UNITS LAB UCOLOR Yellow U COLOR Yellow LAB UAPP Clear U APPEAR Clear LAB U PH 5.0-8.0 U PH 7.0 LAB USG U SG 1.019 LAB UPROTEIN Negative mg/dL Abnormal U PROTEIN 100 LAB U BLOOD Negative U BLOOD Negative LAB URINBILI Negative U BILI Negative LAB U UROBILI 0.1 - 1.0 mg/dL Abnormal U UROBILI 2.0 LAB UKETONE Negative mg/dL U KETONE Negative LAB U LEUK Negative U LEUK Negative LAB UNITR Negative U NITRITE Negative LAB UGLU Negative mg/dL Abnormal GLUCOSE, 50 URINE LAB U WBC 0-2 /HPF U WBC 0-2 LAB U RBC 0-2 /HPF Abnormal U RBC 3-5 LAB U MUCOUS U MUCOUS Present Performed By: #### UAC #### [facility] [address] [place] [address], [id number] COMPLETE BLOOD COUNT Collected: 05/28/2018 Status: F Source: THE [facility] W/DIFF 12:05 AM SYSTEM REPOSITORY TYPE CODE TESTS RESULT OUT OF REFERENCE UNITS RANGE LAB WBC 4.5-11.5 K/uL WBC High 14.4 LAB RBC 4.50-5.90 M/uL RBC 5.18 LAB HGB 13.9-16.3 g/dL HGB 16.1 LAB HCT 41.0-53.0 % HCT 47.2 LAB MCV 80-100 fL MCV 91 LAB MCH 26.0-34.0 pg MCH 31.1 LAB MCHC 32.0-35.9 g/dL MCHC 34.1 LAB PLT 150-400 K/uL PLT 215 LAB RDW 11.5-14.5 % RDW-CV 13.2 LAB MPV 8.5-11.5 fL MPV 11.0 LAB CPnT 31.0-76.0 % NEUTROPHILS High 83.0 LAB CPIY 24.0-44.0 % Low LYMPHOCYTES 9.2 LAB CPmO 2.0-11.0 % MONOCYTES 7.7 LAB CPeO 0.1-4.0 % Low EOSINOPHIL 0.0 LAB CPbA <=1.9 % BASOPHILS 0.1 LAB nt 1.50-8.00 K/uL NEUTROPHIL High # 11.95 LAB ly 1.00-4.80 K/uL LYMPHOCYTES # 1.32 LAB mo 0.20-1.00 K/uL MONOCYTE # High 1.11 LAB eo 0.00-0.70 K/uL EOSINOPHIL # 0.00 LAB ba 0.00-0.20 K/uL BASOPHIL # 0.02 Performed By: #### CBCD #### [facility] [address] [place] [address], BASIC METABOLIC PANEL Collected: 05/28/2018 Status: F Source: THE [facility] 12:05 AM SYSTEM REPOSITORY TYPE CODE TESTS RESULT OUT OF REFERENCE UNITS RANGE LAB GLU 80-116 mg/dL GLU High 152 LAB NA3 135-148 mmol/L Low NA 133 LAB POT 3.3-5.3 mmol/L K 4.0 LAB CO2 21-30 mmol/L CO2 24 LAB CHLOR 97-111 mmol/L CL 102 LAB BUN 8-22 mg/dL BUN 22 LAB CREAT 0.80-1.30 mg/dL CREAT 1.23 LAB CA 8.4-10.4 mg/dL CA 9.0 LAB ANION GAP 5-13 ANION GAP 11 LAB eGFR >=60 mL/min/1.73 Low sqm ESTIMATED GFR 56 (CKD-EPI) Performed By: #### CH8, MG #### S [facility] LAB[facility] [address] [place] [address], MAGNESIUM Collected: 05/28/2018 Status: F Source: THE [facility] 12:05 AM SYSTEM REPOSITORY TYPE CODE TESTS RESULT OUT OF RANGE REFERENCE UNITS LAB mag 1.6-2.8 mg/dL MG 1.9 Performed By: #### CH8, MG #### S [facility] LAB[facility] [address] [place] [address], HEMOGLOBIN A1C Collected: 05/12/2018 Status: F Source: THE 12:36 PM [facility] SYSTEM REPOSITORY Order Comment: HbA1c of 5.7-6.4% have increased risk for diabetes and CV(Source :ADA 2014 Standard of Medical Care in Diabetes) TYPE CODE TESTS RESULT OUT OF REFERENCE UNITS RANGE LAB HB A1C 4.0-5.6 % HB High A1C 6.4 LAB EAG mg/dL ESTIMATED 137 AVERAGE GLUCOSE Performed By: #### HB A1C #### [facility] [address] [place] [address], COMPLETE BLOOD COUNT Collected: 01/22/2018 Status: F Source: [facility] [address] 4:47 PM SYSTEM REPOSITORY TYPE CODE TESTS RESULT OUT OF RANGE REFERENCE UNITS LAB WBC 4.5-11.5 K/uL WBC 7.9 LAB RBC 4.50-5.90 M/uL RBC 5.06 LAB HGB 13.9-16.3 g/dL HGB 15.1 LAB HCT 41.0-53.0 % HCT 45.8 LAB MCV 80-100 fL MCV 91 LAB MCH 26.0-34.0 pg MCH 29.8 LAB MCHC 32.0-35.9 g/dL MCHC 33.0 LAB PLT 150-400 K/uL PLT 215 LAB RDW 11.5-14.5 % RDW-CV 13.5 LAB MPV 8.5-11.5 fL MPV 10.9 Performed By: #### CBC #### [facility] [address] [place] [address], BASIC METABOLIC PANEL Collected: 01/22/2018 Status: F [facility]: [facility] 4:47 PM SYSTEM REPOSITORY TYPE CODE TESTS RESULT OUT OF REFERENCE UNITS RANGE LAB GLU 80-116 mg/dL GLU 114 LAB NA3 135-148 mmol/L NA 139 LAB POT 3.3-5.3 mmol/L K 4.2 LAB CO2 21-30 mmol/L CO2 29 LAB CHLOR 97-111 mmol/L CL 102 LAB BUN 8-22 mg/dL BUN High 24 LAB CREAT 0.80-1.30 mg/dL CREAT High 1.37 LAB CA 8.4-10.4 mg/dL CA 9.4 LAB ANION GAP 5-13 ANION GAP 12 LAB eGFR >=60 mL/min/1.73 Low sqm ESTIMATED GFR 49 (CKD-EPI) Performed By: #### CH8, HEPATIC, TSH HS, HDL #### [facility] [address] [place] [address], HEPATIC FUNCTION Collected: 01/22/2018 Status: F Source: [facility] PANEL 4:47 PM SYSTEM REPOSITORY TYPE CODE TESTS RESULT OUT OF REFERENCE UNITS RANGE LAB ALB 3.4-5.1 g/dL ALB 3.7 LAB DBILI 0.10-0.30 mg/dL DBIL 0.10 LAB TBILI 0.1-1.5 mg/dL TBIL 0.6 LAB ALKPHOS 40-200 IU/L ALK 103 LAB ALT2 7-40 IU/L ALT 12 LAB AST2 7-40 IU/L AST 17 LAB tp 5.7-8.1 g/dL TP 7.0 Performed By: #### CH8, HEPATIC, TSH HS, HDL #### [facility] [address] [place] [address], TSH, HIGH SENSITIVITY Collected: 01/22/2018 Status: F Source: THE 4:47 PM [facility] REPOS[facility] TYPE CODE TESTS RESULT OUT OF RANGE REFERENCE UNITS LAB TSH HS 0.450-5.330 uIU/mL TSH HS 1.117 Performed By: #### CH8, HEPATIC, TSH HS, HDL #### [facility] [address] [place] [address], FULL LIPID PROFILE Collected: 01/22/2018 Status: F Source: THE [facility] 4:47 PM SYSTEM REPOSITORY TYPE CODE TESTS RESULT OUT OF REFERENCE UNITS RANGE LAB CHO <181 mg/dL CHOL 158 LAB TRIG <151 mg/dL TRIG 77 LAB HDL CHOL >44 mg/dL HDL CHOL 57 LAB LDL <111 mg/dL LDL 91 LAB I9 <130 mg/dL NON-HDL CHOLESTEROL 101 LAB CHOLHDL CHOL/HDL 2.77 LAB LDL/HDL <3.57 LDL/HDL 1.60 Performed By: #### CH8, HEPATIC, TSH HS, HDL #### [facility] [address] [place] [address], GLUCOSE, FINGERSTICK-IN Collected: 01/22/2018 Status: F Source: THE OFFICE 3:[address] [facility] REPOSITORY TYPE CODE TESTS RESULT OUT OF RANGE REFERENCE UNITS LAB Uzbek 80-116 mg/dL High GLUCOSE, 175 POC Performed By: #### [id number] #### NURSING GLUCOSE PROGRAM [address] [place] [address], [address] HEMOGLOBIN A1C Collected: 12/04/2017 Status: F Source: THE 5:36 PM [facility] REPOSITORY Order Comment: HbA1c of 5.7-6.4% have increased risk for diabetes and CV(Source :ADA 2014 Standard of Medical Care in Diabetes) TYPE CODE TESTS RESULT OUT OF REFERENCE UNITS RANGE LAB HB A1C 4.0-5.6 % HB High A1C 7.0 LAB EAG mg/dL ESTIMATED 154 AVERAGE GLUCOSE Performed By: #### HB A1C #### [facility] [address] [place], [address] GLUCOSE, FINGERSTICK-IN Collected: 12/04/2017 Status: F Source: THE OFFICE 3:01 PM [facility] REPOS[facility] TYPE CODE TESTS RESULT OUT OF RANGE REFERENCE UNITS LAB Uzbek 80-116 mg/dL High GLUCOSE, 153 POC Result Comment: Notified GABY BERMUDEZ MD Performed By: #### [id number] #### NURSING GLUCOSE PROGRAM [address] [place], [address] ALLERGIES ALLERGIES DATE TYPE / CODE NAME / CODE REACTION SEVERITY SOURCE 09/30/2018 Drug Iodinated Unknown Unknown [facility] Allergy/416 [facility]rast- [facility] 818322(SNOM and IV Repository ED CT) Dye/[id number](R XNORM) 09/30/2018 Drug NSAIDS GI BLEED Unknown [facility] Allergy/416 (Non-Steroidal Hospital 006386(SNOM Anti-Inflamma/F0 [address]) 82292007(RXNORM) 07/13/2001 DRUG ASPIRIN [facility] INGREDI/419 System Repository 323939(SNOM ED CT) 07/13/2001 Drug IODINATED [facility] Class/26957 CONTRAST MEDIA System Repository 1003(SNOMED CT) ENCOUNTERS ENCOUNTERS ADMIT/DISCHARGE ACCOUNT NUMBER ADMITTING ENCOUNTER LOCATION SOURCE CLASS 10/13/2018 [id number] Ambulatory [id number] [facility] Repository 10/06/2018 [id number] Ambulatory [facility] ding:MRI Repository 10/04/2018 [id number] [facility] [place] [facility]TCUR[facility] Repository : UGL88Xav: 1 09/30/2018/10/04/19 [id number] Elvis Caballero Inpatient [place] 19 [facility] ding:PCURoom Repository : XSL418Yuq: 1 09/30/2018 [id number] Elvis Caballero Ambulatory BMSBuilding: [place] BMS.WIP [facility] Repository 09/30/2018 [id number] Elvis Caballero Ambulatory BMSBuilding: Mandeep BMS.CF.WSA [facility] Repository 09/30/2018 [id number] Elvis Caballero Ambulatory BMSBuilding: [place] BMS.W[facility] Repository 09/30/2018 [id number] Jopperi, Elvis Ambulatory BMSBuilding: Mandeep BMS..[facility] Repository 09/30/2018 [id number] Jopperi, Elvis Ambulatory BMSBuilding: [place] BMS.CF.[facility] Repository 09/30/2018 [id number] Jopperi, Elvis Ambulatory BMSBuilding: [place] BMS.[facility] Repository 09/30/2018 [id number] Jopperi, Elvis Ambulatory BMSBuilding: [place] BMS..[facility] Repository 09/30/2018 [id number] Jopperi, Elvis Ambulatory BMSBuilding: Mandeep BMS..[facility] Repository 09/30/2018 [id number] Jopperi, Elvis Ambulatory BMSBuilding: [place] BMS.[facility] Repository 09/30/2018 [id number] Jopperi, Elvis Ambulatory BMSBuilding: [place] BMS.[facility] Repository 09/20/2018/09/30/19 [id number] Dion Cruz Chi Inpatient Mandeep Mandeep 19 Encounter [facility] ding:TCURoom Repository : CKM37Wdh: 1 09/13/2018/09/20/20 [id number] Ej Upton Inpatient 9531Building [facility] 18 Encounter :IW1PSHLsnw: [facility] [id number]: Repository [id number] 08/19/2018 [id number] [facility] Repository 08/16/2018 [id number] Unknown [facility]ulatory [facility] Repository 08/16/2018/08/16/20 [id number] Unknown Ambulatory [facility] The [facility] Repository 07/27/2018/07/27/20 [id number] Unknown [facility]ulatory [facility] The [facility] Repository 07/22/2018/07/22/20 [id number] Unknown Ambulatory [facility] The [facility] Repository 07/20/2018/07/20/20 [id number] Unknown Ambulatory [facility] The [facility] Repository 07/08/2018/07/08/20 [id number] Unknown Ambulatory [facility] The [facility] Repository 07/06/2018/07/06/20 [id number] Unknown Ambulatory [facility] The [facility] Repository 06/24/2018/06/24/20 [id number] Unknown Ambulatory [facility] The [facility] Repository 06/11/2018 [id number] Unknown Ambulatory [facility] Repository 06/11/2018/06/11/20 [id number] Unknown Ambulatory [facility] The [facility] Repository 06/02/2018/06/02/20 [id number] Unknown [facility]ulatory [facility] The [facility] Repository 05/29/2018/05/30/20 [id number] DASARATHY, Inpatient [facility] The 18 JAIVIDHYA Encounter [facility] om: G081Tlu: System 01 Repository 05/28/2018 [id number] Unknown Ambulatory [facility] Repository 05/28/2018 [id number] Unknown [facility]ulatory [facility] Repository 05/12/2018/05/12/20 [id number] Unknown Ambulatory [facility] The [facility] Repository 02/17/2018/02/18/20 [id number] Unknown [facility]ulatory [facility] The [facility] Repository 01/22/2018/01/23/20 [id number] Unknown [facility]ulatory [facility] The [facility] Repository 12/04/2017 [id number] Unknown [facility]ulatory [facility] Repository PAYERS PAYERS ENCOUNTER GUARANTOR PAYER SUBSCRIBER SOURCE 10/13/2018 OMAR MAURICIO[id number] Insurance:Medicare Hospitals DREXEL HMOPolicy Number: Repository [id number] Date:Plan Name:[address]: () 10/06/2018 OMAR Romano [id number] Primary OMAR Romano LEEDOB: Mandeep VELEZ Insurance:MEDICARE PART [id number] BPolicy Number: [place] [id number]: [id number] Repository Date:2018-10-06 () 10/06/2018 Secondary OMAR Romano LEEDOB: Mandeep Insurance:MEDICAL [id number] Number: Repository [id number] Date:5032-79-83NE [address] [address]IA: 10/06/2018 Tertiary Insurance:SELF NOT GIVENUNK [place] PAY [place] Number: Effective Hospital Date:2018-10-06 Repository 10/04/2018 OMAR Romano [id number] Primary OMAR Romano LEEDOB: Mandeep KELLEY LOPEZEN Insurance:MEDICARE PART [id number] [facility] BPolicy Number: [place] [id number]: [id number] Repository Date:2018-10-04 () 10/04/2018 Secondary OMAR VERADOB: [place] Insurance:MEDICAL [id number] Number: Repository [id number] Date:4923-87-56LB [address] [address]UQ: 10/04/2018 Tertiary Insurance:SELF NOT GIVENUNK [place] PAY [place] Number: Effective Hospital Date:2018-10-04 Repository 09/30/2018 OMAR Romano [id number] Primary OMAR Romano LEEDOB: Mandeep K[address]LEY [address]SE[address] Insurance:MEDICARE PART [id number] Health [facility] BPolicy Number: [place] [id number]: [id number] Repository Date:2018-09-30 () 09/30/2018 Secondary OMAR Romano LEEDOB: Mandeep Insurance:MEDICAL [id number] Number: Repository [id number] Date:1971-77-90UF [address] [place], [place] [phone]: 09/30/2018 Tertiary Insurance:SELF NOT GIVENUNK [facility]ande[place] [facility] Number: Effective Hospital Date:2018-09-30 Repository 09/30/2018 OMAR Franklin [id number] Primary OMAR L LEEDOB: [place] DREXEL [address]SEVEN Insurance:MEDICARE PART [id number] BPolicy Number: [place] [id number]: [id number] Repository Date:2018-09-30 () 09/30/2018 Secondary OMAR L LEEDOB: [place] Insurance:MEDICAL [id number] TriPoint Medical Center [facility] Number: Repository [id number] Date:5153-46-04EI [address] [place] [address]NE: 09/30/2018 Tertiary Insurance:SELF NOT GIVENUNK [facility]andeep [facility] Number: Effective Hospital Date:2018-09-30 Repository 09/30/2018 DUCK K [id number] Primary DUCK K LEEDOB: [place] DREXEL [address]SEVEN Insurance:MEDICARE PART [id number] [facility] BPolicy Number: [place] [id number]: [id number] Repository Date:2018-09-30 () 09/30/2018 Secondary OMAR K LEEDOB: Mandeep Insurance:MEDICAL [id number] TriPoint Medical Center Hospital Number: Repository [id number] Date:1465-43-35FV [address] [place], [place] [phone]: 09/30/2018 Tertiary Insurance:SELF NOT GIVENUNK Mandeep [facility] Number: Effective Hospital Date:2018-09-30 Repository 09/30/2018 DUCK K [id number] Primary DUCK K LEEDOB: Mandeep DREXEL DRSE[address] Insurance:MEDICARE PART [id number] University Health [facility] Hospital BPolicy Number: Hospital [id number]: [id number] Repository Date:2018-09-30 () 09/30/2018 Secondary OMAR VERADOB: Mandeep Insurance:MEDICAL [id number] TriPoint [facility] Center [facility] Number: Repository [id number] Date:3844-31-89ENSt[place] [phone]: 09/30/2018 Tertiary Insurance:SELF NOT GIVENUNK Mandeep [facility]Y [facility] Number: Effective Hospital Date:2018-09-30 Repository 09/30/2018 OMAR [id number] Primary OMAR Romano LEEDOB: [place] DREX[address]SE[address] Insurance:MEDICARE PART [id number] BPolicy Number: [place] [id number]: [id number] Repository Date:2018-09-30 () 09/30/2018 Secondary OMAR Romano LEEDOB: [place] Insurance:MEDICAL [id number] TriPoint [facility] Center Hospital Number: Repository [id number] Date:2009-62-50VHSt[place] [phone]: 09/30/2018 Tertiary Insurance:SELF NOT GIVENUNK Mandeep [facility] Number: Effective Hospital Date:2018-09-30 Repository 09/30/2018 OMAR Romano [id number] Primary OMAR Romano LEEDOB: Mandeep DREXEL DRSEVEN Insurance:MEDICARE PART [id number] BPolicy Number: [place] [id number]: [id number] Repository Date:2018-09-30 () 09/30/2018 Secondary OMAR VERADOB: [place] Insurance:MEDICAL [id number] TriPoint Medical Center Hospital Number: Repository [id number] Date:1982-81-65QJ [address] [address]BF: 09/30/2018 Tertiary Insurance:SELF NOT GIVENUNK [place] [facility]Y [facility] Number: Effective Hospital Date:2018-09-30 Repository 09/30/2018 OMAR Romano [id number] Primary OMAR Romano LEEDOB: Mandeep ANGELAXKRISSY [address]SEVEN Insurance:MEDICARE PART [id number] University Health [facility] Hospital BPolicy Number: Hospital [id number]: [id number] Repository Date:2018-09-30 () 09/30/2018 Secondary OMAR Romano LEEDOB: Mandeep Insurance:MEDICAL [id number] TriPoint Medical Center Hospital Number: Repository [id number] Date:3189-57-27HU [place] [phone]: 09/30/2018 Tertiary Insurance:SELF NOT GIVENUNK [place] PAY [facility] Number: Effective Hospital Date:2018-09-30 Repository 09/30/2018 OMAR Romano [id number] Primary OMAR Romano LEEDOB: Mandeep ANGELAXKRISSY [address]SEVEN Insurance:MEDICARE PART [id number] University Health [facility] BPolicy Number: [place] [id number]: [id number] Repository Date:2018-09-30 () 09/30/2018 Secondary OMAR VERADOB: [place] Insurance:MEDICAL [id number] TriPoint Medical Center Hospital Number: Repository [id number] Date:2168-97-67GISt[place] [phone]: 09/30/2018 Tertiary Insurance:SELF NOT GIVENUNK [place] PAY [facility] Number: Effective Hospital Date:2018-09-30 Repository 09/30/2018 OMAR Romano [id number] Primary OMAR Romano LEEDOB: [place] ANGELAXEL [address]SEVEN Insurance:MEDICARE PART [id number] University Health [facility] BPolicy Number: Hospital [id number]: [id number] Repository Date:2018-09-30 () 09/30/2018 Secondary OMAR Romano LEEDOB: [place] Insurance:MEDICAL [id number] TriPoint Medical Center Hospital Number: Repository [id number] Date:1205-04-17OQ [address] [place] [address]IM: 09/30/2018 Tertiary Insurance:SELF NOT GIVENUNK Mandeep [facility]Y [facility] Number: Effective Hospital Date:2018-09-30 Repository 09/30/2018 DUCK K [id number] Primary DUCK K LEEDOB: [place] DREXEL DRSEVEN Insurance:MEDICARE PART [id number] [facility] BPolicy Number: Hospital [id number]: [id number] Repository Date:2018-09-30 () 09/30/2018 Secondary DUCK K LEEDOB: [place] Insurance:MEDICAL [id number] TriPoint Medical Center Hospital Number: Repository [id number] Date:6204-50-91CO [address] [place] [phone]: 09/30/2018 Tertiary Insurance:SELF NOT GIVENUNK Mandeep [facility] Number: Effective Hospital Date:2018-09-30 Repository 09/30/2018 DUCK K [id number] Primary DUCK K LEEDOB: Mandeep [address] Insurance:MEDICARE PART [id number] BPolicy Number: [place] [address]Tel: [id number] Repository Date:2018-09-30 () 09/30/2018 Secondary DUCK K LEEDOB: [place] Insurance:MEDICAL [id number] Number: Repository [id number] Date:5926-90-17XB [address] [place], [place] [address]WP: 09/30/2018 Tertiary Insurance:SELF NOT GIVENUNK [facility]andeep [facility] Number: Effective Hospital Date:2018-09-30 Repository 09/20/2018 DUCK L [id number] Primary DUCK L LEEDOB: Mandeep DREX[address] Insurance:MEDICARE PART [id number] Hospital BPolicy Number: Hospital [id number]: [id number] Repository Date:2018-09-20 () 09/20/2018 Secondary OMAR MCCARTYB: Mandeep Insurance:MEDICAL [id number] Number: Repository [id number] Date:8627-99-33WF [address] [place], [place] [address]: 09/20/2018 Tertiary Insurance:[facility]LF [facility] Number: Effective Hospital Date:2018-09-20 Repository 09/13/2018 OMAR Romano BIBIANAB: Primary OMAR Rosalina LEEDOB: [facility] Insurance:MedicarePolic [id number] [facility] y Number: [address] Repository DRIVESEVEN [id number] [place], [place] Date:2253-75-07Btxy [place], [place] [address]Mfz: (216) Name:Benjamin Urban [id number]: () [phone] () 09/13/2018 Secondary OMAR Romano BENJIDOB: [facility] Medical Insurance:MedicarePolic [id number] Center y Number: [address] Repository [id number] [place] Date:6730-18-45Lslq [place], [place] Name:Benjamin Larson [address]Ann: () 09/13/2018 Tertiary OMAR Rosalina BIBIANAB: [facility] Medical Insurance:Medical [id number] [place] [address] [address] Repository Number: DRIVESEVEN [id number] [place], [place] Date:Plan Name:Health [address]Wzy: () 08/19/2018 OMAR MCCARTYB: Primary OMAR MCCARTYB: [facility] [place] Insurance:MEDICARE PART [id number] [facility] Number: [address] [place] [id number] [facility] [address]Nrj: (216) Date:2004-05-22 [place] [address]Aiq: [phone] (HP) (HP) 08/19/2018 Secondary OMAR Romano LEEDOB: [facility] Insurance:MEDICAL [id number] System MUTUAL [address] Repository TRADITIONALPolicy AGUSTIN [place], Number: [place] [address]Crd: [id number] Date:2015-09-21 (HP) 08/16/2018 DUCK Rosalina LEEDOB: Primary DUCK K LEEDOB: [facility] [place] Insurance:MEDICARE PART [id number] System DREXEL ERICAEVEN APolicy Number: [address] Repository [place] [id number] AGUSTIN [place], [address]Zrf: (216) Date:2004-05-22 [place] [address]Dtp: [phone] (HP) (HP) 08/16/2018 Secondary DUCK Rosalina LEEDOB: [facility] Insurance:MEDICAL [id number] System MUTUAL [address] Repository TRADITIONALPolicjena [place], Number: [place] [address]Ljs: [id number] Date:2015-09-21 () 08/16/2018 DUCK Rosalina LEEDOB: Primary DUCK Rosalina LEEDOB: [facility] [place] Insurance:MEDICARE PART [id number] System DREXEL ERICAEVEN APolicy Number: [address] Repository [place] [id number] AGUSTIN [place], [address]Bkl: (216) Date:2004-05-22 [place] [address]Wup: [phone] (HP) (HP) 08/16/2018 Secondary DUCK Rosalina LEEDOB: [facility] Insurance:MEDICAL [id number] System MUTUAL [address] Repository TRADITIONALPolicy AGUSTIN [place], Number: [place] [address]Ugi: [id number] Date:2015-09-21 (HP) 07/27/2018 DUCK Rosalina LEEDOB: Primary DUCK Rosalina LEEDOB: [facility] Insurance:[facility]ICARE PART [id number] System [address]RE[address]SE[address] APolicy Number: [address] Repository [place] [id number] AGUSTIN [place], [address]Dej: (216) Date:2004-05-22 [place] [address]Sdu: [phone] (HP) (HP) 07/27/2018 Secondary DUCK Rosalina LEEDOB: [facility] Insurance:MEDICAL [id number] System MUTUAL [address] Repository TRADITIONALPolicy AGUSTIN [place], Number: [place] [address]Ssa: [id number] Date:2015-09-21 (HP) 07/22/2018 OMAR Romano LEEDOB: Primary OMAR Romano LEEDOB: [facility] [place] Insurance:MEDICARE PART [id number] System [address]SEVEN APolicy Number: [address] Repository [place], [place] [id number] AGUSTIN [place], [address]Itr: (216) Date:2004-05-22 [place] [address]Sjz: [phone] (HP) (HP) 07/22/2018 Secondary OMAR Romano LEEDOB: [facility] Insurance:MEDICAL [id number] System MUTUAL [address] Repository TRADITIONALPolicy AGUSTIN [place], Number: [place] [address]Vnr: [id number] Date:2015-09-21 (HP) 07/20/2018 DUCK Rosalina LEEDOB: Primary DUCK Rosalina LEEDOB: [facility] [place] Insurance:MEDICARE PART [id number] System [address]RE[address]SEVEN APolicy Number: [address] Repository [place], [place] [id number] AGUSTIN [place], [address]Wdu: (216) Date:2004-05-22 [place] [address]Dlb: [phone] (HP) (HP) 07/20/2018 Secondary DUCK K LEEDOB: [facility] Insurance:MEDICAL [id number] System MUTUAL [address] Repository TRADITIONALPolicy AGUSTIN [place], Number: [place] [address]Zmu: [id number] Date:2015-09-21 (HP) 07/08/2018 DUCK K LEEDOB: Primary DUCK K LEEDOB: [facility] [place] Insurance:MEDICARE PART [id number] System DREXEL DRSEVEN APolicy Number: [address] Repository [place], [place] [id number] AGUSTIN [place], [address]Puj: (216) Date:2004-05-22 [place] [address]Gho: [phone] (HP) (HP) 07/08/2018 Secondary DUCK K LEEDOB: [facility] Insurance:MEDICAL [id number] System MUTUAL [address] Repository TRADITIONALPolicy AGUSTIN [place], Number: [place] [address]Txq: [id number] Date:2015-09-21 (HP) 07/06/2018 DUCK K LEEDOB: Primary DUCK Rosalina LEEDOB: [facility] Insurance:MEDICARE PART [id number] System DREXEL [address]SEVEN APolicy Number: 30 [address]SY [place] [id number] AGUSTIN [place], [address]Vwi: (216) Date:2004-05-22 [place] [address]Vaz: [phone] (HP) (HP) 07/06/2018 Secondary DUCK Rosalina LEEDOB: [facility] Insurance:MEDICAL [id number] System MUTUAL [address] Repository TRADITIONALPolicy AGUSTIN [place], Number: [place] [address]Ojd: [id number] Date:2015-09-21 (HP) 06/24/2018 DUCK K LEEDOB: Primary DUCK K LEEDOB: [facility] Insurance:MEDICARE PART [id number] System [address]REXEL DRSEVEN APolicy Number: 30 [address] Repository [place] [id number] AGUSTIN [place], [address]Vtz: (216) Date:2004-05-22 [place] [address]Jaw: [phone] (HP) (HP) 06/24/2018 Secondary OMAR Romano LEEDOB: [facility] Insurance:MEDICAL [id number] System MUTUAL [address] Repository TRADITIONALPolicy AGUSTIN [place], Number: [place] [address]Pwm: [id number] Date:2015-09-21 (HP) 06/11/2018 OMAR Romano LEEDOB: Primary DUCK Rosalina LEEDOB: [facility] [place] Insurance:MEDICARE PART [id number] System DREXEL DRSEVEN APolicy Number: 30 [address] [place], [place] [id number] AGUSTIN [place], [address]Xal: (216) Date:2004-05-22 [place] [address]Ull: [phone] (HP) (HP) 06/11/2018 Secondary OMAR Romano LEEDOB: [facility] Insurance:MEDICAL [id number] System MUTUAL [address] Repository TRADITIONALPolicjena [place], Number: [place] [address]Mea: [id number] Date:2015-09-21 (HP) 06/11/2018 DUCK Rosalina LEEDOB: Primary DUCK Rosalina LEEDOB: [facility] Insurance:MEDICARE PART [id number] System DREXEL DRSEVEN APolicy Number: [address] Repository [place] [id number] AGUSTIN [place], [address]Ygm: (216) Date:2004-05-22 [place] [address]Qam: [phone] (HP) (HP) 06/11/2018 Secondary OMAR Romano LEEDOB: [facility] Insurance:MEDICAL [id number] System MUTUAL [address] Repository TRADITIONALPolicy AGUSTIN [place], Number: [place] [address]Rnx: [id number] Date:2015-09-21 () 06/02/2018 OMAR Romano LEEDOB: Primary OMAR Romano LEEDOB: [facility] [place] Insurance:MEDICARE PART [id number] System DREXEL DRSEVEN APolicy Number: [address] Repository [place], [place] [id number] AGUSTIN [place], [address]Yog: (216) Date:2004-05-22 [place] [address]Ubx: [phone] (HP) () 06/02/2018 Secondary OMAR Romano LEEDOB: [facility] Insurance:MEDICAL [id number] System MUTUAL [address] Repository Linda [place], Number: [place] [address]Abi: [id number] Date:2015-09-21 () 05/29/2018 DUCK Rosalina LEEDOB: Primary DUCK Rosalina LEEDOB: [facility] [place] Insurance:MEDICAL [id number] System DREXEL DRSEVEN MUTUAL 30 D[address] Repository [facility]ENTER[facility]olic[facility] VELEZ [place], [address]Wgb: (216) Number: [place] [address]Jjh: [phone] () [id number] Date:2015-09-21 () 05/29/2018 Secondary OMAR Romano LEEDOB: [facility] Insurance:MEDICARE PART [id number] System APolicy Number: [address] Repository [id number] AGUSTIN [place], Date:2004-05-22 [place] [address]Kee: () 05/28/2018 OMAR Romano LEEDOB: Primary DUCK Rosalina LEEDOB: [facility] Insurance:MEDICAL [id number] System DREXEL DRSEVEN MUTUAL [address] Repository [place] TRADITIONALPolicjena VELEZ [place], [address]Syf: (216) [place]: [place] [address] [phone] () [id number] Date:2015-09-21 05/28/2018 Secondary DUCK K LEEDOB: [facility] Insurance:MEDICARE PART [id number] System APolicy Number: [address] Repository [id number] AGUSTIN [place], Date:2004-05-22 [place] [address] 05/28/2018 DUCK K LEEDOB: Primary DUCK K LEEDOB: [facility] [place] Insurance:MEDICAL [id number] System DREXEL DRSEVEN MUTUAL [address] Repository [place] TRADITIONALPolicy [facility], [address]Jac: (216) [place]: [place] [id number] [phone] () [id number] Date:2015-09-21 05/28/2018 Secondary DUCK K LEEDOB: [facility] Insurance:MEDICARE PART [id number] System APolicy Number: [address] Repository [id number] AGUSTIN [place], Date:2004-05-[place] [address] 05/12/2018 DUCK K LEEDOB: Primary DUCK K LEEDOB: [facility] [place] Insurance:MEDICAL [id number] System DREXEL DRSEVEN MUTUAL [address] Repository [place] TRADITIONALPolicAd[facility], [address]Yhi: (216) [place]: [place] [phone] () [id number] Date:2015-09-21 05/12/2018 Secondary DUCK K LEEDOB: [facility] Insurance:MEDICARE PART [id number] System APolicy Number: [address] Repository [id number] AGUSTIN [place], Date:2004-05-[place] [address] 02/17/2018 DUCK K LEEDOB: Primary DUCK K LEEDOB: [facility] [place] Insurance:MEDICAL [id number] System DREXEL DRSEVEN MUTUAL [address] Repository [place] TRADITIONALPolicy [facility], [address]Cof: (216) [place]: [place] [address] [phone] (HP) [id number] Date:2015-09-21 02/17/2018 Secondary DUCK K LEEDOB: [facility] Insurance:MEDICAL [id number] System MUTUAL [address] Repository TRADITIONALPolicy [place]USTIN [place], Number: [place] [address] [id number] Date:2015-09-21 01/22/2018 DUCK Rosalina LEEDOB: Primary DUCK K LEEDOB: [facility] Insurance:MEDICAL [id number] System [address]REXEL DRSEVEN MUTUAL [address] Repository [place] TRADITIONALPolicy AGUSTIN [place], [address]Obt: (216) [place]: [place] [address] [phone] (HP) [id number] Date:2015-09-21 01/22/2018 Secondary DUCK K LEEDOB: [facility] Insurance:MEDICAL [id number] System MUTUAL [address] Repository TRADITIONALPolicy [place], Number: [place] [address] [id number] Date:2015-09-21 12/04/2017 DUCK K LEEDOB: Primary DUCK K LEEDOB: [facility] Insurance:MEDICAL [id number] System DREXEL DRSEVEN MUTUAL [address] Repository [place] TRADITIONALPolicy AGUSTIN [place], [address]Ams: (216) [place]: [place] [address] [phone] (HP) [id number] Date:2015-09-21 12/04/2017 Secondary DUCK K LEEDOB: [facility] Insurance:MEDICAL [id number] System MUTUAL [address] Repository TRADITIONALPolicy [place], Number: [place] [address] [id number] Date:2015-09-21
== END ==
PROVIDERS: Referring Provider Internal Medicine Hematology & Oncology; Visit Provider Internal Medicine Hematology & Oncology
DX: C7A.092 Malignant carcinoid tumor of the stomach (principal)
CPT/HCPCS: 74183; A9585